=== PATIENT | female | born 1960 | race American Indian/Alaskan Native ===

== ENCOUNTER 2017-04-20 18:13 | Inpatient (IN) | payer MEDICAID ==
[2017-04-20 18:13] VITALS: BMI 42.7
--- NOTE | 2017-04-20 19:08 | C.PDOC ---
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 Patient reports weeping discharge from the wound and a fever yesterday but none today. Denies SOB or vomiting. Time Seen by Provider: 04/20/17 19:02 Chief Complaint (Nursing): Lower Extremity Problem/Injury History Per: Patient History/Exam Limitations: no limitations Onset/Duration Of Symptoms: Days Current Symptoms Are (Timing): Still Present Recent travel outside of the [place]: No Past Medical History Reviewed: Historical Data, Nursing Documentation, Vital Signs Vital Signs: Last Vital Signs Temp 98.1 F 04/20/17 18:35 Pulse 71 04/20/17 18:35 Resp 20 04/20/17 18:35 BP 163/78 H 04/20/17 18:35 Pulse Ox 95 04/20/17 19:58 - Medical History PMH: Anxiety (NO MED), Arthritis, Bronchitis, Diabetes, HTN, Hypercholesterolemia, Migraine Surgical History: No Surg Hx - [facility] Procedures ASSISTANCE WITH RESPIRATORY VENTILATION, 24-96 HRS, CPAP (11/25/16) VENOUS CATHETERIZATION NEC (04/07/14) Family History: States: Unknown Family Hx - Social History Hx Tobacco Use: Yes Hx Alcohol Use: No Hx Substance Use: Yes (on methadone 90 mg po) - Immunization History Hx Tetanus Toxoid Vaccination: Yes Hx Influenza Vaccination: Yes Hx Pneumococcal Vaccination: Yes Review Of Systems Respiratory: Negative for: Shortness of Breath Gastrointestinal: Negative for: Vomiting Musculoskeletal: Positive for: Other (Left lower leg non-healing wound) Neurological: Positive for: Weakness (Left arm from previous CVA), Numbness ( Left arm from previous CVA) Physical Exam - Physical Exam Additional Physical Exam Comments: Constitutional: No acute distress. Head: Normocephalic. Atraumatic. Eyes: PERRL. ENT: Moist mucous membranes. Neck: Supple. Cardiovascular: Regular rate. Radial pulse 2+ bilaterally. Chest: No tenderness. Respiratory: Clear to auscultation bilaterally. GI: Soft. Nontender. Nondistended. Back: No CVA tenderness. Musculoskeletal: Left lower leg w/ bandage Skin: No rash. Neurologic: Alert, no focal deficit. ED Course And Treatment - Laboratory Results Result Diagrams: 04/20/17 19:43 04/20/17 20:03 O2 Sat by Pulse Oximetry: 95 Medical Decision Making Medical Decision Making: Impression: 56 year old female with non-healing wound to lower left leg. Plan: * EKG * Blood work * CXR * Urinalysis * Duoneb EKG: NSR at 85. No acute ST/T wave changes CXR no acute disease. Dr. Godinez accepts patient to his service. Consult placed for Dr. Huynh, who suggests patient may need graft. Disposition - Disposition Disposition: HOSPITALIZED Disposition Time: 20:24 Condition: GUARDED - Clinical Impression Clinical Impression: Diabetic ulcer of lower extremity - Scribe Statement The provider has reviewed the documentation as recorded by the Scribjulisa Ramsey All medical record entries made by the Scribe were at my direction and personally dictated by me. I have reviewed the chart and agree that the record accurately reflects my personal performance of the history, physical exam, medical decision making, and the department course for this patient. I have also personally directed, reviewed, and agree with the discharge instructions and disposition.
[2017-04-20 19:46] LABS: EOS # 0.3 K/uL (0.0-0.7); LYMPH # 2.4 K/uL (1.0-4.3); MEAN CORPUSCULAR HEMOGLOBIN 22.1 pg (27.0-31.0); MEAN CORPUSCULAR HGB CONC 30.2 g/dL (33.0-37.0)
[2017-04-20] MEDS ORDERED: Albuterol-Ipratrop 3 mg / 0.5 (3 ml) UD IH STA (19:49)
[2017-04-20 19:56] LABS: INR 0.9
[2017-04-20 20:11] LABS: BASO % 0.4 % (0.0-2.0); EOS % 4.1 % (0.0-4.0); HEMATOCRIT 38.9 % (34.0-47.0); LYMPH % 30.7 % (20.0-40.0); MEAN PLATELET VOLUME 9.2 fL (7.2-11.7); MONO # 0.5 K/uL (0.0-0.8); MONO % 6.9 % (0.0-10.0); RED CELL DISTRIBUTION WIDTH 17.6 % (11.5-14.5)
[2017-04-20] MEDS ORDERED: Albuterol-Ipratrop 3 mg / 0.5 (3 ml) UD ONE (20:16)
[2017-04-20 20:18] LABS: CHLORIDE 97 mmol/L (98-107)
[2017-04-20 20:19] LABS: SODIUM 138 mmol/L (132-148)
[2017-04-20 20:21] LABS: ALB/GLOB RATIO 0.8 (1.0-2.1); ALKALINE PHOSPHATASE 99 U/L (38-126); AST/SGOT 16 U/L (14-36); BILIRUBIN,TOTAL 0.4 mg/dL (0.2-1.3); BLOOD UREA NITROGEN 17 mg/dL (7-17); CARBON DIOXIDE 33 mmol/L (22-30); GFR AFRICAN-AMERICAN > 60; GLUCOSE,RANDOM 167 mg/dL (65-105); TOTAL PROTEIN 7.4 g/dL (6.3-8.3)
[2017-04-20 20:22] LABS: ALT/SGPT 17 U/L (9-52); CALCIUM 8.1 mg/dl (8.6-10.4)
[2017-04-20 21:57] LABS: RBC URINE 3 /hpf (0-3); URINE BACTERIA RARE (<OCC); URINE BILIRUBIN NEGATIVE (NEGATIVE); URINE BLOOD NEGATIVE (NEGATIVE); URINE COLOR Yellow (YELLOW); URINE GLUCOSE (UA) NORMAL (Normal); URINE KETONE NEGATIVE (NEGATIVE); URINE LEUKOCYTE ESTERASE 1+ Leu/uL (Negative); URINE PROTEIN 2+ mg/dL (NEGATIVE); URINE UROBILINOGEN NORMAL mg/dL (0.2-1.0); WBC URINE 13 /hpf (0-5)
[2017-04-20] MEDS: Clindamycin 300 MG in Sodium Chloride 0.9% 50 ML IVPB SCH (22:30)
[2017-04-21] MEDS: Clindamycin 300 MG in Sodium Chloride 0.9% 50 ML IVPB SCH ×4 (04:28→22:08)
[2017-04-21] MEDS: (Novolog) Insulin Aspart, Recombinant 100 u/ml 10 ml vial SC SCH ×4 (07:46→22:09)
--- NOTE | 2017-04-21 08:15 | RAD ---
HISTORY: diabetic leg wound COMPARISON: 11/27/2016 FINDINGS: LUNGS: Diffuse increased interstitial lung markings suggestive for infiltrate and or edema. Prominent patchy bibasilar airspace opacities which may represent infiltrate and or atelectasis. PLEURA: As above. CARDIOVASCULAR: Mild cardiomegaly. OSSEOUS STRUCTURES: Degenerative changes in the spine and shoulders. VISUALIZED UPPER ABDOMEN: Normal. OTHER FINDINGS: None. IMPRESSION: Diffuse increased interstitial lung markings suggestive for infiltrate and or edema. Prominent patchy bibasilar airspace opacities which may represent infiltrate and or atelectasis.
[2017-04-21] MEDS ORDERED: Albuterol-Ipratrop 3 mg / 0.5 (3 ml) UD INH STA (09:53)
[2017-04-21] MEDS: (Novolog Mix 70/30) Insulin Aspart/Insulin Aspar 100 units/ml SC SCH ×2 (10:26→18:51)
[2017-04-21] MEDS: Enoxaparin 40 mg Syringe SC SCH (10:27)
[2017-04-21] MEDS: Methadone 40 mg Tab PO SCH (10:28)
[2017-04-21] MEDS ORDERED: Albuterol-Ipratrop 3 mg / 0.5 (3 ml) UD INH PRN (11:45)
[2017-04-21] MEDS ORDERED: Naproxen 275 mg Tab PO SCH ×2 (11:45→18:00)
--- NOTE | 2017-04-21 12:01 | CP.PCM.CON ---
History of Present Illness - History of Present Illness History of Present Illness: Ms. Collins is a 56 yo female pt w/ pmhx. sign for DM, HTN, and CVA who was seen at bedside this morning concerning left leg wound. Pt was sent by her science tutor Dr. Huynh yesterday to the ED. Pt says that she has had this wound to the left leg for about 1 week in duration. Does complain of some tenderness to the wound edges. Says she has been seeing Dr. Huynh at the office and has been cleaning and applying dressing. She says wound has not improved and is getting worse. Denies f/n/v/c/sob/cp. Denies any other pedal complaints. Review of Systems - Review of Systems Review of Systems: All systems reviewed and found to be negative except HPI findings above. Past Patient History - Infectious Disease Hx of Infectious Diseases: None - Past Medical History & Family History Past Medical History?: Yes - Past Social History Smoking Status: Current Some Days Smoker - CARDIAC Hx Cardiac Disorders: Yes Hx Hypercholesterolemia: Yes Hx Hypertension: Yes Other/Comment: hx CVA with residual left arm weakness and numbness - PULMONARY Hx Respiratory Disorders: Yes Hx Bronchitis: Yes - NEUROLOGICAL Hx Neurological Disorder: Yes Hx Migraine: Yes - HEENT Hx HEENT Problems: Yes Other/Comment: wears prescription eyeglasses - RENAL Hx Chronic Kidney Disease: No - ENDOCRINE/METABOLIC Hx Endocrine Disorders: Yes Hx Diabetes Mellitus Type 1: Yes - HEMATOLOGICAL/ONCOLOGICAL Hx Blood Disorders: No Hx Blood Transfusions: No Hx Blood Transfusion Reaction: No - INTEGUMENTARY Hx Dermatological Problems: No - MUSCULOSKELETAL/RHEUMATOLOGICAL Hx Musculoskeletal Disorders: Yes Hx Arthritis: Yes Hx Falls: No - GASTROINTESTINAL Hx Gastrointestinal Disorders: Yes Hx Constipation: Yes - GENITOURINARY/GYNECOLOGICAL Hx Genitourinary Disorders: No - PSYCHIATRIC Hx Psychophysiologic Disorder: Yes Hx Anxiety: Yes (NO MED) Hx Substance Use: Yes (on methadone 90 mg po) - SURGICAL HISTORY Hx Surgeries: Yes Hx Section: Yes Other/Comment: BOTH LEGS SKIN GRAFT - ANESTHESIA Hx Anesthesia: Yes Hx Anesthesia Reactions: No Hx Malignant Hyperthermia: No Has any member of the family had a problem w/ anesthesia?: No Meds Allergies/Adverse Reactions: Allergies Allergy/AdvReac Type Severity Reaction Status Date / Time No Known Allergies Allergy Verified 04/20/17 18:34 - Medications Medications: Current Medications Albuterol/Ipratropium (Duoneb 3 Mg/0.5 Mg (3 Ml) Ud) 3 ml INH RQ6 PRN PRN Reason: Wheezing Amlodipine Besylate (Norvasc) 10 mg PO DAILY [facility] Last Admin: 04/21/17 10:28 Dose: 10 mg Carvedilol (Coreg) 3.125 mg PO BID [facility] Last Admin: 04/21/17 10:28 Dose: 3.125 mg Enoxaparin Sodium (Lovenox) 40 mg SC DAILY [facility] Last Admin: 04/21/17 10:27 Dose: 40 mg Clindamycin Phosphate 300 mg/ (Sodium Chloride) 52 mls @ 100 mls/hr IVPB Q6H [facility] Last Admin: 04/21/17 10:27 Dose: 100 mls/hr Insulin Aspart (Novolog) 0 unit SC ACHS [facility] PRN Reason: Protocol Last Admin: 04/21/17 11:41 Dose: 1 unit Insulin Aspart (Novolog Mix 70/30 (70/30 Units/Ml)) 36 units SC QPM [facility] Insulin Aspart (Novolog Mix 70/30 (70/30 Units/Ml)) 40 units SC QAM [facility] Last Admin: 04/21/17 10:26 Dose: 40 units Losartan Potassium (Cozaar) 50 mg PO DAILY [facility] Last Admin: 04/21/17 10:28 Dose: 50 mg Methadone HCl (Methadose) 120 mg PO DAILY [facility] Last Admin: 04/21/17 10:28 Dose: 120 mg Mupirocin (Bactroban Ointment) 0 gm TOP BID [facility] Last Admin: 04/21/17 11:39 Dose: 1 applic Naproxen (Anaprox) 275 mg PO BID [facility] Rosuvastatin Calcium (Crestor) 10 mg PO [facility] Physical Exam - Constitutional Appears: Non-toxic, No Acute Distress - Extremities Exam Extremities exam: Negative for: calf tenderness Additional comments: LLE focused exam: VASC- DP/PT pulses are palpable, skin temp runs warm to cool, cap refill < 3 sec to all digits, no pedal edema noted DERM- full thickness ulceration is noted to distal aspect of leg, wound appears mixed fibro-granular base, no malodor, no surrounding erythema, no ascending cellulitis, no purulence, slight serous drainage is noted, no fluctuance, no underming, (-) probe to bone NEURO- pedal sensation slightly diminished ORTHO- slight tenderness noted on palpation of wound bed and border - Neurological Exam Neurological exam: Alert, CN II-XII Intact, Oriented x3 - Psychiatric Exam Psychiatric exam: Normal Affect, Normal Mood Results - Vital Signs Recent Vital Signs: Last Vital Signs Temp 97.8 F 04/21/17 08:15 Pulse 107 H 04/21/17 10:15 Resp 20 04/21/17 08:15 BP 148/92 H 04/21/17 08:15 Pulse Ox 93 L 04/21/17 08:15 - Labs Result Diagrams: 04/20/17 19:43 04/20/17 20:03 Labs: Laboratory Results - last 24 hr 04/20/17 04/20/17 04/21/17 20:45 21:32 07:21 POC Glucose (mg/dL) 200 H Urine Color Yellow Urine Clarity Hazy Urine pH 6.0 Ur Specific [place] 1.019 Urine Protein 2+ H Urine Glucose (UA) Normal Urine Ketones Negative Urine Blood Negative Urine Nitrate Negative Urine Bilirubin Negative Urine Urobilinogen Normal Ur Leukocyte Esterase 1+ H Urine WBC (Auto) 13 H Urine RBC (Auto) 3 Ur Squamous Epith Cells 15 H Urine Bacteria Rare Blood Type A NEGATIVE Antibody Screen Negative 04/21/17 11:32 POC Glucose (mg/dL) 160 H Urine Color Urine Clarity Urine pH Ur Specific [place] Urine Protein Urine Glucose (UA) Urine Ketones Urine Blood Urine Nitrate Urine Bilirubin Urine Urobilinogen Ur Leukocyte Esterase Urine WBC (Auto) Urine RBC (Auto) Ur Squamous Epith Cells Urine Bacteria Blood Type Antibody Screen Assessment & Plan - Assessment and Plan (Free Text) Assessment: 56 yo female patient with chronic non-healing ulceration of left leg Plan: Pt S&E at bedside Plan discussed with attending Dr. Huynh Wound cleansed with sterile normal saline, bactroban, xeroform, DSD dressing applied Wound cx ordered c/w IV abx per ID (on clinda 300 mg IV q6) Full WBAT to left lower ext. Podiatry will continue to monitor closely
[2017-04-21] MEDS ORDERED: Naproxen 550 mg Tab PO STA (14:10)
--- NOTE | 2017-04-21 23:10 | CP.PCM.HP ---
History of Present Illness - History of Present Illness History of Present Illness: Patient is a 56 year old female with a Hx of DM, HTN, and CVA with residual left arm weakness and numbness who presents to the ER with a complaint of a non- healing wound to the left lower leg for the past week. Patient reports weeping discharge from the wound and a fever yesterday but none today. Denies SOB or vomiting. Present on Admission - Present on Admission Any Indicators Present on Admission: Yes Past Patient History - Infectious Disease Hx of Infectious Diseases: None - Past Medical History & Family History Past Medical History?: Yes - Past Social History Smoking Status: Current Some Days Smoker - CARDIAC Hx Cardiac Disorders: Yes Hx Hypercholesterolemia: Yes Hx Hypertension: Yes Other/Comment: hx CVA with residual left arm weakness and numbness - PULMONARY Hx Respiratory Disorders: Yes Hx Bronchitis: Yes - NEUROLOGICAL Hx Neurological Disorder: Yes Hx Migraine: Yes - HEENT Hx HEENT Problems: Yes Other/Comment: wears prescription eyeglasses - RENAL Hx Chronic Kidney Disease: No - ENDOCRINE/METABOLIC Hx Endocrine Disorders: Yes Hx Diabetes Mellitus Type 1: Yes - HEMATOLOGICAL/ONCOLOGICAL Hx Blood Disorders: No Hx Blood Transfusions: No Hx Blood Transfusion Reaction: No - INTEGUMENTARY Hx Dermatological Problems: No - MUSCULOSKELETAL/RHEUMATOLOGICAL Hx Musculoskeletal Disorders: Yes Hx Arthritis: Yes Hx Falls: No - GASTROINTESTINAL Hx Gastrointestinal Disorders: Yes Hx Constipation: Yes - GENITOURINARY/GYNECOLOGICAL Hx Genitourinary Disorders: No - PSYCHIATRIC Hx Psychophysiologic Disorder: Yes Hx Anxiety: Yes (NO MED) Hx Substance Use: Yes (on methadone 90 mg po) - SURGICAL HISTORY Hx Surgeries: Yes Hx Section: Yes Other/Comment: BOTH LEGS SKIN GRAFT - ANESTHESIA Hx Anesthesia: Yes Hx Anesthesia Reactions: No Hx Malignant Hyperthermia: No Has any member of the family had a problem w/ anesthesia?: No Meds Allergies/Adverse Reactions: Allergies Allergy/AdvReac Type Severity Reaction Status Date / Time No Known Allergies Allergy Verified 04/20/17 18:34 Physical Exam - Constitutional Appears: No Acute Distress - Head Exam Head Exam: ATRAUMATIC, NORMAL INSPECTION, NORMOCEPHALIC - Eye Exam Eye Exam: EOMI, Normal appearance, PERRL Pupil Exam: NORMAL ACCOMODATION, PERRL - Respiratory Exam Respiratory Exam: Clear to Auscultation Bilateral, NORMAL BREATHING PATTERN - Cardiovascular Exam Cardiovascular Exam: REGULAR RHYTHM - GI/Abdominal Exam GI & Abdominal Exam: Normal Bowel Sounds, Soft. absent: Tenderness - Extremities Exam Additional comments: LLE focused exam: VASC- DP/PT pulses are palpable, skin temp runs warm to cool, cap refill < 3 sec to all digits, no pedal edema noted DERM- full thickness ulceration is noted to distal aspect of leg, wound appears mixed fibro-granular base, no malodor, no surrounding erythema, no ascending cellulitis, no purulence, slight serous drainage is noted, no fluctuance, no underming, (-) probe to bone NEURO- pedal sensation slightly diminished ORTHO- slight tenderness noted on palpation of wound bed and border - Psychiatric Exam Psychiatric exam: Normal Affect, Normal Mood - Skin Skin Exam: Dry, Intact, Normal Color, Warm Results - Vital Signs Recent Vital Signs: Last Vital Signs Temp 98.3 F 04/21/17 15:00 Pulse 79 04/21/17 15:00 Resp 20 04/21/17 15:00 BP 133/91 H 04/21/17 15:00 Pulse Ox 93 L 04/21/17 08:15 - Labs Result Diagrams: 04/23/17 06:18 04/23/17 06:18 Labs: Laboratory Results - last 24 hr 04/21/17 04/21/17 04/21/17 07:21 11:32 16:36 POC Glucose (mg/dL) 200 H 160 H 178 H 04/21/17 04/21/17 21:08 21:46 POC Glucose (mg/dL) 46 L 104 Assessment & Plan (1) Diabetic ulcer of lower extremity Status: Acute Comment: Pt S&E at bedside. Plan discussed with attending Dr. Huynh. Wound cleansed with sterile normal saline, bactroban, xeroform, DSD dressing applied. Wound cx ordered. c/w IV abx per ID (on clinda 300 mg IV q6). Full WBAT to left lower ext. Podiatry will continue to monitor closely
[2017-04-22] MEDS: Naproxen 275 mg Tab PO SCH ×3 (00:44→23:35)
[2017-04-22] MEDS: Clindamycin 300 MG in Sodium Chloride 0.9% 50 ML IVPB SCH ×4 (04:37→21:51)
[2017-04-22] MEDS: Methadone 40 mg Tab PO SCH ×2 (08:50→11:03)
[2017-04-22] MEDS: (Novolog) Insulin Aspart, Recombinant 100 u/ml 10 ml vial SC SCH ×4 (08:51→21:54)
[2017-04-22] MEDS: (Novolog Mix 70/30) Insulin Aspart/Insulin Aspar 100 units/ml SC SCH ×3 (08:52→17:33)
[2017-04-22] MEDS: Enoxaparin 40 mg Syringe SC SCH ×2 (08:53→09:05)
--- NOTE | 2017-04-22 14:48 | CP.PCM.PN ---
Subjective - Date & Time of Evaluation Date of Evaluation: 04/22/17 Time of Evaluation: 11:30 - Subjective Subjective: 56 y/o female patient seen and evaluated at bedside for follow up on left lower extremity chronic open wound. Patient was resting comfortably in bed and in AAOx3. Patient denied any pedal pain at this time. Dressing was intact, clean and dry. Patient denies any symptoms of N/V/F/SOB/Chest pain. Objective - Vital Signs/Intake and Output Vital Signs (last 24 hours): Temp Pulse Resp BP Pulse Ox 98.2 F 81 20 114/64 98 04/22/17 08:19 04/22/17 08:19 04/22/17 08:19 04/22/17 08:19 04/22/17 08:19 Intake and Output: 04/22/17 04/22/17 06:59 18:59 Intake Total 960 Balance 960 - Medications Medications: Current Medications Albuterol/Ipratropium (Duoneb 3 Mg/0.5 Mg (3 Ml) Ud) 3 ml INH RQ6 PRN PRN Reason: Wheezing Amlodipine Besylate (Norvasc) 10 mg PO DAILY [facility] Last Admin: 04/22/17 09:05 Dose: Not Given Carvedilol (Coreg) 3.125 mg PO BID [facility] Last Admin: 04/22/17 09:05 Dose: Not Given Enoxaparin Sodium (Lovenox) 40 mg SC DAILY [facility] Last Admin: 04/22/17 09:05 Dose: Not Given Clindamycin Phosphate 300 mg/ (Sodium Chloride) 52 mls @ 100 mls/hr IVPB Q6H [facility] Last Admin: 04/22/17 11:02 Dose: 100 mls/hr Insulin Aspart (Novolog) 0 unit SC ACHS [facility] PRN Reason: Protocol Last Admin: 04/22/17 11:55 Dose: Not Given Insulin Aspart (Novolog Mix 70/30 (70/30 Units/Ml)) 36 units SC QPM [facility] Last Admin: 04/21/17 18:51 Dose: 36 units Insulin Aspart (Novolog Mix 70/30 (70/30 Units/Ml)) 40 units SC QAM [facility] Last Admin: 04/22/17 11:04 Dose: Not Given Lactulose (Enulose) 20 gm PO HS [facility] Last Admin: 06/11/17 22:09 Dose: 20 gm Losartan Potassium (Cozaar) 50 mg PO DAILY [facility] Last Admin: 04/22/17 09:05 Dose: Not Given Methadone HCl (Methadose) 120 mg PO DAILY [facility] Last Admin: 04/22/17 11:03 Dose: Not Given Mupirocin (Bactroban Ointment) 0 gm TOP BID [facility] Last Admin: 04/22/17 09:06 Dose: Not Given Naproxen (Anaprox) 275 mg PO 0000,1200 [facility] Last Admin: 04/22/17 12:24 Dose: 275 mg Rosuvastatin Calcium (Crestor) 10 mg PO HS [facility] Last Admin: 04/21/17 22:08 Dose: 10 mg - Labs Labs: PT 10.1 SECONDS (9.7-12.2) 04/20/17 19:43 INR 0.9 04/20/17 19:43 APTT 27 SECONDS (21-34) 04/20/17 19:43 - Constitutional Appears: Well, Non-toxic, No Acute Distress - Extremities Exam Additional comments: LLE focused exam: VASC- DP/PT pulses are palpable, skin temp runs warm to cool, cap refill < 3 sec to all digits, no pedal edema noted DERM- full thickness ulceration is noted to distal aspect of leg, wound appears mixed fibro-granular base( 5.5 cm x 6 cm x 0.1cm) no malodor, no surrounding erythema, no ascending cellulitis, no purulence, slight serous drainage is noted , no fluctuance, no underming, (-) probe to bone NEURO- pedal sensation slightly diminished ORTHO- slight tenderness noted on palpation of wound bed and border - Neurological Exam Neurological Exam: Alert, Awake - Psychiatric Exam Psychiatric exam: Normal Affect, Normal Mood Assessment and Plan - Assessment and Plan (Free Text) Assessment: 56 yo female patient with chronic non-healing ulceration of left leg Plan: Patient seen and evaluated at bedside All the questions and concerns were addressed Discussed with attending Dr. Huynh LLRadha- dressing was changed with xeroform and DSD Labs and vitals were reviewed Podiatry plan: Patient to OR on 04/24/17Saturday at 4PM Left lower extremity wound debridement with graft application Needs Medical clearance Anticoagulation has held Podiatry will continue to follow while patient remains in house.
[2017-04-22] MEDS: Albuterol-Ipratrop 3 mg / 0.5 (3 ml) UD INH SCH ×2 (16:04→20:13)
--- NOTE | 2017-04-22 16:55 | CP.PCM.PN ---
Subjective - Date & Time of Evaluation Date of Evaluation: 04/22/17 Time of Evaluation: 11:00 - Subjective Subjective: ALERT, AWAKE, NAD. Objective - Vital Signs/Intake and Output Vital Signs (last 24 hours): Temp Pulse Resp BP Pulse Ox 98 F 80 20 100/68 94 L 04/22/17 16:00 04/22/17 16:00 04/22/17 16:00 04/22/17 16:00 04/22/17 16:00 Intake and Output: 04/22/17 04/22/17 06:59 18:59 Intake Total 960 Balance 960 - Medications Medications: Current Medications Albuterol/Ipratropium (Duoneb 3 Mg/0.5 Mg (3 Ml) Ud) 3 ml INH RQ6 [facility] Last Admin: 04/22/17 16:04 Dose: 3 ml Amlodipine Besylate (Norvasc) 10 mg PO DAILY [facility] Last Admin: 04/22/17 09:05 Dose: Not Given Carvedilol (Coreg) 3.125 mg PO BID [facility] Last Admin: 04/22/17 09:05 Dose: Not Given Enoxaparin Sodium (Lovenox) 40 mg SC DAILY [facility] Last Admin: 04/22/17 09:05 Dose: Not Given Clindamycin Phosphate 300 mg/ (Sodium Chloride) 52 mls @ 100 mls/hr IVPB Q6H [facility] Last Admin: 04/22/17 16:18 Dose: 100 mls/hr Insulin Aspart (Novolog) 0 unit SC ACHS [facility] PRN Reason: Protocol Last Admin: 04/22/17 11:55 Dose: Not Given Insulin Aspart (Novolog Mix 70/30 (70/30 Units/Ml)) 36 units SC QPM [facility] Last Admin: 04/21/17 18:51 Dose: 36 units Insulin Aspart (Novolog Mix 70/30 (70/30 Units/Ml)) 40 units SC QAM [facility] Last Admin: 04/22/17 11:04 Dose: Not Given Lactulose (Enulose) 20 gm PO HS [facility] Last Admin: 04/21/17 22:09 Dose: 20 gm Losartan Potassium (Cozaar) 50 mg PO DAILY [facility] Last Admin: 04/22/17 09:05 Dose: Not Given Methadone HCl (Methadose) 120 mg PO DAILY [facility] Last Admin: 04/22/17 11:03 Dose: Not Given Methylprednisolone (Solu-Medrol) 40 mg IVP Q8H [facility] Mupirocin (Bactroban Ointment) 0 gm TOP BID [facility] Last Admin: 04/22/17 09:06 Dose: Not Given Naproxen (Anaprox) 275 mg PO 0000,1200 [facility] Last Admin: 04/22/17 12:24 Dose: 275 mg Rosuvastatin Calcium (Crestor) 10 mg PO HS [facility] Last Admin: 04/21/17 22:08 Dose: 10 mg - Labs Labs: PT 10.1 SECONDS (9.7-12.2) 04/20/17 19:43 INR 0.9 04/20/17 19:43 APTT 27 SECONDS (21-34) 04/20/17 19:43 Assessment and Plan - Assessment and Plan (Free Text) Assessment: Patient notified with cough and wheezing. H/O asthma, on home nebulizer treatments. Seen and examined, alert, orientedx3, lungs with minimal wheezing, no sob or chest pains. Started on duoneb q 6houly and solumedrol ivp q8h started. To monitor closely.
[2017-04-22] MEDS: MethylPREDNISolone 40 mg Vial IVP SCH ×2 (17:37→23:45)
--- NOTE | 2017-04-22 22:49 | CP.PCM.PN ---
Subjective - Date & Time of Evaluation Date of Evaluation: 04/22/17 Time of Evaluation: 19:35 - Subjective Subjective: Patient seen and evaluated at bedside, afebrile, no shortness of breath Labs and vitals were reviewed Podiatry plan: Patient to OR on 04/24/17Saturday at 4PM Left lower extremity wound debridement with graft application Anticoagulation has held Objective - Vital Signs/Intake and Output Vital Signs (last 24 hours): Temp Pulse Resp BP Pulse Ox 98 F 80 20 100/68 94 L 04/22/17 16:00 04/22/17 16:00 04/22/17 16:00 04/22/17 16:00 04/22/17 16:00 - Medications Medications: Current Medications Albuterol/Ipratropium (Duoneb 3 Mg/0.5 Mg (3 Ml) Ud) 3 ml INH RQ6 [facility] Last Admin: 04/22/17 20:13 Dose: 3 ml Amlodipine Besylate (Norvasc) 10 mg PO DAILY [facility] Last Admin: 04/22/17 09:05 Dose: Not Given Carvedilol (Coreg) 3.125 mg PO BID [facility] Last Admin: 04/22/17 17:35 Dose: Not Given Enoxaparin Sodium (Lovenox) 40 mg SC DAILY [facility] Last Admin: 04/22/17 09:05 Dose: Not Given Clindamycin Phosphate 300 mg/ (Sodium Chloride) 52 mls @ 100 mls/hr IVPB Q6H [facility] Last Admin: 04/22/17 21:51 Dose: 100 mls/hr Insulin Aspart (Novolog) 0 unit SC ACHS [facility] PRN Reason: Protocol Last Admin: 04/22/17 21:54 Dose: Not Given Insulin Aspart (Novolog Mix 70/30 (70/30 Units/Ml)) 36 units SC QPM [facility] Last Admin: 04/22/17 17:33 Dose: Not Given Insulin Aspart (Novolog Mix 70/30 (70/30 Units/Ml)) 40 units SC QAM [facility] Last Admin: 04/22/17 11:04 Dose: Not Given Lactulose (Enulose) 20 gm PO HS [facility] Last Admin: 04/22/17 21:52 Dose: Not Given Losartan Potassium (Cozaar) 50 mg PO DAILY [facility] Last Admin: 04/22/17 09:05 Dose: Not Given Methadone HCl (Methadose) 120 mg PO DAILY [facility] Last Admin: 04/22/17 11:03 Dose: Not Given Methylprednisolone (Solu-Medrol) 40 mg IVP Q8H [facility] Last Admin: 04/22/17 17:37 Dose: 40 mg Mupirocin (Bactroban Ointment) 0 gm TOP BID [facility] Last Admin: 04/22/17 21:52 Dose: Not Given Naproxen (Anaprox) 275 mg PO 0000,1200 [facility] Last Admin: 04/22/17 12:24 Dose: 275 mg Rosuvastatin Calcium (Crestor) 10 mg PO HS [facility] Last Admin: 04/22/17 21:50 Dose: 10 mg - Labs Labs: PT 10.1 SECONDS (9.7-12.2) 04/20/17 19:43 INR 0.9 04/20/17 19:43 APTT 27 SECONDS (21-34) 04/20/17 19:43 - Constitutional Appears: No Acute Distress - Head Exam Head Exam: ATRAUMATIC, NORMAL INSPECTION, NORMOCEPHALIC - Eye Exam Eye Exam: EOMI, Normal appearance, PERRL Pupil Exam: NORMAL ACCOMODATION, PERRL - Respiratory Exam Respiratory Exam: Clear to Ausculation Bilateral, NORMAL BREATHING PATTERN - Cardiovascular Exam Cardiovascular Exam: REGULAR RHYTHM, +S1, +S2. absent: Murmur - GI/Abdominal Exam GI & Abdominal Exam: Soft, Normal Bowel Sounds. absent: Tenderness - Extremities Exam Extremities Exam: Pedal Edema, Tenderness - Neurological Exam Neurological Exam: Alert, Awake, CN II-XII Intact, Normal Gait, Oriented x3 Assessment and Plan (1) Diabetic ulcer of lower extremity Status: Acute (2) HTN (hypertension) Status: Acute
[2017-04-23] MEDS: Clindamycin 300 MG in Sodium Chloride 0.9% 50 ML IVPB SCH ×3 (05:00→16:32)
[2017-04-23 06:28] LABS: BASO % 0.2 % (0.0-2.0); EOS % 0.1 % (0.0-4.0); HEMATOCRIT 37.5 % (34.0-47.0); LYMPH # 1.2 K/uL (1.0-4.3); LYMPH % 15.9 % (20.0-40.0); MEAN CELL VOLUME 73.1 fL (81.0-99.0); MEAN CORPUSCULAR HEMOGLOBIN 22.2 pg (27.0-31.0); MEAN CORPUSCULAR HGB CONC 30.3 g/dL (33.0-37.0); MEAN PLATELET VOLUME 9.2 fL (7.2-11.7); MONO # 0.1 K/uL (0.0-0.8); MONO % 0.8 % (0.0-10.0); RED CELL DISTRIBUTION WIDTH 17.9 % (11.5-14.5); WHITE BLOOD COUNT 7.6 K/uL (4.8-10.8)
[2017-04-23 06:56] LABS: CHLORIDE 95 mmol/L (98-107); POTASSIUM 5.1 mmol/L (3.6-5.2); SODIUM 134 mmol/L (132-148)
[2017-04-23 06:59] LABS: CARBON DIOXIDE 31 mmol/L (22-30); GFR AFRICAN-AMERICAN > 60
[2017-04-23 07:00] LABS: BLOOD UREA NITROGEN 26 mg/dL (7-17); CALCIUM 8.3 mg/dl (8.6-10.4); GLUCOSE,RANDOM 317 mg/dL (65-105)
[2017-04-23] MEDS: (Novolog) Insulin Aspart, Recombinant 100 u/ml 10 ml vial SC SCH ×4 (08:39→21:26)
[2017-04-23] MEDS: (Novolog Mix 70/30) Insulin Aspart/Insulin Aspar 100 units/ml SC SCH ×3 (08:39→18:00)
[2017-04-23] MEDS: MethylPREDNISolone 40 mg Vial IVP SCH ×2 (08:40→16:30)
[2017-04-23] MEDS: Methadone 40 mg Tab PO SCH ×2 (08:40→10:02)
[2017-04-23] MEDS: Albuterol-Ipratrop 3 mg / 0.5 (3 ml) UD INH SCH ×3 (08:59→20:06)
--- NOTE | 2017-04-23 11:51 | CP.PCM.PN ---
Subjective - Date & Time of Evaluation Date of Evaluation: 04/23/17 Time of Evaluation: 11:47 - Subjective Subjective: 56 y/o female patient seen and evaluated at bedside for follow up on left lower extremity chronic open wound. Patient was resting comfortably in bed and in AAOx3. Patient denied any pedal pain at this time. Dressing was intact, clean and dry. Patient denies any symptoms of N/V/F/SOB/Chest pain. Objective - Vital Signs/Intake and Output Vital Signs (last 24 hours): Temp Pulse Resp BP Pulse Ox 98.3 F 84 20 134/83 92 L 04/23/17 08:00 04/23/17 08:00 04/23/17 08:00 04/23/17 08:00 04/23/17 08:00 Intake and Output: 04/23/17 04/23/17 06:59 18:59 Intake Total 250 Balance 250 - Medications Medications: Current Medications Albuterol/Ipratropium (Duoneb 3 Mg/0.5 Mg (3 Ml) Ud) 3 ml INH RQ6 [facility] Last Admin: 04/23/17 08:59 Dose: 3 ml Amlodipine Besylate (Norvasc) 10 mg PO DAILY [facility] Last Admin: 04/23/17 10:02 Dose: Not Given Carvedilol (Coreg) 3.125 mg PO BID [facility] Last Admin: 04/23/17 10:02 Dose: Not Given Enoxaparin Sodium (Lovenox) 40 mg SC DAILY [facility] Last Admin: 04/22/17 09:05 Dose: Not Given Clindamycin Phosphate 300 mg/ (Sodium Chloride) 52 mls @ 100 mls/hr IVPB Q6H [facility] Last Admin: 04/23/17 09:56 Dose: 100 mls/hr Insulin Aspart (Novolog) 0 unit SC ACHS [facility] PRN Reason: Protocol Last Admin: 04/23/17 08:39 Dose: 4 unit Insulin Aspart (Novolog Mix 70/30 (70/30 Units/Ml)) 36 units SC QPM [facility] Last Admin: 04/22/17 17:33 Dose: Not Given Insulin Aspart (Novolog Mix 70/30 (70/30 Units/Ml)) 40 units SC QAM [facility] Last Admin: 04/23/17 10:01 Dose: Not Given Lactulose (Enulose) 20 gm PO HS [facility] Last Admin: 04/22/17 21:52 Dose: Not Given Losartan Potassium (Cozaar) 50 mg PO DAILY [facility] Last Admin: 04/23/17 10:02 Dose: Not Given Methadone HCl (Methadose) 120 mg PO DAILY [facility] Last Admin: 04/23/17 10:02 Dose: Not Given Methylprednisolone (Solu-Medrol) 40 mg IVP Q8H [facility] Last Admin: 04/23/17 08:40 Dose: 40 mg Mupirocin (Bactroban Ointment) 0 gm TOP BID [facility] Last Admin: 04/23/17 09:59 Dose: 1 applic Naproxen (Anaprox) 275 mg PO 0000,1200 [facility] Last Admin: 04/22/17 23:35 Dose: 275 mg Rosuvastatin Calcium (Crestor) 10 mg PO HS [facility] Last Admin: 04/22/17 21:50 Dose: 10 mg - Labs Labs: 04/23/17 06:18 04/23/17 06:18 PT 10.1 SECONDS (9.7-12.2) 04/20/17 19:43 INR 0.9 04/20/17 19:43 APTT 27 SECONDS (21-34) 04/20/17 19:43 - Constitutional Appears: Well, Non-toxic, No Acute Distress - Extremities Exam Additional comments: LLE focused exam: VASC- DP/PT pulses are palpable, skin temp runs warm to cool, cap refill < 3 sec to all digits, no pedal edema noted DERM- full thickness ulceration is noted to distal aspect of leg, wound appears mixed fibro-granular base( 5.5 cm x 6 cm x 0.1cm) no malodor, no surrounding erythema, no ascending cellulitis, no purulence, slight serous drainage is noted , no fluctuance, no underming, (-) probe to bone, elongated and thickened toe nails NEURO- pedal sensation slightly diminished ORTHO- slight tenderness noted on palpation of wound bed and border - Neurological Exam Neurological Exam: Alert, Awake - Psychiatric Exam Psychiatric exam: Normal Affect, Normal Mood Assessment and Plan - Assessment and Plan (Free Text) Assessment: 56 yo female patient with chronic non-healing ulceration of left leg Plan: Patient seen and evaluated at bedside All the questions and concerns were addressed Discussed with attending Dr. Huynh LLE- dressing was changed with xeroform and DSD Toe nails were debrided Labs and vitals were reviewed Podiatry plan: Patient to OR on 04/24/17Saturday at 4PM Left lower extremity wound debridement with graft application Medical clearance has obtained and in the chart Consent signs and in the chart Patient will be NPO after early breakfast tomorrow morning Anticoagulation has held Patient can be discharge home after podiatry procedure Patient will f/u with Dr. Huynh upon D/C. Podiatry will continue to follow while patient remains in house.
[2017-04-23] MEDS: Naproxen 275 mg Tab PO SCH (13:00)
--- NOTE | 2017-04-23 15:23 | CP.PCM.PN ---
Subjective - Date & Time of Evaluation Date of Evaluation: 04/23/17 Time of Evaluation: 20:25 - Subjective Subjective: Pt is seen and examined, is anxious c/o constipation, she is for skin graft her wound cultures are positive for psedomonas. Objective - Vital Signs/Intake and Output Vital Signs (last 24 hours): Temp Pulse Resp BP Pulse Ox 98.3 F 84 20 134/83 92 L 04/23/17 08:00 04/23/17 08:00 04/23/17 08:00 04/23/17 08:00 04/23/17 08:00 Intake and Output: 04/23/17 04/23/17 06:59 18:59 Intake Total 250 300 Balance 250 300 - Medications Medications: Current Medications Albuterol/Ipratropium (Duoneb 3 Mg/0.5 Mg (3 Ml) Ud) 3 ml INH RQ6 [facility] Last Admin: 04/23/17 13:25 Dose: 3 ml Amlodipine Besylate (Norvasc) 10 mg PO DAILY [facility] Last Admin: 04/23/17 10:02 Dose: Not Given Carvedilol (Coreg) 3.125 mg PO BID [facility] Last Admin: 04/23/17 10:02 Dose: Not Given Enoxaparin Sodium (Lovenox) 40 mg SC DAILY [facility] Last Admin: 04/22/17 09:05 Dose: Not Given Clindamycin Phosphate 300 mg/ (Sodium Chloride) 52 mls @ 100 mls/hr IVPB Q6H [facility] Last Admin: 04/23/17 09:56 Dose: 100 mls/hr Insulin Aspart (Novolog) 0 unit SC ACHS [facility] PRN Reason: Protocol Last Admin: 04/23/17 11:30 Dose: 1 unit Insulin Aspart (Novolog Mix 70/30 (70/30 Units/Ml)) 36 units SC QPM [facility] Last Admin: 04/22/17 17:33 Dose: Not Given Insulin Aspart (Novolog Mix 70/30 (70/30 Units/Ml)) 40 units SC QAM [facility] Last Admin: 04/23/17 10:01 Dose: Not Given Lactulose (Enulose) 20 gm PO HS [facility] Last Admin: 04/22/17 21:52 Dose: Not Given Losartan Potassium (Cozaar) 50 mg PO DAILY [facility] Last Admin: 04/23/17 10:02 Dose: Not Given Methadone HCl (Methadose) 120 mg PO DAILY [facility] Last Admin: 04/23/17 10:02 Dose: Not Given Methylprednisolone (Solu-Medrol) 40 mg IVP Q8H [facility] Last Admin: 04/23/17 08:40 Dose: 40 mg Mupirocin (Bactroban Ointment) 0 gm TOP BID [facility] Last Admin: 04/23/17 09:59 Dose: 1 applic Naproxen (Anaprox) 275 mg PO 0000,1200 [facility] Last Admin: 04/23/17 13:00 Dose: 275 mg Rosuvastatin Calcium (Crestor) 10 mg PO HS [facility] Last Admin: 04/22/17 21:50 Dose: 10 mg - Labs Labs: 04/23/17 06:18 04/23/17 06:18 PT 10.1 SECONDS (9.7-12.2) 04/20/17 19:43 INR 0.9 04/20/17 19:43 APTT 27 SECONDS (21-34) 04/20/17 19:43 - Constitutional Appears: No Acute Distress - Head Exam Head Exam: ATRAUMATIC, NORMAL INSPECTION, NORMOCEPHALIC - Eye Exam Eye Exam: EOMI, Normal appearance, PERRL Pupil Exam: NORMAL ACCOMODATION, PERRL - Respiratory Exam Respiratory Exam: Clear to Ausculation Bilateral, NORMAL BREATHING PATTERN - Cardiovascular Exam Cardiovascular Exam: REGULAR RHYTHM, +S1, +S2. absent: Murmur Assessment and Plan (1) Diabetic ulcer of lower extremity Status: Acute (2) HTN (hypertension) Status: Acute
[2017-04-23] MEDS ORDERED: Piperacill/Tazo 3.375gm in Dex 3.375 GM/50 ML BAG IVPB SCH ×2 (18:45→19:00)
[2017-04-23] MEDS ORDERED: Gentamicin 160 MG in Sodium Chloride 0.9% 100 ML IVPB ONE (18:46)
[2017-04-23] MEDS ORDERED: Piperacillin/Tazobact 3.375 GM in Sodium Chloride 100 ML IVPB SCH (23:00)
[2017-04-23] MEDS: Piperacill/Tazo 3.375gm in Dex 3.375 GM/50 ML BAG IVPB SCH (23:16)
[2017-04-24] MEDS: Naproxen 275 mg Tab PO SCH ×2 (00:05→12:55)
[2017-04-24] MEDS: MethylPREDNISolone 40 mg Vial IVP SCH ×3 (00:06→17:42)
[2017-04-24] MEDS: Piperacill/Tazo 3.375gm in Dex 3.375 GM/50 ML BAG IVPB SCH ×3 (06:31→21:23)
[2017-04-24] MEDS: Albuterol-Ipratrop 3 mg / 0.5 (3 ml) UD INH SCH ×3 (08:11→20:12)
[2017-04-24] MEDS: Methadone 40 mg Tab PO SCH (09:48)
[2017-04-24] MEDS: (Novolog) Insulin Aspart, Recombinant 100 u/ml 10 ml vial SC SCH ×4 (09:49→22:06)
[2017-04-24] MEDS: (Novolog Mix 70/30) Insulin Aspart/Insulin Aspar 100 units/ml SC SCH ×2 (09:55→17:41)
--- NOTE | 2017-04-24 10:33 | CP.PCM.PN ---
Subjective - Date & Time of Evaluation Date of Evaluation: 04/24/17 Time of Evaluation: 10:32 - Subjective Subjective: 56 y/o female patient seen and evaluated at bedside for follow up on left lower extremity chronic open wound. Patient was resting comfortably in bed and in AAOx3. Patient denied any pedal pain at this time. Dressing was intact, clean and dry. Patient to OR today at 4PM. Patient states that she had a breakfast at 8:30am this morning. Patient denies any symptoms of N/V/F/SOB/Chest pain. Objective - Vital Signs/Intake and Output Vital Signs (last 24 hours): Temp Pulse Resp BP Pulse Ox 98.1 F 85 20 135/80 95 04/23/17 23:31 04/23/17 23:31 04/23/17 23:31 04/23/17 23:31 04/23/17 23:31 Intake and Output: 04/24/17 04/24/17 06:59 18:59 Intake Total 290 240 Balance 290 240 - Medications Medications: Current Medications Albuterol/Ipratropium (Duoneb 3 Mg/0.5 Mg (3 Ml) Ud) 3 ml INH RQ6 [facility] Last Admin: 04/24/17 08:11 Dose: 3 ml Amlodipine Besylate (Norvasc) 10 mg PO DAILY [facility] Last Admin: 04/24/17 09:56 Dose: 10 mg Carvedilol (Coreg) 3.125 mg PO BID [facility] Last Admin: 04/24/17 09:49 Dose: 3.125 mg Enoxaparin Sodium (Lovenox) 40 mg SC DAILY [facility] Last Admin: 04/22/17 09:05 Dose: Not Given Gentamicin Sulfate 100 mg/ (Sodium Chloride) 102.5 mls @ 100 mls/hr IVPB Q24H [facility] Stop: 04/28/17 19:01 Piperacillin Sod/Tazobactam Sod (Zosyn 3.375 Gm Iv Premix) 3.375 gm in 50 mls @ 100 mls/hr IVPB Q8 [facility] Last Admin: 04/24/17 06:31 Dose: 100 mls/hr Insulin Aspart (Novolog) 0 unit SC ACHS [facility] PRN Reason: Protocol Last Admin: 04/24/17 09:49 Dose: Not Given Insulin Aspart (Novolog Mix 70/30 (70/30 Units/Ml)) 36 units SC QPM [facility] Last Admin: 04/23/17 18:00 Dose: 36 units Insulin Aspart (Novolog Mix 70/30 (70/30 Units/Ml)) 40 units SC QAM [facility] Last Admin: 04/24/17 09:55 Dose: 40 units Lactulose (Enulose) 20 gm PO HS [facility] Last Admin: 04/23/17 21:31 Dose: 20 gm Losartan Potassium (Cozaar) 50 mg PO DAILY [facility] Last Admin: 04/24/17 09:49 Dose: 50 mg Methadone HCl (Methadose) 120 mg PO DAILY [facility] Last Admin: 04/24/17 09:48 Dose: 120 mg Methylprednisolone (Solu-Medrol) 40 mg IVP Q8H [facility] Last Admin: 04/24/17 09:50 Dose: 40 mg Mupirocin (Bactroban Ointment) 0 gm TOP BID [facility] Last Admin: 04/24/17 09:48 Dose: Not Given Naproxen (Anaprox) 275 mg PO 0000,1200 [facility] Last Admin: 04/24/17 00:05 Dose: 275 mg Rosuvastatin Calcium (Crestor) 10 mg PO [facility] Last Admin: 04/23/17 21:20 Dose: 10 mg - Labs Labs: 04/23/17 06:18 04/23/17 06:18 PT 10.1 SECONDS (9.7-12.2) 04/20/17 19:43 INR 0.9 04/20/17 19:43 APTT 27 SECONDS (21-34) 04/20/17 19:43 - Constitutional Appears: Well, Non-toxic, No Acute Distress - Extremities Exam Additional comments: Left lower extremity dressing intact, clean and dry. CFT is less than 3 seconds , DP and PT palpable. - Neurological Exam Neurological Exam: Alert, Awake - Psychiatric Exam Psychiatric exam: Normal Affect, Normal Mood Assessment and Plan - Assessment and Plan (Free Text) Assessment: 56 yo female patient with chronic non-healing ulceration of left leg Plan: Patient seen and evaluated at bedside All the questions and concerns were addressed Discussed with attending Dr. Huynh Labs and vitals were reviewed Podiatry plan: Patient to OR on today at 4PM Left lower extremity wound debridement with graft application Medical clearance has obtained and in the chart Consent signs and in the chart NPO status is confirmed ( Breakfast was 8:30am) Anticoagulation has held Patient can be discharge home after podiatry procedure Patient will f/u with Dr. Huynh upon D/C. Podiatry will continue to follow while patient remains in house.
--- NOTE | 2017-04-24 11:55 | CARD ---
APPROVED REPORT EKG Measurement Heart [id number] <Conclusion> Normal sinus rhythm Cannot rule out Anterior infarct, age undetermined Abnormal ECG
--- NOTE | 2017-04-24 12:00 | CP.PCM.CON ---
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 Patient reports weeping discharge from the wound and intermittent fevers. patient was being followed by Dr. Huynh outpatient but failed outpatient therapy and was advised admission. Patient's left leg ulcer wound cultures came back positive for Pseudomonas aeruginosa/and Enterococcus faecalis. Patient is presently on IV clindamycin.. INFECTIOUS DISEASE CONSULTATION REQUESTED BY pmd FOR APPROPRIATE ANTIBIOTIC THERAPY AND NONHEALING LEFT LEG WOUND. REPORTED PATIENT IS FOR OR TODAY FOR DEBRIDEMENT. HISTORY IS LIMITED, PATIENT UNABLE TO GIVE DETAILS HISTORY OBTAINED MAINLY FROM THE CHART AND STAFF. PMH: Anxiety (NO MED), Arthritis, Bronchitis, Diabetes, HTN, Hypercholesterolemia, Migraine Surgical History: No Surg Hx - [facility] Procedures ASSISTANCE WITH RESPIRATORY VENTILATION, 24-96 HRS, CPAP (11/25/16) VENOUS CATHETERIZATION NEC (04/07/14) Family History: States: Unknown Family Hx - Social History Hx Tobacco Use: Yes Hx Alcohol Use: No Hx Substance Use: Yes (on methadone 90 mg po) - Immunization History Hx Tetanus Toxoid Vaccination: Yes Hx Influenza Vaccination: Yes Hx Pneumococcal Vaccination: Yes Review of Systems - Constitutional Constitutional: absent: Chills, Fever - EENT Eyes: absent: Change in Vision Nose/Mouth/Throat: Dry Mouth - Cardiovascular Cardiovascular: absent: Chest Pain - Respiratory Respiratory: absent: Dyspnea - Gastrointestinal Gastrointestinal: absent: Abdominal Pain, Diarrhea, Nausea, Vomiting - Genitourinary Genitourinary: As Per HPI - Integumentary Integumentary: Wounds (LEFT LOWER LEG OPEN WOUND WITH A DIRTY GREYISH BASE.MARGINS WITH A PURPILISH HUE.) - Hematologic/Lymphatic Hematologic: As Per HPI. 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 - PULMONARY Hx Respiratory Disorders: Yes Hx Bronchitis: Yes - NEUROLOGICAL Hx Neurological Disorder: Yes Hx Migraine: Yes - HEENT Hx HEENT Problems: Yes Other/Comment: wears prescription eyeglasses - RENAL Hx Chronic Kidney Disease: No - ENDOCRINE/METABOLIC Hx Endocrine Disorders: Yes Hx Diabetes Mellitus Type 1: Yes - HEMATOLOGICAL/ONCOLOGICAL Hx Blood Disorders: No Hx Blood Transfusions: No Hx Blood Transfusion Reaction: No - INTEGUMENTARY Hx Dermatological Problems: No - MUSCULOSKELETAL/RHEUMATOLOGICAL Hx Musculoskeletal Disorders: Yes Hx Arthritis: Yes Hx Falls: No - GASTROINTESTINAL Hx Gastrointestinal Disorders: Yes Hx Constipation: Yes - GENITOURINARY/GYNECOLOGICAL Hx Genitourinary Disorders: No - PSYCHIATRIC Hx Psychophysiologic Disorder: Yes Hx Anxiety: Yes (NO MED) Hx Substance Use: Yes (on methadone 90 mg po) - SURGICAL HISTORY Hx Surgeries: Yes Hx Section: Yes Other/Comment: BOTH LEGS SKIN GRAFT - ANESTHESIA Hx Anesthesia: Yes Hx Anesthesia Reactions: No Hx Malignant Hyperthermia: No Has any member of the family had a problem w/ anesthesia?: No Meds Allergies/Adverse Reactions: Allergies Allergy/AdvReac Type Severity Reaction Status Date / Time No Known Allergies Allergy Verified 04/20/17 18:34 - Medications Medications: Current Medications Albuterol/Ipratropium (Duoneb 3 Mg/0.5 Mg (3 Ml) Ud) 3 ml INH RQ6 [facility] Last Admin: 04/24/17 08:11 Dose: 3 ml Amlodipine Besylate (Norvasc) 10 mg PO DAILY [facility] Last Admin: 04/24/17 09:56 Dose: 10 mg Carvedilol (Coreg) 3.125 mg PO BID [facility] Last Admin: 04/24/17 09:49 Dose: 3.125 mg Enoxaparin Sodium (Lovenox) 40 mg SC DAILY [facility] Last Admin: 04/22/17 09:05 Dose: Not Given Gentamicin Sulfate 100 mg/ (Sodium Chloride) 102.5 mls @ 100 mls/hr IVPB Q24H [facility] Stop: 04/28/17 19:01 Piperacillin Sod/Tazobactam Sod (Zosyn 3.375 Gm Iv Premix) 3.375 gm in 50 mls @ 100 mls/hr IVPB Q8 [facility] Last Admin: 04/24/17 06:31 Dose: 100 mls/hr Insulin Aspart (Novolog) 0 unit SC ACHS [facility] PRN Reason: Protocol Last Admin: 04/24/17 09:49 Dose: Not Given Insulin Aspart (Novolog Mix 70/30 (70/30 Units/Ml)) 36 units SC QPM [facility] Last Admin: 04/23/17 18:00 Dose: 36 units Insulin Aspart (Novolog Mix 70/30 (70/30 Units/Ml)) 40 units SC QAM [facility] Last Admin: 04/24/17 09:55 Dose: 40 units Lactulose (Enulose) 20 gm PO HS [facility] Last Admin: 04/23/17 21:31 Dose: 20 gm Losartan Potassium (Cozaar) 50 mg PO DAILY [facility] Last Admin: 04/24/17 09:49 Dose: 50 mg Methadone HCl (Methadose) 120 mg PO DAILY [facility] Last Admin: 04/24/17 09:48 Dose: 120 mg Methylprednisolone (Solu-Medrol) 40 mg IVP Q8H [facility] Last Admin: 04/24/17 09:50 Dose: 40 mg Mupirocin (Bactroban Ointment) 0 gm TOP BID [facility] Last Admin: 04/24/17 09:48 Dose: Not Given Naproxen (Anaprox) 275 mg PO 0000,1200 [facility] Last Admin: 04/24/17 00:05 Dose: 275 mg Rosuvastatin Calcium (Crestor) 10 mg PO [facility] Last Admin: 04/23/17 21:20 Dose: 10 mg Physical Exam - Constitutional Appears: No Acute Distress - Head Exam Head Exam: NORMAL INSPECTION - Eye Exam Eye Exam: EOMI, PERRL - ENT Exam ENT Exam: Normal Oropharynx - Neck Exam Neck exam: Positive for: Normal Inspection - Respiratory Exam Respiratory Exam: Clear to Auscultation Bilateral - Cardiovascular Exam Cardiovascular Exam: REGULAR RHYTHM, +S1, +S2 - GI/Abdominal Exam GI & Abdominal Exam: Normal Bowel Sounds, Soft - Extremities Exam Extremities exam: Positive for: normal capillary refill, pedal pulses present. Negative for: calf tenderness - Expanded Lower Extremities Exam Left Lower Leg Exam: erythema, swelling, tenderness (LEFT LOWER EXTREMITY IN SOFT TISSUE DRESSING.). absent: crepitus Gait: not tested/not observed - Neurological Exam Neurological exam: Alert, CN II-XII Intact, Oriented x3 - Psychiatric Exam Psychiatric exam: Normal Mood - Skin Skin Exam: Normal Color, Warm Results - Vital Signs Recent Vital Signs: Last Vital Signs Temp 98.1 F 04/23/17 23:31 Pulse 85 04/23/17 23:31 Resp 20 04/23/17 23:31 BP 135/80 04/23/17 23:31 Pulse Ox 95 04/23/17 23:31 - Labs Result Diagrams: 04/23/17 06:18 04/23/17 06:18 Labs: Laboratory Results - last 24 hr 04/23/17 04/23/17 04/23/17 12:36 15:59 21:22 POC Glucose (mg/dL) 188 H 253 H 300 H 04/24/17 07:19 POC Glucose (mg/dL) 276 H Assessment & Plan (1) Diabetic ulcer of lower extremity Status: Acute (2) Cellulitis Status: Acute (3) HTN (hypertension) Status: Acute (4) Uncontrolled diabetes mellitus Status: Acute - Assessment and Plan (Free Text) Plan: PLAN: PANCULTURES ESR,CRP. DC iv CLINDAMYCIN START iv ZOSYN 3.375 EVERY 8 HOURLY 04/23/17 ADD iv GENTAMICIN 160 MG LOADING DOSE, FOLLOW-UP 100 MG ONCE A DAY DAILY X 4 DAYS. MONITOR RENAL FUNCTIONS CLOSELY. PATIENT FOR DEBRIDEMENT TODAY REPORTED AT 4 pm. WILL FOLLOW PATIENT WHILE IN THE HOSPITAL.
[2017-04-24 21:06] LABS: ABG ALLEN TEST A; ARTERIAL BLOOD HGB O2 SAT 85.9 % (95.0-98.0); CARBOXYHEMOGLOBIN 2.4 % (0.5-1.5); DRAW SITE RRA; HHB 10.1 % (0.0-5.0); METHEMOGLOBIN 1.6 % (0.0-3.0)
--- NOTE | 2017-04-24 23:05 | CP.PCM.PN ---
Subjective - Date & Time of Evaluation Date of Evaluation: 04/24/17 Time of Evaluation: 09:40 - Subjective Subjective: PATIENT IS FOR OR TOMMOROW MORNING.PT IS ON ANTIBIOTIC, AFEBRILE, HAS COUGH AND CONGESTION Objective - Vital Signs/Intake and Output Vital Signs (last 24 hours): Temp Pulse Resp BP Pulse Ox 98.9 F 91 H 20 136/73 98 04/24/17 16:00 04/24/17 16:00 04/24/17 16:00 04/24/17 16:00 04/24/17 16:00 Intake and Output: 04/24/17 04/25/17 18:59 06:59 Intake Total 240 550 Balance 240 550 - Medications Medications: Current Medications Albuterol/Ipratropium (Duoneb 3 Mg/0.5 Mg (3 Ml) Ud) 3 ml INH RQ4 [facility] Last Admin: 04/24/17 20:12 Dose: 3 ml Amlodipine Besylate (Norvasc) 10 mg PO DAILY [facility] Last Admin: 04/24/17 09:56 Dose: 10 mg Carvedilol (Coreg) 3.125 mg PO BID [facility] Last Admin: 04/24/17 17:40 Dose: 3.125 mg Enoxaparin Sodium (Lovenox) 40 mg SC DAILY [facility] Last Admin: 04/22/17 09:05 Dose: Not Given Gentamicin Sulfate 100 mg/ (Sodium Chloride) 102.5 mls @ 100 mls/hr IVPB Q24H [facility] Stop: 04/28/17 19:01 Last Admin: 04/24/17 18:00 Dose: 100 mls/hr Piperacillin Sod/Tazobactam Sod (Zosyn 3.375 Gm Iv Premix) 3.375 gm in 50 mls @ 100 mls/hr IVPB Q8 [facility] Last Admin: 04/24/17 21:23 Dose: 100 mls/hr Insulin Aspart (Novolog) 0 unit SC ACHS [facility] PRN Reason: Protocol Last Admin: 04/24/17 22:06 Dose: Not Given Insulin Aspart (Novolog Mix 70/30 (70/30 Units/Ml)) 36 units SC QPM [facility] Last Admin: 04/24/17 17:41 Dose: 36 units Insulin Aspart (Novolog Mix 70/30 (70/30 Units/Ml)) 40 units SC QAM [facility] Last Admin: 04/24/17 09:55 Dose: 40 units Lactulose (Enulose) 20 gm PO HS [facility] Last Admin: 04/23/17 21:31 Dose: 20 gm Losartan Potassium (Cozaar) 50 mg PO DAILY [facility] Last Admin: 04/24/17 09:49 Dose: 50 mg Methadone HCl (Methadose) 120 mg PO DAILY [facility] Last Admin: 04/24/17 09:48 Dose: 120 mg Methylprednisolone (Solu-Medrol) 40 mg IVP Q8H [facility] Last Admin: 04/24/17 17:42 Dose: 40 mg Mupirocin (Bactroban Ointment) 0 gm TOP BID [facility] Last Admin: 04/24/17 17:54 Dose: 1 applic Naproxen (Anaprox) 275 mg PO 0000,1200 [facility] Last Admin: 04/24/17 12:55 Dose: Not Given Rosuvastatin Calcium (Crestor) 10 mg PO HS [facility] Last Admin: 04/24/17 21:22 Dose: 10 mg Tiotropium [place] (Spiriva) 18 mcg INH RQ24 [facility] - Labs Labs: 04/23/17 06:18 04/23/17 06:18 PT 10.1 SECONDS (9.7-12.2) 04/20/17 19:43 INR 0.9 04/20/17 19:43 APTT 27 SECONDS (21-34) 04/20/17 19:43 - Constitutional Appears: No Acute Distress - Head Exam Head Exam: ATRAUMATIC, NORMAL INSPECTION, NORMOCEPHALIC - Eye Exam Eye Exam: EOMI, Normal appearance, PERRL Pupil Exam: NORMAL ACCOMODATION, PERRL - Respiratory Exam Respiratory Exam: Decreased Breath Sounds, Rales, Rhonchi - Cardiovascular Exam Cardiovascular Exam: REGULAR RHYTHM, +S1, +S2. absent: Murmur - GI/Abdominal Exam GI & Abdominal Exam: Soft, Normal Bowel Sounds. absent: Tenderness Assessment and Plan (1) Diabetic ulcer of lower extremity Assessment & Plan: OR TOMMOROW MORNING Status: Acute (2) HTN (hypertension) Status: Acute
[2017-04-25] MEDS: Naproxen 275 mg Tab PO SCH ×3 (00:20→23:43)
[2017-04-25] MEDS: Albuterol-Ipratrop 3 mg / 0.5 (3 ml) UD INH SCH ×6 (00:20→20:12)
[2017-04-25] MEDS: MethylPREDNISolone 40 mg Vial IVP SCH ×4 (00:20→23:45)
[2017-04-25] MEDS: Piperacill/Tazo 3.375gm in Dex 3.375 GM/50 ML BAG IVPB SCH ×3 (05:45→21:58)
[2017-04-25 06:51] LABS: EOS % 0.3 % (0.0-4.0); MEAN CELL VOLUME 72.8 fL (81.0-99.0); MEAN CORPUSCULAR HEMOGLOBIN 21.9 pg (27.0-31.0); MONO # 0.3 K/uL (0.0-0.8); MONO % 2.2 % (0.0-10.0); RED CELL DISTRIBUTION WIDTH 17.8 % (11.5-14.5)
--- NOTE | 2017-04-25 06:52 | CP.PCM.PN ---
Subjective - Date & Time of Evaluation Date of Evaluation: 04/25/17 Time of Evaluation: 06:49 - Subjective Subjective: 56 year old female was seen resting comfortably at bedside for follow up on left lower extremity chronic open wound. Dressing clean,dry, intact. Patient to OR this morning at 7:30 am. Patient states that she has not had anything to eat or drink since before midnight last night. Patient denies any n/v/f/c/sob/cp Objective - Vital Signs/Intake and Output Vital Signs (last 24 hours): Temp Pulse Resp BP Pulse Ox 97.5 F L 80 20 117/78 97 04/25/17 00:00 04/25/17 00:00 04/25/17 00:00 04/25/17 00:00 04/25/17 00:00 Intake and Output: 04/24/17 04/25/17 18:59 06:59 Intake Total 240 800 Balance 240 800 - Medications Medications: Current Medications Albuterol/Ipratropium (Duoneb 3 Mg/0.5 Mg (3 Ml) Ud) 3 ml INH RQ4 [facility] Last Admin: 04/25/17 04:11 Dose: Not Given Amlodipine Besylate (Norvasc) 10 mg PO DAILY [facility] Last Admin: 04/24/17 09:56 Dose: 10 mg Carvedilol (Coreg) 3.125 mg PO BID [facility] Last Admin: 04/24/17 17:40 Dose: 3.125 mg Enoxaparin Sodium (Lovenox) 40 mg SC DAILY [facility] Last Admin: 04/22/17 09:05 Dose: Not Given Gentamicin Sulfate 100 mg/ (Sodium Chloride) 102.5 mls @ 100 mls/hr IVPB Q24H [facility] Stop: 04/28/17 19:01 Last Admin: 04/24/17 18:00 Dose: 100 mls/hr Piperacillin Sod/Tazobactam Sod (Zosyn 3.375 Gm Iv Premix) 3.375 gm in 50 mls @ 100 mls/hr IVPB Q8 [facility] Last Admin: 04/25/17 05:45 Dose: 100 mls/hr Insulin Aspart (Novolog) 0 unit SC ACHS [facility] PRN Reason: Protocol Last Admin: 04/24/17 22:06 Dose: Not Given Insulin Aspart (Novolog Mix 70/30 (70/30 Units/Ml)) 36 units SC QPM [facility] Last Admin: 04/24/17 17:41 Dose: 36 units Insulin Aspart (Novolog Mix 70/30 (70/30 Units/Ml)) 40 units SC QAM [facility] Last Admin: 04/24/17 09:55 Dose: 40 units Lactulose (Enulose) 20 gm PO HS [facility] Last Admin: 04/23/17 21:31 Dose: 20 gm Losartan Potassium (Cozaar) 50 mg PO DAILY [facility] Last Admin: 04/24/17 09:49 Dose: 50 mg Methadone HCl (Methadose) 120 mg PO DAILY [facility] Last Admin: 04/24/17 09:48 Dose: 120 mg Methylprednisolone (Solu-Medrol) 40 mg IVP Q8H [facility] Last Admin: 04/25/17 00:20 Dose: 40 mg Mupirocin (Bactroban Ointment) 0 gm TOP BID [facility] Last Admin: 04/24/17 17:54 Dose: 1 applic Naproxen (Anaprox) 275 mg PO 0000,1200 [facility] Last Admin: 04/25/17 00:20 Dose: 275 mg Rosuvastatin Calcium (Crestor) 10 mg PO [facility] Last Admin: 04/24/17 21:22 Dose: 10 mg Tiotropium [place] (Spiriva) 18 mcg INH RQ24 [facility] - Labs Labs: 04/23/17 06:18 04/23/17 06:18 PT 10.1 SECONDS (9.7-12.2) 04/20/17 19:43 INR 0.9 04/20/17 19:43 APTT 27 SECONDS (21-34) 04/20/17 19:43 - Constitutional Appears: Well, Non-toxic, No Acute Distress - Extremities Exam Additional comments: Left lower extremity dressing clean,dry, intact. CFT is less than 3 seconds DP and PT pulses palpable. - Neurological Exam Neurological Exam: Alert, Awake, Oriented x3 - Psychiatric Exam Psychiatric exam: Normal Affect, Normal Mood Assessment and Plan - Assessment and Plan (Free Text) Assessment: 56 year old female with chronic non-healing ulceration of left leg Plan: Patient seen and evaluated at bedside All the questions and concerns were addressed Discussed with attending Dr. Huynh Labs and vitals were reviewed Podiatry plan: Patient to OR on today at 7:30 am Left lower extremity wound debridement with graft application Medical clearance has obtained and in the chart Consent signs and in the chart NPO status is confirmed Anticoagulation has held Patient can be discharge home after podiatry procedure Patient will f/u with Dr. Huynh upon D/C. Podiatry will continue to follow while patient remains in house.
[2017-04-25 06:59] LABS: CHLORIDE 96 mmol/L (98-107)
[2017-04-25 07:00] LABS: POTASSIUM 5.7 mmol/L (3.6-5.2); SODIUM 133 mmol/L (132-148)
[2017-04-25 07:02] LABS: GFR AFRICAN-AMERICAN > 60
[2017-04-25 07:03] LABS: BLOOD UREA NITROGEN 37 mg/dL (7-17); CALCIUM 7.8 mg/dl (8.6-10.4); CARBON DIOXIDE 31 mmol/L (22-30); GLUCOSE,RANDOM 217 mg/dL (65-105)
[2017-04-25] MEDS ORDERED: Bacitracin Ointment 30 GM TUBE ONE (07:15)
[2017-04-25] MEDS ORDERED: ceFAZolin IV 1 gm in Dextrose 1 GM/50 ML BAG IVPB ONE (07:15)
[2017-04-25] MEDS ORDERED: Lidocaine 1% Inj (20ml) ONE (07:15)
[2017-04-25] MEDS ORDERED: Lidocaine 2% Inj (20ml) ONE (07:15)
[2017-04-25] MEDS ORDERED: Bupivacaine HCl 0.5% PF (10 ml) Inj ONE (07:15)
[2017-04-25 07:23] LABS: BASO % 0.1 % (0.0-2.0); HEMATOCRIT 35.6 % (34.0-47.0); LYMPH # 0.5 K/uL (1.0-4.3); LYMPH % 3.1 % (20.0-40.0); MEAN CORPUSCULAR HGB CONC 30.1 g/dL (33.0-37.0); MEAN PLATELET VOLUME 9.6 fL (7.2-11.7); PLATELET COUNT 171 K/uL (130-400); WHITE BLOOD COUNT 14.7 K/uL (4.8-10.8)
[2017-04-25 07:58] LABS: ERYTHROCYTE SEDIMENTATION RATE 46 mm/hr (0-20)
[2017-04-25 08:33] LABS: NEUTROPHIL 92 % (50-75); TOTAL CELLS COUNTED 100
[2017-04-25] MEDS: Methadone 40 mg Tab PO SCH (09:58)
[2017-04-25] MEDS: (Novolog) Insulin Aspart, Recombinant 100 u/ml 10 ml vial SC SCH ×4 (09:59→22:02)
[2017-04-25] MEDS: Enoxaparin 40 mg Syringe SC SCH (10:00)
[2017-04-25] MEDS: (Novolog Mix 70/30) Insulin Aspart/Insulin Aspar 100 units/ml SC SCH ×2 (10:03→17:17)
[2017-04-25] MEDS ORDERED: Sod Polystyrene Sulf 15 gm/60 ml Oral Susp PO ONE (10:27)
[2017-04-25] MEDS: Tiotropium 18 mcg Cap For Inhalation INH SCH (11:47)
--- NOTE | 2017-04-25 14:11 | CP.PCM.PN ---
Subjective - Date & Time of Evaluation Date of Evaluation: 04/25/17 Time of Evaluation: 14:11 - Subjective Subjective: afebrile Clinically same OR CANCELED SECONDARY TO HYPERKALEMIA oN KAYEXALATE. Objective - Vital Signs/Intake and Output Vital Signs (last 24 hours): Temp Pulse Resp BP Pulse Ox 97.6 F 76 20 130/72 95 04/25/17 06:45 04/25/17 06:45 04/25/17 06:45 04/25/17 06:45 04/25/17 06:45 Intake and Output: 04/25/17 04/25/17 06:59 18:59 Intake Total 800 Balance 800 - Medications Medications: Current Medications Albuterol/Ipratropium (Duoneb 3 Mg/0.5 Mg (3 Ml) Ud) 3 ml INH RQ4 [facility] Last Admin: 04/25/17 11:47 Dose: Not Given Amlodipine Besylate (Norvasc) 10 mg PO DAILY [facility] Last Admin: 04/25/17 09:59 Dose: 10 mg Carvedilol (Coreg) 3.125 mg PO BID [facility] Last Admin: 04/25/17 09:58 Dose: 3.125 mg Enoxaparin Sodium (Lovenox) 40 mg SC DAILY [facility] Last Admin: 04/25/17 10:00 Dose: 40 mg Gentamicin Sulfate 100 mg/ (Sodium Chloride) 102.5 mls @ 100 mls/hr IVPB Q24H [facility] Stop: 04/28/17 19:01 Last Admin: 04/24/17 18:00 Dose: 100 mls/hr Piperacillin Sod/Tazobactam Sod (Zosyn 3.375 Gm Iv Premix) 3.375 gm in 50 mls @ 100 mls/hr IVPB Q8 [facility] Last Admin: 04/25/17 05:45 Dose: 100 mls/hr Insulin Aspart (Novolog) 0 unit SC ACHS [facility] PRN Reason: Protocol Last Admin: 04/25/17 12:07 Dose: 4 unit Insulin Aspart (Novolog Mix 70/30 (70/30 Units/Ml)) 36 units SC QPM [facility] Last Admin: 04/24/17 17:41 Dose: 36 units Insulin Aspart (Novolog Mix 70/30 (70/30 Units/Ml)) 40 units SC QAM [facility] Last Admin: 04/25/17 10:03 Dose: 40 units Lactulose (Enulose) 20 gm PO [facility] Last Admin: 04/23/17 21:31 Dose: 20 gm Losartan Potassium (Cozaar) 50 mg PO DAILY [facility] Last Admin: 04/25/17 09:58 Dose: 50 mg Methadone HCl (Methadose) 120 mg PO DAILY [facility] Last Admin: 04/25/17 09:58 Dose: 120 mg Methylprednisolone (Solu-Medrol) 40 mg IVP Q8H [facility] Last Admin: 04/25/17 09:59 Dose: 40 mg Mupirocin (Bactroban Ointment) 0 gm TOP BID [facility] Last Admin: 04/25/17 10:04 Dose: 1 applic Naproxen (Anaprox) 275 mg PO 0000,1200 [facility] Last Admin: 04/25/17 14:07 Dose: 275 mg Rosuvastatin Calcium (Crestor) 10 mg PO [facility] Last Admin: 04/24/17 21:22 Dose: 10 mg Tiotropium [place] (Spiriva) 18 mcg INH RQ24 [facility] Last Admin: 04/25/17 11:47 Dose: Not Given - Labs Labs: 04/25/17 06:47 04/25/17 06:47 PT 10.1 SECONDS (9.7-12.2) 04/20/17 19:43 INR 0.9 04/20/17 19:43 APTT 27 SECONDS (21-34) 04/20/17 19:43 - Constitutional Appears: No Acute Distress - Head Exam Head Exam: NORMAL INSPECTION - Eye Exam Eye Exam: EOMI, PERRL - ENT Exam ENT Exam: Normal Oropharynx - Neck Exam Neck Exam: Normal Inspection - Respiratory Exam Respiratory Exam: Clear to Ausculation Bilateral - Cardiovascular Exam Cardiovascular Exam: REGULAR RHYTHM, +S1, +S2 - GI/Abdominal Exam GI & Abdominal Exam: Soft, Normal Bowel Sounds - Extremities Exam Extremities Exam: Pedal Edema, Tenderness Additional comments: LEFT LOWER LEG DRESSING IN PLACE. POSITIVE EDEMA AND CELLULITIS EXTENDING HALF WAY UP THE LEG. TENDER TO TOUCH AND WARM - Neurological Exam Neurological Exam: Awake, Oriented x3 - Psychiatric Exam Psychiatric exam: Normal Mood - Skin Skin Exam: Normal Color, Warm Assessment and Plan (1) Diabetic ulcer of lower extremity Status: Acute (2) Cellulitis Status: Acute (3) HTN (hypertension) Status: Acute (4) Uncontrolled diabetes mellitus Status: Acute - Assessment and Plan (Free Text) Plan: continue iv ZOSYN 3.375 EVERY 8 HOURLY 04/23/17 on iv GENTAMICIN 160 MG LOADING DOSE, 04/23 FOLLOW-UP 100 MG ONCE A DAY DAILY X 4 DAYS. MONITOR RENAL FUNCTIONS CLOSELY. PATIENT FOR DEBRIDEMENT in AM [facility]WC .
--- NOTE | 2017-04-25 23:19 | CP.PCM.PN ---
Subjective - Date & Time of Evaluation Date of Evaluation: 04/25/17 Time of Evaluation: 10:10 - Subjective Subjective: pt seen & evluated , pt developed hyperkalemia, pt OR is on hold untill tommorow ws given kayxelate Objective - Vital Signs/Intake and Output Vital Signs (last 24 hours): Temp Pulse Resp BP Pulse Ox 98.0 F 84 20 125/74 95 04/25/17 16:00 04/25/17 16:00 04/25/17 16:00 04/25/17 16:00 04/25/17 16:00 Intake and Output: 04/25/17 04/26/17 18:59 06:59 Intake Total 250 550 Balance 250 550 - Medications Medications: Current Medications Albuterol/Ipratropium (Duoneb 3 Mg/0.5 Mg (3 Ml) Ud) 3 ml INH RQ4 [facility] Last Admin: 04/25/17 20:12 Dose: 3 ml Amlodipine Besylate (Norvasc) 10 mg PO DAILY [facility] Last Admin: 04/25/17 09:59 Dose: 10 mg Carvedilol (Coreg) 3.125 mg PO BID [facility] Last Admin: 04/25/17 17:16 Dose: 3.125 mg Enoxaparin Sodium (Lovenox) 40 mg SC DAILY [facility] Last Admin: 04/25/17 10:00 Dose: 40 mg Gentamicin Sulfate 100 mg/ (Sodium Chloride) 102.5 mls @ 100 mls/hr IVPB Q24H [facility] Stop: 04/28/17 19:01 Last Admin: 04/25/17 18:39 Dose: 100 mls/hr Piperacillin Sod/Tazobactam Sod (Zosyn 3.375 Gm Iv Premix) 3.375 gm in 50 mls @ 100 mls/hr IVPB Q8 [facility] Last Admin: 04/25/17 21:58 Dose: 100 mls/hr Insulin Aspart (Novolog) 0 unit SC ACHS [facility] PRN Reason: Protocol Last Admin: 04/25/17 22:02 Dose: Not Given Insulin Aspart (Novolog Mix 70/30 (70/30 Units/Ml)) 36 units SC QPM [facility] Last Admin: 04/25/17 17:17 Dose: 36 units Insulin Aspart (Novolog Mix 70/30 (70/30 Units/Ml)) 40 units SC QAM [facility] Last Admin: 04/25/17 10:03 Dose: 40 units Lactulose (Enulose) 20 gm PO HS [facility] Last Admin: 04/25/17 22:02 Dose: Not Given Losartan Potassium (Cozaar) 50 mg PO DAILY [facility] Last Admin: 04/25/17 09:58 Dose: 50 mg Methadone HCl (Methadose) 120 mg PO DAILY [facility] Last Admin: 04/25/17 09:58 Dose: 120 mg Methylprednisolone (Solu-Medrol) 40 mg IVP Q8H [facility] Last Admin: 04/25/17 17:17 Dose: 40 mg Mupirocin (Bactroban Ointment) 0 gm TOP BID [facility] Last Admin: 04/25/17 18:30 Dose: 1 applic Naproxen (Anaprox) 275 mg PO 0000,1200 [facility] Last Admin: 04/25/17 14:07 Dose: 275 mg Rosuvastatin Calcium (Crestor) 10 mg PO HS [facility] Last Admin: 04/25/17 21:58 Dose: 10 mg Tiotropium [place] (Spiriva) 18 mcg INH RQ24 [facility] Last Admin: 04/25/17 11:47 Dose: Not Given - Labs Labs: 04/25/17 06:47 04/25/17 06:47 PT 10.1 SECONDS (9.7-12.2) 04/20/17 19:43 INR 0.9 04/20/17 19:43 APTT 27 SECONDS (21-34) 04/20/17 19:43 - Constitutional Appears: No Acute Distress - Head Exam Head Exam: ATRAUMATIC, NORMAL INSPECTION, NORMOCEPHALIC - Eye Exam Eye Exam: EOMI, Normal appearance, PERRL Pupil Exam: NORMAL ACCOMODATION, PERRL - ENT Exam ENT Exam: Mucous Membranes Moist, Normal Exam - Respiratory Exam Respiratory Exam: Clear to Ausculation Bilateral, NORMAL BREATHING PATTERN - Cardiovascular Exam Cardiovascular Exam: REGULAR RHYTHM, +S1, +S2. absent: Murmur Assessment and Plan (1) Diabetic ulcer of lower extremity Status: Acute (2) HTN (hypertension) Status: Acute
[2017-04-26] MEDS: Albuterol-Ipratrop 3 mg / 0.5 (3 ml) UD INH SCH ×6 (00:54→21:19)
[2017-04-26 04:19] LABS: CHLORIDE 95 mmol/L (98-107); POTASSIUM 4.3 mmol/L (3.6-5.2); SODIUM 136 mmol/L (132-148)
[2017-04-26 04:21] LABS: GFR AFRICAN-AMERICAN > 60
[2017-04-26 04:22] LABS: BLOOD UREA NITROGEN 29 mg/dL (7-17); CALCIUM 7.6 mg/dl (8.6-10.4); CARBON DIOXIDE 35 mmol/L (22-30); GLUCOSE,RANDOM 296 mg/dL (65-105)
[2017-04-26] MEDS: Piperacill/Tazo 3.375gm in Dex 3.375 GM/50 ML BAG IVPB SCH ×3 (05:41→21:36)
--- NOTE | 2017-04-26 07:06 | CP.PCM.PN ---
Subjective - Date & Time of Evaluation Date of Evaluation: 04/26/17 Time of Evaluation: 07:03 - Subjective Subjective: 56 y/o female patient seen and evaluated at bedside for follow up on left lower extremity chronic open wound. Patient was resting comfortably in bed and in AAOx3. Patient denied any pedal pain at this time. Dressing was intact, clean and dry. Patient to OR today at 8am. Patient states that she has not eaten/ drank since last night. Patient denies any symptoms of N/V/F/SOB/Chest pain. Objective - Vital Signs/Intake and Output Vital Signs (last 24 hours): Temp Pulse Resp BP Pulse Ox 97.3 F L 86 20 137/84 96 04/26/17 00:06 04/26/17 00:55 04/26/17 00:06 04/26/17 00:06 04/26/17 00:06 Intake and Output: 04/26/17 04/26/17 06:59 18:59 Intake Total 600 Balance 600 - Medications Medications: Current Medications Albuterol/Ipratropium (Duoneb 3 Mg/0.5 Mg (3 Ml) Ud) 3 ml INH RQ4 [facility] Last Admin: 04/26/17 03:57 Dose: Not Given Amlodipine Besylate (Norvasc) 10 mg PO DAILY [facility] Last Admin: 04/25/17 09:59 Dose: 10 mg Carvedilol (Coreg) 3.125 mg PO BID [facility] Last Admin: 04/25/17 17:16 Dose: 3.125 mg Enoxaparin Sodium (Lovenox) 40 mg SC DAILY [facility] Last Admin: 04/25/17 10:00 Dose: 40 mg Gentamicin Sulfate 100 mg/ (Sodium Chloride) 102.5 mls @ 100 mls/hr IVPB Q24H [facility] Stop: 04/28/17 19:01 Last Admin: 04/25/17 18:39 Dose: 100 mls/hr Piperacillin Sod/Tazobactam Sod (Zosyn 3.375 Gm Iv Premix) 3.375 gm in 50 mls @ 100 mls/hr IVPB Q8 [facility] Last Admin: 04/26/17 05:41 Dose: 100 mls/hr Insulin Aspart (Novolog) 0 unit SC ACHS [facility] PRN Reason: Protocol Last Admin: 04/25/17 22:02 Dose: Not Given Insulin Aspart (Novolog Mix 70/30 (70/30 Units/Ml)) 36 units SC QPM [facility] Last Admin: 04/25/17 17:17 Dose: 36 units Insulin Aspart (Novolog Mix 70/30 (70/30 Units/Ml)) 40 units SC QAM [facility] Last Admin: 04/25/17 10:03 Dose: 40 units Lactulose (Enulose) 20 gm PO HS [facility] Last Admin: 04/25/17 22:02 Dose: Not Given Losartan Potassium (Cozaar) 50 mg PO DAILY [facility] Last Admin: 04/25/17 09:58 Dose: 50 mg Methadone HCl (Methadose) 120 mg PO DAILY [facility] Last Admin: 04/25/17 09:58 Dose: 120 mg Methylprednisolone (Solu-Medrol) 40 mg IVP Q8H [facility] Last Admin: 04/25/17 23:45 Dose: 40 mg Mupirocin (Bactroban Ointment) 0 gm TOP BID [facility] Last Admin: 04/25/17 18:30 Dose: 1 applic Naproxen (Anaprox) 275 mg PO 0000,1200 [facility] Last Admin: 04/25/17 23:43 Dose: 275 mg Rosuvastatin Calcium (Crestor) 10 mg PO HS [facility] Last Admin: 04/25/17 21:58 Dose: 10 mg Tiotropium [place] (Spiriva) 18 mcg INH RQ24 [facility] Last Admin: 04/25/17 11:47 Dose: Not Given - Labs Labs: 04/25/17 06:47 04/26/17 04:13 PT 10.1 SECONDS (9.7-12.2) 04/20/17 19:43 INR 0.9 04/20/17 19:43 APTT 27 SECONDS (21-34) 04/20/17 19:43 - Constitutional Appears: Well, Non-toxic, No Acute Distress - Back Exam Additional comments: Dressing intact, clean and dry. - Neurological Exam Neurological Exam: Alert, Awake - Psychiatric Exam Psychiatric exam: Normal Affect, Normal Mood Assessment and Plan - Assessment and Plan (Free Text) Assessment: 56 yo female patient with chronic non-healing ulceration of left leg Plan: Patient seen and evaluated at bedside All the questions and concerns were addressed Discussed with attending Dr. Huynh Labs and vitals were reviewed Podiatry plan: Patient to OR on today at 8am Left lower extremity wound debridement with graft application Medical clearance has obtained and in the chart Consent signs and in the chart NPO status is confirmed Anticoagulation has held Patient can be discharge home after podiatry procedure Patient will f/u with Dr. Huynh upon D/C. Podiatry will continue to follow while patient remains in house.
[2017-04-26] MEDS: (Novolog) Insulin Aspart, Recombinant 100 u/ml 10 ml vial SC SCH ×4 (07:40→21:40)
[2017-04-26] MEDS: MethylPREDNISolone 40 mg Vial IVP SCH ×2 (07:55→17:36)
[2017-04-26] MEDS: Tiotropium 18 mcg Cap For Inhalation INH SCH (08:31)
[2017-04-26] MEDS ORDERED: Lidocaine 2% Inj (20ml) ONE (08:44)
[2017-04-26] MEDS ORDERED: Bupivacaine HCl 0.5% PF (10 ml) Inj ONE ×2 (08:44)
[2017-04-26] MEDS ORDERED: Midazolam 2 MG/2 ML VIAL ONE (08:57)
[2017-04-26] MEDS ORDERED: Sodium Chloride 0.9% 450 ML IV ONE (09:51)
[2017-04-26] MEDS ORDERED: HYDROmorphone 0.5 mg/0.5 ml ISec IVP PRN (09:53)
--- NOTE | 2017-04-26 09:56 | PCM.SURG1 ---
Surgeon's Initial Post Op Note - Surgeon's Notes Surgeon: Dr. Huynh Crematory Attendant: Dr. Sang Alex, Dr. Kenny Type of Anesthesia: IV Sedation, Local Anesthesia Administered By: Dr. Mcdowell Pre-Operative Diagnosis: Left leg non-healing ulceration Operative Findings: Materials: Alloderm graft sheet, 4-0 prolene Post-Operative Diagnosis: same Operation Performed: Left leg wound debridement with Misonix handpiece and graft application Specimen/Specimens Removed: none Estimated Blood Loss: EBL {In ML}: 3 Blood Products Given: N/A Drains Used: No Drains Post-Op Condition: Good Date of Surgery/Procedure: 04/26/17 Time of Surgery/Procedure: 08:55
[2017-04-26] MEDS ORDERED: Oxycodone/Acetaminophen 5/325 mg Tab PO PRN ×2 (09:58→12:00)
[2017-04-26] MEDS ORDERED: Lactated Ringer's 1,000 ML IV SCH (10:00)
[2017-04-26] MEDS: Methadone 40 mg Tab PO SCH (10:54)
[2017-04-26] MEDS: (Novolog Mix 70/30) Insulin Aspart/Insulin Aspar 100 units/ml SC SCH ×2 (10:54→17:35)
--- NOTE | 2017-04-26 13:45 | CP.PCM.PN ---
Subjective - Date & Time of Evaluation Date of Evaluation: 04/26/17 Time of Evaluation: 13:44 - Subjective Subjective: AFEBRILE SEEN POST-OPERATIVELY S/P DEBRIDEMENT AND GRAFT Objective - Vital Signs/Intake and Output Vital Signs (last 24 hours): Temp Pulse Resp BP Pulse Ox 97.5 F L 66 14 121/88 99 04/26/17 10:30 04/26/17 10:30 04/26/17 10:30 04/26/17 10:30 04/26/17 10:30 Intake and Output: 04/26/17 04/26/17 06:59 18:59 Intake Total 600 100 Balance 600 100 - Medications Medications: Current Medications Acetaminophen (Tylenol 325mg Tab) 650 mg PO Q6 PRN PRN Reason: Pain, Mild (1-3) Albuterol/Ipratropium (Duoneb 3 Mg/0.5 Mg (3 Ml) Ud) 3 ml INH RQ4 [facility] Last Admin: 04/26/17 12:29 Dose: 3 ml Amlodipine Besylate (Norvasc) 10 mg PO DAILY [facility] Last Admin: 04/26/17 10:47 Dose: Not Given Carvedilol (Coreg) 3.125 mg PO BID [facility] Last Admin: 04/26/17 10:46 Dose: Not Given Enoxaparin Sodium (Lovenox) 40 mg SC DAILY [facility] Last Admin: 04/25/17 10:00 Dose: 40 mg Gentamicin Sulfate 100 mg/ (Sodium Chloride) 102.5 mls @ 100 mls/hr IVPB Q24H [facility] Stop: 04/28/17 19:01 Last Admin: 04/25/17 18:39 Dose: 100 mls/hr Piperacillin Sod/Tazobactam Sod (Zosyn 3.375 Gm Iv Premix) 3.375 gm in 50 mls @ 100 mls/hr IVPB Q8 [facility] Last Admin: 04/26/17 05:41 Dose: 100 mls/hr Lactated Ringer's (Lactated Ringer's) 1,000 mls @ 100 mls/hr IV .Q10H [facility] Last Admin: 04/26/17 11:16 Dose: 100 mls/hr Insulin Aspart (Novolog) 0 unit SC ACHS [facility] PRN Reason: Protocol Last Admin: 04/26/17 11:27 Dose: 3 unit Insulin Aspart (Novolog Mix 70/30 (70/30 Units/Ml)) 36 units SC QPM [facility] Last Admin: 04/25/17 17:17 Dose: 36 units Insulin Aspart (Novolog Mix 70/30 (70/30 Units/Ml)) 40 units SC QAM [facility] Last Admin: 04/26/17 10:54 Dose: 40 units Lactulose (Enulose) 20 gm PO HS [facility] Last Admin: 04/25/17 22:02 Dose: Not Given Losartan Potassium (Cozaar) 50 mg PO DAILY [facility] Last Admin: 04/26/17 10:54 Dose: 50 mg Methadone HCl (Methadose) 120 mg PO DAILY [facility] Last Admin: 04/26/17 10:54 Dose: 120 mg Methylprednisolone (Solu-Medrol) 40 mg IVP Q8H [facility] Last Admin: 04/26/17 07:55 Dose: 40 mg Mupirocin (Bactroban Ointment) 0 gm TOP BID [facility] Last Admin: 04/26/17 10:45 Dose: Not Given Naproxen (Anaprox) 275 mg PO 0000,1200 [facility] Last Admin: 04/25/17 23:43 Dose: 275 mg Oxycodone/Acetaminophen (Percocet 5/325 Mg Tab) 1 tab PO Q4H PRN PRN Reason: Pain, moderate (4-7) Stop: 04/29/17 12:01 Oxycodone/Acetaminophen (Percocet 5/325 Mg Tab) 2 tab PO Q4H PRN PRN Reason: Pain, severe (8-10) Stop: 04/29/17 09:59 Rosuvastatin Calcium (Crestor) 10 mg PO HS [facility] Last Admin: 04/25/17 21:58 Dose: 10 mg Tiotropium [place] (Spiriva) 18 mcg INH RQ24 [facility] Last Admin: 04/26/17 08:31 Dose: 18 mcg - Labs Labs: 04/25/17 06:47 04/26/17 04:13 PT 10.1 SECONDS (9.7-12.2) 04/20/17 19:43 INR 0.9 04/20/17 19:43 APTT 27 SECONDS (21-34) 04/20/17 19:43 - Constitutional Appears: No Acute Distress - Head Exam Head Exam: NORMAL INSPECTION - Eye Exam Eye Exam: EOMI, PERRL - ENT Exam ENT Exam: Normal Oropharynx - Neck Exam Neck Exam: Normal Inspection - Respiratory Exam Respiratory Exam: Clear to Ausculation Bilateral - Cardiovascular Exam Cardiovascular Exam: REGULAR RHYTHM, +S1, +S2 - GI/Abdominal Exam GI & Abdominal Exam: Soft, Normal Bowel Sounds - Extremities Exam Extremities Exam: Pedal Edema (LT LEG POST -OPTIVE.). absent: Calf Tenderness - Neurological Exam Neurological Exam: Awake, CN II-XII Intact, Oriented x3, Reflexes Normal - Psychiatric Exam Psychiatric exam: Normal Mood - Skin Skin Exam: Normal Color, Warm Assessment and Plan (1) Diabetic ulcer of lower extremity Status: Acute (2) Cellulitis Status: Acute (3) HTN (hypertension) Status: Acute (4) Uncontrolled diabetes mellitus Status: Acute - Assessment and Plan (Free Text) Plan: continue iv ZOSYN 3.375 EVERY 8 HOURLY 04/23/17 on iv GENTAMICIN 160 MG LOADING DOSE, 04/23 FOLLOW-UP 100 MG ONCE A DAY DAILY X 4 DAYS.-LAST DOSE TODAY 04/27 MONITOR RENAL FUNCTIONS CLOSELY. LWC PER PODIATRY.
[2017-04-26] MEDS: Naproxen 275 mg Tab PO SCH (14:22)
[2017-04-26 17:02] VITALS: RESP 20
--- NOTE | 2017-04-26 23:42 | CP.PCM.PN ---
Subjective - Date & Time of Evaluation Date of Evaluation: 04/26/17 Time of Evaluation: 09:50 - Subjective Subjective: Pt seen and evaluated s/p debribement and graft, pt is feeling better, NAD, on BIPAP Objective - Vital Signs/Intake and Output Vital Signs (last 24 hours): Temp Pulse Resp BP Pulse Ox 98.2 F 80 20 112/69 95 04/26/17 16:00 04/26/17 16:00 04/26/17 16:00 04/26/17 16:00 04/26/17 16:00 Intake and Output: 04/26/17 04/27/17 18:59 06:59 Intake Total 1000 300 Balance 1000 300 - Medications Medications: Current Medications Acetaminophen (Tylenol 325mg Tab) 650 mg PO Q6 PRN PRN Reason: Pain, Mild (1-3) Albuterol/Ipratropium (Duoneb 3 Mg/0.5 Mg (3 Ml) Ud) 3 ml INH RQ4 [facility] Last Admin: 04/26/17 21:19 Dose: 3 ml Amlodipine Besylate (Norvasc) 10 mg PO DAILY [facility] Last Admin: 04/26/17 10:47 Dose: Not Given Carvedilol (Coreg) 3.125 mg PO BID [facility] Last Admin: 04/26/17 17:35 Dose: 3.125 mg Enoxaparin Sodium (Lovenox) 40 mg SC DAILY [facility] Last Admin: 04/25/17 10:00 Dose: 40 mg Gentamicin Sulfate 100 mg/ (Sodium Chloride) 102.5 mls @ 100 mls/hr IVPB Q24H [facility] Stop: 04/28/17 19:01 Last Admin: 04/26/17 18:19 Dose: 100 mls/hr Piperacillin Sod/Tazobactam Sod (Zosyn 3.375 Gm Iv Premix) 3.375 gm in 50 mls @ 100 mls/hr IVPB Q8 [facility] Last Admin: 04/26/17 21:36 Dose: 100 mls/hr Insulin Aspart (Novolog) 0 unit SC ACHS [facility] PRN Reason: Protocol Last Admin: 04/26/17 21:40 Dose: Not Given Insulin Aspart (Novolog Mix 70/30 (70/30 Units/Ml)) 36 units SC QPM [facility] Last Admin: 04/26/17 17:35 Dose: 36 units Insulin Aspart (Novolog Mix 70/30 (70/30 Units/Ml)) 40 units SC QAM [facility] Last Admin: 04/26/17 10:54 Dose: 40 units Lactulose (Enulose) 20 gm PO [facility] Last Admin: 04/26/17 21:35 Dose: 20 gm Losartan Potassium (Cozaar) 50 mg PO DAILY [facility] Last Admin: 04/26/17 10:54 Dose: 50 mg Methadone HCl (Methadose) 120 mg PO DAILY [facility] Last Admin: 04/26/17 10:54 Dose: 120 mg Methylprednisolone (Solu-Medrol) 40 mg IVP Q8H [facility] Last Admin: 04/26/17 17:36 Dose: 40 mg Mupirocin (Bactroban Ointment) 0 gm TOP BID [facility] Last Admin: 04/26/17 18:18 Dose: Not Given Naproxen (Anaprox) 275 mg PO 0000,1200 [facility] Last Admin: 04/26/17 14:22 Dose: 275 mg Oxycodone/Acetaminophen (Percocet 5/325 Mg Tab) 1 tab PO Q4H PRN PRN Reason: Pain, moderate (4-7) Stop: 04/29/17 12:01 Oxycodone/Acetaminophen (Percocet 5/325 Mg Tab) 2 tab PO Q4H PRN PRN Reason: Pain, severe (8-10) Stop: 04/29/17 09:59 Rosuvastatin Calcium (Crestor) 10 mg PO [facility] Last Admin: 04/26/17 21:35 Dose: 10 mg Tiotropium [place] (Spiriva) 18 mcg INH RQ24 [facility] Last Admin: 04/26/17 08:31 Dose: 18 mcg - Labs Labs: 04/25/17 06:47 04/26/17 04:13 PT 10.1 SECONDS (9.7-12.2) 04/20/17 19:43 INR 0.9 04/20/17 19:43 APTT 27 SECONDS (21-34) 04/20/17 19:43 - Constitutional Appears: No Acute Distress - Head Exam Head Exam: ATRAUMATIC, NORMAL INSPECTION, NORMOCEPHALIC - Eye Exam Eye Exam: Normal appearance - ENT Exam ENT Exam: Mucous Membranes Moist - Neck Exam Neck Exam: Full ROM, Normal Inspection. absent: Lymphadenopathy - Respiratory Exam Respiratory Exam: Clear to Ausculation Bilateral, NORMAL BREATHING PATTERN - Cardiovascular Exam Cardiovascular Exam: REGULAR RHYTHM, +S1, +S2. absent: Murmur Assessment and Plan (1) Diabetic ulcer of lower extremity Status: Acute (2) HTN (hypertension) Status: Acute
[2017-04-27] MEDS: MethylPREDNISolone 40 mg Vial IVP SCH ×3 (00:05→17:21)
[2017-04-27] MEDS: Naproxen 275 mg Tab PO SCH ×2 (00:07→14:16)
[2017-04-27] MEDS: Albuterol-Ipratrop 3 mg / 0.5 (3 ml) UD INH SCH ×7 (00:26→23:48)
[2017-04-27] MEDS: Piperacill/Tazo 3.375gm in Dex 3.375 GM/50 ML BAG IVPB SCH ×3 (05:20→21:28)
[2017-04-27] MEDS: Tiotropium 18 mcg Cap For Inhalation INH SCH (08:10)
[2017-04-27] MEDS: Enoxaparin 40 mg Syringe SC SCH (09:30)
[2017-04-27] MEDS: Methadone 40 mg Tab PO SCH (09:30)
[2017-04-27] MEDS: (Novolog) Insulin Aspart, Recombinant 100 u/ml 10 ml vial SC SCH ×4 (09:32→22:00)
[2017-04-27] MEDS: (Novolog Mix 70/30) Insulin Aspart/Insulin Aspar 100 units/ml SC SCH ×2 (09:32→17:12)
--- NOTE | 2017-04-27 17:59 | CP.PCM.PN ---
Subjective - Date & Time of Evaluation Date of Evaluation: 04/27/17 Time of Evaluation: 14:00 - Subjective Subjective: Pt seen & evalauted, s/p debribement and graft LE diabetic foot ulcer, on BIPAP for COPD Objective - Vital Signs/Intake and Output Vital Signs (last 24 hours): Temp Pulse Resp BP Pulse Ox 98.5 F 79 20 153/89 H 98 04/27/17 15:00 04/27/17 15:00 04/27/17 15:00 04/27/17 15:00 04/27/17 15:00 Intake and Output: 04/27/17 04/27/17 06:59 18:59 Intake Total 770 450 Balance 770 450 - Medications Medications: Current Medications Acetaminophen (Tylenol 325mg Tab) 650 mg PO Q6 PRN PRN Reason: Pain, Mild (1-3) Albuterol/Ipratropium (Duoneb 3 Mg/0.5 Mg (3 Ml) Ud) 3 ml INH RQ4 [facility] Last Admin: 04/27/17 16:02 Dose: 3 ml Amlodipine Besylate (Norvasc) 10 mg PO DAILY [facility] Last Admin: 04/27/17 09:45 Dose: 10 mg Carvedilol (Coreg) 3.125 mg PO BID [facility] Last Admin: 04/27/17 17:22 Dose: 3.125 mg Enoxaparin Sodium (Lovenox) 40 mg SC DAILY [facility] Last Admin: 04/27/17 09:30 Dose: 40 mg Gentamicin Sulfate 100 mg/ (Sodium Chloride) 102.5 mls @ 100 mls/hr IVPB Q24H [facility] Stop: 04/28/17 19:01 Last Admin: 04/26/17 18:19 Dose: 100 mls/hr Piperacillin Sod/Tazobactam Sod (Zosyn 3.375 Gm Iv Premix) 3.375 gm in 50 mls @ 100 mls/hr IVPB Q8 [facility] Last Admin: 04/27/17 14:15 Dose: 100 mls/hr Insulin Aspart (Novolog) 0 unit SC ACHS [facility] PRN Reason: Protocol Last Admin: 04/27/17 17:11 Dose: 4 unit Insulin Aspart (Novolog Mix 70/30 (70/30 Units/Ml)) 36 units SC QPM [facility] Last Admin: 04/27/17 17:12 Dose: 36 units Insulin Aspart (Novolog Mix 70/30 (70/30 Units/Ml)) 40 units SC QAM [facility] Last Admin: 04/27/17 09:32 Dose: 40 units Lactulose (Enulose) 20 gm PO [facility] Last Admin: 04/26/17 21:35 Dose: 20 gm Losartan Potassium (Cozaar) 50 mg PO DAILY [facility] Last Admin: 04/27/17 09:30 Dose: 50 mg Methadone HCl (Methadose) 120 mg PO DAILY [facility] Methadone HCl (Methadone) 30 mg PO DAILY [facility] Methadone HCl (Methadone) 5 mg PO DAILY [facility] Methylprednisolone (Solu-Medrol) 40 mg IVP Q8H [facility] Last Admin: 04/27/17 17:21 Dose: 40 mg Mupirocin (Bactroban Ointment) 0 gm TOP BID [facility] Last Admin: 04/27/17 09:44 Dose: Not Given Naproxen (Anaprox) 275 mg PO 0000,1200 [facility] Last Admin: 04/27/17 14:16 Dose: 275 mg Oxycodone/Acetaminophen (Percocet 5/325 Mg Tab) 1 tab PO Q4H PRN PRN Reason: Pain, moderate (4-7) Stop: 04/29/17 12:01 Oxycodone/Acetaminophen (Percocet 5/325 Mg Tab) 2 tab PO Q4H PRN PRN Reason: Pain, severe (8-10) Stop: 04/29/17 09:59 Rosuvastatin Calcium (Crestor) 10 mg PO [facility] Last Admin: 04/26/17 21:35 Dose: 10 mg Tiotropium [place] (Spiriva) 18 mcg INH RQ24 [facility] Last Admin: 04/27/17 08:10 Dose: 18 mcg - Labs Labs: 04/25/17 06:47 04/26/17 04:13 PT 10.1 SECONDS (9.7-12.2) 04/20/17 19:43 INR 0.9 04/20/17 19:43 APTT 27 SECONDS (21-34) 04/20/17 19:43 - Constitutional Appears: No Acute Distress - Head Exam Head Exam: ATRAUMATIC, NORMAL INSPECTION, NORMOCEPHALIC - Eye Exam Eye Exam: EOMI, Normal appearance, PERRL Pupil Exam: NORMAL ACCOMODATION, PERRL - ENT Exam ENT Exam: Mucous Membranes Moist, Normal Exam - Neck Exam Neck Exam: Full ROM, Normal Inspection. absent: Lymphadenopathy - Respiratory Exam Respiratory Exam: Decreased Breath Sounds, Rales, Rhonchi - Cardiovascular Exam Cardiovascular Exam: REGULAR RHYTHM, +S1, +S2. absent: Murmur - GI/Abdominal Exam GI & Abdominal Exam: Soft, Normal Bowel Sounds. absent: Tenderness Assessment and Plan (1) Diabetic ulcer of lower extremity Status: Acute (2) HTN (hypertension) Status: Acute
[2017-04-27] MEDS ORDERED: Benzocaine/Menthol (Cepacol) Lozenge MT SCH (22:00)
[2017-04-28] MEDS: Naproxen 275 mg Tab PO SCH ×2 (00:07→12:35)
[2017-04-28] MEDS: MethylPREDNISolone 40 mg Vial IVP SCH ×2 (00:27→10:32)
[2017-04-28] MEDS: Albuterol-Ipratrop 3 mg / 0.5 (3 ml) UD INH SCH ×6 (03:14→23:34)
[2017-04-28] MEDS: Piperacill/Tazo 3.375gm in Dex 3.375 GM/50 ML BAG IVPB SCH ×3 (06:00→21:13)
[2017-04-28] MEDS: Tiotropium 18 mcg Cap For Inhalation INH SCH (08:27)
[2017-04-28 09:03] LABS: CHLORIDE 96 mmol/L (98-107); POTASSIUM 4.6 mmol/L (3.6-5.2); SODIUM 136 mmol/L (132-148)
[2017-04-28 09:06] LABS: BLOOD UREA NITROGEN 27 mg/dL (7-17); CARBON DIOXIDE 33 mmol/L (22-30); GFR AFRICAN-AMERICAN > 60; GLUCOSE,RANDOM 335 mg/dL (65-105)
[2017-04-28 09:07] LABS: CALCIUM 8.4 mg/dl (8.6-10.4)
[2017-04-28] MEDS: Methadone 40 mg Tab PO SCH (10:18)
[2017-04-28] MEDS: Enoxaparin 40 mg Syringe SC SCH (10:21)
[2017-04-28] MEDS: (Novolog) Insulin Aspart, Recombinant 100 u/ml 10 ml vial SC SCH ×4 (10:22→22:46)
[2017-04-28] MEDS: (Novolog Mix 70/30) Insulin Aspart/Insulin Aspar 100 units/ml SC SCH ×2 (10:24→17:56)
--- NOTE | 2017-04-28 13:43 | CP.PCM.PN ---
Subjective - Date & Time of Evaluation Date of Evaluation: 04/28/17 Time of Evaluation: 13:40 - Subjective Subjective: 56 y/o female patient seen and evaluated at bedside for follow up on 2 days s/p left lower extremity wound debridement and graft application. Patient was resting comfortably in bed and in NAD. AAOx3. Patient denies any pain at this time. LLE dressing intact, clean and dry. Patient denies any symptoms of N/V/F/ SOB/Chest pain. Objective - Vital Signs/Intake and Output Vital Signs (last 24 hours): Temp Pulse Resp BP Pulse Ox 98.7 F 72 20 156/95 H 95 04/28/17 08:00 04/28/17 08:00 04/28/17 08:00 04/28/17 08:00 04/28/17 08:00 Intake and Output: 04/28/17 04/28/17 06:59 18:59 Intake Total 250 Balance 250 - Medications Medications: Current Medications Acetaminophen (Tylenol 325mg Tab) 650 mg PO Q6 PRN PRN Reason: Pain, Mild (1-3) Albuterol/Ipratropium (Duoneb 3 Mg/0.5 Mg (3 Ml) Ud) 3 ml INH RQ4 [facility] Last Admin: 04/28/17 11:42 Dose: Not Given Amlodipine Besylate (Norvasc) 10 mg PO DAILY [facility] Last Admin: 04/28/17 10:31 Dose: 10 mg Benzocaine/Menthol (Cepacol Sore Throat) 1 michelle MT QID PRN PRN Reason: Sore Throat Carvedilol (Coreg) 3.125 mg PO BID [facility] Last Admin: 04/28/17 10:24 Dose: 3.125 mg Enoxaparin Sodium (Lovenox) 40 mg SC DAILY [facility] Last Admin: 04/28/17 10:21 Dose: 40 mg Gentamicin Sulfate 100 mg/ (Sodium Chloride) 102.5 mls @ 100 mls/hr IVPB Q24H [facility] Stop: 04/28/17 19:01 Last Admin: 04/27/17 18:00 Dose: 100 mls/hr Piperacillin Sod/Tazobactam Sod (Zosyn 3.375 Gm Iv Premix) 3.375 gm in 50 mls @ 100 mls/hr IVPB Q8 [facility] Last Admin: 04/28/17 13:04 Dose: 100 mls/hr Insulin Aspart (Novolog) 0 unit SC ACHS [facility] PRN Reason: Protocol Last Admin: 04/28/17 12:36 Dose: 4 unit Insulin Aspart (Novolog Mix 70/30 (70/30 Units/Ml)) 36 units SC QPM [facility] Last Admin: 04/27/17 17:12 Dose: 36 units Insulin Aspart (Novolog Mix 70/30 (70/30 Units/Ml)) 40 units SC QAM [facility] Last Admin: 04/28/17 10:24 Dose: 40 units Lactulose (Enulose) 20 gm PO HS [facility] Last Admin: 04/27/17 21:27 Dose: 20 gm Losartan Potassium (Cozaar) 50 mg PO DAILY [facility] Last Admin: 04/28/17 10:24 Dose: 50 mg Methadone HCl (Methadose) 120 mg PO DAILY [facility] Last Admin: 04/28/17 10:18 Dose: 120 mg Methadone HCl (Methadone) 30 mg PO DAILY [facility] Last Admin: 04/28/17 10:18 Dose: 30 mg Methadone HCl (Methadone) 5 mg PO DAILY [facility] Last Admin: 04/28/17 10:19 Dose: 5 mg Mupirocin (Bactroban Ointment) 0 gm TOP BID [facility] Last Admin: 04/28/17 10:33 Dose: Not Given Naproxen (Anaprox) 275 mg PO 0000,1200 [facility] Last Admin: 04/28/17 12:35 Dose: 275 mg Oxycodone/Acetaminophen (Percocet 5/325 Mg Tab) 1 tab PO Q4H PRN PRN Reason: Pain, moderate (4-7) Stop: 04/29/17 12:01 Oxycodone/Acetaminophen (Percocet 5/325 Mg Tab) 2 tab PO Q4H PRN PRN Reason: Pain, severe (8-10) Stop: 04/29/17 09:59 Prednisone (Prednisone Tab) 20 mg PO DAILY [facility] Stop: 05/01/17 10:01 Last Admin: 04/28/17 12:35 Dose: 20 mg Prednisone (Prednisone Tab) 10 mg PO DAILY [facility] Stop: 05/04/17 10:01 Prednisone (Prednisone Tab) 5 mg PO DAILY [facility] Stop: 05/07/17 10:01 Rosuvastatin Calcium (Crestor) 10 mg PO HS [facility] Last Admin: 04/27/17 21:27 Dose: 10 mg Tiotropium [place] (Spiriva) 18 mcg INH RQ24 [facility] Last Admin: 04/28/17 08:27 Dose: 18 mcg - Labs Labs: 04/25/17 06:47 04/28/17 08:21 PT 10.1 SECONDS (9.7-12.2) 04/20/17 19:43 INR 0.9 04/20/17 19:43 APTT 27 SECONDS (21-34) 04/20/17 19:43 - Constitutional Appears: Well, Non-toxic, No Acute Distress - Extremities Exam Additional comments: Left lower extremity dressing clean,dry, intact. CFT is less than 3 seconds DP and PT pulses palpable. No pain with palpation and normal ambulation - Neurological Exam Neurological Exam: Alert, Awake - Psychiatric Exam Psychiatric exam: Normal Affect, Normal Mood Assessment and Plan - Assessment and Plan (Free Text) Assessment: 56 y/o female patient with 2 days s/p LLE wound debridement and graft application Plan: Patient seen and evaluated at bedside All the questions and concerns were addressed Discussed with attending Dr. Huynh Dressing is intact and clean and dry Will change dressing on Saturday Labs and vitals were reviewed Podiatry will continue to follow while patient remains in house
[2017-04-28] MEDS: Benzocaine/Menthol (Cepacol) Lozenge MT PRN (18:05)
--- NOTE | 2017-04-28 23:27 | CP.PCM.PN ---
Subjective - Date & Time of Evaluation Date of Evaluation: 04/28/17 Time of Evaluation: 10:00 - Subjective Subjective: 56 y/o female patient seen and evaluated at bedside for follow up on 2 days s/p left lower extremity wound debridement and graft application. Patient was resting comfortably in bed and in NAD. AAOx3. Patient denies any pain at this time. LLE dressing intact, clean and dry. Patient denies any symptoms of N/V/F/ SOB/Chest pain. Objective - Vital Signs/Intake and Output Vital Signs (last 24 hours): Temp Pulse Resp BP Pulse Ox 98.4 F 72 20 125/65 98 04/28/17 15:00 04/28/17 15:00 04/28/17 15:00 04/28/17 15:00 04/28/17 15:00 Intake and Output: 04/28/17 04/29/17 18:59 06:59 Intake Total 500 650 Output Total 800 Balance 500 -150 - Medications Medications: Current Medications Acetaminophen (Tylenol 325mg Tab) 650 mg PO Q6 PRN PRN Reason: Pain, Mild (1-3) Albuterol/Ipratropium (Duoneb 3 Mg/0.5 Mg (3 Ml) Ud) 3 ml INH RQ4 [facility] Last Admin: 04/28/17 20:03 Dose: 3 ml Amlodipine Besylate (Norvasc) 10 mg PO DAILY [facility] Last Admin: 04/28/17 10:31 Dose: 10 mg Benzocaine/Menthol (Cepacol Sore Throat) 1 michelle MT QID PRN PRN Reason: Sore Throat Last Admin: 04/28/17 18:05 Dose: 1 michelle Carvedilol (Coreg) 3.125 mg PO BID [facility] Last Admin: 04/28/17 17:55 Dose: 3.125 mg Enoxaparin Sodium (Lovenox) 40 mg SC DAILY [facility] Last Admin: 04/28/17 10:21 Dose: 40 mg Piperacillin Sod/Tazobactam Sod (Zosyn 3.375 Gm Iv Premix) 3.375 gm in 50 mls @ 100 mls/hr IVPB Q8 [facility] Last Admin: 04/28/17 21:13 Dose: 100 mls/hr Insulin Aspart (Novolog) 0 unit SC ACHS [facility] PRN Reason: Protocol Last Admin: 04/28/17 22:46 Dose: 2 unit Insulin Aspart (Novolog Mix 70/30 (70/30 Units/Ml)) 36 units SC QPM [facility] Last Admin: 04/28/17 17:56 Dose: 36 units Insulin Aspart (Novolog Mix 70/30 (70/30 Units/Ml)) 40 units SC QAM [facility] Last Admin: 04/28/17 10:24 Dose: 40 units Lactulose (Enulose) 20 gm PO HS [facility] Last Admin: 04/28/17 22:47 Dose: Not Given Losartan Potassium (Cozaar) 50 mg PO DAILY [facility] Last Admin: 04/28/17 10:24 Dose: 50 mg Methadone HCl (Methadose) 120 mg PO DAILY [facility] Last Admin: 04/28/17 10:18 Dose: 120 mg Methadone HCl (Methadone) 30 mg PO DAILY [facility] Last Admin: 04/28/17 10:18 Dose: 30 mg Methadone HCl (Methadone) 5 mg PO DAILY [facility] Last Admin: 04/28/17 10:19 Dose: 5 mg Mupirocin (Bactroban Ointment) 0 gm TOP BID [facility] Last Admin: 04/28/17 18:02 Dose: Not Given Naproxen (Anaprox) 275 mg PO 0000,1200 [facility] Last Admin: 04/28/17 12:35 Dose: 275 mg Oxycodone/Acetaminophen (Percocet 5/325 Mg Tab) 1 tab PO Q4H PRN PRN Reason: Pain, moderate (4-7) Stop: 04/29/17 12:01 Oxycodone/Acetaminophen (Percocet 5/325 Mg Tab) 2 tab PO Q4H PRN PRN Reason: Pain, severe (8-10) Stop: 04/29/17 09:59 Prednisone (Prednisone Tab) 20 mg PO DAILY [facility] Stop: 05/01/17 10:01 Last Admin: 04/28/17 12:35 Dose: 20 mg Prednisone (Prednisone Tab) 10 mg PO DAILY [facility] Stop: 05/04/17 10:01 Prednisone (Prednisone Tab) 5 mg PO DAILY [facility] Stop: 05/07/17 10:01 Rosuvastatin Calcium (Crestor) 10 mg PO HS [facility] Last Admin: 04/28/17 22:42 Dose: 10 mg Tiotropium [place] (Spiriva) 18 mcg INH RQ24 [facility] Last Admin: 04/28/17 08:27 Dose: 18 mcg - Labs Labs: 04/25/17 06:47 04/28/17 08:21 PT 10.1 SECONDS (9.7-12.2) 04/20/17 19:43 INR 0.9 04/20/17 19:43 APTT 27 SECONDS (21-34) 04/20/17 19:43 - Constitutional Appears: No Acute Distress - Head Exam Head Exam: ATRAUMATIC, NORMAL INSPECTION, NORMOCEPHALIC - Eye Exam Eye Exam: EOMI, Normal appearance, PERRL Pupil Exam: NORMAL ACCOMODATION, PERRL - Respiratory Exam Respiratory Exam: Clear to Ausculation Bilateral, NORMAL BREATHING PATTERN - Cardiovascular Exam Cardiovascular Exam: REGULAR RHYTHM, +S1, +S2. absent: Murmur - GI/Abdominal Exam GI & Abdominal Exam: Soft, Normal Bowel Sounds. absent: Tenderness - Extremities Exam Additional comments: lle in dressing Assessment and Plan (1) Diabetic ulcer of lower extremity Status: Acute (2) HTN (hypertension) Status: Acute
[2017-04-29] MEDS: Naproxen 275 mg Tab PO SCH ×2 (00:10→12:21)
[2017-04-29] MEDS: Albuterol-Ipratrop 3 mg / 0.5 (3 ml) UD INH SCH ×4 (03:27→16:05)
[2017-04-29] MEDS: Piperacill/Tazo 3.375gm in Dex 3.375 GM/50 ML BAG IVPB SCH ×2 (05:50→13:36)
--- NOTE | 2017-04-29 08:11 | OP ---
PROCEDURE DATE: 04/26/[address] Huynh. SURGEON: Dr. Huynh. CRIMINAL ANALYST: Megan Alex, PGY-1 and Dale Kenny, PGY-2. BULK MAIL CLERK: Dr. Forrest. ANESTHESIA: IV sedation and local. PREOPERATIVE DIAGNOSIS: Left lower extremity nonhealing ulceration. POSTOPERATIVE DIAGNOSIS: Left lower extremity nonhealing ulceration. NAME OF THE PROCEDURE: Left lower extremity wound debridement with Misonix and graft application. INDICATIONS: This is a 56-year-old female patient with the above diagnosis. The patient is being se en Dr. Huynh in his office for left lower extremity nonhealing ulcer and the ulcer has gotten worse a nd the patient was sent to [facility] for IV antibiotics. The patient decided to have wound whitney ridement and graft application at this time, and the patient signed the consent after careful explana tion of risks, benefits, complication and alternatives for surgical procedure. No guarantees were gi humberto nor implied. The patient has been receiving IV antibiotics on floor and n.p.o. status was confir med prior to taking the patient to the OR. PREPARATION: The patient was brought to the operating room and placed on the operating room table in supine position. After induction of IV sedation, the patient received a total of 20 mL of 0.5% Carlos nasreen plain and 1% lidocaine plain in local block fashion to the left lower extremity. Once local ane sthesia was achieved, the left lower extremity was prepped and draped in usual sterile manner and pro cedure began. DESCRIPTION OF PROCEDURE: Attention was directed to the anterior medial aspect of the left lower ext remity where the open wound is located. The wound size was measured as 5.5 cm x 6 cm x 0.1 cm with m ixture of granular and fibrotic wound base. Next, utilizing Misonix handpiece, the wound site was ex cisionally debrided, and after debridement, the wound base was changed to granular wound base. Next, biological dressing (AlloDerm) was applied to the open wound and was fixed with a 4-0 nylon in simpl e suture technique. The left lower extremity was dressed with Adaptic, wet to dry dressing, Xeroform and DSD and Coban. The attending was present during the case. POSTOPERATIVE CONDITION: The patient tolerated anesthesia and procedure well and was escorted to the recovery room with vital signs stable and neurovascular status intact to the left lower extremity. This patient will go back to floor to finish IV antibiotic treatment. Dale Kenny DPM Fish Huynh DPM cc: [id number] TT: 04/28/2017 01:21:31 mn 04/29/2017 07:09:52
[2017-04-29] MEDS: (Novolog) Insulin Aspart, Recombinant 100 u/ml 10 ml vial SC SCH ×3 (08:25→17:10)
[2017-04-29] MEDS: Tiotropium 18 mcg Cap For Inhalation INH SCH (08:37)
[2017-04-29] MEDS: Enoxaparin 40 mg Syringe SC SCH (09:00)
[2017-04-29] MEDS: (Novolog Mix 70/30) Insulin Aspart/Insulin Aspar 100 units/ml SC SCH ×2 (09:00→17:41)
[2017-04-29] MEDS: Methadone 40 mg Tab PO SCH (09:01)
[2017-04-29] MEDS: Benzocaine/Menthol (Cepacol) Lozenge MT PRN ×2 (09:07→13:36)
[2017-04-29 14:42] LABS: BASO # 0.1 K/uL (0.0-0.2); BASO % 0.5 % (0.0-2.0); EOS # 0.9 K/uL (0.0-0.7); EOS % 5.9 % (0.0-4.0); HEMATOCRIT 38.9 % (34.0-47.0); LYMPH # 2.8 K/uL (1.0-4.3); LYMPH % 17.8 % (20.0-40.0); MEAN CELL VOLUME 73.3 fL (81.0-99.0); MEAN CORPUSCULAR HEMOGLOBIN 22.2 pg (27.0-31.0); MEAN CORPUSCULAR HGB CONC 30.3 g/dL (33.0-37.0); MEAN PLATELET VOLUME 9.5 fL (7.2-11.7); MONO # 1.6 K/uL (0.0-0.8); MONO % 10.1 % (0.0-10.0); NRBC % 0.2 % (0.0-2.0); RED CELL DISTRIBUTION WIDTH 17.4 % (11.5-14.5); WHITE BLOOD COUNT 15.5 K/uL (4.8-10.8)
[2017-04-29 14:50] LABS: CHLORIDE 100 mmol/L (98-107); POTASSIUM 3.9 mmol/L (3.6-5.2); SODIUM 137 mmol/L (132-148)
[2017-04-29 14:53] LABS: BLOOD UREA NITROGEN 29 mg/dL (7-17); CARBON DIOXIDE 33 mmol/L (22-30); GFR AFRICAN-AMERICAN > 60
[2017-04-29 14:54] LABS: CALCIUM 7.9 mg/dl (8.6-10.4); GLUCOSE,RANDOM 92 mg/dL (65-105)
--- NOTE | 2017-04-29 15:42 | CP.PCM.PN ---
Subjective - Date & Time of Evaluation Date of Evaluation: 04/29/17 Time of Evaluation: 15:40 - Subjective Subjective: Fernanda Combs patient was seen and examined at bedside, fernanda combs called because patient was found on floor. Patient reports she was changing her shoes on a chair when she stood up and grabbed her other shoe. She bent down to grab it and she bumped her head on the neighboring bed. Patient then fell to the floor on her buttocks. She denies loss of consciousness, no memory loss, changes in vision or focal neural deficits. She says she has a headache in the area that it was hurt. Head CT ordered. Patient was told that if it was negative for abnormalities, she should go home. If symptoms worsen or if she develops new symptoms, patient is to return to the ED for further evaluation and treatment. Tylenol ordered for pain. Objective - Vital Signs/Intake and Output Vital Signs (last 24 hours): Temp Pulse Resp BP Pulse Ox 98.2 F 72 20 151/79 H 95 04/29/17 07:31 04/29/17 07:31 04/29/17 07:31 04/29/17 07:31 04/29/17 07:31 Intake and Output: 04/29/17 04/29/17 06:59 18:59 Intake Total 950 Output Total 800 Balance 150 - Medications Medications: Current Medications Acetaminophen (Tylenol 325mg Tab) 650 mg PO Q6 PRN PRN Reason: Pain, Mild (1-3) Albuterol/Ipratropium (Duoneb 3 Mg/0.5 Mg (3 Ml) Ud) 3 ml INH RQ4 [facility] Last Admin: 04/29/17 15:18 Dose: Not Given Amlodipine Besylate (Norvasc) 10 mg PO DAILY [facility] Last Admin: 04/29/17 09:05 Dose: 10 mg Benzocaine/Menthol (Cepacol Sore Throat) 1 michelle MT QID PRN PRN Reason: Sore Throat Last Admin: 04/29/17 13:36 Dose: 1 michelle Carvedilol (Coreg) 3.125 mg PO BID [facility] Last Admin: 04/29/17 09:03 Dose: 3.125 mg Enoxaparin Sodium (Lovenox) 40 mg SC DAILY [facility] Last Admin: 04/29/17 09:00 Dose: 40 mg Piperacillin Sod/Tazobactam Sod (Zosyn 3.375 Gm Iv Premix) 3.375 gm in 50 mls @ 100 mls/hr IVPB Q8 [facility] Last Admin: 04/29/17 13:36 Dose: 100 mls/hr Insulin Aspart (Novolog) 0 unit SC ACHS [facility] PRN Reason: Protocol Last Admin: 04/29/17 12:18 Dose: Not Given Insulin Aspart (Novolog Mix 70/30 (70/30 Units/Ml)) 36 units SC QPM [facility] Last Admin: 04/28/17 17:56 Dose: 36 units Insulin Aspart (Novolog Mix 70/30 (70/30 Units/Ml)) 40 units SC QAM [facility] Last Admin: 04/29/17 09:00 Dose: 40 units Lactulose (Enulose) 20 gm PO HS [facility] Last Admin: 04/28/17 22:47 Dose: Not Given Losartan Potassium (Cozaar) 50 mg PO DAILY [facility] Last Admin: 04/29/17 09:05 Dose: 50 mg Methadone HCl (Methadose) 120 mg PO DAILY [facility] Last Admin: 04/29/17 09:01 Dose: 120 mg Methadone HCl (Methadone) 30 mg PO DAILY [facility] Last Admin: 04/29/17 09:03 Dose: 30 mg Methadone HCl (Methadone) 5 mg PO DAILY [facility] Last Admin: 04/29/17 09:04 Dose: 5 mg Mupirocin (Bactroban Ointment) 0 gm TOP BID [facility] Last Admin: 04/29/17 09:08 Dose: Not Given Naproxen (Anaprox) 275 mg PO 0000,1200 [facility] Last Admin: 04/29/17 12:21 Dose: 275 mg Prednisone (Prednisone Tab) 20 mg PO DAILY [facility] Stop: 05/01/17 10:01 Last Admin: 04/29/17 09:23 Dose: Not Given Prednisone (Prednisone Tab) 10 mg PO DAILY [facility] Stop: 05/04/17 10:01 Prednisone (Prednisone Tab) 5 mg PO DAILY [facility] Stop: 05/07/17 10:01 Rosuvastatin Calcium (Crestor) 10 mg PO HS [facility] Last Admin: 04/28/17 22:42 Dose: 10 mg Tiotropium [place] (Spiriva) 18 mcg INH RQ24 [facility] Last Admin: 04/29/17 08:37 Dose: Not Given - Labs Labs: 04/29/17 14:25 04/29/17 14:25 PT 10.1 SECONDS (9.7-12.2) 04/20/17 19:43 INR 0.9 04/20/17 19:43 APTT 27 SECONDS (21-34) 04/20/17 19:43
--- NOTE | 2017-04-29 16:39 | CP.PCM.PN ---
Subjective - Date & Time of Evaluation Date of Evaluation: 04/29/17 Time of Evaluation: 16:39 - Subjective Subjective: 56 y/o female patient seen and evaluated at bedside 3 days s/p left lower extremity wound debridement and graft application. Patient was seen sitting bedside in [facility]. Patient denies any pain to the LLE at this time. LLE dressing intact, clean and dry as she states it was just changed by Dr. Huynh. Does admit that she suffered a fall earlier and hit her head for which she received imaging. Denies F/C/N/V/SOB. Objective - Vital Signs/Intake and Output Vital Signs (last 24 hours): Temp Pulse Resp BP Pulse Ox 98.2 F 72 20 151/79 H 95 04/29/17 07:31 04/29/17 07:31 04/29/17 07:31 04/29/17 07:31 04/29/17 07:31 Intake and Output: 04/29/17 04/29/17 06:59 18:59 Intake Total 950 Output Total 800 Balance 150 - Medications Medications: Current Medications Acetaminophen (Tylenol 325mg Tab) 650 mg PO Q6 PRN PRN Reason: Pain, Mild (1-3) Albuterol/Ipratropium (Duoneb 3 Mg/0.5 Mg (3 Ml) Ud) 3 ml INH RQ4 [facility] Last Admin: 04/29/17 15:18 Dose: Not Given Amlodipine Besylate (Norvasc) 10 mg PO DAILY [facility] Last Admin: 04/29/17 09:05 Dose: 10 mg Benzocaine/Menthol (Cepacol Sore Throat) 1 michelle MT QID PRN PRN Reason: Sore Throat Last Admin: 04/29/17 13:36 Dose: 1 michelle Carvedilol (Coreg) 3.125 mg PO BID [facility] Last Admin: 04/29/17 09:03 Dose: 3.125 mg Enoxaparin Sodium (Lovenox) 40 mg SC DAILY [facility] Last Admin: 04/29/17 09:00 Dose: 40 mg Piperacillin Sod/Tazobactam Sod (Zosyn 3.375 Gm Iv Premix) 3.375 gm in 50 mls @ 100 mls/hr IVPB Q8 [facility] Last Admin: 04/29/17 13:36 Dose: 100 mls/hr Insulin Aspart (Novolog) 0 unit SC ACHS [facility] PRN Reason: Protocol Last Admin: 04/29/17 12:18 Dose: Not Given Insulin Aspart (Novolog Mix 70/30 (70/30 Units/Ml)) 36 units SC QPM [facility] Last Admin: 04/28/17 17:56 Dose: 36 units Insulin Aspart (Novolog Mix 70/30 (70/30 Units/Ml)) 40 units SC QAM [facility] Last Admin: 04/29/17 09:00 Dose: 40 units Lactulose (Enulose) 20 gm PO HS [facility] Last Admin: 04/28/17 22:47 Dose: Not Given Losartan Potassium (Cozaar) 50 mg PO DAILY [facility] Last Admin: 04/29/17 09:05 Dose: 50 mg Methadone HCl (Methadose) 120 mg PO DAILY [facility] Last Admin: 04/29/17 09:01 Dose: 120 mg Methadone HCl (Methadone) 30 mg PO DAILY [facility] Last Admin: 04/29/17 09:03 Dose: 30 mg Methadone HCl (Methadone) 5 mg PO DAILY [facility] Last Admin: 04/29/17 09:04 Dose: 5 mg Mupirocin (Bactroban Ointment) 0 gm TOP BID [facility] Last Admin: 04/29/17 09:08 Dose: Not Given Naproxen (Anaprox) 275 mg PO 0000,1200 [facility] Last Admin: 04/29/17 12:21 Dose: 275 mg Prednisone (Prednisone Tab) 20 mg PO DAILY [facility] Stop: 05/01/17 10:01 Last Admin: 04/29/17 09:23 Dose: Not Given Prednisone (Prednisone Tab) 10 mg PO DAILY [facility] Stop: 05/04/17 10:01 Prednisone (Prednisone Tab) 5 mg PO DAILY [facility] Stop: 05/07/17 10:01 Rosuvastatin Calcium (Crestor) 10 mg PO HS [facility] Last Admin: 04/28/17 22:42 Dose: 10 mg Tiotropium [place] (Spiriva) 18 mcg INH RQ24 [facility] Last Admin: 04/29/17 08:37 Dose: Not Given - Labs Labs: 04/29/17 14:25 04/29/17 14:25 PT 10.1 SECONDS (9.7-12.2) 04/20/17 19:43 INR 0.9 04/20/17 19:43 APTT 27 SECONDS (21-34) 06/10/17 19:43 - Constitutional Appears: No Acute Distress - Extremities Exam Additional comments: Left lower extremity dressing clean,dry, intact. CFT is less than 3 seconds DP and PT pulses palpable. No pain with palpation and normal ambulation - Neurological Exam Neurological Exam: Alert, Awake, Oriented x3 Assessment and Plan - Assessment and Plan (Free Text) Assessment: 56 y/o female patient 3 days s/p LLE wound debridement and graft application Plan: Patient seen and evaluated at bedside All the questions and concerns were addressed Discussed with attending Dr. Huynh Dressing is intact and clean and dry Will change dressing as outpt on Saturday in Dr. Huynh's office. Stable for discharge from podiatry standpoint once cleared s/p fall.
[2017-04-29 16:43] VITALS: BP 137/85; PULSE 82
--- NOTE | 2017-04-29 16:54 | CP.PCM.PN ---
Subjective - Date & Time of Evaluation Date of Evaluation: 04/29/17 Time of Evaluation: 16:56 - Subjective Subjective: awake, alert, NAD. Objective - Vital Signs/Intake and Output Vital Signs (last 24 hours): Temp Pulse Resp BP Pulse Ox 98.7 F 82 20 137/85 85 L 04/29/17 16:00 04/29/17 16:00 04/29/17 16:00 04/29/17 16:00 04/29/17 16:00 Intake and Output: 04/29/17 04/29/17 06:59 18:59 Intake Total 950 Output Total 800 Balance 150 - Medications Medications: Current Medications Acetaminophen (Tylenol 325mg Tab) 650 mg PO Q6 PRN PRN Reason: Pain, Mild (1-3) Albuterol/Ipratropium (Duoneb 3 Mg/0.5 Mg (3 Ml) Ud) 3 ml INH RQ4 [facility] Last Admin: 04/29/17 15:18 Dose: Not Given Amlodipine Besylate (Norvasc) 10 mg PO DAILY [facility] Last Admin: 04/29/17 09:05 Dose: 10 mg Benzocaine/Menthol (Cepacol Sore Throat) 1 michelle MT QID PRN PRN Reason: Sore Throat Last Admin: 04/29/17 13:36 Dose: 1 michelle Carvedilol (Coreg) 3.125 mg PO BID [facility] Last Admin: 04/29/17 09:03 Dose: 3.125 mg Enoxaparin Sodium (Lovenox) 40 mg SC DAILY [facility] Last Admin: 04/29/17 09:00 Dose: 40 mg Piperacillin Sod/Tazobactam Sod (Zosyn 3.375 Gm Iv Premix) 3.375 gm in 50 mls @ 100 mls/hr IVPB Q8 [facility] Last Admin: 04/29/17 13:36 Dose: 100 mls/hr Insulin Aspart (Novolog) 0 unit SC ACHS [facility] PRN Reason: Protocol Last Admin: 04/29/17 12:18 Dose: Not Given Insulin Aspart (Novolog Mix 70/30 (70/30 Units/Ml)) 36 units SC QPM [facility] Last Admin: 04/28/17 17:56 Dose: 36 units Insulin Aspart (Novolog Mix 70/30 (70/30 Units/Ml)) 40 units SC QAM [facility] Last Admin: 04/29/17 09:00 Dose: 40 units Lactulose (Enulose) 20 gm PO HS [facility] Last Admin: 04/28/17 22:47 Dose: Not Given Losartan Potassium (Cozaar) 50 mg PO DAILY [facility] Last Admin: 04/29/17 09:05 Dose: 50 mg Methadone HCl (Methadose) 120 mg PO DAILY [facility] Last Admin: 04/29/17 09:01 Dose: 120 mg Methadone HCl (Methadone) 30 mg PO DAILY [facility] Last Admin: 04/29/17 09:03 Dose: 30 mg Methadone HCl (Methadone) 5 mg PO DAILY [facility] Last Admin: 04/29/17 09:04 Dose: 5 mg Mupirocin (Bactroban Ointment) 0 gm TOP BID [facility] Last Admin: 04/29/17 09:08 Dose: Not Given Naproxen (Anaprox) 275 mg PO 0000,1200 [facility] Last Admin: 04/29/17 12:21 Dose: 275 mg Prednisone (Prednisone Tab) 20 mg PO DAILY [facility] Stop: 05/01/17 10:01 Last Admin: 04/29/17 09:23 Dose: Not Given Prednisone (Prednisone Tab) 10 mg PO DAILY [facility] Stop: 05/04/17 10:01 Prednisone (Prednisone Tab) 5 mg PO DAILY [facility] Stop: 05/07/17 10:01 Rosuvastatin Calcium (Crestor) 10 mg PO [facility] Last Admin: 04/28/17 22:42 Dose: 10 mg Tiotropium [place] (Spiriva) 18 mcg INH RQ24 [facility] Last Admin: 04/29/17 08:37 Dose: Not Given - Labs Labs: 04/29/17 14:25 04/29/17 14:25 PT 10.1 SECONDS (9.7-12.2) 04/20/17 19:43 INR 0.9 04/20/17 19:43 APTT 27 SECONDS (21-34) 04/20/17 19:43 Assessment and Plan - Assessment and Plan (Free Text) Assessment: Patient is seen and examined. Denies any complaints. Seen bt DR Huynh, dressings changed on the leg wound.D/W DR Godinez and DR Huynh, plan ti diacharge home today on augmentin and bacid for 10 days. Advised to see DR Huynh on Saturday and do not change or touch the dressings. Verbalized understanding of the instructions given.
[2017-04-29 17:09] VITALS: O2SAT 95
--- NOTE | 2017-04-29 17:45 | CT ---
EXAM: CT Head Without Intravenous Contrast CLINICAL HISTORY: 56 years old, female; Injury or trauma; Fall; Initial encounter; Blunt trauma (contusions or hematomas); Consciousness not specified; Additional info: Code star, head trauma TECHNIQUE: Axial computed tomography images of the head/brain without intravenous contrast. This CT exam was performed using one or more of the following dose reduction techniques: automated exposure control, adjustment of the mA and/or kV according to patient size, and/or use of iterative reconstruction technique. EXAM DATE/TIME: Exam ordered 04/29/2017 3:43 PM COMPARISON: No relevant prior studies available. FINDINGS: Brain: There is a 1 cm area of low density noted within the right thalamus consistent with previous infarct There is mild periventricular low density present extending into the coronado radiata and centrum semiovale bilaterally. No hemorrhage. No significant white matter disease. No edema. Ventricles: Unremarkable. No ventriculomegaly. Bones/joints: There is deformity of the left ethmoid lamina papyracea suggesting previous trauma. No acute fracture. Soft tissues: There are no findings to suggest acute trauma. The left intraconal and extraconal soft tissue structures appear normal Sinuses: See above. Mastoid air cells: Unremarkable as visualized. No mastoid effusion. IMPRESSION: 1. No acute findings. 2. Right thalamic infarct noted on report from a previous head CT dated 11/27/[address] [facility]. Those films are not available for direct comparison 3. Small vessel ischemic changes noted within the periventricular white matter extending into the coronado radiata and centrum semiovale
[2017-04-29 17:46] VITALS: TEMP 97.8
--- NOTE | 2017-04-29 23:27 | CP.PCM.DIS ---
Provider - Provider Date of Admission: 04/20/17 20:41 Attending physician: Fernando Godinez MD Time Spent in preparation of Discharge (in minutes): 52 Diagnosis - Discharge Diagnosis (1) Diabetic ulcer of lower extremity Status: Acute (2) HTN (hypertension) Status: Acute Hospital Course - Lab Results Lab Results: Micro Results 04/21/17 21:00 Leg - Left Gram Stain - Final 04/21/17 21:00 Leg - Left Wound Culture - Final Pseudomonas Aeruginosa Enterococcus Faecalis Most Recent Lab Values WBC 15.5 K/uL (4.8-10.8) H 04/29/17 14:25 RBC 5.31 Mil/uL (3.80-5.20) H 04/29/17 14:25 Hgb 11.8 g/dL (11.0-16.0) 04/29/17 14:25 Hct 38.9 % (34.0-47.0) 04/29/17 14:25 MCV 73.3 fL (81.0-99.0) L 04/29/17 14:25 MCH 22.2 pg (27.0-31.0) L 04/29/17 14:25 MCHC 30.3 g/dL (33.0-37.0) L 04/29/17 14:25 RDW 17.4 % (11.5-14.5) H 04/29/17 14:25 Plt Count 204 K/uL (130-400) 04/29/17 14:25 MPV 9.5 fL (7.2-11.7) 04/29/17 14:25 Neut % (Auto) 65.7 % (50.0-75.0) 04/29/17 14:25 Lymph % (Auto) 17.8 % (20.0-40.0) L 04/29/17 14:25 Lucas % (Auto) 10.1 % (0.0-10.0) H 04/29/17 14:25 Eos % (Auto) 5.9 % (0.0-4.0) H 04/29/17 14:25 Baso % (Auto) 0.5 % (0.0-2.0) 04/29/17 14:25 Neut # 10.2 K/uL (1.8-7.0) H 04/29/17 14:25 Lymph # 2.8 K/uL (1.0-4.3) 04/29/17 14:25 Lucas # 1.6 K/uL (0.0-0.8) H 04/29/17 14:25 Eos # 0.9 K/uL (0.0-0.7) H 04/29/17 14:25 Baso # 0.1 K/uL (0.0-0.2) 04/29/17 14:25 Neutrophils % (Manual) 92 % (50-75) H 04/25/17 06:47 Lymphocytes % (Manual) 6 % (20-40) L 04/25/17 06:47 Monocytes % (Manual) 2 % (0-10) 04/25/17 06:47 Platelet Estimate Normal (NORMAL) 04/25/17 06:47 Hypochromasia (manual) Slight 04/25/17 06:47 Anisocytosis (manual) Slight 04/25/17 06:47 Target Cells Slight 04/25/17 06:47 Ovalocytes Slight 04/25/17 06:47 ESR 46 mm/hr (0-20) H 04/25/17 06:47 PT 10.1 SECONDS (9.7-12.2) 04/20/17 19:43 INR 0.9 04/20/17 19:43 APTT 27 SECONDS (21-34) 04/20/17 19:43 Puncture Site Rra 04/24/17 21:00 pCO2 61 mm/Hg (35-45) H 04/24/17 21:00 pO2 49 mm/Hg (80-100) L 04/24/17 21:00 HCO3 30.5 mmol/L (21-28) H 04/24/17 21:00 ABG pH 7.36 (7.35-7.45) 04/24/17 21:00 ABG Total CO2 36.4 mmol/L (22-28) H 04/24/17 21:00 ABG O2 Saturation 89.5 % (95-98) L 04/24/17 21:00 ABG Base Excess 7.4 mmol/L (-2.0-3.0) H 04/24/17 21:00 ABG Hemoglobin 11.1 g/dL (11.7-17.4) L 04/24/17 21:00 ABG Carboxyhemoglobin 2.4 % (0.5-1.5) H 04/24/17 21:00 POC ABG HHb (Measured) 10.1 % (0.0-5.0) H 04/24/17 21:00 ABG Methemoglobin 1.6 % (0.0-3.0) 04/24/17 21:00 Arik Test A 04/24/17 21:00 A-a O2 Difference 24.0 mm/Hg 04/24/17 21:00 Respiratory Index 0.5 04/24/17 21:00 Hgb O2 Saturation 85.9 % (95.0-98.0) L 04/24/17 21:00 FiO2 21.0 % 04/24/17 21:00 Sodium 137 mmol/L (132-148) 04/29/17 14:25 Potassium 3.9 mmol/L (3.6-5.2) 04/29/17 14:25 Chloride 100 mmol/L (98-107) 04/29/17 14:25 Carbon Dioxide 33 mmol/L (22-30) H 04/29/17 14:25 Anion Gap 8 (10-20) L 04/29/17 14:25 BUN 29 mg/dL (7-17) H 04/29/17 14:25 Creatinine 1.1 MG/DL (0.7-1.2) 04/29/17 14:25 Est GFR ( Amer) > 60 04/29/17 14:25 Est GFR (Non-Af Amer) 51 04/29/17 14:25 POC Glucose (mg/dL) 109 mg/dL (65-110) 04/29/17 16:33 Random Glucose 92 mg/dL (65-105) 04/29/17 14:25 Calcium 7.9 mg/dl (8.6-10.4) L 04/29/17 14:25 Total Bilirubin 0.4 mg/dL (0.2-1.3) 04/20/17 20:03 AST 16 U/L (14-36) 04/20/17 20:03 ALT 17 U/L (9-52) 04/20/17 20:03 Alkaline Phosphatase 99 U/L (38-126) 04/20/17 20:03 C-React Prot High Sens > 15.00 mg/L (1.00-3.00) H 04/25/17 06:47 Total Protein 7.4 g/dL (6.3-8.3) 04/20/17 20:03 Albumin 3.3 g/dL (3.5-5.0) L 04/20/17 20:03 Globulin 4.1 gm/dL (2.2-3.9) H 04/20/17 20:03 Albumin/Globulin Ratio 0.8 (1.0-2.1) L 04/20/17 20:03 Urine Color Yellow (YELLOW) 04/20/17 21:32 Urine Clarity Hazy (Clear) 04/20/17 21:32 Urine pH 6.0 (5.0-8.0) 04/20/17 21:32 Ur Specific [place] 1.019 (1.003-1.030) 04/20/17 21:32 Urine Protein 2+ mg/dL (NEGATIVE) H 04/20/17 21:32 Urine Glucose (UA) Normal mg/dL (Normal) 04/20/17 21:32 Urine Ketones Negative mg/dL (NEGATIVE) 04/20/17 21:32 Urine Blood Negative (NEGATIVE) 04/20/17 21:32 Urine Nitrate Negative (NEGATIVE) 04/20/17:32 Urine Bilirubin Negative (NEGATIVE) 04/20/17 21:32 Urine Urobilinogen Normal mg/dL (0.2-1.0) 04/20/17 21:32 Ur Leukocyte Esterase 1+ Jean/uL (Negative) H 04/20/17 21:32 Urine WBC (Auto) 13 /hpf (0-5) H 04/20/17 21:32 Urine RBC (Auto) 3 /hpf (0-3) 04/20/17 21:32 Ur Squamous Epith Cells 15 /hpf (0-5) H 04/20/17 21:32 Urine Bacteria Rare (<OCC) 04/20/17:32 Blood Type A NEGATIVE 04/20/17 20:45 Antibody Screen Negative 04/20/17 20:45 - Hospital Course Hospital Course: Patient is seen and examined. Denies any complaints , NAD. Seen bt DR Huynh also , dressings changed on the leg wound.Pateint is discharge home today on augmentin and bacid for 10 days. Advised to see DR Huynh on Saturday and do not change or touch the dressings. Verbalized understanding of the instructions given. Discharge Exam - Head Exam Head Exam: NORMAL INSPECTION - Eye Exam Eye Exam: EOMI, Normal appearance, PERRL Pupil Exam: NORMAL ACCOMODATION, PERRL - Respiratory Exam Respiratory Exam: Clear to PA & Lateral, NORMAL BREATHING PATTERN - Cardiovascular Exam Cardiovascular Exam: REGULAR RHYTHM, +S1, +S2 - GI/Abdominal Exam GI & Abdominal Exam: Normal Bowel Sounds Discharge Plan - Discharge Medications Prescriptions: Amoxicillin/Clavulanate [Augmentin 875 MG-125 MG] 1 tab PO BID #20 tab Lactobacillus Acidophilus [Bacid Acidophilus] 1 cap PO DAILY #30 cap predniSONE [predniSONE Tab] 10 mg PO DAILY #10 tab - Follow Up Plan Condition: GUARDED Disposition: HOME/ ROUTINE Instructions: Prednisone (By mouth), Amoxicillin/Clavulanate Potassium (By mouth), Probiotic (By mouth), Diabetic Foot Care (DC), Meal Planning with Diabetes Exchanges (DC), Diabetic Foot Ulcers (DC) Referrals: Fernando Godinez MD [Staff Provider] - Fish Huynh DPM [Staff Provider] -
== END 2017-04-29 19:20 | disposition home or self-care (01) | DRG 287 ==
LOC: C.ER 18:13 → C.9E 20:41 → C.3T 22:30
PROVIDERS: ADMIT Internal Medicine; ATTEND Internal Medicine
PROC: 0HRLXK3 Replacement of Left Lower Leg Skin with Nonautologous Tissue Substitute, Full Thickness, External Approach (ICD-10-PCS; 2017-04-26)
PROC: 0JBP0ZZ Excision of Left Lower Leg Subcutaneous Tissue and Fascia, Open Approach (ICD-10-PCS; principal; 2017-04-26 08:45)
DX: E11.622 Type 2 diabetes mellitus with other skin ulcer (principal); L97.829 Non-pressure chronic ulcer of other part of left lower leg with unspecified severity; E11.65 Type 2 diabetes mellitus with hyperglycemia; E87.5 Hyperkalemia; J44.9 Chronic obstructive pulmonary disease, unspecified; L97.509 Non-pressure chronic ulcer of other part of unspecified foot with unspecified severity; E11.628 Type 2 diabetes mellitus with other skin complications; L03.116 Cellulitis of left lower limb; B96.5 Pseudomonas (aeruginosa) (mallei) (pseudomallei) as the cause of diseases classified elsewhere; F11.20 Opioid dependence, uncomplicated; W18.30XA Fall on same level, unspecified, initial encounter; E78.00 Pure hypercholesterolemia, unspecified; I10 Essential (primary) hypertension; K59.00 Constipation, unspecified; F17.210 Nicotine dependence, cigarettes, uncomplicated; I69.334 Monoplegia of upper limb following cerebral infarction affecting left non-dominant side; Z79.4 Long term (current) use of insulin

== ENCOUNTER 2017-06-17 15:27 | Inpatient (IN) | payer MEDICAID ==
[2017-06-17 15:27] VITALS: BMI 42.7
--- NOTE | 2017-06-17 15:51 | C.PDOC ---
History Of Present Illness <Viky Bobo - Last Filed: 06/17/17 15:40> <Jennifer Gaxiola - Last Filed: 06/17/17 18:30> 57 yr old female with PMHx of diabetes and HTN, sent in by podiatry presents to the ER with a non healing ulcer to the distal left leg. Patient states she failed outpatient oral antibiotics. Reports pain to the leg. Denies fever, nausea, vomiting, weakness or numbness. (Jennifer Gaxiola) <Viky Bobo - Last Filed: 06/17/17 15:40> History Per: Patient History/Exam Limitations: no limitations Onset/Duration Of Symptoms: Days Current Symptoms Are (Timing): Still Present <Jennifer Gaxiola - Last Filed: 06/17/17 18:30> Time Seen by Provider: 06/17/17 16:20 Chief Complaint (Nursing): Abnormal Skin Integrity Past Medical History - Medical History PMH: Anxiety (NO MED), Arthritis, Bronchitis, Diabetes, HTN, Hypercholesterolemia, Migraine Denies: Chronic Kidney Disease Family History: States: Unknown Family Hx - Social History Hx Tobacco Use: Yes Hx Alcohol Use: No Hx Substance Use: Yes (on methadone 90 mg po) - Immunization History Hx Tetanus Toxoid Vaccination: Yes Hx Influenza Vaccination: Yes Hx Pneumococcal Vaccination: Yes <Viky Bobo - Last Filed: 06/17/17 15:40> Reviewed: Historical Data, Nursing Documentation, Vital Signs Family History: States: No Known Family Hx <Jennifer Gaxiola - Last Filed: 06/17/17 18:30> Vital Signs: Last Vital Signs Temp 98.6 F 06/17/17 18:17 Pulse 109 H 06/17/17 18:17 Resp 20 06/17/17 18:17 BP 141/81 06/17/17 18:17 Pulse Ox 99 06/17/17 18:17 - [facility] Procedures ASSISTANCE WITH RESPIRATORY VENTILATION, 24-96 HRS, CPAP (11/25/16) EXCISION OF L LOW LEG SUBCU/FASCIA, OPEN APPROACH (04/20/17) REPLACE L LOW LEG SKIN W NONAUT SUB, FULL THICK, [employer] (04/20/17) VENOUS CATHETERIZATION NEC (04/07/14) Review Of Systems Constitutional: Negative for: Fever Gastrointestinal: Negative for: Nausea, Vomiting Musculoskeletal: Positive for: Leg Pain (Left leg pain and ulcer ) Neurological: Negative for: Weakness, Numbness <Jennifer Gaxiola - Last Filed: 06/17/17 18:30> Physical Exam - Physical Exam Appears: Non-toxic, No Acute Distress, Other ((+) Overweight ) Skin: Warm, Dry Head: Atraumatic, Normacephalic Oral Mucosa: Moist Chest: Symmetrical, No Tenderness Cardiovascular: Rhythm Regular, No Murmur Respiratory: Other ((+) Bibasilar crackles) Gastrointestinal/Abdominal: Normal Exam, Soft, No Tenderness, No Guarding, No Rebound Extremity: No Calf Tenderness, Other ((+) Distal leg leg, proxmitly 6x6cm shallow ulcer with mild surrounding erythema. Minimal bilateral pitting edema. ) Neurological/Psych: Oriented x3, Normal Speech, Normal Motor <Jennifer Gaxiola - Last Filed: 06/17/17 18:30> ED Course And Treatment O2 Sat by Pulse Oximetry: 93 <Viky Bobo - Last Filed: 06/17/17 15:40> - Laboratory Results Result Diagrams: 06/17/17 17:36 06/17/17 17:36 <Jennifer Gaxiola - Last Filed: 06/17/17 18:30> Medical Decision Making <Viky Bobo - Last Filed: 06/17/17 15:40> <Jennifer Gaxiola - Last Filed: 06/17/17 18:30> Medical Decision Making: PLAN: * CXR * CBC * CMP * Zoysn IVPB NOTE: pt sent for admission for iv antibiotics by Dr Huynh; pt has been on multiple po antibiotic regimens with no improvement. discussed with podiatry resident; will start pt on zosyn. discussed with Dr Godinez. (Jennifer Gaxiola) Disposition <Viky Bobo - Last Filed: 06/17/17 15:40> Discussed With : Fernando Godinez Doctor Will See Patient In The: Hospital - Disposition Disposition Time: 17:33 <Jennifer Gaxiola - Last Filed: 06/17/17 18:30> - Disposition Condition: STABLE Forms: [facility] (Sinhala) - Clinical Impression Clinical Impression: Diabetic leg ulcer <Viky Bobo - Last Filed: 06/17/17 15:40> - PA / OIL PIPE INSPECTOR / Resident Statement MD/DO has reviewed & agrees with the documentation as recorded. - Scribe Statement The provider has reviewed the documentation as recorded by the Scribe <Jennifer Gaxiola - Last Filed: 06/17/17 18:30> - Scribe Statement Nathaly Castro All medical record entries made by the Scribe were at my direction and personally dictated by me. I have reviewed the chart and agree that the record accurately reflects my personal performance of the history, physical exam, medical decision making, and the department course for this patient. I have also personally directed, reviewed, and agree with the discharge instructions and disposition. (Jennifer Gaxiola) Decision To Admit <Viky Bobo - Last Filed: 06/17/17 15:40> - Pt Status Changed To: Hospital Disposition Of: Inpatient - Admit Certification Admit to Inpatient:: After my assessment, the patient will require hospitalization for at least two midnights. This is because of the severity of symptoms shown, intensity of services needed, and/or the medical risk in this patient being treated as an outpatient. - InPatient: Physician Admission Certification: I certify that this patient requires 2 or more midnights of care for the following reason:: for treatment of diabletic leg ulcer; pt failied outpatient po treatment. - . Bed Request Type: Regular Admitting Physician: Fernando Godinez <Jennifer Gaxiola - Last Filed: 06/17/17 18:30> - . Patient Diagnosis: Diabetic leg ulcer
[2017-06-17] MEDS ORDERED: Piperacillin/Tazobact 3.375 GM in Sodium Chloride 100 ML IVPB STA (17:30)
[2017-06-17 17:39] LABS: BASO # 0.1 K/uL (0.0-0.2); BASO % 0.6 % (0.0-2.0); EOS # 0.3 K/uL (0.0-0.7); EOS % 3.6 % (0.0-4.0); HEMATOCRIT 36.8 % (34.0-47.0); LYMPH # 2.2 K/uL (1.0-4.3); LYMPH % 25.3 % (20.0-40.0); MEAN CELL VOLUME 73.7 fL (81.0-99.0); MEAN CORPUSCULAR HEMOGLOBIN 22.5 pg (27.0-31.0); MEAN CORPUSCULAR HGB CONC 30.6 g/dL (33.0-37.0); MEAN PLATELET VOLUME 9.4 fL (7.2-11.7); MONO # 0.6 K/uL (0.0-0.8); MONO % 7.2 % (0.0-10.0); NRBC % 0.1 % (0.0-2.0); RED CELL DISTRIBUTION WIDTH 16.1 % (11.5-14.5); WHITE BLOOD COUNT 8.9 K/uL (4.8-10.8)
[2017-06-17] MEDS ORDERED: Piperacillin/Tazobact 3.375 gm 100 ML IVPB ONE (17:50)
[2017-06-17 18:01] LABS: CHLORIDE 95 mmol/L (98-107); SODIUM 141 mmol/L (132-148)
[2017-06-17 18:02] LABS: POTASSIUM 3.7 mmol/L (3.6-5.2)
[2017-06-17 18:04] LABS: ALB/GLOB RATIO 0.8 (1.0-2.1); ALKALINE PHOSPHATASE 113 U/L (38-126); ALT/SGPT 29 U/L (9-52); AST/SGOT 17 U/L (14-36); BILIRUBIN,TOTAL 0.5 mg/dL (0.2-1.3); BLOOD UREA NITROGEN 10 mg/dL (7-17); CARBON DIOXIDE 36 mmol/L (22-30); GFR AFRICAN-AMERICAN > 60; TOTAL PROTEIN 7.3 g/dL (6.3-8.3)
[2017-06-17 18:05] LABS: CALCIUM 8.1 mg/dl (8.6-10.4); GLUCOSE,RANDOM 97 mg/dL (65-105)
--- NOTE | 2017-06-17 18:30 | RAD ---
HISTORY: SOB COMPARISON: Chest x-ray performed 04/20/17 TECHNIQUE: Chest PA and lateral FINDINGS: Examination limited by habitus. LUNGS: Prominent position markings may be chronic, however mild superimposed infection or edema are not excluded. Correlate clinically. Please note that chest x-ray has limited sensitivity for the detection of pulmonary masses. PLEURA: No significant pleural effusion identified. No definite pneumothorax . CARDIOVASCULAR: Heart size appears within normal limits. Mildly ectatic aorta. OSSEOUS STRUCTURES: Degenerative changes of the spine and shoulders. VISUALIZED UPPER ABDOMEN: Unremarkable. OTHER FINDINGS: None. IMPRESSION: Prominent position markings may be chronic, however mild superimposed infection or edema are not excluded. Correlate clinically.
--- NOTE | 2017-06-18 00:23 | CP.PCM.HP ---
History of Present Illness - History of Present Illness History of Present Illness: 57 Y/O WITH L LEG ULCER NOW IT IS WORSENING, AND DR CURIEL REFERRED HER TO ER, PAIN L LEG, NO FEVER, COUGH, WHEEZING Present on Admission - Present on Admission Any Indicators Present on Admission: Yes History of DVT/PE: No History of Uncontrolled Diabetes: Yes Urinary Catheter: No Decubitus Ulcer Present: No Review of Systems - Review of Systems Systems not reviewed;Unavailable: Respiratory Distress - Constitutional Constitutional: Chills, Headache, Malaise, Night Sweats, Snoring - EENT Nose/Mouth/Throat: Nasal Congestion, Nasal Discharge - Cardiovascular Cardiovascular: Dyspnea - Respiratory Respiratory: Cough, Dyspnea, Snoring - Gastrointestinal Gastrointestinal: Belching, Bloating - Musculoskeletal Musculoskeletal: Arthralgias - Integumentary Integumentary: Dry Skin, Rash, Skin Pain, Wounds - Psychiatric Psychiatric: Anhedonia, Anxiety, Behavioral Changes, Depression, Difficulty Concentrating, Hopelessness, Irritability Past Patient History - Infectious Disease Hx of Infectious Diseases: None - Past Medical History & Family History Past Medical History?: Yes - Past Social History Smoking Status: Heavy Smoker > 10 Cigarettes Daily - CARDIAC Hx Hypercholesterolemia: Yes Hx Hypertension: Yes - PULMONARY Hx Bronchitis: Yes - NEUROLOGICAL Hx Migraine: Yes - HEENT Hx HEENT Problems: Yes Other/Comment: wears prescription eyeglasses - RENAL Hx Chronic Kidney Disease: No - ENDOCRINE/METABOLIC Hx Endocrine Disorders: Yes Hx Diabetes Mellitus Type 1: Yes - HEMATOLOGICAL/ONCOLOGICAL Hx Blood Disorders: No Hx Blood Transfusions: No Hx Blood Transfusion Reaction: No - INTEGUMENTARY Hx Dermatological Problems: No - MUSCULOSKELETAL/RHEUMATOLOGICAL Hx Arthritis: Yes - GASTROINTESTINAL Hx Gastrointestinal Disorders: Yes Hx Constipation: Yes - GENITOURINARY/GYNECOLOGICAL Hx Genitourinary Disorders: No - PSYCHIATRIC Hx Anxiety: Yes (NO MED) Hx Substance Use: Yes (on methadone 90 mg po) - SURGICAL HISTORY Hx Surgeries: Yes Hx Section: Yes Other/Comment: BOTH LEGS SKIN GRAFT - ANESTHESIA Hx Anesthesia: Yes Hx Anesthesia Reactions: No Hx Malignant Hyperthermia: No Meds Allergies/Adverse Reactions: Allergies Allergy/AdvReac Type Severity Reaction Status Date / Time No Known Allergies Allergy Verified 06/17/17 15:31 Physical Exam - Constitutional Appears: Non-toxic, No Acute Distress, Chronically Ill - Head Exam Head Exam: ATRAUMATIC, NORMAL INSPECTION, NORMOCEPHALIC - Eye Exam Eye Exam: EOMI, Normal appearance, PERRL Pupil Exam: NORMAL ACCOMODATION - ENT Exam ENT Exam: Mucous Membranes Moist, Normal Exam, Normal Oropharynx - Neck Exam Neck exam: Positive for: Normal Inspection - Respiratory Exam Respiratory Exam: Clear to Auscultation Bilateral, Rhonchi, NORMAL BREATHING PATTERN - Cardiovascular Exam Cardiovascular Exam: Tachycardia, REGULAR RHYTHM, +S1, +S2 - GI/Abdominal Exam GI & Abdominal Exam: Normal Bowel Sounds - Rectal Exam Rectal Exam: NORMAL INSPECTION - Exam Exam: NORMAL INSPECTION - Back Exam Back exam: NORMAL INSPECTION - Neurological Exam Neurological exam: Abnormal Gait, Alert, CN II-XII Intact, Oriented x3 - Skin Skin Exam: Dry, Rash Results - Vital Signs Recent Vital Signs: Last Vital Signs Temp 98.6 F 06/17/17 18:17 Pulse 88 06/17/17 22:01 Resp 20 06/17/17 22:01 BP 135/85 06/17/17 22:01 Pulse Ox 100 06/17/17 22:01 - Labs Result Diagrams: 06/17/17 17:36 06/17/17 17:36 Assessment & Plan (1) COPD (chronic obstructive pulmonary disease) Status: Chronic Priority: Low (2) Diabetic leg ulcer Status: Acute Priority: High (3) HTN (hypertension) Status: Chronic (4) Uncontrolled diabetes mellitus Status: Chronic Priority: Medium
[2017-06-18] MEDS ORDERED: Tramadol 25 mg PO STA (01:13)
[2017-06-18] MEDS: (Novolog) Insulin Aspart, Recombinant 100 u/ml 10 ml vial SC SCH ×4 (08:23→22:17)
--- NOTE | 2017-06-18 09:29 | CP.PCM.CON ---
History of Present Illness - History of Present Illness History of Present Illness: 56 year old female with PMHx including DM, HTN, and CVA who was seen at bedside this morning concerning left leg wound. Pt was sent by her typing office worker Dr. Huynh who suggested she come to the ED. She admits that she has tenderness to the left leg. Shehas been seeing Dr. Huynh at the office and has been cleaning and applying dressing. Denies f/n/v/c/sob/cp. Denies any other pedal complaints. Past Patient History - Infectious Disease Hx of Infectious Diseases: None - Past Medical History & Family History Past Medical History?: Yes - Past Social History Smoking Status: Heavy Smoker > 10 Cigarettes Daily - CARDIAC Hx Cardiac Disorders: Yes Hx Hypercholesterolemia: Yes Hx Hypertension: Yes - PULMONARY Hx Respiratory Disorders: Yes Hx Bronchitis: Yes - NEUROLOGICAL Hx Neurological Disorder: Yes Hx Migraine: Yes - HEENT Hx HEENT Problems: Yes Other/Comment: wears prescription eyeglasses - RENAL Hx Chronic Kidney Disease: No - ENDOCRINE/METABOLIC Hx Endocrine Disorders: Yes Hx Diabetes Mellitus Type 1: Yes - HEMATOLOGICAL/ONCOLOGICAL Hx Blood Disorders: No Hx Blood Transfusions: No Hx Blood Transfusion Reaction: No - INTEGUMENTARY Hx Dermatological Problems: No - MUSCULOSKELETAL/RHEUMATOLOGICAL Hx Musculoskeletal Disorders: Yes Hx Arthritis: Yes Hx Falls: No - GASTROINTESTINAL Hx Gastrointestinal Disorders: Yes Hx Constipation: Yes - GENITOURINARY/GYNECOLOGICAL Hx Genitourinary Disorders: No - PSYCHIATRIC Hx Psychophysiologic Disorder: Yes Hx Anxiety: Yes (NO MED) Hx Substance Use: Yes (on methadone 90 mg po) - SURGICAL HISTORY Hx Surgeries: Yes Hx Section: Yes Other/Comment: BOTH LEGS SKIN GRAFT - ANESTHESIA Hx Anesthesia: Yes Hx Anesthesia Reactions: No Hx Malignant Hyperthermia: No Meds Allergies/Adverse Reactions: Allergies Allergy/AdvReac Type Severity Reaction Status Date / Time No Known Allergies Allergy Verified 06/17/17 15:31 - Medications Medications: Current Medications Enoxaparin Sodium (Lovenox) 40 mg SC DAILY [facility] Insulin Aspart (Novolog) 0 unit SC ACHS [facility] PRN Reason: Protocol Last Admin: 06/18/17 08:23 Dose: 2 unit Physical Exam - Constitutional Appears: Non-toxic, No Acute Distress - Extremities Exam Additional comments: Left lower extremity focused exam: Vasc: DP and PT pulses are palpable, skin temp runs warm to cool, cap refill < 3 sec to all digits, no pedal edema noted Derm: full thickness ulceration is noted to distal aspect of leg measures approximately 5 cm by 5 cm by 0.1 cm, wound appears mixed fibro-granular base, no malodor, no surrounding erythema, no ascending cellulitis, no purulence, slight serous drainage is noted, no fluctuance, no underming, no probe to bone noted. Neuro: pedal sensation slightly diminished Ortho: slight tenderness noted on palpation of wound bed and border - Neurological Exam Neurological exam: Alert, Oriented x3 - Psychiatric Exam Psychiatric exam: Normal Affect Results - Vital Signs Recent Vital Signs: Last Vital Signs Temp 98.8 F 06/18/17 06:00 Pulse 91 H 06/18/17 06:00 Resp 20 06/18/17 02:46 BP 120/77 06/18/17 01:45 Pulse Ox 95 06/18/17 02:46 - Labs Result Diagrams: 06/17/17 17:36 06/18/17 11:54 Labs: Laboratory Results - last 24 hr 06/18/17 06/18/17 02:03 07:10 POC Glucose (mg/dL) 211 H 230 H Assessment & Plan - Assessment and Plan (Free Text) Assessment: 56 year old female with chronic non-healing ulceration of left leg Plan: Patient examined and evaluated Discussed with attending Dr. Huynh Chart, labs, vitals reviewed Wound cleansed with sterile normal saline Wound dressed with xeroform, DSD Wound culture pending Continue IV abx Full WBAT to left lower ext. Patient to OR at 9:00 am for wound debridement with application of graft Medical optimization needed Podiatry will continue to monitor closely while patient in house
--- NOTE | 2017-06-18 11:19 | CP.PCM.PN ---
Subjective - Date & Time of Evaluation Date of Evaluation: 06/18/17 Time of Evaluation: 11:00 - Subjective Subjective: Pt seen and examined , lathargic,arousable, spo2 90-92 % with 2 lit on o2 Pt use CPAP at home Hypercapnia ? pt refused ABG will Place patient on BIPAP Objective - Vital Signs/Intake and Output Vital Signs (last 24 hours): Temp Pulse Resp BP Pulse Ox 99.9 F H 104 H 25 H 131/79 90 L 06/18/17 10:30 06/18/17 10:30 06/18/17 10:30 06/18/17 10:30 06/18/17 10:30 Intake and Output: 06/18/17 06/18/17 06:59 18:59 Intake Total 810 Output Total 0 Balance 810 - Medications Medications: Current Medications Amlodipine Besylate (Norvasc) 10 mg PO DAILY [facility] Carvedilol (Coreg) 3.125 mg PO BID [facility] Enoxaparin Sodium (Lovenox) 40 mg SC DAILY [facility] Insulin Aspart (Novolog) 0 unit SC ACHS [facility] PRN Reason: Protocol Last Admin: 06/18/17 08:23 Dose: 2 unit Insulin Aspart (Novolog Mix 70/30 (70/30 Units/Ml)) 36 units SC QPM [facility] Losartan Potassium (Cozaar) 50 mg PO DAILY [facility] Rosuvastatin Calcium (Crestor) 10 mg PO HS [facility] - Constitutional Appears: Other (latargic ) - Respiratory Exam Respiratory Exam: Decreased Breath Sounds, Prolonged Expiratory Phase - Cardiovascular Exam Cardiovascular Exam: REGULAR RHYTHM, +S1, +S2 Assessment and Plan - Assessment and Plan (Free Text) Assessment: A/P 57 yr ol dfemale admitted for fever, wound LE spo2 90-92 % on 3 lit nasal canula Pt use C PAP AT HOME Pt refused abg , will place patient on Bipap BUN/CR, elevated since admission IVF @100 ml/hr and BMP in am The above plan discussed with mukesh Kirk agrees with plan
[2017-06-18] MEDS: Enoxaparin 40 mg Syringe SC SCH (11:49)
[2017-06-18 12:18] LABS: POTASSIUM 4.3 mmol/L (3.6-5.2)
[2017-06-18 12:21] LABS: ALB/GLOB RATIO 0.7 (1.0-2.1); BILIRUBIN,TOTAL 0.5 mg/dL (0.2-1.3); CALCIUM 7.8 mg/dl (8.6-10.4); TOTAL PROTEIN 6.6 g/dL (6.3-8.3)
[2017-06-18] MEDS ORDERED: Sodium Chloride 0.45% 1,000 ML IV SCH (12:45)
[2017-06-18] MEDS: Methadone 40 mg Tab PO SCH (14:08)
[2017-06-18] MEDS: Piperacill/Tazo 2.25gm in Dex 2.25 GM/50 ML BAG IVPB SCH ×2 (14:09→22:16)
--- NOTE | 2017-06-18 16:17 | CP.PCM.CON ---
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 Patient reports weeping discharge from the wound and recent fever of 103 . Patient was being followed by Dr. Huynh outpatient but failed outpatient therapy and was advised admission. PATIENT WAS HOSPITALIZED AT [facility] IN APRIL 2017 X 9 DAYS AND TREATED WITH iv ANTIBIOTICS FOLLOWED BY [facility]. Patient's left leg ulcer wound cultures were positive for Pseudomonas aeruginosa /and Enterococcus faecalis during that admission. Patient is presently started on IV zOSYN 3.375 . PATIENT ALSO HAS ELEVATED CREATININE OF 1.7/bun OF 24. PATIENT IS ON METHADONE 150 MG PER DAY REPORTED BY THE PATIENT. INFECTIOUS DISEASE CONSULTATION REQUESTED BY pmd FOR NONHEALING LEFT LEG WOUND. ALLERGY; NKA. PMH: Anxiety (NO MED), Arthritis, Bronchitis, Diabetes, HTN, Hypercholesterolemia, Migraine Surgical History: No Surg Hx - [facility] Procedures ASSISTANCE WITH RESPIRATORY VENTILATION, 24-96 HRS, CPAP (11/25/16) VENOUS CATHETERIZATION NEC (04/07/14) Family History: States: Unknown Family Hx - Social History Hx Tobacco Use: Yes Hx Alcohol Use: No Hx Substance Use: Yes (on methadone 90 mg po) - Immunization History Hx Tetanus Toxoid Vaccination: Yes Hx Influenza Vaccination: Yes Hx Pneumococcal Vaccination: Yes Review of Systems - Constitutional Constitutional: Chills, Fever - EENT Nose/Mouth/Throat: Dry Mouth. absent: Mouth Lesions - Cardiovascular Cardiovascular: Leg Edema (LEFT LEG EDEMA), Leg Ulcers (LEFT LOWER LEG NONHEALING ULCER WITH SEROSANGUINEOUS DISCHARGE.) - Respiratory Respiratory: absent: Cough, Dyspnea - Gastrointestinal Gastrointestinal: absent: Diarrhea, Nausea, Vomiting - Genitourinary Genitourinary: absent: Dysuria, Hematuria - Neurological Neurological: absent: Headaches - Psychiatric Psychiatric: Depression - Hematologic/Lymphatic Hematologic: As Per HPI. absent: Lymphadenopathy Past Patient History - Infectious Disease Hx of Infectious Diseases: None - Past Medical History & Family History Past Medical History?: Yes - Past Social History Smoking Status: Heavy Smoker > 10 Cigarettes Daily - CARDIAC Hx Cardiac Disorders: Yes Hx Hypercholesterolemia: Yes Hx Hypertension: Yes - PULMONARY Hx Respiratory Disorders: Yes Hx Bronchitis: Yes - NEUROLOGICAL Hx Neurological Disorder: Yes Hx Migraine: Yes - HEENT Hx HEENT Problems: Yes Other/Comment: wears prescription eyeglasses - RENAL Hx Chronic Kidney Disease: No - ENDOCRINE/METABOLIC Hx Endocrine Disorders: Yes Hx Diabetes Mellitus Type 1: Yes - HEMATOLOGICAL/ONCOLOGICAL Hx Blood Disorders: No Hx Blood Transfusions: No Hx Blood Transfusion Reaction: No - INTEGUMENTARY Hx Dermatological Problems: No - MUSCULOSKELETAL/RHEUMATOLOGICAL Hx Musculoskeletal Disorders: Yes Hx Arthritis: Yes Hx Falls: No - GASTROINTESTINAL Hx Gastrointestinal Disorders: Yes Hx Constipation: Yes - GENITOURINARY/GYNECOLOGICAL Hx Genitourinary Disorders: No - PSYCHIATRIC Hx Psychophysiologic Disorder: Yes Hx Anxiety: Yes (NO MED) Hx Substance Use: Yes (on methadone 90 mg po) - SURGICAL HISTORY Hx Surgeries: Yes Hx Section: Yes Other/Comment: BOTH LEGS SKIN GRAFT - ANESTHESIA Hx Anesthesia: Yes Hx Anesthesia Reactions: No Hx Malignant Hyperthermia: No Meds Allergies/Adverse Reactions: Allergies Allergy/AdvReac Type Severity Reaction Status Date / Time No Known Allergies Allergy Verified 06/17/17 15:31 - Medications Medications: Current Medications Amlodipine Besylate (Norvasc) 10 mg PO DAILY [facility] Carvedilol (Coreg) 3.125 mg PO BID [facility] Enoxaparin Sodium (Lovenox) 40 mg SC DAILY [facility] Last Admin: 06/18/17 11:49 Dose: 40 mg Piperacillin Sod/Tazobactam Sod (Zosyn 2.25 Gm Iv Premix) 2.25 gm in 50 mls @ 100 mls/hr IVPB Q8 [facility] Last Admin: 06/18/17 14:09 Dose: 100 mls/hr Clindamycin Phosphate 300 mg/ (Sodium Chloride) 52 mls @ 104 mls/hr IVPB Q8 [facility] Sodium Chloride (Sodium Chloride 0.45%) 1,000 mls @ 50 mls/hr IV .Q20H [facility] Last Admin: 06/18/17 13:01 Dose: 50 mls/hr Insulin Aspart (Novolog) 0 unit SC ACHS [facility] PRN Reason: Protocol Last Admin: 06/18/17 12:25 Dose: 3 unit Insulin Aspart (Novolog Mix 70/30 (70/30 Units/Ml)) 36 units SC QPM [facility] Losartan Potassium (Cozaar) 50 mg PO DAILY [facility] Last Admin: 06/18/17 11:49 Dose: 50 mg Methadone HCl (Methadose) 120 mg PO DAILY [facility] Last Admin: 06/18/17 14:08 Dose: 120 mg Methadone HCl (Methadone) 30 mg PO DAILY [facility] Last Admin: 06/18/17 14:08 Dose: 30 mg Methadone HCl (Methadone) 5 mg PO DAILY [facility] Last Admin: 06/18/17 14:08 Dose: 5 mg Rosuvastatin Calcium (Crestor) 10 mg PO [facility] Physical Exam - Constitutional Appears: No Acute Distress - Head Exam Head Exam: NORMAL INSPECTION - Eye Exam Eye Exam: EOMI, PERRL - ENT Exam ENT Exam: Normal Oropharynx - Neck Exam Neck exam: Positive for: Normal Inspection - Respiratory Exam Respiratory Exam: Decreased Breath Sounds - Cardiovascular Exam Cardiovascular Exam: REGULAR RHYTHM, +S1, +S2 - GI/Abdominal Exam GI & Abdominal Exam: Normal Bowel Sounds, Soft. absent: Organomegaly - Extremities Exam Extremities exam: Positive for: calf tenderness (LEFT CALF TENDERNESS), pedal edema, tenderness (AROUND THE WOUND.), pedal pulses present (PRESENT.) - Neurological Exam Neurological exam: Alert, CN II-XII Intact, Oriented x3, Reflexes Normal - Psychiatric Exam Psychiatric exam: Normal Mood - Skin Skin Exam: Normal Color, Warm Results - Vital Signs Recent Vital Signs: Last Vital Signs Temp 98.7 F 06/18/17 11:53 Pulse 104 H 06/18/17 10:30 Resp 25 H 06/18/17 10:30 BP 131/79 06/18/17 10:30 Pulse Ox 90 L 06/18/17 10:30 - Labs Result Diagrams: 06/17/17 17:36 06/18/17 11:54 Labs: Laboratory Results - last 24 hr 06/18/17 06/18/17 06/18/17 02:03 07:10 11:53 Sodium Potassium Chloride Carbon Dioxide Anion Gap BUN Creatinine Est GFR ( Amer) Est GFR (Non-Af Amer) POC Glucose (mg/dL) 211 H 230 H 258 H Random Glucose Calcium Total Bilirubin AST ALT Alkaline Phosphatase Total Protein Albumin Globulin Albumin/Globulin Ratio 06/18/17 11:54 Sodium 137 Potassium 4.3 Chloride 93 L Carbon Dioxide 34 H Anion Gap 14 BUN 24 H Creatinine 1.7 H Est GFR ( Amer) 37 Est GFR (Non-Af Amer) 31 POC Glucose (mg/dL) Random Glucose 251 H Calcium 7.8 L Total Bilirubin 0.5 AST 20 ALT 26 Alkaline Phosphatase 89 Total Protein 6.6 Albumin 2.8 L Globulin 3.8 Albumin/Globulin Ratio 0.7 L - Imaging and Cardiology Chest x-ray Status: Report reviewed by me (SEE REPORT.) Assessment & Plan (1) Diabetic ulcer of lower extremity Status: Acute (2) Cellulitis Status: Acute (3) COPD (chronic obstructive pulmonary disease) Status: Chronic Priority: Low (4) HTN (hypertension) Status: Chronic (5) Acute prerenal azotemia Status: Acute (6) Uncontrolled diabetes mellitus Status: Chronic Priority: Medium - Assessment and Plan (Free Text) Plan: PANCULTURES ESR,CRP. CONTINUE iv ZOSYN 2.25 GRAMS EVERY 8 HOURLY 06/17/17 ADD IV CLEOCIN 300 MG iv PIGGYBACK EVERY 8 HOURLY.06/17/17. MONITOR RENAL FUNCTIONS CLOSELY. FOLLOW-UP WOUND CULTURES TO ADJUST ANTIBIOTICS. DEBRIDEMENT AND LOCAL WOUND CARE PER PODIATRY. WILL FOLLOW ALONG WITH YOU WHILE PATIENT IN HOSPITAL.
[2017-06-18] MEDS: Clindamycin 300 MG in Sodium Chloride 0.9% 50 ML IVPB SCH ×2 (16:24→22:58)
[2017-06-18] MEDS: (Novolog Mix 70/30) Insulin Aspart/Insulin Aspar 100 units/ml SC SCH (17:23)
[2017-06-18] MEDS: Sodium Chloride 0.9% 1,000 ML IV SCH (17:28)
--- NOTE | 2017-06-18 21:11 | CP.PCM.PN ---
Subjective - Date & Time of Evaluation Date of Evaluation: 06/18/17 Time of Evaluation: 09:07 - Subjective Subjective: Pt seen this pm for non healing wound left which became infected . Pt is non compliant with medical follow up and has has many co-morbidities . Objective - Vital Signs/Intake and Output Vital Signs (last 24 hours): Temp Pulse Resp BP Pulse Ox 99.2 F 96 H 20 90/68 L 96 06/18/17 17:01 06/18/17 17:01 06/18/17 17:01 06/18/17 17:01 06/18/17 17:01 Intake and Output: 06/18/17 06/19/17 18:59 06:59 Intake Total 490 Balance 490 - Medications Medications: Current Medications Amlodipine Besylate (Norvasc) 10 mg PO DAILY [facility] Carvedilol (Coreg) 3.125 mg PO BID [facility] Last Admin: 06/18/17 17:22 Dose: Not Given Enoxaparin Sodium (Lovenox) 40 mg SC DAILY [facility] Last Admin: 06/18/17 11:49 Dose: 40 mg Piperacillin Sod/Tazobactam Sod (Zosyn 2.25 Gm Iv Premix) 2.25 gm in 50 mls @ 100 mls/hr IVPB Q8 [facility] Last Admin: 06/18/17 14:09 Dose: 100 mls/hr Clindamycin Phosphate 300 mg/ (Sodium Chloride) 52 mls @ 104 mls/hr IVPB Q8 [facility] Last Admin: 06/18/17 16:24 Dose: 104 mls/hr Sodium Chloride (Sodium Chloride 0.9%) 1,000 mls @ 100 mls/hr IV .Q10H [facility] Last Admin: 06/18/17 17:28 Dose: 100 mls/hr Insulin Aspart (Novolog) 0 unit SC ACHS [facility] PRN Reason: Protocol Last Admin: 06/18/17 17:24 Dose: 1 unit Insulin Aspart (Novolog Mix 70/30 (70/30 Units/Ml)) 36 units SC QPM [facility] Last Admin: 06/18/17 17:23 Dose: 36 units Losartan Potassium (Cozaar) 50 mg PO DAILY [facility] Last Admin: 06/18/17 11:49 Dose: 50 mg Methadone HCl (Methadose) 120 mg PO DAILY [facility] Last Admin: 06/18/17 14:08 Dose: 120 mg Methadone HCl (Methadone) 30 mg PO DAILY [facility] Last Admin: 06/18/17 14:08 Dose: 30 mg Methadone HCl (Methadone) 5 mg PO DAILY [facility] Last Admin: 06/18/17 14:08 Dose: 5 mg Rosuvastatin Calcium (Crestor) 10 mg PO HS [facility] - Labs Labs: 06/18/17 11:54 - Extremities Exam Additional comments: O/ Non-healing leg wound with heavy Gm negative bacterial growth . Calf pain noted left this PM . Vascular status intact . Assessment and Plan - Assessment and Plan (Free Text) Assessment: A/Infected leg wound left Plan: P/ IV antibiotics Venous duplex scan ordered.
--- NOTE | 2017-06-18 23:32 | CP.PCM.PN ---
Subjective - Date & Time of Evaluation Date of Evaluation: 06/18/17 Time of Evaluation: 20:25 - Subjective Subjective: WAS MORE DROWSY, NOW MORE ALERT, NO FEVER, NO COUGH Objective - Vital Signs/Intake and Output Vital Signs (last 24 hours): Temp Pulse Resp BP Pulse Ox 99.2 F 96 H 20 90/68 L 96 06/18/17 17:01 06/18/17 17:01 06/18/17 17:01 06/18/17 17:01 06/18/17 17:01 Intake and Output: 06/18/17 06/19/17 18:59 06:59 Intake Total 490 950 Balance 490 950 - Medications Medications: Current Medications Amlodipine Besylate (Norvasc) 10 mg PO DAILY [facility] Carvedilol (Coreg) 3.125 mg PO BID [facility] Last Admin: 06/18/17 17:22 Dose: Not Given Enoxaparin Sodium (Lovenox) 40 mg SC DAILY [facility] Last Admin: 06/18/17 11:49 Dose: 40 mg Piperacillin Sod/Tazobactam Sod (Zosyn 2.25 Gm Iv Premix) 2.25 gm in 50 mls @ 100 mls/hr IVPB Q8 [facility] Last Admin: 06/18/17 22:16 Dose: 100 mls/hr Clindamycin Phosphate 300 mg/ (Sodium Chloride) 52 mls @ 104 mls/hr IVPB Q8 [facility] Last Admin: 06/18/17 22:58 Dose: 104 mls/hr Sodium Chloride (Sodium Chloride 0.9%) 1,000 mls @ 100 mls/hr IV .Q10H [facility] Last Admin: 06/18/17 17:28 Dose: 100 mls/hr Insulin Aspart (Novolog) 0 unit SC ACHS [facility] PRN Reason: Protocol Last Admin: 06/18/17 22:17 Dose: Not Given Insulin Aspart (Novolog Mix 70/30 (70/30 Units/Ml)) 36 units SC QPM [facility] Last Admin: 06/18/17 17:23 Dose: 36 units Losartan Potassium (Cozaar) 50 mg PO DAILY [facility] Last Admin: 06/18/17 11:49 Dose: 50 mg Methadone HCl (Methadose) 120 mg PO DAILY [facility] Last Admin: 06/18/17 14:08 Dose: 120 mg Methadone HCl (Methadone) 30 mg PO DAILY [facility] Last Admin: 06/18/17 14:08 Dose: 30 mg Methadone HCl (Methadone) 5 mg PO DAILY [facility] Last Admin: 06/18/17 14:08 Dose: 5 mg Rosuvastatin Calcium (Crestor) 10 mg PO HS [facility] Last Admin: 06/18/17 22:17 Dose: 10 mg - Labs Labs: 06/18/17 11:54 - Constitutional Appears: Non-toxic, No Acute Distress - Head Exam Head Exam: ATRAUMATIC, NORMAL INSPECTION, NORMOCEPHALIC - Eye Exam Eye Exam: EOMI, Normal appearance - ENT Exam ENT Exam: Mucous Membranes Moist, Normal Exam - Neck Exam Neck Exam: Normal Inspection - Respiratory Exam Respiratory Exam: Clear to Ausculation Bilateral, NORMAL BREATHING PATTERN - Cardiovascular Exam Cardiovascular Exam: REGULAR RHYTHM, +S1, +S2 - GI/Abdominal Exam GI & Abdominal Exam: Soft, Normal Bowel Sounds - Rectal Exam Rectal Exam: NORMAL INSPECTION - Exam Exam: NORMAL INSPECTION - Extremities Exam Extremities Exam: Full ROM, Normal Capillary Refill - Neurological Exam Neurological Exam: Alert, Awake, CN II-XII Intact, Normal Gait, Oriented x3 Neuro motor strength exam: Left Upper Extremity: 5, Right Upper Extremity: 5, Left Lower Extremity: 5, Right Lower Extremity: 5 - Psychiatric Exam Psychiatric exam: Anxious, Depressed, Flat Affect - Skin Skin Exam: Dry Assessment and Plan (1) COPD (chronic obstructive pulmonary disease) Status: Chronic (2) Diabetic leg ulcer Status: Acute (3) HTN (hypertension) Status: Chronic (4) Uncontrolled diabetes mellitus Status: Chronic
[2017-06-19] MEDS: Sodium Chloride 0.9% 1,000 ML IV SCH ×3 (03:14→21:58)
[2017-06-19] MEDS: Clindamycin 300 MG in Sodium Chloride 0.9% 50 ML IVPB SCH (06:03)
[2017-06-19] MEDS: Piperacill/Tazo 2.25gm in Dex 2.25 GM/50 ML BAG IVPB SCH (06:03)
[2017-06-19 07:07] LABS: CALCIUM 7.2 mg/dl (8.6-10.4); POTASSIUM 4.1 mmol/L (3.6-5.2)
[2017-06-19 07:26] LABS: BASO % 0.3 % (0.0-2.0); EOS # 0.5 K/uL (0.0-0.7); EOS % 4.2 % (0.0-4.0); HEMATOCRIT 36.2 % (34.0-47.0); LYMPH # 0.8 K/uL (1.0-4.3); LYMPH % 7.4 % (20.0-40.0); MEAN CORPUSCULAR HEMOGLOBIN 22.3 pg (27.0-31.0); MEAN CORPUSCULAR HGB CONC 30.2 g/dL (33.0-37.0); MEAN PLATELET VOLUME 9.6 fL (7.2-11.7); MONO # 0.5 K/uL (0.0-0.8); MONO % 4.7 % (0.0-10.0); PLATELET COUNT 176 K/uL (130-400); RED CELL DISTRIBUTION WIDTH 15.9 % (11.5-14.5)
[2017-06-19] MEDS: (Novolog) Insulin Aspart, Recombinant 100 u/ml 10 ml vial SC SCH ×4 (07:55→21:51)
[2017-06-19 09:07] LABS: EOSINOPHIL 4 % (0-4); NEUTROPHIL 80 % (50-75); TOTAL CELLS COUNTED 100
[2017-06-19 09:08] LABS: LARGE PLATELETS PRESENT
--- NOTE | 2017-06-19 09:29 | CP.PCM.PN ---
Addendum entered and electronically signed by Linsey Sanches DPM 06/19/17 14: 00: Discussed with Dr. Huynh and Dr. Silva, wound debridement with application of graft to be rescheduled for June 24 at 7:45 am. Original Note: <Linsey Sanches - Last Filed: 06/19/17 12:09> Subjective - Date & Time of Evaluation Date of Evaluation: 06/19/17 Time of Evaluation: 09:29 - Subjective Subjective: 57 year old female patient was seen this morning as she was taken to a test. Patient NAD, AAOx3. Patient aware that she may be going for a wound debridement tomorrow with graft application. Denies n/v/f/c/sob/cp. Objective - Vital Signs/Intake and Output Vital Signs (last 24 hours): Temp Pulse Resp BP Pulse Ox 99 F 95 H 20 104/67 95 06/19/17 08:26 06/19/17 08:26 06/19/17 08:26 06/19/17 08:26 06/19/17 08:26 Intake and Output: 06/19/17 06/19/17 06:59 18:59 Intake Total 1999 Balance 1999 - Medications Medications: Current Medications Amlodipine Besylate (Norvasc) 10 mg PO DAILY [facility] Carvedilol (Coreg) 3.125 mg PO BID [facility] Enoxaparin Sodium (Lovenox) 40 mg SC DAILY [facility] Last Admin: 06/18/17 11:49 Dose: 40 mg Piperacillin Sod/Tazobactam Sod (Zosyn 2.25 Gm Iv Premix) 2.25 gm in 50 mls @ 100 mls/hr IVPB Q8 [facility] Last Admin: 06/19/17 06:03 Dose: 100 mls/hr Clindamycin Phosphate 300 mg/ (Sodium Chloride) 52 mls @ 104 mls/hr IVPB Q8 [facility] Last Admin: 06/19/17 06:03 Dose: 104 mls/hr Sodium Chloride (Sodium Chloride 0.9%) 1,000 mls @ 100 mls/hr IV .Q10H [facility] Last Admin: 06/19/17 03:14 Dose: Not Given Insulin Aspart (Novolog) 0 unit SC ACHS [facility] PRN Reason: Protocol Last Admin: 06/19/17 07:55 Dose: Not Given Insulin Aspart (Novolog Mix 70/30 (70/30 Units/Ml)) 36 units SC QPM [facility] Last Admin: 06/18/17 17:23 Dose: 36 units Losartan Potassium (Cozaar) 50 mg PO DAILY [facility] Last Admin: 06/18/17 11:49 Dose: 50 mg Methadone HCl (Methadose) 120 mg PO DAILY [facility] Last Admin: 06/18/17 14:08 Dose: 120 mg Methadone HCl (Methadone) 30 mg PO DAILY [facility] Last Admin: 06/18/17 14:08 Dose: 30 mg Methadone HCl (Methadone) 5 mg PO DAILY [facility] Last Admin: 06/18/17 14:08 Dose: 5 mg Rosuvastatin Calcium (Crestor) 10 mg PO HS [facility] Last Admin: 06/18/17 22:17 Dose: 10 mg - Labs Labs: 06/19/17 06:10 06/19/17 06:10 - Constitutional Appears: Well, Non-toxic, No Acute Distress - Extremities Exam Additional comments: dressing c/d/i to LLE - Neurological Exam Neurological Exam: Alert, Awake, Oriented x3 - Psychiatric Exam Psychiatric exam: Normal Affect, Normal Mood Assessment and Plan - Assessment and Plan (Free Text) Assessment: 56 year old female with chronic non-healing ulceration of left leg Plan: Patient seen Discussed with attending Dr. Huynh Wound culture shows gram neg rods Continue IV abx Full WBAT to left lower ext. Patient to OR at 9:00 am for wound debridement with application of graft Medical optimization needed Podiatry will continue to monitor closely while patient in house <Fish Huynh - Last Filed: 06/19/17 18:51> Subjective - Subjective Subjective: pt seen at bedside .Case was discussed with Dr Silva and due to heavy GM neg growth from wound bed best to give additional 4 days iv antibiotics and local care . Objective - Vital Signs/Intake and Output Vital Signs (last 24 hours): Temp Pulse Resp BP Pulse Ox 99.3 F 88 20 94/68 L 97 06/19/17 16:49 06/19/17 16:49 06/19/17 16:49 06/19/17 16:49 06/19/17 16:49 Intake and Output: 06/19/17 06/19/17 06:59 18:59 Intake Total 1999 1040 Balance 1999 1040 - Medications Medications: Current Medications Amlodipine Besylate (Norvasc) 10 mg PO DAILY [facility] Last Admin: 06/19/17 11:08 Dose: 10 mg Carvedilol (Coreg) 3.125 mg PO BID [facility] Last Admin: 06/19/17 17:44 Dose: Not Given Enoxaparin Sodium (Lovenox) 40 mg SC DAILY [facility] Last Admin: 06/19/17 11:08 Dose: 40 mg Sodium Chloride (Sodium Chloride 0.9%) 1,000 mls @ 100 mls/hr IV .Q10H [facility] Last Admin: 06/19/17 13:50 Dose: 100 mls/hr Cefepime HCl (Maxipime Iv 1 Gm Premix) 1 gm in 50 mls @ 100 mls/hr IVPB Q24H [facility] Last Admin: 06/19/17 13:56 Dose: 100 mls/hr Insulin Aspart (Novolog) 0 unit SC ACHS [facility] PRN Reason: Protocol Last Admin: 06/19/17 17:44 Dose: 1 unit Insulin Aspart (Novolog Mix 70/30 (70/30 Units/Ml)) 36 units SC QPM [facility] Last Admin: 06/19/17 17:43 Dose: 36 units Losartan Potassium (Cozaar) 50 mg PO DAILY [facility] Last Admin: 06/18/17 11:49 Dose: 50 mg Methadone HCl (Methadose) 120 mg PO DAILY [facility] Last Admin: 06/19/17 11:07 Dose: 120 mg Methadone HCl (Methadone) 30 mg PO DAILY [facility] Last Admin: 06/19/17 11:08 Dose: 30 mg Methadone HCl (Methadone) 5 mg PO DAILY [facility] Last Admin: 06/19/17 11:08 Dose: 5 mg Rosuvastatin Calcium (Crestor) 10 mg PO HS [facility] Last Admin: 06/18/17 22:17 Dose: 10 mg - Labs Labs: 06/19/17 06:10 06/19/17 06:10 - Extremities Exam Additional comments: wound more granular left leg .Heavy gm Neg. Growth with cellulitis and pain leg.
[2017-06-19 09:54] LABS: RBC URINE 2 /hpf (0-3); URINE BILIRUBIN NEGATIVE (NEGATIVE); URINE BLOOD NEGATIVE (NEGATIVE); URINE COLOR Yellow (YELLOW); URINE GLUCOSE (UA) NORMAL (Normal); URINE KETONE TRACE mg/dL (NEGATIVE); URINE LEUKOCYTE ESTERASE 1+ Leu/uL (Negative); URINE PROTEIN NEGATIVE (NEGATIVE); URINE UROBILINOGEN NORMAL mg/dL (0.2-1.0); WBC URINE 9 /hpf (0-5)
--- NOTE | 2017-06-19 10:21 | US ---
PROCEDURE: Ultrasound of the Kidneys HISTORY: r/o renal disease COMPARISON: Renal ultrasound exam 11/28/2016.. TECHNIQUE: Sonogram of the kidneys. FINDINGS: RIGHT KIDNEY: Measures: 0.7 x 4.4 x 5.2 cm. Normal in size, contour and echogenicity. No stone, solid mass lesion or hydronephrosis visualized. No perinephric fluid collection identified. LEFT KIDNEY: Measures: 11.4 x 5.5 x 6.1 cm. Normal in size, contour and echogenicity. No stone, solid mass lesion or hydronephrosis visualized. No perinephric fluid collection identified. OTHER FINDINGS: None. IMPRESSION: Stable unremarkable bilateral renal ultrasound examination compared to 11/28/2016.
[2017-06-19] MEDS: Methadone 40 mg Tab PO SCH (11:07)
[2017-06-19] MEDS: Enoxaparin 40 mg Syringe SC SCH (11:08)
--- NOTE | 2017-06-19 11:26 | VASCLAB ---
PROCEDURE: Left Lower Extremity Venous Duplex Exam. HISTORY: DVT PRIORS: Last exam 2013, normal. TECHNIQUE: Left common femoral, femoral, popliteal and posterior tibial, peroneal and great saphenous veins were evaluated. Flow was assessed with color Doppler, compressibility, assessment of phasic flow and augmentation response. Report prepared by FADUMO Farooq FINDINGS: LEFT: 1. Common Femoral Vein: 1.1. Compressibility - Fully compressible: Thrombus - None : Flow - Phasic: Augmentation -Normal: Reflux - None. 2. Femoral Vein: 2.1. Compressibility - Fully compressible: Thrombus - None: Flow - Phasic: Augmentation -Normal: Reflux - None. 3. Popliteal Vein: 3.1. Compressibility - Fully compressible: Thrombus - None: Flow - Phasic: Augmentation -Normal: Reflux - None. 4. Posterior Tibial Vein: 4.1. Unable to image, due to swelling. 5. Peroneal Vein: 5.1. Compressibility - Fully compressible: Thrombus - None: Flow - Phasic: Augmentation -Normal: Reflux - None. 6. Great Saphenous Vein: 6.1. Compressibility - Fully compressible: Thrombus - None: Flow - Phasic: Augmentation - Normal: Reflux - None. OTHER FINDINGS: IMPRESSION: 1. Unable to image the left posterior tibial veins, due to swelling. No evidence of deep or superficial vein thrombosis in the remaining veins, of the left lower extremity with excellent venous flow. 2. Normal valve function noted of the left side. Normal venous flow noted in the right common femoral vein.
[2017-06-19] MEDS ORDERED: Sodium Chloride 0.45% 1,000 ML IV SCH (12:15)
--- NOTE | 2017-06-19 12:51 | CP.PCM.PN ---
Subjective - Date & Time of Evaluation Date of Evaluation: 06/19/17 Time of Evaluation: 12:51 - Subjective Subjective: Afebrile, Clinically same. Notified by staff patient has multidrug resistant Pseudomonas aeruginosa in the wound cultures. S-GENTAMICIN, I -CIPRO, R- MERREM. BUN and creatinine elevated -40/2.8. ? ZOSYN Case discussed with staff and Dr. Linsey Mendes /DR. CURIEL podiatry on case. Hold of graft left leg in a.m. Patient will need debridement and repeat wound cultures. PLAN; DC IV Zosyn and Cleocin DC IV cefepime. Microbiology to check for ANEL for colistin.. AVYCAZ In the meantime initiate IV colistin renal dose.06/19/19. Patient for debridement and repeat wound cultures in a.m. as per podiatry. RENAL ON BOARD. FOLLOW-UP RENAL ULTRASOUND CHECK URINE FOR EOSINOPHILS TO RULE OUT INTERSTITIAL NEPHRITIS. Objective - Vital Signs/Intake and Output Vital Signs (last 24 hours): Temp Pulse Resp BP Pulse Ox 99 F 95 H 20 104/67 95 06/19/17 08:26 06/19/17 08:26 06/19/17 08:26 06/19/17 08:26 06/19/17 08:26 Intake and Output: 06/19/17 06/19/17 06:59 18:59 Intake Total 1999 Balance 1999 - Medications Medications: Current Medications Amlodipine Besylate (Norvasc) 10 mg PO DAILY [facility] Last Admin: 06/19/17 11:08 Dose: 10 mg Carvedilol (Coreg) 3.125 mg PO BID [facility] Last Admin: 06/19/17 11:08 Dose: 3.125 mg Enoxaparin Sodium (Lovenox) 40 mg SC DAILY [facility] Last Admin: 06/19/17 11:08 Dose: 40 mg Sodium Chloride (Sodium Chloride 0.9%) 1,000 mls @ 100 mls/hr IV .Q10H [facility] Last Admin: 06/19/17 03:14 Dose: Not Given Cefepime HCl (Maxipime Iv 1 Gm Premix) 1 gm in 50 mls @ 100 mls/hr IVPB Q24H [facility] Insulin Aspart (Novolog) 0 unit SC ACHS [facility] PRN Reason: Protocol Last Admin: 06/19/17 12:00 Dose: Not Given Insulin Aspart (Novolog Mix 70/30 (70/30 Units/Ml)) 36 units SC QPM [facility] Last Admin: 06/18/17 17:23 Dose: 36 units Losartan Potassium (Cozaar) 50 mg PO DAILY [facility] Last Admin: 06/18/17 11:49 Dose: 50 mg Methadone HCl (Methadose) 120 mg PO DAILY [facility] Last Admin: 06/19/17 11:07 Dose: 120 mg Methadone HCl (Methadone) 30 mg PO DAILY [facility] Last Admin: 06/19/17 11:08 Dose: 30 mg Methadone HCl (Methadone) 5 mg PO DAILY [facility] Last Admin: 06/19/17 11:08 Dose: 5 mg Rosuvastatin Calcium (Crestor) 10 mg PO HS [facility] Last Admin: 06/18/17 22:17 Dose: 10 mg - Labs Labs: 06/19/17 06:10 06/19/17 06:10 - Constitutional Appears: No Acute Distress - Head Exam Head Exam: NORMAL INSPECTION - Eye Exam Eye Exam: EOMI, PERRL - ENT Exam ENT Exam: Normal Oropharynx - Neck Exam Neck Exam: Normal Inspection - Respiratory Exam Respiratory Exam: Clear to Ausculation Bilateral - Cardiovascular Exam Cardiovascular Exam: Gallop, REGULAR RHYTHM, +S2 - GI/Abdominal Exam GI & Abdominal Exam: Soft, Normal Bowel Sounds - Extremities Exam Extremities Exam: Calf Tenderness, Pedal Edema, Tenderness (LEFT CALF. CHRONIC ULCER NONHEALING WITH PURULENT DISCHARGE.) - Neurological Exam Neurological Exam: Awake, Oriented x3 - Psychiatric Exam Psychiatric exam: Normal Mood - Skin Skin Exam: Normal Color, Warm Assessment and Plan (1) Diabetic ulcer of lower extremity Status: Acute (2) Cellulitis Status: Acute (3) COPD (chronic obstructive pulmonary disease) Status: Chronic (4) HTN (hypertension) Status: Chronic (5) Acute prerenal azotemia Status: Acute (6) Uncontrolled diabetes mellitus Status: Chronic
[2017-06-19] MEDS ORDERED: Cefepime IV 1 gm in Dextrose 1 GM/50 ML BAG IVPB SCH (13:00)
[2017-06-19] MEDS: (Novolog Mix 70/30) Insulin Aspart/Insulin Aspar 100 units/ml SC SCH (17:43)
[2017-06-19 19:26] LABS: CREATININE, RANDOM URINE 237.3 mg/dL
--- NOTE | 2017-06-19 23:47 | CP.PCM.CON ---
History of Present Illness - History of Present Illness History of Present Illness: pt is seen and exam,ined, full consult is dictated #[id number] Past Patient History - Infectious Disease Hx of Infectious Diseases: None - Past Medical History & Family History Past Medical History?: Yes - Past Social History Smoking Status: Heavy Smoker > 10 Cigarettes Daily - CARDIAC Hx Cardiac Disorders: Yes Hx Hypercholesterolemia: Yes Hx Hypertension: Yes - PULMONARY Hx Respiratory Disorders: Yes Hx Bronchitis: Yes - NEUROLOGICAL Hx Neurological Disorder: Yes Hx Migraine: Yes - HEENT Hx HEENT Problems: Yes Other/Comment: wears prescription eyeglasses - RENAL Hx Chronic Kidney Disease: No - ENDOCRINE/METABOLIC Hx Endocrine Disorders: Yes Hx Diabetes Mellitus Type 1: Yes - HEMATOLOGICAL/ONCOLOGICAL Hx Blood Disorders: No Hx Blood Transfusions: No Hx Blood Transfusion Reaction: No - INTEGUMENTARY Hx Dermatological Problems: No - MUSCULOSKELETAL/RHEUMATOLOGICAL Hx Musculoskeletal Disorders: Yes Hx Arthritis: Yes Hx Falls: No - GASTROINTESTINAL Hx Gastrointestinal Disorders: Yes Hx Constipation: Yes - GENITOURINARY/GYNECOLOGICAL Hx Genitourinary Disorders: No - PSYCHIATRIC Hx Psychophysiologic Disorder: Yes Hx Anxiety: Yes (NO MED) Hx Substance Use: Yes (on methadone 90 mg po) - SURGICAL HISTORY Hx Surgeries: Yes Hx Section: Yes Other/Comment: BOTH LEGS SKIN GRAFT - ANESTHESIA Hx Anesthesia: Yes Hx Anesthesia Reactions: No Hx Malignant Hyperthermia: No Meds Allergies/Adverse Reactions: Allergies Allergy/AdvReac Type Severity Reaction Status Date / Time No Known Allergies Allergy Verified 06/17/17 15:31 - Medications Medications: Current Medications Amlodipine Besylate (Norvasc) 10 mg PO DAILY [facility] Last Admin: 06/19/17 11:08 Dose: 10 mg Carvedilol (Coreg) 3.125 mg PO BID [facility] Last Admin: 06/19/17 17:44 Dose: Not Given Enoxaparin Sodium (Lovenox) 40 mg SC DAILY [facility] Last Admin: 06/19/17 11:08 Dose: 40 mg Sodium Chloride (Sodium Chloride 0.9%) 1,000 mls @ 100 mls/hr IV .Q10H [facility] Last Admin: 06/19/17 21:58 Dose: 100 mls/hr Colistimethate Sodium 150 mg/ (Sodium Chloride) 100 mls @ 200 mls/hr IV Q36H [facility] Insulin Aspart (Novolog) 0 unit SC [facility] PRN Reason: Protocol Last Admin: 06/19/17 21:51 Dose: Not Given Insulin Aspart (Novolog Mix 70/30 (70/30 Units/Ml)) 36 units SC QPM [facility] Last Admin: 06/19/17 17:43 Dose: 36 units Losartan Potassium (Cozaar) 50 mg PO DAILY [facility] Last Admin: 06/18/17 11:49 Dose: 50 mg Methadone HCl (Methadose) 120 mg PO DAILY [facility] Last Admin: 06/19/17 11:07 Dose: 120 mg Methadone HCl (Methadone) 30 mg PO DAILY [facility] Last Admin: 06/19/17 11:08 Dose: 30 mg Methadone HCl (Methadone) 5 mg PO DAILY [facility] Last Admin: 06/19/17 11:08 Dose: 5 mg Rosuvastatin Calcium (Crestor) 10 mg PO HS [facility] Last Admin: 06/19/17 21:50 Dose: 10 mg Results - Vital Signs Recent Vital Signs: Last Vital Signs Temp 99.3 F 06/19/17 16:49 Pulse 88 06/19/17 16:49 Resp 20 06/19/17 16:49 BP 94/68 L 06/19/17 16:49 Pulse Ox 97 06/19/17 16:49 - Labs Result Diagrams: 06/19/17 06:10 06/19/17 06:10 Labs: Laboratory Results - last 24 hr 06/19/17 06/19/17 06/19/17 02:15 06:10 06:10 WBC 11.0 H RBC 4.90 Hgb 10.9 L Hct 36.2 MCV 74.0 L MCH 22.3 L MCHC 30.2 L RDW 15.9 H Plt Count 176 MPV 9.6 Neut % (Auto) 83.4 H Lymph % (Auto) 7.4 L [place] % (Auto) 4.7 Eos % (Auto) 4.2 H Baso % (Auto) 0.3 Neut # 9.1 H Lymph # 0.8 L [place] # 0.5 Eos # 0.5 Baso # 0.0 Neutrophils % (Manual) 80 H Band Neutrophils % 7 H Lymphocytes % (Manual) 6 L Monocytes % (Manual) 3 Eosinophils % (Manual) 4 Platelet Estimate Normal Large Platelets Present Hypochromasia (manual) Slight Poikilocytosis (manual Slight Anisocytosis (manual) Slight Microcytosis (manual) Slight Target Cells Slight Sodium 132 Potassium 4.1 Chloride 93 L Carbon Dioxide 33 H Anion Gap 10 BUN 40 H Creatinine 2.8 H Est GFR ( Amer) 21 Est GFR (Non-Af Amer) 17 POC Glucose (mg/dL) 189 H Random Glucose 82 Calcium 7.2 L Urine Color Urine Clarity Urine pH Ur Specific [place] Urine Protein Urine Glucose (UA) Urine Ketones Urine Blood Urine Nitrate Urine Bilirubin Urine Urobilinogen Ur Leukocyte Esterase Urine WBC (Auto) Urine RBC (Auto) Ur Squamous Epith Cells Ur Random Creatinine Ur Random Sodium Urine Opiates Screen Urine Methadone Screen Ur Barbiturates Screen Ur Phencyclidine Scrn Ur Amphetamines Screen U Benzodiazepines Scrn U Oth Cocaine Metabols U Cannabinoids Screen 06/19/17 06/19/17 06/19/17 07:06 09:38 09:38 WBC RBC Hgb Hct MCV MCH MCHC RDW Plt Count MPV Neut % (Auto) Lymph % (Auto) [place] % (Auto) Eos % (Auto) Baso % (Auto) Neut # Lymph # [place] # Eos # Baso # Neutrophils % (Manual) Band Neutrophils % Lymphocytes % (Manual) Monocytes % (Manual) Eosinophils % (Manual) Platelet Estimate Large Platelets Hypochromasia (manual) Poikilocytosis (manual Anisocytosis (manual) Microcytosis (manual) Target Cells Sodium Potassium Chloride Carbon Dioxide Anion Gap BUN Creatinine Est GFR ( Amer) Est GFR (Non-Af Amer) POC Glucose (mg/dL) 107 Random Glucose Calcium Urine Color Yellow Urine Clarity Hazy Urine pH 5.0 Ur Specific [place] 1.020 Urine Protein Negative Urine Glucose (UA) Normal Urine Ketones Trace Urine Blood Negative Urine Nitrate Negative Urine Bilirubin Negative Urine Urobilinogen Normal Ur Leukocyte Esterase 1+ H Urine WBC (Auto) 9 H Urine RBC (Auto) 2 Ur Squamous Epith Cells 9 H Ur Random Creatinine Ur Random Sodium Urine Opiates Screen Negative Urine Methadone Screen Positive Ur Barbiturates Screen Negative Ur Phencyclidine Scrn Negative Ur Amphetamines Screen Negative U Benzodiazepines Scrn Positive U Oth Cocaine Metabols Positive U Cannabinoids Screen Negative 06/19/17 06/19/17 06/19/17 11:01 16:57 19:19 WBC RBC Hgb Hct MCV MCH MCHC RDW Plt Count MPV Neut % (Auto) Lymph % (Auto) [place] % (Auto) Eos % (Auto) Baso % (Auto) Neut # Lymph # [place] # Eos # Baso # Neutrophils % (Manual) Band Neutrophils % Lymphocytes % (Manual) Monocytes % (Manual) Eosinophils % (Manual) Platelet Estimate Large Platelets Hypochromasia (manual) Poikilocytosis (manual Anisocytosis (manual) Microcytosis (manual) Target Cells Sodium Potassium Chloride Carbon Dioxide Anion Gap BUN Creatinine Est GFR ( Amer) Est GFR (Non-Af Amer) POC Glucose (mg/dL) 128 H 154 H Random Glucose Calcium Urine Color Urine Clarity Urine pH Ur Specific [place] Urine Protein Urine Glucose (UA) Urine Ketones Urine Blood Urine Nitrate Urine Bilirubin Urine Urobilinogen Ur Leukocyte Esterase Urine WBC (Auto) Urine RBC (Auto) Ur Squamous Epith Cells Ur Random Creatinine 237.3 Ur Random Sodium 21 Urine Opiates Screen Urine Methadone Screen Ur Barbiturates Screen Ur Phencyclidine Scrn Ur Amphetamines Screen U Benzodiazepines Scrn U Oth Cocaine Metabols U Cannabinoids Screen 06/19/17 21:06 WBC RBC Hgb Hct MCV MCH MCHC RDW Plt Count MPV Neut % (Auto) Lymph % (Auto) [place] % (Auto) Eos % (Auto) Baso % (Auto) Neut # Lymph # [place] # Eos # Baso # Neutrophils % (Manual) Band Neutrophils % Lymphocytes % (Manual) Monocytes % (Manual) Eosinophils % (Manual) Platelet Estimate Large Platelets Hypochromasia (manual) Poikilocytosis (manual Anisocytosis (manual) Microcytosis (manual) Target Cells Sodium Potassium Chloride Carbon Dioxide Anion Gap BUN Creatinine Est GFR ( Amer) Est GFR (Non-Af Amer) POC Glucose (mg/dL) 137 H Random Glucose Calcium Urine Color Urine Clarity Urine pH Ur Specific [place] Urine Protein Urine Glucose (UA) Urine Ketones Urine Blood Urine Nitrate Urine Bilirubin Urine Urobilinogen Ur Leukocyte Esterase Urine WBC (Auto) Urine RBC (Auto) Ur Squamous Epith Cells Ur Random Creatinine Ur Random Sodium Urine Opiates Screen Urine Methadone Screen Ur Barbiturates Screen Ur Phencyclidine Scrn Ur Amphetamines Screen U Benzodiazepines Scrn U Oth Cocaine Metabols U Cannabinoids Screen
--- NOTE | 2017-06-20 03:06 | CP.PCM.PN ---
Subjective - Date & Time of Evaluation Date of Evaluation: 06/19/17 Time of Evaluation: 20:30 - Subjective Subjective: AFEBRILE, LESS SOB, ON BIPEP AND METHADONE. NO NAUSEA, NO CHEST PAIN, POSITIVE CHEST CONGESTION Objective - Vital Signs/Intake and Output Vital Signs (last 24 hours): Temp Pulse Resp BP Pulse Ox 99.3 F 88 20 94/68 L 97 06/19/17 16:49 06/19/17 16:49 06/19/17 16:49 06/19/17 16:49 06/19/17 16:49 Intake and Output: 06/19/17 06/20/17 18:59 06:59 Intake Total 1040 1050 Balance 1040 1050 - Medications Medications: Current Medications Carvedilol (Coreg) 3.125 mg PO BID [facility] Last Admin: 06/19/17 17:44 Dose: Not Given Enoxaparin Sodium (Lovenox) 40 mg SC DAILY [facility] Last Admin: 06/19/17 11:08 Dose: 40 mg Sodium Chloride (Sodium Chloride 0.9%) 1,000 mls @ 100 mls/hr IV .Q10H [facility] Last Admin: 06/19/17 21:58 Dose: 100 mls/hr Colistimethate Sodium 150 mg/ (Sodium Chloride) 100 mls @ 200 mls/hr IV Q36H [facility] Last Admin: 06/20/17 00:11 Dose: 200 mls/hr Insulin Aspart (Novolog) 0 unit SC ACHS [facility] PRN Reason: Protocol Last Admin: 06/19/17 21:51 Dose: Not Given Insulin Aspart (Novolog Mix 70/30 (70/30 Units/Ml)) 36 units SC QPM [facility] Last Admin: 06/19/17 17:43 Dose: 36 units Losartan Potassium (Cozaar) 50 mg PO DAILY [facility] Last Admin: 06/18/17 11:49 Dose: 50 mg Methadone HCl (Methadose) 120 mg PO DAILY [facility] Last Admin: 06/19/17 11:07 Dose: 120 mg Methadone HCl (Methadone) 30 mg PO DAILY [facility] Last Admin: 06/19/17 11:08 Dose: 30 mg Methadone HCl (Methadone) 5 mg PO DAILY [facility] Last Admin: 06/19/17 11:08 Dose: 5 mg Rosuvastatin Calcium (Crestor) 10 mg PO [facility] Last Admin: 06/19/17 21:50 Dose: 10 mg - Labs Labs: 06/19/17 06:10 06/19/17 06:10 - Constitutional Appears: Non-toxic, No Acute Distress, Chronically Ill - Head Exam Head Exam: ATRAUMATIC, NORMAL INSPECTION, NORMOCEPHALIC - Eye Exam Eye Exam: EOMI, Normal appearance, PERRL Pupil Exam: NORMAL ACCOMODATION - ENT Exam ENT Exam: Mucous Membranes Moist, Normal Exam - Neck Exam Neck Exam: Normal Inspection - Respiratory Exam Respiratory Exam: Decreased Breath Sounds, Rales, Rhonchi - Cardiovascular Exam Cardiovascular Exam: REGULAR RHYTHM, +S1, +S2 - GI/Abdominal Exam GI & Abdominal Exam: Soft, Normal Bowel Sounds - Rectal Exam Rectal Exam: NORMAL INSPECTION - Extremities Exam Extremities Exam: Normal Capillary Refill, Normal Inspection, Pedal Edema - Back Exam Back Exam: NORMAL INSPECTION - Neurological Exam Neurological Exam: Alert, Awake, CN II-XII Intact, Normal Gait, Oriented x3 Assessment and Plan (1) COPD (chronic obstructive pulmonary disease) Status: Chronic (2) Diabetic leg ulcer Assessment & Plan: ON ANTIBIOTICS, SEEN BY ID AND PODIATRY Status: Acute (3) HTN (hypertension) Status: Chronic (4) Uncontrolled diabetes mellitus Status: Chronic
[2017-06-20] MEDS: Sodium Chloride 0.9% 1,000 ML IV SCH ×3 (05:43→20:31)
[2017-06-20] MEDS: (Novolog) Insulin Aspart, Recombinant 100 u/ml 10 ml vial SC SCH ×4 (07:50→22:08)
[2017-06-20 08:19] LABS: CALCIUM 6.9 mg/dl (8.6-10.4); POTASSIUM 4.3 mmol/L (3.6-5.2)
[2017-06-20] MEDS: Enoxaparin 40 mg Syringe SC SCH (10:08)
[2017-06-20] MEDS: Methadone 40 mg Tab PO SCH (10:08)
--- NOTE | 2017-06-20 11:36 | CP.PCM.PN ---
Subjective - Date & Time of Evaluation Date of Evaluation: 06/20/17 Time of Evaluation: 10:10 - Subjective Subjective: 57 year old female patient was seen at bedside this morning for chronic non- healing ulceration of left leg. Patient is in NAD and is AAOx3. Patient denies of any acute overnight evernts. Patient aware that she will be going for a wound debridement with graft application on Saturday. Patient denies of any F/N/V/ C/SOB/CP. Objective - Vital Signs/Intake and Output Vital Signs (last 24 hours): Temp Pulse Resp BP Pulse Ox 99.3 F 88 20 94/68 L 97 06/19/17 16:49 06/19/17 16:49 06/19/17 16:49 06/19/17 16:49 06/19/17 16:49 Intake and Output: 06/20/17 06/20/17 06:59 18:59 Intake Total 2090 Balance 2090 - Medications Medications: Current Medications Carvedilol (Coreg) 3.125 mg PO BID [facility] Last Admin: 06/20/17 10:06 Dose: Not Given Enoxaparin Sodium (Lovenox) 40 mg SC DAILY [facility] Last Admin: 06/20/17 10:08 Dose: 40 mg Sodium Chloride (Sodium Chloride 0.9%) 1,000 mls @ 100 mls/hr IV .Q10H [facility] Last Admin: 06/20/17 10:09 Dose: 100 mls/hr Colistimethate Sodium 150 mg/ (Sodium Chloride) 100 mls @ 200 mls/hr IV Q36H [facility] Last Admin: 06/20/17 00:11 Dose: 200 mls/hr Insulin Aspart (Novolog) 0 unit SC ACHS [facility] PRN Reason: Protocol Last Admin: 06/20/17 07:50 Dose: Not Given Insulin Aspart (Novolog Mix 70/30 (70/30 Units/Ml)) 36 units SC QPM [facility] Last Admin: 06/19/17 17:43 Dose: 36 units Losartan Potassium (Cozaar) 50 mg PO DAILY [facility] Last Admin: 06/18/17 11:49 Dose: 50 mg Methadone HCl (Methadose) 120 mg PO DAILY [facility] Last Admin: 06/20/17 10:08 Dose: 120 mg Methadone HCl (Methadone) 30 mg PO DAILY [facility] Last Admin: 06/20/17 10:08 Dose: 30 mg Methadone HCl (Methadone) 5 mg PO DAILY [facility] Last Admin: 06/20/17 10:08 Dose: 5 mg Rosuvastatin Calcium (Crestor) 10 mg PO HS [facility] Last Admin: 06/19/17 21:50 Dose: 10 mg - Labs Labs: 06/19/17 06:10 06/20/17 07:12 - Constitutional Appears: Well, Non-toxic, No Acute Distress - Extremities Exam Additional comments: Left lower extremity focused exam: VASC: DP and PT pulses are palpable, skin temp runs warm to cool,from proximal to distal, cap refill < 3 sec to all digits, no pitting or non-pitting edema noted DERM: full thickness ulceration is noted to distal aspect of leg measures approximately 5 cm by 5 cm by 0.1 cm, wound appears mixed fibro-granular base, no malodor, no surrounding erythema, no ascending cellulitis, no purulence, slight serous drainage is noted, no fluctuance, no undermining, no probe to bone noted. NEURO: pedal sensation slightly diminished ORTHO: slight tenderness noted on palpation of wound bed and border - Neurological Exam Neurological Exam: Alert, Awake, Oriented x3 - Psychiatric Exam Psychiatric exam: Normal Affect, Normal Mood Assessment and Plan - Assessment and Plan (Free Text) Assessment: 56 year old female seen at bedside with chronic non-healing ulceration of left leg Plan: Patient seen and evaluated at bedside Patient discussed with attending Dr. Huynh Labs, vitals and charts reviewed (afebrile; WBC @ 11.0 as of yesterday) Final wound culture shows Pseudomonas Aeruginosa Patient to continue IV abx Full WBAT to left lower ext. Patient to OR on Saturday at 7:45 am for wound debridement with application of graft - Patient will be NPO Saturday night and will hold Lovenox 24 hours prior to the wound debridement procedure Medical optimization needed Podiatry will continue to monitor closely while patient in house
--- NOTE | 2017-06-20 13:30 | CON ---
RENAL CONSULTATION DATE: 06/19/2017 LOCATION: The patient is located in room 370, bed B. REQUESTED BY: Fernando Godinez MD REASON FOR RENAL CONSULTATION: Acute renal failure for further evaluation. HISTORY OF PRESENT ILLNESS: Mrs. Collins is 57 years old obese female with past medical history significant for diabetes for more than 8 years, hypertension for 7-8 years, hyperlipidemia, TIA x2, and bilateral leg ulcer and status post skin graft for both legs in the past. She was admitted with nonhealing ulcer and possible skin graft. Also, the patient complains that she was confused on admission and also fever, hypertension, the cultures was drawn and awaiting for the results, complains also of vomiting, and decrease p.o. intake for the last few days. Denies any chest pain or palpitation. Denies any headache or dizziness. Denies any abdominal pain at this time. The patient does complain some mild swelling of the legs. PAST MEDICAL HISTORY: Significant for longstanding diabetes more than 8 years, hypertension for 7-8 years, hyperlipidemia, TIA x2. PAST SURGICAL HISTORY: Skin graft for both legs. ALLERGIES: NO KNOWN DRUG ALLERGIES. SOCIAL HISTORY: The patient is a smoker. Smokes one pack per day for about 24 years and she is trying to cutting down number of cigarettes, 3-4 cigarettes per day now. Denies ETOH abuse. 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 She not and she has 3 children, both parents , and she also has 3 brothers alive and 4 brothers . CURRENT MEDICATIONS: Include as follows: Sodium 150 mg q.36 hours and Coreg 3.125 mg p.o. b.i.d., Losartan 50 mg p.o. daily, Crestor 10 mg at bedtime, Lovenox 40 mg subcu daily, methadone, amlodipine 10 mg p.o. daily, sodium chloride, IV fluids at 100 mL per hour, insulin aspart 70/30 36 units subcu q. p.m. REVIEW OF SYSTEMS: Significant with left leg ulcer and for possible skin grafting and left leg pain. All other review systems are reviewed under negative as per HPI. PHYSICAL EXAMINATION: VITAL SIGNS: As follows: Blood pressure this morning 104/67, pulse 95, respirations 20, temperature 99, saturation is 95%. Height 5 feet 1 inches and weight is 225 pounds, BMI 40 to 45. GENERAL: Mrs. Collins is 57 years old middle-age, obese, -[place] female, well built, well nourished, not in distress. HEENT: Pupils are normal, reactive to light and accommodation. Conjunctiva pink. Sclerae anicteric. Tongue is moist. Trachea is midline. LUNGS: Symmetry on both sides. Bilateral breath sounds present. Clear on auscultation. CVS: [place] at the fifth intercostal space, midclavicular line. S1 and S2 audible. No murmur or gallop. ABDOMEN: Protuberant, soft, tympanic. No guarding. No rigidity. No hepatosplenomegaly. SCREW DOWN: The patient is alert, awake and oriented x3. Nonfocal on examination. Cranial nerves II and XII grossly intact. Sensory and motor system is within normal limits. EXTREMITIES: The patient has dressing to the left lower extremity just above the ankle and also patient has skin graft markings from the previous surgery. LABORATORY DATA: Include as follows: As of 06/19/2017, WBC 11, hemoglobin 10.9, hematocrit 36.2, platelets 176, and neutrophils 80, bands 7, lymphs 6, monos 3, eosinophils 4. Sodium 132, potassium 4.1, chloride 93, CO2 of 33, BUN 40, creatinine 2.8, glucose 107, calcium 7.2. Urinalysis, yellow, hazing as pH 5, specific gravity 1020, protein negative, glucose negative, ketones trace, blood negative, bilirubin negative, urobilin negative, leukocytes esterase 1+, and WBC 9, RBC 2. Urine tox screen positive for methadone and benzodiazepine. Urine creatinine is 237 and urine sodium is 21. Her other laboratory data as of 06/17/2017, serum creatinine 0.7. On 06/18/2017, creatinine 1.7. On 06/19/2017, creatine 2.8. In other reports, wound culture positive for Pseudomonas aeruginosa. Ultrasound of the kidneys, both kidneys are normal size, contour, and echogenicity. Left kidney about 11.4 and right kidney about 11.7. ASSESSMENT: In summary, Mrs. Collins is a 57 years old middle aged, obese, -[place] female with hypertension, diabetes , nonhealing left leg ulcer, was admitted after recommendation by Podiatric for possible skin graft as the patient was found to have increased BUN and creatinine submission, and nausea and vomiting, decrease p.o. intake, and hypertension. 1. Acute renal failure, most likely secondary to acute tubular necrosis, secondary to intravascular volume depletion. 2. Hypertension secondary to decreased p.o. intake, rule out sepsis. 3. Rule out urinary tract infection. PLAN: Check urine and blood culture and repeat BMP in a.m. and continue IV fluids, normal saline, and hold the blood pressure medicine for systolic blood pressure less than 130. We will follow with you. Thank you for allowing me to participate in your patient's care. Cal Llanos MD MTDD
[2017-06-20] MEDS: (Novolog Mix 70/30) Insulin Aspart/Insulin Aspar 100 units/ml SC SCH (18:04)
--- NOTE | 2017-06-20 20:23 | CP.PCM.PN ---
Subjective - Date & Time of Evaluation Date of Evaluation: 06/20/17 Time of Evaluation: 20:22 - Subjective Subjective: pt is seen and examined, follow up consult is dictated #[id number] renal function is simproving, uti Objective - Vital Signs/Intake and Output Vital Signs (last 24 hours): Temp Pulse Resp BP Pulse Ox 98.4 F 96 H 20 108/66 95 06/20/17 16:37 06/20/17 16:37 06/20/17 16:37 06/20/17 16:37 06/20/17 16:37 Intake and Output: 06/20/17 06/21/17 18:59 06:59 Intake Total 1180 Balance 1180 - Medications Medications: Current Medications Carvedilol (Coreg) 3.125 mg PO BID [facility] Last Admin: 06/20/17 17:55 Dose: Not Given Enoxaparin Sodium (Lovenox) 40 mg SC DAILY [facility] Last Admin: 06/20/17 10:08 Dose: 40 mg Sodium Chloride (Sodium Chloride 0.9%) 1,000 mls @ 100 mls/hr IV .Q10H [facility] Last Admin: 06/20/17 10:09 Dose: 100 mls/hr Colistimethate Sodium 150 mg/ (Sodium Chloride) 100 mls @ 200 mls/hr IV Q36H [facility] Last Admin: 06/20/17 00:11 Dose: 200 mls/hr Insulin Aspart (Novolog) 0 unit SC ACHS [facility] PRN Reason: Protocol Last Admin: 06/20/17 17:54 Dose: Not Given Insulin Aspart (Novolog Mix 70/30 (70/30 Units/Ml)) 36 units SC QPM [facility] Last Admin: 06/20/17 18:04 Dose: 36 units Losartan Potassium (Cozaar) 50 mg PO DAILY [facility] Last Admin: 06/18/17 11:49 Dose: 50 mg Methadone HCl (Methadose) 120 mg PO DAILY [facility] Last Admin: 06/20/17 10:08 Dose: 120 mg Methadone HCl (Methadone) 30 mg PO DAILY [facility] Last Admin: 06/20/17 10:08 Dose: 30 mg Methadone HCl (Methadone) 5 mg PO DAILY [facility] Last Admin: 06/20/17 10:08 Dose: 5 mg Rosuvastatin Calcium (Crestor) 10 mg PO HS [facility] Last Admin: 06/19/17 21:50 Dose: 10 mg - Labs Labs: 06/19/17 06:10 06/20/17 07:12
--- NOTE | 2017-06-21 01:58 | CP.PCM.PN ---
Subjective - Date & Time of Evaluation Date of Evaluation: 06/20/17 Time of Evaluation: 20:35 - Subjective Subjective: ON ISOLATION, LESS SOB, LESS ANXIOUS, NO CHEST PAIN Objective - Vital Signs/Intake and Output Vital Signs (last 24 hours): Temp Pulse Resp BP Pulse Ox 99.2 F 96 H 20 134/83 95 06/20/17 20:10 06/20/17 23:57 06/20/17 20:10 06/20/17 20:10 06/20/17 20:10 Intake and Output: 06/20/17 06/21/17 18:59 06:59 Intake Total 1180 600 Balance 1180 600 - Medications Medications: Current Medications Carvedilol (Coreg) 3.125 mg PO BID [facility] [place] Last Admin: 06/20/17 17:55 Dose: Not Given Enoxaparin Sodium (Lovenox) 40 mg SC DAILY [facility] Last Admin: 06/20/17 10:08 Dose: 40 mg Sodium Chloride (Sodium Chloride 0.9%) 1,000 mls @ 100 mls/hr IV .Q10H [facility] Last Admin: 06/20/17 20:31 Dose: 100 mls/hr Colistimethate Sodium 150 mg/ (Sodium Chloride) 100 mls @ 200 mls/hr IV Q36H [facility] Last Admin: 06/20/17 00:11 Dose: 200 mls/hr Insulin Aspart (Novolog) 0 unit SC ACHS [facility] [place] PRN Reason: Protocol Last Admin: 06/20/17 22:08 Dose: Not Given Insulin Aspart (Novolog Mix 70/30 (70/30 Units/Ml)) 36 units SC QPM [facility] Last Admin: 06/20/17 18:04 Dose: 36 units Losartan Potassium (Cozaar) 50 mg PO DAILY [facility] [place] Last Admin: 06/18/17 11:49 Dose: 50 mg Methadone HCl (Methadose) 120 mg PO DAILY [facility] Last Admin: 06/20/17 10:08 Dose: 120 mg Methadone HCl (Methadone) 30 mg PO DAILY [facility] [place] Last Admin: 06/20/17 10:08 Dose: 30 mg Methadone HCl (Methadone) 5 mg PO DAILY [facility] [place] Last Admin: 06/20/17 10:08 Dose: 5 mg Rosuvastatin Calcium (Crestor) 10 mg PO HS [facility] Last Admin: 06/20/17 21:25 Dose: 10 mg - Labs Labs: 06/19/17 06:10 06/20/17 07:12 - Constitutional Appears: Non-toxic, No Acute Distress, Chronically Ill - Head Exam Head Exam: NORMOCEPHALIC - Eye Exam Eye Exam: EOMI, Normal appearance, PERRL Pupil Exam: NORMAL ACCOMODATION - ENT Exam ENT Exam: Mucous Membranes Moist, Normal Exam, Normal Oropharynx, TM's Normal Bilaterally - Neck Exam Neck Exam: Normal Inspection - Respiratory Exam Respiratory Exam: Decreased Breath Sounds, Rales, Rhonchi - Cardiovascular Exam Cardiovascular Exam: Tachycardia, REGULAR RHYTHM, +S1, +S2 - GI/Abdominal Exam GI & Abdominal Exam: Soft, Normal Bowel Sounds - Rectal Exam Rectal Exam: NORMAL INSPECTION - Neurological Exam Neurological Exam: Alert, Awake, CN II-XII Intact, Normal Gait, Oriented x3 Neuro motor strength exam: Left Upper Extremity: 5, Right Upper Extremity: 5, Left Lower Extremity: 5, Right Lower Extremity: 5 - Psychiatric Exam Psychiatric exam: Anxious, Depressed, Flat Affect - Skin Skin Exam: Dry (WOUND L LEG) Assessment and Plan (1) COPD (chronic obstructive pulmonary disease) Status: Chronic (2) Diabetic leg ulcer Status: Acute (3) HTN (hypertension) Status: Chronic (4) Uncontrolled diabetes mellitus Status: Chronic
--- NOTE | 2017-06-21 04:20 | PN ---
DATE:06/20/2017 LOCATION: The patient is located in room 555. REQUESTED BY: Fernando Godinez MD REASON FOR FOLLOWUP: Acute renal failure. HISTORY OF PRESENT ILLNESS: Mrs. Collins is a 57 years old obese female with past medical history significant for longstanding diabetes, hypertension with leg ulcers, status post skin graft for both legs was admitted after referring from Podiatry for nonhealing ulcer and possible skin grafting. The patient was also found to have decreased p.o. intake, nausea, vomiting, for few days and the patient was found to have worsening renal functioning yesterday, creatinine of 2.8 and baseline is less than 1 and the patient was found to have hypertension, intravascularly depleted and started on IV fluid. The patient is feeling much better today, not in acute distress. No chest pain. No palpitation. No fever. No cough. No abdominal pain. No nausea, vomiting, or diarrhea. PHYSICAL EXAMINATION: VITAL SIGNS: As follows: Blood pressure 134/83, pulse 96, respirations 20, temperature 99.2, saturation 95%, height 5 feet 11 inches, and weight 225 pounds. BMI of 42.5. GENERAL: Mrs. Collins is a 57 years old elderly obese female not in acute distress. HEENT: Pupils are normal, reactive to light and accommodation. Conjunctivae pink. Sclerae anicteric. Tongue is moist. Trachea is midline. LUNGS: Symmetry on both sides. Bilateral breath sounds present. Clear on auscultation. CVS: [place] at the fifth intercostal space, midclavicular line. S1 and S2 audible. No murmur or gallop. ABDOMEN: Normal in appearance, protuberant, soft, tympanic. No guarding. No hepatosplenomegaly. EMPLOYEE BENEFITS ADMINISTRATOR: The patient is alert, awake and oriented x3. Nonfocal on examination. Cranial nerves II and XII grossly intact. Sensory and motor system is within normal limits. EXTREMITIES: No cyanosis, no clubbing, no edema on the right leg. The patient has dressing to the right leg. LABORATORY DATA: Include as follows: As of 06/20/2017, sodium 135, potassium 4.3, chloride 95, CO2 30, BUN 49, creatinine 2.0, glucose 81, and calcium 6.9. As of 06/19/2017, WBC 11, hemoglobin 10.9, hematocrit 36.2, MCV 74, and platelet 176. Wound culture positive for pseudomonas and urine culture positive for Gram positive cocci. Would culture positive for pseudomonas and identified as multidrug resistant organism and identification of the Gram positive cocci is pending. Urine culture more than 100,000 Gram positive cocci. ASSESSMENT: In summary, Mrs. Collins is a 57 years old obese female with hypertension, diabetes with nonhealing left leg ulcer and was found to have pseudomonas with multidrug resistant organism and also urine culture positive for Gram positive cocci with increased BUN and creatinine. 1. Nonoliguric acute renal failure, most likely secondary to acute tubular necrosis, cannot rule out prerenal azotemia secondary to intravascular volume depletion, secondary to decreased oral intake, nausea, and vomiting and urine sodium is 21 picture consistent more like prerenal azotemia, and urine eosinophils was also negative, most likely it is prerenal, doubt acute interstitial nephritis. 2. Urinary tract infection. 3. Wound infection with multidrug resistant organism secondary to pseudomonas. PLAN: Continue antibiotics as per ID recommendations. Continue colistimethate 150 mg q.36 hours and Coreg 3.125 mg b.i.d., Losartan 50 mg daily on hold, Crestor 10 mg at bedtime, and Lovenox 40 mg subcutaneously daily, and methadone and also IV fluids continue normal saline at 100 mL per hour. Repeat BMP in a.m. We will follow with you. Thank you for allowing me to participate in your patient's care and followup urine culture identification and sensitivity. Cal Llanos MD MTDD
[2017-06-21 07:28] LABS: POTASSIUM 4.7 mmol/L (3.6-5.2)
[2017-06-21 07:32] LABS: CALCIUM 8.1 mg/dl (8.6-10.4)
[2017-06-21] MEDS: (Novolog) Insulin Aspart, Recombinant 100 u/ml 10 ml vial SC SCH ×4 (08:23→21:35)
[2017-06-21] MEDS ORDERED: Lidocaine 1% Inj (20ml) ONE (10:09)
--- NOTE | 2017-06-21 10:23 | PCM.SURG1 ---
Surgeon's Initial Post Op Note - Surgeon's Notes Surgeon: Navin Harrison MD Armhole Baster Hand: None Type of Anesthesia: Local Pre-Operative Diagnosis: Poor venous access Operative Findings: Patent right basilic vein. Post-Operative Diagnosis: Poor venous access Operation Performed: Right basilic vein single lumen picc placement, 39 cm. Tip in the SVC. Specimen/Specimens Removed: None Estimated Blood Loss: EBL {In ML}: 2 Blood Products Given: N/A Drains Used: No Drains Post-Op Condition: Fair Date of Surgery/Procedure: 06/21/17 Time of Surgery/Procedure: 10:20
[2017-06-21 10:33] LABS: CHLORIDE URINE <15 mmol/L (32-290)
[2017-06-21] MEDS: Methadone 40 mg Tab PO SCH (10:37)
[2017-06-21] MEDS: Enoxaparin 40 mg Syringe SC SCH (10:37)
--- NOTE | 2017-06-21 12:57 | CP.PCM.PN ---
Subjective - Date & Time of Evaluation Date of Evaluation: 06/21/17 Time of Evaluation: 12:57 - Subjective Subjective: AFEBRILE, COMPLAINS OF CHEST PAIN LEFT LEG ULCER. S/P PICC [id number] PLACEMENT. URINE CULTURE +VE VRE. RENAL FUNCTIONS IMPROVING. URINE EOSINOPHILS NEGATIVE. PATIENT STARTED ON DAPTOMYCIN 4 MG/KG iv PIGGYBACK EVERY 24 HOURLY. 06/21/17. CONTINUE iv COLISTIN-RENAL DOSE EVERY 24 HOURLY. ( WOUND CULTURES LT LEG ULCER +VE PSEUDOMONAS AERUGINOSA REPORTED SENSITIVE TO COLISTIN .) PATIENT INFORMED OF MULTIPLE DRUG-RESISTANT ORGANISMS. STATES HER IS POSITIVE FOR HIV . HE LIVES WITH HER WILL SCREEN FOR HIV STRICT CONTACT PRECAUTIONS. Objective - Vital Signs/Intake and Output Vital Signs (last 24 hours): Temp Pulse Resp BP Pulse Ox 98.7 F 62 20 146/81 95 06/21/17 09:32 06/21/17 09:32 06/21/17 09:32 06/21/17 09:32 06/21/17 09:32 Intake and Output: 06/21/17 06/21/17 06:59 18:59 Intake Total 600 Balance 600 - Medications Medications: Current Medications Carvedilol (Coreg) 3.125 mg PO BID [facility] Last Admin: 06/21/17 10:37 Dose: 3.125 mg Enoxaparin Sodium (Lovenox) 40 mg SC DAILY [facility] Last Admin: 06/21/17 10:37 Dose: 40 mg Sodium Chloride (Sodium Chloride 0.9%) 1,000 mls @ 100 mls/hr IV .Q10H [facility] Last Admin: 06/20/17 20:31 Dose: 100 mls/hr Colistimethate Sodium 150 mg/ (Sodium Chloride) 100 mls @ 200 mls/hr IV Q36H [facility] Last Admin: 06/21/17 12:31 Dose: 200 mls/hr Insulin Aspart (Novolog) 0 unit SC ACHS [facility] PRN Reason: Protocol Last Admin: 06/21/17 12:03 Dose: Not Given Insulin Aspart (Novolog Mix 70/30 (70/30 Units/Ml)) 36 units SC QPM [facility] Last Admin: 06/20/17 18:04 Dose: 36 units Losartan Potassium (Cozaar) 50 mg PO DAILY [facility] Last Admin: 06/18/17 11:49 Dose: 50 mg Methadone HCl (Methadose) 120 mg PO DAILY [facility] Last Admin: 06/21/17 10:37 Dose: 120 mg Methadone HCl (Methadone) 30 mg PO DAILY [facility] Last Admin: 06/21/17 10:37 Dose: 30 mg Methadone HCl (Methadone) 5 mg PO DAILY [facility] Last Admin: 06/21/17 10:37 Dose: 5 mg Rosuvastatin Calcium (Crestor) 10 mg PO HS [facility] Last Admin: 06/20/17 21:25 Dose: 10 mg - Labs Labs: 06/19/17 06:10 06/21/17 07:10 - Constitutional Appears: No Acute Distress - Head Exam Head Exam: NORMAL INSPECTION - Eye Exam Eye Exam: EOMI, PERRL - ENT Exam ENT Exam: Normal Oropharynx - Respiratory Exam Respiratory Exam: Clear to Ausculation Bilateral - Cardiovascular Exam Cardiovascular Exam: REGULAR RHYTHM, +S1, +S2 - GI/Abdominal Exam GI & Abdominal Exam: Soft, Normal Bowel Sounds - Extremities Exam Extremities Exam: Pedal Edema (LEFT LOWER EXTREMITY. pRESENTLY DRESSING IN PLACE.), Tenderness (IMPROVING) - Neurological Exam Neurological Exam: Alert, Awake, CN II-XII Intact, Oriented x3 - Skin Skin Exam: Normal Color, Warm Assessment and Plan (1) Diabetic ulcer of lower extremity Status: Acute (2) Cellulitis Status: Acute (3) COPD (chronic obstructive pulmonary disease) Status: Chronic (4) HTN (hypertension) Status: Chronic (5) Acute prerenal azotemia Status: Acute (6) Uncontrolled diabetes mellitus Status: Chronic (7) UTI (urinary tract infection) due to Enterococcus Assessment & Plan: patient started on daptomycin as urine positive for VRE. 06/21/17. Status: Acute
[2017-06-21] MEDS ORDERED: DAPTOmycin 500 mg Inj (Cubicin) IV SCH (13:00)
[2017-06-21] MEDS: (Novolog Mix 70/30) Insulin Aspart/Insulin Aspar 100 units/ml SC SCH (18:19)
--- NOTE | 2017-06-21 19:05 | CP.PCM.PN ---
Subjective - Date & Time of Evaluation Date of Evaluation: 06/21/17 Time of Evaluation: 14:30 - Subjective Subjective: 57 year old female with left leg ulceration seen resting comfortably at bedside today. Patient denies any acute overnight events and states that her pain today is minimal. Patient denies any further pedal complaints at this time. Patient denies N/V/F/C/CP/SOB Objective - Vital Signs/Intake and Output Vital Signs (last 24 hours): Temp Pulse Resp BP Pulse Ox 97.9 F 84 21 155/77 H 95 06/21/17 15:56 06/21/17 18:19 06/21/17 15:56 06/21/17 18:19 06/21/17 15:56 Intake and Output: 06/21/17 06/22/17 18:59 06:59 Intake Total 580 Balance 580 - Medications Medications: Current Medications Carvedilol (Coreg) 3.125 mg PO BID [facility] Last Admin: 06/21/17 18:19 Dose: 3.125 mg Enoxaparin Sodium (Lovenox) 40 mg SC DAILY [facility] Last Admin: 06/21/17 10:37 Dose: 40 mg Sodium Chloride (Sodium Chloride 0.9%) 1,000 mls @ 100 mls/hr IV .Q10H [facility] Last Admin: 06/20/17 20:31 Dose: 100 mls/hr Colistimethate Sodium 150 mg/ (Sodium Chloride) 100 mls @ 200 mls/hr IV Q36H [facility] Last Admin: 06/21/17 12:31 Dose: 200 mls/hr Daptomycin 410 mg/ Sodium (Chloride) 100 mls @ 100 mls/hr IV Q24H [facility] Stop: 06/26/17 15:31 Last Admin: 06/21/17 15:50 Dose: 100 mls/hr Insulin Aspart (Novolog) 0 unit SC ACHS [facility] PRN Reason: Protocol Last Admin: 06/21/17 18:20 Dose: 2 unit Insulin Aspart (Novolog Mix 70/30 (70/30 Units/Ml)) 36 units SC QPM [facility] Last Admin: 06/21/17 18:19 Dose: 36 units Losartan Potassium (Cozaar) 50 mg PO DAILY [facility] Last Admin: 06/18/17 11:49 Dose: 50 mg Methadone HCl (Methadose) 120 mg PO DAILY [facility] Last Admin: 06/21/17 10:37 Dose: 120 mg Methadone HCl (Methadone) 30 mg PO DAILY [facility] Last Admin: 06/21/17 10:37 Dose: 30 mg Methadone HCl (Methadone) 5 mg PO DAILY [facility] Last Admin: 06/21/17 10:37 Dose: 5 mg Rosuvastatin Calcium (Crestor) 10 mg PO HS [facility] Last Admin: 06/20/17 21:25 Dose: 10 mg - Labs Labs: 06/19/17 06:10 06/21/17 07:10 - Constitutional Appears: Well, Non-toxic, No Acute Distress - Extremities Exam Additional comments: Left lower extremity focused exam: VASC: DP and PT pulses are palpable, skin temp runs warm to cool,from proximal to distal, cap refill < 3 sec to all digits, no pitting or non-pitting edema noted DERM: full thickness ulceration is noted to distal aspect of leg measures approximately 5 cm by 5 cm by 0.1 cm, wound appears mixed fibro-granular base, no malodor, no surrounding erythema, no ascending cellulitis, no purulence, slight serous drainage is noted, no fluctuance, no undermining, no probe to bone noted. NEURO: pedal sensation slightly diminished ORTHO: slight tenderness noted on palpation of wound bed and border - Neurological Exam Neurological Exam: Alert, Awake, Oriented x3 - Psychiatric Exam Psychiatric exam: Normal Affect, Normal Mood Assessment and Plan - Assessment and Plan (Free Text) Assessment: 56 year old female seen at bedside with chronic non-healing ulceration of left leg Plan: Patient seen and evaluated at bedside Charts, labs and vitals reviewed; patient afebrile Patient discussed with attending Dr. Huynh Final wound culture shows Pseudomonas Aeruginosa Patient to continue IV abx Full WBAT to left lower ext. Patient to OR on Saturday at 7:45 am for wound debridement with application of amniox graft - Patient will be NPO Saturday night and will hold Lovenox 24 hours prior to the wound debridement procedure Medical optimization needed this weekend Podiatry will continue to monitor closely while patient in house
--- NOTE | 2017-06-21 20:30 | CP.PCM.PN ---
Subjective - Date & Time of Evaluation Date of Evaluation: 06/21/17 Time of Evaluation: 20:29 - Subjective Subjective: pt is seen and examined, follow up consult is dictated #[id number] Objective - Vital Signs/Intake and Output Vital Signs (last 24 hours): Temp Pulse Resp BP Pulse Ox 97.9 F 84 21 155/77 H 95 06/21/17 15:56 06/21/17 18:19 06/21/17 15:56 06/21/17 18:19 06/21/17 15:56 Intake and Output: 06/21/17 06/22/17 18:59 06:59 Intake Total 580 Balance 580 - Medications Medications: Current Medications Carvedilol (Coreg) 3.125 mg PO BID [facility] Last Admin: 06/21/17 18:19 Dose: 3.125 mg Enoxaparin Sodium (Lovenox) 40 mg SC DAILY [facility] Last Admin: 06/21/17 10:37 Dose: 40 mg Sodium Chloride (Sodium Chloride 0.9%) 1,000 mls @ 100 mls/hr IV .Q10H [facility] Last Admin: 06/20/17 20:31 Dose: 100 mls/hr Colistimethate Sodium 150 mg/ (Sodium Chloride) 100 mls @ 200 mls/hr IV Q36H [facility] Last Admin: 06/21/17 12:31 Dose: 200 mls/hr Daptomycin 410 mg/ Sodium (Chloride) 100 mls @ 100 mls/hr IV Q24H [facility] Stop: 06/26/17 15:31 Last Admin: 06/21/17 15:50 Dose: 100 mls/hr Insulin Aspart (Novolog) 0 unit SC ACHS [facility] PRN Reason: Protocol Last Admin: 06/21/17 18:20 Dose: 2 unit Insulin Aspart (Novolog Mix 70/30 (70/30 Units/Ml)) 36 units SC QPM [facility] Last Admin: 06/21/17 18:19 Dose: 36 units Losartan Potassium (Cozaar) 50 mg PO DAILY [facility] Last Admin: 06/18/17 11:49 Dose: 50 mg Methadone HCl (Methadose) 120 mg PO DAILY [facility] Last Admin: 06/21/17 10:37 Dose: 120 mg Methadone HCl (Methadone) 30 mg PO DAILY [facility] Last Admin: 06/21/17 10:37 Dose: 30 mg Methadone HCl (Methadone) 5 mg PO DAILY [facility] Last Admin: 06/21/17 10:37 Dose: 5 mg Rosuvastatin Calcium (Crestor) 10 mg PO [facility] Last Admin: 06/20/17 21:25 Dose: 10 mg - Labs Labs: 06/19/17 06:10 06/21/17 07:10
[2017-06-21] MEDS: Sodium Chloride 0.9% 1,000 ML IV SCH (21:41)
--- NOTE | 2017-06-22 01:38 | CP.PCM.PN ---
Subjective - Date & Time of Evaluation Date of Evaluation: 06/21/17 Time of Evaluation: 20:37 - Subjective Subjective: ON DAPTOMYCIN, NO FEVER, COUGH, WHEEZING, NO CHEST PAIN Objective - Vital Signs/Intake and Output Vital Signs (last 24 hours): Temp Pulse Resp BP Pulse Ox 98.4 F 78 20 120/77 96 06/21/17 23:30 06/21/17 23:30 06/21/17 23:30 06/21/17 23:30 06/21/17 23:30 Intake and Output: 06/21/17 06/22/17 18:59 06:59 Intake Total 580 1200 Balance 580 1200 - Medications Medications: Current Medications Carvedilol (Coreg) 3.125 mg PO BID [facility] Last Admin: 06/21/17 18:19 Dose: 3.125 mg Enoxaparin Sodium (Lovenox) 40 mg SC DAILY [facility] Last Admin: 06/21/17 10:37 Dose: 40 mg Colistimethate Sodium 150 mg/ (Sodium Chloride) 100 mls @ 200 mls/hr IV Q36H [facility] Last Admin: 06/21/17 12:31 Dose: 200 mls/hr Daptomycin 410 mg/ Sodium (Chloride) 100 mls @ 100 mls/hr IV Q24H [facility] Stop: 06/26/17 15:31 Last Admin: 06/21/17 15:50 Dose: 100 mls/hr Insulin Aspart (Novolog) 0 unit SC ACHS [facility] PRN Reason: Protocol Last Admin: 06/21/17 21:35 Dose: Not Given Insulin Aspart (Novolog Mix 70/30 (70/30 Units/Ml)) 36 units SC QPM [facility] Last Admin: 06/21/17 18:19 Dose: 36 units Losartan Potassium (Cozaar) 50 mg PO DAILY [facility] Last Admin: 06/18/17 11:49 Dose: 50 mg Methadone HCl (Methadose) 120 mg PO DAILY [facility] Last Admin: 06/21/17 10:37 Dose: 120 mg Methadone HCl (Methadone) 30 mg PO DAILY [facility] Last Admin: 06/21/17 10:37 Dose: 30 mg Methadone HCl (Methadone) 5 mg PO DAILY [facility] Last Admin: 06/21/17 10:37 Dose: 5 mg Rosuvastatin Calcium (Crestor) 10 mg PO [facility] Last Admin: 06/21/17 21:39 Dose: 10 mg - Labs Labs: 06/19/17 06:10 06/21/17 07:10 - Constitutional Appears: Non-toxic, No Acute Distress - Head Exam Head Exam: ATRAUMATIC, NORMAL INSPECTION, NORMOCEPHALIC - Eye Exam Eye Exam: EOMI, Normal appearance, PERRL Pupil Exam: NORMAL ACCOMODATION - ENT Exam ENT Exam: Mucous Membranes Moist, Normal Exam, Normal Oropharynx, TM's Normal Bilaterally - Neck Exam Neck Exam: Normal Inspection - Respiratory Exam Respiratory Exam: Decreased Breath Sounds, Rhonchi - Cardiovascular Exam Cardiovascular Exam: REGULAR RHYTHM, +S1, +S2 - GI/Abdominal Exam GI & Abdominal Exam: Soft, Normal Bowel Sounds - Rectal Exam Rectal Exam: NORMAL INSPECTION - Extremities Exam Extremities Exam: Normal Capillary Refill, Normal Inspection, Pedal Edema - Neurological Exam Neurological Exam: Alert, Awake, CN II-XII Intact, Normal Gait, Oriented x3 Neuro motor strength exam: Left Upper Extremity: 5, Right Upper Extremity: 5, Left Lower Extremity: 5, Right Lower Extremity: 5 - Psychiatric Exam Psychiatric exam: Normal Mood - Skin Skin Exam: Intact Assessment and Plan (1) COPD (chronic obstructive pulmonary disease) Status: Chronic (2) Diabetic leg ulcer Status: Acute (3) HTN (hypertension) Status: Chronic (4) Uncontrolled diabetes mellitus Status: Chronic (5) UTI (urinary tract infection) due to Enterococcus Status: Acute
--- NOTE | 2017-06-22 04:26 | CON ---
FOLLOWUP RENAL CONSULTATION LOCATION: The patient is located in room 555. DATE:06/21/2017 REQUESTED BY: Dr. Fernando Godinez. REASON FOR FOLLOWUP: Acute renal failure. HISTORY OF PRESENT ILLNESS: Mrs. Collins is a 57 years old obese female with a past medical history significant for long-standing hypertension, diabetes, bilateral skin grafts for the previous ulcers and now the patient was admitted after referring by Podiatry for a nonhealing left leg ulcer and for possible skin graft. The patient was found to have a UTI and also wound culture positive for Pseudomonas with multidrug resistant organism. The patient is being treated for infection. The patient was found to have acute renal failure after admission to the hospital with nausea, vomiting, and decreased p.o. intake. The patient is being hydrated. Denies any complaints. No chest pain. No palpitations. No fever. No cough. No abdominal pain. No nausea, vomiting, or diarrhea. PHYSICAL EXAMINATION: VITAL SIGNS: As follows; blood pressure 155/77, pulse 84, respirations 21, temperature 97.9 and saturation 95%. GENERAL: Mrs. Collins is a 57 years old obese female, well-built, well-nourished, not in acute distress. HEENT: Pupils are normal, reactive to light and accommodation. Conjunctivae pink. Sclerae anicteric. Tongue is moist. Trachea is midline. LUNGS: Symmetry on both sides. Bilateral breath sounds present. Clear on auscultation. CVS: [place] at the fifth intercostal space, midclavicular line. S1 and S2 audible. No murmur. No gallop. ABDOMEN: Normal in appearance, soft, tympanic. No guarding. No rigidity. No hepatosplenomegaly. METAL CAN INSPECTOR: The patient is alert, awake and oriented x3. Nonfocal on examination. Cranial nerves II and XII grossly intact. Sensory and motor system is grossly within normal limits. EXTREMITIES: No cyanosis, no clubbing, no edema. The patient has a dressing to the left leg. CURRENT MEDICATIONS: Includes as follows; colistimethate sodium 150 mg q.36 hours, Coreg 3.125 mg p.o. b.i.d., Cozaar 50 mg daily, Crestor 10 mg at bedtime, daptomycin 410 mg q.24 hours and Lovenox 40 mg subcu daily, methadone, insulin Novolog mix 70/30 36 units subq q. p.m. and IV fluids 160 mL per hour. LABORATORY DATA: Sodium is 137, potassium 4.7, chloride 98, CO2 of 34, BUN 33, creatinine 1.2, glucose 102, and calcium 8.1. Accu-Chek is 137, 216, and 73. Wound culture positive for Pseudomonas aeruginosa and urine culture positive for Enterococcus faecium and resistant to vancomycin identified as VRE. IN SUMMARY: Mrs. Collins is a 57 years old obese female with a history of long-standing hypertension, diabetes, chronic left leg ulcer, found to have wound culture positive for Pseudomonas and urine culture positive for vancomycin-resistant Enterococcus, on colistimethate and also on daptomycin. 1. Nonoliguric acute renal failure. The renal function is improving with hydration, picture consistent with prerenal azotemia. The renal function improving with IV hydration. 2. Urinary tract infection secondary to vancomycin-resistant Enterococcus on daptomycin. 3. Left leg infection. Continue colistimethate as per ID recommendation. 4. Hypertension. Blood pressure is stable. PLAN: Follow with Podiatry for skin grafting next week. Will discontinue IV fluids at this time. Will encourage p.o. fluid intake. Thank you for allowing me to participate in your patient's care. Cal Llanos MD YESSY
[2017-06-22 07:38] LABS: CHLORIDE 99 mmol/L (98-107); SODIUM 138 mmol/L (132-148)
[2017-06-22 07:41] LABS: BLOOD UREA NITROGEN 21 mg/dL (7-17); CARBON DIOXIDE 32 mmol/L (22-30); GFR AFRICAN-AMERICAN > 60
[2017-06-22 07:42] LABS: CALCIUM 8.7 mg/dl (8.6-10.4); GLUCOSE,RANDOM 164 mg/dL (65-105)
[2017-06-22 07:46] LABS: POTASSIUM 5.5 mmol/L (3.6-5.2)
--- NOTE | 2017-06-22 07:53 | CP.PCM.PN ---
<Fish Huynh - Last Filed: 06/22/17 07:50> Subjective - Date & Time of Evaluation Date of Evaluation: 06/22/17 Time of Evaluation: 07:25 - Subjective Subjective: pt seen this am for wound left lower leg. seen with resident . scheduled for debridement and amniox graft on saturday . need medical clearance. Objective - Vital Signs/Intake and Output Vital Signs (last 24 hours): Temp Pulse Resp BP Pulse Ox 97.9 F 96 H 20 110/70 96 06/21/17 23:40 06/21/17 23:40 06/21/17 23:40 06/21/17 23:40 06/21/17 23:40 Intake and Output: 06/22/17 06/22/17 06:59 18:59 Intake Total 1200 Balance 1200 - Medications Medications: Current Medications Carvedilol (Coreg) 3.125 mg PO BID [facility] Last Admin: 06/21/17 18:19 Dose: 3.125 mg Enoxaparin Sodium (Lovenox) 40 mg SC DAILY [facility] Last Admin: 06/21/17 10:37 Dose: 40 mg Colistimethate Sodium 150 mg/ (Sodium Chloride) 100 mls @ 200 mls/hr IV Q36H [facility] Last Admin: 06/21/17 12:31 Dose: 200 mls/hr Daptomycin 410 mg/ Sodium (Chloride) 100 mls @ 100 mls/hr IV Q24H [facility] Stop: 06/26/17 15:31 Last Admin: 06/21/17 15:50 Dose: 100 mls/hr Insulin Aspart (Novolog) 0 unit SC ACHS [facility] PRN Reason: Protocol Last Admin: 06/21/17 21:35 Dose: Not Given Insulin Aspart (Novolog Mix 70/30 (70/30 Units/Ml)) 36 units SC QPM [facility] Last Admin: 06/21/17 18:19 Dose: 36 units Losartan Potassium (Cozaar) 50 mg PO DAILY [facility] Last Admin: 06/18/17 11:49 Dose: 50 mg Methadone HCl (Methadose) 120 mg PO DAILY [facility] Last Admin: 06/21/17 10:37 Dose: 120 mg Methadone HCl (Methadone) 30 mg PO DAILY [facility] Last Admin: 06/21/17 10:37 Dose: 30 mg Methadone HCl (Methadone) 5 mg PO DAILY [facility] Last Admin: 06/21/17 10:37 Dose: 5 mg Rosuvastatin Calcium (Crestor) 10 mg PO HS [facility] Last Admin: 06/21/17 21:39 Dose: 10 mg - Labs Labs: 06/19/17 06:10 06/22/17 07:08 <Juanjose Nichols - Last Filed: 06/22/17 09:00> Subjective - Subjective Subjective: 57 year old female was seen for chronic left leg ulceration at bedside with attending Dr. Huynh. Patient resting comfortably in bed, AAOx3, and in NAD. Patient denies any acute events overnight. Denies n/v/sob/cp/chills or fever.\ Patient is aware that she will go to surgery for debridement and application of graft of left leg ulcer Saturday at 7:45am pending medical clearance. Objective - Vital Signs/Intake and Output Vital Signs (last 24 hours): Temp Pulse Resp BP Pulse Ox 97.9 F 96 H 20 110/70 96 06/21/17 23:40 06/21/17 23:40 06/21/17 23:40 06/21/17 23:40 06/21/17 23:40 Intake and Output: 06/22/17 06/22/17 06:59 18:59 Intake Total 1200 Balance 1200 - Medications Medications: Current Medications Carvedilol (Coreg) 3.125 mg PO BID [facility] Last Admin: 06/21/17 18:19 Dose: 3.125 mg Enoxaparin Sodium (Lovenox) 40 mg SC DAILY [facility] Last Admin: 06/21/17 10:37 Dose: 40 mg Colistimethate Sodium 150 mg/ (Sodium Chloride) 100 mls @ 200 mls/hr IV Q36H [facility] Last Admin: 06/21/17 12:31 Dose: 200 mls/hr Daptomycin 410 mg/ Sodium (Chloride) 100 mls @ 100 mls/hr IV Q24H [facility] Stop: 06/26/17 15:31 Last Admin: 06/21/17 15:50 Dose: 100 mls/hr Insulin Aspart (Novolog) 0 unit SC ACHS [facility] PRN Reason: Protocol Last Admin: 06/21/17 21:35 Dose: Not Given Insulin Aspart (Novolog Mix 70/30 (70/30 Units/Ml)) 36 units SC QPM [facility] Last Admin: 06/21/17 18:19 Dose: 36 units Losartan Potassium (Cozaar) 50 mg PO DAILY [facility] Last Admin: 06/18/17 11:49 Dose: 50 mg Methadone HCl (Methadose) 120 mg PO DAILY [facility] Last Admin: 06/21/17 10:37 Dose: 120 mg Methadone HCl (Methadone) 30 mg PO DAILY [facility] Last Admin: 06/21/17 10:37 Dose: 30 mg Methadone HCl (Methadone) 5 mg PO DAILY [facility] Last Admin: 06/21/17 10:37 Dose: 5 mg Rosuvastatin Calcium (Crestor) 10 mg PO HS [facility] Last Admin: 06/21/17 21:39 Dose: 10 mg - Labs Labs: 06/19/17 06:10 06/22/17 07:08 - Constitutional Appears: Well, Non-toxic, No Acute Distress - Extremities Exam Additional comments: Left lower extremity focused exam: VASC: DP and PT pulses are palpable, Temperature gradient WNL, INTERNAL SALESPERSON <3 seconds to all digits, no edema noted DERM: full thickness ulceration is noted to distal aspect of leg measures approximately 5 cm by 5 cm by 0.1 cm with mixed fibro-granular base, no malodor , no surrounding erythema, no ascending cellulitis, no purulence, slight serous drainage is noted, no fluctuance, no undermining, no probe to bone noted. NEURO: gross sensation diminished bilaterally ORTHO: tenderness with palpation of skin surrounding ulceration. - Neurological Exam Neurological Exam: Alert, Awake - Psychiatric Exam Psychiatric exam: Normal Affect, Normal Mood Assessment and Plan - Assessment and Plan (Free Text) Assessment: 56 year old female seen at bedside with chronic non-healing ulceration of left leg Plan: Patient seen and evaluated at bedside with attending Dr. Huynh Charts, labs and vitals reviewed; patient afebrile Wound culture final results- Pseudomonas Aeruginosa Urine culture final results- Enterococcus Faecium Patient to continue IV abx Full WBAT to left lower extremity Patient to OR on Saturday at 7:45 am for wound debridement with application of amniox graft Patient will be NPO Saturday night and will hold Lovenox 24 hours prior to the wound debridement procedure pending medical clearance Medical optimization is needed Podiatry will continue to monitor closely while patient in house
[2017-06-22 09:06] LABS: CHLORIDE 98 mmol/L (98-107); SODIUM 140 mmol/L (132-148)
[2017-06-22 09:09] LABS: GFR AFRICAN-AMERICAN > 60; POTASSIUM 5.5 mmol/L (3.6-5.2)
[2017-06-22 09:10] LABS: BLOOD UREA NITROGEN 23 mg/dL (7-17); CALCIUM 9.3 mg/dl (8.6-10.4); CARBON DIOXIDE 35 mmol/L (22-30); GLUCOSE,RANDOM 142 mg/dL (65-105)
[2017-06-22] MEDS: Methadone 40 mg Tab PO SCH (09:14)
[2017-06-22] MEDS: (Novolog) Insulin Aspart, Recombinant 100 u/ml 10 ml vial SC SCH ×4 (09:14→21:18)
[2017-06-22] MEDS: Enoxaparin 40 mg Syringe SC SCH (09:16)
[2017-06-22] MEDS ORDERED: Sod Polystyrene Sulf 15 gm/60 ml Oral Susp PO STA (09:17)
[2017-06-22] MEDS: (Novolog Mix 70/30) Insulin Aspart/Insulin Aspar 100 units/ml SC SCH (17:22)
--- NOTE | 2017-06-22 20:56 | CP.PCM.PN ---
Subjective - Date & Time of Evaluation Date of Evaluation: 06/22/17 Time of Evaluation: 20:56 - Subjective Subjective: afebrile, Clinically stable. Tolerating IV antibiotics On IV DAPTOMYCIN OD IV DAILY FOR VRE IN URINE IV Colistin 150 mg every 36 hourly FOR MDR PSEUDOMONAS AEROGENOSA. WILL REPEAT U/A AND URINE CULTURE IN AM. PT SHOULD HAVE -VE URINE/ WOUND CULTURES FOR GRAFTING NEXT WEEK. Objective - Vital Signs/Intake and Output Vital Signs (last 24 hours): Temp Pulse Resp BP Pulse Ox 98.6 F 76 18 136/74 98 06/22/17 18:52 06/22/17 18:52 06/22/17 18:52 06/22/17 18:52 06/22/17 16:24 Intake and Output: 06/22/17 06/23/17 18:59 06:59 Intake Total 1460 Balance 1460 - Medications Medications: Current Medications Carvedilol (Coreg) 3.125 mg PO BID [facility] Last Admin: 06/22/17 17:21 Dose: 3.125 mg Enoxaparin Sodium (Lovenox) 40 mg SC DAILY [facility] Stop: 06/23/17 07:45 Last Admin: 06/22/17 09:16 Dose: 40 mg Colistimethate Sodium 150 mg/ (Sodium Chloride) 100 mls @ 200 mls/hr IV Q36H [facility] Last Admin: 06/21/17 12:31 Dose: 200 mls/hr Daptomycin 410 mg/ Sodium (Chloride) 100 mls @ 100 mls/hr IV Q24H [facility] Stop: 06/26/17 15:31 Last Admin: 06/22/17 15:34 Dose: 100 mls/hr Insulin Aspart (Novolog) 0 unit SC ACHS [facility] PRN Reason: Protocol Last Admin: 06/22/17 16:40 Dose: 1 unit Insulin Aspart (Novolog Mix 70/30 (70/30 Units/Ml)) 36 units SC QPM [facility] Last Admin: 06/22/17 17:22 Dose: 36 units Losartan Potassium (Cozaar) 50 mg PO DAILY [facility] Last Admin: 06/18/17 11:49 Dose: 50 mg Methadone HCl (Methadose) 120 mg PO DAILY [facility] Last Admin: 06/22/17 09:14 Dose: 120 mg Methadone HCl (Methadone) 30 mg PO DAILY [facility] Last Admin: 06/22/17 09:14 Dose: 30 mg Methadone HCl (Methadone) 5 mg PO DAILY [facility] Last Admin: 06/22/17 09:15 Dose: 5 mg Rosuvastatin Calcium (Crestor) 10 mg PO HS [facility] Last Admin: 06/21/17 21:39 Dose: 10 mg - Labs Labs: 06/19/17 06:10 06/22/17 08:50 - Constitutional Appears: No Acute Distress - Head Exam Head Exam: NORMAL INSPECTION - Eye Exam Eye Exam: EOMI, PERRL - ENT Exam ENT Exam: Normal Oropharynx - Neck Exam Neck Exam: Normal Inspection - Respiratory Exam Respiratory Exam: Clear to Ausculation Bilateral - Cardiovascular Exam Cardiovascular Exam: REGULAR RHYTHM, +S1, +S2 - GI/Abdominal Exam GI & Abdominal Exam: Soft, Normal Bowel Sounds - Extremities Exam Extremities Exam: Pedal Edema. absent: Calf Tenderness Additional comments: left lower extremity in dressing. - Back Exam Back Exam: absent: CVA tenderness (L), CVA tenderness (R) - Neurological Exam Neurological Exam: Awake, CN II-XII Intact, Normal Gait, Oriented x3 - Psychiatric Exam Psychiatric exam: Normal Mood - Skin Skin Exam: Normal Color, Warm Assessment and Plan (1) Diabetic ulcer of lower extremity Status: Acute (2) Cellulitis Status: Acute (3) COPD (chronic obstructive pulmonary disease) Status: Chronic (4) HTN (hypertension) Status: Chronic (5) Acute prerenal azotemia Status: Acute (6) Uncontrolled diabetes mellitus Status: Chronic (7) UTI (urinary tract infection) due to Enterococcus Status: Acute
--- NOTE | 2017-06-22 23:48 | CP.PCM.PN ---
Subjective - Date & Time of Evaluation Date of Evaluation: 06/21/17 Time of Evaluation: 11:13 - Subjective Subjective: PAIN IN L LEG, NO SOB, COUGH, AND SHE WHEEZES AT TIMES,.NO FEVER. Objective - Vital Signs/Intake and Output Vital Signs (last 24 hours): Temp Pulse Resp BP Pulse Ox 98.6 F 76 18 136/74 98 06/22/17 18:52 06/22/17 18:52 06/22/17 18:52 06/22/17 18:52 06/22/17 16:24 Intake and Output: 06/22/17 06/23/17 18:59 06:59 Intake Total 1460 400 Balance 1460 400 - Medications Medications: Current Medications Carvedilol (Coreg) 3.125 mg PO BID [facility] Last Admin: 06/22/17 17:21 Dose: 3.125 mg Enoxaparin Sodium (Lovenox) 40 mg SC DAILY [facility] Stop: 06/23/17 07:45 Last Admin: 06/22/17 09:16 Dose: 40 mg Colistimethate Sodium 150 mg/ (Sodium Chloride) 100 mls @ 200 mls/hr IV Q36H [facility] Last Admin: 06/22/17 23:13 Dose: 200 mls/hr Daptomycin 410 mg/ Sodium (Chloride) 100 mls @ 100 mls/hr IV Q24H [facility] Stop: 06/26/17 15:31 Last Admin: 06/22/17 15:34 Dose: 100 mls/hr Insulin Aspart (Novolog) 0 unit SC ACHS [facility] PRN Reason: Protocol Last Admin: 06/22/17 21:18 Dose: Not Given Insulin Aspart (Novolog Mix 70/30 (70/30 Units/Ml)) 36 units SC QPM [facility] Last Admin: 06/22/17 17:22 Dose: 36 units Losartan Potassium (Cozaar) 50 mg PO DAILY [facility] Last Admin: 06/18/17 11:49 Dose: 50 mg Methadone HCl (Methadose) 120 mg PO DAILY [facility] Last Admin: 06/22/17 09:14 Dose: 120 mg Methadone HCl (Methadone) 30 mg PO DAILY [facility] Last Admin: 06/22/17 09:14 Dose: 30 mg Methadone HCl (Methadone) 5 mg PO DAILY [facility] Last Admin: 06/22/17 09:15 Dose: 5 mg Rosuvastatin Calcium (Crestor) 10 mg PO HS [facility] Last Admin: 06/22/17 21:20 Dose: 10 mg - Labs Labs: 06/19/17 06:10 06/22/17 08:50 - Constitutional Appears: Non-toxic, No Acute Distress, Chronically Ill - Head Exam Head Exam: ATRAUMATIC, NORMAL INSPECTION, NORMOCEPHALIC - Eye Exam Eye Exam: EOMI, Normal appearance, PERRL Pupil Exam: NORMAL ACCOMODATION - ENT Exam ENT Exam: Mucous Membranes Moist, Normal Exam, Normal Oropharynx, TM's Normal Bilaterally - Neck Exam Neck Exam: Normal Inspection - Respiratory Exam Respiratory Exam: Prolonged Expiratory Phase, Rhonchi, Wheezes - Cardiovascular Exam Cardiovascular Exam: Tachycardia, REGULAR RHYTHM, +S1, +S2 - GI/Abdominal Exam GI & Abdominal Exam: Soft, Normal Bowel Sounds - Rectal Exam Rectal Exam: NORMAL INSPECTION - Extremities Exam Extremities Exam: Normal Capillary Refill - Neurological Exam Neurological Exam: Alert, Awake, CN II-XII Intact, Normal Gait, Oriented x3 Neuro motor strength exam: Left Upper Extremity: 5, Right Upper Extremity: 5, Left Lower Extremity: 5, Right Lower Extremity: 5 - Psychiatric Exam Psychiatric exam: Anxious, Flat Affect - Skin Skin Exam: Intact Assessment and Plan (1) COPD (chronic obstructive pulmonary disease) Status: Chronic (2) Diabetic leg ulcer Status: Acute (3) HTN (hypertension) Status: Chronic (4) Uncontrolled diabetes mellitus Status: Chronic (5) UTI (urinary tract infection) due to Enterococcus Status: Acute
--- NOTE | 2017-06-22 23:51 | CP.PCM.PN ---
Subjective - Date & Time of Evaluation Date of Evaluation: 06/22/17 Time of Evaluation: 11:13 - Subjective Subjective: K IS HIGH, NO FEVER, NO NAUSEA, NO VOMITING Objective - Vital Signs/Intake and Output Vital Signs (last 24 hours): Temp Pulse Resp BP Pulse Ox 98.6 F 76 18 136/74 98 06/22/17 18:52 06/22/17 18:52 06/22/17 18:52 06/22/17 18:52 06/22/17 16:24 Intake and Output: 06/22/17 06/23/17 18:59 06:59 Intake Total 1460 400 Balance 1460 400 - Medications Medications: Current Medications Carvedilol (Coreg) 3.125 mg PO BID [facility] Last Admin: 06/22/17 17:21 Dose: 3.125 mg Enoxaparin Sodium (Lovenox) 40 mg SC DAILY [facility] Stop: 06/23/17 07:45 Last Admin: 06/22/17 09:16 Dose: 40 mg Colistimethate Sodium 150 mg/ (Sodium Chloride) 100 mls @ 200 mls/hr IV Q36H [facility] Last Admin: 06/22/17 23:13 Dose: 200 mls/hr Daptomycin 410 mg/ Sodium (Chloride) 100 mls @ 100 mls/hr IV Q24H [facility] Stop: 06/26/17 15:31 Last Admin: 06/22/17 15:34 Dose: 100 mls/hr Insulin Aspart (Novolog) 0 unit SC ACHS [facility] PRN Reason: Protocol Last Admin: 06/22/17 21:18 Dose: Not Given Insulin Aspart (Novolog Mix 70/30 (70/30 Units/Ml)) 36 units SC QPM [facility] Last Admin: 06/22/17 17:22 Dose: 36 units Losartan Potassium (Cozaar) 50 mg PO DAILY [facility] Last Admin: 06/18/17 11:49 Dose: 50 mg Methadone HCl (Methadose) 120 mg PO DAILY [facility] Last Admin: 06/22/17 09:14 Dose: 120 mg Methadone HCl (Methadone) 30 mg PO DAILY [facility] Last Admin: 06/22/17 09:14 Dose: 30 mg Methadone HCl (Methadone) 5 mg PO DAILY [facility] Last Admin: 06/22/17 09:15 Dose: 5 mg Rosuvastatin Calcium (Crestor) 10 mg PO HS [facility] Last Admin: 06/22/17 21:20 Dose: 10 mg - Labs Labs: 06/19/17 06:10 06/22/17 08:50 - Constitutional Appears: Non-toxic, No Acute Distress - Head Exam Head Exam: ATRAUMATIC, NORMAL INSPECTION, NORMOCEPHALIC - Eye Exam Eye Exam: EOMI, Normal appearance, PERRL Pupil Exam: NORMAL ACCOMODATION - ENT Exam ENT Exam: Mucous Membranes Moist, Normal Exam, Normal Oropharynx, TM's Normal Bilaterally - Neck Exam Neck Exam: Normal Inspection - Respiratory Exam Respiratory Exam: Decreased Breath Sounds, Rales, Rhonchi - Cardiovascular Exam Cardiovascular Exam: REGULAR RHYTHM, +S1, +S2 - GI/Abdominal Exam GI & Abdominal Exam: Soft, Normal Bowel Sounds - Extremities Exam Extremities Exam: Normal Capillary Refill, Normal Inspection, Pedal Edema - Neurological Exam Neurological Exam: Alert, Awake, CN II-XII Intact, Normal Gait, Oriented x3 Neuro motor strength exam: Left Upper Extremity: 5, Right Upper Extremity: 5, Left Lower Extremity: 5, Right Lower Extremity: 5 - Psychiatric Exam Psychiatric exam: Anxious, Flat Affect - Skin Skin Exam: Dry (WOUND L LEG) Assessment and Plan (1) COPD (chronic obstructive pulmonary disease) Status: Chronic (2) Diabetic leg ulcer Status: Acute (3) HTN (hypertension) Status: Chronic (4) Uncontrolled diabetes mellitus Status: Chronic (5) UTI (urinary tract infection) due to Enterococcus Status: Acute
[2017-06-23 09:00] LABS: CHLORIDE 97 mmol/L (98-107); POTASSIUM 4.7 mmol/L (3.6-5.2); SODIUM 142 mmol/L (132-148)
[2017-06-23 09:03] LABS: BLOOD UREA NITROGEN 14 mg/dL (7-17); CALCIUM 8.9 mg/dl (8.6-10.4); CARBON DIOXIDE 36 mmol/L (22-30); GFR AFRICAN-AMERICAN > 60; GLUCOSE,RANDOM 112 mg/dL (65-105)
[2017-06-23] MEDS: Methadone 40 mg Tab PO SCH (09:36)
[2017-06-23] MEDS: (Novolog) Insulin Aspart, Recombinant 100 u/ml 10 ml vial SC SCH ×4 (09:36→21:43)
[2017-06-23 10:28] LABS: RBC URINE < 1 /hpf (0-3); URINE BACTERIA RARE (<OCC); URINE BILIRUBIN NEGATIVE (NEGATIVE); URINE BLOOD NEGATIVE (NEGATIVE); URINE COLOR Straw (YELLOW); URINE GLUCOSE (UA) NORMAL (Normal); URINE KETONE NEGATIVE (NEGATIVE); URINE LEUKOCYTE ESTERASE NEG Leu/uL (Negative); URINE PROTEIN NEGATIVE (NEGATIVE); URINE UROBILINOGEN NORMAL mg/dL (0.2-1.0); WBC URINE < 1 /hpf (0-5)
--- NOTE | 2017-06-23 10:57 | CP.PCM.PCO ---
Physician Communication Note - Physician Communication Note Physician Communication Note: medically stable for or with average risk
[2017-06-23] MEDS: (Novolog Mix 70/30) Insulin Aspart/Insulin Aspar 100 units/ml SC SCH (17:34)
--- NOTE | 2017-06-23 22:10 | CP.PCM.PN ---
Subjective - Date & Time of Evaluation Date of Evaluation: 06/23/17 Time of Evaluation: 09:00 - Subjective Subjective: 57 year old female was seen for chronic left leg ulceration at bedside. Patient resting comfortably in bed, AAOx3, and in NAD. Patient denies any acute events overnight. Denies n/v/sob/cp/chills or fever. Patient is aware that she will go to surgery for debridement and application of graft of left leg ulcer Saturday at 7:45am. Patient is aware of NPO status, Lovenox held. Objective - Vital Signs/Intake and Output Vital Signs (last 24 hours): Temp Pulse Resp BP Pulse Ox 98.3 F 100 H 20 150/80 96 06/23/17 21:05 06/23/17 21:05 06/23/17 15:28 06/23/17 21:05 06/23/17 15:28 Intake and Output: 06/23/17 06/24/17 18:59 06:59 Intake Total 580 300 Balance 580 300 - Medications Medications: Current Medications Carvedilol (Coreg) 3.125 mg PO BID [facility] Last Admin: 06/23/17 17:33 Dose: 3.125 mg Colistimethate Sodium 150 mg/ (Sodium Chloride) 100 mls @ 200 mls/hr IV Q36H [facility] Last Admin: 06/22/17 23:13 Dose: 200 mls/hr Daptomycin 410 mg/ Sodium (Chloride) 100 mls @ 100 mls/hr IV Q24H [facility] Stop: 06/26/17 15:31 Last Admin: 06/23/17 15:30 Dose: 100 mls/hr Insulin Aspart (Novolog) 0 unit SC ACHS [facility] PRN Reason: Protocol Last Admin: 06/23/17 21:43 Dose: Not Given Insulin Aspart (Novolog Mix 70/30 (70/30 Units/Ml)) 36 units SC QPM [facility] Last Admin: 06/23/17 17:34 Dose: 36 units Losartan Potassium (Cozaar) 50 mg PO DAILY [facility] Last Admin: 06/18/17 11:49 Dose: 50 mg Methadone HCl (Methadose) 120 mg PO DAILY [facility] Last Admin: 06/23/17 09:36 Dose: 120 mg Methadone HCl (Methadone) 30 mg PO DAILY [facility] Last Admin: 06/23/17 09:35 Dose: 30 mg Methadone HCl (Methadone) 5 mg PO DAILY [facility] Last Admin: 06/23/17 09:35 Dose: 5 mg Rosuvastatin Calcium (Crestor) 10 mg PO HS [facility] Last Admin: 06/23/17 21:53 Dose: 10 mg - Labs Labs: 06/19/17 06:10 06/23/17 08:20 - Constitutional Appears: Well, Non-toxic, No Acute Distress - Extremities Exam Additional comments: Left lower extremity focused exam: VASC: DP and PT pulses are palpable, Temperature gradient WNL, 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 NEURO: gross sensation diminished bilaterally ORTHO: tenderness with palpation of skin surrounding ulceration. - Neurological Exam Neurological Exam: Alert, Awake, Oriented x3 - Psychiatric Exam Psychiatric exam: Normal Affect, Normal Mood Assessment and Plan - Assessment and Plan (Free Text) Assessment: 56 year old female seen at bedside with chronic non-healing ulceration of left leg Plan: Patient seen and evaluated at bedside Discussed plan in detail with Dr. Huynh Charts, labs and vitals reviewed; patient afebrile Wound culture final results- Pseudomonas Aeruginosa Urine culture final results- Enterococcus Faecium Patient to continue IV abx Full WBAT to left lower extremity Patient to OR on Saturday at 7:45 am for wound debridement with application of amniox graft Patient will be NPO Saturday night and will hold Lovenox 24 hours prior to the wound debridement procedure pending medical clearance Medical optimization is needed Podiatry will continue to monitor closely while patient in house
--- NOTE | 2017-06-23 22:37 | CP.PCM.PN ---
Subjective - Date & Time of Evaluation Date of Evaluation: 06/23/17 Time of Evaluation: 11:17 - Subjective Subjective: FOR OR IN AM , ALERT , AND STABLE, Objective - Vital Signs/Intake and Output Vital Signs (last 24 hours): Temp Pulse Resp BP Pulse Ox 98.3 F 100 H 20 150/80 96 06/23/17 21:05 06/23/17 21:05 06/23/17 15:28 06/23/17 21:05 06/23/17 15:28 Intake and Output: 06/23/17 06/24/17 18:59 06:59 Intake Total 580 300 Balance 580 300 - Medications Medications: Current Medications Carvedilol (Coreg) 3.125 mg PO BID [facility] Last Admin: 06/23/17 17:33 Dose: 3.125 mg Colistimethate Sodium 150 mg/ (Sodium Chloride) 100 mls @ 200 mls/hr IV Q36H [facility] Last Admin: 06/22/17 23:13 Dose: 200 mls/hr Daptomycin 410 mg/ Sodium (Chloride) 100 mls @ 100 mls/hr IV Q24H [facility] Stop: 06/26/17 15:31 Last Admin: 06/23/17 15:30 Dose: 100 mls/hr Insulin Aspart (Novolog) 0 unit SC ACHS [facility] PRN Reason: Protocol Last Admin: 06/23/17 21:43 Dose: Not Given Insulin Aspart (Novolog Mix 70/30 (70/30 Units/Ml)) 36 units SC QPM [facility] Last Admin: 06/23/17 17:34 Dose: 36 units Losartan Potassium (Cozaar) 50 mg PO DAILY [facility] Last Admin: 06/18/17 11:49 Dose: 50 mg Methadone HCl (Methadose) 120 mg PO DAILY [facility] Last Admin: 06/23/17 09:36 Dose: 120 mg Methadone HCl (Methadone) 30 mg PO DAILY [facility] Last Admin: 06/23/17 09:35 Dose: 30 mg Methadone HCl (Methadone) 5 mg PO DAILY [facility] Last Admin: 06/23/17 09:35 Dose: 5 mg Rosuvastatin Calcium (Crestor) 10 mg PO HS [facility] Last Admin: 06/23/17 21:53 Dose: 10 mg - Labs Labs: 06/19/17 06:10 06/23/17 08:20 - Constitutional Appears: Non-toxic, No Acute Distress - Head Exam Head Exam: ATRAUMATIC, NORMAL INSPECTION, NORMOCEPHALIC - Eye Exam Eye Exam: EOMI, Normal appearance, PERRL Pupil Exam: NORMAL ACCOMODATION - ENT Exam ENT Exam: Mucous Membranes Moist, Normal Exam, Normal Oropharynx, TM's Normal Bilaterally - Respiratory Exam Respiratory Exam: Decreased Breath Sounds, Rhonchi - Cardiovascular Exam Cardiovascular Exam: REGULAR RHYTHM, +S1, +S2 - GI/Abdominal Exam GI & Abdominal Exam: Soft, Normal Bowel Sounds - Neurological Exam Neurological Exam: Alert, Awake, CN II-XII Intact, Normal Gait, Oriented x3 Neuro motor strength exam: Left Upper Extremity: 5, Right Upper Extremity: 5, Left Lower Extremity: 5, Right Lower Extremity: 5 - Psychiatric Exam Psychiatric exam: Depressed - Skin Skin Exam: Dry Assessment and Plan (1) COPD (chronic obstructive pulmonary disease) Status: Chronic (2) Diabetic leg ulcer Assessment & Plan: FOR OR IN AM Status: Acute (3) HTN (hypertension) Status: Chronic (4) Uncontrolled diabetes mellitus Status: Chronic (5) UTI (urinary tract infection) due to Enterococcus Status: Acute
[2017-06-23 23:45] LABS: INR 0.9
[2017-06-24 06:42] LABS: BLOOD UREA NITROGEN 14 mg/dL (7-17); CALCIUM 9.2 mg/dl (8.6-10.4); CARBON DIOXIDE 39 mmol/L (22-30); CHLORIDE 96 mmol/L (98-107); GFR AFRICAN-AMERICAN > 60; GLUCOSE,RANDOM 73 mg/dL (65-105); POTASSIUM 4.4 mmol/L (3.6-5.2); SODIUM 140 mmol/L (132-148)
--- NOTE | 2017-06-24 07:16 | CP.PCM.PN ---
Subjective - Date & Time of Evaluation Date of Evaluation: 06/24/17 Time of Evaluation: 07:14 - Subjective Subjective: 57 year old female was seen at bedside resting comfortably this morning. She is aware that she is going for a wound debridement with application of graft this morning. NPO status confirmed. Objective - Vital Signs/Intake and Output Vital Signs (last 24 hours): Temp Pulse Resp BP Pulse Ox 97.8 F 75 20 152/99 H 96 06/24/17 02:40 06/24/17 02:40 06/24/17 02:40 06/24/17 02:40 06/24/17 02:40 Intake and Output: 06/24/17 06/24/17 06:59 18:59 Intake Total 300 Balance 300 - Medications Medications: Current Medications Carvedilol (Coreg) 3.125 mg PO BID [facility] Last Admin: 06/23/17 17:33 Dose: 3.125 mg Colistimethate Sodium 150 mg/ (Sodium Chloride) 100 mls @ 200 mls/hr IV Q36H [facility] Last Admin: 06/22/17 23:13 Dose: 200 mls/hr Daptomycin 410 mg/ Sodium (Chloride) 100 mls @ 100 mls/hr IV Q24H [facility] Stop: 06/26/17 15:31 Last Admin: 06/23/17 15:30 Dose: 100 mls/hr Insulin Aspart (Novolog) 0 unit SC ACHS [facility] PRN Reason: Protocol Last Admin: 06/23/17 21:43 Dose: Not Given Insulin Aspart (Novolog Mix 70/30 (70/30 Units/Ml)) 36 units SC QPM [facility] Last Admin: 06/23/17 17:34 Dose: 36 units Losartan Potassium (Cozaar) 50 mg PO DAILY [facility] Last Admin: 06/18/17 11:49 Dose: 50 mg Methadone HCl (Methadose) 120 mg PO DAILY [facility] Last Admin: 06/23/17 09:36 Dose: 120 mg Methadone HCl (Methadone) 30 mg PO DAILY [facility] Last Admin: 06/23/17 09:35 Dose: 30 mg Methadone HCl (Methadone) 5 mg PO DAILY [facility] Last Admin: 06/23/17 09:35 Dose: 5 mg Rosuvastatin Calcium (Crestor) 10 mg PO HS [facility] Last Admin: 06/23/17 21:53 Dose: 10 mg - Labs Labs: 06/19/17 06:10 06/24/17 06:22 PT 10.5 SECONDS (9.7-12.2) 06/23/17 23:34 INR 0.9 06/23/17 23:34 APTT 31 SECONDS (21-34) 06/23/17 23:34 - Constitutional Appears: Well, Non-toxic, No Acute Distress - Extremities Exam Additional comments: dressing c/d/i to LLE - Neurological Exam Neurological Exam: Alert, Awake, Oriented x3 - Psychiatric Exam Psychiatric exam: Normal Affect, Normal Mood Assessment and Plan - Assessment and Plan (Free Text) Assessment: 57 year old female with left leg ulceration Plan: Pt was seen and examined at bedside Pt NPO status was confirmed All Pre-op testing and clearance was in the chart Pt has exhausted all conservative treatment at this time and is opting for surgical intervention Pt was explained procedure and post-operative course All pt's questions were answered to satisfaction No guarantees were made Pt understands all risks, benefits and complications of procedure Pt will follow-up with Dr. Huynh
[2017-06-24 07:35] LABS: BASO # 0.1 K/uL (0.0-0.2); BASO % 0.9 % (0.0-2.0); EOS # 0.6 K/uL (0.0-0.7); EOS % 6.7 % (0.0-4.0); HEMATOCRIT 35.6 % (34.0-47.0); LYMPH # 3.4 K/uL (1.0-4.3); MEAN CELL VOLUME 73.3 fL (81.0-99.0); MEAN CORPUSCULAR HEMOGLOBIN 22.4 pg (27.0-31.0); MEAN CORPUSCULAR HGB CONC 30.5 g/dL (33.0-37.0); MEAN PLATELET VOLUME 9.1 fL (7.2-11.7); MONO # 0.6 K/uL (0.0-0.8); MONO % 7.5 % (0.0-10.0); NRBC % 0.1 % (0.0-2.0); RED CELL DISTRIBUTION WIDTH 15.7 % (11.5-14.5); WHITE BLOOD COUNT 8.4 K/uL (4.8-10.8)
[2017-06-24] MEDS: (Novolog) Insulin Aspart, Recombinant 100 u/ml 10 ml vial SC SCH ×4 (07:43→22:00)
[2017-06-24] MEDS: Methadone 40 mg Tab PO SCH ×2 (10:48→16:00)
[2017-06-24] MEDS ORDERED: Lidocaine 2% Inj (20ml) ONE (11:36)
[2017-06-24] MEDS ORDERED: Bupivacaine HCl 0.5% PF (10 ml) Inj ONE (11:36)
[2017-06-24] MEDS ORDERED: Midazolam 2 MG/2 ML VIAL ONE (11:41)
[2017-06-24] MEDS ORDERED: Propofol 10 mg/ml Inj (20 ML) ONE (11:42)
[2017-06-24] MEDS ORDERED: Lactated Ringer's 1,000 ML IV ONE (11:45)
--- NOTE | 2017-06-24 13:00 | RAD ---
PROCEDURE: Date of procedure: 06/21/2017 Procedure: 1. Placement of a right arm PICC with ultrasound and fluoroscopic guidance, CPT 82273 2. PICC tip confirmation with spot radiograph and is in the superior vena cava Medications: 4cc 1 percent lidocaine Total Fluoro time: 6.1 seconds Radiation: 3.489 MGy EBL: 2 cc HISTORY: Infection requiring long-term IV antibiotics TECHNIQUE: Following informed consent and procedure time-out, the patient was placed supine on the interventional table and the right arm prepped and draped in the usual sterile fashion. Ultrasound showed a patent and compressible right basilic vein. After the skin was anesthetized with lidocaine, the basilic vein was accessed with micro micropuncture technique using ultrasound guidance. A guidewire was then advanced under fluoroscopic guidance into the superior vena cava. An image documenting ultrasound guidance for vascular access was permanently saved. The length of the single-lumen 4 [place] PICC was trimmed to 39 centimeters and advanced through a peel-away sheath. The PICC was position with tip of PICC confirm a spot radiograph the superior vena cava. The PICC was secured to the patient's skin. The PICC was flushed. A biopatch and sterile dressing was applied. IMPRESSION: Placement of a single-lumen 4 [place] PICC trimmed to 39 centimeters via right basilic vein. The tip of the PICC is confirmed with spot radiograph and is in the superior vena cava.
--- NOTE | 2017-06-24 13:02 | US ---
Date of procedure: 06/21/2017 Procedure: Ultrasound guidance for vascular access HISTORY: Infection requiring long-term IV antibiotics TECHNIQUE: Following informed consent and procedure time-out, the patient placed supine on the interventional table and the right arm prepped and draped in the usual sterile fashion. Ultrasound showed a patent and compressible basilic vein. After the skin was anesthetized with lidocaine, the basilic vein was accessed with micro micropuncture technique using ultrasound guidance. An image documenting ultrasound guidance for vascular access was permanently saved. IMPRESSION: Ultrasound guidance for vascular access for placement of PICC.
--- NOTE | 2017-06-24 13:07 | PCM.SURG1 ---
Surgeon's Initial Post Op Note - Surgeon's Notes Surgeon: Dr. Fish Huynh, DPM Hot Baller: Dr. Philippe Albright, PGY1 Dr. Miriam Guerin, PGY1 Type of Anesthesia: IV Sedation, Local Anesthesia Administered By: Dr. Mays Pre-Operative Diagnosis: Nonhealing venous stasis ulceration Operative Findings: None. M- Amniox skin graft, 4-0 nylon. I- None Post-Operative Diagnosis: same Operation Performed: Punch biopsy and debridement of nonhealing left leg venous stasis ulcer with application of amniox skin graft Specimen/Specimens Removed: 2 mm punch biopsy x 4 from left leg ulceration Estimated Blood Loss: EBL {In ML}: 50 Blood Products Given: N/A Drains Used: No Drains Post-Op Condition: Good Date of Surgery/Procedure: 06/24/17 Time of Surgery/Procedure: 13:07
[2017-06-24] MEDS ORDERED: Oxycodone/Acetaminophen 5/325 mg Tab PO PRN (13:10)
[2017-06-24] MEDS ORDERED: Labetalol 25mg/5ml Syringe IV ONE (13:45)
--- NOTE | 2017-06-24 14:15 | CP.PCM.PN ---
Subjective - Date & Time of Evaluation Date of Evaluation: 06/24/17 Time of Evaluation: 14:15 - Subjective Subjective: afebrile, CLINICALLY STABLE OR today 06/24/17. S/P Punch biopsy and debridement of nonhealing left leg venous stasis ulcer with application of amniox skin REPEAT URINE CULTURES NEGATIVE GROWTH. Objective - Vital Signs/Intake and Output Vital Signs (last 24 hours): Temp Pulse Resp BP Pulse Ox 97.6 F 76 14 165/106 H 100 06/24/17 13:28 06/24/17 13:28 06/24/17 13:28 06/24/17 13:28 06/24/17 13:28 Intake and Output: 06/24/17 06/24/17 06:59 18:59 Intake Total 300 Balance 300 - Medications Medications: Current Medications Acetaminophen (Tylenol 325mg Tab) 650 mg PO Q6 PRN PRN Reason: Pain, Mild (1-3) Carvedilol (Coreg) 3.125 mg PO BID [facility] Last Admin: 06/24/17 09:18 Dose: 3.125 mg Colistimethate Sodium 150 mg/ (Sodium Chloride) 100 mls @ 200 mls/hr IV Q36H [facility] Last Admin: 06/22/17 23:13 Dose: 200 mls/hr Daptomycin 410 mg/ Sodium (Chloride) 100 mls @ 100 mls/hr IV Q24H [facility] Stop: 06/26/17 15:31 Last Admin: 06/23/17 15:30 Dose: 100 mls/hr Insulin Aspart (Novolog) 0 unit SC ACHS [facility] PRN Reason: Protocol Last Admin: 06/24/17 07:43 Dose: Not Given Insulin Aspart (Novolog Mix 70/30 (70/30 Units/Ml)) 36 units SC QPM [facility] Last Admin: 06/23/17 17:34 Dose: 36 units Losartan Potassium (Cozaar) 50 mg PO DAILY [facility] Last Admin: 06/18/17 11:49 Dose: 50 mg Methadone HCl (Methadose) 120 mg PO DAILY [facility] Last Admin: 06/24/17 10:48 Dose: Not Given Methadone HCl (Methadone) 30 mg PO DAILY [facility] Last Admin: 06/24/17 10:48 Dose: Not Given Methadone HCl (Methadone) 5 mg PO DAILY [facility] Last Admin: 06/24/17 10:48 Dose: Not Given Oxycodone/Acetaminophen (Percocet 5/325 Mg Tab) 1 tab PO Q4H PRN PRN Reason: Pain, moderate (4-7) Stop: 06/27/17 13:11 Oxycodone/Acetaminophen (Percocet 5/325 Mg Tab) 2 tab PO Q6H PRN PRN Reason: Pain, severe (8-10) Stop: 06/27/17 13:11 Rosuvastatin Calcium (Crestor) 10 mg PO HS [facility] Last Admin: 06/23/17 21:53 Dose: 10 mg - Labs Labs: 06/24/17 06:22 06/24/17 06:22 PT 10.5 SECONDS (9.7-12.2) 06/23/17 23:34 INR 0.9 06/23/17 23:34 APTT 31 SECONDS (21-34) 06/23/17 23:34 - Constitutional Appears: No Acute Distress - Head Exam Head Exam: NORMAL INSPECTION - Eye Exam Eye Exam: EOMI, PERRL - ENT Exam ENT Exam: Normal Oropharynx - Neck Exam Neck Exam: Normal Inspection - Respiratory Exam Respiratory Exam: Clear to Ausculation Bilateral - Cardiovascular Exam Cardiovascular Exam: REGULAR RHYTHM, +S1, +S2 - GI/Abdominal Exam GI & Abdominal Exam: Soft, Normal Bowel Sounds - Extremities Exam Extremities Exam: Pedal Edema (LEFT LEG IN DRESSING.). absent: Calf Tenderness - Neurological Exam Neurological Exam: Awake, Oriented x3 - Psychiatric Exam Psychiatric exam: Normal Mood - Skin Skin Exam: Normal Color, Warm Assessment and Plan (1) Diabetic ulcer of lower extremity Assessment & Plan: S/P OR TODAY. cONTINUE iv COLISTIN cONTINUE iv DAPTOMYCIN. Status: Acute (2) Cellulitis Status: Acute (3) COPD (chronic obstructive pulmonary disease) Status: Chronic (4) HTN (hypertension) Status: Chronic (5) Acute prerenal azotemia Status: Acute (6) Uncontrolled diabetes mellitus Status: Chronic (7) UTI (urinary tract infection) due to Enterococcus Status: Acute
[2017-06-24] MEDS: (Novolog Mix 70/30) Insulin Aspart/Insulin Aspar 100 units/ml SC SCH (17:12)
--- NOTE | 2017-06-24 23:05 | CP.PCM.PN ---
Subjective - Date & Time of Evaluation Date of Evaluation: 06/24/17 Time of Evaluation: 11:25 - Subjective Subjective: S/P GRAFT, FEELS BETTER, NO SOB, NO CHEST PAIN Objective - Vital Signs/Intake and Output Vital Signs (last 24 hours): Temp Pulse Resp BP Pulse Ox 98.4 F 80 20 133/82 96 06/24/17 15:53 06/24/17 15:53 06/24/17 15:53 06/24/17 15:53 06/24/17 15:53 Intake and Output: 06/24/17 06/25/17 18:59 06:59 Intake Total 440 300 Output Total 250 Balance 190 300 - Medications Medications: Current Medications Acetaminophen (Tylenol 325mg Tab) 650 mg PO Q6 PRN PRN Reason: Pain, Mild (1-3) Carvedilol (Coreg) 3.125 mg PO BID [facility] Last Admin: 06/24/17 17:36 Dose: 3.125 mg Colistimethate Sodium 150 mg/ (Sodium Chloride) 100 mls @ 200 mls/hr IV Q36H [facility] Last Admin: 06/22/17 23:13 Dose: 200 mls/hr Daptomycin 410 mg/ Sodium (Chloride) 100 mls @ 100 mls/hr IV Q24H [facility] Stop: 06/26/17 15:31 Last Admin: 06/24/17 16:30 Dose: 100 mls/hr Insulin Aspart (Novolog) 0 unit SC ACHS [facility] PRN Reason: Protocol Last Admin: 06/24/17 17:12 Dose: 2 unit Insulin Aspart (Novolog Mix 70/30 (70/30 Units/Ml)) 36 units SC QPM [facility] Last Admin: 06/24/17 17:12 Dose: 36 units Losartan Potassium (Cozaar) 50 mg PO DAILY [facility] Last Admin: 06/18/17 11:49 Dose: 50 mg Methadone HCl (Methadose) 120 mg PO DAILY [facility] Last Admin: 06/24/17 16:00 Dose: 120 mg Methadone HCl (Methadone) 30 mg PO DAILY [facility] Last Admin: 06/24/17 16:01 Dose: 30 mg Methadone HCl (Methadone) 5 mg PO DAILY [facility] Last Admin: 06/24/17 16:01 Dose: 5 mg Oxycodone/Acetaminophen (Percocet 5/325 Mg Tab) 1 tab PO Q4H PRN PRN Reason: Pain, moderate (4-7) Stop: 06/27/17 13:11 Oxycodone/Acetaminophen (Percocet 5/325 Mg Tab) 2 tab PO Q6H PRN PRN Reason: Pain, severe (8-10) Stop: 06/27/17 13:11 Rosuvastatin Calcium (Crestor) 10 mg PO HS [facility] Last Admin: 06/24/17 22:14 Dose: 10 mg - Labs Labs: 06/24/17 06:22 06/24/17 06:22 PT 10.5 SECONDS (9.7-12.2) 06/23/17 23:34 INR 0.9 06/23/17 23:34 APTT 31 SECONDS (21-34) 06/23/17 23:34 - Constitutional Appears: Non-toxic, No Acute Distress, Chronically Ill - Head Exam Head Exam: ATRAUMATIC, NORMAL INSPECTION, NORMOCEPHALIC - Eye Exam Eye Exam: EOMI, Normal appearance, PERRL Pupil Exam: NORMAL ACCOMODATION - ENT Exam ENT Exam: Mucous Membranes Moist, Normal Exam - Neck Exam Neck Exam: Normal Inspection - Respiratory Exam Respiratory Exam: Decreased Breath Sounds, Rhonchi - Cardiovascular Exam Cardiovascular Exam: REGULAR RHYTHM, +S1, +S2 - GI/Abdominal Exam GI & Abdominal Exam: Soft, Normal Bowel Sounds - Rectal Exam Rectal Exam: NORMAL INSPECTION - Extremities Exam Extremities Exam: Normal Capillary Refill, Pedal Edema - Neurological Exam Neurological Exam: Alert, Awake, CN II-XII Intact, Normal Gait, Oriented x3 Neuro motor strength exam: Left Upper Extremity: 5, Right Upper Extremity: 5, Left Lower Extremity: 5, Right Lower Extremity: 5 Assessment and Plan (1) COPD (chronic obstructive pulmonary disease) Status: Chronic (2) Diabetic leg ulcer Assessment & Plan: S/P GRAFT Status: Acute (3) HTN (hypertension) Status: Chronic (4) Uncontrolled diabetes mellitus Status: Chronic (5) UTI (urinary tract infection) due to Enterococcus Status: Acute
[2017-06-25] MEDS: Oxycodone/Acetaminophen 5/325 mg Tab PO PRN ×2 (00:44→21:23)
--- NOTE | 2017-06-25 01:09 | OP ---
PROCEDURE DATE: 06/24/2017 PREOPERATIVE DIAGNOSIS: Chronic non-healing venous stasis ulceration on medial left leg. POSTOPERATIVE DIAGNOSIS: Chronic non-healing venous stasis ulceration on medial left leg. NAME OF PROCEDURE: Biopsy and debridement of non-healing venous stasis ulcer of left leg with application of Amniox skin graft. SURGEON: Fish Huynh DPM ASSISTANTS: Dr. Philippe Albright, PGY-1 and Miriam Guerin, PGY-1. LEAD BURNER HELPER: Dr. Mays. TYPE OF ANESTHESIA: IV sedation with local. INDICATIONS: The patient is a 57-year-old female with the above diagnosis. The patient has exhausted all conservative treatment at this time and now requires surgical intervention. The patient signed the consent after careful explanation of risks, benefits, complications and alternatives for surgical procedure. No guarantees were given nor implied. NPO status was confirmed prior to taking the patient to the OR. PREPARATION: The patient was brought into the operating room and placed on the operating room table in a supine position. After induction of IV sedation, the patient received a total 20 mL of 1:1 mixture of 0.5% Marcaine plain and 2% Lidocaine plain in local block fashion to the left leg proximal to the ulcer site. Once local anesthesia was achieved, the left leg was then prepped and draped in usual normal sterile manner. No tourniquet was used during the procedure. DESCRIPTION OF PROCEDURE: Attention was then drawn to a non-healing venous stasis ulceration present on the patient's left anteromedial leg utilizing a 2 mm punch biopsy. 4 biopsy samples were taken from the ulcer site and sent to pathology for evaluation. Next, utilizing a curette, all nonviable tissue was manually excised from the base of the ulcer until healthy bleeding granular tissue was noted to be present throughout the entirety of ulcer base. Next, utilizing a Simpulse lavage, 3 L of normal sterile saline were used to copiously irrigate the ulceration site. Next, an Amniox skin graft was placed over the entirety of the ulcer site and sutures were placed using 4-0 nylon suture. Surgical site was then dressed with Adaptic gauze, Kerlix and Coban. The attending was present for the entirety of the case. POSTOPERATIVE CONDITION: The patient tolerated the anesthesia and procedure well and was escorted to the recovery room with vital signs stable and neurovascular status intact to the left foot and leg. Podiatry will continue to follow while the patient is in-house. Philippe Albright DPM [facility]
[2017-06-25] MEDS: (Novolog) Insulin Aspart, Recombinant 100 u/ml 10 ml vial SC SCH ×4 (07:30→21:25)
[2017-06-25] MEDS: Methadone 40 mg Tab PO SCH (10:52)
--- NOTE | 2017-06-25 12:05 | CP.PCM.PN ---
Subjective - Date & Time of Evaluation Date of Evaluation: 06/25/17 Time of Evaluation: 13:21 - Subjective Subjective: 57 year old female was seen resting comfortably at bedside with her feet dangling off the bed 1 day s/p left leg wound graft application. Patient states that her dressing is a little tight and admits to having some pain. She denies any n/v/f/c/sob/cp. Objective - Vital Signs/Intake and Output Vital Signs (last 24 hours): Temp Pulse Resp BP Pulse Ox 97.9 F 73 20 123/80 97 06/25/17 08:30 06/25/17 08:30 06/25/17 08:30 06/25/17 08:30 06/25/17 08:30 Intake and Output: 06/25/17 06/25/17 06:59 18:59 Intake Total 300 Balance 300 - Medications Medications: Current Medications Acetaminophen (Tylenol 325mg Tab) 650 mg PO Q6 PRN PRN Reason: Pain, Mild (1-3) Carvedilol (Coreg) 3.125 mg PO BID [facility] Last Admin: 06/25/17 10:53 Dose: 3.125 mg Colistimethate Sodium 150 mg/ (Sodium Chloride) 100 mls @ 200 mls/hr IV Q36H [facility] Last Admin: 06/24/17 11:30 Dose: Not Given Daptomycin 410 mg/ Sodium (Chloride) 100 mls @ 100 mls/hr IV Q24H [facility] Stop: 06/26/17 15:31 Last Admin: 06/24/17 16:30 Dose: 100 mls/hr Insulin Aspart (Novolog) 0 unit SC ACHS [facility] PRN Reason: Protocol Last Admin: 06/25/17 07:30 Dose: Not Given Insulin Aspart (Novolog Mix 70/30 (70/30 Units/Ml)) 36 units SC QPM [facility] Last Admin: 06/24/17 17:12 Dose: 36 units Losartan Potassium (Cozaar) 50 mg PO DAILY [facility] Last Admin: 06/18/17 11:49 Dose: 50 mg Methadone HCl (Methadose) 120 mg PO DAILY [facility] Last Admin: 06/25/17 10:52 Dose: 120 mg Methadone HCl (Methadone) 30 mg PO DAILY [facility] Last Admin: 06/25/17 10:52 Dose: 30 mg Methadone HCl (Methadone) 5 mg PO DAILY [facility] Last Admin: 06/25/17 10:53 Dose: 5 mg Oxycodone/Acetaminophen (Percocet 5/325 Mg Tab) 1 tab PO Q4H PRN PRN Reason: Pain, moderate (4-7) Stop: 06/27/17 13:11 Last Admin: 06/25/17 00:44 Dose: 1 tab Oxycodone/Acetaminophen (Percocet 5/325 Mg Tab) 2 tab PO Q6H PRN PRN Reason: Pain, severe (8-10) Stop: 06/27/17 13:11 Rosuvastatin Calcium (Crestor) 10 mg PO HS [facility] Last Admin: 06/24/17 22:14 Dose: 10 mg - Labs Labs: 06/24/17 06:22 06/24/17 06:22 PT 10.5 SECONDS (9.7-12.2) 06/23/17 23:34 INR 0.9 06/23/17 23:34 APTT 31 SECONDS (21-34) 06/23/17 23:34 - Constitutional Appears: Non-toxic, No Acute Distress - Extremities Exam Additional comments: dressing c/d/i to LLE - Neurological Exam Neurological Exam: Alert, Awake, Oriented x3 - Psychiatric Exam Psychiatric exam: Normal Affect, Normal Mood Assessment and Plan - Assessment and Plan (Free Text) Assessment: 57 year old female 1 day s/p left leg wound graft application Plan: patient examined and evaluated discussed with attending, Dr. Huynh labs, chart, vitals reviewed top layer of coban dressing was removed, and reapplyed less tight patient stated that the dressing feels better patient instructed to keep dressing c/d/i patient to keep leg elevated while in bed podiatry will continue to follow patient while in house
--- NOTE | 2017-06-25 16:50 | CP.PCM.PN ---
Subjective - Date & Time of Evaluation Date of Evaluation: 06/25/17 Time of Evaluation: 16:49 - Subjective Subjective: AFEBRILE, pOSTOPERATIVE LEFT LEG IN DRESSING AND Kae BANDAGE. oFFERS NO NEW COMPLAINTS. Objective - Vital Signs/Intake and Output Vital Signs (last 24 hours): Temp Pulse Resp BP Pulse Ox 98.2 F 81 22 130/84 96 06/25/17 16:01 06/25/17 16:01 06/25/17 16:01 06/25/17 16:01 06/25/17 16:01 Intake and Output: 06/25/17 06/25/17 06:59 18:59 Intake Total 300 580 Balance 300 580 - Medications Medications: Current Medications Acetaminophen (Tylenol 325mg Tab) 650 mg PO Q6 PRN PRN Reason: Pain, Mild (1-3) Carvedilol (Coreg) 3.125 mg PO BID [facility] Last Admin: 06/25/17 10:53 Dose: 3.125 mg Colistimethate Sodium 150 mg/ (Sodium Chloride) 100 mls @ 200 mls/hr IV Q36H [facility] Last Admin: 06/24/17 11:30 Dose: Not Given Daptomycin 410 mg/ Sodium (Chloride) 100 mls @ 100 mls/hr IV Q24H [facility] Stop: 06/26/17 15:31 Last Admin: 06/25/17 15:44 Dose: 100 mls/hr Insulin Aspart (Novolog) 0 unit SC ACHS [facility] PRN Reason: Protocol Last Admin: 06/25/17 16:28 Dose: 1 unit Insulin Aspart (Novolog Mix 70/30 (70/30 Units/Ml)) 36 units SC QPM [facility] Last Admin: 06/24/17 17:12 Dose: 36 units Losartan Potassium (Cozaar) 50 mg PO DAILY [facility] Last Admin: 06/18/17 11:49 Dose: 50 mg Methadone HCl (Methadose) 120 mg PO DAILY [facility] Last Admin: 06/25/17 10:52 Dose: 120 mg Methadone HCl (Methadone) 30 mg PO DAILY [facility] Last Admin: 06/25/17 10:52 Dose: 30 mg Methadone HCl (Methadone) 5 mg PO DAILY [facility] Last Admin: 06/25/17 10:53 Dose: 5 mg Oxycodone/Acetaminophen (Percocet 5/325 Mg Tab) 1 tab PO Q4H PRN PRN Reason: Pain, moderate (4-7) Stop: 06/27/17 13:11 Last Admin: 06/25/17 00:44 Dose: 1 tab Oxycodone/Acetaminophen (Percocet 5/325 Mg Tab) 2 tab PO Q6H PRN PRN Reason: Pain, severe (8-10) Stop: 06/27/17 13:11 Rosuvastatin Calcium (Crestor) 10 mg PO HS [facility] Last Admin: 06/24/17 22:14 Dose: 10 mg - Labs Labs: 06/24/17 06:22 06/24/17 06:22 PT 10.5 SECONDS (9.7-12.2) 06/23/17 23:34 INR 0.9 06/23/17 23:34 APTT 31 SECONDS (21-34) 06/23/17 23:34 - Constitutional Appears: No Acute Distress - Head Exam Head Exam: NORMAL INSPECTION - Eye Exam Eye Exam: EOMI, PERRL - ENT Exam ENT Exam: Normal Oropharynx - Neck Exam Neck Exam: Normal Inspection - Respiratory Exam Respiratory Exam: Clear to Ausculation Bilateral - Cardiovascular Exam Cardiovascular Exam: REGULAR RHYTHM, +S1, +S2 - GI/Abdominal Exam GI & Abdominal Exam: Soft, Normal Bowel Sounds - Extremities Exam Extremities Exam: Full ROM, Pedal Edema (LEFT LOWER EXTREMITY IN DRESSING AND Kae BANDAGE.). absent: Calf Tenderness - Neurological Exam Neurological Exam: Awake, CN II-XII Intact, Oriented x3 - Psychiatric Exam Psychiatric exam: Normal Mood - Skin Skin Exam: Normal Color, Warm Assessment and Plan (1) Diabetic ulcer of lower extremity Assessment & Plan: cONTINUE iv COLISTIN cONTINUE iv DAPTOMYCIN. Status: Acute (2) Cellulitis Status: Acute (3) COPD (chronic obstructive pulmonary disease) Status: Chronic (4) HTN (hypertension) Status: Chronic (5) Acute prerenal azotemia Status: Acute (6) Uncontrolled diabetes mellitus Status: Chronic (7) UTI (urinary tract infection) due to Enterococcus Status: Acute
[2017-06-25] MEDS: (Novolog Mix 70/30) Insulin Aspart/Insulin Aspar 100 units/ml SC SCH (17:51)
--- NOTE | 2017-06-25 23:10 | CP.PCM.PN ---
Subjective - Date & Time of Evaluation Date of Evaluation: 06/25/17 Time of Evaluation: 10:12 - Subjective Subjective: FEELS L LEG PAIN, COUGH AND OCC WHEEZING Objective - Vital Signs/Intake and Output Vital Signs (last 24 hours): Temp Pulse Resp BP Pulse Ox 98.2 F 81 22 130/84 96 06/25/17 16:01 06/25/17 16:01 06/25/17 16:01 06/25/17 16:01 06/25/17 16:01 Intake and Output: 06/25/17 06/26/17 18:59 06:59 Intake Total 580 Balance 580 - Medications Medications: Current Medications Acetaminophen (Tylenol 325mg Tab) 650 mg PO Q6 PRN PRN Reason: Pain, Mild (1-3) Carvedilol (Coreg) 3.125 mg PO BID ON LICENSE OF [facility] Last Admin: 06/25/17 17:50 Dose: 3.125 mg Colistimethate Sodium 150 mg/ (Sodium Chloride) 100 mls @ 200 mls/hr IV Q36H ON LICENSE OF [facility] Last Admin: 06/24/17 11:30 Dose: Not Given Daptomycin 410 mg/ Sodium (Chloride) 100 mls @ 100 mls/hr IV Q24H ON [facility] OF [facility] Stop: 06/26/17 15:31 Last Admin: 06/25/17 15:44 Dose: 100 mls/hr Insulin Aspart (Novolog) 0 unit SC ACHS ON [facility] OF [facility] PRN Reason: Protocol Last Admin: 06/25/17 21:25 Dose: Not Given Insulin Aspart (Novolog Mix 70/30 (70/30 Units/Ml)) 36 units SC QPM ON [facility] OF [facility] Last Admin: 06/25/17 17:51 Dose: 36 units Losartan Potassium (Cozaar) 50 mg PO DAILY [facility] OF [facility] Last Admin: 06/18/17 11:49 Dose: 50 mg Methadone HCl (Methadose) 120 mg PO DAILY [facility] OF [facility] Last Admin: 06/25/17 10:52 Dose: 120 mg Methadone HCl (Methadone) 30 mg PO DAILY [facility] Last Admin: 06/25/17 10:52 Dose: 30 mg Methadone HCl (Methadone) 5 mg PO DAILY [facility] Last Admin: 06/25/17 10:53 Dose: 5 mg Oxycodone/Acetaminophen (Percocet 5/325 Mg Tab) 1 tab PO Q4H PRN PRN Reason: Pain, moderate (4-7) Stop: 06/27/17 13:11 Last Admin: 06/25/17 21:23 Dose: 1 tab Oxycodone/Acetaminophen (Percocet 5/325 Mg Tab) 2 tab PO Q6H PRN PRN Reason: Pain, severe (8-10) Stop: 06/27/17 13:11 Rosuvastatin Calcium (Crestor) 10 mg PO HS [facility] Last Admin: 06/25/17 21:22 Dose: 10 mg - Labs Labs: 06/24/17 06:22 06/24/17 06:22 PT 10.5 SECONDS (9.7-12.2) 06/23/17 23:34 INR 0.9 06/23/17 23:34 APTT 31 SECONDS (21-34) 06/23/17 23:34 - Constitutional Appears: Non-toxic, No Acute Distress - Head Exam Head Exam: ATRAUMATIC, NORMAL INSPECTION, NORMOCEPHALIC - Eye Exam Eye Exam: EOMI, Normal appearance Pupil Exam: NORMAL ACCOMODATION - ENT Exam ENT Exam: Mucous Membranes Moist, Normal Exam - Neck Exam Neck Exam: Normal Inspection - Respiratory Exam Respiratory Exam: Rhonchi, NORMAL BREATHING PATTERN - Cardiovascular Exam Cardiovascular Exam: Tachycardia, REGULAR RHYTHM, +S1, +S2 - GI/Abdominal Exam GI & Abdominal Exam: Soft, Normal Bowel Sounds - Rectal Exam Rectal Exam: NORMAL INSPECTION - Extremities Exam Extremities Exam: Full ROM, Normal Capillary Refill, Pedal Edema - Neurological Exam Neurological Exam: Alert, Awake, CN II-XII Intact, Normal Gait, Oriented x3 Neuro motor strength exam: Left Upper Extremity: 5, Right Upper Extremity: 5, Left Lower Extremity: 5, Right Lower Extremity: 5 - Psychiatric Exam Psychiatric exam: Anxious, Depressed, Flat Affect - Skin Skin Exam: Intact Assessment and Plan (1) COPD (chronic obstructive pulmonary disease) Status: Chronic (2) Diabetic leg ulcer Assessment & Plan: ON ANTIBIOTICS, S/P GRAFT Status: Acute (3) HTN (hypertension) Status: Chronic (4) Uncontrolled diabetes mellitus Status: Chronic (5) UTI (urinary tract infection) due to Enterococcus Status: Acute
[2017-06-26] MEDS: (Novolog) Insulin Aspart, Recombinant 100 u/ml 10 ml vial SC SCH ×4 (08:00→22:46)
--- NOTE | 2017-06-26 09:26 | CP.PCM.PN ---
<Linsey Sanches - Last Filed: 06/26/17 12:45> Subjective - Date & Time of Evaluation Date of Evaluation: 06/26/17 Time of Evaluation: 09:26 - Subjective Subjective: 57 year old female was seen resting comfortably at bedside 2 day s/p left leg wound graft application. She admits that since she has been keeping her leg up , her pain is much less. She denies any n/v/f/c/sob/cp. Objective - Vital Signs/Intake and Output Vital Signs (last 24 hours): Temp Pulse Resp BP Pulse Ox 97.9 F 73 20 111/77 99 06/26/17 00:02 06/26/17 07:27 06/26/17 00:02 06/26/17 00:02 06/26/17 00:02 - Medications Medications: Current Medications Acetaminophen (Tylenol 325mg Tab) 650 mg PO Q6 PRN PRN Reason: Pain, Mild (1-3) Carvedilol (Coreg) 3.125 mg PO BID [facility] Last Admin: 06/25/17 17:50 Dose: 3.125 mg Colistimethate Sodium 150 mg/ (Sodium Chloride) 100 mls @ 200 mls/hr IV Q36H [facility] Last Admin: 06/25/17 23:34 Dose: 200 mls/hr Daptomycin 410 mg/ Sodium (Chloride) 100 mls @ 100 mls/hr IV Q24H [facility] Stop: 06/26/17 15:31 Last Admin: 06/25/17 15:44 Dose: 100 mls/hr Insulin Aspart (Novolog) 0 unit SC ACHS [facility] PRN Reason: Protocol Last Admin: 06/26/17 08:00 Dose: Not Given Insulin Aspart (Novolog Mix 70/30 (70/30 Units/Ml)) 36 units SC QPM [facility] Last Admin: 06/25/17 17:51 Dose: 36 units Losartan Potassium (Cozaar) 50 mg PO DAILY [facility] Last Admin: 06/18/17 11:49 Dose: 50 mg Methadone HCl (Methadose) 120 mg PO DAILY [facility] Last Admin: 06/25/17 10:52 Dose: 120 mg Methadone HCl (Methadone) 30 mg PO DAILY [facility] Last Admin: 06/25/17 10:52 Dose: 30 mg Methadone HCl (Methadone) 5 mg PO DAILY [facility] Last Admin: 06/25/17 10:53 Dose: 5 mg Oxycodone/Acetaminophen (Percocet 5/325 Mg Tab) 1 tab PO Q4H PRN PRN Reason: Pain, moderate (4-7) Stop: 06/27/17 13:11 Last Admin: 06/25/17 21:23 Dose: 1 tab Oxycodone/Acetaminophen (Percocet 5/325 Mg Tab) 2 tab PO Q6H PRN PRN Reason: Pain, severe (8-10) Stop: 06/27/17 13:11 Rosuvastatin Calcium (Crestor) 10 mg PO HS [facility] Last Admin: 06/25/17 21:22 Dose: 10 mg - Labs Labs: 06/24/17 06:22 06/24/17 06:22 PT 10.5 SECONDS (9.7-12.2) 06/23/17 23:34 INR 0.9 06/23/17 23:34 APTT 31 SECONDS (21-34) 06/23/17 23:34 - Constitutional Appears: Non-toxic, No Acute Distress - Extremities Exam Additional comments: dressing c/d/i to LLE - Neurological Exam Neurological Exam: Alert, Awake, Oriented x3 - Psychiatric Exam Psychiatric exam: Normal Affect, Normal Mood Assessment and Plan - Assessment and Plan (Free Text) Assessment: 57 year old female 2 day s/p left leg wound graft application Plan: patient examined and evaluated discussed with attending, Dr. Huynh labs, chart, vitals reviewed patient instructed to keep dressing c/d/i patient to keep leg elevated while in bed podiatry will continue to follow patient while in house <Fish Huynh - Last Filed: 06/26/17 19:43> Objective - Vital Signs/Intake and Output Vital Signs (last 24 hours): Temp Pulse Resp BP Pulse Ox 97.9 F 79 20 146/83 95 06/26/17 15:00 06/26/17 15:00 06/26/17 15:00 06/26/17 15:00 06/26/17 15:00 Intake and Output: 06/26/17 06/27/17 18:59 06:59 Intake Total 240 Balance 240 - Medications Medications: Current Medications Acetaminophen (Tylenol 325mg Tab) 650 mg PO Q6 PRN PRN Reason: Pain, Mild (1-3) Carvedilol (Coreg) 3.125 mg PO BID [facility] Last Admin: 06/26/17 18:15 Dose: 3.125 mg Colistimethate Sodium 150 mg/ (Sodium Chloride) 100 mls @ 200 mls/hr IV Q36H [facility] Last Admin: 06/25/17 23:34 Dose: 200 mls/hr Insulin Aspart (Novolog) 0 unit SC ACHS [facility] PRN Reason: Protocol Last Admin: 06/26/17 18:15 Dose: 2 unit Insulin Aspart (Novolog Mix 70/30 (70/30 Units/Ml)) 36 units SC QPM [facility] Last Admin: 06/26/17 18:15 Dose: 36 units Losartan Potassium (Cozaar) 50 mg PO DAILY [facility] Last Admin: 06/18/17 11:49 Dose: 50 mg Methadone HCl (Methadose) 120 mg PO DAILY [facility] Last Admin: 06/26/17 09:41 Dose: 120 mg Methadone HCl (Methadone) 30 mg PO DAILY [facility] Last Admin: 06/26/17 09:36 Dose: 30 mg Methadone HCl (Methadone) 5 mg PO DAILY [facility] Last Admin: 06/26/17 09:36 Dose: 5 mg Oxycodone/Acetaminophen (Percocet 5/325 Mg Tab) 1 tab PO Q4H PRN PRN Reason: Pain, moderate (4-7) Stop: 06/27/17 13:11 Last Admin: 06/25/17 21:23 Dose: 1 tab Oxycodone/Acetaminophen (Percocet 5/325 Mg Tab) 2 tab PO Q6H PRN PRN Reason: Pain, severe (8-10) Stop: 06/27/17 13:11 Rosuvastatin Calcium (Crestor) 10 mg PO HS [facility] Last Admin: 06/25/17 21:22 Dose: 10 mg - Labs Labs: 06/24/17 06:22 06/24/17 06:22 PT 10.5 SECONDS (9.7-12.2) 06/23/17 23:34 INR 0.9 06/23/17 23:34 APTT 31 SECONDS (21-34) 06/23/17 23:34 Assessment and Plan - Assessment and Plan (Free Text) Plan: Pt seen this Pm s/p graft 2 days .aeen at bedside .agree with above findings . Continue IV antibiotics .Dressing change in 5-7 days post op .DR Huynh .
[2017-06-26] MEDS: Methadone 40 mg Tab PO SCH (09:41)
[2017-06-26] MEDS: (Novolog Mix 70/30) Insulin Aspart/Insulin Aspar 100 units/ml SC SCH (18:15)
--- NOTE | 2017-06-26 23:01 | CP.PCM.PN ---
Subjective - Date & Time of Evaluation Date of Evaluation: 06/26/17 Time of Evaluation: 10:24 - Subjective Subjective: feels pain in leg, no sob Objective - Vital Signs/Intake and Output Vital Signs (last 24 hours): Temp Pulse Resp BP Pulse Ox 97.9 F 79 20 146/83 95 06/26/17 15:00 06/26/17 15:00 06/26/17 15:00 06/26/17 15:00 06/26/17 15:00 Intake and Output: 06/26/17 06/27/17 18:59 06:59 Intake Total 240 Balance 240 - Medications Medications: Current Medications Acetaminophen (Tylenol 325mg Tab) 650 mg PO Q6 PRN PRN Reason: Pain, Mild (1-3) Carvedilol (Coreg) 3.125 mg PO BID [facility] Last Admin: 06/26/17 18:15 Dose: 3.125 mg Colistimethate Sodium 150 mg/ (Sodium Chloride) 100 mls @ 200 mls/hr IV Q36H [facility] Last Admin: 06/25/17 23:34 Dose: 200 mls/hr Insulin Aspart (Novolog) 0 unit SC ACHS [facility] PRN Reason: Protocol Last Admin: 06/26/17 22:46 Dose: Not Given Insulin Aspart (Novolog Mix 70/30 (70/30 Units/Ml)) 36 units SC QPM [facility] Last Admin: 06/26/17 18:15 Dose: 36 units Losartan Potassium (Cozaar) 50 mg PO DAILY [facility] Last Admin: 06/18/17 11:49 Dose: 50 mg Methadone HCl (Methadose) 120 mg PO DAILY [facility] Last Admin: 06/26/17 09:41 Dose: 120 mg Methadone HCl (Methadone) 30 mg PO DAILY [facility] Last Admin: 06/26/17 09:36 Dose: 30 mg Methadone HCl (Methadone) 5 mg PO DAILY [facility] Last Admin: 06/26/17 09:36 Dose: 5 mg Oxycodone/Acetaminophen (Percocet 5/325 Mg Tab) 1 tab PO Q4H PRN PRN Reason: Pain, moderate (4-7) Stop: 06/27/17 13:11 Last Admin: 06/25/17 21:23 Dose: 1 tab Oxycodone/Acetaminophen (Percocet 5/325 Mg Tab) 2 tab PO Q6H PRN PRN Reason: Pain, severe (8-10) Stop: 06/27/17 13:11 Rosuvastatin Calcium (Crestor) 10 mg PO HS [facility] Last Admin: 06/26/17 21:45 Dose: 10 mg - Labs Labs: 06/24/17 06:22 06/24/17 06:22 PT 10.5 SECONDS (9.7-12.2) 06/23/17 23:34 INR 0.9 06/23/17 23:34 APTT 31 SECONDS (21-34) 06/23/17 23:34 - Constitutional Appears: Non-toxic, No Acute Distress, Chronically Ill - Head Exam Head Exam: ATRAUMATIC, NORMAL INSPECTION, NORMOCEPHALIC - Eye Exam Eye Exam: EOMI, Normal appearance Pupil Exam: NORMAL ACCOMODATION, PERRL - Respiratory Exam Respiratory Exam: NORMAL BREATHING PATTERN - Cardiovascular Exam Cardiovascular Exam: REGULAR RHYTHM - GI/Abdominal Exam GI & Abdominal Exam: Soft, Normal Bowel Sounds - Rectal Exam Rectal Exam: NORMAL INSPECTION - Neurological Exam Neurological Exam: Alert, Awake, CN II-XII Intact, Normal Gait, Oriented x3 Neuro motor strength exam: Left Upper Extremity: 5, Right Upper Extremity: 5, Left Lower Extremity: 5, Right Lower Extremity: 5 Assessment and Plan (1) COPD (chronic obstructive pulmonary disease) Status: Chronic (2) Diabetic leg ulcer Status: Acute (3) HTN (hypertension) Status: Chronic (4) Uncontrolled diabetes mellitus Status: Chronic (5) UTI (urinary tract infection) due to Enterococcus Status: Acute
[2017-06-27 04:58] LABS: WHITE BLOOD COUNT 7.9 K/uL (4.8-10.8)
[2017-06-27 05:01] LABS: CHLORIDE 98 mmol/L (98-107); SODIUM 142 mmol/L (132-148)
[2017-06-27 05:02] LABS: POTASSIUM 4.4 mmol/L (3.6-5.2)
[2017-06-27 05:03] LABS: BASO % 0.3 % (0.0-2.0); EOS # 0.4 K/uL (0.0-0.7); EOS % 4.9 % (0.0-4.0); HEMATOCRIT 35.3 % (34.0-47.0); LYMPH # 3.1 K/uL (1.0-4.3); LYMPH % 39.6 % (20.0-40.0); MEAN CORPUSCULAR HEMOGLOBIN 21.9 pg (27.0-31.0); MEAN PLATELET VOLUME 8.5 fL (7.2-11.7); MONO # 0.9 K/uL (0.0-0.8); MONO % 10.8 % (0.0-10.0); NRBC % 0.2 % (0.0-2.0); RED CELL DISTRIBUTION WIDTH 15.4 % (11.5-14.5)
[2017-06-27 05:04] LABS: GFR AFRICAN-AMERICAN > 60
[2017-06-27 05:05] LABS: BLOOD UREA NITROGEN 16 mg/dL (7-17); CALCIUM 8.5 mg/dl (8.6-10.4); CARBON DIOXIDE 37 mmol/L (22-30); GLUCOSE,RANDOM 111 mg/dL (65-105)
[2017-06-27] MEDS: (Novolog) Insulin Aspart, Recombinant 100 u/ml 10 ml vial SC SCH ×4 (07:30→21:46)
[2017-06-27] MEDS: Methadone 40 mg Tab PO SCH (10:34)
--- NOTE | 2017-06-27 10:52 | CP.PCM.PN ---
Subjective - Date & Time of Evaluation Date of Evaluation: 06/27/17 Time of Evaluation: 10:51 - Subjective Subjective: 57 year old female was seen resting comfortably at bedside 3 day s/p left leg wound graft application. She admits to less pain to her left leg. She denies any n/v/f/c/sob/cp. Objective - Vital Signs/Intake and Output Vital Signs (last 24 hours): Temp Pulse Resp BP Pulse Ox 98.2 F 86 20 141/83 95 06/27/17 08:57 06/27/17 08:57 06/27/17 08:57 06/27/17 08:57 06/27/17 08:57 - Medications Medications: Current Medications Acetaminophen (Tylenol 325mg Tab) 650 mg PO Q6 PRN PRN Reason: Pain, Mild (1-3) Carvedilol (Coreg) 3.125 mg PO BID [facility] Last Admin: 06/27/17 10:35 Dose: 3.125 mg Colistimethate Sodium 150 mg/ (Sodium Chloride) 100 mls @ 200 mls/hr IV Q36H [facility] Last Admin: 06/25/17 23:34 Dose: 200 mls/hr Insulin Aspart (Novolog) 0 unit SC ACHS [facility] PRN Reason: Protocol Last Admin: 06/26/17 22:46 Dose: Not Given Insulin Aspart (Novolog Mix 70/30 (70/30 Units/Ml)) 36 units SC QPM [facility] Last Admin: 06/26/17 18:15 Dose: 36 units Losartan Potassium (Cozaar) 50 mg PO DAILY [facility] Last Admin: 06/18/17 11:49 Dose: 50 mg Methadone HCl (Methadose) 120 mg PO DAILY [facility] Last Admin: 06/27/17 10:34 Dose: 120 mg Methadone HCl (Methadone) 30 mg PO DAILY [facility] Last Admin: 06/27/17 10:34 Dose: 30 mg Methadone HCl (Methadone) 5 mg PO DAILY [facility] Last Admin: 06/27/17 10:34 Dose: 5 mg Oxycodone/Acetaminophen (Percocet 5/325 Mg Tab) 1 tab PO Q4H PRN PRN Reason: Pain, moderate (4-7) Stop: 06/27/17 13:11 Last Admin: 06/25/17 21:23 Dose: 1 tab Oxycodone/Acetaminophen (Percocet 5/325 Mg Tab) 2 tab PO Q6H PRN PRN Reason: Pain, severe (8-10) Stop: 06/27/17 13:11 Rosuvastatin Calcium (Crestor) 10 mg PO HS [facility] Last Admin: 06/26/17 21:45 Dose: 10 mg - Labs Labs: 06/27/17 04:49 06/27/17 04:49 PT 10.5 SECONDS (9.7-12.2) 06/23/17 23:34 INR 0.9 06/23/17 23:34 APTT 31 SECONDS (21-34) 06/23/17 23:34 - Constitutional Appears: Well, Non-toxic, No Acute Distress - Extremities Exam Additional comments: dressing c/d/i to LLE - Neurological Exam Neurological Exam: Alert, Awake, Oriented x3 - Psychiatric Exam Psychiatric exam: Normal Affect, Normal Mood Assessment and Plan - Assessment and Plan (Free Text) Assessment: 57 year old female 3 day s/p left leg wound graft application Plan: patient examined and evaluated discussed with attending, Dr. Huynh labs, chart, vitals reviewed;afebrile, WBC 7.9 patient instructed to keep dressing c/d/i patient to keep leg elevated while in bed podiatry will continue to follow patient while in house
--- NOTE | 2017-06-27 12:55 | CP.PCM.PN ---
Subjective - Date & Time of Evaluation Date of Evaluation: 06/27/17 Time of Evaluation: 12:55 - Subjective Subjective: AFEBRILE, POSTOPERATIVE LEFT LEG IN DRESSING AND HARJINDER BANDAGE. NO NEW COMPLAINTS. RENAL FUNCTIONS STABLE NOW. CASE DISCUSSED WITH WHEELCHAIR VAN [employer]PER[employer] [facility]EE[facility]. WILL ADJUST DOSE OF iv COLISTIN TO 200 MG ONCE A DAY DAILY FOR 8 DAYS MORE PATIENT HAS A GRAFT LEFT LOWER LEG AND REPEAT CULTURES NOT AVAILABLE. fOLLOW-UP RENAL FUNCTIONS CLOSELY. Objective - Vital Signs/Intake and Output Vital Signs (last 24 hours): Temp Pulse Resp BP Pulse Ox 98.2 F 86 20 141/83 95 06/27/17 08:57 06/27/17 08:57 06/27/17 08:57 06/27/17 08:57 06/27/17 08:57 - Medications Medications: Current Medications Acetaminophen (Tylenol 325mg Tab) 650 mg PO Q6 PRN PRN Reason: Pain, Mild (1-3) Carvedilol (Coreg) 3.125 mg PO BID [facility] Last Admin: 06/27/17 10:35 Dose: 3.125 mg Colistimethate Sodium 150 mg/ (Sodium Chloride) 100 mls @ 200 mls/hr IV Q36H [facility] Last Admin: 06/27/17 12:01 Dose: 200 mls/hr Insulin Aspart (Novolog) 0 unit SC ACHS [facility] PRN Reason: Protocol Last Admin: 06/27/17 12:02 Dose: 2 unit Insulin Aspart (Novolog Mix 70/30 (70/30 Units/Ml)) 36 units SC QPM [facility] Last Admin: 06/26/17 18:15 Dose: 36 units Losartan Potassium (Cozaar) 50 mg PO DAILY [facility] Last Admin: 06/18/17 11:49 Dose: 50 mg Methadone HCl (Methadose) 120 mg PO DAILY [facility] Last Admin: 06/27/17 10:34 Dose: 120 mg Methadone HCl (Methadone) 30 mg PO DAILY [facility] Last Admin: 06/27/17 10:34 Dose: 30 mg Methadone HCl (Methadone) 5 mg PO DAILY [facility] Last Admin: 06/27/17 10:34 Dose: 5 mg Oxycodone/Acetaminophen (Percocet 5/325 Mg Tab) 1 tab PO Q4H PRN PRN Reason: Pain, moderate (4-7) Stop: 06/27/17 13:11 Last Admin: 06/25/17 21:23 Dose: 1 tab Oxycodone/Acetaminophen (Percocet 5/325 Mg Tab) 2 tab PO Q6H PRN PRN Reason: Pain, severe (8-10) Stop: 06/27/17 13:11 Rosuvastatin Calcium (Crestor) 10 mg PO HS [facility] Last Admin: 06/26/17 21:45 Dose: 10 mg - Labs Labs: 06/27/17 04:49 06/27/17 04:49 PT 10.5 SECONDS (9.7-12.2) 06/23/17 23:34 INR 0.9 06/23/17 23:34 APTT 31 SECONDS (21-34) 06/23/17 23:34 - Constitutional Appears: No Acute Distress - Head Exam Head Exam: NORMAL INSPECTION - Eye Exam Eye Exam: EOMI, PERRL - ENT Exam ENT Exam: Normal Oropharynx - Neck Exam Neck Exam: Normal Inspection - Respiratory Exam Respiratory Exam: Clear to Ausculation Bilateral - Cardiovascular Exam Cardiovascular Exam: REGULAR RHYTHM, +S1, +S2 - GI/Abdominal Exam GI & Abdominal Exam: Soft, Normal Bowel Sounds - Extremities Exam Extremities Exam: Pedal Edema (LEFT LEG AN Harjinder BANDAGE. mOVES ALL TOES.). absent: Calf Tenderness - Neurological Exam Neurological Exam: Awake, CN II-XII Intact, Normal Gait, Oriented x3 - Psychiatric Exam Psychiatric exam: Normal Mood - Skin Skin Exam: Normal Color, Warm Assessment and Plan (1) Diabetic ulcer of lower extremity Status: Acute (2) Cellulitis Status: Acute (3) COPD (chronic obstructive pulmonary disease) Status: Chronic (4) HTN (hypertension) Status: Chronic (5) Acute prerenal azotemia Status: Acute (6) Uncontrolled diabetes mellitus Status: Chronic (7) UTI (urinary tract infection) due to Enterococcus Status: Acute
[2017-06-27] MEDS ORDERED: (Novolog Mix 70/30) Insulin Aspart/Insulin Aspar 100 units/ml SC SCH (16:39)
--- NOTE | 2017-06-27 16:42 | CP.PCM.PN ---
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 Ludmila MONTES REGARDING DURATION OF ANTIBIOTICS RECOMMENDS TO CONTINUE COLISTIN Q 36 HRS X 10 MORE DAYS AND REPEAT WOUND CULTURE WHEN DRESSING DUE TO CHANGE Objective - Vital Signs/Intake and Output Vital Signs (last 24 hours): Temp Pulse Resp BP Pulse Ox 98.4 F 61 20 132/81 96 06/27/17 16:04 06/27/17 16:04 06/27/17 16:04 06/27/17 16:04 06/27/17 16:04 Intake and Output: 06/27/17 06/27/17 06:59 18:59 Intake Total 580 Balance 580 - Medications Medications: Current Medications Acetaminophen (Tylenol 325mg Tab) 650 mg PO Q6 PRN PRN Reason: Pain, Mild (1-3) Carvedilol (Coreg) 3.125 mg PO BID [facility] Last Admin: 06/27/17 10:35 Dose: 3.125 mg Colistimethate Sodium 150 mg/ (Sodium Chloride) 100 mls @ 200 mls/hr IV Q36H [facility] Last Admin: 06/27/17 12:01 Dose: 200 mls/hr Insulin Aspart (Novolog) 0 unit SC ACHS [facility] PRN Reason: Protocol Last Admin: 06/27/17 12:02 Dose: 2 unit Insulin Aspart (Novolog Mix 70/30 (70/30 Units/Ml)) 20 units SC ACBD [facility] Losartan Potassium (Cozaar) 50 mg PO DAILY [facility] Last Admin: 06/18/17 11:49 Dose: 50 mg Methadone HCl (Methadose) 120 mg PO DAILY [facility] Last Admin: 06/27/17 10:34 Dose: 120 mg Methadone HCl (Methadone) 30 mg PO DAILY [facility] Last Admin: 06/27/17 10:34 Dose: 30 mg Methadone HCl (Methadone) 5 mg PO DAILY [facility] Last Admin: 06/27/17 10:34 Dose: 5 mg Rosuvastatin Calcium (Crestor) 10 mg PO HS [facility] Last Admin: 06/26/17 21:45 Dose: 10 mg - Labs Labs: 06/27/17 04:49 06/27/17 04:49 PT 10.5 SECONDS (9.7-12.2) 06/23/17 23:34 INR 0.9 06/23/17 23:34 APTT 31 SECONDS (21-34) 06/23/17 23:34
--- NOTE | 2017-06-27 22:47 | CP.PCM.PN ---
Subjective - Date & Time of Evaluation Date of Evaluation: 06/27/17 - Subjective Subjective: ON IV ANTIBIOTICS Objective - Vital Signs/Intake and Output Vital Signs (last 24 hours): Temp Pulse Resp BP Pulse Ox 98.4 F 61 20 132/81 96 06/27/17 16:04 06/27/17 16:04 06/27/17 16:04 06/27/17 16:04 06/27/17 16:04 Intake and Output: 06/27/17 06/28/17 18:59 06:59 Intake Total 580 Balance 580 - Medications Medications: Current Medications Acetaminophen (Tylenol 325mg Tab) 650 mg PO Q6 PRN PRN Reason: Pain, Mild (1-3) Carvedilol (Coreg) 3.125 mg PO BID [facility] Last Admin: 06/27/17 18:26 Dose: 3.125 mg Colistimethate Sodium 150 mg/ (Sodium Chloride) 100 mls @ 200 mls/hr IV Q12H [facility] Insulin Aspart (Novolog) 0 unit SC ACHS [facility] PRN Reason: Protocol Last Admin: 06/27/17 21:46 Dose: Not Given Insulin Aspart (Novolog Mix 70/30 (70/30 Units/Ml)) 20 units SC ACBD [facility] Losartan Potassium (Cozaar) 50 mg PO DAILY [facility] Last Admin: 06/18/17 11:49 Dose: 50 mg Methadone HCl (Methadose) 120 mg PO DAILY [facility] Last Admin: 06/27/17 10:34 Dose: 120 mg Methadone HCl (Methadone) 30 mg PO DAILY [facility] Last Admin: 06/27/17 10:34 Dose: 30 mg Methadone HCl (Methadone) 5 mg PO DAILY [facility] Last Admin: 06/27/17 10:34 Dose: 5 mg Rosuvastatin Calcium (Crestor) 10 mg PO HS [facility] Last Admin: 06/27/17 21:44 Dose: 10 mg - Labs Labs: 06/27/17 04:49 06/27/17 04:49 PT 10.5 SECONDS (9.7-12.2) 06/23/17 23:34 INR 0.9 06/23/17 23:34 APTT 31 SECONDS (21-34) 06/23/17 23:34 - Constitutional Appears: Non-toxic, No Acute Distress - Head Exam Head Exam: NORMOCEPHALIC - Eye Exam Eye Exam: EOMI, Normal appearance, PERRL Pupil Exam: NORMAL ACCOMODATION - ENT Exam ENT Exam: Mucous Membranes Moist, Normal Exam - Neck Exam Neck Exam: Normal Inspection - Respiratory Exam Respiratory Exam: Clear to Ausculation Bilateral, NORMAL BREATHING PATTERN - Cardiovascular Exam Cardiovascular Exam: REGULAR RHYTHM, +S1, +S2 - GI/Abdominal Exam GI & Abdominal Exam: Soft, Normal Bowel Sounds Assessment and Plan (1) COPD (chronic obstructive pulmonary disease) Status: Chronic (2) Diabetic leg ulcer Status: Acute (3) HTN (hypertension) Status: Chronic (4) Uncontrolled diabetes mellitus Status: Chronic (5) UTI (urinary tract infection) due to Enterococcus Status: Acute
[2017-06-28] MEDS: (Novolog) Insulin Aspart, Recombinant 100 u/ml 10 ml vial SC SCH ×4 (07:30→22:39)
[2017-06-28] MEDS: Methadone 40 mg Tab PO SCH (09:08)
[2017-06-28] MEDS: (Novolog Mix 70/30) Insulin Aspart/Insulin Aspar 100 units/ml SC SCH ×2 (09:09→17:55)
--- NOTE | 2017-06-28 09:40 | CP.PCM.PN ---
Subjective - Date & Time of Evaluation Date of Evaluation: 06/28/17 Time of Evaluation: 09:40 - Subjective Subjective: pt seen s/p Amniox graft left lower leg . Objective - Vital Signs/Intake and Output Vital Signs (last 24 hours): Temp Pulse Resp BP Pulse Ox 98.1 F 82 20 125/88 96 06/28/17 07:00 06/28/17 07:00 06/28/17 07:00 06/28/17 07:00 06/28/17 07:00 - Medications Medications: Current Medications Acetaminophen (Tylenol 325mg Tab) 650 mg PO Q6 PRN PRN Reason: Pain, Mild (1-3) Carvedilol (Coreg) 3.125 mg PO BID [facility] Last Admin: 06/28/17 09:08 Dose: 3.125 mg Colistimethate Sodium 150 mg/ (Sodium Chloride) 100 mls @ 200 mls/hr IV Q12H [facility] Last Admin: 06/28/17 00:22 Dose: 200 mls/hr Insulin Aspart (Novolog) 0 unit SC ACHS [facility] PRN Reason: Protocol Last Admin: 06/28/17 07:30 Dose: Not Given Insulin Aspart (Novolog Mix 70/30 (70/30 Units/Ml)) 20 units SC ACBD [facility] Last Admin: 06/28/17 09:09 Dose: 20 units Losartan Potassium (Cozaar) 50 mg PO DAILY [facility] Last Admin: 06/18/17 11:49 Dose: 50 mg Methadone HCl (Methadose) 120 mg PO DAILY [facility] Last Admin: 06/28/17 09:08 Dose: 120 mg Methadone HCl (Methadone) 30 mg PO DAILY [facility] Last Admin: 06/28/17 09:08 Dose: 30 mg Methadone HCl (Methadone) 5 mg PO DAILY [facility] Last Admin: 06/28/17 09:08 Dose: 5 mg Rosuvastatin Calcium (Crestor) 10 mg PO HS [facility] Last Admin: 06/27/17 21:44 Dose: 10 mg - Labs Labs: 06/27/17 04:49 06/27/17 04:49 PT 10.5 SECONDS (9.7-12.2) 06/23/17 23:34 INR 0.9 06/23/17 23:34 APTT 31 SECONDS (21-34) 06/23/17 23:34
--- NOTE | 2017-06-28 14:52 | CP.PCM.PN ---
Subjective - Date & Time of Evaluation Date of Evaluation: 06/28/17 Time of Evaluation: 14:51 - Subjective Subjective: 57 year old female was seen resting comfortably at bedside 4 day s/p left leg wound graft application. She denies any n/v/f/c/sob/cp. Objective - Vital Signs/Intake and Output Vital Signs (last 24 hours): Temp Pulse Resp BP Pulse Ox 98.1 F 82 20 125/88 96 06/28/17 07:00 06/28/17 07:00 06/28/17 07:00 06/28/17 07:00 06/28/17 07:00 - Medications Medications: Current Medications Acetaminophen (Tylenol 325mg Tab) 650 mg PO Q6 PRN PRN Reason: Pain, Mild (1-3) Carvedilol (Coreg) 3.125 mg PO BID [facility] Last Admin: 06/28/17 09:08 Dose: 3.125 mg Colistimethate Sodium 150 mg/ (Sodium Chloride) 100 mls @ 200 mls/hr IV Q12H [facility] Last Admin: 06/28/17 13:19 Dose: 200 mls/hr Insulin Aspart (Novolog) 0 unit SC ACHS [facility] PRN Reason: Protocol Last Admin: 06/28/17 13:19 Dose: Not Given Insulin Aspart (Novolog Mix 70/30 (70/30 Units/Ml)) 20 units SC ACBD [facility] Last Admin: 06/28/17 09:09 Dose: 20 units Losartan Potassium (Cozaar) 50 mg PO DAILY [facility] Last Admin: 06/18/17 11:49 Dose: 50 mg Methadone HCl (Methadose) 120 mg PO DAILY [facility] Last Admin: 06/28/17 09:08 Dose: 120 mg Methadone HCl (Methadone) 30 mg PO DAILY [facility] Last Admin: 06/28/17 09:08 Dose: 30 mg Methadone HCl (Methadone) 5 mg PO DAILY [facility] Last Admin: 06/28/17 09:08 Dose: 5 mg Rosuvastatin Calcium (Crestor) 10 mg PO HS [facility] Last Admin: 06/27/17 21:44 Dose: 10 mg - Labs Labs: 06/27/17 04:49 06/27/17 04:49 PT 10.5 SECONDS (9.7-12.2) 06/23/17 23:34 INR 0.9 06/23/17 23:34 APTT 31 SECONDS (21-34) 06/23/17 23:34 - Constitutional Appears: Well, Non-toxic, No Acute Distress - Extremities Exam Additional comments: dressing c/d/i to LLE - Neurological Exam Neurological Exam: Alert, Awake, Oriented x3 - Psychiatric Exam Psychiatric exam: Normal Affect, Normal Mood Assessment and Plan - Assessment and Plan (Free Text) Assessment: 57 year old female 4 day s/p left leg wound graft application Plan: patient examined and evaluated discussed with attending, Dr. Huynh labs, chart, vitals reviewed;afebrile patient instructed to keep dressing c/d/i patient to keep leg elevated while in bed dressing to be changed tomorrow with attending, Dr. Huynh patient stable for d/c per podiatry and will follow up with Dr. Huynh upon d/c podiatry will continue to follow patient while in house
--- NOTE | 2017-06-28 23:41 | CP.PCM.PN ---
Subjective - Date & Time of Evaluation Date of Evaluation: 06/28/17 - Subjective Subjective: FEELS BETTER, NO SOB Objective - Vital Signs/Intake and Output Vital Signs (last 24 hours): Temp Pulse Resp BP Pulse Ox 97.8 F 85 20 147/89 95 06/28/17 15:04 06/28/17 15:04 06/28/17 15:04 06/28/17 15:04 06/28/17 15:04 Intake and Output: 06/28/17 06/29/17 18:59 06:59 Intake Total 580 Balance 580 - Medications Medications: Current Medications Acetaminophen (Tylenol 325mg Tab) 650 mg PO Q6 PRN PRN Reason: Pain, Mild (1-3) Carvedilol (Coreg) 3.125 mg PO BID [facility] Last Admin: 06/28/17 17:55 Dose: 3.125 mg Colistimethate Sodium 150 mg/ (Sodium Chloride) 100 mls @ 200 mls/hr IV Q12H [facility] Last Admin: 06/28/17 13:19 Dose: 200 mls/hr Insulin Aspart (Novolog) 0 unit SC ACHS [facility] PRN Reason: Protocol Last Admin: 06/28/17 22:39 Dose: Not Given Insulin Aspart (Novolog Mix 70/30 (70/30 Units/Ml)) 20 units SC ACBD [facility] Last Admin: 06/28/17 17:55 Dose: 20 units Losartan Potassium (Cozaar) 50 mg PO DAILY [facility] Last Admin: 06/18/17 11:49 Dose: 50 mg Methadone HCl (Methadose) 120 mg PO DAILY [facility] Last Admin: 06/28/17 09:08 Dose: 120 mg Methadone HCl (Methadone) 30 mg PO DAILY [facility] Last Admin: 06/28/17 09:08 Dose: 30 mg Methadone HCl (Methadone) 5 mg PO DAILY [facility] Last Admin: 06/28/17 09:08 Dose: 5 mg Rosuvastatin Calcium (Crestor) 10 mg PO HS [facility] Last Admin: 06/28/17 21:17 Dose: 10 mg - Labs Labs: 06/27/17 04:49 06/27/17 04:49 PT 10.5 SECONDS (9.7-12.2) 06/23/17 23:34 INR 0.9 06/23/17 23:34 APTT 31 SECONDS (21-34) 06/23/17 23:34 - Constitutional Appears: Non-toxic, No Acute Distress - Head Exam Head Exam: ATRAUMATIC, NORMAL INSPECTION, NORMOCEPHALIC - Eye Exam Eye Exam: EOMI, Normal appearance, PERRL Pupil Exam: NORMAL ACCOMODATION - ENT Exam ENT Exam: Mucous Membranes Moist, Normal Exam, Normal Oropharynx, TM's Normal Bilaterally - Neck Exam Neck Exam: Full ROM, Normal Inspection - Respiratory Exam Respiratory Exam: Clear to Ausculation Bilateral, NORMAL BREATHING PATTERN - Cardiovascular Exam Cardiovascular Exam: REGULAR RHYTHM, +S1, +S2 - GI/Abdominal Exam GI & Abdominal Exam: Soft, Normal Bowel Sounds - Neurological Exam Neurological Exam: Alert, Awake, CN II-XII Intact, Normal Gait, Oriented x3 Neuro motor strength exam: Left Upper Extremity: 5, Right Upper Extremity: 5, Left Lower Extremity: 5, Right Lower Extremity: 5 Assessment and Plan (1) COPD (chronic obstructive pulmonary disease) Status: Chronic (2) Diabetic leg ulcer Status: Acute (3) HTN (hypertension) Status: Chronic (4) Uncontrolled diabetes mellitus Status: Chronic (5) UTI (urinary tract infection) due to Enterococcus Status: Acute
--- NOTE | 2017-06-28 23:43 | CP.PCM.PN ---
Subjective - Date & Time of Evaluation Date of Evaluation: 06/28/17 Time of Evaluation: 23:43 - Subjective Subjective: AFEBRILE, POSTOPERATIVE LEFT LEG IN DRESSING AND HARJINDER BANDAGE. NO NEW COMPLAINTS. RENAL FUNCTIONS STABLE NOW. CASE DISCUSSED WITH PHARMACY WILL ADJUST DOSE OF iv COLISTIN TO 150MG iv EVERY 12 HOURLY DAILY FOR 7 DAYS MORE PATIENT HAS A GRAFT LEFT LOWER LEG AND REPEAT CULTURES NOT AVAILABLE. fOLLOW-UP RENAL FUNCTIONS CLOSELY. Objective - Vital Signs/Intake and Output Vital Signs (last 24 hours): Temp Pulse Resp BP Pulse Ox 97.8 F 85 20 147/89 95 06/28/17 15:04 06/28/17 15:04 06/28/17 15:04 06/28/17 15:04 06/28/17 15:04 Intake and Output: 06/28/17 06/29/17 18:59 06:59 Intake Total 580 Balance 580 - Medications Medications: Current Medications Acetaminophen (Tylenol 325mg Tab) 650 mg PO Q6 PRN PRN Reason: Pain, Mild (1-3) Carvedilol (Coreg) 3.125 mg PO BID [facility] Last Admin: 06/28/17 17:55 Dose: 3.125 mg Colistimethate Sodium 150 mg/ (Sodium Chloride) 100 mls @ 200 mls/hr IV Q12H [facility] Last Admin: 06/28/17 13:19 Dose: 200 mls/hr Insulin Aspart (Novolog) 0 unit SC ACHS [facility] PRN Reason: Protocol Last Admin: 06/28/17 22:39 Dose: Not Given Insulin Aspart (Novolog Mix 70/30 (70/30 Units/Ml)) 20 units SC ACBD [facility] Last Admin: 06/28/17 17:55 Dose: 20 units Losartan Potassium (Cozaar) 50 mg PO DAILY [facility] Last Admin: 06/18/17 11:49 Dose: 50 mg Methadone HCl (Methadose) 120 mg PO DAILY [facility] Last Admin: 06/28/17 09:08 Dose: 120 mg Methadone HCl (Methadone) 30 mg PO DAILY [facility] Last Admin: 06/28/17 09:08 Dose: 30 mg Methadone HCl (Methadone) 5 mg PO DAILY [facility] Last Admin: 06/28/17 09:08 Dose: 5 mg Rosuvastatin Calcium (Crestor) 10 mg PO HS [facility] Last Admin: 06/28/17 21:17 Dose: 10 mg - Labs Labs: 06/27/17 04:49 06/27/17 04:49 PT 10.5 SECONDS (9.7-12.2) 06/23/17 23:34 INR 0.9 06/23/17 23:34 APTT 31 SECONDS (21-34) 06/23/17 23:34 Assessment and Plan (1) Diabetic ulcer of lower extremity Status: Acute (2) Cellulitis Status: Acute (3) COPD (chronic obstructive pulmonary disease) Status: Chronic (4) HTN (hypertension) Status: Chronic (5) Acute prerenal azotemia Status: Acute (6) Uncontrolled diabetes mellitus Status: Chronic (7) UTI (urinary tract infection) due to Enterococcus Status: Acute
[2017-06-29] MEDS: (Novolog) Insulin Aspart, Recombinant 100 u/ml 10 ml vial SC SCH ×4 (07:15→21:55)
[2017-06-29] MEDS: (Novolog Mix 70/30) Insulin Aspart/Insulin Aspar 100 units/ml SC SCH ×2 (09:06→17:41)
[2017-06-29] MEDS: Methadone 40 mg Tab PO SCH (09:06)
--- NOTE | 2017-06-29 10:00 | CP.PCM.PN ---
<Fish Huynh - Last Filed: 06/29/17 09:58> Subjective - Date & Time of Evaluation Date of Evaluation: 06/29/17 Time of Evaluation: 09:30 - Subjective Subjective: Pt seen s/p debridement and grafting left ulcer lower leg . No Complaints today. Objective - Vital Signs/Intake and Output Vital Signs (last 24 hours): Temp Pulse Resp BP Pulse Ox 97.8 F 79 18 153/79 H 94 L 06/29/17 07:05 06/29/17 07:05 06/29/17 07:05 06/29/17 07:05 06/29/17 07:05 - Medications Medications: Current Medications Acetaminophen (Tylenol 325mg Tab) 650 mg PO Q6 PRN PRN Reason: Pain, Mild (1-3) Carvedilol (Coreg) 3.125 mg PO BID [facility] Last Admin: 06/29/17 09:08 Dose: 3.125 mg Colistimethate Sodium 150 mg/ (Sodium Chloride) 100 mls @ 200 mls/hr IV Q12H [facility] Last Admin: 06/29/17 00:12 Dose: 200 mls/hr Insulin Aspart (Novolog) 0 unit SC ACHS [facility] PRN Reason: Protocol Last Admin: 06/29/17 07:15 Dose: Not Given Insulin Aspart (Novolog Mix 70/30 (70/30 Units/Ml)) 20 units SC ACBD [facility] Last Admin: 06/29/17 09:06 Dose: 20 units Losartan Potassium (Cozaar) 50 mg PO DAILY [facility] Last Admin: 06/18/17 11:49 Dose: 50 mg Methadone HCl (Methadose) 120 mg PO DAILY [facility] Last Admin: 06/29/17 09:06 Dose: 120 mg Methadone HCl (Methadone) 30 mg PO DAILY [facility] Last Admin: 06/29/17 09:06 Dose: 30 mg Methadone HCl (Methadone) 5 mg PO DAILY [facility] Last Admin: 06/29/17 09:06 Dose: 5 mg Rosuvastatin Calcium (Crestor) 10 mg PO HS [facility] Last Admin: 06/28/17 21:17 Dose: 10 mg - Labs Labs: 06/27/17 04:49 06/27/17 04:49 PT 10.5 SECONDS (9.7-12.2) 06/23/17 23:34 INR 0.9 06/23/17 23:34 APTT 31 SECONDS (21-34) 06/23/17 23:34 <PierreNicole - Last Filed: 06/29/17 15:38> Subjective - Subjective Subjective: 57 year old female was seen with attending Dr. Huynh concerning prognosis 5 days s/p left leg wound graft application. She denies any n/v/f/c/sob/cp. Objective - Vital Signs/Intake and Output Vital Signs (last 24 hours): Temp Pulse Resp BP Pulse Ox 98.5 F 75 20 122/71 97 06/29/17 14:26 06/29/17 14:26 06/29/17 14:26 06/29/17 14:26 06/29/17 14:26 - Medications Medications: Current Medications Acetaminophen (Tylenol 325mg Tab) 650 mg PO Q6 PRN PRN Reason: Pain, Mild (1-3) Albuterol/Ipratropium (Duoneb 3 Mg/0.5 Mg (3 Ml) Ud) 3 ml INH RQ6 [facility] Carvedilol (Coreg) 3.125 mg PO BID [facility] Last Admin: 06/29/17 09:08 Dose: 3.125 mg Enoxaparin Sodium (Lovenox) 40 mg SC DAILY [facility] Colistimethate Sodium 150 mg/ (Sodium Chloride) 100 mls @ 200 mls/hr IV Q12H [facility] Last Admin: 06/29/17 11:42 Dose: 200 mls/hr Insulin Aspart (Novolog) 0 unit SC ACHS [facility] PRN Reason: Protocol Last Admin: 06/29/17 11:30 Dose: Not Given Insulin Aspart (Novolog Mix 70/30 (70/30 Units/Ml)) 20 units SC ACBD [facility] Last Admin: 06/29/17 09:06 Dose: 20 units Losartan Potassium (Cozaar) 50 mg PO DAILY [facility] Last Admin: 06/29/17 11:49 Dose: 50 mg Methadone HCl (Methadose) 120 mg PO DAILY [facility] Last Admin: 06/29/17 09:06 Dose: 120 mg Methadone HCl (Methadone) 30 mg PO DAILY [facility] Last Admin: 06/29/17 09:06 Dose: 30 mg Methadone HCl (Methadone) 5 mg PO DAILY [facility] Last Admin: 06/29/17 09:06 Dose: 5 mg Rosuvastatin Calcium (Crestor) 10 mg PO HS [facility] Last Admin: 06/28/17 21:17 Dose: 10 mg - Labs Labs: 06/27/17 04:49 06/27/17 04:49 PT 10.5 SECONDS (9.7-12.2) 06/23/17 23:34 INR 0.9 06/23/17 23:34 APTT 31 SECONDS (21-34) 06/23/17 23:34 - Constitutional Appears: Well, Non-toxic, No Acute Distress - Extremities Exam Additional comments: Left lower extremity focused. Dressing c/d/i. VASC: DP and PT pulses are palpable, Temperature gradient WNL, [employer] <3 seconds to all digits, no edema noted DERM: Full thickness ulceration is noted to distal aspect of leg measures approximately 4.7 x 5.2 x 0.2 cm with mixed fibro-granular base and wound graft fully incorporated into wound base, only lion marginal excess remains of graft. All suture anchors remain intact. No malodor, no surrounding erythema, no ascending cellulitis, no purulence, slight serous drainage is noted, no fluctuance, no undermining, no probe to bone noted. NEURO: gross sensation diminished bilaterally ORTHO: tenderness with palpation of skin surrounding ulceration. - Neurological Exam Neurological Exam: Alert, Awake, Oriented x3 - Psychiatric Exam Psychiatric exam: Normal Affect, Normal Mood Assessment and Plan - Assessment and Plan (Free Text) Assessment: 57 year old female 5 day s/p left leg wound graft application Plan: Patient examined and evaluated with attending, Dr. Huynh. labs, chart, vitals reviewed;afebrile Wound culture taken at request of ID for outpatient abx planning. Wound redressed with xeroform gauze, DSD, and Coban throughout lower extremity for leg compression patient stable for d/c per podiatry and will follow up with Dr. Huynh upon d/c podiatry will continue to follow patient while in house
[2017-06-29] MEDS ORDERED: Albuterol-Ipratrop 3 mg / 0.5 (3 ml) UD INH STA (15:10)
[2017-06-29] MEDS: Enoxaparin 40 mg Syringe SC SCH (17:41)
[2017-06-29] MEDS: Albuterol-Ipratrop 3 mg / 0.5 (3 ml) UD INH SCH (20:02)
[2017-06-30] MEDS: Albuterol-Ipratrop 3 mg / 0.5 (3 ml) UD INH SCH ×3 (01:34→19:15)
[2017-06-30] MEDS: (Novolog) Insulin Aspart, Recombinant 100 u/ml 10 ml vial SC SCH ×4 (08:01→21:14)
[2017-06-30 08:59] LABS: MEAN CELL VOLUME 73.6 fL (81.0-99.0); MEAN CORPUSCULAR HEMOGLOBIN 21.8 pg (27.0-31.0); MEAN CORPUSCULAR HGB CONC 29.5 g/dL (33.0-37.0); MEAN PLATELET VOLUME 9.4 fL (7.2-11.7); RED CELL DISTRIBUTION WIDTH 15.8 % (11.5-14.5); WHITE BLOOD COUNT 6.8 K/uL (4.8-10.8)
[2017-06-30] MEDS: (Novolog Mix 70/30) Insulin Aspart/Insulin Aspar 100 units/ml SC SCH ×2 (09:11→19:02)
[2017-06-30] MEDS: Enoxaparin 40 mg Syringe SC SCH (09:11)
[2017-06-30 09:23] LABS: POTASSIUM 4.4 mmol/L (3.6-5.2)
[2017-06-30 09:27] LABS: CALCIUM 8.9 mg/dl (8.6-10.4)
--- NOTE | 2017-06-30 21:58 | CP.PCM.PN ---
Subjective - Date & Time of Evaluation Date of Evaluation: 06/29/17 - Subjective Subjective: PAIN IN L LEG, S/P GRAFT, NO FEVER, NO SOB Objective - Vital Signs/Intake and Output Vital Signs (last 24 hours): Temp Pulse Resp BP Pulse Ox 97.8 F 75 20 122/79 96 06/30/17 15:20 06/30/17 15:20 06/30/17 15:20 06/30/17 15:20 06/30/17 15:20 - Medications Medications: Current Medications Acetaminophen (Tylenol 325mg Tab) 650 mg PO Q6 PRN PRN Reason: Pain, Mild (1-3) Albuterol/Ipratropium (Duoneb 3 Mg/0.5 Mg (3 Ml) Ud) 3 ml INH RQ6 [facility] Last Admin: 06/30/17 19:15 Dose: 3 ml Carvedilol (Coreg) 3.125 mg PO BID [facility] Last Admin: 06/30/17 19:01 Dose: 3.125 mg Enoxaparin Sodium (Lovenox) 40 mg SC DAILY [facility] Last Admin: 06/30/17 09:11 Dose: 40 mg Colistimethate Sodium 150 mg/ (Sodium Chloride) 100 mls @ 200 mls/hr IV Q12H [facility] Last Admin: 06/30/17 14:25 Dose: 200 mls/hr Insulin Aspart (Novolog) 0 unit SC ACHS [facility] PRN Reason: Protocol Last Admin: 06/30/17 21:14 Dose: Not Given Insulin Aspart (Novolog Mix 70/30 (70/30 Units/Ml)) 20 units SC ACBD [facility] Last Admin: 06/30/17 19:02 Dose: 20 units Losartan Potassium (Cozaar) 50 mg PO DAILY [facility] Last Admin: 06/30/17 09:11 Dose: 50 mg Methadone HCl (Methadone) 150 mg PO DAILY [facility] Last Admin: 06/30/17 11:32 Dose: 150 mg Rosuvastatin Calcium (Crestor) 10 mg PO HS [facility] Last Admin: 06/30/17 21:14 Dose: 10 mg - Labs Labs: 06/30/17 08:32 06/30/17 08:32 PT 10.5 SECONDS (9.7-12.2) 06/23/17 23:34 INR 0.9 06/23/17 23:34 APTT 31 SECONDS (21-34) 06/23/17 23:34 - Constitutional Appears: Non-toxic, No Acute Distress - Head Exam Head Exam: ATRAUMATIC, NORMAL INSPECTION, NORMOCEPHALIC - Eye Exam Eye Exam: EOMI, Normal appearance, PERRL - ENT Exam ENT Exam: Mucous Membranes Moist, Normal Exam - Respiratory Exam Respiratory Exam: Rhonchi, NORMAL BREATHING PATTERN - Cardiovascular Exam Cardiovascular Exam: REGULAR RHYTHM, +S1, +S2 - GI/Abdominal Exam GI & Abdominal Exam: Normal Bowel Sounds - Neurological Exam Neurological Exam: Alert, Awake, CN II-XII Intact, Normal Gait, Oriented x3 Neuro motor strength exam: Left Upper Extremity: 5, Right Upper Extremity: 5, Left Lower Extremity: 5, Right Lower Extremity: 5 - Psychiatric Exam Psychiatric exam: Anxious, Normal Mood Assessment and Plan (1) COPD (chronic obstructive pulmonary disease) Status: Chronic (2) Diabetic leg ulcer Status: Acute (3) HTN (hypertension) Status: Chronic (4) Uncontrolled diabetes mellitus Status: Chronic (5) UTI (urinary tract infection) due to Enterococcus Status: Acute
--- NOTE | 2017-06-30 21:59 | CP.PCM.PN ---
Subjective - Date & Time of Evaluation Date of Evaluation: 06/30/17 - Subjective Subjective: NO COUGH , ON METHADONE Objective - Vital Signs/Intake and Output Vital Signs (last 24 hours): Temp Pulse Resp BP Pulse Ox 97.8 F 75 20 122/79 96 06/30/17 15:20 06/30/17 15:20 06/30/17 15:20 06/30/17 15:20 06/30/17 15:20 - Medications Medications: Current Medications Acetaminophen (Tylenol 325mg Tab) 650 mg PO Q6 PRN PRN Reason: Pain, Mild (1-3) Albuterol/Ipratropium (Duoneb 3 Mg/0.5 Mg (3 Ml) Ud) 3 ml INH RQ6 [facility] Last Admin: 06/30/17 19:15 Dose: 3 ml Carvedilol (Coreg) 3.125 mg PO BID [facility] Last Admin: 06/30/17 19:01 Dose: 3.125 mg Enoxaparin Sodium (Lovenox) 40 mg SC DAILY [facility] Last Admin: 06/30/17 09:11 Dose: 40 mg Colistimethate Sodium 150 mg/ (Sodium Chloride) 100 mls @ 200 mls/hr IV Q12H [facility] Last Admin: 06/30/17 14:25 Dose: 200 mls/hr Insulin Aspart (Novolog) 0 unit SC ACHS [facility] PRN Reason: Protocol Last Admin: 06/30/17 21:14 Dose: Not Given Insulin Aspart (Novolog Mix 70/30 (70/30 Units/Ml)) 20 units SC ACBD [facility] Last Admin: 06/30/17 19:02 Dose: 20 units Losartan Potassium (Cozaar) 50 mg PO DAILY [facility] Last Admin: 06/30/17 09:11 Dose: 50 mg Methadone HCl (Methadone) 150 mg PO DAILY [facility] Last Admin: 06/30/17 11:32 Dose: 150 mg Rosuvastatin Calcium (Crestor) 10 mg PO HS [facility] Last Admin: 06/30/17 21:14 Dose: 10 mg - Labs Labs: 06/30/17 08:32 06/30/17 08:32 PT 10.5 SECONDS (9.7-12.2) 06/23/17 23:34 INR 0.9 06/23/17 23:34 APTT 31 SECONDS (21-34) 06/23/17 23:34 - Constitutional Appears: Non-toxic, No Acute Distress - Head Exam Head Exam: NORMAL INSPECTION, NORMOCEPHALIC - ENT Exam ENT Exam: Mucous Membranes Moist - Neck Exam Neck Exam: Normal Inspection - Respiratory Exam Respiratory Exam: Rhonchi, NORMAL BREATHING PATTERN - GI/Abdominal Exam GI & Abdominal Exam: Soft, Normal Bowel Sounds - Extremities Exam Extremities Exam: Full ROM, Normal Capillary Refill, Normal Inspection - Neurological Exam Neurological Exam: Alert, Awake, CN II-XII Intact, Normal Gait, Oriented x3 Neuro motor strength exam: Left Upper Extremity: 5, Right Upper Extremity: 5, Left Lower Extremity: 5, Right Lower Extremity: 5 Assessment and Plan (1) COPD (chronic obstructive pulmonary disease) Status: Chronic (2) Diabetic leg ulcer Status: Acute (3) HTN (hypertension) Status: Chronic (4) Uncontrolled diabetes mellitus Status: Chronic (5) UTI (urinary tract infection) due to Enterococcus Status: Acute
[2017-07-01] MEDS: Albuterol-Ipratrop 3 mg / 0.5 (3 ml) UD INH SCH ×4 (01:31→19:43)
[2017-07-01] MEDS: (Novolog) Insulin Aspart, Recombinant 100 u/ml 10 ml vial SC SCH ×4 (07:30→21:38)
--- NOTE | 2017-07-01 08:26 | CP.PCM.PN ---
Subjective - Date & Time of Evaluation Date of Evaluation: 07/01/17 Time of Evaluation: 08:25 - Subjective Subjective: 57 year old female was seen resting comfortably at bedside 7 day s/p left leg wound graft application. She denies any n/v/f/c/sob/cp. Objective - Vital Signs/Intake and Output Vital Signs (last 24 hours): Temp Pulse Resp BP Pulse Ox 98.2 F 80 20 145/87 91 L 07/01/17 04:23 07/01/17 04:23 07/01/17 04:23 07/01/17 04:23 07/01/17 04:23 Intake and Output: 07/01/17 07/01/17 06:59 18:59 Intake Total 450 Balance 450 - Medications Medications: Current Medications Acetaminophen (Tylenol 325mg Tab) 650 mg PO Q6 PRN PRN Reason: Pain, Mild (1-3) Albuterol/Ipratropium (Duoneb 3 Mg/0.5 Mg (3 Ml) Ud) 3 ml INH RQ6 [facility] Last Admin: 07/01/17 07:29 Dose: 3 ml Carvedilol (Coreg) 3.125 mg PO BID [facility] Last Admin: 06/30/17 19:01 Dose: 3.125 mg Enoxaparin Sodium (Lovenox) 40 mg SC DAILY [facility] Last Admin: 06/30/17 09:11 Dose: 40 mg Colistimethate Sodium 150 mg/ (Sodium Chloride) 100 mls @ 200 mls/hr IV Q12H [facility] Last Admin: 06/30/17 23:43 Dose: 200 mls/hr Insulin Aspart (Novolog) 0 unit SC ACHS [facility] PRN Reason: Protocol Last Admin: 06/30/17 21:14 Dose: Not Given Insulin Aspart (Novolog Mix 70/30 (70/30 Units/Ml)) 20 units SC ACBD [facility] Last Admin: 06/30/17 19:02 Dose: 20 units Losartan Potassium (Cozaar) 50 mg PO DAILY [facility] Last Admin: 06/30/17 09:11 Dose: 50 mg Methadone HCl (Methadone) 150 mg PO DAILY [facility] Last Admin: 06/30/17 11:32 Dose: 150 mg Rosuvastatin Calcium (Crestor) 10 mg PO HS [facility] Last Admin: 06/30/17 21:14 Dose: 10 mg - Labs Labs: 06/30/17 08:32 06/30/17 08:32 PT 10.5 SECONDS (9.7-12.2) 06/23/17 23:34 INR 0.9 06/23/17 23:34 APTT 31 SECONDS (21-34) 06/23/17 23:34 - Constitutional Appears: Well, Non-toxic, No Acute Distress - Extremities Exam Additional comments: dressing c/d/i to LLE - Neurological Exam Neurological Exam: Alert, Awake, Oriented x3 - Psychiatric Exam Psychiatric exam: Normal Affect, Normal Mood Assessment and Plan - Assessment and Plan (Free Text) Assessment: 57 year old female 7 day s/p left leg wound graft application Plan: patient examined and evaluated discussed with attending, Dr. Huynh labs, chart, vitals reviewed;afebrile patient instructed to keep dressing c/d/i patient to keep leg elevated while in bed patient stable for d/c per podiatry and will follow up with Dr. Huynh upon d/c podiatry will continue to follow patient while in house
[2017-07-01] MEDS: (Novolog Mix 70/30) Insulin Aspart/Insulin Aspar 100 units/ml SC SCH ×2 (09:18→17:39)
[2017-07-01] MEDS: Enoxaparin 40 mg Syringe SC SCH (09:18)
[2017-07-01] MEDS: Methadone 40 mg Tab PO SCH (09:57)
--- NOTE | 2017-07-01 14:02 | CP.PCM.PN ---
Subjective - Date & Time of Evaluation Date of Evaluation: 07/01/17 Time of Evaluation: 14:02 - Subjective Subjective: AFEBRILE, POSTOPERATIVE LEFT LEG IN DRESSING AND HARJINDER BANDAGE. NO NEW COMPLAINTS. SEEN BY PODIATRY. RENAL FUNCTIONS AGAIN GOING DOWN. dISCUSSED WITH PHARMACY. DECREASE iv COLISTIN 150 MG EVERY 36 HOURLY SUGGESTED AND DISCUSSED WITH PHARMACY X 3 DAYS MORE TILL 07/04/17 Objective - Vital Signs/Intake and Output Vital Signs (last 24 hours): Temp Pulse Resp BP Pulse Ox 97.9 F 80 20 148/96 H 90 L 07/01/17 08:00 07/01/17 12:11 07/01/17 08:00 07/01/17 08:00 07/01/17 12:11 Intake and Output: 07/01/17 07/01/17 06:59 18:59 Intake Total 450 Balance 450 - Medications Medications: Current Medications Acetaminophen (Tylenol 325mg Tab) 650 mg PO Q6 PRN PRN Reason: Pain, Mild (1-3) Albuterol/Ipratropium (Duoneb 3 Mg/0.5 Mg (3 Ml) Ud) 3 ml INH RQ6 [facility] Last Admin: 07/01/17 13:11 Dose: 3 ml Carvedilol (Coreg) 3.125 mg PO BID [facility] Last Admin: 07/01/17 09:18 Dose: 3.125 mg Enoxaparin Sodium (Lovenox) 30 mg SC DAILY [facility] Colistimethate Sodium 150 mg/ (Sodium Chloride) 100 mls @ 200 mls/hr IV Q36H [facility] Insulin Aspart (Novolog) 0 unit SC ACHS [facility] PRN Reason: Protocol Last Admin: 07/01/17 12:34 Dose: 2 unit Insulin Aspart (Novolog Mix 70/30 (70/30 Units/Ml)) 20 units SC ACBD [facility] Last Admin: 07/01/17 09:18 Dose: 20 units Losartan Potassium (Cozaar) 50 mg PO DAILY [facility] Last Admin: 07/01/17 09:18 Dose: 50 mg Methadone HCl (Methadose) 120 mg PO DAILY [facility] Last Admin: 07/01/17 09:57 Dose: 120 mg Methadone HCl (Methadone) 30 mg PO DAILY [facility] Last Admin: 07/01/17 09:57 Dose: 30 mg Rosuvastatin Calcium (Crestor) 10 mg PO HS [facility] Last Admin: 06/30/17 21:14 Dose: 10 mg - Labs Labs: 06/30/17 08:32 06/30/17 08:32 PT 10.5 SECONDS (9.7-12.2) 06/23/17 23:34 INR 0.9 06/23/17 23:34 APTT 31 SECONDS (21-34) 06/23/17 23:34 - Constitutional Appears: No Acute Distress - Head Exam Head Exam: NORMAL INSPECTION - Eye Exam Eye Exam: PERRL - ENT Exam ENT Exam: Normal Oropharynx - Neck Exam Neck Exam: Normal Inspection - Respiratory Exam Respiratory Exam: Clear to Ausculation Bilateral - Cardiovascular Exam Cardiovascular Exam: REGULAR RHYTHM, +S1, +S2 - GI/Abdominal Exam GI & Abdominal Exam: Soft, Normal Bowel Sounds - Extremities Exam Extremities Exam: Pedal Edema (LEFT LEG IN DRESSING AND Harjinder BANDAGE.). absent: Calf Tenderness - Neurological Exam Neurological Exam: Awake, CN II-XII Intact, Normal Gait, Oriented x3 - Psychiatric Exam Psychiatric exam: Normal Mood - Skin Skin Exam: Normal Color, Warm Assessment and Plan (1) Diabetic ulcer of lower extremity Status: Acute (2) Cellulitis Status: Acute (3) COPD (chronic obstructive pulmonary disease) Status: Chronic (4) HTN (hypertension) Status: Chronic (5) Acute prerenal azotemia Status: Acute (6) Uncontrolled diabetes mellitus Status: Chronic (7) UTI (urinary tract infection) due to Enterococcus Status: Acute
--- NOTE | 2017-07-01 23:21 | CP.PCM.PN ---
Subjective - Date & Time of Evaluation Date of Evaluation: 07/01/17 - Subjective Subjective: FEELS DIFFICULTY WALKING, NO SOB, ON BIPEP Objective - Vital Signs/Intake and Output Vital Signs (last 24 hours): Temp Pulse Resp BP Pulse Ox 98 F 73 20 128/81 95 07/01/17 15:12 07/01/17 15:12 07/01/17 15:12 07/01/17 15:12 07/01/17 15:12 Intake and Output: 07/01/17 07/02/17 18:59 06:59 Intake Total 480 Balance 480 - Medications Medications: Current Medications Acetaminophen (Tylenol 325mg Tab) 650 mg PO Q6 PRN PRN Reason: Pain, Mild (1-3) Albuterol/Ipratropium (Duoneb 3 Mg/0.5 Mg (3 Ml) Ud) 3 ml INH RQ6 [facility] Last Admin: 07/01/17 19:43 Dose: 3 ml Carvedilol (Coreg) 3.125 mg PO BID [facility] Last Admin: 07/01/17 17:39 Dose: 3.125 mg Enoxaparin Sodium (Lovenox) 30 mg SC DAILY [facility] Colistimethate Sodium 150 mg/ (Sodium Chloride) 100 mls @ 200 mls/hr IV Q36H [facility] Insulin Aspart (Novolog) 0 unit SC ACHS [facility] PRN Reason: Protocol Last Admin: 07/01/17 21:38 Dose: Not Given Insulin Aspart (Novolog Mix 70/30 (70/30 Units/Ml)) 20 units SC ACBD [facility] Last Admin: 07/01/17 17:39 Dose: 20 units Losartan Potassium (Cozaar) 50 mg PO DAILY [facility] Last Admin: 07/01/17 09:18 Dose: 50 mg Methadone HCl (Methadose) 120 mg PO DAILY [facility] Last Admin: 07/01/17 09:57 Dose: 120 mg Methadone HCl (Methadone) 30 mg PO DAILY [facility] Last Admin: 07/01/17 09:57 Dose: 30 mg Rosuvastatin Calcium (Crestor) 10 mg PO HS [facility] Last Admin: 07/01/17 22:16 Dose: 10 mg - Labs Labs: 06/30/17 08:32 06/30/17 08:32 PT 10.5 SECONDS (9.7-12.2) 06/23/17 23:34 INR 0.9 06/23/17 23:34 APTT 31 SECONDS (21-34) 06/23/17 23:34 - Constitutional Appears: Non-toxic, No Acute Distress - Head Exam Head Exam: ATRAUMATIC, NORMAL INSPECTION, NORMOCEPHALIC - Eye Exam Eye Exam: EOMI, Normal appearance, PERRL Pupil Exam: NORMAL ACCOMODATION - ENT Exam ENT Exam: Mucous Membranes Moist, Normal Exam, Normal Oropharynx - Neck Exam Neck Exam: Normal Inspection - Respiratory Exam Respiratory Exam: Decreased Breath Sounds, NORMAL BREATHING PATTERN - Cardiovascular Exam Cardiovascular Exam: REGULAR RHYTHM, +S1, +S2 - GI/Abdominal Exam GI & Abdominal Exam: Soft, Normal Bowel Sounds - Rectal Exam Rectal Exam: NORMAL INSPECTION - Extremities Exam Extremities Exam: Normal Capillary Refill, Normal Inspection, Pedal Edema - Back Exam Back Exam: NORMAL INSPECTION - Neurological Exam Neurological Exam: Abnormal Gait, Alert, Awake, CN II-XII Intact, Oriented x3 Neuro motor strength exam: Left Upper Extremity: 5, Right Upper Extremity: 5, Left Lower Extremity: 5, Right Lower Extremity: 5 - Psychiatric Exam Psychiatric exam: Flat Affect - Skin Skin Exam: Intact Assessment and Plan (1) COPD (chronic obstructive pulmonary disease) Status: Chronic (2) Diabetic leg ulcer Assessment & Plan: ON ANTIBIOTICS Status: Acute (3) HTN (hypertension) Status: Chronic (4) Uncontrolled diabetes mellitus Status: Chronic (5) UTI (urinary tract infection) due to Enterococcus Status: Acute
[2017-07-02] MEDS: Albuterol-Ipratrop 3 mg / 0.5 (3 ml) UD INH SCH ×4 (01:24→19:40)
[2017-07-02 07:43] LABS: BASO # 0.1 K/uL (0.0-0.2); BASO % 0.7 % (0.0-2.0); EOS # 0.4 K/uL (0.0-0.7); EOS % 5.1 % (0.0-4.0); HEMATOCRIT 37.2 % (34.0-47.0); LYMPH # 2.6 K/uL (1.0-4.3); LYMPH % 36.1 % (20.0-40.0); MEAN CORPUSCULAR HEMOGLOBIN 21.7 pg (27.0-31.0); MEAN CORPUSCULAR HGB CONC 29.7 g/dL (33.0-37.0); MEAN PLATELET VOLUME 9.3 fL (7.2-11.7); MONO # 0.7 K/uL (0.0-0.8); MONO % 10.5 % (0.0-10.0); RED CELL DISTRIBUTION WIDTH 15.4 % (11.5-14.5); WHITE BLOOD COUNT 7.2 K/uL (4.8-10.8)
[2017-07-02 07:50] LABS: POTASSIUM 4.5 mmol/L (3.6-5.2)
[2017-07-02] MEDS: Enoxaparin 30 mg Syringe SC SCH (09:20)
[2017-07-02] MEDS: (Novolog Mix 70/30) Insulin Aspart/Insulin Aspar 100 units/ml SC SCH ×2 (09:20→16:58)
[2017-07-02] MEDS: (Novolog) Insulin Aspart, Recombinant 100 u/ml 10 ml vial SC SCH ×4 (09:21→21:42)
[2017-07-02] MEDS: Methadone 40 mg Tab PO SCH (09:25)
--- NOTE | 2017-07-02 09:42 | CP.PCM.PN ---
<Fish Huynh - Last Filed: 07/02/17 09:40> Subjective - Date & Time of Evaluation Date of Evaluation: 07/02/17 Time of Evaluation: 09:20 - Subjective Subjective: pt seen s/p graft left lower leg ulcers . No complaints. Objective - Vital Signs/Intake and Output Vital Signs (last 24 hours): Temp Pulse Resp BP Pulse Ox 98.1 F 87 20 173/98 H 97 07/02/17 08:00 07/02/17 08:00 07/02/17 08:00 07/02/17 08:00 07/02/17 08:00 - Medications Medications: Current Medications Acetaminophen (Tylenol 325mg Tab) 650 mg PO Q6 PRN PRN Reason: Pain, Mild (1-3) Albuterol/Ipratropium (Duoneb 3 Mg/0.5 Mg (3 Ml) Ud) 3 ml INH RQ6 [facility] Last Admin: 07/02/17 07:28 Dose: 3 ml Carvedilol (Coreg) 3.125 mg PO BID [facility] Last Admin: 07/02/17 09:20 Dose: 3.125 mg Enoxaparin Sodium (Lovenox) 30 mg SC DAILY [facility] Last Admin: 07/02/17 09:20 Dose: 30 mg Colistimethate Sodium 150 mg/ (Sodium Chloride) 100 mls @ 200 mls/hr IV Q36H [facility] Insulin Aspart (Novolog) 0 unit SC ACHS [facility] PRN Reason: Protocol Last Admin: 07/02/17 09:21 Dose: Not Given Insulin Aspart (Novolog Mix 70/30 (70/30 Units/Ml)) 20 units SC ACBD [facility] Last Admin: 07/02/17 09:20 Dose: 20 units Losartan Potassium (Cozaar) 50 mg PO DAILY [facility] Last Admin: 07/02/17 09:20 Dose: 50 mg Methadone HCl (Methadose) 120 mg PO DAILY [facility] Last Admin: 07/02/17 09:25 Dose: 120 mg Methadone HCl (Methadone) 30 mg PO DAILY [facility] Last Admin: 07/02/17 09:24 Dose: 30 mg Rosuvastatin Calcium (Crestor) 10 mg PO HS [facility] Last Admin: 07/01/17 22:16 Dose: 10 mg - Labs Labs: 07/02/17 07:20 07/02/17 07:20 PT 10.5 SECONDS (9.7-12.2) 06/23/17 23:34 INR 0.9 06/23/17 23:34 APTT 31 SECONDS (21-34) 06/23/17 23:34 <Linsey Sanches - Last Filed: 07/02/17 14:23> Subjective - Subjective Subjective: 57 year old female was seen resting comfortably at bedside 8 day s/p left leg wound graft application. She denies any n/v/f/c/sob/cp. Objective - Vital Signs/Intake and Output Vital Signs (last 24 hours): Temp Pulse Resp BP Pulse Ox 98.1 F 87 20 173/98 H 97 07/02/17 08:00 07/02/17 08:00 07/02/17 08:00 07/02/17 08:00 07/02/17 08:00 - Medications Medications: Current Medications Acetaminophen (Tylenol 325mg Tab) 650 mg PO Q6 PRN PRN Reason: Pain, Mild (1-3) Albuterol/Ipratropium (Duoneb 3 Mg/0.5 Mg (3 Ml) Ud) 3 ml INH RQ6 [facility] Last Admin: 07/02/17 13:44 Dose: 3 ml Carvedilol (Coreg) 3.125 mg PO BID [facility] Last Admin: 07/02/17 09:20 Dose: 3.125 mg Enoxaparin Sodium (Lovenox) 30 mg SC DAILY [facility] Last Admin: 07/02/17 09:20 Dose: 30 mg Colistimethate Sodium 150 mg/ (Sodium Chloride) 100 mls @ 200 mls/hr IV Q36H [facility] Last Admin: 07/02/17 13:33 Dose: 200 mls/hr Insulin Aspart (Novolog) 0 unit SC ACHS [facility] PRN Reason: Protocol Last Admin: 07/02/17 12:49 Dose: 1 unit Insulin Aspart (Novolog Mix 70/30 (70/30 Units/Ml)) 20 units SC ACBD [facility] Last Admin: 07/02/17 09:20 Dose: 20 units Losartan Potassium (Cozaar) 50 mg PO DAILY [facility] Last Admin: 07/02/17 09:20 Dose: 50 mg Methadone HCl (Methadose) 120 mg PO DAILY [facility] Last Admin: 07/02/17 09:25 Dose: 120 mg Methadone HCl (Methadone) 30 mg PO DAILY [facility] Last Admin: 07/02/17 09:24 Dose: 30 mg Rosuvastatin Calcium (Crestor) 10 mg PO HS [facility] Last Admin: 07/01/17 22:16 Dose: 10 mg - Labs Labs: 07/02/17 07:20 07/02/17 07:20 PT 10.5 SECONDS (9.7-12.2) 06/23/17 23:34 INR 0.9 06/23/17 23:34 APTT 31 SECONDS (21-34) 06/23/17 23:34 - Constitutional Appears: Non-toxic, No Acute Distress - Extremities Exam Additional comments: dressing c/d/i to LLE - Neurological Exam Neurological Exam: Alert, Awake, Oriented x3 - Psychiatric Exam Psychiatric exam: Normal Affect, Normal Mood Assessment and Plan - Assessment and Plan (Free Text) Assessment: 57 year old female 8 day s/p left leg wound graft application Plan: patient examined and evaluated with attending, Dr. Huynh labs, chart, vitals reviewed;afebrile patient instructed to keep dressing c/d/i patient to keep leg elevated while in bed patient stable for d/c per podiatry and will follow up with Dr. Huynh upon d/c podiatry will continue to follow patient while in house
--- NOTE | 2017-07-02 20:22 | CP.PCM.PN ---
Subjective - Date & Time of Evaluation Date of Evaluation: 07/02/17 Time of Evaluation: 20:22 - Subjective Subjective: AFEBRILE, POSTOPERATIVE LEFT LEG IN DRESSING AND HARJINDER BANDAGE. NO NEW COMPLAINTS. SEEN BY PODIATRY/ and cleared for discharge. CONTINUE IV COLISTIN LAST DOSE ON 07/03 AT MIDNIGHT. PT FOR DC PER MEDICAL TEAM ON 07/04/18 WOUND CARE PER PODIATRY. Objective - Vital Signs/Intake and Output Vital Signs (last 24 hours): Temp Pulse Resp BP Pulse Ox 97.6 F 76 22 155/98 H 99 07/02/17 16:00 07/02/17 16:00 07/02/17 16:00 07/02/17 16:00 07/02/17 16:00 Intake and Output: 07/02/17 07/03/17 18:59 06:59 Intake Total 580 Balance 580 - Medications Medications: Current Medications Acetaminophen (Tylenol 325mg Tab) 650 mg PO Q6 PRN PRN Reason: Pain, Mild (1-3) Albuterol/Ipratropium (Duoneb 3 Mg/0.5 Mg (3 Ml) Ud) 3 ml INH RQ6 [facility] Last Admin: 07/02/17 19:40 Dose: 3 ml Carvedilol (Coreg) 3.125 mg PO BID [facility] Last Admin: 07/02/17 09:20 Dose: 3.125 mg Enoxaparin Sodium (Lovenox) 30 mg SC DAILY [facility] Last Admin: 07/02/17 09:20 Dose: 30 mg Colistimethate Sodium 150 mg/ (Sodium Chloride) 100 mls @ 200 mls/hr IV Q36H [facility] Last Admin: 07/02/17 13:33 Dose: 200 mls/hr Insulin Aspart (Novolog) 0 unit SC ACHS [facility] PRN Reason: Protocol Last Admin: 07/02/17 16:59 Dose: 1 unit Insulin Aspart (Novolog Mix 70/30 (70/30 Units/Ml)) 20 units SC ACBD [facility] [place] Last Admin: 07/02/17 16:58 Dose: 20 units Losartan Potassium (Cozaar) 50 mg PO DAILY [facility] [place] Last Admin: 07/02/17 09:20 Dose: 50 mg Methadone HCl (Methadose) 120 mg PO DAILY [facility] Last Admin: 07/02/17 09:25 Dose: 120 mg Methadone HCl (Methadone) 30 mg PO DAILY [facility] Last Admin: 07/02/17 09:24 Dose: 30 mg Rosuvastatin Calcium (Crestor) 10 mg PO [facility] Last Admin: 07/01/17 22:16 Dose: 10 mg - Labs Labs: 07/02/17 07:20 07/02/17 07:20 PT 10.5 SECONDS (9.7-12.2) 06/23/17 23:34 INR 0.9 06/23/17 23:34 APTT 31 SECONDS (21-34) 06/23/17 23:34 - Constitutional Appears: No Acute Distress - Head Exam Head Exam: NORMAL INSPECTION - Eye Exam Eye Exam: EOMI, PERRL - ENT Exam ENT Exam: Normal Oropharynx - Neck Exam Neck Exam: Normal Inspection - Respiratory Exam Respiratory Exam: Clear to Ausculation Bilateral - Cardiovascular Exam Cardiovascular Exam: REGULAR RHYTHM, +S1, +S2 - GI/Abdominal Exam GI & Abdominal Exam: Soft, Normal Bowel Sounds - Extremities Exam Extremities Exam: Normal Capillary Refill (b/l lower extremities in HARJINDER BANDAGE. ). absent: Calf Tenderness, Tenderness Assessment and Plan (1) Diabetic ulcer of lower extremity Status: Acute (2) Cellulitis Status: Acute (3) COPD (chronic obstructive pulmonary disease) Status: Chronic (4) HTN (hypertension) Status: Chronic (5) Acute prerenal azotemia Status: Acute (6) Uncontrolled diabetes mellitus Status: Chronic (7) UTI (urinary tract infection) due to Enterococcus Status: Acute
[2017-07-03] MEDS: Albuterol-Ipratrop 3 mg / 0.5 (3 ml) UD INH SCH ×4 (01:09→19:09)
--- NOTE | 2017-07-03 08:16 | CP.PCM.PN ---
Subjective - Date & Time of Evaluation Date of Evaluation: 07/03/17 Time of Evaluation: 08:16 - Subjective Subjective: 57 year old female was seen resting comfortably at bedside 8 day s/p left leg wound graft application. Denies any pain to the LLE. She denies any n/v/f/c/sob /cp. Objective - Vital Signs/Intake and Output Vital Signs (last 24 hours): Temp Pulse Resp BP Pulse Ox 98.1 F 93 H 21 161/98 H 95 07/03/17 07:52 07/03/17 07:52 07/03/17 07:52 07/03/17 07:52 07/03/17 07:52 - Medications Medications: Current Medications Acetaminophen (Tylenol 325mg Tab) 650 mg PO Q6 PRN PRN Reason: Pain, Mild (1-3) Albuterol/Ipratropium (Duoneb 3 Mg/0.5 Mg (3 Ml) Ud) 3 ml INH RQ6 [facility] Last Admin: 07/03/17 07:32 Dose: 3 ml Carvedilol (Coreg) 3.125 mg PO BID [facility] Last Admin: 07/02/17 17:00 Dose: 3.125 mg Enoxaparin Sodium (Lovenox) 30 mg SC DAILY [facility] Last Admin: 07/02/17 09:20 Dose: 30 mg Colistimethate Sodium 150 mg/ (Sodium Chloride) 100 mls @ 200 mls/hr IV Q36H [facility] Last Admin: 07/02/17 13:33 Dose: 200 mls/hr Insulin Aspart (Novolog) 0 unit SC ACHS [facility] PRN Reason: Protocol Last Admin: 07/02/17 21:42 Dose: Not Given Insulin Aspart (Novolog Mix 70/30 (70/30 Units/Ml)) 20 units SC ACBD [facility] Last Admin: 07/02/17 16:58 Dose: 20 units Losartan Potassium (Cozaar) 50 mg PO DAILY [facility] Last Admin: 07/02/17 09:20 Dose: 50 mg Methadone HCl (Methadose) 120 mg PO DAILY [facility] Last Admin: 07/02/17 09:25 Dose: 120 mg Methadone HCl (Methadone) 30 mg PO DAILY [facility] Last Admin: 07/02/17 09:24 Dose: 30 mg Rosuvastatin Calcium (Crestor) 10 mg PO HS [facility] Last Admin: 07/02/17 21:47 Dose: 10 mg - Labs Labs: 07/02/17 07:20 07/02/17 07:20 PT 10.5 SECONDS (9.7-12.2) 06/23/17 23:34 INR 0.9 06/23/17 23:34 APTT 31 SECONDS (21-34) 06/23/17 23:34 - Extremities Exam Additional comments: Left lower extremity focused. VASC: DP and PT pulses are palpable, Temperature gradient WNL, [employer] <3 seconds to all digits, no edema noted DERM: Full thickness ulceration is noted to distal aspect of leg measures approximately 4.7 x 5.2 x 0.2 cm with mixed fibro-granular base and wound graft fully incorporated into wound base. All sutures remain intact. No malodor, no surrounding erythema, no ascending cellulitis, no purulence, slight serous drainage is noted, no fluctuance, no undermining, no probe to bone noted. NEURO: gross sensation diminished bilaterally ORTHO: tenderness with palpation of skin surrounding ulceration. Assessment and Plan - Assessment and Plan (Free Text) Assessment: 57 year old female 9 day s/p left leg wound graft application Plan: Patient examined and evaluated Discussed with attending, Dr. Huynh. labs, chart, vitals reviewed;afebrile Wound dressed with aquacell Ag, DSD, and Coban throughout lower extremity for leg compression cont abx per ID wound culture- pseudomonas patient stable for d/c per podiatry and will follow up with Dr. Huynh upon d/c podiatry will continue to follow patient while in house
[2017-07-03] MEDS: Methadone 40 mg Tab PO SCH (10:08)
[2017-07-03] MEDS: (Novolog Mix 70/30) Insulin Aspart/Insulin Aspar 100 units/ml SC SCH ×2 (10:08→18:09)
[2017-07-03] MEDS: Enoxaparin 30 mg Syringe SC SCH (10:08)
[2017-07-03] MEDS: (Novolog) Insulin Aspart, Recombinant 100 u/ml 10 ml vial SC SCH ×4 (10:09→21:54)
[2017-07-03] MEDS ORDERED: Sod Polystyrene Sulf 15 gm/60 ml Oral Susp PO ONE (18:58)
--- NOTE | 2017-07-03 22:55 | CP.PCM.PN ---
Subjective - Date & Time of Evaluation Date of Evaluation: 07/02/17 - Subjective Subjective: FEELS BETTER, ON ANTIBIOTICS, NO CHEST PAIN, ON BIPEP Objective - Vital Signs/Intake and Output Vital Signs (last 24 hours): Temp Pulse Resp BP Pulse Ox 97.9 F 76 20 153/91 H 97 07/03/17 15:40 07/03/17 15:40 07/03/17 15:40 07/03/17 15:40 07/03/17 15:40 Intake and Output: 07/03/17 07/04/17 18:59 06:59 Intake Total 480 Balance 480 - Medications Medications: Current Medications Acetaminophen (Tylenol 325mg Tab) 650 mg PO Q6 PRN PRN Reason: Pain, Mild (1-3) Albuterol/Ipratropium (Duoneb 3 Mg/0.5 Mg (3 Ml) Ud) 3 ml INH RQ6 [facility] Last Admin: 07/03/17 19:09 Dose: 3 ml Carvedilol (Coreg) 3.125 mg PO BID [facility] Last Admin: 07/03/17 18:10 Dose: 3.125 mg Enoxaparin Sodium (Lovenox) 30 mg SC DAILY [facility] Last Admin: 07/03/17 10:08 Dose: 30 mg Colistimethate Sodium 150 mg/ (Sodium Chloride) 100 mls @ 200 mls/hr IV Q36H [facility] Last Admin: 07/02/17 13:33 Dose: 200 mls/hr Insulin Aspart (Novolog) 0 unit SC ACHS [facility] PRN Reason: Protocol Last Admin: 07/03/17 21:54 Dose: Not Given Insulin Aspart (Novolog Mix 70/30 (70/30 Units/Ml)) 20 units SC ACBD [facility] Last Admin: 07/03/17 18:09 Dose: 20 units Losartan Potassium (Cozaar) 50 mg PO DAILY [facility] Last Admin: 07/03/17 10:11 Dose: 50 mg Methadone HCl (Methadose) 120 mg PO DAILY [facility] Last Admin: 07/03/17 10:08 Dose: 120 mg Methadone HCl (Methadone) 30 mg PO DAILY [facility] Last Admin: 07/03/17 10:08 Dose: 30 mg - Labs Labs: 07/02/17 07:20 07/02/17 07:20 PT 10.5 SECONDS (9.7-12.2) 06/23/17 23:34 INR 0.9 06/23/17 23:34 APTT 31 SECONDS (21-34) 06/23/17 23:34 - Constitutional Appears: Non-toxic, No Acute Distress, Chronically Ill - Head Exam Head Exam: ATRAUMATIC, NORMAL INSPECTION, NORMOCEPHALIC - Eye Exam Eye Exam: EOMI, Normal appearance, PERRL Pupil Exam: NORMAL ACCOMODATION - ENT Exam ENT Exam: Mucous Membranes Moist, Normal Exam, Normal Oropharynx - Neck Exam Neck Exam: Normal Inspection - Respiratory Exam Respiratory Exam: Rhonchi, NORMAL BREATHING PATTERN - Cardiovascular Exam Cardiovascular Exam: REGULAR RHYTHM, +S1, +S2 - GI/Abdominal Exam GI & Abdominal Exam: Soft, Normal Bowel Sounds - Rectal Exam Rectal Exam: NORMAL INSPECTION - Extremities Exam Extremities Exam: Normal Capillary Refill, Pedal Edema - Neurological Exam Neurological Exam: Alert, Awake, CN II-XII Intact, Normal Gait, Oriented x3 Neuro motor strength exam: Left Upper Extremity: 5, Right Upper Extremity: 5, Left Lower Extremity: 5, Right Lower Extremity: 5 - Psychiatric Exam Psychiatric exam: Anxious - Skin Skin Exam: Intact Assessment and Plan (1) COPD (chronic obstructive pulmonary disease) Status: Chronic (2) Diabetic leg ulcer Status: Acute (3) HTN (hypertension) Status: Chronic (4) Uncontrolled diabetes mellitus Status: Chronic (5) UTI (urinary tract infection) due to Enterococcus Status: Acute
--- NOTE | 2017-07-03 22:56 | CP.PCM.PN ---
Subjective - Date & Time of Evaluation Date of Evaluation: 07/03/17 - Subjective Subjective: ON ANTIBIOTICS, NO FEVER Objective - Vital Signs/Intake and Output Vital Signs (last 24 hours): Temp Pulse Resp BP Pulse Ox 97.9 F 76 20 153/91 H 97 07/03/17 15:40 07/03/17 15:40 07/03/17 15:40 07/03/17 15:40 07/03/17 15:40 Intake and Output: 07/03/17 07/04/17 18:59 06:59 Intake Total 480 Balance 480 - Medications Medications: Current Medications Acetaminophen (Tylenol 325mg Tab) 650 mg PO Q6 PRN PRN Reason: Pain, Mild (1-3) Albuterol/Ipratropium (Duoneb 3 Mg/0.5 Mg (3 Ml) Ud) 3 ml INH RQ6 [facility] Last Admin: 07/03/17 19:09 Dose: 3 ml Carvedilol (Coreg) 3.125 mg PO BID [facility] Last Admin: 07/03/17 18:10 Dose: 3.125 mg Enoxaparin Sodium (Lovenox) 30 mg SC DAILY [facility] Last Admin: 07/03/17 10:08 Dose: 30 mg Colistimethate Sodium 150 mg/ (Sodium Chloride) 100 mls @ 200 mls/hr IV Q36H [facility] Last Admin: 07/02/17 13:33 Dose: 200 mls/hr Insulin Aspart (Novolog) 0 unit SC ACHS [facility] PRN Reason: Protocol Last Admin: 07/03/17 21:54 Dose: Not Given Insulin Aspart (Novolog Mix 70/30 (70/30 Units/Ml)) 20 units SC ACBD [facility] Last Admin: 07/03/17 18:09 Dose: 20 units Losartan Potassium (Cozaar) 50 mg PO DAILY [facility] Last Admin: 07/03/17 10:11 Dose: 50 mg Methadone HCl (Methadose) 120 mg PO DAILY [facility] Last Admin: 07/03/17 10:08 Dose: 120 mg Methadone HCl (Methadone) 30 mg PO DAILY [facility] Last Admin: 07/03/17 10:08 Dose: 30 mg - Labs Labs: 07/02/17 07:20 07/02/17 07:20 PT 10.5 SECONDS (9.7-12.2) 06/23/17 23:34 INR 0.9 06/23/17 23:34 APTT 31 SECONDS (21-34) 06/23/17 23:34 - Constitutional Appears: Non-toxic, No Acute Distress, Chronically Ill - Head Exam Head Exam: ATRAUMATIC, NORMAL INSPECTION, NORMOCEPHALIC - Eye Exam Eye Exam: EOMI, Normal appearance, PERRL Pupil Exam: NORMAL ACCOMODATION - Neck Exam Neck Exam: Normal Inspection - Respiratory Exam Respiratory Exam: Rhonchi, NORMAL BREATHING PATTERN - Cardiovascular Exam Cardiovascular Exam: REGULAR RHYTHM, +S1, +S2 - GI/Abdominal Exam GI & Abdominal Exam: Soft, Normal Bowel Sounds - Rectal Exam Rectal Exam: NORMAL INSPECTION - Extremities Exam Extremities Exam: Normal Capillary Refill, Pedal Edema - Neurological Exam Neurological Exam: Alert, Awake, CN II-XII Intact, Normal Gait, Oriented x3 Assessment and Plan (1) COPD (chronic obstructive pulmonary disease) Status: Chronic (2) Diabetic leg ulcer Status: Acute (3) HTN (hypertension) Status: Chronic (4) Uncontrolled diabetes mellitus Status: Chronic (5) UTI (urinary tract infection) due to Enterococcus Status: Acute
--- NOTE | 2017-07-03 23:03 | CP.PCM.PN ---
Subjective - Date & Time of Evaluation Date of Evaluation: 07/03/17 Time of Evaluation: 23:03 - Subjective Subjective: AFEBRILE POD # 9 s/p left leg wound graft application 9TH DAY. REPEAT WOUND CULTURES +VE PSEUDOMONAS AERUGINOSA. 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 pATIENT HAS CHRONIC RENAL INSUFFICIENCY ALSO. Case discussed with RAIL BENDER Ms REECE. PATIENT WILL NEED TO CONTINUE iv COLISTIN 150 MG EVERY 36 HOURLY FOR 10 DAYS TILL 07/13/17. F/U RENAL FUNCTION CLOSELY. LWC PER PODIATRY. Objective - Vital Signs/Intake and Output Vital Signs (last 24 hours): Temp Pulse Resp BP Pulse Ox 97.9 F 76 20 153/91 H 97 07/03/17 15:40 07/03/17 15:40 07/03/17 15:40 07/03/17 15:40 07/03/17 15:40 Intake and Output: 07/03/17 07/04/17 18:59 06:59 Intake Total 480 Balance 480 - Medications Medications: Current Medications Acetaminophen (Tylenol 325mg Tab) 650 mg PO Q6 PRN PRN Reason: Pain, Mild (1-3) Albuterol/Ipratropium (Duoneb 3 Mg/0.5 Mg (3 Ml) Ud) 3 ml INH RQ6 [facility] Last Admin: 07/03/17 19:09 Dose: 3 ml Carvedilol (Coreg) 3.125 mg PO BID [facility] Last Admin: 07/03/17 18:10 Dose: 3.125 mg Enoxaparin Sodium (Lovenox) 30 mg SC DAILY [facility] Last Admin: 07/03/17 10:08 Dose: 30 mg Colistimethate Sodium 150 mg/ (Sodium Chloride) 100 mls @ 200 mls/hr IV Q36H [facility] Last Admin: 07/02/17 13:33 Dose: 200 mls/hr Insulin Aspart (Novolog) 0 unit SC ACHS [facility] PRN Reason: Protocol Last Admin: 07/03/17 21:54 Dose: Not Given Insulin Aspart (Novolog Mix 70/30 (70/30 Units/Ml)) 20 units SC ACBD [facility] Last Admin: 07/03/17 18:09 Dose: 20 units Losartan Potassium (Cozaar) 50 mg PO DAILY [facility] Last Admin: 07/03/17 10:11 Dose: 50 mg Methadone HCl (Methadose) 120 mg PO DAILY [facility] Last Admin: 07/03/17 10:08 Dose: 120 mg Methadone HCl (Methadone) 30 mg PO DAILY [facility] Last Admin: 07/03/17 10:08 Dose: 30 mg - Labs Labs: 07/02/17 07:20 07/02/17 07:20 PT 10.5 SECONDS (9.7-12.2) 06/23/17 23:34 INR 0.9 06/23/17 23:34 APTT 31 SECONDS (21-34) 06/23/17 23:34 - Constitutional Appears: No Acute Distress - Head Exam Head Exam: NORMAL INSPECTION - Eye Exam Eye Exam: EOMI, PERRL - ENT Exam ENT Exam: Normal Oropharynx - Neck Exam Neck Exam: Normal Inspection - Respiratory Exam Respiratory Exam: Clear to Ausculation Bilateral - GI/Abdominal Exam GI & Abdominal Exam: Soft, Normal Bowel Sounds - Extremities Exam Extremities Exam: Pedal Edema (LT.LEG IN DRESSING /). absent: Calf Tenderness - Neurological Exam Neurological Exam: Awake, Oriented x3 - Psychiatric Exam Psychiatric exam: Normal Mood - Skin Skin Exam: Warm Assessment and Plan (1) Diabetic ulcer of lower extremity Status: Acute (2) Cellulitis Status: Acute (3) COPD (chronic obstructive pulmonary disease) Status: Chronic (4) HTN (hypertension) Status: Chronic (5) Acute prerenal azotemia Status: Acute (6) Uncontrolled diabetes mellitus Status: Chronic (7) UTI (urinary tract infection) due to Enterococcus Status: Acute
[2017-07-04] MEDS: Albuterol-Ipratrop 3 mg / 0.5 (3 ml) UD INH SCH ×3 (01:16→19:20)
[2017-07-04] MEDS: (Novolog) Insulin Aspart, Recombinant 100 u/ml 10 ml vial SC SCH ×4 (07:30→21:43)
[2017-07-04] MEDS: (Novolog Mix 70/30) Insulin Aspart/Insulin Aspar 100 units/ml SC SCH ×2 (10:53→16:54)
[2017-07-04] MEDS: Methadone 40 mg Tab PO SCH (10:53)
[2017-07-04] MEDS: Enoxaparin 30 mg Syringe SC SCH (10:54)
--- NOTE | 2017-07-04 21:09 | CP.PCM.PN ---
Subjective - Date & Time of Evaluation Date of Evaluation: 07/04/17 - Subjective Subjective: NO CHEST PAIN, COUGH, FOR IV ANTIBIOTICS, NO DISTRESS Objective - Vital Signs/Intake and Output Vital Signs (last 24 hours): Temp Pulse Resp BP Pulse Ox 97.6 F 70 20 140/88 95 07/04/17 15:44 07/04/17 15:44 07/04/17 15:44 07/04/17 19:07 07/04/17 15:44 Intake and Output: 07/04/17 07/05/17 18:59 06:59 Intake Total 480 400 Balance 480 400 - Medications Medications: Current Medications Acetaminophen (Tylenol 325mg Tab) 650 mg PO Q6 PRN PRN Reason: Pain, Mild (1-3) Albuterol/Ipratropium (Duoneb 3 Mg/0.5 Mg (3 Ml) Ud) 3 ml INH RQ6 [facility] Last Admin: 07/04/17 19:20 Dose: 3 ml Docusate Sodium (Colace) 100 mg PO BID [facility] Enoxaparin Sodium (Lovenox) 30 mg SC DAILY [facility] Last Admin: 07/04/17 10:54 Dose: 30 mg Colistimethate Sodium 150 mg/ (Sodium Chloride) 100 mls @ 200 mls/hr IV Q36H [facility] Last Admin: 07/03/17 23:35 Dose: 200 mls/hr Insulin Aspart (Novolog) 0 unit SC ACHS [facility] PRN Reason: Protocol Last Admin: 07/04/17 16:53 Dose: 2 unit Insulin Aspart (Novolog Mix 70/30 (70/30 Units/Ml)) 20 units SC ACBD [facility] Last Admin: 07/04/17 16:54 Dose: 20 units Losartan Potassium (Cozaar) 50 mg PO DAILY [facility] Last Admin: 07/04/17 08:23 Dose: 50 mg Methadone HCl (Methadose) 120 mg PO DAILY [facility] Last Admin: 07/04/17 10:53 Dose: 120 mg Methadone HCl (Methadone) 30 mg PO DAILY [facility] Last Admin: 07/04/17 10:53 Dose: 30 mg Sennosides (Senokot Tab) 8.6 mg PO DAILY [facility] - Labs Labs: 07/02/17 07:20 07/02/17 07:20 PT 10.5 SECONDS (9.7-12.2) 06/23/17 23:34 INR 0.9 06/23/17 23:34 APTT 31 SECONDS (21-34) 06/23/17 23:34 - Constitutional Appears: Non-toxic, No Acute Distress, Chronically Ill - Head Exam Head Exam: ATRAUMATIC, NORMAL INSPECTION, NORMOCEPHALIC - Eye Exam Eye Exam: EOMI, Normal appearance, PERRL Pupil Exam: NORMAL ACCOMODATION - ENT Exam ENT Exam: Mucous Membranes Moist, Normal Exam, Normal Oropharynx - Neck Exam Neck Exam: Normal Inspection - Respiratory Exam Respiratory Exam: Decreased Breath Sounds, NORMAL BREATHING PATTERN - Cardiovascular Exam Cardiovascular Exam: REGULAR RHYTHM, +S1, +S2 - GI/Abdominal Exam GI & Abdominal Exam: Soft, Normal Bowel Sounds - Extremities Exam Extremities Exam: Normal Capillary Refill - Back Exam Back Exam: NORMAL INSPECTION - Neurological Exam Neurological Exam: Alert, Awake, CN II-XII Intact, Normal Gait, Oriented x3 Neuro motor strength exam: Left Upper Extremity: 5, Right Upper Extremity: 5, Left Lower Extremity: 5, Right Lower Extremity: 5 - Psychiatric Exam Psychiatric exam: Anxious, Flat Affect - Skin Skin Exam: Intact Assessment and Plan (1) COPD (chronic obstructive pulmonary disease) Status: Chronic (2) Diabetic leg ulcer Status: Acute (3) HTN (hypertension) Status: Chronic (4) Uncontrolled diabetes mellitus Status: Chronic (5) UTI (urinary tract infection) due to Enterococcus Status: Acute
[2017-07-05] MEDS: Albuterol-Ipratrop 3 mg / 0.5 (3 ml) UD INH SCH ×2 (02:04→08:06)
[2017-07-05] MEDS: (Novolog) Insulin Aspart, Recombinant 100 u/ml 10 ml vial SC SCH (06:57)
[2017-07-05 07:20] LABS: BASO # 0.1 K/uL (0.0-0.2); BASO % 0.8 % (0.0-2.0); EOS # 0.4 K/uL (0.0-0.7); HEMATOCRIT 37.1 % (34.0-47.0); LYMPH # 2.7 K/uL (1.0-4.3); LYMPH % 39.2 % (20.0-40.0); MEAN CELL VOLUME 73.3 fL (81.0-99.0); MEAN CORPUSCULAR HEMOGLOBIN 21.8 pg (27.0-31.0); MEAN CORPUSCULAR HGB CONC 29.8 g/dL (33.0-37.0); MONO # 0.7 K/uL (0.0-0.8); MONO % 10.6 % (0.0-10.0); RED CELL DISTRIBUTION WIDTH 15.1 % (11.5-14.5)
[2017-07-05 08:00] LABS: POTASSIUM 4.2 mmol/L (3.6-5.2)
[2017-07-05 08:04] LABS: CALCIUM 8.8 mg/dl (8.6-10.4)
[2017-07-05] MEDS: (Novolog Mix 70/30) Insulin Aspart/Insulin Aspar 100 units/ml SC SCH (08:41)
[2017-07-05] MEDS: Enoxaparin 30 mg Syringe SC SCH (09:23)
[2017-07-05] MEDS: Methadone 40 mg Tab PO SCH (09:24)
--- NOTE | 2017-07-05 11:15 | CP.PCM.PN ---
Subjective - Date & Time of Evaluation Date of Evaluation: 07/05/17 Time of Evaluation: 11:14 - Subjective Subjective: PT CLEARED FOR D/C TODAY. D/C TO [facility] EXTENDED. DISCUSSED WITH DR. PASTRANA THAT PT IS REFUSING TO GO ELSEWHERE AND OK TO D/C TO [facility] PER HIM. PT TO F/U WITH DR. PASTRANA UPON D/C FROM [facility] TO ARRANGE TRANSPORTATION. NO FURTHER ORDERS. Objective - Vital Signs/Intake and Output Vital Signs (last 24 hours): Temp Pulse Resp BP Pulse Ox 98 F 85 20 160/94 H 94 L 07/05/17 07:44 07/05/17 09:25 07/05/17 07:44 07/05/17 09:25 07/05/17 07:44 Intake and Output: 07/05/17 07/05/17 06:59 18:59 Intake Total 400 Balance 400 - Medications Medications: Current Medications Acetaminophen (Tylenol 325mg Tab) 650 mg PO Q6 PRN PRN Reason: Pain, Mild (1-3) Albuterol/Ipratropium (Duoneb 3 Mg/0.5 Mg (3 Ml) Ud) 3 ml INH RQ6 [facility] Last Admin: 07/05/17 08:06 Dose: 3 ml Docusate Sodium (Colace) 100 mg PO BID [facility] Last Admin: 07/05/17 09:23 Dose: 100 mg Enoxaparin Sodium (Lovenox) 30 mg SC DAILY [facility] Last Admin: 07/05/17 09:23 Dose: 30 mg Colistimethate Sodium 150 mg/ (Sodium Chloride) 100 mls @ 200 mls/hr IV Q36H [facility] Last Admin: 07/05/17 10:25 Dose: 200 mls/hr Insulin Aspart (Novolog) 0 unit SC ACHS [facility] PRN Reason: Protocol Last Admin: 07/05/17 06:57 Dose: Not Given Insulin Aspart (Novolog Mix 70/30 (70/30 Units/Ml)) 20 units SC ACBD [facility] Last Admin: 07/05/17 08:41 Dose: 20 units Losartan Potassium (Cozaar) 50 mg PO DAILY [facility] Last Admin: 07/05/17 09:24 Dose: 50 mg Methadone HCl (Methadose) 120 mg PO DAILY [facility] Last Admin: 07/05/17 09:24 Dose: 120 mg Methadone HCl (Methadone) 30 mg PO DAILY [facility] Last Admin: 07/05/17 09:25 Dose: 30 mg Sennosides (Senokot Tab) 8.6 mg PO DAILY [facility] Last Admin: 07/05/17 09:22 Dose: 8.6 mg - Labs Labs: 07/05/17 07:10 07/05/17 07:10 PT 10.5 SECONDS (9.7-12.2) 06/23/17 23:34 INR 0.9 06/23/17 23:34 APTT 31 SECONDS (21-34) 06/23/17 23:34
[2017-07-05 11:52] VITALS: BP 164/94; PULSE 83; RESP 21; TEMP 98.1; O2SAT 92
--- NOTE | 2017-07-05 13:22 | CP.PCM.PN ---
Subjective - Date & Time of Evaluation Date of Evaluation: 07/05/17 Time of Evaluation: 10:45 - Subjective Subjective: Podiatry progress note for Dr. Huynh 57 year old female was seen resting comfortably at bedside 11 day s/p left leg wound graft application. Denies any pain to the LLE. She denies any F/C/N/V/ SOB. Patient is awaiting discharge to rehab shortly to [facility]. Objective - Vital Signs/Intake and Output Vital Signs (last 24 hours): Temp Pulse Resp BP Pulse Ox 98.1 F 83 21 164/94 H 92 L 07/05/17 11:40 07/05/17 11:40 07/05/17 11:40 07/05/17 11:40 07/05/17 11:40 Intake and Output: 07/05/17 07/05/17 06:59 18:59 Intake Total 400 680 Balance 400 680 - Labs Labs: 07/05/17 07:10 07/05/17 07:10 PT 10.5 SECONDS (9.7-12.2) 06/23/17 23:34 INR 0.9 06/23/17 23:34 APTT 31 SECONDS (21-34) 06/23/17 23:34 - Constitutional Appears: Well, Non-toxic, No Acute Distress - Extremities Exam Additional comments: Left lower extremity focused examination: VASC: DP and PT pulses are palpable, Temperature gradient WNL, CFT <3 seconds to all digits, no pedal edema noted DERM: Dressing to LLE with significant drainage upon dressing change. Full thickness ulceration is noted to distal aspect of leg measures approximately 4.7 x 5.2 x 0.2 cm with mixed fibro-granular base and wound graft fully incorporated into wound base. All sutures are intact to wound borders. No malodor, no surrounding erythema, no ascending cellulitis, no purulence, slight serous drainage is noted, no fluctuance, no undermining, no probe to bone noted. NEURO: gross sensation diminished bilaterally ORTHO: no tenderness elicited upon dressing change or palpation of wound periphery - Neurological Exam Neurological Exam: Alert, Awake, Oriented x3 - Psychiatric Exam Psychiatric exam: Normal Affect, Normal Mood Assessment and Plan - Assessment and Plan (Free Text) Assessment: 57 year old female 11 days s/p left leg wound graft application Plan: Patient examined and evaluated Discussed plan in detail with attending, Dr. Huynh. labs, chart, and vitals reviewed: afebrile, WBC 7.0 Wound dressed with Aquacel Ag wound dressing, DSD, and Coban Pt D/C to [facility] at [facility] Pt informed to make appointment with Dr. Huynh to F/U within 5-7 days of D/C from rehab Pt D/C following dressing change today
--- NOTE | 2017-07-05 23:26 | CP.PCM.DIS ---
Provider - Provider Date of Admission: 06/17/17 18:30 Attending physician: Fernando Godinez MD Diagnosis - Discharge Diagnosis (1) COPD (chronic obstructive pulmonary disease) Status: Chronic Priority: Low (2) Diabetic leg ulcer Status: Acute Priority: High (3) HTN (hypertension) Status: Chronic (4) Uncontrolled diabetes mellitus Status: Chronic Priority: Medium (5) UTI (urinary tract infection) due to Enterococcus Status: Acute Hospital Course - Lab Results Lab Results: Micro Results 06/29/17 15:21 Leg - Left Gram Stain - Final 06/29/17 15:21 Leg - Left Wound Culture - Final Pseudomonas Aeruginosa 06/23/17 11:00 Urine,Clean Catch Urine Culture - Final No Growth (<1,000 CFU/ML) 06/19/17 11:20 Urine Urine Culture - Final Enterococcus Faecium 06/17/17 Unknown Leg - Left Gram Stain - Final 06/17/17 Unknown Leg - Left Wound Culture - Final Pseudomonas Aeruginosa Most Recent Lab Values WBC 7.0 K/uL (4.8-10.8) 07/05/17 07:10 RBC 5.06 Mil/uL (3.80-5.20) 07/05/17 07:10 Hgb 11.1 g/dL (11.0-16.0) 07/05/17 07:10 Hct 37.1 % (34.0-47.0) 07/05/17 07:10 MCV 73.3 fL (81.0-99.0) L 07/05/17 07:10 MCH 21.8 pg (27.0-31.0) L 07/05/17 07:10 MCHC 29.8 g/dL (33.0-37.0) L 07/05/17 07:10 RDW 15.1 % (11.5-14.5) H 07/05/17 07:10 Plt Count 202 K/uL (130-400) 07/05/17 07:10 MPV 10.0 fL (7.2-11.7) 07/05/17 07:10 Neut % (Auto) 44.4 % (50.0-75.0) L 07/05/17 07:10 Lymph % (Auto) 39.2 % (20.0-40.0) 07/05/17 07:10 [place] % (Auto) 10.6 % (0.0-10.0) H 07/05/17 07:10 Eos % (Auto) 5.0 % (0.0-4.0) H 07/05/17 07:10 Baso % (Auto) 0.8 % (0.0-2.0) 07/05/17 07:10 Neut # 3.1 K/uL (1.8-7.0) 07/05/17 07:10 Lymph # 2.7 K/uL (1.0-4.3) 07/05/17 07:10 [place] # 0.7 K/uL (0.0-0.8) 07/05/17 07:10 Eos # 0.4 K/uL (0.0-0.7) 07/05/17 07:10 Baso # 0.1 K/uL (0.0-0.2) 07/05/17 07:10 Neutrophils % (Manual) 80 % (50-75) H 06/19/17 06:10 Band Neutrophils % 7 % (0-2) H 06/19/17 06:10 Lymphocytes % (Manual) 6 % (20-40) L 06/19/17 06:10 Monocytes % (Manual) 3 % (0-10) 06/19/17 06:10 Eosinophils % (Manual) 4 % (0-4) 06/19/17 06:10 Platelet Estimate Normal (NORMAL) 06/19/17 06:10 Large Platelets Present 06/19/17 06:10 Hypochromasia (manual) Slight 06/19/17 06:10 Poikilocytosis (manual Slight 06/19/17 06:10 Anisocytosis (manual) Slight 06/19/17 06:10 Microcytosis (manual) Slight 06/19/17 06:10 Target Cells Slight 06/19/17 06:10 PT 10.5 SECONDS (9.7-12.2) 06/23/17 23:34 INR 0.9 06/23/17 23:34 APTT 31 SECONDS (21-34) 06/23/17 23:34 Sodium 142 mmol/L (132-148) 07/05/17 07:10 Potassium 4.2 mmol/L (3.6-5.2) 07/05/17 07:10 Chloride 99 mmol/L (98-107) 07/05/17 07:10 Carbon Dioxide 37 mmol/L (22-30) H 07/05/17 07:10 Anion Gap 10 (10-20) 07/05/17 07:10 BUN 21 mg/dL (7-17) H 07/05/17 07:10 Creatinine 2.0 MG/DL (0.7-1.2) H 07/05/17 07:10 Est GFR ( Amer) 31 07/05/17 07:10 Est GFR (Non-Af Amer) 26 07/05/17 07:10 POC Glucose (mg/dL) 113 mg/dL (65-110) H 07/05/17 06:16 Random Glucose 81 mg/dL (65-105) 07/05/17 07:10 Hemoglobin A1c 7.8 % (4.2-6.5) H 06/27/17 04:49 Calcium 8.8 mg/dl (8.6-10.4) 07/05/17 07:10 Total Bilirubin 0.5 mg/dL (0.2-1.3) 06/18/17 11:54 AST 20 U/L (14-36) 06/18/17 11:54 ALT 26 U/L (9-52) 06/18/17 11:54 Alkaline Phosphatase 89 U/L (38-126) 06/18/17 11:54 NT-Pro-B Natriuret Pep 216 pg/mL (0-900) 06/17/17 17:36 Total Protein 6.6 g/dL (6.3-8.3) 06/18/17 11:54 Albumin 2.8 g/dL (3.5-5.0) L 06/18/17 11:54 Globulin 3.8 gm/dL (2.2-3.9) 06/18/17 11:54 Albumin/Globulin Ratio 0.7 (1.0-2.1) L 06/18/17 11:54 Urine Color Straw (YELLOW) 06/23/17 10:15 Urine Clarity Clear (Clear) 06/23/17 10:15 Urine pH 7.0 (5.0-8.0) 06/23/17 10:15 Ur Specific [place] 1.008 (1.003-1.030) 06/23/17 10:15 Urine Protein Negative mg/dL (NEGATIVE) 06/23/17 10:15 Urine Glucose (UA) Normal mg/dL (Normal) 06/23/17 10:15 Urine Ketones Negative mg/dL (NEGATIVE) 06/23/17 10:15 Urine Blood Negative (NEGATIVE) 06/23/17 10:15 Urine Nitrate Negative (NEGATIVE) 06/23/17 10:15 Urine Bilirubin Negative (NEGATIVE) 06/23/17 10:15 Urine Urobilinogen Normal mg/dL (0.2-1.0) 06/23/17 10:15 Ur Leukocyte Esterase Neg Jean/uL (Negative) 06/23/17 10:15 Urine WBC (Auto) < 1 /hpf (0-5) 06/23/17 10:15 Urine RBC (Auto) < 1 /hpf (0-3) 06/23/17 10:15 Ur Squamous Epith Cells 1 /hpf (0-5) 06/23/17 10:15 Urine Bacteria Rare (<OCC) 06/23/17 10:15 Urine Eosinophils Negative (NEGATIVE) 06/19/17 19:19 Ur Random Creatinine 237.3 mg/dL 06/19/17 19:19 Ur Random Sodium 21 mmol/L 06/19/17 19:19 Urine Chloride <15 mmol/L (32-290) L 06/19/17 22:45 Urine Opiates Screen Negative (NEGATIVE) 06/19/17 09:38 Urine Methadone Screen Positive (NEGATIVE) 06/19/17 09:38 Ur Barbiturates Screen Negative (NEGATIVE) 06/19/17 09:38 Ur Phencyclidine Scrn Negative (NEGATIVE) 06/19/17 09:38 Ur Amphetamines Screen Negative (NEGATIVE) 06/19/17 09:38 U Benzodiazepines Scrn Positive (NEGATIVE) 06/19/17 09:38 U Oth Cocaine Metabols Positive (NEGATIVE) 06/19/17 09:38 U Cannabinoids Screen Negative (NEGATIVE) 06/19/17 09:38 - Hospital Course Hospital Course: ADMITTED WITH L LEG ULCER. S/P GRAFT WOUND INFECTION WITH PSEUDOMONOAS Discharge Exam - Head Exam Head Exam: ATRAUMATIC, NORMAL INSPECTION, NORMOCEPHALIC - Eye Exam Eye Exam: EOMI, Normal appearance, PERRL Pupil Exam: NORMAL ACCOMODATION - ENT Exam ENT Exam: Mucous Membranes Moist, Normal Exam, Normal Oropharynx, TM's Normal Bilaterally - Neck Exam Neck exam: Full Rom, Normal Inspection - Respiratory Exam Respiratory Exam: Rhonchi, NORMAL BREATHING PATTERN - Cardiovascular Exam Cardiovascular Exam: REGULAR RHYTHM, +S1, +S2 - GI/Abdominal Exam GI & Abdominal Exam: Normal Bowel Sounds - Neurological Exam Neurological exam: Alert, CN II-XII Intact, Normal Gait, Oriented x3, Reflexes Normal - Psychiatric Exam Psychiatric exam: Anxious - Skin Skin Exam: Intact Discharge Plan - Follow Up Plan Condition: STABLE Disposition: HOME/ ROUTINE Instructions: Pneumococcal Polyvalent Vaccine (By injection), Methadone (By mouth), Colistimethate (By injection), Wound Infection (DC), Urinary Tract Infection in Women (DC), Diabetes Mellitus Type 2 in Adults (DC), Influenza Vaccine (DC), COPD (Chronic Obstructive Pulmonary Disease) (DC), Meal Planning with Diabetes Exchanges (DC), Chronic Wound Care (DC), Chronic Hypertension (DC) , Low Sodium Diet (DC) Additional Instructions: FOLLOW UP WITH DR. GODINEZ WITHIN 5-7 DAYS AFTER DISCHARGE HOME FROM [facility]. FOLLOW UP WITH DR. HUYNH WITHIN 5-7 DAYS AFTER DISCHARGE HOME FROM [facility]. STOP TAKING NORVASC AT HOME BECAUSE OF KIDNEY DAMAGE. PLEASE FOLLOW MEDICATION LIST (PAPER FORM) FOR CONTINUATION OF MEDS WHILE AT [facility] EXT. 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 THANKS. CONTINUE COLY-MYCIN 150 MG IV Q36 HOURS X10 DAYS---LAST DOSE GIVEN 07/05/17 AT 10:30 AM PRIOR TO DISCHARGE; LAST DOSE TO BE GIVEN TO COMPLETE REGIMEN TO BE ON 07/13/17 PICC LINE CARE PER FACILITY PROTOCOL. MS. URIAS TAKES METHADONE 150 MG PO DAILY WOUND CARE FOLLOWS: WOUND TO BE DRESSED WITH AQUACELL AND COBAN AND DRY STERILE DRESSING THROUGHOUT THE LOWER EXTREMITY FOR LEG COMPRESSION. Referrals: Cal Llanos MD [Staff Provider] - Katya Silva MD [Staff Provider] - Fernando Godinez MD [Staff Provider] - Fish Huynh DPM [Staff Provider] -
--- NOTE | 2017-07-18 18:51 | CARD ---
APPROVED REPORT EKG Measurement Heart [id number] <Conclusion> Normal sinus rhythm Prolonged QT Abnormal ECG
== END 2017-07-05 11:40 | DRG 287 ==
LOC: C.ER 15:27 → C.9E 18:30 → C.3T 21:33 → C.5T 06-20 20:00
PROVIDERS: ADMIT Internal Medicine; ATTEND Internal Medicine
PROC: 5A09357 Assistance with Respiratory Ventilation, Less than 24 Consecutive Hours, Continuous Positive Airway Pressure (ICD-10-PCS; 2017-06-19)
PROC: 02HV33Z Insertion of Infusion Device into Superior Vena Cava, Percutaneous Approach (ICD-10-PCS; 2017-06-21)
PROC: 0HRLXK3 Replacement of Left Lower Leg Skin with Nonautologous Tissue Substitute, Full Thickness, External Approach (ICD-10-PCS; 2017-06-24)
PROC: 0HBLXZX Excision of Left Lower Leg Skin, External Approach, Diagnostic (ICD-10-PCS; 2017-06-24)
PROC: 0HBLXZZ Excision of Left Lower Leg Skin, External Approach (ICD-10-PCS; principal; 2017-06-24 11:00)
DX: E11.622 Type 2 diabetes mellitus with other skin ulcer (principal); L97.829 Non-pressure chronic ulcer of other part of left lower leg with unspecified severity; N17.0 Acute kidney failure with tubular necrosis; F11.20 Opioid dependence, uncomplicated; E11.65 Type 2 diabetes mellitus with hyperglycemia; Z68.41 Body mass index [BMI] 40.0-44.9, adult; J44.9 Chronic obstructive pulmonary disease, unspecified; L03.116 Cellulitis of left lower limb; E86.9 Volume depletion, unspecified; B96.5 Pseudomonas (aeruginosa) (mallei) (pseudomallei) as the cause of diseases classified elsewhere; N39.0 Urinary tract infection, site not specified; I87.2 Venous insufficiency (chronic) (peripheral); E11.628 Type 2 diabetes mellitus with other skin complications; F41.9 Anxiety disorder, unspecified; M19.90 Unspecified osteoarthritis, unspecified site; E78.00 Pure hypercholesterolemia, unspecified; I10 Essential (primary) hypertension; G43.909 Migraine, unspecified, not intractable, without status migrainosus; F17.210 Nicotine dependence, cigarettes, uncomplicated; E66.01 Morbid (severe) obesity due to excess calories; Z86.73 Personal history of transient ischemic attack (TIA), and cerebral infarction without residual deficits; Z16.24 Resistance to multiple antibiotics; B95.2 Enterococcus as the cause of diseases classified elsewhere; Z16.21 Resistance to vancomycin; Z79.4 Long term (current) use of insulin

== ENCOUNTER 2018-03-18 11:18 | Inpatient (IN) | payer MEDICAID ==
[2018-03-18 11:18] VITALS: BMI 42.7
[2018-03-18 13:15] LABS: BASO # 0.1 K/uL (0.0-0.2); BASO % 0.7 % (0.0-2.0); EOS # 0.3 K/uL (0.0-0.7); EOS % 3.2 % (0.0-4.0); LYMPH # 2.2 K/uL (1.0-4.3); LYMPH % 27.5 % (20.0-40.0); MEAN CORPUSCULAR HEMOGLOBIN 20.1 pg (27.0-31.0); MEAN CORPUSCULAR HGB CONC 29.8 g/dL (33.0-37.0); MEAN PLATELET VOLUME 9.1 fL (7.2-11.7); MONO # 0.6 K/uL (0.0-0.8); MONO % 7.5 % (0.0-10.0); NEUT # 4.9 K/uL (1.8-7.0); NEUT % 61.1 % (50.0-75.0); NRBC % 0.2 % (0.0-2.0); RBC 4.35 Mil/uL (3.80-5.20)
[2018-03-18 13:28] LABS: HEMOGLOBIN 8.7 g/dL (11.0-16.0); PROTHROMBIN TIME 11.3 SECONDS (9.7-12.2)
[2018-03-18 13:29] LABS: MEAN CELL VOLUME 67.2 fL (81.0-99.0)
[2018-03-18] MEDS ORDERED: Albuterol-Ipratrop 3 mg / 0.5 (3 ml) UD IH STA (13:29)
--- NOTE | 2018-03-18 13:31 | C.PDOC ---
History Of Present Illness 57 y/o female with history of IDDM, COPD, HTN, h xof opioid abuse on methadone presents to ED with c/o intermittent right lower leg cramping developed 2 weeks ago. PAtient reports, cramps over Right calf intermittent, " noted some knot over right calf". Patient states lately she has been having cramping to left arm too. Pt denies fever, chills, headache, dizziness, drooling, CP, SOB, dyspnea, diaphoresis, palpitation, abd. pain, nausea, vomiting, denies weakness , sensory or vascular deficits to Right leg. Ambulate to Ed for evaluation, not in any apparent distress. On triage, noted hypoxia, pt denies SOB, wheezing or any other related sx. Appears comfortable. Time Seen by Provider: 03/18/18 11:53 Chief Complaint (Nursing): Lower Extremity Problem/Injury History Per: Patient History/Exam Limitations: no limitations Onset/Duration Of Symptoms: Days Current Symptoms Are (Timing): Still Present Past Medical History Reviewed: Historical Data, Nursing Documentation, Vital Signs Vital Signs: Last Vital Signs Temp 98.1 F 03/18/18 15:40 Pulse 85 03/18/18 17:45 Resp 16 03/18/18 17:45 BP 148/90 03/18/18 17:45 Pulse Ox 95 03/18/18 17:45 - Medical History PMH: Anxiety (NO MED), Arthritis, Asthma, Bronchitis, COPD (USE OF BIPAP HOME O2 ), Diabetes, HTN, Hypercholesterolemia, Migraine Surgical History: No Surg Hx - [facility] Procedures ASSISTANCE WITH RESPIRATORY VENTILATION, 24-96 HRS, CPAP (11/25/16) ASSISTANCE WITH RESPIRATORY VENTILATION, <24 HRS, CPAP (06/17/17) EXCISION OF L LOW LEG SUBCU/FASCIA, OPEN APPROACH (04/20/17) EXCISION OF LEFT LOWER LEG SKIN, EXTERNAL APPROACH (06/17/17) EXCISION OF LEFT LOWER LEG SKIN, EXTERNAL APPROACH, DIAGN (06/17/17) INSERTION OF INFUSION DEV INTO SUP VENA CAVA, PERC APPROACH (06/17/17) REPLACE L LOW LEG SKIN W NONAUT SUB, FULL THICK, 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 Constitutional: Negative for: Fever, Chills Eyes: Negative for: Vision Change ENT: Negative for: Mouth Swelling, Throat Pain, Throat Swelling Cardiovascular: Negative for: Chest Pain, Palpitations Respiratory: Negative for: Cough, Shortness of Breath, Wheezing Gastrointestinal: Negative for: Nausea, Vomiting, Abdominal Pain, Diarrhea Genitourinary: Negative for: Dysuria Musculoskeletal: Positive for: Arm Pain, Leg Pain Skin: Negative for: Rash Neurological: Negative for: Numbness Physical Exam - Physical Exam Appears: Well, Non-toxic, No Acute Distress Skin: Warm, Dry, No Rash, Other (well healed multiple Lower legs ulcers) Head: Normacephalic Eye(s): bilateral: PERRL Nose: No Flaring, No Discharge Oral Mucosa: Moist, No Drooling Throat: No Drooling Neck: Trachea Midline, Supple Cardiovascular: Rhythm Regular, No Murmur, No JVD, Other ((-) carotid bruits B/L ) Respiratory: No Decreased Breath Sounds, No Accessory Muscle Use, No Rales, No Rhonchi, No Stridor, No Wheezing Gastrointestinal/Abdominal: Soft, No Tenderness, No Guarding, No Rebound Extremity: No Pedal Edema, Calf Tenderness (Right), Capillary Refill (<2 seconds ), No Deformity Pulses: Right Dorsalis Pedis: Normal Neurological/Psych: Oriented x3, Normal Speech, Normal Cognition, Normal Motor, Normal Sensation, Normal Reflexes ED Course And Treatment - Laboratory Results Result Diagrams: 03/18/18 13:11 03/18/18 13:11 Lab Interpretation: Abnormal ECG: Interpreted By Me, Viewed By Me (Dr Francis) Interpretation Of ECG: SR@84/min, NAD, no acute T wave or ST-T changes O2 Sat by Pulse Oximetry: 90 (RA) Pulse Ox Interpretation: Abnormal - CT Scan/US CT chest Other Rad Studies (CT/US): Radiology Report Reviewed CT/US Interpretation: PROCEDURE: CT Chest with contrast (Pulmonary Angiogram). HISTORY: hypoxia, leg pain. COMPARISON: None available. TECHNIQUE: Axial computed tomography images were obtained of the chest in the pulmonary arterial phase of enhancement. Coronal and sagittal reformatted images were created and reviewed. Intravenous contrast dose: O come on the eyelids S. Radiation dose: Total exam DLP = 529.89 mGy-cm. This CT exam was performed using one or more of the following dose reduction techniques: Automated exposure control, adjustment of the mA and/or kV according to patient size, and/or use of iterative reconstruction technique. FINDINGS: PULMONARY ARTERIES: Unremarkable. No pulmonary embolism. AORTA: No acute findings. No thoracic aortic aneurysm. LUNGS: Unremarkable. No nodule, mass or pulmonary consolidation. PLEURAL SPACES: Unremarkable. No effusion or pneuomothorax. HEART: Unremarkable. No cardiomegaly. No significant pericardial effusion. LYMPH NODES: Mild mediastinal and right hilar lymphadenopathy, nonspecific. BONES, CHEST WALL: Unremarkable. No fracture or destructive lesion. OTHER FINDINGS: Unremarkable. IMPRESSION: No evidence of pulmonary embolism. Mild mediastinal and right hilar lymphadenopathy common nonspecific. No pulmonary infiltrate/ pleural effusion. Venous Doppler US, RLE Other Rad Studies (CT/US): Radiology Report Reviewed CT/US Interpretation: (-) DVT RLE Progress Note: On re-evaluation, pt is remained stable. Afebrile, hemodynamicaly stable. Blood work review, noted low Hg compare to previous visits. Troponin, CPK - normal. Pt denies melena, vaginal bleeding or any other complaints. Doppler US (-) DVT RLE. CT chest (-) PE. Case discussed with and admission arranged. Transfusion offered to patient, agrees. Dx: Symptomatic anemia, hypoxia, hx of COPD. Disposition - Disposition Disposition: HOSPITALIZED Disposition Time: 15:00 Condition: STABLE - Clinical Impression Clinical Impression: Anemia, Hypoxia, Dehydration - PA / COVER CREASER / Resident Statement MD/DO has reviewed & agrees with the documentation as recorded. - Scribe Statement The provider has reviewed the documentation as recorded by the Yordyibjulisa Luna All medical record entries made by the Dena were at my direction and personally dictated by me. I have reviewed the chart and agree that the record accurately reflects my personal performance of the history, physical exam, medical decision making, and the department course for this patient. I have also personally directed, reviewed, and agree with the discharge instructions and disposition.
[2018-03-18 13:34] LABS: ALB/GLOB RATIO 0.7 (1.0-2.1); ALBUMIN 3.5 g/dL (3.5-5.0); ALT/SGPT 12 U/L (9-52); AST/SGOT 20 U/L (14-36); BLOOD UREA NITROGEN 23 mg/dL (7-17); CALCIUM 8.5 mg/dl (8.6-10.4); GFR AFRICAN-AMERICAN > 60; GFR NON-AFRICAN AMERICAN > 60
[2018-03-18] MEDS ORDERED: Albuterol-Ipratrop 3 mg / 0.5 (3 ml) UD ONE (14:01)
[2018-03-18] MEDS ORDERED: Iodixanol 320 MG/ML 100 ML BOTTLE IV ONE (14:25)
--- NOTE | 2018-03-18 15:06 | CT ---
PROCEDURE: CT Chest with contrast (Pulmonary Angiogram) HISTORY: hypoxia, leg pain COMPARISON: None available. TECHNIQUE: Axial computed tomography images were obtained of the chest in the pulmonary arterial phase of enhancement. Coronal and sagittal reformatted images were created and reviewed. Intravenous contrast dose: O come on the eyelids S Radiation dose: Total exam DLP = 529.89 mGy-cm. This CT exam was performed using one or more of the following dose reduction techniques: Automated exposure control, adjustment of the mA and/or kV according to patient size, and/or use of iterative reconstruction technique. FINDINGS: PULMONARY ARTERIES: Unremarkable. No pulmonary embolism. AORTA: No acute findings. No thoracic aortic aneurysm. LUNGS: Unremarkable. No nodule, mass or pulmonary consolidation. PLEURAL SPACES: Unremarkable. No effusion or pneuomothorax. HEART: Unremarkable. No cardiomegaly. No significant pericardial effusion. LYMPH NODES: Mild mediastinal and right hilar lymphadenopathy, nonspecific. BONES, CHEST WALL: Unremarkable. No fracture or destructive lesion OTHER FINDINGS: Unremarkable. IMPRESSION: No evidence of pulmonary embolism. Mild mediastinal and right hilar lymphadenopathy common nonspecific. No pulmonary infiltrate/ pleural effusion.
[2018-03-18] MEDS ORDERED: Sodium Chloride 0.9% 1,000 ML IV ONE (15:53)
[2018-03-18] MEDS ORDERED: Sodium Chloride 0.9% 1,000 ML ONE (16:47)
--- NOTE | 2018-03-18 22:20 | CP.PCM.HP ---
History of Present Illness - History of Present Illness History of Present Illness: CC: left calf pain, cramping x 2 weeks History Of Present Illness 57 y/o obese female with history of IDDM, COPD, HTN, hx of opioid abuse on methadone presents to ED with c/o intermittent right lower leg cramping developed 2 weeks ago. PAtient reports, cramps over Right calf intermittent, " noted some knot over right calf". Patient states lately she has been having cramping to left arm too. Pt denies fever, chills, headache, dizziness, drooling , CP, SOB, dyspnea, diaphoresis, palpitation, abd. pain, nausea, vomiting, denies weakness, sensory or vascular deficits to Right leg. Ambulate to Ed for evaluation, not in any apparent distress. On triage, noted hypoxia, pt denies SOB, wheezing or any other related sx. Appears comfortable. she reports occasional shortness of breath, she smoker half pack per day and is chronic smoker Present on Admission - Present on Admission Any Indicators Present on Admission: Yes Review of Systems - Review of Systems Systems not reviewed;Unavailable: Acuity of Condition - Constitutional Constitutional: Fatigue, Lethargy - EENT Eyes: absent: As Per HPI, Blind Spots, Blurred Vision, Change in Vision, Decreased Night Vision, Diplopia, Discharge, Dry Eye, Exophthalmos, Floaters, Irritation, Itchy Eyes, Loss of Peripheral Vision, Pain, Photophobia, Requires Corrective Lenses, Sees Flashes, Spots in Vision, Tunnel Vision, Other Visual Disturbances, Loss of Vision, Other Nose/Mouth/Throat: absent: As Per HPI, Epistaxis, Nasal Congestion, Nasal Discharge, Nasal Obstruction, Nasal Trauma, Nose Pain, Post Nasal Drip, Sinus Pain, Sinus Pressure, Bleeding Gums, Change in Voice, Dental Pain, Dry Mouth, Dysphagia, Halitosis, Hoarsness, Lip Swelling, Mouth Lesions, Mouth Pain, Odynophagia, Sore Throat, Throat Swelling, Tongue Swelling, Facial Pain, Neck Pain, Neck Mass, Other - Cardiovascular Cardiovascular: Dyspnea. absent: As Per HPI, Acrocyanosis, Chest Pain, Chest Pain at Rest, Chest Pain with Activity, Claudication, Diaphoresis, Dyspnea on Exertion, Edema, Irregular Heart Rhythm, Pain Radiating to Arm/Neck/Jaw, Leg Edema, Leg Ulcers, Lightheadedness, Orthopnea, Palpitations, Paroxysmal Nocturnal Dyspnea, Pedal Edema, Radiating Pain, Rapid Heart Rate, Slow Heart Rate, Syncope, Other - Respiratory Respiratory: Cough, Wheezing - Gastrointestinal Gastrointestinal: absent: As Per HPI, Abdominal Pain, Belching, Bloating, Change in Bowel Habits, Change in Stool Character, Coffee Ground Emesis, Constipation, Cramping, Diarrhea, Dyspepsia, Dysphagia, Early Satiety, Excessive Flatus, Fecal Incontinence, Heartburn, Hematemesis, Hematochezia, Loose Stools, Melena, Nausea, Odynophagia, Temesmus, Vomiting, Other - Genitourinary Genitourinary: absent: As Per HPI, Change in Urinary Stream, Difficulty Urinating, Dysuria, Flank Pain, Hematuria, Pyuria, Nocturia, Urinary Incontinence, Urinary Frequency, Urinary Hesitance, Urinary Urgency, Voiding Freq/Small Amts, Freq UTI, Hx Renal/Bladder Calculi, Hx /Renal Surgery, Bladder Distension, Other - Menstruation Menstruation: absent: As Per HPI, Amenorrhea, Amenorrhea/ Control, Currently Menstual, Cycle <21 Days, Cycle >35 Days, Cycle Variable, Menses 1-7 Days, Menses >/= 8 Days, Menses Variable, Cycle > 4 Weeks Between, No Menses for 6 Months, Heavy Menses, Light Menses, Normal Menses, Spotting Between Cycles , S/P Hysterectomy, Menopausal, Post Menopausal, Premenarche, Abnormal Vaginal Bleeding, Dysmenorrhea, Other - Musculoskeletal Musculoskeletal: Muscle Cramps, Muscle Weakness - Integumentary Integumentary: absent: As Per HPI, Acne, Alopecia, Bleeding Lesions, Change in Hair, Change in Nails, Change in Pigmentation, Changing Lesions, Dry Skin, Erythema, Furuncle, Hirsutism, Lesions, New Lesions, Non-Healing Lesions, Photosensitivity, Pruritus, Rash, Skin Pain, Skin Ulcer, Sores, Striae, Swelling , Unusual Bruising, Wounds, Jaundice, Other Past Patient History - Infectious Disease Hx of Infectious Diseases: None - Past Medical History & Family History Past Medical History?: Yes - Past Social History Smoking Status: Heavy Smoker > 10 Cigarettes Daily - CARDIAC Hx Hypercholesterolemia: Yes Hx Hypertension: Yes - PULMONARY Hx Asthma: Yes Hx Bronchitis: Yes Hx Chronic Obstructive Pulmonary Disease (COPD): Yes (USE OF BIPAP HOME O2) - NEUROLOGICAL Hx Migraine: Yes - HEENT Hx HEENT Problems: Yes Other/Comment: wears prescription eyeglasses - RENAL Hx Chronic Kidney Disease: No - ENDOCRINE/METABOLIC Hx Endocrine Disorders: Yes Hx Diabetes Mellitus Type 1: Yes - HEMATOLOGICAL/ONCOLOGICAL Hx Blood Disorders: No Hx Blood Transfusions: No Hx Blood Transfusion Reaction: No - INTEGUMENTARY Hx Dermatological Problems: No - MUSCULOSKELETAL/RHEUMATOLOGICAL Hx Arthritis: Yes - GASTROINTESTINAL Hx Gastrointestinal Disorders: Yes Hx Constipation: Yes - GENITOURINARY/GYNECOLOGICAL Hx Genitourinary Disorders: No - PSYCHIATRIC Hx Anxiety: Yes (NO MED) Hx Substance Use: Yes (on methadone 90 mg po) - SURGICAL HISTORY Hx Surgeries: Yes Hx Section: Yes Other/Comment: BOTH LEGS SKIN GRAFT - ANESTHESIA Hx Anesthesia: Yes Hx Anesthesia Reactions: No Hx Malignant Hyperthermia: No Meds Allergies/Adverse Reactions: Allergies Allergy/AdvReac Type Severity Reaction Status Date / Time No Known Allergies Allergy Verified 06/17/17 15:31 Physical Exam - Constitutional Appears: No Acute Distress Additional comments: middle aged female in NAD - Eye Exam Eye Exam: EOMI, Normal appearance, PERRL Pupil Exam: NORMAL ACCOMODATION, PERRL - Respiratory Exam Respiratory Exam: Decreased Breath Sounds, Clear to Auscultation Bilateral - Cardiovascular Exam Cardiovascular Exam: REGULAR RHYTHM - GI/Abdominal Exam GI & Abdominal Exam: Normal Bowel Sounds, Soft. absent: Tenderness - Rectal Exam Rectal Exam: Deferred - Extremities Exam Extremities exam: Positive for: calf tenderness Additional comments: 3x 3 cm swelling on left calf, tender to touch - Back Exam Back exam: NORMAL INSPECTION Additional comments: left leg calf is tender to touch with redness and erythema - Neurological Exam Neurological exam: Alert, CN II-XII Intact, Normal Gait, Oriented x3, Reflexes Normal - Psychiatric Exam Psychiatric exam: Normal Affect, Normal Mood - Skin Skin Exam: Normal Color, Warm Results - Vital Signs Recent Vital Signs: Last Vital Signs Temp 98.4 F 03/18/18 22:07 Pulse 85 03/18/18 22:07 Resp 18 03/18/18 22:07 BP 134/98 H 03/18/18 22:07 Pulse Ox 96 03/18/18 22:07 - Labs Result Diagrams: 03/19/18 07:43 03/18/18 13:11 Labs: Laboratory Results - last 24 hr 03/18/18 03/18/18 03/18/18 13:11 13:11 13:11 WBC 8.0 RBC 4.35 Hgb 8.7 L D Hct 29.3 L MCV 67.2 L D MCH 20.1 L MCHC 29.8 L RDW 19.0 H Plt Count 258 MPV 9.1 Neut % (Auto) 61.1 Lymph % (Auto) 27.5 Ray % (Auto) 7.5 Eos % (Auto) 3.2 Baso % (Auto) 0.7 Neut # (Auto) 4.9 Lymph # (Auto) 2.2 Ray # (Auto) 0.6 Eos # (Auto) 0.3 Baso # (Auto) 0.1 Differential Comment PT 11.3 INR 1.0 APTT 24 Sodium 140 Potassium 4.3 Chloride 97 L Carbon Dioxide 37 H Anion Gap 11 BUN 23 H Creatinine 0.9 Est GFR ( Amer) > 60 Est GFR (Non-Af Amer) > 60 Random Glucose 156 H Calcium 8.5 L Total Bilirubin 0.4 AST 20 ALT 12 Alkaline Phosphatase 142 H Total Creatine Kinase Troponin I < 0.0120 Total Protein 8.4 H Albumin 3.5 D Globulin 4.9 H Albumin/Globulin Ratio 0.7 L Blood Type Antibody Screen 03/18/18 03/18/18 16:09 16:41 WBC RBC Hgb Hct MCV MCH MCHC RDW Plt Count MPV Neut % (Auto) Lymph % (Auto) Ray % (Auto) Eos % (Auto) Baso % (Auto) Neut # (Auto) Lymph # (Auto) Ray # (Auto) Eos # (Auto) Baso # (Auto) Differential Comment PT INR APTT Sodium Potassium Chloride Carbon Dioxide Anion Gap BUN Creatinine Est GFR ( Amer) Est GFR (Non-Af Amer) Random Glucose Calcium Total Bilirubin AST ALT Alkaline Phosphatase Total Creatine Kinase 102 Troponin I Total Protein Albumin Globulin Albumin/Globulin Ratio Blood Type A NEGATIVE Antibody Screen Negative Assessment & Plan (1) Cellulitis Assessment and Plan: cellulitis vs PAD Status: Acute (2) Type 1 diabetes mellitus with diabetic nephropathy Status: Acute (3) COPD (chronic obstructive pulmonary disease) Status: Chronic Priority: Low (4) HTN (hypertension) Status: Chronic
[2018-03-19] MEDS ORDERED: DiphenhydrAMINE 50 mg/ml Inj IVP STA (05:20)
--- NOTE | 2018-03-19 05:50 | CP.PCM.PCO ---
Physician Communication Note - Physician Communication Note Physician Communication Note: Received call from nurse for facial swelling Assessment & Plan - Assessment and Plan (Free Text) Assessment: Recieved call from nurse that patient developed facial swelling after receiving clindamycin. Went to examine the patient. patient's eyelids were swollen. Patient was talking without difficulty and denied having any problems breathing. Ordered Methylprednisolone 125 mg IVP stat, benadryl 50 mg IVP and pepcid 40 mg po. - Date & Time Date: 03/19/18 Time: 05:51
[2018-03-19] MEDS: (Novolog) Insulin Aspart, Recombinant 100 u/ml 10 ml vial SC SCH ×4 (08:23→21:56)
[2018-03-19 08:25] LABS: IRON 18 ug/dL (37-170)
[2018-03-19 08:28] LABS: BASO # 0.1 K/uL (0.0-0.2); BASO % 1.5 % (0.0-2.0); EOS # 0.2 K/uL (0.0-0.7); EOS % 2.5 % (0.0-4.0); HEMOGLOBIN 8.9 g/dL (11.0-16.0); LYMPH # 2.3 K/uL (1.0-4.3); LYMPH % 26.4 % (20.0-40.0); MEAN CELL VOLUME 69.4 fL (81.0-99.0); MEAN CORPUSCULAR HEMOGLOBIN 20.6 pg (27.0-31.0); MEAN CORPUSCULAR HGB CONC 29.7 g/dL (33.0-37.0); MEAN PLATELET VOLUME 9.1 fL (7.2-11.7); MONO # 0.7 K/uL (0.0-0.8); MONO % 8.1 % (0.0-10.0); NEUT # 5.3 K/uL (1.8-7.0); NEUT % 61.5 % (50.0-75.0); NRBC % 0.3 % (0.0-2.0); RBC 4.31 Mil/uL (3.80-5.20); RED CELL DISTRIBUTION WIDTH 20.5 % (11.5-14.5); WHITE BLOOD COUNT 8.7 K/uL (4.8-10.8)
[2018-03-19 08:52] LABS: % IRON SATURATION 5 (20-55); TOTAL IRON BINDING CAPACITY 386 ug/dL (250-450)
[2018-03-19] MEDS: Enoxaparin 40 mg Syringe SC SCH (09:15)
[2018-03-19] MEDS ORDERED: ALOGLIPTIN BENZ PO SCH (10:00)
[2018-03-19] MEDS ORDERED: LISPRO SQ SCH (10:00)
[2018-03-19] MEDS ORDERED: METFORMIN HCL PO SCH (10:00)
[2018-03-19] MEDS ORDERED: INSULIN LISPRO PROTAMIN SQ SCH (10:00)
--- NOTE | 2018-03-19 10:50 | VASCLAB ---
PROCEDURE: Right Lower Extremity Venous Duplex Exam. HISTORY: Pain, swelling PRIORS: Last exam 06/2017, normal. TECHNIQUE: Right common femoral, femoral, popliteal and posterior tibial, peroneal and great saphenous veins were evaluated. Flow was assessed with color Doppler, compressibility, assessment of phasic flow and augmentation response. Report prepared by FADUMO Farooq FINDINGS: RIGHT: 1. Common Femoral Vein: 1.1. Compressibility - Fully compressible: Thrombus - None: Flow - Phasic: Augmentation -Normal: Reflux - None. 2. Femoral Vein: 2.1. Compressibility - Fully compressible: Thrombus - None: Flow - Phasic: Augmentation -Normal: Reflux - None. 3. Popliteal Vein: 3.1. Compressibility - Fully compressible: Thrombus - None: Flow - Phasic: Augmentation -Normal: Reflux - None. 4. Posterior Tibial Vein: 4.1. Compressibility - Fully compressible: Thrombus - None: Flow - Phasic: Augmentation -Normal: Reflux - None. 5. Peroneal Vein: 5.1. Compressibility - Fully compressible: Thrombus - None: Flow - Phasic: Augmentation -Normal: Reflux - None. 6. Great Saphenous Vein: 6.1. Compressibility - Fully compressible: Thrombus -None: Flow - Phasic: Augmentation - Normal: Reflux - None. OTHER FINDINGS: IMPRESSION: No evidence of deep or superficial vein thrombosis of the right lower extremity with excellent venous flow. Normal valve function noted of the right side. Normal venous flow noted in the left common femoral vein.
[2018-03-19] MEDS: Methadone 40 mg Tab PO SCH (11:07)
[2018-03-19] MEDS: Ferric Sodium Gluconat Complex 62.5 mg/5 ml Vial IVPB SCH (13:22)
[2018-03-19] MEDS: Albuterol-Ipratrop 3 mg / 0.5 (3 ml) UD INH SCH ×2 (13:41→19:42)
[2018-03-19] MEDS: Piperacill/Tazo 3.375gm in Dex 3.375 GM/50 ML BAG IVPB SCH ×2 (14:04→21:57)
--- NOTE | 2018-03-19 14:22 | CP.PCM.CON ---
History of Present Illness - History of Present Illness History of Present Illness: Podiatry Consult note for Dr. Huynh 57 year old female with PMHx including DM, COPD, HTN, hx of opioid abuse was seen at bedside for right calf pain. She states that she has been having cramps and having a knot over her right calf. She states that her previous wounds are now closed. She denies any n/v/f/c/sob/cp. Past Patient History - Infectious Disease Hx of Infectious Diseases: None - Past Medical History & Family History Past Medical History?: Yes - Past Social History Smoking Status: Former Smoker - CARDIAC Hx Cardiac Disorders: Yes Hx Hypercholesterolemia: Yes Hx Hypertension: Yes - PULMONARY Hx Respiratory Disorders: Yes Hx Asthma: Yes Hx Bronchitis: Yes Hx Chronic Obstructive Pulmonary Disease (COPD): Yes (USE OF BIPAP HOME O2) - NEUROLOGICAL Hx Neurological Disorder: Yes Hx Migraine: Yes - HEENT Hx HEENT Problems: Yes Other/Comment: wears prescription eyeglasses - RENAL Hx Chronic Kidney Disease: No - ENDOCRINE/METABOLIC Hx Endocrine Disorders: Yes Hx Diabetes Mellitus Type 1: Yes - HEMATOLOGICAL/ONCOLOGICAL Hx Blood Disorders: No Hx Blood Transfusions: No Hx Blood Transfusion Reaction: No - INTEGUMENTARY Hx Dermatological Problems: No - MUSCULOSKELETAL/RHEUMATOLOGICAL Hx Musculoskeletal Disorders: Yes Hx Arthritis: Yes Hx Falls: No - GASTROINTESTINAL Hx Gastrointestinal Disorders: Yes Hx Constipation: Yes - GENITOURINARY/GYNECOLOGICAL Hx Genitourinary Disorders: No - PSYCHIATRIC Hx Psychophysiologic Disorder: Yes Hx Anxiety: Yes (NO MED) Hx Substance Use: Yes (on methadone 90 mg po) - SURGICAL HISTORY Hx Surgeries: Yes Hx Section: Yes Other/Comment: BOTH LEGS SKIN GRAFT - ANESTHESIA Hx Anesthesia: Yes Hx Anesthesia Reactions: No Hx Malignant Hyperthermia: No Has any member of the family had a problem w/ anesthesia?: No Meds Allergies/Adverse Reactions: Allergies Allergy/AdvReac Type Severity Reaction Status Date / Time No Known Allergies Allergy Verified 06/17/17 15:31 - Medications Medications: Current Medications Albuterol/Ipratropium (Duoneb 3 Mg/0.5 Mg (3 Ml) Ud) 3 ml INH RQ6 [facility] Last Admin: 03/19/18 13:41 Dose: 3 ml Aspirin (Aspirin Chewable) 81 mg PO DAILY [facility] Last Admin: 03/19/18 09:15 Dose: 81 mg Enoxaparin Sodium (Lovenox) 40 mg SC DAILY [facility] Last Admin: 03/19/18 09:15 Dose: 40 mg Ferric Sodium Gluconate Complex (Ferrlecit) 125 mg IVPB DAILY [facility] Stop: 03/27/18 13:16 Last Admin: 03/19/18 13:22 Dose: 125 mg Home Med (Alogliptin Adalberto/Metformin Hcl [Alogliptin-Metformin 12.5-1000]) 1 each PO BID [facility] Last Admin: 03/19/18 11:10 Dose: Not Given Home Med (Insulin Lispro Protamin/Lispro [Humalog Mix 75-25 Kwikpen]) 35 unit SQ HS [facility] Home Med (Insulin Lispro Protamin/Lispro [Humalog Mix 75-25 Kwikpen]) 40 unit SQ AMHS [facility] Last Admin: 03/19/18 11:10 Dose: Not Given Hydrochlorothiazide (Microzide) 12.5 mg PO DAILY [facility] Last Admin: 03/19/18 09:15 Dose: 12.5 mg Piperacillin Sod/Tazobactam Sod (Zosyn 3.375 Gm Iv Premix) 3.375 gm in 50 mls @ 100 mls/hr IVPB Q8H [facility] PRN Reason: Protocol Last Admin: 03/19/18 14:04 Dose: 100 mls/hr Insulin Aspart (Novolog) 0 unit SC ACHS [facility] PRN Reason: Protocol Last Admin: 03/19/18 11:57 Dose: 3 unit Losartan Potassium (Cozaar) 100 mg PO DAILY [facility] Last Admin: 03/19/18 09:15 Dose: 100 mg Methadone HCl (Methadose) 120 mg PO DAILY [facility] Last Admin: 03/19/18 11:07 Dose: 120 mg Methadone HCl (Methadone) 30 mg PO DAILY [facility] Pioglitazone HCl (Actos) 15 mg PO DAILY [facility] Last Admin: 03/19/18 09:15 Dose: 15 mg Physical Exam - Constitutional Appears: Well, Non-toxic, No Acute Distress - Extremities Exam Additional comments: lower extremity focused exam: VASC: DP and PT pulses are palpable b/l, Temperature gradient WNL, 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 Healed ulceration site noted to distal left leg. NEURO: gross sensation diminished bilaterally ORTHO: tenderness on palpation to right proximal medial calf - Neurological Exam Neurological exam: Alert, Oriented x3 - Psychiatric Exam Psychiatric exam: Normal Affect, Normal Mood Results - Vital Signs Recent Vital Signs: Last Vital Signs Temp 98.2 F 03/19/18 07:30 Pulse 71 03/19/18 07:30 Resp 21 03/19/18 07:30 BP 131/90 03/19/18 07:30 Pulse Ox 96 03/19/18 07:30 - Labs Result Diagrams: 03/19/18 07:43 03/18/18 13:11 Labs: Laboratory Results - last 24 hr 03/18/18 03/18/18 03/18/18 07:43 16:09 16:41 WBC RBC Hgb Hct MCV MCH MCHC RDW Plt Count MPV Neut % (Auto) Lymph % (Auto) [place] % (Auto) Eos % (Auto) Baso % (Auto) Neut # (Auto) Lymph # (Auto) [place] # (Auto) Eos # (Auto) Baso # (Auto) POC Glucose (mg/dL) Iron 18 L TIBC 386 % Saturation 5 L Total Creatine Kinase 102 Blood Type A NEGATIVE Antibody Screen Negative 03/19/18 03/19/18 03/19/18 07:43 08:04 11:00 WBC 8.7 RBC 4.31 Hgb 8.9 L Hct 30.0 L MCV 69.4 L D MCH 20.6 L MCHC 29.7 L RDW 20.5 H Plt Count 234 MPV 9.1 Neut % (Auto) 61.5 Lymph % (Auto) 26.4 [place] % (Auto) 8.1 Eos % (Auto) 2.5 Baso % (Auto) 1.5 Neut # (Auto) 5.3 Lymph # (Auto) 2.3 [place] # (Auto) 0.7 Eos # (Auto) 0.2 Baso # (Auto) 0.1 POC Glucose (mg/dL) 203 H 283 H Iron TIBC % Saturation Total Creatine Kinase Blood Type Antibody Screen Assessment & Plan - Assessment and Plan (Free Text) Assessment: 57 year old female with right leg pain Plan: patient examined and evaluated discussed in detail with attending, Dr. Huynh chart, labs, vitals reviewed; afebrile, WBC 8.7 Venous duplex impressions: no evidence of deep or superficial vein thrombrosis of the right lower extremity with excellent venous flow, normal valve function noted of the right side. Normal venous flow noted in the left common femoral vein no dressing needed patient to follow up with Dr. Huynh as an outpatient thank you for allowing us to participate in the care for your patient
[2018-03-19] MEDS: ALOGLIPTIN PO SCH (18:20)
[2018-03-19] MEDS: METFORMIN PO SCH (18:20)
--- NOTE | 2018-03-19 19:14 | CARD ---
APPROVED REPORT EKG Measurement Heart [id number] <Conclusion> Normal sinus rhythm Nonspecific T wave abnormality Abnormal ECG
[2018-03-19] MEDS: HUMALOG 75/25 SC SCH (21:57)
[2018-03-20] MEDS: Albuterol-Ipratrop 3 mg / 0.5 (3 ml) UD INH SCH ×4 (02:38→19:35)
--- NOTE | 2018-03-20 04:02 | CP.PCM.PN ---
Subjective - Date & Time of Evaluation Date of Evaluation: 03/19/18 Time of Evaluation: 18:00 - Subjective Subjective: Pt is seen and examined, seen by vascular too, still c/o left calf pain, s/p venous duplex Venous duplex impressions: no evidence of deep or superficial vein thrombrosis of the right lower extremity with excellent venous flow, normal valve function noted of the right side. Normal venous flow noted in the left common femoral vein no dressing needed Objective - Vital Signs/Intake and Output Vital Signs (last 24 hours): Temp Pulse Resp BP Pulse Ox 101.4 F H 88 20 136/85 95 03/20/18 01:27 03/19/18 16:00 03/19/18 16:00 03/19/18 16:00 03/19/18 16:00 Intake and Output: 03/19/18 03/20/18 18:59 06:59 Intake Total 700 460 Output Total 800 Balance 700 -340 - Medications Medications: Current Medications Albuterol/Ipratropium (Duoneb 3 Mg/0.5 Mg (3 Ml) Ud) 3 ml INH RQ6 [facility] Last Admin: 03/20/18 02:38 Dose: Not Given Aspirin (Aspirin Chewable) 81 mg PO DAILY [facility] Last Admin: 03/19/18 09:15 Dose: 81 mg Enoxaparin Sodium (Lovenox) 40 mg SC DAILY [facility] Last Admin: 03/19/18 09:15 Dose: 40 mg Ferric Sodium Gluconate Complex (Ferrlecit) 125 mg IVPB DAILY [facility] Stop: 03/27/18 13:16 Last Admin: 03/19/18 13:22 Dose: 125 mg Home Med (Patient's Own Injectable) 30 unit SC HS [facility] Last Admin: 03/19/18 21:57 Dose: 30 unit Home Med (Patient's Own Injectable) 40 unit SC QAM [facility] Home Med (Patient's Own Medication) 1 tab PO BID [facility] Last Admin: 03/19/18 18:20 Dose: 1 tab Hydrochlorothiazide (Microzide) 12.5 mg PO DAILY [facility] Last Admin: 03/19/18 09:15 Dose: 12.5 mg Piperacillin Sod/Tazobactam Sod (Zosyn 3.375 Gm Iv Premix) 3.375 gm in 50 mls @ 100 mls/hr IVPB Q8H [facility] PRN Reason: Protocol Last Admin: 03/19/18 21:57 Dose: 100 mls/hr Insulin Aspart (Novolog) 0 unit SC ACHS [facility] PRN Reason: Protocol Last Admin: 03/19/18 21:56 Dose: Not Given Losartan Potassium (Cozaar) 100 mg PO DAILY [facility] Last Admin: 03/19/18 09:15 Dose: 100 mg Methadone HCl (Methadose) 120 mg PO DAILY [facility] Last Admin: 03/19/18 11:07 Dose: 120 mg Methadone HCl (Methadone) 30 mg PO DAILY [facility] Pioglitazone HCl (Actos) 15 mg PO DAILY [facility] Last Admin: 03/19/18 09:15 Dose: 15 mg - Labs Labs: 03/19/18 07:43 03/18/18 13:11 PT 11.3 SECONDS (9.7-12.2) 03/18/18 13:11 INR 1.0 03/18/18 13:11 APTT 24 SECONDS (21-34) 03/18/18 13:11 - Constitutional Appears: No Acute Distress - Head Exam Head Exam: ATRAUMATIC, NORMAL INSPECTION, NORMOCEPHALIC - Eye Exam Eye Exam: EOMI, Normal appearance, PERRL Pupil Exam: NORMAL ACCOMODATION, PERRL - Respiratory Exam Respiratory Exam: Clear to Ausculation Bilateral, NORMAL BREATHING PATTERN - Cardiovascular Exam Cardiovascular Exam: REGULAR RHYTHM, +S1, +S2. absent: Murmur - GI/Abdominal Exam GI & Abdominal Exam: Soft, Normal Bowel Sounds. absent: Tenderness - Rectal Exam Rectal Exam: Deferred - Extremities Exam Extremities Exam: Calf Tenderness - Back Exam Back Exam: NORMAL INSPECTION Assessment and Plan (1) Cellulitis Assessment & Plan: Assessment: 57 year old female with left leg pain. Rule out Cellulitis Vs PAD Plan: patient examined and evaluated chart, labs, vitals reviewed; afebrile, WBC 8.7 Venous duplex impressions: no evidence of deep or superficial vein thrombrosis of the right lower extremity with excellent venous flow, normal valve function noted of the right side. Normal venous flow noted in the left common femoral vein no dressing needed Status: Acute (2) Type 1 diabetes mellitus with diabetic nephropathy Status: Acute (3) COPD (chronic obstructive pulmonary disease) Status: Chronic (4) HTN (hypertension) Status: Chronic
[2018-03-20] MEDS: Piperacill/Tazo 3.375gm in Dex 3.375 GM/50 ML BAG IVPB SCH ×3 (05:34→23:39)
[2018-03-20] MEDS: (Novolog) Insulin Aspart, Recombinant 100 u/ml 10 ml vial SC SCH ×4 (08:08→21:21)
[2018-03-20 08:11] LABS: BASO % 0.3 % (0.0-2.0); EOS # 0.2 K/uL (0.0-0.7); EOS % 1.5 % (0.0-4.0); HEMOGLOBIN 8.8 g/dL (11.0-16.0); LYMPH # 0.4 K/uL (1.0-4.3); LYMPH % 2.5 % (20.0-40.0); MEAN CELL VOLUME 68.1 fL (81.0-99.0); MEAN CORPUSCULAR HEMOGLOBIN 20.5 pg (27.0-31.0); MEAN CORPUSCULAR HGB CONC 30.1 g/dL (33.0-37.0); MEAN PLATELET VOLUME 9.1 fL (7.2-11.7); MONO # 0.3 K/uL (0.0-0.8); NEUT # 13.8 K/uL (1.8-7.0); NEUT % 93.7 % (50.0-75.0); NRBC % 0.2 % (0.0-2.0); PLATELET COUNT 231 K/uL (130-400); RBC 4.29 Mil/uL (3.80-5.20); RED CELL DISTRIBUTION WIDTH 20.4 % (11.5-14.5)
[2018-03-20 08:15] LABS: WHITE BLOOD COUNT 14.8 K/uL (4.8-10.8)
[2018-03-20 08:19] LABS: CALCIUM 8.2 mg/dl (8.6-10.4)
--- NOTE | 2018-03-20 09:21 | CP.PCM.PN ---
<Fish Huynh - Last Filed: 03/20/18 09:19> Subjective - Date & Time of Evaluation Date of Evaluation: 03/20/18 Time of Evaluation: 09:20 - Subjective Subjective: pt seen on rounds this am with resident for continued tx of lower legs .No complaints this am Objective - Vital Signs/Intake and Output Vital Signs (last 24 hours): Temp Pulse Resp BP Pulse Ox 99.8 F H 105 H 20 120/83 93 L 03/20/18 08:11 03/20/18 08:11 03/20/18 08:11 03/20/18 08:11 03/20/18 08:11 Intake and Output: 03/20/18 03/20/18 06:59 18:59 Intake Total 460 Output Total 800 Balance -340 - Medications Medications: Current Medications Albuterol/Ipratropium (Duoneb 3 Mg/0.5 Mg (3 Ml) Ud) 3 ml INH RQ6 [facility] Last Admin: 03/20/18 02:38 Dose: Not Given Aspirin (Aspirin Chewable) 81 mg PO DAILY [facility] Last Admin: 03/19/18 09:15 Dose: 81 mg Enoxaparin Sodium (Lovenox) 40 mg SC DAILY [facility] Last Admin: 03/19/18 09:15 Dose: 40 mg Famotidine (Pepcid) 40 mg PO DAILY [facility] Ferric Sodium Gluconate Complex (Ferrlecit) 125 mg IVPB DAILY [facility] Stop: 03/27/18 13:16 Last Admin: 03/19/18 13:22 Dose: 125 mg Home Med (Patient's Own Injectable) 30 unit SC HS [facility] Last Admin: 03/19/18 21:57 Dose: 30 unit Home Med (Patient's Own Injectable) 40 unit SC QAM [facility] Home Med (Patient's Own Medication) 1 tab PO BID [facility] Last Admin: 03/19/18 18:20 Dose: 1 tab Hydrochlorothiazide (Microzide) 12.5 mg PO DAILY [facility] Last Admin: 03/19/18 09:15 Dose: 12.5 mg Insulin Aspart (Novolog) 0 unit SC ACHS [facility] PRN Reason: Protocol Last Admin: 03/20/18 08:08 Dose: Not Given Losartan Potassium (Cozaar) 100 mg PO DAILY [facility] Last Admin: 03/19/18 09:15 Dose: 100 mg [facility] ([facility]) [facility] Last Admin: 03/20/18 08:41 Dose: 850 mg Methadone HCl (Methadose) 120 mg PO DAILY [facility] Last Admin: 03/19/18 11:07 Dose: 120 mg Methadone HCl (Methadone) 30 mg PO DAILY [facility] Sitagliptin Phosphate (Januvia) 100 mg PO DAILY [facility] - Labs Labs: 03/20/18 07:58 03/20/18 07:58 PT 11.3 SECONDS (9.7-12.2) 03/18/18 13:11 INR 1.0 03/18/18 13:11 APTT 24 SECONDS (21-34) 03/18/18 13:11 <Linsey Sanches - Last Filed: 03/20/18 11:00> Objective - Vital Signs/Intake and Output Vital Signs (last 24 hours): Temp Pulse Resp BP Pulse Ox 99.8 F H 105 H 20 120/83 93 L 03/20/18 08:11 03/20/18 08:11 03/20/18 08:11 03/20/18 08:11 03/20/18 08:11 Intake and Output: 03/20/18 03/20/18 06:59 18:59 Intake Total 460 Output Total 800 Balance -340 - Medications Medications: Current Medications Albuterol/Ipratropium (Duoneb 3 Mg/0.5 Mg (3 Ml) Ud) 3 ml INH RQ6 [facility] Last Admin: 03/20/18 02:38 Dose: Not Given Aspirin (Aspirin Chewable) 81 mg PO DAILY [facility] Last Admin: 03/20/18 10:37 Dose: 81 mg Enoxaparin Sodium (Lovenox) 40 mg SC DAILY [facility] Last Admin: 03/20/18 10:39 Dose: 40 mg Famotidine (Pepcid) 40 mg PO DAILY [facility] Last Admin: 03/20/18 10:56 Dose: 40 mg Ferric Sodium Gluconate Complex (Ferrlecit) 125 mg IVPB DAILY [facility] Stop: 03/27/18 13:16 Last Admin: 03/20/18 10:38 Dose: 125 mg Home Med (Patient's Own Injectable) 30 unit SC HS [facility] Last Admin: 03/19/18 21:57 Dose: 30 unit Home Med (Patient's Own Injectable) 40 unit SC QAM [facility] Last Admin: 03/20/18 10:37 Dose: 40 unit Home Med (Patient's Own Medication) 1 tab PO BID [facility] Last Admin: 03/20/18 10:36 Dose: 1 tab Hydrochlorothiazide (Microzide) 12.5 mg PO DAILY [facility] Last Admin: 03/20/18 10:37 Dose: 12.5 mg Insulin Aspart (Novolog) 0 unit SC ACHS [facility] PRN Reason: Protocol Last Admin: 03/20/18 08:08 Dose: Not Given Losartan Potassium (Cozaar) 100 mg PO DAILY [facility] Last Admin: 03/20/18 10:37 Dose: 100 mg Metformin HCl (Glucophage) [facility] Last Admin: 03/20/18 08:41 Dose: 850 mg Methadone HCl (Methadose) 120 mg PO DAILY [facility] Last Admin: 03/20/18 10:38 Dose: 120 mg Methadone HCl (Methadone) 30 mg PO DAILY [facility] Last Admin: 03/20/18 10:38 Dose: 30 mg Sitagliptin Phosphate (Januvia) 100 mg PO DAILY [facility] Last Admin: 03/20/18 10:37 Dose: 100 mg - Labs Labs: 03/20/18 07:58 03/20/18 07:58 PT 11.3 SECONDS (9.7-12.2) 03/18/18 13:11 INR 1.0 03/18/18 13:11 APTT 24 SECONDS (21-34) 03/18/18 13:11 - Constitutional Appears: Well, Non-toxic, No Acute Distress - Extremities Exam Additional comments: VASC: DP and PT pulses are palpable b/l, Temperature gradient WNL, RECREATION AIDE <3 seconds to all digits, no edema noted DERM: No open lesions noted to b/l LE. Healed ulceration site noted to distal left leg. NEURO: gross sensation diminished bilaterally ORTHO: tenderness on palpation to right proximal medial calf - Neurological Exam Neurological Exam: Alert, Awake, Oriented x3 - Psychiatric Exam Psychiatric exam: Normal Affect, Normal Mood Assessment and Plan - Assessment and Plan (Free Text) Assessment: 57 year old female with right leg pain Plan: patient examined and evaluated discussed in detail with attending, Dr. Huynh chart, labs, vitals reviewed; T=99.8, WBC 14.8 Venous duplex impressions: no evidence of deep or superficial vein thrombrosis of the right lower extremity with excellent venous flow, normal valve function noted of the right side. Normal venous flow noted in the left common femoral vein bacitracin to be applied to right healed ulcer patient to follow up with Dr. Huynh as an outpatient thank you for allowing us to participate in the care for your patient
[2018-03-20 09:53] LABS: BANDS 7 % (0-2); EOSINOPHIL 3 % (0-4); LYMPHOCYTE 2 % (20-40); MONOCYTE 1 % (0-10); NEUTROPHIL 87 % (50-75); TOTAL CELLS COUNTED 100
[2018-03-20 09:54] LABS: ANISOCYTOSIS MODERATE; HYPOCHROMIC MODERATE; PLATELET ESTIMATE NORMAL (NORMAL)
[2018-03-20] MEDS: METFORMIN PO SCH ×2 (10:36→17:22)
[2018-03-20] MEDS: ALOGLIPTIN PO SCH ×2 (10:36→17:22)
[2018-03-20] MEDS: HUMALOG 75/25 SC SCH ×2 (10:37→21:39)
[2018-03-20] MEDS: Ferric Sodium Gluconat Complex 62.5 mg/5 ml Vial IVPB SCH (10:38)
[2018-03-20] MEDS: Methadone 40 mg Tab PO SCH (10:38)
[2018-03-20] MEDS: Enoxaparin 40 mg Syringe SC SCH (10:39)
[2018-03-20 17:24] LABS: SQUAMOUS EPITHIAL 17 /hpf (0-5); URINE BACTERIA OCC (<OCC); URINE BILIRUBIN NEGATIVE (NEGATIVE); URINE BLOOD NEGATIVE (NEGATIVE); URINE CLARITY Hazy (Clear); URINE COLOR Amber (YELLOW); URINE GLUCOSE (UA) NORMAL (Normal); URINE LEUKOCYTE ESTERASE 1+ Leu/uL (Negative); URINE PROTEIN 1+ mg/dL (NEGATIVE); URINE UROBILINOGEN NORMAL mg/dL (0.2-1.0)
[2018-03-21] MEDS: Albuterol-Ipratrop 3 mg / 0.5 (3 ml) UD INH SCH ×4 (02:06→19:05)
[2018-03-21] MEDS: Piperacill/Tazo 3.375gm in Dex 3.375 GM/50 ML BAG IVPB SCH ×3 (05:25→17:20)
[2018-03-21 07:26] LABS: BASO % 0.2 % (0.0-2.0); EOS # 0.5 K/uL (0.0-0.7); EOS % 5.7 % (0.0-4.0); HEMOGLOBIN 8.8 g/dL (11.0-16.0); LYMPH # 0.7 K/uL (1.0-4.3); LYMPH % 7.8 % (20.0-40.0); MEAN CELL VOLUME 68.1 fL (81.0-99.0); MEAN CORPUSCULAR HEMOGLOBIN 20.7 pg (27.0-31.0); MEAN CORPUSCULAR HGB CONC 30.4 g/dL (33.0-37.0); MEAN PLATELET VOLUME 9.1 fL (7.2-11.7); MONO # 0.4 K/uL (0.0-0.8); MONO % 4.3 % (0.0-10.0); NEUT # 7.5 K/uL (1.8-7.0); NRBC % 0.3 % (0.0-2.0); PLATELET COUNT 208 K/uL (130-400); RBC 4.26 Mil/uL (3.80-5.20); RED CELL DISTRIBUTION WIDTH 20.3 % (11.5-14.5); WHITE BLOOD COUNT 9.2 K/uL (4.8-10.8)
[2018-03-21 07:41] LABS: CALCIUM 7.7 mg/dl (8.6-10.4)
[2018-03-21] MEDS: (Novolog) Insulin Aspart, Recombinant 100 u/ml 10 ml vial SC SCH ×4 (08:00→21:27)
--- NOTE | 2018-03-21 09:00 | CP.PCM.PN ---
Subjective - Date & Time of Evaluation Date of Evaluation: 03/20/18 Time of Evaluation: 21:00 - Subjective Subjective: PT SEEN AND EXAMINED, SHE HAS ACUTE ELEVATION OF BUN/ CREATININE,SHE IS IN PRE RENAL AZOTEMIA, SHE IS COUGHNG AND C/O NAUSEA NO VOMITTING, CHEST PAIN, PT IS FOR IV FLUIDS, BLOOD SUGARS AND URINE ANALYSIIS AND ELECTROLYTES Objective - Vital Signs/Intake and Output Vital Signs (last 24 hours): Temp Pulse Resp BP Pulse Ox 99.1 F 102 H 20 100/61 95 03/21/18 08:14 03/21/18 08:14 03/21/18 05:00 03/21/18 08:14 03/21/18 08:14 Intake and Output: 03/21/18 03/21/18 06:59 18:59 Intake Total 280 Balance 280 - Medications Medications: Current Medications Albuterol/Ipratropium (Duoneb 3 Mg/0.5 Mg (3 Ml) Ud) 3 ml INH RQ6 [facility] Last Admin: 03/21/18 07:55 Dose: 3 ml Aspirin (Aspirin Chewable) 81 mg PO DAILY [facility] Last Admin: 03/20/18 10:37 Dose: 81 mg Enoxaparin Sodium (Lovenox) 40 mg SC DAILY [facility] Last Admin: 03/20/18 10:39 Dose: 40 mg Famotidine (Pepcid) 40 mg PO DAILY [facility] Last Admin: 03/20/18 10:56 Dose: 40 mg Ferric Sodium Gluconate Complex (Ferrlecit) 125 mg IVPB DAILY [facility] Stop: 03/27/18 13:16 Last Admin: 03/20/18 10:38 Dose: 125 mg Home Med (Patient's Own Injectable) 30 unit SC HS [facility] Last Admin: 03/20/18 21:39 Dose: 30 unit Home Med (Patient's Own Injectable) 40 unit SC QAM [facility] Last Admin: 03/20/18 10:37 Dose: 40 unit Home Med (Patient's Own Medication) 1 tab PO DAILY [facility] Hydrochlorothiazide (Microzide) 12.5 mg PO DAILY [facility] Last Admin: 03/20/18 10:37 Dose: 12.5 mg Piperacillin Sod/Tazobactam Sod (Zosyn 3.375 Gm Iv Premix) 3.375 gm in 50 mls @ 100 mls/hr IVPB Q6H [facility] PRN Reason: Protocol Last Admin: 03/21/18 05:25 Dose: 100 mls/hr Insulin Aspart (Novolog) 0 unit SC ACHS [facility] PRN Reason: Protocol Last Admin: 03/21/18 08:00 Dose: Not Given Losartan Potassium (Cozaar) 100 mg PO DAILY [facility] Last Admin: 03/20/18 10:37 Dose: 100 mg Methadone HCl (Methadose) 120 mg PO DAILY [facility] Last Admin: 03/20/18 10:38 Dose: 120 mg Methadone HCl (Methadone) 30 mg PO DAILY [facility] Last Admin: 03/20/18 10:38 Dose: 30 mg Mupirocin (Bactroban Ointment) 0 gm TOP DAILY [facility] - Labs Labs: 03/21/18 07:08 03/21/18 07:08 PT 11.3 SECONDS (9.7-12.2) 03/18/18 13:11 INR 1.0 03/18/18 13:11 APTT 24 SECONDS (21-34) 03/18/18 13:11 Assessment and Plan (1) Cellulitis Status: Acute (2) Type 1 diabetes mellitus with diabetic nephropathy Status: Acute (3) COPD (chronic obstructive pulmonary disease) Status: Chronic (4) HTN (hypertension) Status: Chronic
--- NOTE | 2018-03-21 09:01 | CP.PCM.PN ---
Subjective - Date & Time of Evaluation Date of Evaluation: 03/21/18 Time of Evaluation: 18:00 - Subjective Subjective: PT SEEN AND EXAMINED, SHE HAS ACUTE ELEVATION OF BUN/ CREATININE,SHE IS IN PRE RENAL AZOTEMIA, SHE IS COUGHNG AND C/O NAUSEA NO VOMITTING, CHEST PAIN, PT IS FOR IV FLUIDS, BLOOD SUGARS AND URINE ANALYSIIS AND ELECTROLYTES Objective - Vital Signs/Intake and Output Vital Signs (last 24 hours): Temp Pulse Resp BP Pulse Ox 99.1 F 102 H 20 100/61 95 03/21/18 08:14 03/21/18 08:14 03/21/18 05:00 03/21/18 08:14 03/21/18 08:14 Intake and Output: 03/21/18 03/21/18 06:59 18:59 Intake Total 280 Balance 280 - Medications Medications: Current Medications Albuterol/Ipratropium (Duoneb 3 Mg/0.5 Mg (3 Ml) Ud) 3 ml INH RQ6 [facility] Last Admin: 03/21/18 07:55 Dose: 3 ml Aspirin (Aspirin Chewable) 81 mg PO DAILY [facility] Last Admin: 03/20/18 10:37 Dose: 81 mg Enoxaparin Sodium (Lovenox) 40 mg SC DAILY [facility] Last Admin: 03/20/18 10:39 Dose: 40 mg Famotidine (Pepcid) 40 mg PO DAILY [facility] Last Admin: 03/20/18 10:56 Dose: 40 mg Ferric Sodium Gluconate Complex (Ferrlecit) 125 mg IVPB DAILY [facility] Stop: 03/27/18 13:16 Last Admin: 03/20/18 10:38 Dose: 125 mg Home Med (Patient's Own Injectable) 30 unit SC HS [facility] Last Admin: 03/20/18 21:39 Dose: 30 unit Home Med (Patient's Own Injectable) 40 unit SC QAM [facility] Last Admin: 03/20/18 10:37 Dose: 40 unit Home Med (Patient's Own Medication) 1 tab PO DAILY [facility] Hydrochlorothiazide (Microzide) 12.5 mg PO DAILY [facility] Last Admin: 03/20/18 10:37 Dose: 12.5 mg Piperacillin Sod/Tazobactam Sod (Zosyn 3.375 Gm Iv Premix) 3.375 gm in 50 mls @ 100 mls/hr IVPB Q6H [facility] PRN Reason: Protocol Last Admin: 03/21/18 05:25 Dose: 100 mls/hr Insulin Aspart (Novolog) 0 unit SC ACHS [facility] PRN Reason: Protocol Last Admin: 03/21/18 08:00 Dose: Not Given Losartan Potassium (Cozaar) 100 mg PO DAILY [facility] Last Admin: 03/20/18 10:37 Dose: 100 mg Methadone HCl (Methadose) 120 mg PO DAILY [facility] Last Admin: 03/20/18 10:38 Dose: 120 mg Methadone HCl (Methadone) 30 mg PO DAILY [facility] Last Admin: 03/20/18 10:38 Dose: 30 mg Mupirocin (Bactroban Ointment) 0 gm TOP DAILY [facility] - Labs Labs: 03/21/18 07:08 03/21/18 07:08 PT 11.3 SECONDS (9.7-12.2) 03/18/18 13:11 INR 1.0 03/18/18 13:11 APTT 24 SECONDS (21-34) 03/18/18 13:11 - Constitutional Appears: No Acute Distress - Head Exam Head Exam: ATRAUMATIC, NORMAL INSPECTION, NORMOCEPHALIC - Eye Exam Eye Exam: EOMI, Normal appearance, PERRL Pupil Exam: NORMAL ACCOMODATION, PERRL - Respiratory Exam Respiratory Exam: Decreased Breath Sounds, Wheezes - Cardiovascular Exam Cardiovascular Exam: REGULAR RHYTHM, +S1, +S2. absent: Murmur - GI/Abdominal Exam GI & Abdominal Exam: Soft, Normal Bowel Sounds. absent: Tenderness Assessment and Plan (1) Cellulitis Status: Acute (2) Type 1 diabetes mellitus with diabetic nephropathy Status: Acute (3) COPD (chronic obstructive pulmonary disease) Status: Chronic (4) HTN (hypertension) Status: Chronic (5) Acute prerenal azotemia Assessment & Plan: IV FLUIDS ONCE PT IS HYDRATED BUN/CREATININE SHOULD GO DOWN Status: Acute
[2018-03-21 09:32] LABS: BANDS 5 % (0-2); EOSINOPHIL 5 % (0-4); LYMPHOCYTE 8 % (20-40); MONOCYTE 6 % (0-10); NEUTROPHIL 76 % (50-75); PLATELET ESTIMATE NORMAL (NORMAL); TOTAL CELLS COUNTED 100
[2018-03-21 09:33] LABS: ANISOCYTOSIS MODERATE; HYPOCHROMIC MODERATE; MICROCYTOSIS SLIGHT
[2018-03-21 09:34] LABS: TARGET CELLS SLIGHT
[2018-03-21] MEDS: Methadone 40 mg Tab PO SCH (09:34)
[2018-03-21] MEDS: Enoxaparin 40 mg Syringe SC SCH (09:35)
[2018-03-21] MEDS: Ferric Sodium Gluconat Complex 62.5 mg/5 ml Vial IVPB SCH (09:35)
[2018-03-21] MEDS: METFORMIN PO SCH (09:36)
[2018-03-21] MEDS: ALOGLIPTIN PO SCH (09:36)
[2018-03-21] MEDS: HUMALOG 75/25 SC SCH ×2 (09:37→21:44)
--- NOTE | 2018-03-21 10:38 | RAD ---
Chest x-ray two views History: Fever. Comparison: 06/17/2017 Findings: Diffuse increased interstitial lung markings bilaterally which may represent underlying infiltrate and or edema. More patchy increased markings at the bilateral lung bases. Mild nodularity at the left costophrenic angle. Right hilar prominence. Enlarged ectatic aorta. Mild cardiomegaly. Degenerative changes in the spine and shoulders. Impression: Diffuse increased interstitial lung markings bilaterally which may represent underlying infiltrate and or edema. More patchy increased markings at the bilateral lung bases. Mild nodularity at the left costophrenic angle. Enlarged ectatic aorta. Mild cardiomegaly.
[2018-03-21] MEDS ORDERED: Sodium Chloride 0.9% 1,000 ML IV ONE (18:01)
[2018-03-21] MEDS: Sodium Chloride 0.9% 1,000 ML IV SCH (19:45)
[2018-03-21 21:39] LABS: SQUAMOUS EPITHIAL 1 /hpf (0-5); URINE BILIRUBIN NEGATIVE (NEGATIVE); URINE BLOOD NEGATIVE (NEGATIVE); URINE CLARITY Clear (Clear); URINE COLOR Yellow (YELLOW); URINE GLUCOSE (UA) NORMAL (Normal); URINE PROTEIN NEGATIVE (NEGATIVE)
[2018-03-21 21:43] LABS: URINE LEUKOCYTE ESTERASE NEGATIVE Leu/uL (Negative)
[2018-03-22] MEDS: Piperacill/Tazo 3.375gm in Dex 3.375 GM/50 ML BAG IVPB SCH ×4 (00:52→17:33)
[2018-03-22] MEDS: Albuterol-Ipratrop 3 mg / 0.5 (3 ml) UD INH SCH ×4 (01:27→19:21)
[2018-03-22] MEDS: Sodium Chloride 0.9% 1,000 ML IV SCH ×2 (04:57→13:37)
[2018-03-22] MEDS: (Novolog) Insulin Aspart, Recombinant 100 u/ml 10 ml vial SC SCH ×4 (08:09→22:09)
[2018-03-22 08:15] LABS: HEMOGLOBIN 8.5 g/dL (11.0-16.0); MEAN CELL VOLUME 69.3 fL (81.0-99.0); MEAN CORPUSCULAR HEMOGLOBIN 20.8 pg (27.0-31.0); MEAN PLATELET VOLUME 9.4 fL (7.2-11.7); RBC 4.08 Mil/uL (3.80-5.20); RED CELL DISTRIBUTION WIDTH 20.2 % (11.5-14.5); WHITE BLOOD COUNT 7.4 K/uL (4.8-10.8)
[2018-03-22 08:39] LABS: CALCIUM 7.6 mg/dl (8.6-10.4)
[2018-03-22] MEDS: Methadone 40 mg Tab PO SCH (10:36)
[2018-03-22] MEDS: Enoxaparin 40 mg Syringe SC SCH (10:37)
[2018-03-22] MEDS: HUMALOG 75/25 SC SCH ×2 (10:38→21:50)
[2018-03-22] MEDS: Ferric Sodium Gluconat Complex 62.5 mg/5 ml Vial IVPB SCH (10:38)
[2018-03-22] MEDS: METFORMIN PO SCH (10:42)
[2018-03-22] MEDS: ALOGLIPTIN PO SCH (10:42)
--- NOTE | 2018-03-22 15:52 | US ---
PROCEDURE: Ultrasound of the Kidneys HISTORY: noel COMPARISON: None available. TECHNIQUE: Sonogram of the kidneys. FINDINGS: Body habitus limits definition of the bilateral kidneys. RIGHT KIDNEY: Measures: 9.8 x 4.4 x 4.7 cm. Normal in size, contour and overall echogenicity. No definite stone, solid mass lesion or hydronephrosis visualized. LEFT KIDNEY: Measures: 12.2 x 6.2 x 5.1 cm. Normal in size, contour and overall echogenicity. No definite stone, solid mass lesion or hydronephrosis visualized. OTHER FINDINGS: None. IMPRESSION: Somewhat limited exam due to body habitus but no definite hydronephrosis, urolithiasis, cystic/solid parenchymal mass or perinephric fluid collection evident. .
--- NOTE | 2018-03-22 16:56 | CP.PCM.CON ---
History of Present Illness - History of Present Illness History of Present Illness: pt is seen and examined, full consult is dictated #[id number] 1. Joe ,mostlikely sec to contrast induced nephropathy 2. anemia sec to fe def 3. htn 4. dm c/w ivf, change to 1/2 ns at 100 l. check bmp in am c/w iv fe Past Patient History - Infectious Disease Hx of Infectious Diseases: None - Past Medical History & Family History Past Medical History?: Yes - Past Social History Smoking Status: Former Smoker - CARDIAC Hx Cardiac Disorders: Yes Hx Hypercholesterolemia: Yes Hx Hypertension: Yes - PULMONARY Hx Respiratory Disorders: Yes Hx Asthma: Yes Hx Bronchitis: Yes Hx Chronic Obstructive Pulmonary Disease (COPD): Yes (USE OF BIPAP HOME O2) - NEUROLOGICAL Hx Neurological Disorder: Yes Hx Migraine: Yes - HEENT Hx HEENT Problems: Yes Other/Comment: wears prescription eyeglasses - RENAL Hx Chronic Kidney Disease: No - ENDOCRINE/METABOLIC Hx Endocrine Disorders: Yes Hx Diabetes Mellitus Type 1: Yes - HEMATOLOGICAL/ONCOLOGICAL Hx Blood Disorders: No Hx Blood Transfusions: No Hx Blood Transfusion Reaction: No - INTEGUMENTARY Hx Dermatological Problems: No - MUSCULOSKELETAL/RHEUMATOLOGICAL Hx Musculoskeletal Disorders: Yes Hx Arthritis: Yes Hx Falls: No - GASTROINTESTINAL Hx Gastrointestinal Disorders: Yes Hx Constipation: Yes - GENITOURINARY/GYNECOLOGICAL Hx Genitourinary Disorders: No - PSYCHIATRIC Hx Psychophysiologic Disorder: Yes Hx Anxiety: Yes (NO MED) Hx Substance Use: Yes (on methadone 90 mg po) - SURGICAL HISTORY Hx Surgeries: Yes Hx Section: Yes Other/Comment: BOTH LEGS SKIN GRAFT - ANESTHESIA Hx Anesthesia: Yes Hx Anesthesia Reactions: No Hx Malignant Hyperthermia: No Has any member of the family had a problem w/ anesthesia?: No Meds Allergies/Adverse Reactions: Allergies Allergy/AdvReac Type Severity Reaction Status Date / Time clindamycin AdvReac RASH Verified 03/20/18 08:01 - Medications Medications: Current Medications Albuterol/Ipratropium (Duoneb 3 Mg/0.5 Mg (3 Ml) Ud) 3 ml INH RQ6 [facility] Last Admin: 03/22/18 13:08 Dose: 3 ml Aspirin (Aspirin Chewable) 81 mg PO DAILY [facility] Last Admin: 03/22/18 10:38 Dose: 81 mg Enoxaparin Sodium (Lovenox) 40 mg SC DAILY [facility] Last Admin: 03/22/18 10:37 Dose: 40 mg Famotidine (Pepcid) 40 mg PO DAILY [facility] Last Admin: 03/22/18 10:38 Dose: 40 mg Ferric Sodium Gluconate Complex (Ferrlecit) 125 mg IVPB DAILY [facility] Stop: 03/27/18 13:16 Last Admin: 03/22/18 10:38 Dose: 125 mg Home Med (Patient's Own Injectable) 30 unit SC HS [facility] Last Admin: 03/21/18 21:44 Dose: 30 unit Home Med (Patient's Own Injectable) 40 unit SC QAM [facility] Last Admin: 03/22/18 10:38 Dose: 40 unit Home Med (Patient's Own Medication) 1 tab PO DAILY [facility] Last Admin: 03/22/18 10:42 Dose: 1 tab Piperacillin Sod/Tazobactam Sod (Zosyn 3.375 Gm Iv Premix) 3.375 gm in 50 mls @ 100 mls/hr IVPB Q6H [facility] PRN Reason: Protocol Last Admin: 03/22/18 11:52 Dose: 100 mls/hr Sodium Chloride (Sodium Chloride 0.9%) 1,000 mls @ 100 mls/hr IV .Q10H [facility] Last Admin: 03/22/18 13:37 Dose: Not Given Insulin Aspart (Novolog) 0 unit SC ACHS [facility] PRN Reason: Protocol Last Admin: 03/22/18 11:52 Dose: 1 unit Methadone HCl (Methadose) 120 mg PO DAILY [facility] Last Admin: 03/22/18 10:36 Dose: 120 mg Mupirocin (Bactroban Ointment) 0 gm TOP DAILY [facility] Last Admin: 03/21/18 09:34 Dose: 1 applic Results - Vital Signs Recent Vital Signs: Last Vital Signs Temp 98.6 F 03/22/18 07:58 Pulse 96 H 03/22/18 07:58 Resp 18 03/22/18 07:58 BP 126/75 03/22/18 07:58 Pulse Ox 95 03/22/18 07:58 - Labs Result Diagrams: 03/22/18 08:03 03/22/18 08:03 Labs: Laboratory Results - last 24 hr 03/21/18 03/21/18 03/21/18 21:26 21:31 21:31 WBC RBC Hgb Hct MCV MCH MCHC RDW Plt Count MPV Sodium Potassium Chloride Carbon Dioxide Anion Gap BUN Creatinine Est GFR ( Amer) Est GFR (Non-Af Amer) POC Glucose (mg/dL) 229 H Random Glucose Calcium Urine Color Yellow Urine Clarity Clear Urine pH 6.0 Ur Specific [place] 1.015 Urine Protein Negative Urine Glucose (UA) Normal Urine Ketones Negative Urine Blood Negative Urine Nitrate Negative Urine Bilirubin Negative Urine Urobilinogen 4.0 H Ur Leukocyte Esterase Negative Urine WBC (Auto) 1 Urine RBC (Auto) 1 Ur Squamous Epith Cells 1 Urine Eosinophils Negative Ur Random Sodium 03/22/18 03/22/18 03/22/18 07:30 08:03 08:03 WBC 7.4 RBC 4.08 Hgb 8.5 L Hct 28.2 L MCV 69.3 L MCH 20.8 L MCHC 30.0 L RDW 20.2 H Plt Count 198 MPV 9.4 Sodium 140 Potassium 4.0 Chloride 100 Carbon Dioxide 31 H Anion Gap 14 BUN 52 H Creatinine 2.3 H Est GFR ( Amer) 26 Est GFR (Non-Af Amer) 22 POC Glucose (mg/dL) 90 Random Glucose 91 Calcium 7.6 L Urine Color Urine Clarity Urine pH Ur Specific [place] Urine Protein Urine Glucose (UA) Urine Ketones Urine Blood Urine Nitrate Urine Bilirubin Urine Urobilinogen Ur Leukocyte Esterase Urine WBC (Auto) Urine RBC (Auto) Ur Squamous Epith Cells Urine Eosinophils Ur Random Sodium 03/22/18 03/22/18 03/22/18 11:18 14:16 16:39 WBC RBC Hgb Hct MCV MCH MCHC RDW Plt Count MPV Sodium Potassium Chloride Carbon Dioxide Anion Gap BUN Creatinine Est GFR ( Amer) Est GFR (Non-Af Amer) POC Glucose (mg/dL) 156 H 183 H Random Glucose Calcium Urine Color Urine Clarity Urine pH Ur Specific [place] Urine Protein Urine Glucose (UA) Urine Ketones Urine Blood Urine Nitrate Urine Bilirubin Urine Urobilinogen Ur Leukocyte Esterase Urine WBC (Auto) Urine RBC (Auto) Ur Squamous Epith Cells Urine Eosinophils Ur Random Sodium 79
[2018-03-22] MEDS: Sodium Chloride 0.45% 1,000 ML IV SCH (21:00)
[2018-03-22 23:14] VITALS: RESP 20
--- NOTE | 2018-03-22 23:21 | CP.PCM.PN ---
Subjective - Date & Time of Evaluation Date of Evaluation: 03/22/18 Time of Evaluation: 19:40 - Subjective Subjective: Pt seen and examined at bedside Objective - Vital Signs/Intake and Output Vital Signs (last 24 hours): Temp Pulse Resp BP Pulse Ox 98.2 F 90 20 105/60 96 03/22/18 23:11 03/22/18 23:11 03/22/18 23:11 03/22/18 23:11 03/22/18 23:11 Intake and Output: 03/22/18 03/23/18 18:59 06:59 Intake Total 1550 800 Balance 1550 800 - Medications Medications: Current Medications Albuterol/Ipratropium (Duoneb 3 Mg/0.5 Mg (3 Ml) Ud) 3 ml INH RQ6 [facility] Last Admin: 03/22/18 19:21 Dose: 3 ml Aspirin (Aspirin Chewable) 81 mg PO DAILY [facility] Last Admin: 03/22/18 10:38 Dose: 81 mg Enoxaparin Sodium (Lovenox) 40 mg SC DAILY [facility] Last Admin: 03/22/18 10:37 Dose: 40 mg Famotidine (Pepcid) 40 mg PO DAILY [facility] Last Admin: 03/22/18 10:38 Dose: 40 mg Ferric Sodium Gluconate Complex (Ferrlecit) 125 mg IVPB DAILY [facility] Stop: 03/27/18 13:16 Last Admin: 03/22/18 10:38 Dose: 125 mg Home Med (Patient's Own Injectable) 30 unit SC HS [facility] Last Admin: 03/22/18 21:50 Dose: 30 unit Home Med (Patient's Own Injectable) 40 unit SC QAM [facility] Last Admin: 03/22/18 10:38 Dose: 40 unit Home Med (Patient's Own Medication) 1 tab PO DAILY [facility] Last Admin: 03/22/18 10:42 Dose: 1 tab Piperacillin Sod/Tazobactam Sod (Zosyn 3.375 Gm Iv Premix) 3.375 gm in 50 mls @ 100 mls/hr IVPB Q6H [facility] PRN Reason: Protocol Last Admin: 03/22/18 17:33 Dose: 100 mls/hr Sodium Chloride (Sodium Chloride 0.45%) 1,000 mls @ 70 mls/hr IV .[id number] [facility] Last Admin: 03/22/18 21:00 Dose: 70 mls/hr Insulin Aspart (Novolog) 0 unit SC ACHS [facility] PRN Reason: Protocol Last Admin: 03/22/18 22:09 Dose: Not Given Methadone HCl (Methadose) 120 mg PO DAILY [facility] Last Admin: 03/22/18 10:36 Dose: 120 mg Mupirocin (Bactroban Ointment) 0 gm TOP DAILY [facility] Last Admin: 03/21/18 09:34 Dose: 1 applic - Labs Labs: 03/22/18 08:03 03/22/18 08:03 PT 11.3 SECONDS (9.7-12.2) 03/18/18 13:11 INR 1.0 03/18/18 13:11 APTT 24 SECONDS (21-34) 03/18/18 13:11 Assessment and Plan (1) Cellulitis Status: Acute (2) Type 1 diabetes mellitus with diabetic nephropathy Status: Acute (3) COPD (chronic obstructive pulmonary disease) Status: Chronic (4) HTN (hypertension) Status: Chronic
[2018-03-23] MEDS: Albuterol-Ipratrop 3 mg / 0.5 (3 ml) UD INH SCH ×4 (01:49→20:01)
[2018-03-23] MEDS: Piperacill/Tazo 3.375gm in Dex 3.375 GM/50 ML BAG IVPB SCH ×4 (05:25→17:29)
--- NOTE | 2018-03-23 06:25 | CON ---
DATE: 03/22/2018 The patient is located in room 361, bed B. Requested by Dr. Fernando Godinez. REASON FOR RENAL CONSULTATION: Acute renal failure and for further evaluation. Mrs. Collins is a 57-year-old middle-aged obese female with a past medical history significant for longstanding hypertension, diabetes, hyperlipidemia, history of TIA x2, who was admitted with chief complaints of pain in right leg and cramps and also felt like a knot in the right leg, and the patient was admitted to rule out PE and DVT. The patient underwent CT scan with contrast on admission and initial serum creatinine was 0.9 and now serum creatinine got worse to 2.3 and renal consult is requested for further evaluation. The patient denies any chest pain or palpitation at this time. Denies any nausea, vomiting, diarrhea. Denies any abdominal pain. No dysuria or frequency. PAST MEDICAL HISTORY: Significant for longstanding hypertension, diabetes, hyperlipidemia, and TIA x2. PAST SURGICAL HISTORY x1. ALLERGIES: ALLERGIC TO CLINDAMYCIN. SOCIAL HISTORY: The patient is a smoker, smokes one to one and a half pack since age 14 and quit about 3 months ago. Denies alcohol abuse. 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 PERSONAL HISTORY: The patient is single and she has three children. FAMILY HISTORY: Not significant. Both parents . She has seven brothers and three alive and other brothers are . She also has three children. REVIEW OF SYSTEMS: Significant for right leg pain and swelling of the leg. All other review of systems are reviewed and are negative. VITAL SIGNS: Blood pressure of 126/75, pulse 96, respirations 18, temperature 98.6, saturation 95%. Height 5 feet 1-1/2 inch and weight is 240 pounds. CURRENT MEDICATIONS: Include aspirin 81 mg daily, Bactroban ointment topical, DuoNeb inhaler, and Ferrlecit 125 mg IV daily, Lovenox 40 mg subcu daily, methadone 120 mg p.o. daily, NovoLog per sliding scale, Pepcid 40 mg p.o. daily, IV fluids normal saline at 100 mL/hour, and Zosyn 3.375 gm every 6 hours, and also insulin. PHYSICAL EXAMINATION: HEENT: Pupils normal, reactive to light and accommodation. Conjunctivae slightly pale. Sclerae anicteric. Tongue is moist. Trachea is midline. LUNGS: Symmetric on both sides. Bilateral breath sounds present. Clear to auscultation. CVS: [place] at the fifth intercostal space, midclavicular line. S1 and S2 audible. No murmur or gallop. ABDOMEN: Normal in appearance, soft, tympanic. No guarding. No hepatosplenomegaly. DOWNSTAIRS MAID: The patient is alert, awake, oriented x3. Nonfocal neuro examination. Cranial nerves II-XII grossly intact. Sensory and motor systems are within normal limits. EXTREMITIES: No cyanosis, no clubbing. The patient has swelling of the both lower extremities. 1+ edema. The patient also has a scar on the left lower extremity from the previous ulcer. LABORATORY DATA: Include as follows: As of 03/14/2018: WBC is 7.4, hemoglobin 8.5, hematocrit is 28.2, MCV is 69.3, and platelets 198. Sodium 140, potassium is 4, chloride 100, CO2 is 31, BUN 52, creatinine 2.3, glucose 156, and calcium 7.6. Accu-Cheks 183. As of 03/21/2018 urinalysis: Yellow, clear, pH 6, specific gravity 1.015, protein negative, glucose normal, ketones negative, blood negative, nitrites negative, bilirubin negative, urobilinogen 4+, leukocyte esterase negative, wbc 1, rbc 1, urine for eosinophils are negative, and urine sodium is 79. As of 03/21/2018, WBC 9.2, hemoglobin 8.8, hematocrit is 29, platelets 208, MCV 69. Sodium 141, potassium 4.2, chloride 98, CO2 of 32, BUN 47, creatinine 2.5, glucose 68, calcium 7.7. As of 03/20/2018, BUN and creatinine 33/1.3. As of 03/18/2018, sodium 140, potassium 4.3, chloride 97, CO2 is 37, BUN 23, creatinine 0.9, glucose 156, calcium 8.5, iron is 18, TIBC is 386, and saturation is 5%. Other reports as of 03/22/2018, ultrasound of the kidneys: Right kidney measures 9.8 x 4.4 x 4.7 cm and the left kidney measures 12.2 x 6.2 x 5.1 cm, normal size, contour, and overall echogenicity. No definite stones. In summary, Mrs. Collins is a 57-year-old middle-aged, obese female with a history of hypertension, diabetes, hyperlipidemia, and TIA, was admitted with right leg pain and underwent CT scan of the chest with contrast on 03/18/2018 and subsequently the patient was found to have a worsening renal function during this admission. CAT scan impression was no evidence of pulmonary embolism, mild mediastinal and right hilar lymphadenopathy, nonspecific, and no pulmonary infiltrate or pleural effusion. 1. Nonoliguric acute renal failure most likely secondary to contrast-induced nephropathy. 2. Hypertension. 3. Diabetes. 4. Anemia secondary to iron-deficiency anemia and treated with Ferrlecit and also continue IV fluids. Consider to change it to half normal saline at 100 mL/hour. We will continue to monitor, renal function is slowly improving. We will follow with you. Thank you for allowing me to participate in your patient's care. We will avoid nephrotoxic agents at this time. Repeat BMP in a.m. Cal Llanos MD
[2018-03-23] MEDS ORDERED: MethylPREDNISolone 40 mg Vial IVP STA (06:50)
[2018-03-23] MEDS ORDERED: DiphenhydrAMINE 50 mg/ml Inj IVP STA (06:50)
[2018-03-23] MEDS: (Novolog) Insulin Aspart, Recombinant 100 u/ml 10 ml vial SC SCH ×4 (07:46→22:53)
[2018-03-23 08:35] LABS: CALCIUM 7.8 mg/dl (8.6-10.4)
[2018-03-23] MEDS: Ferric Sodium Gluconat Complex 62.5 mg/5 ml Vial IVPB SCH (10:21)
[2018-03-23] MEDS: Enoxaparin 40 mg Syringe SC SCH (10:21)
[2018-03-23] MEDS: Methadone 40 mg Tab PO SCH (10:21)
[2018-03-23] MEDS: METFORMIN PO SCH (10:21)
[2018-03-23] MEDS: ALOGLIPTIN PO SCH (10:21)
[2018-03-23] MEDS: HUMALOG 75/25 SC SCH ×2 (10:22→21:53)
[2018-03-23] MEDS: Sodium Chloride 0.45% 1,000 ML IV SCH (10:30)
--- NOTE | 2018-03-23 11:15 | CP.PCM.PN ---
Subjective - Date & Time of Evaluation Date of Evaluation: 03/23/18 Time of Evaluation: 11:15 - Subjective Subjective: Podiatry Progress Note - Dr. Huynh 57 year old female patient seen and evaluated this AM for resolved wounds to bilateral LE. No acute events overnight. Patient complains of generalized swelling and swollen lips following eating. Denies any pain to her legs today. She denies any n/v/f/c/sob/cp. Objective - Vital Signs/Intake and Output Vital Signs (last 24 hours): Temp Pulse Resp BP Pulse Ox 98.5 F 90 20 105/60 96 03/23/18 06:00 03/22/18 23:11 03/22/18 23:11 03/22/18 23:11 03/22/18 23:11 Intake and Output: 03/23/18 03/23/18 06:59 18:59 Intake Total 1890 Output Total 600 Balance 1290 - Medications Medications: Current Medications Albuterol/Ipratropium (Duoneb 3 Mg/0.5 Mg (3 Ml) Ud) 3 ml INH RQ6 [facility] Last Admin: 03/23/18 01:49 Dose: Not Given Aspirin (Aspirin Chewable) 81 mg PO DAILY [facility] [place] Last Admin: 03/23/18 10:21 Dose: 81 mg Enoxaparin Sodium (Lovenox) 40 mg SC DAILY [facility] [place] Last Admin: 03/23/18 10:21 Dose: 40 mg Famotidine (Pepcid) 40 mg PO DAILY [facility] [place] Last Admin: 03/23/18 10:21 Dose: 40 mg Ferric Sodium Gluconate Complex (Ferrlecit) 125 mg IVPB DAILY [facility] [place] Stop: 03/27/18 13:16 Last Admin: 03/23/18 10:21 Dose: 125 mg Home Med (Patient's Own Injectable) 30 unit SC HS [facility] [place] Last Admin: 03/22/18 21:50 Dose: 30 unit Home Med (Patient's Own Injectable) 40 unit SC QAM [facility] [place] Last Admin: 03/23/18 10:22 Dose: 40 unit Home Med (Patient's Own Medication) 1 tab PO DAILY [facility] [place] Last Admin: 03/23/18 10:21 Dose: 1 tab Piperacillin Sod/Tazobactam Sod (Zosyn 3.375 Gm Iv Premix) 3.375 gm in 50 mls @ 100 mls/hr IVPB Q6H [facility] [place] PRN Reason: Protocol Last Admin: 03/23/18 05:25 Dose: 100 mls/hr Sodium Chloride (Sodium Chloride 0.45%) 1,000 mls @ 70 mls/hr IV .[id number] [facility] [place] Last Admin: 03/23/18 10:30 Dose: Not Given Insulin Aspart (Novolog) 0 unit SC ACHS [facility] PRN Reason: Protocol Last Admin: 03/23/18 07:46 Dose: Not Given Methadone HCl (Methadose) 120 mg PO DAILY [facility] [place] Last Admin: 03/23/18 10:21 Dose: 120 mg Mupirocin (Bactroban Ointment) 0 gm TOP DAILY [facility] [place] Last Admin: 03/23/18 10:41 Dose: 1 applic - Labs Labs: 03/22/18 08:03 03/23/18 08:01 PT 11.3 SECONDS (9.7-12.2) 03/18/18 13:11 INR 1.0 03/18/18 13:11 APTT 24 SECONDS (21-34) 03/18/18 13:11 - Constitutional Appears: Well, Non-toxic, No Acute Distress - Extremities Exam Additional comments: VASC: DP and PT pulses are palpable b/l, Temperature gradient WNL, DISK RECOATER <3 seconds to all digits, no edema noted DERM: No open lesions noted to b/l LE. Healed ulceration site noted to distal left leg and proximal anterior right leg. NEURO: gross sensation diminished bilaterally ORTHO: No pain on palpation to resolved ulcerations. Muscle strength 5/5 for all dorsiflexors, plantarflexors, inverters, and everters b/l. - Neurological Exam Neurological Exam: Alert, Awake, Oriented x3 - Psychiatric Exam Psychiatric exam: Normal Affect, Normal Mood Assessment and Plan - Assessment and Plan (Free Text) Assessment: 57 year old female with bilateral lower extremity wounds, resolved Plan: Patient seen and evaluated Discussed with attending Dr. Huynh Afebrile Venous duplex impressions: no evidence of deep or superficial vein thrombrosis of the right lower extremity with excellent venous flow, normal valve function noted of the right side. Normal venous flow noted in the left common femoral vein Bactroban to be applied to healed ulcerations Patient to follow up with Dr. Huynh as an outpatient Will continue to follow
--- NOTE | 2018-03-23 12:18 | CP.PCM.PN ---
Subjective - Date & Time of Evaluation Date of Evaluation: 03/23/18 Time of Evaluation: 12:17 - Subjective Subjective: pt is seen and examined, follow up consult is dictated #[id number] will add lasix 40 qd, d/c ivf Objective - Vital Signs/Intake and Output Vital Signs (last 24 hours): Temp Pulse Resp BP Pulse Ox 98.5 F 90 20 105/60 96 03/23/18 06:00 03/22/18 23:11 03/22/18 23:11 03/22/18 23:11 03/22/18 23:11 Intake and Output: 03/23/18 03/23/18 06:59 18:59 Intake Total 1890 Output Total 600 Balance 1290 - Medications Medications: Current Medications Albuterol/Ipratropium (Duoneb 3 Mg/0.5 Mg (3 Ml) Ud) 3 ml INH RQ6 [facility] Last Admin: 03/23/18 01:49 Dose: Not Given Aspirin (Aspirin Chewable) 81 mg PO DAILY [facility] Last Admin: 03/23/18 10:21 Dose: 81 mg Enoxaparin Sodium (Lovenox) 40 mg SC DAILY [facility] Last Admin: 03/23/18 10:21 Dose: 40 mg Famotidine (Pepcid) 40 mg PO DAILY [facility] Last Admin: 03/23/18 10:21 Dose: 40 mg Ferric Sodium Gluconate Complex (Ferrlecit) 125 mg IVPB DAILY [facility] Stop: 03/27/18 13:16 Last Admin: 03/23/18 10:21 Dose: 125 mg Home Med (Patient's Own Injectable) 30 unit SC HS [facility] Last Admin: 03/22/18 21:50 Dose: 30 unit Home Med (Patient's Own Injectable) 40 unit SC QAM [facility] Last Admin: 03/23/18 10:22 Dose: 40 unit Home Med (Patient's Own Medication) 1 tab PO DAILY [facility] Last Admin: 03/23/18 10:21 Dose: 1 tab Piperacillin Sod/Tazobactam Sod (Zosyn 3.375 Gm Iv Premix) 3.375 gm in 50 mls @ 100 mls/hr IVPB Q6H [facility] PRN Reason: Protocol Last Admin: 03/23/18 12:07 Dose: 100 mls/hr Sodium Chloride (Sodium Chloride 0.45%) 1,000 mls @ 70 mls/hr IV .[id number] [facility] Last Admin: 03/23/18 10:30 Dose: Not Given Insulin Aspart (Novolog) 0 unit SC ACHS [facility] PRN Reason: Protocol Last Admin: 03/23/18 12:07 Dose: 3 unit Methadone HCl (Methadose) 120 mg PO DAILY [facility] Last Admin: 03/23/18 10:21 Dose: 120 mg Mupirocin (Bactroban Ointment) 0 gm TOP DAILY [facility] Last Admin: 03/23/18 10:41 Dose: 1 applic - Labs Labs: 03/22/18 08:03 03/23/18 08:01 PT 11.3 SECONDS (9.7-12.2) 03/18/18 13:11 INR 1.0 03/18/18 13:11 APTT 24 SECONDS (21-34) 03/18/18 13:11
--- NOTE | 2018-03-23 14:57 | CP.PCM.PN ---
Subjective - Date & Time of Evaluation Date of Evaluation: 03/23/18 Time of Evaluation: 14:50 - Subjective Subjective: Patient reporting swollen lip following eating lunch including pineapple which she has tolerate in the past. Patient reports she is breathing well. Talking and conversing. No known allergies to food that she knows of. She was advised to stop eating the mary donuts. Ordered for stat dose of Solumedrol 40mg IVP, Benadryl 25mg IVX1, Pepcid 20mg IVPX1. Objective - Vital Signs/Intake and Output Vital Signs (last 24 hours): Temp Pulse Resp BP Pulse Ox 98.5 F 90 20 131/84 96 03/23/18 06:00 03/22/18 23:11 03/22/18 23:11 03/23/18 12:59 03/22/18 23:11 Intake and Output: 03/23/18 03/23/18 06:59 18:59 Intake Total 1890 Output Total 600 Balance 1290 - Medications Medications: Current Medications Albuterol/Ipratropium (Duoneb 3 Mg/0.5 Mg (3 Ml) Ud) 3 ml INH RQ6 [facility] Last Admin: 03/23/18 13:01 Dose: 3 ml Aspirin (Aspirin Chewable) 81 mg PO DAILY [facility] Last Admin: 03/23/18 10:21 Dose: 81 mg Diphenhydramine HCl (Benadryl) 25 mg PO STAT [facility] Stop: 03/23/18 14:51 Enoxaparin Sodium (Lovenox) 40 mg SC DAILY [facility] Last Admin: 03/23/18 10:21 Dose: 40 mg Famotidine (Pepcid) 40 mg PO DAILY [facility] Last Admin: 03/23/18 10:21 Dose: 40 mg Famotidine (Pepcid) 20 mg IVP STAT [facility] Stop: 03/23/18 14:54 Ferric Sodium Gluconate Complex (Ferrlecit) 125 mg IVPB DAILY [facility] Stop: 03/27/18 13:16 Last Admin: 03/23/18 10:21 Dose: 125 mg Furosemide (Lasix) 40 mg PO DAILY [facility] Last Admin: 03/23/18 12:59 Dose: 40 mg Home Med (Patient's Own Injectable) 30 unit SC HS [facility] Last Admin: 03/22/18 21:50 Dose: 30 unit Home Med (Patient's Own Injectable) 40 unit SC QAM [facility] Last Admin: 03/23/18 10:22 Dose: 40 unit Home Med (Patient's Own Medication) 1 tab PO DAILY [facility] Last Admin: 03/23/18 10:21 Dose: 1 tab Piperacillin Sod/Tazobactam Sod (Zosyn 3.375 Gm Iv Premix) 3.375 gm in 50 mls @ 100 mls/hr IVPB Q6H [facility] PRN Reason: Protocol Last Admin: 03/23/18 12:07 Dose: 100 mls/hr Insulin Aspart (Novolog) 0 unit SC ACHS [facility] PRN Reason: Protocol Last Admin: 03/23/18 12:07 Dose: 3 unit Methadone HCl (Methadose) 120 mg PO DAILY [facility] Last Admin: 03/23/18 10:21 Dose: 120 mg Methylprednisolone (Solu-Medrol) 40 mg IVP STAT [facility] Stop: 03/23/18 14:54 Mupirocin (Bactroban Ointment) 0 gm TOP DAILY [facility] Last Admin: 03/23/18 10:41 Dose: 1 applic - Labs Labs: 03/22/18 08:03 03/23/18 08:01 PT 11.3 SECONDS (9.7-12.2) 03/18/18 13:11 INR 1.0 03/18/18 13:11 APTT 24 SECONDS (21-34) 03/18/18 13:11
[2018-03-23] MEDS ORDERED: MethylPREDNISolone 40 mg Vial IVP ONE (15:00)
[2018-03-23] MEDS ORDERED: DiphenhydrAMINE 50 mg/ml Inj IVP ONE (15:00)
[2018-03-23 20:12] LABS: CREATININE, RANDOM URINE 52.3 mg/dL
--- NOTE | 2018-03-23 23:26 | CP.PCM.PN ---
Subjective - Date & Time of Evaluation Date of Evaluation: 03/23/18 Time of Evaluation: 19:00 - Subjective Subjective: Pt sen and evaluated, no chest pain, sob, nausea, vomiting, denies any fever, chills Objective - Vital Signs/Intake and Output Vital Signs (last 24 hours): Temp Pulse Resp BP Pulse Ox 98.1 F 84 20 123/69 99 03/23/18 16:00 03/23/18 16:00 03/23/18 16:00 03/23/18 16:00 03/23/18 16:00 Intake and Output: 03/23/18 03/24/18 18:59 06:59 Intake Total 770 Balance 770 - Medications Medications: Current Medications Albuterol/Ipratropium (Duoneb 3 Mg/0.5 Mg (3 Ml) Ud) 3 ml INH RQ6 [facility] Last Admin: 03/23/18 20:01 Dose: 3 ml Aspirin (Aspirin Chewable) 81 mg PO DAILY [facility] Last Admin: 03/23/18 10:21 Dose: 81 mg Enoxaparin Sodium (Lovenox) 40 mg SC DAILY [facility] Last Admin: 03/23/18 10:21 Dose: 40 mg Famotidine (Pepcid) 40 mg PO DAILY [facility] Last Admin: 03/23/18 10:21 Dose: 40 mg Ferric Sodium Gluconate Complex (Ferrlecit) 125 mg IVPB DAILY [facility] Stop: 03/27/18 13:16 Last Admin: 03/23/18 10:21 Dose: 125 mg Furosemide (Lasix) 40 mg PO DAILY [facility] Last Admin: 03/23/18 12:59 Dose: 40 mg Home Med (Patient's Own Injectable) 30 unit SC HS [facility] Last Admin: 03/23/18 21:53 Dose: 30 unit Home Med (Patient's Own Injectable) 40 unit SC QAM [facility] Last Admin: 03/23/18 10:22 Dose: 40 unit Home Med (Patient's Own Medication) 1 tab PO DAILY [facility] Last Admin: 03/23/18 10:21 Dose: 1 tab Piperacillin Sod/Tazobactam Sod (Zosyn 3.375 Gm Iv Premix) 3.375 gm in 50 mls @ 100 mls/hr IVPB Q6H [facility] PRN Reason: Protocol Last Admin: 03/23/18 17:29 Dose: 100 mls/hr Insulin Aspart (Novolog) 0 unit SC ACHS [facility] PRN Reason: Protocol Last Admin: 03/23/18 22:53 Dose: Not Given Methadone HCl (Methadose) 120 mg PO DAILY [facility] Last Admin: 03/23/18 10:21 Dose: 120 mg Mupirocin (Bactroban Ointment) 0 gm TOP DAILY [facility] Last Admin: 03/23/18 10:41 Dose: 1 applic - Labs Labs: 03/22/18 08:03 03/23/18 08:01 PT 11.3 SECONDS (9.7-12.2) 03/18/18 13:11 INR 1.0 03/18/18 13:11 APTT 24 SECONDS (21-34) 03/18/18 13:11 Assessment and Plan (1) Cellulitis Status: Acute (2) Type 1 diabetes mellitus with diabetic nephropathy Status: Acute (3) COPD (chronic obstructive pulmonary disease) Status: Chronic (4) HTN (hypertension) Status: Chronic
[2018-03-24] MEDS: Piperacill/Tazo 3.375gm in Dex 3.375 GM/50 ML BAG IVPB SCH ×3 (00:20→11:22)
[2018-03-24] MEDS: Albuterol-Ipratrop 3 mg / 0.5 (3 ml) UD INH SCH ×2 (02:42→07:26)
[2018-03-24 07:21] LABS: CALCIUM 8.6 mg/dl (8.6-10.4)
[2018-03-24] MEDS: (Novolog) Insulin Aspart, Recombinant 100 u/ml 10 ml vial SC SCH ×2 (07:47→11:37)
--- NOTE | 2018-03-24 09:32 | PN ---
DATE: 03/23/2018 FOLLOWUP RENAL CONSULTATION REQUESTED BY: Dr. Fernando Godinez. REASON FOR FOLLOWUP: Acute renal failure. HISTORY OF PRESENT ILLNESS: Mrs. Collins is a 57 years old elderly obese female with a past medical history significant for longstanding hypertension, diabetes, hyperlipidemia, history of drug abuse or methadone was admitted with chief complaints of pain in the right leg and felt like a knot and the patient underwent CT of the chest with contrast to rule out PE, which was negative and subsequently the patient was noticed worsening of the renal function since admission. The patient is not in acute distress and complains of swelling of the legs and swelling of the face and abdomen with IV fluids. No shortness of breath. PHYSICAL EXAMINATION: VITAL SIGNS: Blood pressure 131/84, pulse 84, respirations 20, temperature 98.5 saturation 95%, height 5 feet 1-1/2 inches and weight is 240 pounds. GENERAL: Mrs. Collins is a 57 years old obese female, not in distress. HEENT: Pupils normal, react to light and accommodation. Conjunctivae pink. Sclerae anicteric. Tongue is moist and trachea is midline. LUNGS: Symmetric on both sides. Bilateral breath sounds present. Clear to auscultation. CVS: J[place] at the fifth intercostal space, midclavicular line. S1 and S2 audible. No murmur or gallop. ABDOMEN: Normal in appearance, soft, tympanic. No guarding, no rigidity. No hepatosplenomegaly. POWER LINE INSTALLER AND REPAIRER: The patient is alert, awake, oriented x3. Nonfocal neuro examination. EXTREMITIES: No cyanosis, no clubbing. The patient has chronic leg swelling 1-2+ edema present. CURRENT MEDICATIONS: Aspirin 81 mg daily, Bactroban ointment topical, DuoNeb inhaler, Ferrlecit 125 mg IV daily, Lasix 40 mg p.o. daily, Lovenox 40 mg subcu daily, methadone 120 mg p.o. daily, insulin, Pepcid 40 mg daily, Zosyn 3.375 gm IV every 6 hours. LABORATORY DATA: As of 03/23/2018; sodium 142, potassium 4.5, chloride 101, CO2 31, BUN 36, creatinine 1.6, glucose 109 and calcium 7.8. Urine sodium , potassium is 28.1. Urine eosinophils are negative. ASSESSMENT: In summary, Mrs. Collins is a 57 years old obese female with hypertension, diabetes, hyperlipidemia and methadone was admitted with right leg pain and status post CT scan with contrast and subsequently her creatinine found to have been worsening since admission from 0.92 to 2.5 and serum creatinine slowly improving now with edema. 1. Nonoliguric acute renal failure, most likely secondary to acute tubular necrosis secondary to contrast induced nephropathy. 2. Hypertension. 3. Diabetes. PLAN: DC IV fluids and we will add Lasix 40 mg p.o. daily first dose now. We will follow BMP in a.m. Thank you for allowing me to participate in your patient's care. Cal Llanos MD
[2018-03-24] MEDS: Enoxaparin 40 mg Syringe SC SCH (09:53)
[2018-03-24] MEDS: METFORMIN PO SCH (09:54)
[2018-03-24] MEDS: HUMALOG 75/25 SC SCH ×2 (09:54→10:12)
[2018-03-24] MEDS: ALOGLIPTIN PO SCH (09:54)
[2018-03-24] MEDS: Ferric Sodium Gluconat Complex 62.5 mg/5 ml Vial IVPB SCH (09:55)
[2018-03-24] MEDS: Methadone 40 mg Tab PO SCH (10:01)
--- NOTE | 2018-03-24 12:24 | CP.PCM.PN ---
Subjective - Date & Time of Evaluation Date of Evaluation: 03/24/18 Time of Evaluation: 12:23 - Subjective Subjective: pt is seen and examined, follow up consult is dictated #[id number] Objective - Vital Signs/Intake and Output Vital Signs (last 24 hours): Temp Pulse Resp BP Pulse Ox 97.8 F 84 20 142/88 99 03/24/18 00:00 03/24/18 00:00 03/24/18 00:00 03/24/18 09:53 03/24/18 00:00 Intake and Output: 03/24/18 03/24/18 06:59 18:59 Intake Total 1170 Balance 1170 - Medications Medications: Current Medications Albuterol/Ipratropium (Duoneb 3 Mg/0.5 Mg (3 Ml) Ud) 3 ml INH RQ6 [facility] Last Admin: 03/24/18 07:26 Dose: 3 ml Aspirin (Aspirin Chewable) 81 mg PO DAILY [facility] Last Admin: 03/24/18 09:53 Dose: 81 mg Enoxaparin Sodium (Lovenox) 40 mg SC DAILY [facility] Last Admin: 03/24/18 09:53 Dose: 40 mg Famotidine (Pepcid) 40 mg PO DAILY [facility] Last Admin: 03/24/18 09:53 Dose: 40 mg Ferric Sodium Gluconate Complex (Ferrlecit) 125 mg IVPB DAILY [facility] Stop: 03/27/18 13:16 Last Admin: 03/24/18 09:55 Dose: Not Given Furosemide (Lasix) 40 mg PO DAILY [facility] Last Admin: 03/24/18 09:53 Dose: 40 mg Home Med (Patient's Own Injectable) 30 unit SC HS [facility] Last Admin: 03/23/18 21:53 Dose: 30 unit Home Med (Patient's Own Injectable) 40 unit SC QAM [facility] Last Admin: 03/24/18 10:12 Dose: Not Given Home Med (Patient's Own Medication) 1 tab PO DAILY [facility] Last Admin: 03/24/18 09:54 Dose: 1 tab Piperacillin Sod/Tazobactam Sod (Zosyn 3.375 Gm Iv Premix) 3.375 gm in 50 mls @ 100 mls/hr IVPB Q6H [facility] PRN Reason: Protocol Last Admin: 03/24/18 11:22 Dose: Not Given Insulin Aspart (Novolog) 0 unit SC ACHS [facility] PRN Reason: Protocol Last Admin: 03/24/18 11:37 Dose: 1 unit Methadone HCl (Methadose) 120 mg PO DAILY [facility] Last Admin: 03/24/18 10:01 Dose: 120 mg Mupirocin (Bactroban Ointment) 0 gm TOP DAILY [facility] Last Admin: 03/24/18 09:55 Dose: 1 applic - Labs Labs: 03/22/18 08:03 03/24/18 06:42 PT 11.3 SECONDS (9.7-12.2) 03/18/18 13:11 INR 1.0 03/18/18 13:11 APTT 24 SECONDS (21-34) 03/18/18 13:11
[2018-03-24 16:41] VITALS: BP 164/84; PULSE 97; TEMP 98.3; O2SAT 92
--- NOTE | 2018-03-24 17:38 | CP.PCM.PN ---
Subjective - Date & Time of Evaluation Date of Evaluation: 03/24/18 Time of Evaluation: 11:00 - Subjective Subjective: Alert, awake, denies any pain or distress. Objective - Vital Signs/Intake and Output Vital Signs (last 24 hours): Temp Pulse Resp BP Pulse Ox 98.3 F 97 H 20 164/84 H 92 L 03/24/18 16:00 03/24/18 16:00 03/24/18 16:00 03/24/18 16:00 03/24/18 16:00 Intake and Output: 03/24/18 03/24/18 06:59 18:59 Intake Total 1170 Balance 1170 - Labs Labs: 03/22/18 08:03 03/24/18 06:42 PT 11.3 SECONDS (9.7-12.2) 03/18/18 13:11 INR 1.0 03/18/18 13:11 APTT 24 SECONDS (21-34) 03/18/18 13:11 Assessment and Plan - Assessment and Plan (Free Text) Assessment: Patient admitted with anemia, COPD, methadone dependence, seen and examined. All cultures are negative, feeling better. Still with some edema on the legs. Discussed with DR Godinez, plan to discharge home today. Advised to follow up in the office in 1 week.
--- NOTE | 2018-03-24 23:13 | CP.PCM.DIS ---
Provider - Provider Date of Admission: 03/18/18 15:00 Attending physician: Fernando Godinez MD Diagnosis - Discharge Diagnosis (1) Cellulitis Status: Acute (2) Type 1 diabetes mellitus with diabetic nephropathy Status: Acute (3) COPD (chronic obstructive pulmonary disease) Status: Chronic Priority: Low (4) HTN (hypertension) Status: Chronic Hospital Course - Lab Results Lab Results: Micro Results 03/22/18 08:00 Urine Urine Culture - Final No Growth (<1,000 CFU/ML) 03/20/18 17:17 Blood-Venous Blood Culture - Preliminary NO GROWTH AFTER 4 DAYS 03/20/18 17:17 Blood-Venous Blood Culture - Preliminary NO GROWTH AFTER 4 DAYS 03/20/18 16:55 Urine Urine Culture - Final No Growth (<1,000 CFU/ML) Most Recent Lab Values WBC 7.4 K/uL (4.8-10.8) 03/22/18 08:03 RBC 4.08 Mil/uL (3.80-5.20) 03/22/18 08:03 Hgb 8.5 g/dL (11.0-16.0) L 03/22/18 08:03 Hct 28.2 % (34.0-47.0) L 03/22/18 08:03 MCV 69.3 fL (81.0-99.0) L 03/22/18 08:03 MCH 20.8 pg (27.0-31.0) L 03/22/18 08:03 MCHC 30.0 g/dL (33.0-37.0) L 03/22/18 08:03 RDW 20.2 % (11.5-14.5) H 03/22/18 08:03 Plt Count 198 K/uL (130-400) 03/22/18 08:03 MPV 9.4 fL (7.2-11.7) 03/22/18 08:03 Neut % (Auto) 82.0 % (50.0-75.0) H 03/21/18 07:08 Lymph % (Auto) 7.8 % (20.0-40.0) L 03/21/18 07:08 [place] % (Auto) 4.3 % (0.0-10.0) 03/21/18 07:08 Eos % (Auto) 5.7 % (0.0-4.0) H 03/21/18 07:08 Baso % (Auto) 0.2 % (0.0-2.0) 03/21/18 07:08 Neut # (Auto) 7.5 K/uL (1.8-7.0) H 03/21/18 07:08 Lymph # (Auto) 0.7 K/uL (1.0-4.3) L 03/21/18 07:08 [place] # (Auto) 0.4 K/uL (0.0-0.8) 03/21/18 07:08 Eos # (Auto) 0.5 K/uL (0.0-0.7) 03/21/18 07:08 Baso # (Auto) 0.0 K/uL (0.0-0.2) 03/21/18 07:08 Neutrophils % (Manual) 76 % (50-75) H 03/21/18 07:08 Band Neutrophils % 5 % (0-2) H 03/21/18 07:08 Lymphocytes % (Manual) 8 % (20-40) L 03/21/18 07:08 Monocytes % (Manual) 6 % (0-10) 03/21/18 07:08 Eosinophils % (Manual) 5 % (0-4) H 03/21/18 07:08 Differential Comment 03/18/18 13:11 Platelet Estimate Normal (NORMAL) 03/21/18 07:08 Hypochromasia (manual) Moderate 03/21/18 07:08 Basophilic Stippling Slight 03/21/18 07:08 Anisocytosis (manual) Moderate 03/21/18 07:08 Microcytosis (manual) Slight 03/21/18 07:08 Target Cells Slight 03/21/18 07:08 PT 11.3 SECONDS (9.7-12.2) 03/18/18 13:11 INR 1.0 03/18/18 13:11 APTT 24 SECONDS (21-34) 03/18/18 13:11 Sodium 143 mmol/L (132-148) 03/24/18 06:42 Potassium 5.2 mmol/L (3.6-5.2) 03/24/18 06:42 Chloride 101 mmol/L (98-107) 03/24/18 06:42 Carbon Dioxide 31 mmol/L (22-30) H 03/24/18 06:42 Anion Gap 15 (10-20) 03/24/18 06:42 BUN 35 mg/dL (7-17) H 03/24/18 06:42 Creatinine 1.3 mg/dL (0.7-1.2) H 03/24/18 06:42 Est GFR ( Amer) 51 03/24/18 06:42 Est GFR (Non-Af Amer) 42 03/24/18 06:42 POC Glucose (mg/dL) 197 mg/dL (65-110) H 03/24/18 11:26 Random Glucose 151 mg/dL (65-105) H 03/24/18 06:42 Calcium 8.6 mg/dl (8.6-10.4) 03/24/18 06:42 Iron 18 ug/dL (37-170) L 03/18/18 07:43 TIBC 386 ug/dL (250-450) 03/18/18 07:43 % Saturation 5 (20-55) L 03/18/18 07:43 Total Bilirubin 0.4 mg/dL (0.2-1.3) 03/18/18 13:11 AST 20 U/L (14-36) 03/18/18 13:11 ALT 12 U/L (9-52) 03/18/18 13:11 Alkaline Phosphatase 142 U/L (38-126) H 03/18/18 13:11 Total Creatine Kinase 102 U/L (30-135) 03/18/18 16:09 Troponin I < 0.0120 ng/mL (0.00-0.120) 03/18/18 13:11 Total Protein 8.4 g/dL (6.3-8.3) H 03/18/18 13:11 Albumin 3.5 g/dL (3.5-5.0) D 03/18/18 13:11 Globulin 4.9 gm/dL (2.2-3.9) H 03/18/18 13:11 Albumin/Globulin Ratio 0.7 (1.0-2.1) L 03/18/18 13:11 Urine Color Yellow (YELLOW) 03/21/18 21:31 Urine Clarity Clear (Clear) 03/21/18 21:31 Urine pH 6.0 (5.0-8.0) 03/21/18 21:31 Ur Specific [place] 1.015 (1.003-1.030) 03/21/18 21:31 Urine Protein Negative mg/dL (NEGATIVE) 03/21/18 21:31 Urine Glucose (UA) Normal mg/dL (Normal) 03/21/18 21:31 Urine Ketones Negative mg/dL (NEGATIVE) 03/21/18 21:31 Urine Blood Negative (NEGATIVE) 03/21/18 21:31 Urine Nitrate Negative (NEGATIVE) 03/21/18 21:31 Urine Bilirubin Negative (NEGATIVE) 03/21/18 21:31 Urine Urobilinogen 4.0 mg/dL (0.2-1.0) H 03/21/18 21:31 Ur Leukocyte Esterase Negative Jean/uL (Negative) 03/21/18 21:31 Urine WBC (Auto) 1 /hpf (0-5) 03/21/18 21:31 Urine RBC (Auto) 1 /hpf (0-3) 03/21/18 21:31 Ur Squamous Epith Cells 1 /hpf (0-5) 03/21/18 21:31 Ur Transition Epith Cell < 1 /hpf (0-3) 03/20/18 16:55 Urine Bacteria Occ (<OCC) H 03/20/18 16:55 Urine Eosinophils Negative (NEGATIVE) 03/21/18 21:31 Urine Osmolality 381 mosm/kg (300-1000) 03/23/18 19:49 Ur Random Creatinine 52.3 mg/dL 03/23/18 19:49 Ur Random Sodium 80 mmol/L 03/23/18 08:41 Ur Random Potassium 28.1 mmol/L 03/23/18 08:41 Blood Type A NEGATIVE 03/18/18 16:41 Antibody Screen Negative 03/18/18 16:41 - Hospital Course Hospital Course: Patient admitted with anemia, COPD, methadone dependence, seen and examined. All cultures are negative, feeling better. Still with some edema on the legs. plan to discharge home today. Advised to follow up in the office in 1 week. Discharge Exam - Head Exam Head Exam: ATRAUMATIC, NORMAL INSPECTION, NORMOCEPHALIC Discharge Plan - Discharge Medications Prescriptions: Ferrous Sulfate 325 mg PO BID 30 Days tablet Furosemide [Lasix] 40 mg PO DAILY #30 tab Polyethylene Glycol 3350 [Miralax] 17 gm PO DAILY 30 Days ml Clotrimazole [Mycelex Li] 10 mg MM QID #30 michelle Famotidine [Pepcid] 40 mg PO DAILY #30 tab - Follow Up Plan Condition: STABLE Disposition: HOME/ ROUTINE Instructions: Dehydration, Adult (DC), Anoxic Brain Damage (DC), Normocytic Normochromic Anemia (DC) Referrals: Fernando Godinez MD [Staff Provider] -
--- NOTE | 2018-03-25 07:23 | PN ---
DATE: 03/24/2018 FOLLOWUP RENAL CONSULTATION LOCATION: Room 361, bed B. REQUESTED BY: Dr. Fernando Godinez. REASON FOR FOLLOWUP: Acute renal failure for further evaluation. HISTORY OF PRESENT ILLNESS: Mrs. Collins is a 57 years old obese female with a past medical history significant for longstanding hypertension, diabetes, hyperlipidemia who was admitted with chief complaints of pain in the right leg and the patient was admitted to rule out DVT status post a CT angiogram with contrast to rule out PE. The patient subsequently developed acute renal failure after contrast administration after 2 days. The patient is feeling much better today, not in distress. No chest pain, no palpitation. No fever. No cough. Complains of swelling of the legs and abdomen which is improving as per the patient since yesterday. Once Lasix was started, the patient is off IV fluids. PHYSICAL EXAMINATION: VITAL SIGNS: This morning as follows; blood pressure 142/88, pulse 84, respirations about 20, temperature 97.8, saturation 99%, height 5 feet 1-1/2 inches and weight is 240 pounds. GENERAL: Mrs. Collins is a 57 years old obese female, not in distress. HEENT: Pupils normal, react to light and accommodation. Conjunctivae pink. Sclerae anicteric. Tongue is moist. Trachea is midline. LUNGS: Symmetric on both sides. Bilateral breath sounds present. Clear to auscultation. CVS: Ethel at the fifth intercostal space, half inch medial to midclavicular line . S1 and S2 audible. No murmur or gallop. ABDOMEN: Normal in appearance, protuberant, soft, tympanic. No guarding, no rigidity. No hepatosplenomegaly. 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 Nonfocal neuro examination. Cranial nerves II through XII grossly intact. Sensory and motor system is within normal limits. EXTREMITIES: No cyanosis, no clubbing. The patient has 1+ edema in both lower extremities. MEDICATIONS: Reviewed; methadone 150 mg p.o. daily, Humalog mix 75/25 KwikPen 33 units subcu at bedtime and also 40 units subcu in the morning, Actos 15 mg p.o. daily, aspirin 81 mg daily, simvastatin with hydrochlorothiazide 300/12.5 mg p.o. daily, and metformin combination 12.03/1000 mg 1 tablet p.o. b.i.d., Lasix 40 mg p.o. daily, Feosol 325 mg p.o. b.i.d., Pepcid 40 mg p.o. daily and Mycelex Li 10 mg q.i.d.. LABORATORY DATA This morning as follows as of 03/24/2018; sodium 143, potassium 5.2, chloride 101, CO2 31, BUN 35, creatinine 1.3, glucose 151, calcium 8.6. ASSESSMENT AND PLAN: In summary, Mrs. Collins is a 57 years old middle-aged obese female with hypertension, diabetes, hyperlipidemia with right leg pain status post CAT scan with contrast to rule out pulmonary embolism and found to have acute renal failure after contrast. 1. Nonoliguric acute renal failure most likely secondary to acute tubular necrosis secondary to contrast induced nephropathy. 2. Hypertension. Blood pressure stable. 3. Diabetes. Sugars are improving. PLAN: Renal function improved from 2.2 creatinine 1.3, almost back to her baseline. The patient can be discharged from the renal standpoint and followup with PMD as an outpatient. Thank you for allowing me to participate in your patient's care. Cal Llanos MD
== END 2018-03-24 17:00 | disposition home or self-care (01) | DRG 563 ==
LOC: C.ER 11:18 → C.9E 15:00 → C.3T 21:53
PROVIDERS: ADMIT Internal Medicine; ATTEND Internal Medicine
DX: L03.115 Cellulitis of right lower limb (principal); N17.0 Acute kidney failure with tubular necrosis; E10.21 Type 1 diabetes mellitus with diabetic nephropathy; F11.20 Opioid dependence, uncomplicated; J44.9 Chronic obstructive pulmonary disease, unspecified; R09.02 Hypoxemia; D50.9 Iron deficiency anemia, unspecified; E86.0 Dehydration; I10 Essential (primary) hypertension; N14.1 Nephropathy induced by other drugs, medicaments and biological substances; T50.8X5A Adverse effect of diagnostic agents, initial encounter; E78.00 Pure hypercholesterolemia, unspecified; E78.5 Hyperlipidemia, unspecified; E66.9 Obesity, unspecified; Z68.41 Body mass index [BMI] 40.0-44.9, adult; Z79.4 Long term (current) use of insulin; Z87.891 Personal history of nicotine dependence; Z86.73 Personal history of transient ischemic attack (TIA), and cerebral infarction without residual deficits; Z99.81 Dependence on supplemental oxygen

== ENCOUNTER 2018-07-11 13:15 | Inpatient (IN) | payer MEDICAID ==
[2018-07-11 13:16] VITALS: BMI 42.7
--- NOTE | 2018-07-11 14:11 | C.PDOC ---
History Of Present Illness 58 y/o F c PMHx DM, COPD on home O2 as needed, opiate abuse on methadone p/w RUQ pain x 1 week. Patient states she was admitted at [facility] for 1 week and discharged 4 days ago after being treated with antibiotics. She states she continues to be coughing and was not discharged with anything. She also reports RUQ pain, sharp, worse with palpation, nonradiating that she had at discharge. Denies fever, vomiting. Time Seen by Provider: 07/11/18 13:55 Chief Complaint (Nursing): Abdominal Pain History Per: Patient History/Exam Limitations: no limitations Onset/Duration Of Symptoms: Days Current Symptoms Are (Timing): Still Present Past Medical History Reviewed: Historical Data, Nursing Documentation, Vital Signs Vital Signs: Last Vital Signs Temp 98.1 F 07/11/18 13:24 Pulse 79 07/11/18 16:18 Resp 18 07/11/18 16:18 BP 158/104 H 07/11/18 16:18 Pulse Ox 92 L 07/11/18 16:18 - Medical History PMH: Anxiety (NO MED), Arthritis, Asthma, Bronchitis, COPD (USE OF BIPAP HOME O2 ), Diabetes, HTN, Hypercholesterolemia, Migraine Denies: Chronic Kidney Disease - [facility] Procedures ASSISTANCE WITH RESPIRATORY VENTILATION, 24-96 HRS, CPAP (11/25/16) ASSISTANCE WITH RESPIRATORY VENTILATION, <24 HRS, CPAP (06/17/17) EXCISION OF L LOW LEG SUBCU/FASCIA, OPEN APPROACH (04/20/17) EXCISION OF LEFT LOWER LEG SKIN, EXTERNAL APPROACH (06/17/17) EXCISION OF LEFT LOWER LEG SKIN, EXTERNAL APPROACH, DIAGN (06/17/17) INSERTION OF INFUSION DEV INTO SUP VENA CAVA, PERC APPROACH (06/17/17) REPLACE L LOW LEG SKIN W NONAUT SUB, FULL THICK, ENERGY DERIVATIVES TRADER (06/17/17) VENOUS CATHETERIZATION NEC (04/07/14) Family History: States: Unknown Family Hx - Social History Hx Tobacco Use: Yes Hx Alcohol Use: No Hx Substance Use: Yes - Immunization History Hx Tetanus Toxoid Vaccination: Yes Hx Influenza Vaccination: Yes Hx Pneumococcal Vaccination: Yes Review Of Systems Except As Marked, All Systems Reviewed And Found Negative. Constitutional: Negative for: Fever Respiratory: Positive for: Cough Gastrointestinal: Positive for: Abdominal Pain. Negative for: Vomiting Physical Exam - Physical Exam Additional Physical Exam Comments: Constitutional: No acute distress. Head: Normocephalic. Atraumatic. Eyes: PERRL. ENT: Moist mucous membranes. Neck: Supple. Cardiovascular: Regular rate. Radial pulse 2+ bilaterally. Chest: No tenderness. Respiratory: Wheezing bilaterally. Pulse oximetry 89% on room air. GI: Soft. Nondistended. RUQ tenderness. Back: No CVA tenderness. Musculoskeletal: No tenderness or swelling of extremities. Skin: No rash. Neurologic: Alert, no focal deficit. ED Course And Treatment - Laboratory Results Result Diagrams: 07/11/18 14:32 07/11/18 14:32 O2 Sat by Pulse Oximetry: 90 (RA) Pulse Ox Interpretation: Abnormal Medical Decision Making Medical Decision Making: IMPRESSION: Findings are most compatible with congestive heart failure. More confluent airspace disease in the right infrahilar region may represent edema or pneumonia. Follow-up after medical management is recommended to ensure complete resolution. FINDINGS: LIVER: Enlarged, measuring 17.8 cm. Normal echogenicity of the liver parenchyma. No mass. No intrahepatic bile duct dilatation. GALLBLADDER: Unremarkable. No gallstones. COMMON BILE DUCT: Measures 7 mm. No stones. No dilatation. PANCREAS: Unremarkable as visualized. No mass. No ductal dilatation. RIGHT KIDNEY: Measures 11.2 x 4.3 x 5.4cm. Normal echogenicity. No calculus, mass, or hydronephrosis. LEFT KIDNEY: Measures 11.5 x 5.3 x 5.4cm. Normal echogenicity. No calculus, mass, or hydronephrosis. SPLEEN: Normal in size and contour. No mass. AORTA: No aneurysmal dilatation. IVC: Unremarkable. OTHER FINDINGS: None. IMPRESSION: Borderline hepatomegaly. Dr. Godinez accepts patient to his service for COPD exacerbation. Disposition Discussed With : Fernando Godinez Doctor Will See Patient In The: Hospital - Disposition Disposition: HOSPITALIZED Disposition Time: 16:00 Condition: FAIR - Clinical Impression Clinical Impression: Hypoxia, COPD exacerbation
[2018-07-11 14:39] LABS: BASO % 0.5 % (0.0-2.0); EOS % 0.3 % (0.0-4.0); LYMPH # 2.2 K/uL (1.0-4.3); LYMPH % 23.9 % (20.0-40.0); MEAN CELL VOLUME 70.5 fL (81.0-99.0); MEAN CORPUSCULAR HEMOGLOBIN 21.8 pg (27.0-31.0); MEAN PLATELET VOLUME 8.8 fL (7.2-11.7); MONO # 0.3 K/uL (0.0-0.8); NEUT # 6.6 K/uL (1.8-7.0); NEUT % 72.3 % (50.0-75.0); RBC 4.92 Mil/uL (3.80-5.20); RED CELL DISTRIBUTION WIDTH 17.3 % (11.5-14.5); WHITE BLOOD COUNT 9.1 K/uL (4.8-10.8)
[2018-07-11 14:42] LABS: HEMOGLOBIN 10.8 g/dL (11.0-16.0)
[2018-07-11 14:53] LABS: ALB/GLOB RATIO 0.8 (1.0-2.1); ALBUMIN 3.7 g/dL (3.5-5.0); ALT/SGPT 24 U/L (9-52); AST/SGOT 22 U/L (14-36); BLOOD UREA NITROGEN 20 mg/dL (7-17); GFR NON-AFRICAN AMERICAN > 60; LIPASE 41 U/L (23-300)
--- NOTE | 2018-07-11 15:13 | US ---
Date of service: 07/11/2018 HISTORY: RUQ pain COMPARISON: None. TECHNIQUE: Sonographic evaluation of the abdomen. FINDINGS: LIVER: Enlarged, measuring 17.8 cm. Normal echogenicity of the liver parenchyma. No mass. No intrahepatic bile duct dilatation. GALLBLADDER: Unremarkable. No gallstones. COMMON BILE DUCT: Measures 7 mm. No stones. No dilatation. PANCREAS: Unremarkable as visualized. No mass. No ductal dilatation. RIGHT KIDNEY: Measures 11.2 x 4.3 x 5.4cm. Normal echogenicity. No calculus, mass, or hydronephrosis. LEFT KIDNEY: Measures 11.5 x 5.3 x 5.4cm. Normal echogenicity. No calculus, mass, or hydronephrosis. SPLEEN: Normal in size and contour. No mass. AORTA: No aneurysmal dilatation. IVC: Unremarkable. OTHER FINDINGS: None. IMPRESSION: Borderline hepatomegaly.
--- NOTE | 2018-07-11 15:37 | RAD ---
Date of service: 07/11/2018 HISTORY: cough COMPARISON: 06/17/2017. FINDINGS: LUNGS: The lungs are well inflated. There is worsening pulmonary venous congestion and interval development of perihilar and lower lobe presumable pulmonary edema, worse in the right lower lobe. There is more confluent airspace disease in the right infrahilar region. PLEURA: No significant pleural effusion identified, no pneumothorax apparent. CARDIOVASCULAR: Stable cardiomegaly. OSSEOUS STRUCTURES: No significant abnormalities. VISUALIZED UPPER ABDOMEN: Normal. OTHER FINDINGS: None. IMPRESSION: Findings are most compatible with congestive heart failure. More confluent airspace disease in the right infrahilar region may represent edema or pneumonia. Follow-up after medical management is recommended to ensure complete resolution.
[2018-07-11] MEDS ORDERED: Albuterol-Ipratrop 3 mg / 0.5 (3 ml) UD IH STA (16:02)
[2018-07-11] MEDS ORDERED: MethylPREDNISolone 40 mg Vial IVP STA (16:03)
[2018-07-11] MEDS ORDERED: Albuterol-Ipratrop 3 mg / 0.5 (3 ml) UD ONE (16:18)
[2018-07-11] MEDS ORDERED: Dextrose 50% SYRINGE Inj (50 ml) IV PRN (16:47)
[2018-07-11] MEDS ORDERED: Glucagon Recombinant 1 mg Inj IM PRN (16:47)
[2018-07-11] MEDS ORDERED: Bisacodyl 5mg EC Tab PO ONE ×2 (17:34→22:45)
[2018-07-11 17:35] VITALS: RESP 20
[2018-07-11] MEDS: Azithromycin 500mg/250ML NS 500 MG/250 ML BAG IVPB SCH (17:44)
[2018-07-11] MEDS: (Novolog Mix 70/30) Insulin Aspart/Insulin Aspar 100 units/ml SC SCH (18:43)
[2018-07-11] MEDS: Nitroglycerin 2% Ointment Foilpak UD TOP PRN (19:42)
[2018-07-11] MEDS: Albuterol-Ipratrop 3 mg / 0.5 (3 ml) UD INH SCH (19:55)
[2018-07-11] MEDS: MethylPREDNISolone 40 mg Vial IVP SCH (21:47)
[2018-07-11] MEDS: (Novolog) Insulin Aspart, Recombinant 100 u/ml 10 ml vial SC SCH (22:50)
--- NOTE | 2018-07-12 00:36 | CP.PCM.HP ---
Present on Admission - Present on Admission Any Indicators Present on Admission: No Past Patient History - Infectious Disease Hx of Infectious Diseases: None - Past Medical History & Family History Past Medical History?: Yes - Past Social History Smoking Status: Former Smoker - CARDIAC Hx Hypercholesterolemia: Yes Hx Hypertension: Yes - PULMONARY Hx Asthma: Yes Hx Bronchitis: Yes Hx Chronic Obstructive Pulmonary Disease (COPD): Yes (USE OF BIPAP HOME O2) - NEUROLOGICAL Hx Migraine: Yes - HEENT Hx HEENT Problems: Yes Other/Comment: wears prescription eyeglasses - RENAL Hx Chronic Kidney Disease: No - ENDOCRINE/METABOLIC Hx Endocrine Disorders: Yes Hx Diabetes Mellitus Type 1: Yes - HEMATOLOGICAL/ONCOLOGICAL Hx Blood Disorders: No Hx Blood Transfusions: No Hx Blood Transfusion Reaction: No - INTEGUMENTARY Hx Dermatological Problems: No - MUSCULOSKELETAL/RHEUMATOLOGICAL Hx Arthritis: Yes - GASTROINTESTINAL Hx Gastrointestinal Disorders: Yes Hx Constipation: Yes - GENITOURINARY/GYNECOLOGICAL Hx Genitourinary Disorders: No - PSYCHIATRIC Hx Anxiety: Yes (NO MED) Hx Substance Use: Yes - SURGICAL HISTORY Hx Surgeries: Yes Hx Section: Yes Other/Comment: BOTH LEGS SKIN GRAFT - ANESTHESIA Hx Anesthesia: Yes Hx Anesthesia Reactions: No Hx Malignant Hyperthermia: No Meds Allergies/Adverse Reactions: Allergies Allergy/AdvReac Type Severity Reaction Status Date / Time No Known Allergies Allergy Unverified 07/11/18 14:27 Results - Vital Signs Recent Vital Signs: Last Vital Signs Temp 97.4 F L 07/11/18 17:15 Pulse 98 H 07/11/18 23:50 Resp 20 07/11/18 17:15 BP 178/130 H 07/11/18 18:37 Pulse Ox 96 07/11/18 17:15 - Labs Result Diagrams: 07/11/18 14:32 07/11/18 14:32 Labs: Laboratory Results - last 24 hr 07/11/18 07/11/18 07/11/18 14:32 14:32 17:24 WBC 9.1 RBC 4.92 Hgb 10.8 L D Hct 34.7 MCV 70.5 L MCH 21.8 L MCHC 31.0 L RDW 17.3 H Plt Count 340 D MPV 8.8 Neut % (Auto) 72.3 Lymph % (Auto) 23.9 Starr % (Auto) 3.0 Eos % (Auto) 0.3 Baso % (Auto) 0.5 Neut # (Auto) 6.6 Lymph # (Auto) 2.2 Starr # (Auto) 0.3 Eos # (Auto) 0.0 Baso # (Auto) 0.0 Sodium 142 Potassium 4.6 Chloride 99 Carbon Dioxide 34 H Anion Gap 13 BUN 20 H Creatinine 0.8 Est GFR ( Amer) > 60 Est GFR (Non-Af Amer) > 60 POC Glucose (mg/dL) 205 H Random Glucose 257 H Calcium 9.0 Total Bilirubin 0.4 AST 22 ALT 24 Alkaline Phosphatase 120 Troponin I < 0.0120 Total Protein 8.1 Albumin 3.7 Globulin 4.4 H Albumin/Globulin Ratio 0.8 L Lipase 41 07/11/18 07/11/18 21:29 23:40 WBC RBC Hgb Hct MCV MCH MCHC RDW Plt Count MPV Neut % (Auto) Lymph % (Auto) Starr % (Auto) Eos % (Auto) Baso % (Auto) Neut # (Auto) Lymph # (Auto) Starr # (Auto) Eos # (Auto) Baso # (Auto) Sodium Potassium Chloride Carbon Dioxide Anion Gap BUN Creatinine Est GFR ( Amer) Est GFR (Non-Af Amer) POC Glucose (mg/dL) 288 H Random Glucose Calcium Total Bilirubin AST ALT Alkaline Phosphatase Troponin I < 0.0120 Total Protein Albumin Globulin Albumin/Globulin Ratio Lipase
[2018-07-12] MEDS: Nitroglycerin 2% Ointment Foilpak UD TOP PRN ×2 (01:36→07:00)
[2018-07-12] MEDS: Albuterol-Ipratrop 3 mg / 0.5 (3 ml) UD INH SCH ×4 (01:42→19:43)
[2018-07-12] MEDS: MethylPREDNISolone 40 mg Vial IVP SCH ×3 (05:18→21:43)
[2018-07-12] MEDS: (Novolog Mix 70/30) Insulin Aspart/Insulin Aspar 100 units/ml SC SCH ×2 (08:30→17:33)
[2018-07-12] MEDS: (Novolog) Insulin Aspart, Recombinant 100 u/ml 10 ml vial SC SCH ×4 (08:30→21:43)
[2018-07-12] MEDS: Methadone 40 mg Tab PO SCH (10:27)
[2018-07-12] MEDS: diltiaZEM 180 mg/24 Hours CD Cap PO SCH (10:28)
[2018-07-12] MEDS: Enoxaparin 40 mg Syringe SC SCH (10:29)
--- NOTE | 2018-07-12 13:35 | CP.PCM.CON ---
History of Present Illness - History of Present Illness History of Present Illness: reason for consultation: shortness of breath/COPD 58-year-old femalewith history off COPD on home oxygen, long history of smoking quit recently, diabetes who presented to emergency room with cough and increasing shortness of breath Patient also had right upper quadrant pain. Denies fever chills, denies vomiting, denies diarrhea or constipation. patient was recently admitted at [facility] and treated for bronchitis patient also complaining of nocturnal snoring, choking and feel very tired during the daytime Review of Systems - Review of Systems All systems: reviewed and no additional remarkable complaints except (shortness of breath and cough) Past Patient History - Infectious Disease Hx of Infectious Diseases: None - Past Medical History & Family History Past Medical History?: Yes - Past Social History Smoking Status: Former Smoker - CARDIAC Hx Hypercholesterolemia: Yes Hx Hypertension: Yes - PULMONARY Hx Asthma: Yes Hx Bronchitis: Yes Hx Chronic Obstructive Pulmonary Disease (COPD): Yes (USE OF BIPAP HOME O2) - NEUROLOGICAL Hx Migraine: Yes - HEENT Hx HEENT Problems: Yes Other/Comment: wears prescription eyeglasses - RENAL Hx Chronic Kidney Disease: No - ENDOCRINE/METABOLIC Hx Endocrine Disorders: Yes Hx Diabetes Mellitus Type 1: Yes - HEMATOLOGICAL/ONCOLOGICAL Hx Blood Disorders: No Hx Blood Transfusions: No Hx Blood Transfusion Reaction: No - INTEGUMENTARY Hx Dermatological Problems: No - MUSCULOSKELETAL/RHEUMATOLOGICAL Hx Arthritis: Yes - GASTROINTESTINAL Hx Gastrointestinal Disorders: Yes Hx Constipation: Yes - GENITOURINARY/GYNECOLOGICAL Hx Genitourinary Disorders: No - PSYCHIATRIC Hx Anxiety: Yes (NO MED) Hx Substance Use: Yes - SURGICAL HISTORY Hx Surgeries: Yes Hx Section: Yes Other/Comment: BOTH LEGS SKIN GRAFT - ANESTHESIA Hx Anesthesia: Yes Hx Anesthesia Reactions: No Hx Malignant Hyperthermia: No Meds Allergies/Adverse Reactions: Allergies Allergy/AdvReac Type Severity Reaction Status Date / Time No Known Allergies Allergy Unverified 07/11/18 14:27 - Medications Medications: Current Medications Acetaminophen (Tylenol 325mg Tab) 650 mg PO Q6 PRN PRN Reason: Pain, moderate (4-7) Last Admin: 07/12/18 06:59 Dose: 650 mg Albuterol/Ipratropium (Duoneb 3 Mg/0.5 Mg (3 Ml) Ud) 3 ml INH RQ6 [facility] Last Admin: 07/12/18 08:55 Dose: 3 ml Aspirin (Ecotrin) 81 mg PO DAILY [facility] Last Admin: 07/12/18 10:28 Dose: 81 mg Benzonatate (Tessalon Perles) 100 mg PO DAILY [facility] Last Admin: 07/12/18 10:28 Dose: 100 mg Dextrose (Dextrose 50% Inj) 0 ml IV STAT PRN; Protocol PRN Reason: Hypoglycemia Protocol Dextrose (Glutose 15) 0 gm PO ONCE PRN; Protocol PRN Reason: Hypoglycemia Protocol Diltiazem HCl (Cardizem Cd) 180 mg PO DAILY [facility] Last Admin: 07/12/18 10:28 Dose: 180 mg Enoxaparin Sodium (Lovenox) 40 mg SC DAILY [facility] Last Admin: 07/12/18 10:29 Dose: 40 mg Furosemide (Lasix) 40 mg IVP DAILY [facility] Last Admin: 07/12/18 10:28 Dose: 40 mg Glucagon (Glucagen Diagnostic Kit) 0 mg IM STAT PRN; Protocol PRN Reason: Hypoglycemia Protocol Hydrochlorothiazide (Microzide) 12.5 mg PO DAILY [facility] Last Admin: 07/12/18 10:28 Dose: 12.5 mg Dextrose (Dextrose 5% In Water 1000 Ml) 1,000 mls @ 0 mls/hr IV .Q0M PRN; Protocol; Per Protocol PRN Reason: Hypoglycemia Protocol Ceftriaxone Sodium 1 gm/ (Sodium Chloride) 100 mls @ 100 mls/hr IVPB DAILY [facility] PRN Reason: Protocol Last Admin: 07/12/18 10:29 Dose: 100 mls/hr Azithromycin (Zithromax 500mg In Ns Addvantage) 500 mg in 250 mls @ 167 mls/hr IVPB Q24H [facility] PRN Reason: Protocol Last Admin: 07/11/18 17:44 Dose: 167 mls/hr Insulin Aspart (Novolog Mix 70/30 (70/30 Units/Ml)) 20 units SC BID [facility] Last Admin: 07/12/18 08:30 Dose: 20 unit Insulin Aspart (Novolog) 0 unit SC ACHS [facility] PRN Reason: Protocol Last Admin: 07/12/18 08:30 Dose: 8 units Losartan Potassium (Cozaar) 100 mg PO DAILY [facility] Last Admin: 07/12/18 10:28 Dose: 100 mg Methadone HCl (Methadose) 120 mg PO DAILY [facility] Last Admin: 09/01/18 10:27 Dose: 120 mg Methylprednisolone (Solu-Medrol) 40 mg IVP Q8 [facility] Last Admin: 07/12/18 05:18 Dose: 40 mg Nitroglycerin (Nitro-Bid 2% Oint) 1 ea TOP Q6 PRN PRN Reason: Hypertension Last Admin: 07/12/18 07:00 Dose: 1 ea Pantoprazole Sodium (Protonix Inj) 40 mg IVP DAILY [facility] Last Admin: 07/12/18 10:28 Dose: 40 mg Physical Exam - Head Exam Head Exam: ATRAUMATIC, NORMOCEPHALIC - ENT Exam ENT Exam: Mucous Membranes Moist - Neck Exam Neck exam: Positive for: Normal Inspection - Respiratory Exam Respiratory Exam: Clear to Auscultation Bilateral - Cardiovascular Exam Cardiovascular Exam: REGULAR RHYTHM - GI/Abdominal Exam GI & Abdominal Exam: Normal Bowel Sounds - Extremities Exam Extremities exam: Positive for: normal inspection Results - Vital Signs Recent Vital Signs: Last Vital Signs Temp 98.2 F 07/12/18 07:50 Pulse 88 07/12/18 09:00 Resp 20 07/12/18 07:50 BP 162/89 H 07/12/18 10:28 Pulse Ox 98 07/12/18 07:50 - Labs Result Diagrams: 07/11/18 14:32 07/11/18 14:32 Labs: Laboratory Results - last 24 hr 07/11/18 07/11/18 07/11/18 14:32 14:32 17:24 WBC 9.1 RBC 4.92 Hgb 10.8 L D Hct 34.7 MCV 70.5 L MCH 21.8 L MCHC 31.0 L RDW 17.3 H Plt Count 340 D MPV 8.8 Neut % (Auto) 72.3 Lymph % (Auto) 23.9 Howard % (Auto) 3.0 Eos % (Auto) 0.3 Baso % (Auto) 0.5 Neut # (Auto) 6.6 Lymph # (Auto) 2.2 Howard # (Auto) 0.3 Eos # (Auto) 0.0 Baso # (Auto) 0.0 Sodium 142 Potassium 4.6 Chloride 99 Carbon Dioxide 34 H Anion Gap 13 BUN 20 H Creatinine 0.8 Est GFR ( Amer) > 60 Est GFR (Non-Af Amer) > 60 POC Glucose (mg/dL) 205 H Random Glucose 257 H Calcium 9.0 Total Bilirubin 0.4 AST 22 ALT 24 Alkaline Phosphatase 120 Troponin I < 0.0120 Total Protein 8.1 Albumin 3.7 Globulin 4.4 H Albumin/Globulin Ratio 0.8 L Lipase 41 07/11/18 07/11/18 07/12/18 21:29 23:40 06:26 WBC RBC Hgb Hct MCV MCH MCHC RDW Plt Count MPV Neut % (Auto) Lymph % (Auto) Howard % (Auto) Eos % (Auto) Baso % (Auto) Neut # (Auto) Lymph # (Auto) Howard # (Auto) Eos # (Auto) Baso # (Auto) Sodium Potassium Chloride Carbon Dioxide Anion Gap BUN Creatinine Est GFR ( Amer) Est GFR (Non-Af Amer) POC Glucose (mg/dL) 288 H 373 H Random Glucose Calcium Total Bilirubin AST ALT Alkaline Phosphatase Troponin I < 0.0120 Total Protein Albumin Globulin Albumin/Globulin Ratio Lipase 07/12/18 11:18 WBC RBC Hgb Hct MCV MCH MCHC RDW Plt Count MPV Neut % (Auto) Lymph % (Auto) Howard % (Auto) Eos % (Auto) Baso % (Auto) Neut # (Auto) Lymph # (Auto) Howard # (Auto) Eos # (Auto) Baso # (Auto) Sodium Potassium Chloride Carbon Dioxide Anion Gap BUN Creatinine Est GFR ( Amer) Est GFR (Non-Af Amer) POC Glucose (mg/dL) 341 H Random Glucose Calcium Total Bilirubin AST ALT Alkaline Phosphatase Troponin I Total Protein Albumin Globulin Albumin/Globulin Ratio Lipase Assessment & Plan (1) COPD exacerbation Status: Acute Comment: continue nebulizer treatment. IV steroids. Sleep study as outpatient. ABG on room air (2) SANTY (obstructive sleep apnea) Status: Acute
[2018-07-12] MEDS: Potassium Chloride 20 mEq ER Tab PO SCH (16:20)
[2018-07-12] MEDS: Azithromycin 500mg/250ML NS 500 MG/250 ML BAG IVPB SCH (17:32)
[2018-07-12] MEDS: guaiFENesin 100 mg/5 ml Syrup UD PO SCH (21:43)
--- NOTE | 2018-07-12 21:45 | CON ---
Copied To: Johnny Drake MD Attending MD: Johnny Drake MD DATE: 07/12/2018 CARDIOLOGY CONSULTATION REASON FOR CONSULTATION: Shortness of breath. HISTORY OF PRESENT ILLNESS: The patient is a 58-year-old female who has a history of chronic obstructive lung disease, on nasal O2 at home. She quit smoking a few months ago. She has a history of drug abuse on methadone and history of two strokes in the past. She was recently discharged from [facility]. The patient was admitted because of right upper quadrant pain. The patient reports at this time the same right upper quadrant pain which is sharp in nature, nonradiating. The patient is also experiencing productive cough. The patient denies any fever or chills. The patient is unaware of any history of heart attack in the past. MEDICATIONS: Cardizem CD 180 mg once a day, aztreonam 1 g intravenously daily, Cozaar 100 mg once a day, aspirin 81 mg once a day, Lovenox 40 mg subcutaneously once a day, Lasix 40 mg intravenously once a day, hydrochlorothiazide 12.5 mg once a day, Solu-Medrol 40 mg intravenously every 8 hours, Protonix 40 mg intravenously once a day, Zithromax 500 mg intravenously daily. REVIEW OF SYSTEMS: The patient denies fever or chills. The patient denies dizziness or syncope. PHYSICAL EXAMINATION: GENERAL: The patient is a middle-aged female who does not appear to be in acute distress. VITAL SIGNS: Blood pressure 162/89, heart rate 88, temperature 98.2, and respirations 20. HEENT: Normocephalic. CHEST: Diffuse bilateral rhonchi. HEART: S1 and S2 are regular. EXTREMITIES: 1+ edema with chronic skin changes and evidence of old left leg inner side scarring that has a history of skin graft with right inner leg grafting for previous skin ulcer. LABORATORY DATA: SMA-7 today is within normal limits except glucose of , carbon dioxide of 34, and BUN of 20. Two sets of troponins are negative. Lipase is within normal limit. Hemoglobin and hematocrit 10.8 and 34.7, white count and platelet count are within normal limit. EKG revealed sinus rhythm, prolonged QT interval. Abdominal ultrasound, borderline hepatomegaly. Chest x-ray revealed cardiomegaly with bilateral alveolar infiltrates involving mainly in the right middle and lower lobes as well as in the left central lung zone. ASSESSMENT: 1. Consider bilateral pneumonia. 2. Rule out diastolic heart failure. 3. Chronic obstructive lung disease. 4. Abnormal electrocardiogram with evidence of prolonged QT interval. 5. Uncontrolled diabetes mellitus. 6. Hypertension. 7. History of cerebrovascular accident in the past. RECOMMENDATIONS: Continue Cardizem CD 180 mg once a day, Cozaar 100 mg once a day, aspirin 81 mg once a day, Lasix 40 mg intravenously daily, hydrochlorothiazide 12.5 mg once a day, Solu-Medrol 40 mg intravenously every 8 hours, Zithromax 500 mg intravenously daily. I will review the echocardiographic study performed today. Start K-Dur 20 mEq orally once a day and obtain serum magnesium level. Johnny Drake MD
[2018-07-12 23:07] LABS: BARBITURATES, UR NEGATIVE (NEGATIVE); BENZODIAZEPINES, UR NEGATIVE (NEGATIVE); OPIATES, UR NEGATIVE (NEGATIVE); PHENCYCLIDINE, UR NEGATIVE (NEGATIVE)
[2018-07-13] MEDS: Albuterol-Ipratrop 3 mg / 0.5 (3 ml) UD INH SCH ×4 (01:28→19:24)
[2018-07-13] MEDS: MethylPREDNISolone 40 mg Vial IVP SCH ×3 (05:51→21:55)
[2018-07-13] MEDS: Nitroglycerin 2% Ointment Foilpak UD TOP PRN (05:52)
[2018-07-13] MEDS: (Novolog) Insulin Aspart, Recombinant 100 u/ml 10 ml vial SC SCH ×4 (08:30→21:56)
[2018-07-13] MEDS: diltiaZEM 180 mg/24 Hours CD Cap PO SCH (09:17)
[2018-07-13] MEDS: Potassium Chloride 20 mEq ER Tab PO SCH (09:17)
[2018-07-13] MEDS: Methadone 40 mg Tab PO SCH (09:18)
[2018-07-13] MEDS: guaiFENesin 100 mg/5 ml Syrup UD PO SCH ×4 (09:18→21:55)
[2018-07-13] MEDS: Enoxaparin 40 mg Syringe SC SCH (09:18)
[2018-07-13] MEDS: (Novolog Mix 70/30) Insulin Aspart/Insulin Aspar 100 units/ml SC SCH ×2 (09:22→17:28)
--- NOTE | 2018-07-13 14:16 | CP.PCM.PN ---
Subjective - Date & Time of Evaluation Date of Evaluation: 07/13/18 Time of Evaluation: 14:11 - Subjective Subjective: Pulmonary, Covering Dr Zhang The patient was Seen/interviewed and examined by me at the bedside, Medical records reviewed and Management issues were discussed and formulated with the house staff. Events reviewed 58-year-old former heavy smoker female with PMHx of diabetes, obstructive sleep apnea and COPD on home oxygen Who presented to emergency room with cough and increasing shortness of breath Patient also had right upper quadrant pain. patient also complaining of daytime sleepiness, loud chronic snoring, choking and feel very tired during the daytime Denies fever chills, denies vomiting, denies diarrhea or constipation. patient was recently admitted at [facility] and treated for bronchitis She is feeling better today Comfortable, NAD Pt AAO x3. Breathing unlabored. Denies any chest pain, SOB or Palpitations No headache, photophobia, vision changes, vertigo or double vision Afebrile. Adequate saturations on 2L via nasal cannula Afebrile CXR: 07/11/2018 IMPRESSION: Findings are most compatible with congestive heart failure. More confluent airspace disease in the right infrahilar region may represent edema or pneumonia. No significant pleural effusion identified, no pneumothorax apparent. Objective - Vital Signs/Intake and Output Vital Signs (last 24 hours): Temp Pulse Resp BP Pulse Ox 98.3 F 86 20 141/81 95 07/13/18 07:00 07/13/18 11:46 07/13/18 07:00 07/13/18 09:17 07/13/18 07:00 - Medications Medications: Current Medications Acetaminophen (Tylenol 325mg Tab) 650 mg PO Q6 PRN PRN Reason: Pain, moderate (4-7) Last Admin: 07/12/18 06:59 Dose: 650 mg Albuterol/Ipratropium (Duoneb 3 Mg/0.5 Mg (3 Ml) Ud) 3 ml INH RQ6 [facility] Last Admin: 07/13/18 13:42 Dose: 3 ml Aspirin (Ecotrin) 81 mg PO DAILY [facility] Last Admin: 07/13/18 09:17 Dose: 81 mg Benzonatate (Tessalon Perles) 100 mg PO DAILY [facility] Last Admin: 07/13/18 09:17 Dose: 100 mg Dextrose (Dextrose 50% Inj) 0 ml IV STAT PRN; Protocol PRN Reason: Hypoglycemia Protocol Dextrose (Glutose 15) 0 gm PO ONCE PRN; Protocol PRN Reason: Hypoglycemia Protocol Diltiazem HCl (Cardizem Cd) 180 mg PO DAILY [facility] Last Admin: 07/13/18 09:17 Dose: 180 mg Enoxaparin Sodium (Lovenox) 40 mg SC DAILY [facility] Last Admin: 07/13/18 09:18 Dose: 40 mg Furosemide (Lasix) 40 mg IVP DAILY [facility] Last Admin: 07/13/18 09:17 Dose: 40 mg Glucagon (Glucagen Diagnostic Kit) 0 mg IM STAT PRN; Protocol PRN Reason: Hypoglycemia Protocol Guaifenesin (Robitussin) 100 mg PO QID [facility] Last Admin: 07/13/18 13:29 Dose: 100 mg Hydrochlorothiazide (Microzide) 12.5 mg PO DAILY [facility] Last Admin: 07/13/18 09:17 Dose: 12.5 mg Dextrose (Dextrose 5% In Water 1000 Ml) 1,000 mls @ 0 mls/hr IV .Q0M PRN; Protocol; Per Protocol PRN Reason: Hypoglycemia Protocol Ceftriaxone Sodium 1 gm/ (Sodium Chloride) 100 mls @ 100 mls/hr IVPB DAILY [facility] PRN Reason: Protocol Last Admin: 07/13/18 09:28 Dose: 100 mls/hr Azithromycin (Zithromax 500mg In Ns Addvantage) 500 mg in 250 mls @ 167 mls/hr IVPB Q24H [facility] PRN Reason: Protocol Last Admin: 07/12/18 17:32 Dose: 167 mls/hr Insulin Aspart (Novolog Mix 70/30 (70/30 Units/Ml)) 20 units SC BID [facility] Last Admin: 07/13/18 09:22 Dose: 20 unit Insulin Aspart (Novolog) 0 unit SC ACHS [facility] PRN Reason: Protocol Last Admin: 07/13/18 12:21 Dose: 6 units Losartan Potassium (Cozaar) 100 mg PO DAILY [facility] Last Admin: 07/13/18 09:17 Dose: 100 mg Methadone HCl (Methadose) 120 mg PO DAILY [facility] Last Admin: 07/13/18 09:18 Dose: 120 mg Methylprednisolone (Solu-Medrol) 40 mg IVP Q8 [facility] Last Admin: 07/13/18 13:29 Dose: 40 mg Nitroglycerin (Nitro-Bid 2% Oint) 1 ea TOP Q6 PRN PRN Reason: Hypertension Last Admin: 07/13/18 05:52 Dose: 1 ea Pantoprazole Sodium (Protonix Inj) 40 mg IVP DAILY [facility] Last Admin: 07/13/18 09:17 Dose: 40 mg Potassium Chloride (K-Dur 20 Meq Er Tab) 20 meq PO DAILY [facility] Last Admin: 07/13/18 09:17 Dose: 20 meq - Labs Labs: 07/11/18 14:32 07/11/18 14:32 PT 11.0 SECONDS (9.7-12.2) 07/12/18 17:19 INR 1.0 07/12/18 17:19 APTT 32 SECONDS (21-34) 07/12/18 17:19 - Constitutional Appears: Well, Non-toxic - Head Exam Head Exam: ATRAUMATIC, NORMAL INSPECTION - Eye Exam Pupil Exam: NORMAL ACCOMODATION, PERRL - ENT Exam ENT Exam: Mucous Membranes Moist - Neck Exam Neck Exam: Full ROM - Respiratory Exam Respiratory Exam: Decreased Breath Sounds, Prolonged Expiratory Phase, Rhonchi, Wheezes. absent: Rales, Respiratory Distress - Cardiovascular Exam Cardiovascular Exam: REGULAR RHYTHM, RRR, +S1, +S2. absent: JVD - GI/Abdominal Exam GI & Abdominal Exam: Soft, Normal Bowel Sounds. absent: Distended, Tenderness - Back Exam Back Exam: absent: CVA tenderness (L), CVA tenderness (R) - Neurological Exam Neurological Exam: Alert, Awake, CN II-XII Intact, Normal Gait, Oriented x3 Assessment and Plan (1) COPD exacerbation Status: Acute (2) Hypoxia Status: Acute (3) SANTY (obstructive sleep apnea) Status: Acute - Assessment and Plan (Free Text) Assessment: Continue nebulizer treatment INH RQ6 [facility]OLA Continue IV steroids Solu-Medrol 40 mg IVP Q8 IV Antibiotics with Ceftriaxone1 gm IVPB DAILY and Azithromycin 500 mg IVPB Q24H [facility] Wean off BIPAP, Use of BIPAP as needed ABG on room air DVT PPx with Lovenox 40 mg SC DAILY Sleep study as outpatient.
[2018-07-13] MEDS: Benzocaine/Menthol (Cepacol) Lozenge MT SCH ×2 (17:29→21:56)
[2018-07-13] MEDS: Azithromycin 500mg/250ML NS 500 MG/250 ML BAG IVPB SCH (17:31)
--- NOTE | 2018-07-13 21:56 | PN ---
Copied To: Johnny Drake MD Attending MD: Johnny Drake MD DATE: 07/13/2018 SUBJECTIVE: The patient is experiencing cough, sore throat, as well as hoarseness of her voice. She has significant mucus production. PHYSICAL EXAMINATION: VITAL SIGNS: Blood pressure 141/81, heart rate 77, temperature 98.3, respirations 20. HEENT: Normocephalic. CHEST: Decreased bilateral rhonchi. HEART: S1 and S2, regular. EXTREMITIES: 1+ pitting edema. LABORATORY DATA: Urine drug screen is positive for methadone. ASSESSMENT: 1. Bilateral pneumonia. 2. Chronic obstructive lung disease. 3. Uncontrolled diabetes mellitus. 4. Hypertension. 5. History of cerebrovascular accident. 6. Laryngitis. PLAN: Continue Cardizem CD once a day, IV Rocephin 1 g daily, Cozaar 100 mg once a day, aspirin 81 mg once a day, Lasix 40 mg twice daily, K-Dur 20 mEq once a day, methadone 120 mg once daily, Lovenox 40 mg subcutaneously once a day, Robitussin 100 mg p.o. 4 times a day, Solu-Medrol 40 mg intravenously every 8 hours, Zithromax 500 mg daily, Chloraseptic lozenges 4 times a day. Johnny Drake MD
[2018-07-14] MEDS: Nitroglycerin 2% Ointment Foilpak UD TOP PRN (00:29)
[2018-07-14] MEDS: Albuterol-Ipratrop 3 mg / 0.5 (3 ml) UD INH SCH ×4 (02:21→19:08)
[2018-07-14] MEDS: MethylPREDNISolone 40 mg Vial IVP SCH ×2 (06:42→13:47)
[2018-07-14] MEDS: (Novolog) Insulin Aspart, Recombinant 100 u/ml 10 ml vial SC SCH ×5 (07:39→21:29)
[2018-07-14] MEDS: guaiFENesin 100 mg/5 ml Syrup UD PO SCH ×4 (09:51→21:29)
[2018-07-14] MEDS: diltiaZEM 180 mg/24 Hours CD Cap PO SCH (09:51)
[2018-07-14] MEDS: Methadone 40 mg Tab PO SCH (09:51)
[2018-07-14] MEDS: Potassium Chloride 20 mEq ER Tab PO SCH (09:52)
[2018-07-14] MEDS: Enoxaparin 40 mg Syringe SC SCH (09:53)
[2018-07-14] MEDS: Benzocaine/Menthol (Cepacol) Lozenge MT SCH ×3 (10:22→21:28)
[2018-07-14] MEDS: (Novolog Mix 70/30) Insulin Aspart/Insulin Aspar 100 units/ml SC SCH (10:30)
--- NOTE | 2018-07-14 11:33 | CARD ---
APPROVED REPORT Date of service: 07/12/2018 EXAM: Two-dimensional and M-mode echocardiogram with Doppler and color Doppler. Other Information Quality : GoodRhythm : INDICATION Dyspnea COPD RISK FACTORS Hypertension Diabetes 2D DIMENSIONS IVSd1.4 (0.7-1.1cm)LVDd4.5 (3.9-5.9cm) LVOT Diameter1.9 (1.8-2.4cm)PWd1.4 (0.7-1.1cm) LVDs2.8 (2.5-4.0cm)FS (%) 37.8 % LVEF (%)68.1 (>50%) M-Mode DIMENSIONS Left Atrium (MM)4.13 (2.5-4.0cm)Aortic Root3.06 (2.2-3.7cm) Aortic Cusp Exc.1.59 (1.5-2.0cm) Mitral Valve MV E [id number]/sMV A [id number]/sE/A ratio1.0 TDI E/Lateral E'0.0E/Medial E'0.0 Tricuspid Valve TR Peak [id number]/sTR Peak [id number] LEFT VENTRICLE The left ventricle is normal size. There is normal left ventricular wall thickness. The left ventricular function is normal. The left ventricular ejection fraction is within the normal range. There is normal LV segmental wall motion. Transmitral Doppler flow pattern is abnormal. RIGHT VENTRICLE The right ventricle is normal size. ATRIA The left atrium is borderline dilated. The right atrium size is normal. AORTIC VALVE The aortic valve is normal in structure. MITRAL VALVE The mitral valve is normal in structure. TRICUSPID VALVE There is mild tricuspid regurgitation. <Conclusion> Normal LV systolic function. Diastolic dysfunction. Borderline dilated LA. Mild TR.
[2018-07-14] MEDS: Azithromycin 500mg/250ML NS 500 MG/250 ML BAG IVPB SCH (17:15)
--- NOTE | 2018-07-14 18:34 | PN ---
Copied To: Johnny Drake MD Attending MD: Johnny Drake MD DATE: 07/14/2018 SUBJECTIVE: The patient still experiencing shortness of breath and productive cough. PHYSICAL EXAMINATION: VITAL SIGNS: Blood pressure 166/92, heart rate 75, temperature 97.7, respirations 20. HEENT: Normocephalic. CHEST: Diffuse bilateral rhonchi and scattered wheezing. HEART: S1 and S2 regular. ABDOMEN: Soft. Extremities: Trace leg edema with chronic skin changes. LABORATORY DATA: Trace today's blood sugars are more than 500. Abdominal ultrasound, borderline hepatomegaly. ASSESSMENT: 1. Exacerbation of chronic obstructive lung disease. 2. Bilateral pneumonia. 3. Uncontrolled diabetes mellitus. 4. Hypertension. 5. History of cerebrovascular accident. PLAN: The patient had received 10 units of regular insulin and endocrinology consult was requested from . In the meantime, the patient will be maintained on Cardizem at 180 mg once a day, IV Rocephin 1 g daily, Cozaar 100 mg once a day, Lasix 40 mL intravenously once a day, K-Dur 20 milliequivalents once a day, hydrochlorothiazide 12.5 mg once a day, Solu-Medrol 40 mg intravenously every 8 hours, Zithromax 100 mL intravenously daily. Obtain CBC, BMP and hemoglobin A1c. Johnny Drake MD
--- NOTE | 2018-07-14 19:38 | CP.PCM.PN ---
Subjective - Date & Time of Evaluation Date of Evaluation: 07/14/18 Time of Evaluation: 19:38 - Subjective Subjective: Pulmonary Folow up, Covering Dr Zhang The patient was Seen/interviewed and examined by me at the bedside, Medical records reviewed and Management issues were discussed and formulated with the house staff. Events reviewed AAOx3, comfortable, NAD Improved Respiratory status, On nocturnal BIPAP Breathing unlabored, on 2L NC O2 sat 96%. Afebrile Complain of horsness of voice Denies any chest pain, SOB or Palpitations Objective - Vital Signs/Intake and Output Vital Signs (last 24 hours): Temp Pulse Resp BP Pulse Ox 98.3 F 84 20 156/85 H 98 07/14/18 15:35 07/14/18 16:04 07/14/18 15:35 07/14/18 15:35 07/14/18 15:35 - Medications Medications: Current Medications Acetaminophen (Tylenol 325mg Tab) 650 mg PO Q6 PRN PRN Reason: Pain, moderate (4-7) Last Admin: 07/12/18 06:59 Dose: 650 mg Albuterol/Ipratropium (Duoneb 3 Mg/0.5 Mg (3 Ml) Ud) 3 ml INH RQ6 [facility] Last Admin: 07/14/18 19:08 Dose: 3 ml Aspirin (Ecotrin) 81 mg PO DAILY [facility] Last Admin: 07/14/18 09:53 Dose: 81 mg Benzocaine/Menthol (Cepacol Sore Throat) 1 michelle MT QID [facility] Last Admin: 07/14/18 17:13 Dose: 1 michelle Benzonatate (Tessalon Perles) 100 mg PO DAILY [facility] Last Admin: 07/14/18 10:22 Dose: 100 mg Dextrose (Dextrose 50% Inj) 0 ml IV STAT PRN; Protocol PRN Reason: Hypoglycemia Protocol Dextrose (Glutose 15) 0 gm PO ONCE PRN; Protocol PRN Reason: Hypoglycemia Protocol Diltiazem HCl (Cardizem Cd) 180 mg PO DAILY [facility] Last Admin: 07/14/18 09:51 Dose: 180 mg Enoxaparin Sodium (Lovenox) 40 mg SC DAILY [facility] Last Admin: 07/14/18 09:53 Dose: 40 mg Furosemide (Lasix) 40 mg IVP DAILY [facility] Last Admin: 07/14/18 09:52 Dose: 40 mg Glucagon (Glucagen Diagnostic Kit) 0 mg IM STAT PRN; Protocol PRN Reason: Hypoglycemia Protocol Guaifenesin (Robitussin) 100 mg PO QID [facility] Last Admin: 07/14/18 17:13 Dose: 100 mg Hydrochlorothiazide (Microzide) 12.5 mg PO DAILY [facility] Last Admin: 07/14/18 09:51 Dose: 12.5 mg Ceftriaxone Sodium 1 gm/ (Sodium Chloride) 100 mls @ 100 mls/hr IVPB DAILY [facility] PRN Reason: Protocol Last Admin: 07/14/18 11:40 Dose: 100 mls/hr Azithromycin (Zithromax 500mg In Ns Addvantage) 500 mg in 250 mls @ 167 mls/hr IVPB Q24H [facility] PRN Reason: Protocol Last Admin: 07/14/18 17:15 Dose: 167 mls/hr Insulin Aspart (Novolog) 30 unit SC AC [facility] Last Admin: 07/14/18 17:13 Dose: 30 unit Insulin Aspart (Novolog) 0 unit SC ACHS [facility] PRN Reason: Protocol Last Admin: 07/14/18 17:14 Dose: 6 unit Insulin Detemir (Levemir) 50 unit SC HS [facility] Losartan Potassium (Cozaar) 100 mg PO DAILY [facility] Last Admin: 07/14/18 09:51 Dose: 100 mg Methadone HCl (Methadose) 120 mg PO DAILY [facility] Last Admin: 07/14/18 09:51 Dose: 120 mg Nitroglycerin (Nitro-Bid 2% Oint) 1 ea TOP Q6 PRN PRN Reason: Hypertension Last Admin: 07/14/18 00:29 Dose: 1 ea Pantoprazole Sodium (Protonix Ec Tab) 40 mg PO DAILY [facility] Potassium Chloride (K-Dur 20 Meq Er Tab) 20 meq PO DAILY [facility] Last Admin: 07/14/18 09:52 Dose: 20 meq - Labs Labs: 07/11/18 14:32 07/11/18 14:32 PT 11.0 SECONDS (9.7-12.2) 07/12/18 17:19 INR 1.0 07/12/18 17:19 APTT 32 SECONDS (21-34) 07/12/18 17:19 - Constitutional Appears: Well, Non-toxic, No Acute Distress - Head Exam Head Exam: ATRAUMATIC, NORMAL INSPECTION - Eye Exam Eye Exam: EOMI, Normal appearance. absent: Conjunctival injection Pupil Exam: NORMAL ACCOMODATION, PERRL - Neck Exam Neck Exam: Full ROM, Normal Inspection. absent: Lymphadenopathy, Meningismus - Respiratory Exam Respiratory Exam: Decreased Breath Sounds, Prolonged Expiratory Phase, Wheezes. absent: Accessory Muscle Use, Chest Wall Tenderness, Clear to Ausculation Bilateral, Respiratory Distress, Stridor - Cardiovascular Exam Cardiovascular Exam: REGULAR RHYTHM, RRR, +S1, +S2. absent: JVD - GI/Abdominal Exam GI & Abdominal Exam: Soft, Normal Bowel Sounds. absent: Distended, Firm, Guarding, Rigid - Back Exam Back Exam: absent: CVA tenderness (R) - Neurological Exam Neurological Exam: Alert, Awake, CN II-XII Intact, Oriented x3. absent: Altered Assessment and Plan (1) Hoarseness of voice Assessment & Plan: Could be related to BIPAP machine If persist, will consider ENT consult Status: Acute (2) COPD exacerbation Assessment & Plan: Continue nebulizer treatment. Continue IV steroids. Status: Acute (3) Hypoxia Assessment & Plan: ABG on RA Status: Acute (4) SANTY (obstructive sleep apnea) Assessment & Plan: Sleep study as outpatient. Status: Acute
[2018-07-14] MEDS ORDERED: Insulin Detemir 100 units/ml Vial (Levemir) SC SCH (22:00)
[2018-07-15] MEDS: Albuterol-Ipratrop 3 mg / 0.5 (3 ml) UD INH SCH ×4 (01:15→21:18)
--- NOTE | 2018-07-15 02:37 | CON ---
Copied To: Tiny Camarena MD Attending MD: Tiny Camarena MD DATE: 07/14/2018 LOCATION: Room 669. HISTORY OF PRESENT ILLNESS: This is a 58-year-old female with known history of type 2 insulin-requiring diabetes, presenting here with progressive shortness of breath and supervening right upper quadrant pain and has been evaluated to have acute exacerbation of COPD and given IV steroids with marked hyperglycemic accelerations and is now being referred for diabetic evaluation and management. PAST MEDICAL HISTORY: As mentioned above, history of type 2 insulin-requiring diabetes, actually on a premixed insulin regimen at home, using Humalog 75/25 given as 40 units once daily. History of hypertension and dyslipidemia, history of chronic obstructive lung disease with previous admissions for exacerbation of the same, history of opiate dependence, and currently on methadone maintenance therapy, history of obstructive sleep apnea, and underlying COPD with home oxygen, using a BiPAP device. FAMILY HISTORY: Positive for diabetes and hypertension. SOCIAL HISTORY: The patient admits to previous history of smoking but quit a few years ago. Also history of polysubstance abuse, currently on methadone maintenance therapy. REVIEW OF SYSTEMS: As mentioned above, admits to generalized body weakness with exotic bouts of dizziness and lightheadedness, worse on the day of admission. Also admits to increasing hypersomnolence and lethargy. As noted, also admits to bifrontal headaches with history of blurring, worse on the day of admission. No chest pains but admits to progressive shortness of breath initially on exertion and then at rest with paroxysmal nocturnal dyspnea. Her oral intake has been variable with nausea, dyspepsia, and vague upper abdominal pain as noted. PHYSICAL EXAMINATION: GENERAL: This is an obese female, in no apparent distress with a blood pressure of 160/100, pulse of 100 beats per minute and regular, temperature 98, respirations 20. Height is 5 feet 1 inch. Weight is 240 pounds. HEENT: Head normocephalic. Eyes anicteric with pink conjunctivae. Funduscopy not possible at this time. Ears, nose, and throat, otherwise, normal. NECK: Supple. Thyroid gland is normal size. No carotid bruits or cervical adenopathy. CARDIOPULMONARY: Some adynamic precordium. S1, S2 rapid and regular. LUNGS: Show scattered rhonchi ABDOMEN: Obese, soft with positive bowel sounds. EXTREMITIES: No peripheral edema. Pulses are +2 bilaterally. LABORATORY DATA: Chemistry showed BUN of 20, sodium 142, potassium 4.6, chloride 99, CO2 of 34, glucose 257, creatinine 0.8. Her glucose levels today have ranged from 395 to over 500 mg/dL. ASSESSMENT: This is a 58-year-old female with uncontrolled and decompensated type 2 insulin requiring diabetes with marked hyperglycemic accelerations and concomitant hyperosmolar hyperglycemic state and dehydration related to the intercurrent IV steroid therapy which is causing transient hyperglycemic accelerations from the increasing insulin resistance thereof. She also has significant history of chronic obstructive lung disease with obstructive sleep apnea, currently using a home BiPAP device and presenting here with aforementioned metabolic decompensation. PLAN OF MANAGEMENT: We will modify her current insulin regimen to a more physiologic basal and bolus insulin drug combination, and discontinue her NovoLog 70/30 given as a premixed insulin at this time. We will switch her over to the plain NovoLog insulin analog and give her 30 units subcu t.i.d. before meals to start today. We will also add basal insulin with Levemir to be given as 50 units subcu at bedtime daily to start tonight. We will modify the coverage scale to obviate hypoglycemia and detailed orders have been given for Novolog coverage only about 300 mg/dL. We will obtain serial chemistries and supplement accordingly as needed. We will also obtain hemoglobin A1c . We will follow. Tiny Camarena MD
[2018-07-15 07:38] LABS: BASO % 0.2 % (0.0-2.0); LYMPH # 2.2 K/uL (1.0-4.3); LYMPH % 23.1 % (20.0-40.0); MEAN CELL VOLUME 69.5 fL (81.0-99.0); MEAN CORPUSCULAR HEMOGLOBIN 21.6 pg (27.0-31.0); MEAN CORPUSCULAR HGB CONC 31.1 g/dL (33.0-37.0); MEAN PLATELET VOLUME 9.3 fL (7.2-11.7); MONO # 0.8 K/uL (0.0-0.8); MONO % 8.4 % (0.0-10.0); NEUT # 6.5 K/uL (1.8-7.0); NEUT % 68.3 % (50.0-75.0); NRBC % 0.2 % (0.0-2.0); RBC 5.11 Mil/uL (3.80-5.20); RED CELL DISTRIBUTION WIDTH 17.1 % (11.5-14.5); WHITE BLOOD COUNT 9.5 K/uL (4.8-10.8)
[2018-07-15] MEDS: (Novolog) Insulin Aspart, Recombinant 100 u/ml 10 ml vial SC SCH ×7 (08:09→22:29)
[2018-07-15 08:43] LABS: ALBUMIN 3.8 g/dL (3.5-5.0); ALT/SGPT 27 U/L (9-52); AST/SGOT 27 U/L (14-36); BLOOD UREA NITROGEN 42 mg/dL (7-17); GFR NON-AFRICAN AMERICAN 51; HDL CHOLESTEROL 57 mg/dL (30-70)
[2018-07-15 08:54] LABS: LDL CHOLESTEROL 130 mg/dL (0-129)
[2018-07-15] MEDS: Methadone 40 mg Tab PO SCH (09:25)
[2018-07-15] MEDS: diltiaZEM 180 mg/24 Hours CD Cap PO SCH (09:26)
[2018-07-15] MEDS: Potassium Chloride 20 mEq ER Tab PO SCH (09:26)
[2018-07-15] MEDS: Enoxaparin 40 mg Syringe SC SCH (09:26)
[2018-07-15] MEDS: guaiFENesin 100 mg/5 ml Syrup UD PO SCH ×2 (09:26→14:56)
[2018-07-15] MEDS: Pantoprazole 40 mg EC Tab PO SCH (09:27)
[2018-07-15] MEDS: Benzocaine/Menthol (Cepacol) Lozenge MT SCH ×4 (09:27→22:29)
--- NOTE | 2018-07-15 15:44 | PN ---
Copied To: Tiny Camarena MD Attending MD: Tiny Camarena MD DATE: 07/15/2018 ENDO FOLLOWUP NOTE. LOCATION: In room 669. SUBJECTIVE: This is a 58-year-old female with recent uncontrolled type 2 insulin-requiring diabetes, now being followed closely for metabolic management because of recent hyperglycemic accelerations with the intercurrent IV steroid therapy as given. She presented here with acute exacerbation of COPD and severe bronchospasm, currently improving clinically and hemodynamically as noted thereof. Her glycemic levels overnight are fluctuating, but improved and the glucose values have ranged from 216 to 257 mg/dL. Her bedtime glucose was still 440 mg/dL. LABORATORY DATA: Her chemistries today showed a BUN of 42, sodium 138, potassium 4.3, chloride 93, CO2 of 38, glucose 216, and creatinine 1.1. Her hemoglobin A1c is 9.5%, which is elevated and indicative of suboptimal metabolic control with diabetic condition even prior to this admission. PLAN OF MANAGEMENT: We will modify once again her basal and bolus insulin regimen and increase the Levemir to 50 units subcu at bedtime daily to start tonight. We will also increase her NovoLog to 30 units subcutaneous t.i.d. before meals to start today as ordered. We will modify the covering scale to obviate hypoglycemia and detailed orders have been given. We will follow and advise accordingly. Tiny Camarena MD
[2018-07-15] MEDS ORDERED: POLYETHYLENE GLYCOL 3350 17 GM/Dose PACKET PO ONE (16:16)
--- NOTE | 2018-07-15 16:49 | CP.PCM.PN ---
Subjective - Date & Time of Evaluation Date of Evaluation: 07/15/18 Time of Evaluation: 12:20 - Subjective Subjective: Patient seen and examined still complaining of shortness of breath unable to bring up phlegm Afebrile No chest pain Objective - Vital Signs/Intake and Output Vital Signs (last 24 hours): Temp Pulse Resp BP Pulse Ox 98.5 F 85 20 125/86 96 07/15/18 15:42 07/15/18 16:10 07/15/18 15:42 07/15/18 15:42 07/15/18 15:42 - Medications Medications: Current Medications Acetaminophen (Tylenol 325mg Tab) 650 mg PO Q6 PRN PRN Reason: Pain, moderate (4-7) Last Admin: 07/12/18 06:59 Dose: 650 mg Acetylcysteine (Acetylcysteine 20%) 4 ml INH Q6H [facility] Albuterol/Ipratropium (Duoneb 3 Mg/0.5 Mg (3 Ml) Ud) 3 ml INH RQ6 [facility] Last Admin: 07/15/18 13:39 Dose: 3 ml Aspirin (Ecotrin) 81 mg PO DAILY [facility] Last Admin: 07/15/18 09:26 Dose: 81 mg Benzocaine/Menthol (Cepacol Sore Throat) 1 michelle MT QID [facility] Last Admin: 07/15/18 14:56 Dose: 1 michelle Dextrose (Dextrose 50% Inj) 0 ml IV STAT PRN; Protocol PRN Reason: Hypoglycemia Protocol Dextrose (Glutose 15) 0 gm PO ONCE PRN; Protocol PRN Reason: Hypoglycemia Protocol Diltiazem HCl (Cardizem Cd) 180 mg PO DAILY [facility] Last Admin: 07/15/18 09:26 Dose: 180 mg Enoxaparin Sodium (Lovenox) 40 mg SC DAILY [facility] Last Admin: 07/15/18 09:26 Dose: 40 mg Furosemide (Lasix) 40 mg IVP DAILY [facility] Last Admin: 07/15/18 09:27 Dose: 40 mg Glucagon (Glucagen Diagnostic Kit) 0 mg IM STAT PRN; Protocol PRN Reason: Hypoglycemia Protocol Ceftriaxone Sodium 1 gm/ (Sodium Chloride) 100 mls @ 100 mls/hr IVPB DAILY [facility] PRN Reason: Protocol Last Admin: 07/15/18 14:57 Dose: 100 mls/hr Azithromycin (Zithromax 500mg In Ns Addvantage) 500 mg in 250 mls @ 167 mls/hr IVPB Q24H [facility] PRN Reason: Protocol Last Admin: 07/14/18 17:15 Dose: 167 mls/hr Insulin Aspart (Novolog) 30 unit SC AC [facility] Last Admin: 07/15/18 14:59 Dose: Not Given Insulin Aspart (Novolog) 0 unit SC ACHS [facility] PRN Reason: Protocol Last Admin: 07/15/18 14:59 Dose: Not Given Insulin Detemir (Levemir) 50 unit SC HS [facility] Last Admin: 07/14/18 21:29 Dose: 50 unit Losartan Potassium (Cozaar) 100 mg PO DAILY [facility] Last Admin: 07/15/18 09:26 Dose: 100 mg Methadone HCl (Methadose) 120 mg PO DAILY [facility] Last Admin: 07/15/18 09:25 Dose: 120 mg Nitroglycerin (Nitro-Bid 2% Oint) 1 ea TOP Q6 PRN PRN Reason: Hypertension Last Admin: 07/14/18 00:29 Dose: 1 ea Pantoprazole Sodium (Protonix Ec Tab) 40 mg PO DAILY [facility] Last Admin: 07/15/18 09:27 Dose: 40 mg Potassium Chloride (K-Dur 20 Meq Er Tab) 20 meq PO DAILY [facility] Last Admin: 07/15/18 09:26 Dose: 20 meq - Labs Labs: 07/15/18 07:28 07/15/18 07:28 PT 11.0 SECONDS (9.7-12.2) 07/12/18 17:19 INR 1.0 07/12/18 17:19 APTT 32 SECONDS (21-34) 07/12/18 17:19 - Head Exam Head Exam: ATRAUMATIC, NORMOCEPHALIC - ENT Exam ENT Exam: Mucous Membranes Moist - Neck Exam Neck Exam: Normal Inspection - Respiratory Exam Respiratory Exam: Rhonchi - Cardiovascular Exam Cardiovascular Exam: REGULAR RHYTHM Assessment and Plan (1) COPD exacerbation Assessment & Plan: continue nebulizer treatment and steroids Add Mucomyst Discontinue benzonatate Status: Acute (2) SANTY (obstructive sleep apnea) Status: Acute
[2018-07-15] MEDS: Azithromycin 500mg/250ML NS 500 MG/250 ML BAG IVPB SCH (17:39)
--- NOTE | 2018-07-15 20:31 | PN ---
Copied To: Johnny Drake MD Attending MD: Johnny Drake MD DATE: 07/15/2018 SUBJECTIVE: The patient is still experiencing cough. She denies any chest pain. She is mildly short of breath. No fever or chills. Physical examination: Vital signs: Blood pressure 146/86, heart rate 70, temperature 98.2, respirations 20. HEENT: Normocephalic. Chest: Bilateral rhonchi. HEART: S1 and S2 regular. Extremities: Trace leg edema. LABORATORY DATA: Today's hemoglobin, hematocrit, white count and platelet count are within normal limit. Today's SMA-7, sodium 138, potassium 4.3, chloride 93, CO2 of 38, glucose 216, BUN 42, creatinine 1.1. Total cholesterol is 224, triglycerides 154, LDL cholesterol 130, the three are elevated. TSH level is 0.3. ASSESSMENT: 1. Exacerbation of chronic obstructive lung disease. 2. Uncontrolled diabetes mellitus. 3. Hyperlipidemia. 4. Prerenal azotemia. 5. Hypertension. 6. Bilateral pneumonia. RECOMMENDATIONS: Continue Cardizem CD mg once a day, IV Rocephin 1 g daily, Cozaar mg once a day, aspirin 81 mg once a day, K-Dur 20 milliequivalents once a day, Lasix 40 mg intravenously once a day. Discontinue hydrochlorothiazide. Continue Zithromax at 500 mg intravenously daily. Johnny Drake MD
[2018-07-15] MEDS: Acetylcysteine 20% Inhal Soln (4ml) INH SCH ×2 (21:17→21:19)
--- NOTE | 2018-07-15 21:30 | CP.PCM.PN ---
Objective - Vital Signs/Intake and Output Vital Signs (last 24 hours): Temp Pulse Resp BP Pulse Ox 98.5 F 83 20 125/86 96 07/15/18 15:42 07/15/18 20:25 07/15/18 15:42 07/15/18 15:42 07/15/18 15:42 - Medications Medications: Current Medications Acetaminophen (Tylenol 325mg Tab) 650 mg PO Q6 PRN PRN Reason: Pain, moderate (4-7) Last Admin: 07/12/18 06:59 Dose: 650 mg Acetylcysteine (Acetylcysteine 20%) [address] [facility] Last Admin: 07/15/18 21:19 Dose: 4 ml Albuterol/Ipratropium (Duoneb 3 Mg/0.5 Mg (3 Ml) Ud) [address] [facility] Last Admin: 07/15/18 21:18 Dose: 3 ml Aspirin (Ecotrin) [address] [facility] Last Admin: 07/15/18 09:26 Dose: 81 mg Benzocaine/Menthol (Cepacol Sore Throat) [address] [facility] Last Admin: 07/15/18 17:47 Dose: Not Given Dextrose (Dextrose 50% Inj) 0 ml IV STAT PRN; Protocol PRN Reason: Hypoglycemia Protocol Dextrose (Glutose 15) 0 gm PO ONCE PRN; Protocol PRN Reason: Hypoglycemia Protocol Diltiazem HCl (Cardizem Cd) [address] [facility] Last Admin: 07/15/18 09:26 Dose: 180 mg Enoxaparin Sodium (Lovenox) [address] [facility] Last Admin: 07/15/18 09:26 Dose: 40 mg Glucagon (Glucagen Diagnostic Kit) 0 mg IM STAT PRN; Protocol PRN Reason: Hypoglycemia Protocol Ceftriaxone Sodium 1 gm/ (Sodium Chloride) 100 mls @ 100 mls/hr IVPB DAILY [facility] PRN Reason: Protocol Last Admin: 07/15/18 14:57 Dose: 100 mls/hr Azithromycin (Zithromax 500mg In Ns Addvantage) 500 mg in 250 mls @ 167 mls/hr IVPB Q24H [facility] PRN Reason: Protocol Last Admin: 07/15/18 17:39 Dose: 167 mls/hr Insulin Aspart (Novolog) 30 unit SC [facility] Last Admin: 09/04/18 17:39 Dose: 30 unit Insulin Aspart (Novolog) [address] [facility] PRN Reason: Protocol Last Admin: 07/15/18 17:29 Dose: Not Given Insulin Detemir (Levemir) [address] [facility] Last Admin: 07/14/18 21:29 Dose: 50 unit Losartan Potassium (Cozaar) [address] [facility] Last Admin: 07/15/18 09:26 Dose: 100 mg Methadone HCl (Methadose) [address] [facility] Last Admin: 07/15/18 09:25 Dose: 120 mg Nitroglycerin (Nitro-Bid 2% Oint) 1 ea TOP Q6 PRN PRN Reason: Hypertension Last Admin: 07/14/18 00:29 Dose: 1 ea Pantoprazole Sodium (Protonix Ec Tab) [address] [facility] Last Admin: 07/15/18 09:27 Dose: 40 mg Potassium Chloride (K-Dur 20 Meq Er Tab) [address] [facility] Last Admin: 07/15/18 09:26 Dose: 20 meq - Labs Labs: 07/15/18 07:28 07/15/18 07:28 PT 11.0 SECONDS (9.7-12.2) 07/12/18 17:19 INR 1.0 07/12/18 17:19 APTT 32 SECONDS (21-34) 07/12/18 17:19
[2018-07-15] MEDS: Insulin Detemir 100 units/ml Vial (Levemir) SC SCH (21:55)
[2018-07-15] MEDS ORDERED: Insulin Detemir 100 units/ml Vial (Levemir) SC SCH (22:00)
[2018-07-16] MEDS: Acetylcysteine 20% Inhal Soln (4ml) INH SCH ×4 (02:47→20:05)
[2018-07-16] MEDS: Albuterol-Ipratrop 3 mg / 0.5 (3 ml) UD INH SCH ×4 (02:47→20:04)
--- NOTE | 2018-07-16 06:42 | PN ---
Copied To: Fernando Godinez MD Attending MD: Fernando Godinez MD DATE: 07/15/2018 SUBJECTIVE: The patient is still coughing. She is wheezing. She is drowsy. She has had some methadone. No fever. PHYSICAL EXAMINATION: VITAL SIGNS: BP 125/66, pulse 99, respiratory rate 22, temperature 98.5. LUNGS: Bilateral rhonchi. . CARDIOVASCULAR SYSTEM: S1, S2, regular. ABDOMEN: Soft. ASSESSMENT: 1. Exacerbation of chronic obstructive pulmonary disease. 2. Status post pneumonia. 3. Diabetes. 4. Opioid dependence. PLAN: Continue current medication. Monitor patient. Fernando Godinez MD
[2018-07-16] MEDS ORDERED: (Novolog Mix 70/30) Insulin Aspart/Insulin Aspar 100 units/ml SC SCH ×2 (07:30→16:30)
[2018-07-16] MEDS: (Novolog) Insulin Aspart, Recombinant 100 u/ml 10 ml vial SC SCH ×4 (08:30→21:45)
[2018-07-16] MEDS: diltiaZEM 180 mg/24 Hours CD Cap PO SCH (09:28)
[2018-07-16] MEDS: Pantoprazole 40 mg EC Tab PO SCH (09:28)
[2018-07-16] MEDS: Enoxaparin 40 mg Syringe SC SCH (09:28)
[2018-07-16] MEDS: Methadone 40 mg Tab PO SCH (09:28)
[2018-07-16] MEDS: Potassium Chloride 20 mEq ER Tab PO SCH (09:28)
[2018-07-16] MEDS: Benzocaine/Menthol (Cepacol) Lozenge MT SCH ×4 (10:21→22:07)
--- NOTE | 2018-07-16 17:36 | CP.PCM.PN ---
Subjective - Date & Time of Evaluation Date of Evaluation: 07/16/18 Time of Evaluation: 11:45 - Subjective Subjective: patient seen and examined Complaining of constipation Breathing better Unable to bring up phlegm Afebrile No chest pain Continue nebulizer treatment ok to DC home Objective - Vital Signs/Intake and Output Vital Signs (last 24 hours): Temp Pulse Resp BP Pulse Ox 98.3 F 71 20 116/58 L 96 07/16/18 08:40 07/16/18 08:40 07/16/18 08:40 07/16/18 08:40 07/16/18 08:40 - Medications Medications: Current Medications Acetaminophen (Tylenol 325mg Tab) 650 mg PO Q6 PRN PRN Reason: Pain, moderate (4-7) Last Admin: 07/12/18 06:59 Dose: 650 mg Acetylcysteine (Acetylcysteine 20%) 4 ml INH RQ6 [facility] Last Admin: 07/16/18 14:39 Dose: 4 ml Albuterol/Ipratropium (Duoneb 3 Mg/0.5 Mg (3 Ml) Ud) 3 ml INH RQ6 [facility] Last Admin: 07/16/18 14:39 Dose: 3 ml Aspirin (Ecotrin) 81 mg PO DAILY [facility] Last Admin: 07/16/18 09:29 Dose: 81 mg Benzocaine/Menthol (Cepacol Sore Throat) 1 michelle MT QID [facility] Last Admin: 07/16/18 13:38 Dose: 1 michelle Dextrose (Dextrose 50% Inj) 0 ml IV STAT PRN; Protocol PRN Reason: Hypoglycemia Protocol Dextrose (Glutose 15) 0 gm PO ONCE PRN; Protocol PRN Reason: Hypoglycemia Protocol Diltiazem HCl (Cardizem Cd) 180 mg PO DAILY [facility] Last Admin: 07/16/18 09:28 Dose: 180 mg Enoxaparin Sodium (Lovenox) 40 mg SC DAILY [facility] Last Admin: 07/16/18 09:28 Dose: 40 mg Glucagon (Glucagen Diagnostic Kit) 0 mg IM STAT PRN; Protocol PRN Reason: Hypoglycemia Protocol Ceftriaxone Sodium 1 gm/ (Sodium Chloride) 100 mls @ 100 mls/hr IVPB DAILY [facility] PRN Reason: Protocol Last Admin: 07/16/18 09:31 Dose: 100 mls/hr Insulin Aspart (Novolog) 0 unit SC ACHS [facility] PRN Reason: Protocol Last Admin: 07/16/18 12:15 Dose: Not Given Insulin Aspart (Novolog Mix 70/30 (70/30 Units/Ml)) 24 units SC ACB [facility] Last Admin: 07/16/18 08:30 Dose: 24 units Insulin Aspart (Novolog Mix 70/30 (70/30 Units/Ml)) 18 units SC ACD [facility] Insulin Detemir (Levemir) 20 unit SC HS [facility] Last Admin: 07/15/18 21:55 Dose: 20 u Losartan Potassium (Cozaar) 100 mg PO DAILY [facility] Last Admin: 07/16/18 09:29 Dose: 100 mg Methadone HCl (Methadose) 120 mg PO DAILY [facility] Last Admin: 07/16/18 09:28 Dose: 120 mg Nitroglycerin (Nitro-Bid 2% Oint) 1 ea TOP Q6 PRN PRN Reason: Hypertension Last Admin: 07/14/18 00:29 Dose: 1 ea Pantoprazole Sodium (Protonix Ec Tab) 40 mg PO DAILY [facility] Last Admin: 07/16/18 09:28 Dose: 40 mg Polyethylene Glycol (Miralax) 17 gm PO ONCE ONE Stop: 07/16/18 17:46 Potassium Chloride (K-Dur 20 Meq Er Tab) 20 meq PO DAILY [facility] Last Admin: 07/16/18 09:28 Dose: 20 meq - Labs Labs: 07/15/18 07:28 07/15/18 07:28 PT 11.0 SECONDS (9.7-12.2) 07/12/18 17:19 INR 1.0 07/12/18 17:19 APTT 32 SECONDS (21-34) 07/12/18 17:19 Assessment and Plan (1) COPD exacerbation Status: Acute (2) SANTY (obstructive sleep apnea) Status: Acute
[2018-07-16] MEDS ORDERED: POLYETHYLENE GLYCOL 3350 17 GM/Dose PACKET PO ONE (17:45)
[2018-07-16] MEDS: Azithromycin 500mg/250ML NS 500 MG/250 ML BAG IVPB SCH (17:49)
--- NOTE | 2018-07-16 19:53 | PN ---
Copied To: Tiny Camarena MD Attending MD: Tiny Camarena MD DATE: 07/16/2018 ENDO FOLLOWUP NOTE LOCATION: In room 669. SUBJECTIVE: This is a 58-year-old female with recent uncontrolled type 2 insulin-requiring diabetes, presenting here with acute exacerbation of COPD and started on IV steroid therapy with supervening marked hyperglycemic accelerations as noted thereof. She has been taken off IV steroids from yesterday as noted and the glucose values have improved remarkably despite the present glycemic fluctuations. Her latest glucose values have ranged from 146 to 199 and 246 mg/dL. LABORATORY DATA: Her latest chemistry showed a BUN of 42, sodium 138, potassium 4.3, chloride 93, CO2 of 38, glucose 216, and creatinine 1.1. Her TSH is 0.30 with a T4 of 6.05 indicative of the so-called acute sick euthyroid syndrome. ASSESSMENT: This is a 58-year-old female with uncontrolled and decompensated type 2 insulin-requiring diabetes with marked hyperglycemic accelerations noted with the initiation of intravenous steroid therapy as given. PLAN OF MANAGEMENT: So, at this time we will modify her current insulin regimen as she has been tapered off the IV steroid therapy as noted. I discussed with the patient in length at bedside. We will modify the current insulin regimen and switch over to NovoLog 70/30 given as the premixed insulin regimen and start her on 24 units before breakfast and 18 units before dinner to start today. We will also modify her basal insulin and lower the Levemir to 20 units subcu at bedtime daily to start tonight. We will modify the coverage scale to obviate hypoglycemia and detailed orders have been given. We will obtain serial chemistries and supplement accordingly as needed. We will follow. Tiny Camarena MD
--- NOTE | 2018-07-16 19:57 | PN ---
Copied To: Johnny Drake MD Attending MD: Johnny Drake MD DATE: 07/16/2018 SUBJECTIVE: The patient denies chest pain. She is experiencing shortness of breath and productive cough. PHYSICAL EXAMINATION: VITAL SIGNS: Blood pressure 116/58, heart rate 71, temperature 98.3, and respirations 20. HEENT: Normocephalic. CHEST: Diffuse bilateral rhonchi. HEART: S1 and S2 regular. EXTREMITIES: Trace leg edema. LABORATORY DATA: Today's blood sugars are 199 and 246. ASSESSMENT: 1. Re-exacerbation of chronic obstructive lung disease. 2. Diabetes mellitus. 3. Hyperlipidemia. 4. Systemic hypertension. 5. Bilateral pneumoniae. RECOMMENDATIONS: Continue Cardizem CD at 180 mg once a day, IV Rocephin 1 g daily, Cepacol lozenges four times a day, Cozaar 100 mg once a day, aspirin 81 mg once a day, K-Dur 20 mEq once a day, Lovenox 40 mg subcutaneously once a day, and IV Zithromax 500 mg daily. Johnny Drake MD
--- NOTE | 2018-07-16 21:36 | CP.PCM.PN ---
Objective - Vital Signs/Intake and Output Vital Signs (last 24 hours): Temp Pulse Resp BP Pulse Ox 97.8 F 88 20 120/83 96 07/16/18 15:00 07/16/18 15:00 07/16/18 15:00 07/16/18 15:00 07/16/18 15:00 - Medications Medications: Current Medications Acetaminophen (Tylenol 325mg Tab) 650 mg PO Q6 PRN PRN Reason: Pain, moderate (4-7) Last Admin: 07/12/18 06:59 Dose: 650 mg Acetylcysteine (Acetylcysteine 20%) 4 ml INH RQ6 [facility] Last Admin: 07/16/18 20:05 Dose: 4 ml Albuterol/Ipratropium (Duoneb 3 Mg/0.5 Mg (3 Ml) Ud) 3 ml INH RQ6 [facility] Last Admin: 07/16/18 20:04 Dose: 3 ml Aspirin (Ecotrin) 81 mg PO DAILY [facility] Last Admin: 07/16/18 09:29 Dose: 81 mg Benzocaine/Menthol (Cepacol Sore Throat) 1 michelle MT QID [facility] Last Admin: 07/16/18 18:00 Dose: Not Given Dextrose (Dextrose 50% Inj) 0 ml IV STAT PRN; Protocol PRN Reason: Hypoglycemia Protocol Dextrose (Glutose 15) 0 gm PO ONCE PRN; Protocol PRN Reason: Hypoglycemia Protocol Diltiazem HCl (Cardizem Cd) 180 mg PO DAILY [facility] Last Admin: 07/16/18 09:28 Dose: 180 mg Enoxaparin Sodium (Lovenox) 40 mg SC DAILY [facility] Last Admin: 07/16/18 09:28 Dose: 40 mg Glucagon (Glucagen Diagnostic Kit) 0 mg IM STAT PRN; Protocol PRN Reason: Hypoglycemia Protocol Ceftriaxone Sodium 1 gm/ (Sodium Chloride) 100 mls @ 100 mls/hr IVPB DAILY [facility] PRN Reason: Protocol Last Admin: 07/16/18 09:31 Dose: 100 mls/hr Insulin Aspart (Novolog) 0 unit SC ACHS [facility] PRN Reason: Protocol Last Admin: 07/16/18 16:30 Dose: Not Given Insulin Aspart (Novolog Mix 70/30 (70/30 Units/Ml)) 24 units SC ACB [facility] Last Admin: 07/16/18 08:30 Dose: 24 units Insulin Aspart (Novolog Mix 70/30 (70/30 Units/Ml)) 18 units SC ACD [facility] Last Admin: 07/16/18 17:48 Dose: 18 u Insulin Detemir (Levemir) 20 unit SC HS [facility] Last Admin: 07/15/18 21:55 Dose: 20 u Losartan Potassium (Cozaar) 100 mg PO DAILY [facility] Last Admin: 07/16/18 09:29 Dose: 100 mg Methadone HCl (Methadose) 120 mg PO DAILY [facility] Last Admin: 07/16/18 09:28 Dose: 120 mg Nitroglycerin (Nitro-Bid 2% Oint) 1 ea TOP Q6 PRN PRN Reason: Hypertension Last Admin: 07/14/18 00:29 Dose: 1 ea Pantoprazole Sodium (Protonix Ec Tab) 40 mg PO DAILY [facility] Last Admin: 07/16/18 09:28 Dose: 40 mg Potassium Chloride (K-Dur 20 Meq Er Tab) 20 meq PO DAILY [facility] Last Admin: 07/16/18 09:28 Dose: 20 meq - Labs Labs: 07/15/18 07:28 07/15/18 07:28 PT 11.0 SECONDS (9.7-12.2) 07/12/18 17:19 INR 1.0 07/12/18 17:19 APTT 32 SECONDS (21-34) 07/12/18 17:19
[2018-07-16] MEDS: Insulin Detemir 100 units/ml Vial (Levemir) SC SCH (22:08)
[2018-07-17] MEDS: Acetylcysteine 20% Inhal Soln (4ml) INH SCH ×4 (01:50→20:02)
[2018-07-17] MEDS: Albuterol-Ipratrop 3 mg / 0.5 (3 ml) UD INH SCH ×4 (01:50→20:02)
[2018-07-17 07:55] LABS: BASO % 0.4 % (0.0-2.0); EOS # 0.2 K/uL (0.0-0.7); EOS % 3.4 % (0.0-4.0); LYMPH # 2.1 K/uL (1.0-4.3); LYMPH % 30.1 % (20.0-40.0); MEAN CORPUSCULAR HEMOGLOBIN 21.2 pg (27.0-31.0); MEAN CORPUSCULAR HGB CONC 30.2 g/dL (33.0-37.0); MEAN PLATELET VOLUME 9.1 fL (7.2-11.7); MONO # 0.6 K/uL (0.0-0.8); MONO % 8.8 % (0.0-10.0); NEUT % 57.3 % (50.0-75.0); NRBC % 0.1 % (0.0-2.0); RBC 5.23 Mil/uL (3.80-5.20); RED CELL DISTRIBUTION WIDTH 16.9 % (11.5-14.5)
[2018-07-17 08:38] LABS: HEMOGLOBIN 12.2 g/dL (11.0-16.0)
[2018-07-17] MEDS: (Novolog) Insulin Aspart, Recombinant 100 u/ml 10 ml vial SC SCH ×4 (08:55→22:52)
[2018-07-17] MEDS: (Novolog Mix 70/30) Insulin Aspart/Insulin Aspar 100 units/ml SC SCH (09:04)
[2018-07-17] MEDS: diltiaZEM 180 mg/24 Hours CD Cap PO SCH (09:09)
[2018-07-17] MEDS: Enoxaparin 40 mg Syringe SC SCH (09:09)
[2018-07-17] MEDS: Methadone 40 mg Tab PO SCH (09:09)
[2018-07-17] MEDS: Pantoprazole 40 mg EC Tab PO SCH (09:12)
[2018-07-17] MEDS: Benzocaine/Menthol (Cepacol) Lozenge MT SCH ×4 (09:15→22:52)
[2018-07-17 09:16] LABS: ALBUMIN 3.5 g/dL (3.5-5.0); ALT/SGPT 29 U/L (9-52); AST/SGOT 19 U/L (14-36); BLOOD UREA NITROGEN 30 mg/dL (7-17); CALCIUM 8.7 mg/dl (8.6-10.4); GFR NON-AFRICAN AMERICAN 57
--- NOTE | 2018-07-17 11:31 | PN ---
DATE: 07/16/2018 SUBJECTIVE: The patient has less cough, less short of breath and wheezing. She is constipated. She is on methadone 120 mg. PHYSICAL EXAMINATION: VITAL SIGNS: BP 120/82, pulse 58, respiratory rate 20, temperature 97.8. LUNGS: Decreased air entry. Positive rhonchi. CARDIOVASCULAR SYSTEM: S1 and S2, regular. ABDOMEN: Soft. ASSESSMENT: 1. Exacerbation of chronic obstructive pulmonary disease. 2. Hypertension. 3. Opioid dependence. 4. Type 2 diabetes. PLAN: Continue current medication. Monitor the patient. Fernando Godinez MD
[2018-07-17 16:13] VITALS: O2SAT 96
[2018-07-17] MEDS ORDERED: (Novolog Mix 70/30) Insulin Aspart/Insulin Aspar 100 units/ml SC SCH (16:30)
[2018-07-17 17:05] LABS: AMYLASE 92 U/L (30-110); LIPASE 59 U/L (23-300)
--- NOTE | 2018-07-17 17:50 | CP.PCM.PN ---
Subjective - Date & Time of Evaluation Date of Evaluation: 07/17/18 Time of Evaluation: 10:45 - Subjective Subjective: patient seen and examined Cough and shortness of breath much improved Afebrile No chest pain Objective - Vital Signs/Intake and Output Vital Signs (last 24 hours): Temp Pulse Resp BP Pulse Ox 98.4 F 92 H 20 141/85 96 07/17/18 15:00 07/17/18 15:00 07/17/18 15:00 07/17/18 15:00 07/17/18 15:00 Intake and Output: 07/17/18 07/17/18 06:59 18:59 Intake Total 480 Balance 480 - Medications Medications: Current Medications Acetaminophen (Tylenol 325mg Tab) 650 mg PO Q6 PRN PRN Reason: Pain, moderate (4-7) Last Admin: 07/12/18 06:59 Dose: 650 mg Acetylcysteine (Acetylcysteine 20%) 4 ml INH RQ6 [facility] Last Admin: 07/17/18 14:01 Dose: 4 ml Albuterol/Ipratropium (Duoneb 3 Mg/0.5 Mg (3 Ml) Ud) 3 ml INH RQ6 [facility] Last Admin: 07/17/18 14:01 Dose: 3 ml Aspirin (Ecotrin) 81 mg PO DAILY [facility] Last Admin: 07/17/18 09:08 Dose: 81 mg Benzocaine/Menthol (Cepacol Sore Throat) 1 michelle MT QID [facility] Last Admin: 07/17/18 13:13 Dose: 1 michelle Dextrose (Dextrose 50% Inj) 0 ml IV STAT PRN; Protocol PRN Reason: Hypoglycemia Protocol Dextrose (Glutose 15) 0 gm PO ONCE PRN; Protocol PRN Reason: Hypoglycemia Protocol Diltiazem HCl (Cardizem Cd) 180 mg PO DAILY [facility] Last Admin: 07/17/18 09:09 Dose: 180 mg Enoxaparin Sodium (Lovenox) 40 mg SC DAILY [facility] Last Admin: 07/17/18 09:09 Dose: 40 mg Glucagon (Glucagen Diagnostic Kit) 0 mg IM STAT PRN; Protocol PRN Reason: Hypoglycemia Protocol Ceftriaxone Sodium 1 gm/ (Sodium Chloride) 100 mls @ 100 mls/hr IVPB DAILY [facility] PRN Reason: Protocol Last Admin: 07/17/18 10:15 Dose: 100 mls/hr Insulin Aspart (Novolog) 0 unit SC ACHS [facility] PRN Reason: Protocol Last Admin: 07/17/18 12:24 Dose: Not Given Insulin Aspart (Novolog Mix 70/30 (70/30 Units/Ml)) 30 units SC ACB [facility] Last Admin: 07/17/18 09:04 Dose: 30 u Insulin Aspart (Novolog Mix 70/30 (70/30 Units/Ml)) 24 units SC ACD [facility] Insulin Detemir (Levemir) 20 unit SC HS [facility] Last Admin: 07/16/18 22:08 Dose: 20 u Lactulose (Enulose) 20 gm PO HS [facility] Last Admin: 07/16/18 22:08 Dose: Not Given Losartan Potassium (Cozaar) 100 mg PO DAILY [facility] Last Admin: 07/17/18 09:09 Dose: 100 mg Methadone HCl (Methadose) 120 mg PO DAILY [facility] Last Admin: 07/17/18 09:09 Dose: 120 mg Nitroglycerin (Nitro-Bid 2% Oint) 1 ea TOP Q6 PRN PRN Reason: Hypertension Last Admin: 07/14/18 00:29 Dose: 1 ea Pantoprazole Sodium (Protonix Ec Tab) 20 mg PO DAILY [facility] Last Admin: 07/17/18 09:12 Dose: 20 mg - Labs Labs: 07/17/18 07:37 07/17/18 07:37 PT 11.0 SECONDS (9.7-12.2) 07/12/18 17:19 INR 1.0 07/12/18 17:19 APTT 32 SECONDS (21-34) 07/12/18 17:19 - Head Exam Head Exam: ATRAUMATIC, NORMOCEPHALIC - ENT Exam ENT Exam: Mucous Membranes Moist - Neck Exam Neck Exam: Normal Inspection - Respiratory Exam Respiratory Exam: Decreased Breath Sounds - Cardiovascular Exam Cardiovascular Exam: REGULAR RHYTHM Assessment and Plan (1) COPD exacerbation Assessment & Plan: switched to p.o. prednisone Nebulizer treatment Sleep study as outpatient Status: Acute (2) SANTY (obstructive sleep apnea) Status: Acute
--- NOTE | 2018-07-17 22:15 | CP.PCM.PN ---
Objective - Vital Signs/Intake and Output Vital Signs (last 24 hours): Temp Pulse Resp BP Pulse Ox 98.4 F 92 H 20 141/85 96 07/17/18 15:00 07/17/18 15:00 07/17/18 15:00 07/17/18 15:00 07/17/18 15:00 Intake and Output: 07/17/18 07/18/18 18:59 06:59 Intake Total 480 Balance 480 - Medications Medications: Current Medications Acetaminophen (Tylenol 325mg Tab) 650 mg PO Q6 PRN PRN Reason: Pain, moderate (4-7) Last Admin: 07/12/18 06:59 Dose: 650 mg Acetylcysteine (Acetylcysteine 20%) 4 ml INH RQ6 [facility] Last Admin: 07/17/18 20:02 Dose: 4 ml Albuterol/Ipratropium (Duoneb 3 Mg/0.5 Mg (3 Ml) Ud) 3 ml INH RQ6 [facility] Last Admin: 07/17/18 20:02 Dose: 3 ml Aspirin (Ecotrin) 81 mg PO DAILY [facility] Last Admin: 07/17/18 09:08 Dose: 81 mg Benzocaine/Menthol (Cepacol Sore Throat) 1 michelle MT QID [facility] Last Admin: 07/17/18 18:21 Dose: 1 michelle Dextrose (Dextrose 50% Inj) 0 ml IV STAT PRN; Protocol PRN Reason: Hypoglycemia Protocol Dextrose (Glutose 15) 0 gm PO ONCE PRN; Protocol PRN Reason: Hypoglycemia Protocol Diltiazem HCl (Cardizem Cd) 180 mg PO DAILY [facility] Last Admin: 07/17/18 09:09 Dose: 180 mg Enoxaparin Sodium (Lovenox) 40 mg SC DAILY [facility] Last Admin: 07/17/18 09:09 Dose: 40 mg Glucagon (Glucagen Diagnostic Kit) 0 mg IM STAT PRN; Protocol PRN Reason: Hypoglycemia Protocol Ceftriaxone Sodium 1 gm/ (Sodium Chloride) 100 mls @ 100 mls/hr IVPB DAILY [facility] PRN Reason: Protocol Last Admin: 07/17/18 10:15 Dose: 100 mls/hr Insulin Aspart (Novolog) 0 unit SC ACHS [facility] PRN Reason: Protocol Last Admin: 07/17/18 18:21 Dose: Not Given Insulin Aspart (Novolog Mix 70/30 (70/30 Units/Ml)) 30 units SC ACB [facility] Last Admin: 07/17/18 09:04 Dose: 30 u Insulin Aspart (Novolog Mix 70/30 (70/30 Units/Ml)) 24 units SC ACD [facility] Last Admin: 07/17/18 17:30 Dose: 24 units Insulin Detemir (Levemir) 20 unit SC HS [facility] Last Admin: 07/16/18 22:08 Dose: 20 u Lactulose (Enulose) 20 gm PO HS [facility] Last Admin: 07/16/18 22:08 Dose: Not Given Losartan Potassium (Cozaar) 100 mg PO DAILY [facility] Last Admin: 07/17/18 09:09 Dose: 100 mg Methadone HCl (Methadose) 120 mg PO DAILY [facility] Last Admin: 07/17/18 09:09 Dose: 120 mg Nitroglycerin (Nitro-Bid 2% Oint) 1 ea TOP Q6 PRN PRN Reason: Hypertension Last Admin: 07/14/18 00:29 Dose: 1 ea Pantoprazole Sodium (Protonix Ec Tab) 20 mg PO DAILY [facility] Last Admin: 07/17/18 09:12 Dose: 20 mg - Labs Labs: 07/17/18 07:37 07/17/18 07:37 PT 11.0 SECONDS (9.7-12.2) 07/12/18 17:19 INR 1.0 07/12/18 17:19 APTT 32 SECONDS (21-34) 07/12/18 17:19
--- NOTE | 2018-07-17 22:26 | PN ---
DATE: 07/17/2018 SUBJECTIVE: The patient is still complaining of shortness of breath and cough as well as right subcostal pain. PHYSICAL EXAMINATION: VITAL SIGNS: Blood pressure 140/78, heart rate 81, temperature 97.8, and respirations 20. HEENT: Normocephalic. CHEST: Bilateral rhonchi. HEART: S1 and S2, regular. EXTREMITIES: Trace leg edema. LABORATORY DATA: Today's hemoglobin and hematocrit 12.2 and 36.6. White count and platelet count are within normal limit. Today's SMA-7: Sodium 140, potassium 4.4, chloride 96, CO2 of 36, glucose 196, BUN 30, and creatinine 1. ASSESSMENT: 1. Exacerbation of chronic obstructive lung disease. 2. Bilateral pneumonia. 3. Fatty liver. 4. Uncontrolled diabetes mellitus. 5. Systemic hypertension. RECOMMENDATIONS: Continue Cardizem mg once a day, Rocephin at 1 g daily, Cozaar at 100 mg once a day, aspirin 81 mg once a day, methadone 120 mg once a day. I will repeat amylase and lipase levels. Most recent lipase was on 07/11/2018 and was within normal limit. Johnny Drake MD
--- NOTE | 2018-07-17 22:30 | PN ---
DATE: 07/17/2018 ENDO FOLLOWUP NOTE LOCATION: Room 669 This is a 58-year-old female with recent uncontrolled type 2 insulin requiring diabetes, presenting here with acute exacerbation of COPD and is now being followed closely for metabolic management. Her glycemic levels are fluctuating, but much improved as noted overnight with glucose levels ranging from 159 to 199 mg/dL. It was 257 at bedtime last night. Her latest chemistry showed a BUN of 30, sodium 140, potassium 4.4, chloride 96, CO2 36, glucose 196, and creatinine 1.0. At this time, we will continue the same basal and bolus insulin regimen to allow for dose equilibration and keep her on the Levemir given as 20 units subcu at bedtime daily as ordered. We will continue the premix insulin regimen with NovoLog 70/30 given as 30 units before breakfast and 24 units before dinner as ordered. We will continue also the low dose correction scale using NovoLog insulin as given. We will titrate incremental as indicated to optimize metabolic control. We will follow and advise accordingly. Tiny Camarena MD
[2018-07-17] MEDS: Insulin Detemir 100 units/ml Vial (Levemir) SC SCH (22:50)
[2018-07-18] MEDS: Acetylcysteine 20% Inhal Soln (4ml) INH SCH ×3 (01:51→13:25)
[2018-07-18] MEDS: Albuterol-Ipratrop 3 mg / 0.5 (3 ml) UD INH SCH ×3 (02:00→13:25)
--- NOTE | 2018-07-18 04:18 | PN ---
DATE: 07/17/2018 SUBJECTIVE: The patient is less short of breath, less cough, less wheezing. No fever. She is on antibiotics. PHYSICAL EXAMINATION: VITAL SIGNS: BP 121/85, pulse 72, respiratory rate 20, temperature 98.4. LUNGS: Decreased air entry. Positive rhonchi. CARDIOVASCULAR SYSTEM: S1 and S2, regular. ABDOMEN: Soft. ASSESSMENT: 1. Acute bronchitis. 2. Chronic obstructive pulmonary disease. 3. Diabetes. 4. Hypertension. PLAN: Continue current medication. Monitor the patient. Fernando Godinez MD
[2018-07-18] MEDS: (Novolog) Insulin Aspart, Recombinant 100 u/ml 10 ml vial SC SCH ×2 (07:33→12:39)
[2018-07-18 08:12] VITALS: BP 135/87; PULSE 85; TEMP 98.2
[2018-07-18] MEDS: (Novolog Mix 70/30) Insulin Aspart/Insulin Aspar 100 units/ml SC SCH (08:40)
[2018-07-18] MEDS: Pantoprazole 40 mg EC Tab PO SCH (09:25)
[2018-07-18] MEDS: Methadone 40 mg Tab PO SCH (09:25)
[2018-07-18] MEDS: diltiaZEM 180 mg/24 Hours CD Cap PO SCH (09:26)
[2018-07-18] MEDS: Enoxaparin 40 mg Syringe SC SCH (09:26)
[2018-07-18] MEDS: Benzocaine/Menthol (Cepacol) Lozenge MT SCH (09:26)
--- NOTE | 2018-07-18 11:26 | CP.PCM.PN ---
Subjective - Date & Time of Evaluation Date of Evaluation: 07/18/18 Time of Evaluation: 07:30 - Subjective Subjective: patient seen and examined Lying comfortably in no acute distres Cough and shortness of breath much improved Afebrile Stable to be discharged Follow up in the office Objective - Vital Signs/Intake and Output Vital Signs (last 24 hours): Temp Pulse Resp BP Pulse Ox 98.2 F 85 20 135/87 96 07/18/18 08:11 07/18/18 08:11 07/18/18 08:11 07/18/18 08:11 07/18/18 08:11 - Medications Medications: Current Medications Acetaminophen (Tylenol 325mg Tab) 650 mg PO Q6 PRN PRN Reason: Pain, moderate (4-7) Last Admin: 07/12/18 06:59 Dose: 650 mg Acetylcysteine (Acetylcysteine 20%) 4 ml INH RQ6 [facility] Last Admin: 07/18/18 07:26 Dose: 4 ml Albuterol/Ipratropium (Duoneb 3 Mg/0.5 Mg (3 Ml) Ud) 3 ml INH RQ6 [facility] Last Admin: 07/18/18 07:26 Dose: 3 ml Aspirin (Ecotrin) 81 mg PO DAILY [facility] Last Admin: 07/18/18 09:26 Dose: 81 mg Benzocaine/Menthol (Cepacol Sore Throat) 1 michelle MT QID [facility] Last Admin: 07/18/18 09:26 Dose: 1 michelle Dextrose (Dextrose 50% Inj) 0 ml IV STAT PRN; Protocol PRN Reason: Hypoglycemia Protocol Dextrose (Glutose 15) 0 gm PO ONCE PRN; Protocol PRN Reason: Hypoglycemia Protocol Diltiazem HCl (Cardizem Cd) 180 mg PO DAILY [facility] Last Admin: 07/18/18 09:26 Dose: 180 mg Enoxaparin Sodium (Lovenox) 40 mg SC DAILY [facility] Last Admin: 07/18/18 09:26 Dose: 40 mg Glucagon (Glucagen Diagnostic Kit) 0 mg IM STAT PRN; Protocol PRN Reason: Hypoglycemia Protocol Ceftriaxone Sodium 1 gm/ (Sodium Chloride) 100 mls @ 100 mls/hr IVPB DAILY [facility] PRN Reason: Protocol Last Admin: 07/18/18 09:24 Dose: 100 mls/hr Insulin Aspart (Novolog) 0 unit SC ACHS [facility] PRN Reason: Protocol Last Admin: 07/18/18 07:33 Dose: Not Given Insulin Aspart (Novolog Mix 70/30 (70/30 Units/Ml)) 30 units SC ACB [facility] Last Admin: 07/18/18 08:40 Dose: 30 u Insulin Aspart (Novolog Mix 70/30 (70/30 Units/Ml)) 24 units SC ACD [facility] Last Admin: 07/17/18 17:30 Dose: 24 units Insulin Detemir (Levemir) 20 unit SC HS [facility] Last Admin: 07/17/18 22:50 Dose: 20 u Lactulose (Enulose) 20 gm PO HS [facility] Last Admin: 07/17/18 22:52 Dose: Not Given Losartan Potassium (Cozaar) 100 mg PO DAILY [facility] Last Admin: 07/18/18 09:25 Dose: 100 mg Methadone HCl (Methadose) 120 mg PO DAILY [facility] Last Admin: 07/18/18 09:25 Dose: 120 mg Nitroglycerin (Nitro-Bid 2% Oint) 1 ea TOP Q6 PRN PRN Reason: Hypertension Last Admin: 07/14/18 00:29 Dose: 1 ea Pantoprazole Sodium (Protonix Ec Tab) 20 mg PO DAILY [facility] Last Admin: 07/18/18 09:25 Dose: 20 mg - Labs Labs: 07/17/18 07:37 07/17/18 07:37 PT 11.0 SECONDS (9.7-12.2) 07/12/18 17:19 INR 1.0 07/12/18 17:19 APTT 32 SECONDS (21-34) 07/12/18 17:19 Assessment and Plan (1) COPD exacerbation Status: Acute (2) SANTY (obstructive sleep apnea) Status: Acute
--- NOTE | 2018-07-18 12:03 | CP.PCM.PN ---
Subjective - Date & Time of Evaluation Date of Evaluation: 07/18/18 Time of Evaluation: 12:03 - Subjective Subjective: -FOLLOW UP WITH DR. PASTRANA IN THE OFFICE WITHIN 5-7 DAYS--CALL FOR APPT TIME. -FOLLOW UP WITH DR. PYLE (DOCTOR FOR DIABETES) IN THE OFFICE WITHIN 7-10 DAYS-- CALL FOR APPT TIME. -CONTINUE HOME MEDICATIONS USUAL; PLEASE NOTE CHANGES MADE TO YOUR INSULIN: STOP TAKING HUMALOG 75/25. -YOU HAVE BEEN PRESCRIBED: 1) PREDNISONE 20 MG ONCE A DAY FOR 5 DAYS. 2) COUGH SYRUP. 3) REFILL FOR YOUR NEBULIZER MEDICINE, ALBUTEROL. 4) INSULIN 70/30---TAKE 30 UNITS BEFORE BREAKFAST; TAKE 24 UNITS BEFORE DINNER 5) LEVEMIR (THIS IS A LONG LASTING INSULIN)---TAKE 24 UNITS AT BEDTIME. -FOR FURTHER QUESTIONS OR CONCERNS, CONTACT DR. PASTRANA. Objective - Vital Signs/Intake and Output Vital Signs (last 24 hours): Temp Pulse Resp BP Pulse Ox 98.2 F 85 20 135/87 96 07/18/18 08:11 07/18/18 08:11 07/18/18 08:11 07/18/18 08:11 07/18/18 08:11 - Medications Medications: Current Medications Acetaminophen (Tylenol 325mg Tab) 650 mg PO Q6 PRN PRN Reason: Pain, moderate (4-7) Last Admin: 07/12/18 06:59 Dose: 650 mg Acetylcysteine (Acetylcysteine 20%) 4 ml INH RQ6 [facility] Last Admin: 07/18/18 07:26 Dose: 4 ml Albuterol/Ipratropium (Duoneb 3 Mg/0.5 Mg (3 Ml) Ud) 3 ml INH RQ6 [facility] Last Admin: 07/18/18 07:26 Dose: 3 ml Aspirin (Ecotrin) 81 mg PO DAILY [facility] Last Admin: 07/18/18 09:26 Dose: 81 mg Benzocaine/Menthol (Cepacol Sore Throat) 1 michelle MT QID [facility] Last Admin: 07/18/18 09:26 Dose: 1 michelle Dextrose (Dextrose 50% Inj) 0 ml IV STAT PRN; Protocol PRN Reason: Hypoglycemia Protocol Dextrose (Glutose 15) 0 gm PO ONCE PRN; Protocol PRN Reason: Hypoglycemia Protocol Diltiazem HCl (Cardizem Cd) 180 mg PO DAILY [facility] Last Admin: 07/18/18 09:26 Dose: 180 mg Enoxaparin Sodium (Lovenox) 40 mg SC DAILY [facility] Last Admin: 07/18/18 09:26 Dose: 40 mg Glucagon (Glucagen Diagnostic Kit) 0 mg IM STAT PRN; Protocol PRN Reason: Hypoglycemia Protocol Ceftriaxone Sodium 1 gm/ (Sodium Chloride) 100 mls @ 100 mls/hr IVPB DAILY [facility] PRN Reason: Protocol Last Admin: 07/18/18 09:24 Dose: 100 mls/hr Insulin Aspart (Novolog) 0 unit SC ACHS [facility] PRN Reason: Protocol Last Admin: 07/18/18 07:33 Dose: Not Given Insulin Aspart (Novolog Mix 70/30 (70/30 Units/Ml)) 30 units SC ACB [facility] Last Admin: 07/18/18 08:40 Dose: 30 u Insulin Aspart (Novolog Mix 70/30 (70/30 Units/Ml)) 24 units SC ACD [facility] Last Admin: 07/17/18 17:30 Dose: 24 units Insulin Detemir (Levemir) 20 unit SC HS [facility] Last Admin: 07/17/18 22:50 Dose: 20 u Lactulose (Enulose) 20 gm PO HS [facility] Last Admin: 07/17/18 22:52 Dose: Not Given Losartan Potassium (Cozaar) 100 mg PO DAILY [facility] Last Admin: 07/18/18 09:25 Dose: 100 mg Methadone HCl (Methadose) 120 mg PO DAILY [facility] Last Admin: 07/18/18 09:25 Dose: 120 mg Nitroglycerin (Nitro-Bid 2% Oint) 1 ea TOP Q6 PRN PRN Reason: Hypertension Last Admin: 07/14/18 00:29 Dose: 1 ea Pantoprazole Sodium (Protonix Ec Tab) 20 mg PO DAILY [facility] Last Admin: 07/18/18 09:25 Dose: 20 mg - Labs Labs: 07/17/18 07:37 07/17/18 07:37 PT 11.0 SECONDS (9.7-12.2) 07/12/18 17:19 INR 1.0 07/12/18 17:19 APTT 32 SECONDS (21-34) 07/12/18 17:19
--- NOTE | 2018-07-18 18:35 | PN ---
DATE: 07/18/2018 SUBJECTIVE: The patient's shortness of breath has improved. She is experiencing dry cough. No retrosternal chest pain. PHYSICAL EXAMINATION: VITAL SIGNS: Blood pressure 135/87, heart rate 85, temperature 98.2, respirations 20. HEENT: Normocephalic. CHEST: Minimal rhonchi. HEART: S1 and S2 regular. ABDOMEN: Soft. EXTREMITIES: Trace leg edema. LABORATORY DATA: Today's blood sugars are 203 and 129 respectively. ASSESSMENT: 1. Bilateral pneumonia. 2. Exacerbation of chronic obstructive lung disease. 3. Systemic hypertension. 4. Uncontrolled diabetes mellitus. 5. Fatty liver. 6. Mild pulmonary hypertension. 7. Diastolic left ventricular dysfunction. RECOMMENDATIONS: Continue current Cardizem CD at 180 mg once a day, IV Rocephin at 1 g daily, Cozaar 100 mg once a day, aspirin 81 mg once a day, Lovenox 40 mg subcutaneously daily. Johnny Drake MD
--- NOTE | 2018-07-18 19:13 | PN ---
DATE: 07/18/2018 ENDO FOLLOWUP NOTE LOCATION: In room 669. SUBJECTIVE: This is a 58-year-old female with recent uncontrolled type 2 insulin-requiring diabetes, presenting here with acute exacerbation of COPD and supervening hyperglycemic accelerations with the initiation of steroid therapy as given. Her glycemic levels are fluctuating, but improved and the glucose values overnight have shown levels ranging from 129 to 176 and 203 mg/dL. LABORATORY DATA: Her latest chemistry showed a BUN of 30, sodium 140, potassium 4.4, chloride 96, CO2 of 36, glucose 196, and creatinine 1. ASSESSMENT AND PLAN OF MANAGEMENT: So at this time, we will modify the basal insulin and increase the Levemir to 24 units subcutaneously at bedtime daily to start tonight. We will continue the premixed insulin regimen given as NovoLog 70/30 at 30 units before breakfast and 24 units before dinner to start today. We will continue the low-dose correction scale using the NovoLog insulin as given. We will obtain serial chemistries and supplement accordingly as needed. We will follow. Tiny Camarena MD
--- NOTE | 2018-07-18 21:22 | CP.PCM.DIS ---
Provider - Provider Date of Admission: 07/11/18 17:32 Attending physician: Fernando Godinez MD Hospital Course - Lab Results Lab Results: Most Recent Lab Values WBC 7.0 K/uL (4.8-10.8) 07/17/18 07:37 RBC 5.23 Mil/uL (3.80-5.20) H 07/17/18 07:37 Hgb 12.2 g/dL (11.0-16.0) 07/17/18 07:37 Hct 36.6 % (34.0-47.0) 07/17/18 07:37 MCV 70.0 fL (81.0-99.0) L 07/17/18 07:37 MCH 21.2 pg (27.0-31.0) L 07/17/18 07:37 MCHC 30.2 g/dL (33.0-37.0) L 07/17/18 07:37 RDW 16.9 % (11.5-14.5) H 07/17/18 07:37 Plt Count 261 K/uL (130-400) 07/17/18 07:37 MPV 9.1 fL (7.2-11.7) 07/17/18 07:37 Neut % (Auto) 57.3 % (50.0-75.0) 07/17/18 07:37 Lymph % (Auto) 30.1 % (20.0-40.0) 07/17/18 07:37 Moca % (Auto) 8.8 % (0.0-10.0) 07/17/18 07:37 Eos % (Auto) 3.4 % (0.0-4.0) 07/17/18 07:37 Baso % (Auto) 0.4 % (0.0-2.0) 07/17/18 07:37 Neut # (Auto) 4.0 K/uL (1.8-7.0) 07/17/18 07:37 Lymph # (Auto) 2.1 K/uL (1.0-4.3) 07/17/18 07:37 Moca # (Auto) 0.6 K/uL (0.0-0.8) 07/17/18 07:37 Eos # (Auto) 0.2 K/uL (0.0-0.7) 07/17/18 07:37 Baso # (Auto) 0.0 K/uL (0.0-0.2) 07/17/18 07:37 Differential Comment 07/15/18 07:28 PT 11.0 SECONDS (9.7-12.2) 07/12/18 17:19 INR 1.0 07/12/18 17:19 APTT 32 SECONDS (21-34) 07/12/18 17:19 Sodium 140 mmol/L (132-148) 07/17/18 07:37 Potassium 4.4 mmol/L (3.6-5.2) 07/17/18 07:37 Chloride 96 mmol/L (98-107) L 07/17/18 07:37 Carbon Dioxide 36 mmol/L (22-30) H 07/17/18 07:37 Anion Gap 12 (10-20) 07/17/18 07:37 BUN 30 mg/dL (7-17) H 07/17/18 07:37 Creatinine 1.0 mg/dL (0.7-1.2) 07/17/18 07:37 Est GFR ( Amer) > 60 07/17/18 07:37 Est GFR (Non-Af Amer) 57 07/17/18 07:37 POC Glucose (mg/dL) 129 mg/dL (65-110) H 07/18/18 11:43 Random Glucose 196 mg/dL (65-105) H 07/17/18 07:37 Hemoglobin A1c 9.5 % (4.2-6.5) H D 07/15/18 07:28 Calcium 8.7 mg/dl (8.6-10.4) 07/17/18 07:37 Phosphorus 3.9 mg/dL (2.5-4.5) 07/15/18 07:28 Magnesium 2.1 mg/dL (1.6-2.3) 07/15/18 07:28 Total Bilirubin 0.3 mg/dL (0.2-1.3) 07/17/18 07:37 AST 19 U/L (14-36) 07/17/18 07:37 ALT 29 U/L (9-52) 07/17/18 07:37 Alkaline Phosphatase 99 U/L (38-126) 07/17/18 07:37 Troponin I < 0.0120 ng/mL (0.00-0.120) 07/11/18 23:40 Total Protein 6.9 g/dL (6.3-8.3) 07/17/18 07:37 Albumin 3.5 g/dL (3.5-5.0) 07/17/18 07:37 Globulin 3.5 gm/dL (2.2-3.9) 07/17/18 07:37 Albumin/Globulin Ratio 1.0 (1.0-2.1) 07/17/18 07:37 Triglycerides 154 mg/dL (0-149) H 07/15/18 07:28 Cholesterol 224 mg/dL (0-199) H 07/15/18 07:28 LDL Cholesterol Direct 130 mg/dL (0-129) H 07/15/18 07:28 HDL Cholesterol 57 mg/dL (30-70) 07/15/18 07:28 Amylase 92 U/L (30-110) 07/17/18 16:42 Lipase 59 U/L (23-300) 07/17/18 16:42 Free T4 0.79 ng/dL (0.78-2.19) 07/15/18 16:50 Thyroxine (T4) 6.05 ug/dL (5.5-11.0) 07/15/18 16:50 TSH 3rd Generation 0.30 mIU/L (0.46-4.68) L 07/15/18 07:28 Urine Opiates Screen Negative (NEGATIVE) 07/12/18 22:46 Urine Methadone Screen Positive (NEGATIVE) H 07/12/18 22:46 Ur Barbiturates Screen Negative (NEGATIVE) 07/12/18 22:46 Ur Phencyclidine Scrn Negative (NEGATIVE) 07/12/18 22:46 Ur Amphetamines Screen Negative (NEGATIVE) 07/12/18 22:46 U Benzodiazepines Scrn Negative (NEGATIVE) 07/12/18 22:46 U Oth Cocaine Metabols Negative (NEGATIVE) 07/12/18 22:46 U Cannabinoids Screen Negative (NEGATIVE) 07/12/18 22:46 Discharge Exam - Head Exam Head Exam: ATRAUMATIC, NORMOCEPHALIC Discharge Plan - Discharge Medications Prescriptions: Benzocaine/Menthol [Cepacol Sore Throat] 1 michelle MT QID PRN #20 michelle PRN Reason: Sore Throat Prednisone [Deltasone] 20 mg PO DAILY #5 tablet Albuterol/Ipratropium [Duoneb 3 mg/0.5 mg (3 ml) UD] 3 ml INH RQ6 PRN #60 neb PRN Reason: Shortness Of Breath Insulin Detemir [Levemir] 24 unit SC HS #1 vial Insulin Aspart/Insulin Aspar [Novolog Mix 70/30 (70/30 units/ml)] 24 units SC ACD #1 vial Insulin Aspart/Insulin Aspar [Novolog Mix 70/30 (70/30 units/ml)] 30 units SC ACB #1 vial guaiFENesin [Robitussin] 100 mg PO QID PRN #8 oz PRN Reason: Cough - Follow Up Plan Condition: FAIR Disposition: HOME/ ROUTINE Instructions: Sleep Apnea (DC), Exacerbation of COPD (DC), Anoxic Brain Damage (DC), Risk Factors for COPD Additional Instructions: -FOLLOW UP WITH DR. GODINEZ IN THE OFFICE WITHIN 5-7 DAYS--CALL FOR APPT TIME. -FOLLOW UP WITH DR. PYLE (DOCTOR FOR DIABETES) IN THE OFFICE WITHIN 7-10 DAYS-- CALL FOR APPT TIME. -CONTINUE HOME MEDICATIONS USUAL; PLEASE NOTE CHANGES MADE TO YOUR INSULIN: STOP TAKING HUMALOG 75/25. -YOU HAVE BEEN PRESCRIBED: 1) PREDNISONE 20 MG ONCE A DAY FOR 5 DAYS. 2) COUGH SYRUP. 3) REFILL FOR YOUR NEBULIZER MEDICINE, ALBUTEROL. 4) INSULIN 70/30---TAKE 30 UNITS BEFORE BREAKFAST; TAKE 24 UNITS BEFORE DINNER 5) LEVEMIR (THIS IS A LONG LASTING INSULIN)---TAKE 24 UNITS AT BEDTIME. -FOR FURTHER QUESTIONS OR CONCERNS, CONTACT DR. GODINEZ. Referrals: Martín Zhang MD [Staff Provider] - Tiny Pyle MD [Medical Doctor] - Johnny Drake MD [Staff Provider] - Fernando Godinez MD [Staff Provider] -
--- NOTE | 2018-07-19 21:12 | DS ---
ADMISSION DIAGNOSIS: Shortness of breath. DISCHARGE DIAGNOSES: 1. Acute exacerbation of chronic obstructive pulmonary disease. 2. Hypertension. 3. Polysubstance abuse. 4. Type 2 diabetes. HISTORY OF PRESENT ILLNESS: This is 58-year-old female, morbidly obese with history of type 2 diabetes, hypertension, hyperlipemia, COPD, chronic heavy smoker, diabetic neuropathy, came in because of shortness of breath, cough, congestion. She was treated with Solu-Medrol, oxygen nebulizer treatment. She felt better. She is being discharged. Her chest x-ray was negative for any infiltrate. Echocardiogram was normal. PHYSICAL EXAMINATION: VITAL SIGNS: Blood pressure is 135/67, pulse 67, respiratory rate 20, and temperature 98.2. LUNGS: Decreased air entry. Positive rhonchi. CVS: S1, S2 regular. ABDOMEN: Soft. PLAN: Discharge the patient. Fernando Godinez MD
== END 2018-07-18 14:43 | disposition home or self-care (01) | DRG 541 ==
LOC: C.ER 13:15 → C.9E 16:03 → OBSVTOIN 16:14 → INTOOBSV 16:14 → C.9E 16:44 → C.6T 16:50 → OBSVTOIN 17:32
PROVIDERS: ADMIT Internal Medicine; ATTEND Internal Medicine
DX: J44.1 Chronic obstructive pulmonary disease with (acute) exacerbation (principal); I50.30 Unspecified diastolic (congestive) heart failure; R09.02 Hypoxemia; E11.649 Type 2 diabetes mellitus with hypoglycemia without coma; E11.40 Type 2 diabetes mellitus with diabetic neuropathy, unspecified; F11.20 Opioid dependence, uncomplicated; I11.0 Hypertensive heart disease with heart failure; E86.0 Dehydration; J44.0 Chronic obstructive pulmonary disease with (acute) lower respiratory infection; J20.9 Acute bronchitis, unspecified; G47.33 Obstructive sleep apnea (adult) (pediatric); E11.65 Type 2 diabetes mellitus with hyperglycemia; E66.01 Morbid (severe) obesity due to excess calories; E78.00 Pure hypercholesterolemia, unspecified; I27.20 Pulmonary hypertension, unspecified; K76.0 Fatty (change of) liver, not elsewhere classified; K59.00 Constipation, unspecified; Z79.4 Long term (current) use of insulin; Z99.81 Dependence on supplemental oxygen; Z87.891 Personal history of nicotine dependence; Z86.73 Personal history of transient ischemic attack (TIA), and cerebral infarction without residual deficits; Z68.42 Body mass index [BMI] 45.0-49.9, adult

== ENCOUNTER 2018-09-02 17:05 | Inpatient (IN) | payer MEDICAID ==
[2018-09-02 17:05] VITALS: BMI 42.7
--- NOTE | 2018-09-02 18:32 | C.PDOC ---
History Of Present Illness 58 year old female, whose PMHx includes Diabetes, Hypertension, CAD, High cholesterol, and COPD, presents to the ED for evaluation of bilateral leg swelling which began around 4 days ago. Patient was evaluated in her PMD's office today and underwent labwork which indicated that patient has elevated D- dimer. Patient was referred to the ED for evaluation to rule out PE and DVT. Patient denies fever, chills, chest pain, vomiting, or recent trauma. PMD: Dr. Virgilio Carr Time Seen by Provider: 09/02/18 18:12 Chief Complaint (Nursing): Lower Extremity Problem/Injury History Per: Patient History/Exam Limitations: no limitations Onset/Duration Of Symptoms: Days (4) Current Symptoms Are (Timing): Still Present Additional History Per: Patient - Knee Description Of Injury: Fell. denies: Struck With Object, Struck Against Object - Ankle/Foot Description Of Injury: denies: Fell, Struck With Object, Struck Against Object Past Medical History Reviewed: Historical Data, Nursing Documentation, Vital Signs Vital Signs: Last Vital Signs Temp 98.5 F 09/02/18 17:22 Pulse 82 09/02/18 17:22 Resp 20 09/02/18 17:22 BP 117/78 09/02/18 17:22 Pulse Ox 92 L 09/02/18 17:22 - Medical History PMH: Anxiety (NO MED), Arthritis, Asthma, Bronchitis, CHF, COPD (USE OF BIPAP HOME O2), Diabetes, HTN, Hypercholesterolemia, Migraine Denies: Chronic Kidney Disease Surgical History: No Surg Hx - [facility] Procedures ASSISTANCE WITH RESPIRATORY VENTILATION, 24-96 HRS, CPAP (11/25/16) ASSISTANCE WITH RESPIRATORY VENTILATION, <24 HRS, CPAP (06/17/17) EXCISION OF L LOW LEG SUBCU/FASCIA, OPEN APPROACH (04/20/17) EXCISION OF LEFT LOWER LEG SKIN, EXTERNAL APPROACH (06/17/17) EXCISION OF LEFT LOWER LEG SKIN, EXTERNAL APPROACH, DIAGN (06/17/17) INSERTION OF INFUSION DEV INTO SUP VENA CAVA, PERC APPROACH (06/17/17) REPLACE L LOW LEG SKIN W NONAUT SUB, FULL THICK, LICENSED DIRECT ENTRY MIDWIFE (06/17/17) VENOUS CATHETERIZATION NEC (04/07/14) Family History: States: Unknown Family Hx - Social History Hx Tobacco Use: Yes Hx Alcohol Use: No Hx Substance Use: Yes - Immunization History Hx Tetanus Toxoid Vaccination: Yes Hx Influenza Vaccination: No Hx Pneumococcal Vaccination: Yes Review Of Systems Constitutional: Negative for: Fever, Chills Cardiovascular: Negative for: Chest Pain Gastrointestinal: Negative for: Vomiting Skin: Positive for: Other (swelling to bilateral legs ) Physical Exam - Physical Exam Additional Physical Exam Comments: Constitutional: No acute distress. Head: Normocephalic. Atraumatic. Eyes: PERRL. ENT: Moist mucous membranes. Neck: Supple. Cardiovascular: Regular rate. Radial pulse 2+ bilaterally. Chest: No tenderness. Respiratory: Clear to auscultation bilaterally. GI: Soft. Nontender. Back: No CVA tenderness. Musculoskeletal: Bilateral pitting edema to lower extremities. Skin: No rash. Neurologic: Alert, no focal deficit. ED Course And Treatment - Laboratory Results Result Diagrams: 09/02/18 18:39 09/02/18 18:39 O2 Sat by Pulse Oximetry: 92 Medical Decision Making Medical Decision Making: Impression: 58 year old female with bilateral leg swelling Plan: * bloodwork * CT Angio Chest * reassess and disposition Progress: Will order CT Angio Chest in the ED to rule out PE. Patient is informed that vascular study is closed for the day and is advised to return tomorrow morning for Doppler study of bilateral lower extremities. Dr. Carr states patient can follow up with him in his office tomorrow. CTA shows multifocal pneumonia. Patient states admitted to hospital less than 3 months ago. Started on HCAP antibiotics. Dr. Carr covered by hospitalist service. Dr. Florian accepts to service. Disposition - Disposition Disposition: HOSPITALIZED Disposition Time: 22:09 Condition: GUARDED Forms: [employer] (Slovak) - POA Core Measure Indicators: Pneumonia - Clinical Impression Clinical Impression: Multifocal pneumonia - Scribe Statement The provider has reviewed the documentation as recorded by the Scribe (Kathe Guerin) Provider Attestation: All medical record entries made by the Scribe were at my direction and personally dictated by me. I have reviewed the chart and agree that the record accurately reflects my personal performance of the history, physical exam, medical decision making, and the department course for this patient. I have also personally directed, reviewed, and agree with the discharge instructions and disposition.
[2018-09-02] MEDS ORDERED: Iodixanol 320 MG/ML 100 ML BOTTLE IV ONE (18:36)
[2018-09-02 18:50] LABS: BASO # 0.1 K/uL (0.0-0.2); BASO % 1.2 % (0.0-2.0); EOS # 0.5 K/uL (0.0-0.7); EOS % 5.9 % (0.0-4.0); HEMOGLOBIN 10.9 g/dL (11.0-16.0); LYMPH # 2.7 K/uL (1.0-4.3); LYMPH % 32.3 % (20.0-40.0); MEAN CORPUSCULAR HEMOGLOBIN 21.3 pg (27.0-31.0); MEAN CORPUSCULAR HGB CONC 30.8 g/dL (33.0-37.0); MEAN PLATELET VOLUME 9.4 fL (7.2-11.7); MONO # 0.7 K/uL (0.0-0.8); MONO % 8.1 % (0.0-10.0); NEUT # 4.4 K/uL (1.8-7.0); NEUT % 52.5 % (50.0-75.0); NRBC % 0.1 % (0.0-2.0); RBC 5.13 Mil/uL (3.80-5.20); RED CELL DISTRIBUTION WIDTH 17.1 % (11.5-14.5); WHITE BLOOD COUNT 8.4 K/uL (4.8-10.8)
[2018-09-02 18:56] LABS: BLOOD UREA NITROGEN 25 mg/dL (7-17); CALCIUM 8.6 mg/dl (8.6-10.4); GFR NON-AFRICAN AMERICAN 51
[2018-09-02] MEDS ORDERED: Azithromycin 500 MG in Sodium Chloride 0.9% 250 ML IVPB STA (22:21)
[2018-09-02] MEDS ORDERED: Piperacill/Tazo 4.5gm in Dex 4.5 GM/100 ML BAG IVPB STA (22:28)
[2018-09-02] MEDS ORDERED: Ciprofloxacin 400mg/200ml D5W 400 MG/200 ML BAG IVPB STA (22:28)
[2018-09-03] MEDS ORDERED: Ciprofloxacin 400mg/200ml D5W 400 MG/200 ML BAG IVPB ONE (00:05)
[2018-09-03] MEDS ORDERED: Vancomycin 1 GM 1 GM/250 ML BAG IVPB ONE (00:05)
[2018-09-03] MEDS ORDERED: Albuterol-Ipratrop 3 mg / 0.5 (3 ml) UD INH STA (01:54)
[2018-09-03] MEDS ORDERED: Ciprofloxacin 400mg/200ml D5W 400 MG/200 ML BAG IVPB STA (02:48)
[2018-09-03 03:08] LABS: CK-MB 1.08 ng/mL (0.0-3.38)
[2018-09-03] MEDS: MethylPREDNISolone 40 mg Vial IVP SCH ×4 (03:16→21:51)
[2018-09-03] MEDS: Piperacillin/Tazobact 3.375 GM in Sodium Chloride 100 ML IVPB SCH ×3 (03:16→18:27)
[2018-09-03] MEDS ORDERED: Ciprofloxacin 400mg/200ml D5W 400 MG/200 ML BAG IVPB SCH ×3 (03:45→08:00)
[2018-09-03] MEDS ORDERED: Albuterol-Ipratrop 3 mg / 0.5 (3 ml) UD INH SCH (04:00)
--- NOTE | 2018-09-03 06:59 | CP.PCM.HP ---
Addendum entered and electronically signed by Kain Cordova 09/03/18 07:43: 58 year old female with a PMHX: TIA, CVA 2011, Obesity,DM, HTN, HLD,asthma presents today with complaints, bilat Lower extremity pain (8/10)and swelling, onset 4 days ago Multifocal Pneumonia - CT: RML & LLL consolidations likely pneumonia, venous congestion, Non-sepcifc bilateral hilar adenopathy, cardiac silhouette, mild upper lobe emphysema - Initial temp 98.5, WBC: 8.6 - > Tmax 101.5 - Tylenol 650 mg Q6 PRN - Zosyn 3.375 mg Q8 - Ciprofloxacin 400 mg Q12 - F/u ID - Dr. Mg pinedo COPD Chronic - Duonebs Q6H - BIPAP @ nighttime - Methylprednisone 40mg Q8H - F/u Dr. Vicente Walls recs - F/u ABG - F/u echo Lower extremity edema R/o DVT, PE excluded per CT - L > R calf - F/u LE dopplers HTN Chronic - C/w home med: Diltiazem 180 mg PO daily Diabetes Meticulus Chronic - accuchecks ACHS - ISS - moderate - Hold home meds - F/u HgA1C Hyperlipidemia Chronic - Lipid panel in 07/2018 - WNL, will continue to monitor - F/u Lipid panel Polysubstance abuse disorder - on OP methadone - F/u psych - Dr. Omari pinedo Prophylasxis - GI: Pantoprazole 40mg PO daily - DVT: Heparin 5000 units Q12H SCDS contraindicated until DVT ruled out Original Note: <Kain Cordova - Last Filed: 09/03/18 07:24> History of Present Illness - History of Present Illness History of Present Illness: CC: B/L leg pain 58 year old female with a PMHX: TIA, CVA 2011, Obesity,DM, HTN, HLD,asthma presents today with complaints, bilat Lower extremity pain (8/10)and swelling, onset 4 days ago. Right LE pain greater than left LE Pain. She states that she saw her DR. Carr( PMD) this morning, and that the sent her over for a CT angiogram today. She reports dyspnea on exertion and states that she is short of breath after walking 10 feet or with walking up the stairs, which has been the same for the past several years. LE pain improved with advil and worse with standing for long periods of time. She also reports that she was admitted to [facility] Last month for PNA. She Denies recent travel, JOHN, fever, chills, CP, NVD, ABD pain, Urinary changes, LE weakness. Denies smoking and etoh use. ROS: Denies chest pain, JOHN, fever, chills, CP, NVD, ABD pain, Urinary changes, LE weakness PMD: Dr. Carr PMHx: TIA, CVA 2012, Obesity,DM, HTN, HLD,asthma Meds: Famotidine, Irbesartan - HCTZ, Diltiazem, Aspirin, Duonebs, Methadone Allergies: NKDA PSHx: , sebaceous cyst removal, skin graft SHx: Smoked 1 pack for 30+ years, previous heroine user (inhalation), previous cocaine user (smoke), on outpatient methadone Present on Admission - Present on Admission Any Indicators Present on Admission: No Review of Systems - Constitutional Constitutional: absent: Chills, Fever - EENT Eyes: absent: Blind Spots, Diplopia Nose/Mouth/Throat: absent: Dry Mouth - Cardiovascular Cardiovascular: Dyspnea on Exertion, Pedal Edema - Gastrointestinal Gastrointestinal: absent: Abdominal Pain, Diarrhea - Genitourinary Genitourinary: absent: Urinary Hesitance, Freq UTI - Integumentary Integumentary: Lesions. absent: Photosensitivity, Swelling - Neurological Neurological: absent: Dizziness, Vertigo - Psychiatric Psychiatric: absent: Anhedonia, Confusion, Depression Past Patient History - Infectious Disease Hx of Infectious Diseases: None - Past Medical History & Family History Past Medical History?: Yes - Past Social History Smoking Status: Never Smoked - CARDIAC Hx Cardiac Disorders: Yes Hx Congestive Heart Failure: No Hx Hypercholesterolemia: Yes Hx Hypertension: Yes - PULMONARY Hx Respiratory Disorders: Yes Hx Asthma: Yes Hx Bronchitis: Yes Hx Chronic Obstructive Pulmonary Disease (COPD): Yes (USE OF CIPAP HOME O2) - NEUROLOGICAL Hx Neurological Disorder: Yes Hx Migraine: Yes - HEENT Hx HEENT Problems: Yes Other/Comment: wears prescription eyeglasses - RENAL Hx Chronic Kidney Disease: No - ENDOCRINE/METABOLIC Hx Endocrine Disorders: Yes Hx Diabetes Mellitus Type 1: Yes - HEMATOLOGICAL/ONCOLOGICAL Hx Blood Disorders: No Hx Blood Transfusions: No Hx Blood Transfusion Reaction: No - INTEGUMENTARY Hx Dermatological Problems: No - MUSCULOSKELETAL/RHEUMATOLOGICAL Hx Musculoskeletal Disorders: Yes Hx Arthritis: Yes Hx Falls: No - GASTROINTESTINAL Hx Gastrointestinal Disorders: Yes Hx Constipation: Yes - GENITOURINARY/GYNECOLOGICAL Hx Genitourinary Disorders: No - PSYCHIATRIC Hx Psychophysiologic Disorder: Yes Hx Anxiety: Yes (NO MED) Hx Substance Use: Yes - SURGICAL HISTORY Hx Surgeries: Yes Hx Section: Yes Other/Comment: SKIN GRAFT bilat legs - ANESTHESIA Hx Anesthesia: Yes Hx Anesthesia Reactions: No Hx Malignant Hyperthermia: No Meds Allergies/Adverse Reactions: Allergies Allergy/AdvReac Type Severity Reaction Status Date / Time No Known Allergies Allergy Verified 09/02/18 17:36 Physical Exam - Constitutional Appears: Non-toxic, No Acute Distress - Head Exam Head Exam: ATRAUMATIC, NORMOCEPHALIC Additional comments: Scar from previous sebaceous cyst removal near occipital region of head - Eye Exam Eye Exam: EOMI, Normal appearance - ENT Exam ENT Exam: Mucous Membranes Moist - Respiratory Exam Respiratory Exam: Decreased Breath Sounds, Clear to Auscultation Bilateral. absent: Rales, Rhonchi, Wheezes - Cardiovascular Exam Cardiovascular Exam: +S1, +S2. absent: Systolic Murmur - GI/Abdominal Exam GI & Abdominal Exam: Normal Bowel Sounds, Soft. absent: Firm, Guarding - Extremities Exam Extremities exam: Positive for: calf tenderness, pedal edema, tenderness Additional comments: L > R calf, calf tenderness, multiple LE lesions/ ulcerations, dry, trace pedal edema - Back Exam Back exam: absent: CVA tenderness (L), CVA tenderness (R) - Neurological Exam Neurological exam: Alert, CN II-XII Intact, Oriented x3 - Psychiatric Exam Psychiatric exam: Normal Affect, Normal Mood - Skin Skin Exam: Dry, Intact, Normal Color, Warm Results - Vital Signs Recent Vital Signs: Last Vital Signs Temp 100.7 F H 09/03/18 06:08 Pulse 91 H 09/03/18 04:37 Resp 20 09/03/18 04:37 BP 105/66 09/03/18 04:37 Pulse Ox 96 09/03/18 04:37 - Labs Result Diagrams: 09/02/18 18:39 09/02/18 18:39 Labs: Laboratory Results - last 24 hr 09/02/18 09/02/1818 18:39 18:39 01:30 WBC 8.4 RBC 5.13 Hgb 10.9 L Hct 35.4 MCV 69.0 L MCH 21.3 L MCHC 30.8 L RDW 17.1 H Plt Count 202 MPV 9.4 Neut % (Auto) 52.5 Lymph % (Auto) 32.3 [place] % (Auto) 8.1 Eos % (Auto) 5.9 H Baso % (Auto) 1.2 Neut # (Auto) 4.4 Lymph # (Auto) 2.7 [place] # (Auto) 0.7 Eos # (Auto) 0.5 Baso # (Auto) 0.1 Sodium 142 Potassium 3.9 Chloride 98 Carbon Dioxide 39 H Anion Gap 9 L BUN 25 H Creatinine 1.1 Est GFR ( Amer) > 60 Est GFR (Non-Af Amer) 51 Random Glucose 103 Calcium 8.6 Total Creatine Kinase 112 CK-MB (Mass) 1.08 Troponin I < 0.0120 Assessment & Plan - Assessment and Plan (Free Text) Assessment: 58 year old female with a PMHX: TIA, CVA 2011, Obesity,DM, HTN, HLD,asthma presents today with complaints, bilat Lower extremity pain (810)and swelling, onset 4 days ago Pneumonia - CT: RML & LLL consolidations likely pneumonia, venous congestion, Non-sepcifc bilateral hilar adenopathy, cardiac silhouette, mild upper lobe emphysema - Initial temp 98.5, WBC: 8.6 - > Tmax 101.5 - Tylenol 650 mg Q6 PRN - Zosyn 3.375 mg Q8 - Ciprofloxacin 400 mg Q12 COPD Chronic - Duonebs Q6H - BIPAP @ nighttime - Methylprednisone 40mg Q8H Lower edema R/o DVT, PE excluded - L > R, F/u LE dopplers HTN Chronic - C/w home med: Diltiazem 180 mg PO daily Diabetes Meticulus Chronic - accuchecks ACHS - ISS - moderate - Hold home meds Hyperlipidemia Chronic - Lipid panel in 07/2018 - WNL, will continue to monitor Prophylasxis - GI: Pantoprazole 40mg PO daily - DVT: Heparin 5000 units Q12H SCDS contraindicated until DVT ruled out <Gabriele Florian - Last Filed: 09/04/18 06:38> Results - Vital Signs Recent Vital Signs: Last Vital Signs Temp 98.6 F 09/04/18 04:00 Pulse 76 09/04/18 04:00 Resp 20 09/04/18 04:00 BP 98/62 L 09/04/18 04:00 Pulse Ox 97 09/04/18 04:00 - Labs Result Diagrams: 09/03/18 07:44 09/03/18 07:44 Labs: Laboratory Results - last 24 hr 09/03/18 09/03/18 09/03/18 06:26 07:44 07:44 WBC 11.5 H RBC 5.30 H Hgb 11.0 Hct 37.2 MCV 70.2 L MCH 20.7 L MCHC 29.6 L RDW 16.8 H Plt Count 198 MPV 10.1 Puncture Site pCO2 pO2 HCO3 ABG pH ABG Total CO2 ABG O2 Saturation ABG Base Excess ABG Hemoglobin ABG Carboxyhemoglobin POC ABG HHb (Measured) ABG Methemoglobin Arik Test A-a O2 Difference Respiratory Index Hgb O2 Saturation Vent Mode FiO2 Inspiratory BiPAP Expiratory BiPAP Sodium 138 Potassium 3.8 Chloride 98 Carbon Dioxide 32 H Anion Gap 12 BUN 27 H Creatinine 1.6 H Est GFR ( Amer) 40 Est GFR (Non-Af Amer) 33 POC Glucose (mg/dL) 221 H Random Glucose 278 H Calcium 8.1 L Phosphorus 3.3 Magnesium 1.3 L Total Bilirubin 0.8 AST 20 ALT 21 Alkaline Phosphatase 98 NT-Pro-B Natriuret Pep 86.5 Total Protein 6.2 L Albumin 3.3 L Globulin 3.0 Albumin/Globulin Ratio 1.1 Procalcitonin Urine Opiates Screen Urine Methadone Screen Ur Barbiturates Screen Ur Phencyclidine Scrn Ur Amphetamines Screen U Benzodiazepines Scrn U Oth Cocaine Metabols U Cannabinoids Screen Ur L.pneumophila Ag 09/03/18 09/03/18 09/03/18 09:02 11:06 11:14 WBC RBC Hgb Hct MCV MCH MCHC RDW Plt Count MPV Puncture Site Lr pCO2 65 H pO2 87 HCO3 30.8 H ABG pH 7.34 L ABG Total CO2 37.1 H ABG O2 Saturation 97.7 ABG Base Excess 7.6 H ABG Hemoglobin 10.7 L ABG Carboxyhemoglobin 2.1 H POC ABG HHb (Measured) 2.2 ABG Methemoglobin 1.0 Arik Test Pos A-a O2 Difference 117.0 Respiratory Index 1.3 Hgb O2 Saturation 94.7 L Vent Mode Bipap FiO2 40.0 Inspiratory BiPAP 12 Expiratory BiPAP 5 Sodium Potassium Chloride Carbon Dioxide Anion Gap BUN Creatinine Est GFR ( Amer) Est GFR (Non-Af Amer) POC Glucose (mg/dL) 450 H* Random Glucose Calcium Phosphorus Magnesium Total Bilirubin AST ALT Alkaline Phosphatase NT-Pro-B Natriuret Pep Total Protein Albumin Globulin Albumin/Globulin Ratio Procalcitonin 21.74 H Urine Opiates Screen Urine Methadone Screen Ur Barbiturates Screen Ur Phencyclidine Scrn Ur Amphetamines Screen U Benzodiazepines Scrn U Oth Cocaine Metabols U Cannabinoids Screen Ur L.pneumophila Ag 09/03/18 09/03/18 15:27 21:41 WBC RBC Hgb Hct MCV MCH MCHC RDW Plt Count MPV Puncture Site pCO2 pO2 HCO3 ABG pH ABG Total CO2 ABG O2 Saturation ABG Base Excess ABG Hemoglobin ABG Carboxyhemoglobin POC ABG HHb (Measured) ABG Methemoglobin Arik Test A-a O2 Difference Respiratory Index Hgb O2 Saturation Vent Mode FiO2 Inspiratory BiPAP Expiratory BiPAP Sodium Potassium Chloride Carbon Dioxide Anion Gap BUN Creatinine Est GFR ( Amer) Est GFR (Non-Af Amer) POC Glucose (mg/dL) Random Glucose Calcium Phosphorus Magnesium Total Bilirubin AST ALT Alkaline Phosphatase NT-Pro-B Natriuret Pep Total Protein Albumin Globulin Albumin/Globulin Ratio Procalcitonin Urine Opiates Screen Negative Urine Methadone Screen Positive H Ur Barbiturates Screen Negative Ur Phencyclidine Scrn Negative Ur Amphetamines Screen Negative U Benzodiazepines Scrn Negative U Oth Cocaine Metabols Negative U Cannabinoids Screen Negative Ur L.pneumophila Ag Negative Assessment & Plan - Date & Time Date: 09/04/18 (I have seen and examined the patient. I agree with the findings and plan of care as documented by Dr. Cordova. Patient with multifocal pneumonia. COPD exacerbation. Zosyn and Cipro. Consult to ID and Pulm. Bipap. Nebs. Solumedrol. Monitor for signs and symptoms of sepsis. Monitor for acute changes.) Time: 06:37 Attending/Attestation - Attestation I have personally seen and examined this patient.: Yes I have fully participated in the care of the patient.: Yes I have reviewed all pertinent clinical information: Yes
[2018-09-03] MEDS ORDERED: Glucagon Recombinant 1 mg Inj IM PRN (07:13)
[2018-09-03] MEDS ORDERED: Dextrose 50% SYRINGE Inj (50 ml) IV PRN (07:13)
[2018-09-03] MEDS ORDERED: (Novolog Mix 70/30) Insulin Aspart/Insulin Aspar 100 units/ml SC SCH (07:30)
[2018-09-03 08:30] LABS: ALB/GLOB RATIO 1.1 (1.0-2.1); ALBUMIN 3.3 g/dL (3.5-5.0); CALCIUM 8.1 mg/dl (8.6-10.4)
[2018-09-03 08:38] LABS: MEAN CELL VOLUME 70.2 fL (81.0-99.0); MEAN CORPUSCULAR HEMOGLOBIN 20.7 pg (27.0-31.0); MEAN CORPUSCULAR HGB CONC 29.6 g/dL (33.0-37.0); MEAN PLATELET VOLUME 10.1 fL (7.2-11.7); PLATELET COUNT 198 K/uL (130-400); RED CELL DISTRIBUTION WIDTH 16.8 % (11.5-14.5); WHITE BLOOD COUNT 11.5 K/uL (4.8-10.8)
[2018-09-03 08:43] LABS: B-TYPE NATRIURETIC PEPTIDE 86.5 pg/mL (0-900)
[2018-09-03 09:08] LABS: ABG ALLEN TEST POS; ARTERIAL BLOOD GAS HCO3 30.8 mmol/L (21-28); ARTERIAL BLOOD GAS HEMOGLOBIN 10.7 g/dL (11.7-17.4); ARTERIAL BLOOD GAS O2 SAT 97.7 % (95-98); ARTERIAL BLOOD GAS PCO2 65 mm/Hg (35-45); ARTERIAL BLOOD GAS PH 7.34 (7.35-7.45); ARTERIAL BLOOD GAS PO2 87 mm/Hg (80-100); ARTERIAL BLOOD GAS TCO2 37.1 mmol/L (22-28)
[2018-09-03] MEDS ORDERED: Magnesium Sulfate 1 gm in D5W 1 GM/100 ML BAG IVPB ONE (09:15)
[2018-09-03] MEDS: diltiaZEM 180 mg/24 Hours CD Cap PO SCH (09:26)
[2018-09-03] MEDS: Pantoprazole 40 mg EC Tab PO SCH (09:26)
--- NOTE | 2018-09-03 09:31 | PCM.PSYCH ---
Initial Psychiatric Evaluation - Initial Psychiatric Evaluation Type of Admission: Voluntary Legal Status: Capacity Chief Complaint (in patient's own words): I m feeling anxious.' History of Present Illness and Precipitating Events: Patient is a 58 yr AAF with past medical history of TIA, CVA 2012, multifocal pneumonia, COPD, lower extremity edema, diabetes mellitus, and polysubstance abuse disorder was admitted for dyspnea on exertion on 09/02 and was consulted today by psychiatry due to her history of polysubstance abuse disorder for which she is receiving treatment in a methadone program at [facility]. Patient states that she currently receives 120 mg Methadone daily and has been in the methadone program and clean of heroin for 1 yr now. She states that when she used to consume drugs she sniffed up to 10 bags of heroin per day and smoked 5 bottles of crack cocaine 2 days/week. She reports irritability but denies any feelings of hopelessness and helplessness, poor sleep and poor appetite. She denies any auditory or visual hallucinations or any psychotic symptoms. She denies any other substance abuse. Psych hx: denies previous psychiatric history, but is in a methadone treatment program Social hx: Patient has lived with the father of her child and with her son for the last 30 years. The patient is eating well and denies alcohol use and tobacco use. She is not currently working and on disability. Past medical: DM, HTN, TIA, 2x CVA, asthma, multifocal PNA Allergies: denies Surgeries: 2 skin grafts, section, multiple sebaceous cyst removal Hospitalizations: Blood transfusion, PNA, b/l leg swelling Family hx: stroke, brain anyeurism in father and brother Meds: Methadone 120mg qD, Humalog 40 units Current Medications: Active Medications Generic Name Dose Route Start Last Admin Trade Name Freq PRN Reason Stop Dose Admin Acetaminophen 650 mg 09/03/18 04:52 09/03/18 05:08 Tylenol 325mg Tab PO 650 mg Q6 PRN Administration Fever >100.4 F Albuterol/Ipratropium 3 ml 09/03/18 06:51 Duoneb 3 Mg/0.5 Mg (3 Ml) Ud INH RQ6 PRN Shortness of Breath Aspirin 81 mg 09/03/18 10:00 09/03/18 09:26 Ecotrin PO 81 mg DAILY VIOLA Administration Dextrose 0 ml 09/03/18 07:13 Dextrose 50% Inj IV STAT PRN Hypoglycemia Protocol Protocol Dextrose 0 gm 10/24/18 07:13 Glutose 15 PO ONCE PRN Hypoglycemia Protocol Protocol Diltiazem HCl 180 mg 09/03/18 10:00 09/03/18 09:26 Cardizem Cd PO 180 mg DAILY VIOLA Administration Glucagon 0 mg 09/03/18 07:13 Glucagen Diagnostic Kit IM STAT PRN Hypoglycemia Protocol Protocol Heparin Sodium (Porcine) 5,000 units 09/03/18 10:00 09/03/18 09:27 Heparin SC 5,000 units Q12 VIOLA Administration Hydrochlorothiazide 12.5 mg 09/03/18 10:00 09/03/18 09:27 Microzide PO 12.5 mg DAILY VIOLA Administration Piperacillin Sod/Tazobactam 100 mls @ 200 mls/hr 09/03/18 03:00 09/03/18 03:16 Sod 3.375 gm/ Sodium Chloride IVPB 200 mls/hr Q8H VIOLA Administration Protocol Ciprofloxacin 400 mg in 200 mls @ 133 mls/hr 09/03/18 04:15 Cipro 400mg/200ml Dsw IVPB Q12H VIOLA Protocol Dextrose 1,000 mls @ 0 mls/hr 09/03/18 07:13 Dextrose 5% In Water 1000 Ml IV .Q0M PRN Hypoglycemia Protocol Protocol Per Protocol Magnesium Sulfate/Dextrose 1 gm in 100 mls @ 200 mls/hr 09/03/18 09:15 Magnesium Sulfate 1 Gm/100 Ml D5w IVPB 09/03/18 09:44 ONCE ONE Influenza Virus Vaccine 60 mcg 09/05/18 14:00 Fluzone Quad [id number] IM 09/05/18 14:01 .ONCE ONE Insulin Aspart 0 units 09/03/18 07:30 09/03/18 08:40 Novolog Mix 70/30 (70/30 Units/Ml) SC Not Given ACHS VIOLA Protocol Insulin Human Isoph/Insulin Regular 4 units 09/03/18 08:53 Novolin 70/30 (70/30 Units/Ml) 10 Ml SC 09/03/18 08:54 STAT STA Losartan Potassium 100 mg 09/03/18 10:00 09/03/18 09:25 Cozaar PO 100 mg DAILY VIOLA Administration Methylprednisolone 40 mg 09/03/18 03:00 09/03/18 06:05 Solu-Medrol IVP 40 mg Q8 VIOLA Administration Ondansetron HCl 4 mg 09/03/18 02:45 09/03/18 02:49 Zofran Inj IVP 4 mg Q8H PRN Administration Nausea/Vomiting Pantoprazole Sodium 40 mg 09/03/18 10:00 09/03/18 09:26 Protonix Ec Tab PO 40 mg DAILY VIOLA Administration Past Psychiatric History - Past Psychiatric History Previous Treatment History: None Pertinent Medical Hx (Current Medical&Sleep Prob, Allergies): Allergies Allergy/AdvReac Type Severity Reaction Status Date / Time No Known Allergies Allergy Verified 09/02/18 17:36 Aspirin [Ecotrin] 81 mg PO DAILY 07/11/18 Diltiazem HCl [Diltiazem 24Hr Cd] 180 mg PO DAILY 07/11/18 Exenatide Microspheres [Bydureon] 2 mg SC QWK 07/11/18 Famotidine 20 mg PO DAILY 07/11/18 Irbesartan/Hydrochlorothiazide [Irbesartan-Hctz 300-12.5 mg Tb] 1 tab PO DAILY 07/11/18 Methadone [Methadose] 120 mg PO DAILY 07/11/18 Albuterol/Ipratropium [Duoneb 3 mg/0.5 mg (3 ml) UD] 3 ml INH RQ6 PRN #60 neb 07/18/18 Insulin Detemir [Levemir] 24 unit SC HS #1 vial 07/18/18 Prednisone [Deltasone] 20 mg PO DAILY #5 tablet 07/18/18 Insulin Aspart/Insulin Aspar [Novolog Mix 70/30 (70/30 units/ml)] 30 units SC ACD 09/02/18 Insulin Aspart/Insulin Aspar [Novolog Mix 70/30 (70/30 units/ml)] 40 units SC ACB 09/02/18 Insulin Glargine, Recombina [Lantus] 5 unit SQ HS 09/02/18 Review of Systems - Review of Systems All systems: reviewed and no additional remarkable complaints except - Psychiatric Psychiatric: Anxiety, Irritability. absent: Suicidal Ideation Mental Status Examination - Personal Presentation Personal Presentation: Looks stated age - Affect Affect: Constricted - Motor Activity Motor Activity: Calm - Reliability in Providing Information Reliability in Providing Information: Fair - Speech Speech: Organized - Mood Mood: Anxious - Formal Thought Process Formal Thought Process: No Impairment - Obsessions/Compulsions Obsessions: No Compulsions: No - Cognitive Functions Orientation: Person, Place, Situation, Time Sensorium: Alert Attention/Concentration: Attentive Abstract Thinking: [place] Estimate of Intelligence: Below average Judgement: Imparied, as evidence by: Poor judgement, Intact, as evidence by: Insight regarding need for hospitalization - Risk Risk: Diminished functioning - Limitations Limitations: Living alone DSM 5 DX - DSM 5 DSM 5 Diagnosis: Opiate use disorder severe in persistent remission on agonist therapy - Recommended/Plan of Treatment Treatment Recommendations and Plan of Treatment: Supportive therapy Psychoeducation Methadone Hydroxyzine 25 mg by mouth every 6 hours when necessary Patient psychiatrically stable and clear for discharge. - Smoking Cessation Smoking Cessation Initiated: No
[2018-09-03] MEDS ORDERED: (Novolin R) Insulin Human Regular 100 units/ml vial SC STA (10:27)
[2018-09-03] MEDS ORDERED: Methadone 40 mg Tab PO STA (10:29)
--- NOTE | 2018-09-03 11:12 | CT ---
Date of service: 09/02/2018 PROCEDURE: CT Chest with contrast (Pulmonary Angiogram) HISTORY: dyspnea, r/o PE COMPARISON: Chest CT with contrast 03/18/2018. TECHNIQUE: Axial computed tomography images were obtained of the chest in the pulmonary arterial phase of enhancement. Coronal and sagittal reformatted images were created and reviewed. Intravenous contrast dose: Visipaque 320, 100 cc Radiation dose: Total exam DLP = 520.74 mGy-cm. This CT exam was performed using one or more of the following dose reduction techniques: Automated exposure control, adjustment of the mA and/or kV according to patient size, and/or use of iterative reconstruction technique. FINDINGS: PULMONARY ARTERIES: Unremarkable. No pulmonary embolism. AORTA: No acute findings. No thoracic aortic aneurysm. No aortic atherosclerotic calcification or mural plaque present. LUNGS: No definitive pulmonary mass is seen in the central airways are clear however bilateral lower lobe linear atelectasis identified bilaterally and underlying infiltrates are not excluded bilaterally. Scattered ground-glass opacity seen in the bilateral upper lobes. PLEURAL SPACES: Unremarkable. No effusion or pneumothorax. HEART: Prominent cardiac silhouette reiterated. No pulmonary vascular congestion. No significant pericardial effusion. LYMPH NODES: There is mild but persistent mediastinal lymphadenopathy including 1.0 cm transverse dimension pretracheal lymph node inferiorly 1.6 cm transverse diameter right hilar lymph node and likely 1.3 cm subcarinal lymph node again evident. BONES, CHEST WALL: Unremarkable. No fracture or destructive lesion OTHER FINDINGS: Unremarkable. IMPRESSION: 1. No interval pulmonary embolus appreciated. 2. Persistent mediastinal and right hilar lymphadenopathy, but without interval increase in size in distribution. 3. Bilateral lower lobe atelectasis and possible infiltrates are identified. Concordant preliminary report from [facility], 09/02/2018.
[2018-09-03] MEDS: (Novolin R) Insulin Human Regular 100 units/ml vial SC SCH ×3 (11:42→21:52)
--- NOTE | 2018-09-03 13:03 | VASCLAB ---
Date of service: 09/03/2018 PROCEDURE: Lower Extremity Venous Duplex Exam. HISTORY: Lower extremity edema. PRIORS: None. TECHNIQUE: Bilateral common femoral, femoral, popliteal and posterior tibial, peroneal and great saphenous veins were evaluated. Flow was assessed with color Doppler, compressibility, assessment of phasic flow and augmentation response. Report prepared by Manfred England, LEN, RVT FINDINGS: RIGHT: 1. Common Femoral Vein: 1.1. Compressibility - Fully compressible: Thrombus - None : Flow - Phasic: Augmentation -Normal: Reflux - None. 2. Femoral Vein: 2.1. Compressibility - Fully compressible: Thrombus - None : Flow - Phasic: Augmentation -Normal: Reflux - None. 3. Popliteal Vein: 3.1. Compressibility - Fully compressible: Thrombus - None : Flow - Phasic: Augmentation -Normal: Reflux - None. 4. Posterior Tibial Vein: 4.1. Compressibility - Fully compressible: Thrombus - None: Flow - Phasic: Augmentation -Normal: Reflux - None. 5. Peroneal Vein: 5.1. Compressibility - Fully compressible: Thrombus - None: Flow - Phasic: Augmentation -Normal: Reflux - None. 6. Great Saphenous Vein: 6.1. Compressibility - Fully compressible: Thrombus - None: Flow - Phasic: Augmentation - Normal: Reflux - None. LEFT: 1. Common Femoral Vein: 1.1. Compressibility - Fully compressible: Thrombus - None: Flow - Phasic: Augmentation -Normal: Reflux - None. 2. Femoral Vein: 2.1. Compressibility - Fully compressible: Thrombus - None: Flow - Phasic: Augmentation -Normal: Reflux - None. 3. Popliteal Vein: 3.1. Compressibility - Fully compressible: Thrombus - None : Flow - Phasic: Augmentation -Normal: Reflux - None. 4. Posterior Tibial Vein: 5. Peroneal Vein: 6. Great Saphenous Vein: 6.1. Compressibility - Fully compressible: Thrombus - None: Flow - Phasic: Augmentation - Normal: Reflux - None. OTHER FINDINGS: Right: None significant. Left: Unable to visualize the left posterior tibial and peroneal veins due to swelling. IMPRESSION: Right: No evidence of deep or superficial vein thrombosis of the right lower extremity. Normal valve function noted of the right side. Left: No evidence of deep or superficial vein thrombosis of the left lower extremity, as visualized. Normal valve function noted of the left side.
[2018-09-03] MEDS: Albuterol-Ipratrop 3 mg / 0.5 (3 ml) UD INH PRN ×2 (13:59→19:38)
[2018-09-03 15:50] LABS: BARBITURATES, UR NEGATIVE (NEGATIVE); BENZODIAZEPINES, UR NEGATIVE (NEGATIVE); OPIATES, UR NEGATIVE (NEGATIVE); PHENCYCLIDINE, UR NEGATIVE (NEGATIVE)
--- NOTE | 2018-09-03 16:32 | CP.PCM.CON ---
History of Present Illness - History of Present Illness History of Present Illness: Patient is a 58 year old female with a PMHx of DM Type II, HTN, CAD, High Cholesterol, COPD, Bronchial Asthma who presents after having elevated D-dimer and bilateral leg swelling while seeing her PMD on Saturday. Patient reports the leg swelling started Wednesday 08/29 and was unable to make it into the office until Sunday 09/02. Patient does admit to SOB on exertion, wheezing, nonproductive cough and left arm numbness throughout the weekend. Admits to using nebulizer, CPAP machine at night and other medications without any improvement. Denies chest pain and palpitations. It is important to note that patient was hospitalized last month at [facility] for Pneumonia for 1 week and discharged with antibiotics and prednisone which she completed at home. However, patient reports she was SOB and coughing therefore returned to [facility] a week later and spent another 5 days inpatient on antibiotics. Chest CT 09/02 - No pulmonary embolus appreciated. Persistent mediastinal and right hilar lymphadenopathy, but without interval increase in size and distribution. Bilateral lower lobe atelectasis and possible infiltrates are identified. Scattered ground-glass opacity in bilateral upper lobes. Venous Duplex Lower Extremity Bilateral 09/03 - Right: No evidence of deep or superficial vein thrombosis. Left: No evidence of deep or superficial vein thrombosis PMHx: DM Type II, HTN, CAD, High Cholesterol, COPD, Bronchial Asthma Surgical Hx: Neck surgery for cyst removal, Cyst removal in upper arm bilateral, Skin graft in lower extremities bilaterally, X 1, Blood transfusion. Meds: Allergies: NKDA Fam Hx: Mother - denies. Father - head aneurysm. Brother - head aneurysm. Stroke in father's side of family. Social: Lives at home with son and son's father. Not currently working, states she is "disabled". Former smoker, quit 1 year ago, previous use of 1 ppd since age 24. 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 Denies alcohol us Review of Systems - Review of Systems All systems: reviewed and no additional remarkable complaints except (cough) Past Patient History - Infectious Disease Hx of Infectious Diseases: None - Past Medical History & Family History Past Medical History?: Yes - Past Social History Smoking Status: Never Smoked - CARDIAC Hx Cardiac Disorders: Yes Hx Congestive Heart Failure: No Hx Hypercholesterolemia: Yes Hx Hypertension: Yes - PULMONARY Hx Chronic Obstructive Pulmonary Disease (COPD): Yes (USE OF CIPAP HOME O2) - NEUROLOGICAL Hx Neurological Disorder: Yes Hx Migraine: Yes - HEENT Hx HEENT Problems: Yes Other/Comment: wears prescription eyeglasses - RENAL Hx Chronic Kidney Disease: No - ENDOCRINE/METABOLIC Hx Diabetes Mellitus Type 1: Yes - HEMATOLOGICAL/ONCOLOGICAL Hx Blood Disorders: No Hx Blood Transfusions: No Hx Blood Transfusion Reaction: No - INTEGUMENTARY Hx Dermatological Problems: No - MUSCULOSKELETAL/RHEUMATOLOGICAL Hx Arthritis: Yes - GASTROINTESTINAL Hx Gastrointestinal Disorders: Yes Hx Constipation: Yes - GENITOURINARY/GYNECOLOGICAL Hx Genitourinary Disorders: No - PSYCHIATRIC Hx Psychophysiologic Disorder: Yes Hx Anxiety: Yes (NO MED) Hx Substance Use: Yes - SURGICAL HISTORY Hx Surgeries: Yes Hx Section: Yes Other/Comment: SKIN GRAFT bilat legs - ANESTHESIA Hx Anesthesia: Yes Hx Anesthesia Reactions: No Hx Malignant Hyperthermia: No Meds Allergies/Adverse Reactions: Allergies Allergy/AdvReac Type Severity Reaction Status Date / Time No Known Allergies Allergy Verified 09/02/18 17:36 - Medications Medications: Current Medications Acetaminophen (Tylenol 325mg Tab) 650 mg PO Q6 PRN PRN Reason: Fever >100.4 F Last Admin: 09/03/18 05:08 Dose: 650 mg Albuterol/Ipratropium (Duoneb 3 Mg/0.5 Mg (3 Ml) Ud) 3 ml INH RQ6 PRN PRN Reason: Shortness of Breath Last Admin: 09/03/18 13:59 Dose: 3 ml Aspirin (Ecotrin) 81 mg PO DAILY [facility] Last Admin: 09/03/18 09:26 Dose: 81 mg Dextrose (Dextrose 50% Inj) 0 ml IV STAT PRN; Protocol PRN Reason: Hypoglycemia Protocol Dextrose (Glutose 15) 0 gm PO ONCE PRN; Protocol PRN Reason: Hypoglycemia Protocol Diltiazem HCl (Cardizem Cd) 180 mg PO DAILY [facility] Last Admin: 09/03/18 09:26 Dose: 180 mg Glucagon (Glucagen Diagnostic Kit) 0 mg IM STAT PRN; Protocol PRN Reason: Hypoglycemia Protocol Heparin Sodium (Porcine) (Heparin) 5,000 units SC Q12 [facility] Last Admin: 09/03/18 09:27 Dose: 5,000 units Hydrochlorothiazide (Microzide) 12.5 mg PO DAILY [facility] Last Admin: 09/03/18 09:27 Dose: 12.5 mg Piperacillin Sod/Tazobactam (Sod 3.375 gm/ Sodium Chloride) 100 mls @ 200 mls/hr IVPB Q8H VIOLA; Protocol Last Admin: 09/03/18 10:11 Dose: 200 mls/hr Ciprofloxacin (Cipro 400mg/200ml Dsw) 400 mg in 200 mls @ 133 mls/hr IVPB Q12H VIOLA; Protocol Dextrose (Dextrose 5% In Water 1000 Ml) 1,000 mls @ 0 mls/hr IV .Q0M PRN; Protocol PRN Reason: Hypoglycemia Protocol Influenza Virus Vaccine (Fluzone Quad [id number]) 60 mcg IM .ONCE ONE Stop: 09/05/18 14:01 Insulin Glargine (Lantus) 5 unit SC Q12 VIOLA Insulin Human Regular (Novolin R) 0 unit SC ACHS [facility]; Protocol Last Admin: 09/03/18 11:42 Dose: 10 units Losartan Potassium (Cozaar) 100 mg PO DAILY [facility] Last Admin: 09/03/18 09:25 Dose: 100 mg Methylprednisolone (Solu-Medrol) 40 mg IVP Q8 [facility] Last Admin: 09/03/18 15:15 Dose: 40 mg Ondansetron HCl (Zofran Inj) 4 mg IVP Q8H PRN PRN Reason: Nausea/Vomiting Last Admin: 09/03/18 02:49 Dose: 4 mg Pantoprazole Sodium (Protonix Ec Tab) 40 mg PO DAILY [facility] Last Admin: 09/03/18 09:26 Dose: 40 mg Physical Exam - Head Exam Head Exam: ATRAUMATIC, NORMOCEPHALIC - ENT Exam ENT Exam: Mucous Membranes Moist - Neck Exam Neck exam: Positive for: Normal Inspection - Respiratory Exam Respiratory Exam: Clear to Auscultation Bilateral - Cardiovascular Exam Cardiovascular Exam: REGULAR RHYTHM - GI/Abdominal Exam GI & Abdominal Exam: Normal Bowel Sounds - Extremities Exam Extremities exam: Positive for: pedal edema Results - Vital Signs Recent Vital Signs: Last Vital Signs Temp 98.4 F 09/03/18 15:10 Pulse 89 09/03/18 15:10 Resp 20 09/03/18 15:10 BP 103/72 09/03/18 15:10 Pulse Ox 93 L 09/03/18 15:10 - Labs Result Diagrams: 09/03/18 07:44 09/03/18 07:44 Labs: Laboratory Results - last 24 hr 09/02/18 09/02/18 09/03/18 18:39 18:39 01:30 WBC 8.4 RBC 5.13 Hgb 10.9 L Hct 35.4 MCV 69.0 L MCH 21.3 L MCHC 30.8 L RDW 17.1 H Plt Count 202 MPV 9.4 Neut % (Auto) 52.5 Lymph % (Auto) 32.3 Summers % (Auto) 8.1 Eos % (Auto) 5.9 H Baso % (Auto) 1.2 Neut # (Auto) 4.4 Lymph # (Auto) 2.7 Summers # (Auto) 0.7 Eos # (Auto) 0.5 Baso # (Auto) 0.1 Puncture Site pCO2 pO2 HCO3 ABG pH ABG Total CO2 ABG O2 Saturation ABG Base Excess ABG Hemoglobin ABG Carboxyhemoglobin POC ABG HHb (Measured) ABG Methemoglobin Arik Test A-a O2 Difference Respiratory Index Hgb O2 Saturation Vent Mode FiO2 Inspiratory BiPAP Expiratory BiPAP Sodium 142 Potassium 3.9 Chloride 98 Carbon Dioxide 39 H Anion Gap 9 L BUN 25 H Creatinine 1.1 Est GFR ( Amer) > 60 Est GFR (Non-Af Amer) 51 POC Glucose (mg/dL) Random Glucose 103 Calcium 8.6 Phosphorus Magnesium Total Bilirubin AST ALT Alkaline Phosphatase Total Creatine Kinase 112 CK-MB (Mass) 1.08 Troponin I < 0.0120 NT-Pro-B Natriuret Pep Total Protein Albumin Globulin Albumin/Globulin Ratio Urine Opiates Screen Urine Methadone Screen Ur Barbiturates Screen Ur Phencyclidine Scrn Ur Amphetamines Screen U Benzodiazepines Scrn U Oth Cocaine Metabols U Cannabinoids Screen 09/03/18 09/03/18 09/03/18 06:26 07:44 07:44 WBC 11.5 H RBC 5.30 H Hgb 11.0 Hct 37.2 MCV 70.2 L MCH 20.7 L MCHC 29.6 L RDW 16.8 H Plt Count 198 MPV 10.1 Neut % (Auto) Lymph % (Auto) Summers % (Auto) Eos % (Auto) Baso % (Auto) Neut # (Auto) Lymph # (Auto) Summers # (Auto) Eos # (Auto) Baso # (Auto) Puncture Site pCO2 pO2 HCO3 ABG pH ABG Total CO2 ABG O2 Saturation ABG Base Excess ABG Hemoglobin ABG Carboxyhemoglobin POC ABG HHb (Measured) ABG Methemoglobin Arik Test A-a O2 Difference Respiratory Index Hgb O2 Saturation Vent Mode FiO2 Inspiratory BiPAP Expiratory BiPAP Sodium 138 Potassium 3.8 Chloride 98 Carbon Dioxide 32 H Anion Gap 12 BUN 27 H Creatinine 1.6 H Est GFR ( Amer) 40 Est GFR (Non-Af Amer) 33 POC Glucose (mg/dL) 221 H Random Glucose 278 H Calcium 8.1 L Phosphorus 3.3 Magnesium 1.3 L Total Bilirubin 0.8 AST 20 ALT 21 Alkaline Phosphatase 98 Total Creatine Kinase CK-MB (Mass) Troponin I NT-Pro-B Natriuret Pep 86.5 Total Protein 6.2 L Albumin 3.3 L Globulin 3.0 Albumin/Globulin Ratio 1.1 Urine Opiates Screen Urine Methadone Screen Ur Barbiturates Screen Ur Phencyclidine Scrn Ur Amphetamines Screen U Benzodiazepines Scrn U Oth Cocaine Metabols U Cannabinoids Screen 09/03/18 09/03/18 09:02 15:27 WBC RBC Hgb Hct MCV MCH MCHC RDW Plt Count MPV Neut % (Auto) Lymph % (Auto) Summers % (Auto) Eos % (Auto) Baso % (Auto) Neut # (Auto) Lymph # (Auto) Summers # (Auto) Eos # (Auto) Baso # (Auto) Puncture Site Lr pCO2 65 H pO2 87 HCO3 30.8 H ABG pH 7.34 L ABG Total CO2 37.1 H ABG O2 Saturation 97.7 ABG Base Excess 7.6 H ABG Hemoglobin 10.7 L ABG Carboxyhemoglobin 2.1 H POC ABG HHb (Measured) 2.2 ABG Methemoglobin 1.0 Arik Test Pos A-a O2 Difference 117.0 Respiratory Index 1.3 Hgb O2 Saturation 94.7 L Vent Mode Bipap FiO2 40.0 Inspiratory BiPAP 12 Expiratory BiPAP 5 Sodium Potassium Chloride Carbon Dioxide Anion Gap BUN Creatinine Est GFR ( Amer) Est GFR (Non-Af Amer) POC Glucose (mg/dL) Random Glucose Calcium Phosphorus Magnesium Total Bilirubin AST ALT Alkaline Phosphatase Total Creatine Kinase CK-MB (Mass) Troponin I NT-Pro-B Natriuret Pep Total Protein Albumin Globulin Albumin/Globulin Ratio Urine Opiates Screen Negative Urine Methadone Screen Positive H Ur Barbiturates Screen Negative Ur Phencyclidine Scrn Negative Ur Amphetamines Screen Negative U Benzodiazepines Scrn Negative U Oth Cocaine Metabols Negative U Cannabinoids Screen Negative Assessment & Plan (1) COPD exacerbation Status: Acute Comment: continue nebulizer treatment and steroid. pt is on home oxygen (2) SANTY (obstructive sleep apnea) Status: Acute (3) Pneumonia Assessment and Plan: pneumonia versus atelectasis Continue antibiotics pro Calcitonin level Status: Acute
--- NOTE | 2018-09-03 17:45 | CP.PCM.PN ---
<Shira Diego - Last Filed: 09/03/18 17:45> Subjective - Date & Time of Evaluation Date of Evaluation: 09/03/18 Time of Evaluation: 17:42 - Subjective Subjective: Patient states she is feeling better. Denies shortness of breath. Still with bilateral calf pain. Objective - Vital Signs/Intake and Output Vital Signs (last 24 hours): Temp Pulse Resp BP Pulse Ox 98.4 F 91 H 20 103/72 93 L 09/03/18 15:10 09/03/18 16:00 09/03/18 15:10 09/03/18 15:10 09/03/18 15:10 Intake and Output: 09/03/18 09/03/18 06:59 18:59 Intake Total 370 480 Balance 370 480 - Medications Medications: Current Medications Acetaminophen (Tylenol 325mg Tab) 650 mg PO Q6 PRN PRN Reason: Fever >100.4 F Last Admin: 09/03/18 05:08 Dose: 650 mg Albuterol/Ipratropium (Duoneb 3 Mg/0.5 Mg (3 Ml) Ud) 3 ml INH RQ6 PRN PRN Reason: Shortness of Breath Last Admin: 09/03/18 13:59 Dose: 3 ml Aspirin (Ecotrin) 81 mg PO DAILY [facility] Last Admin: 09/03/18 09:26 Dose: 81 mg Dextrose (Dextrose 50% Inj) 0 ml IV STAT PRN; Protocol PRN Reason: Hypoglycemia Protocol Dextrose (Glutose 15) 0 gm PO ONCE PRN; Protocol PRN Reason: Hypoglycemia Protocol Diltiazem HCl (Cardizem Cd) 180 mg PO DAILY [facility] Last Admin: 09/03/18 09:26 Dose: 180 mg Glucagon (Glucagen Diagnostic Kit) 0 mg IM STAT PRN; Protocol PRN Reason: Hypoglycemia Protocol Heparin Sodium (Porcine) (Heparin) 5,000 units SC Q12 [facility] Last Admin: 09/03/18 09:27 Dose: 5,000 units Hydrochlorothiazide (Microzide) 12.5 mg PO DAILY [facility] Last Admin: 09/03/18 09:27 Dose: 12.5 mg Piperacillin Sod/Tazobactam (Sod 3.375 gm/ Sodium Chloride) 100 mls @ 200 mls/hr IVPB Q8H [facility]; Protocol Last Admin: 09/03/18 10:11 Dose: 200 mls/hr Ciprofloxacin (Cipro 400mg/200ml Dsw) 400 mg in 200 mls @ 133 mls/hr IVPB Q12H [facility]; Protocol Last Admin: 09/03/18 16:29 Dose: 133 mls/hr Dextrose (Dextrose 5% In Water 1000 Ml) 1,000 mls @ 0 mls/hr IV .Q0M PRN; Protocol PRN Reason: Hypoglycemia Protocol Influenza Virus Vaccine (Fluzone Quad [id number]) 60 mcg IM .ONCE ONE Stop: 09/05/18 14:01 Insulin Glargine (Lantus) 5 unit SC Q12 [facility] Insulin Human Regular (Novolin R) 0 unit SC ACHS [facility]; Protocol Last Admin: 09/03/18 17:27 Dose: 10 units Losartan Potassium (Cozaar) 100 mg PO DAILY [facility] Last Admin: 09/03/18 09:25 Dose: 100 mg Methylprednisolone (Solu-Medrol) 40 mg IVP Q8 [facility] Last Admin: 09/03/18 15:15 Dose: 40 mg Ondansetron HCl (Zofran Inj) 4 mg IVP Q8H PRN PRN Reason: Nausea/Vomiting Last Admin: 09/03/18 02:49 Dose: 4 mg Pantoprazole Sodium (Protonix Ec Tab) 40 mg PO DAILY [facility] Last Admin: 09/03/18 09:26 Dose: 40 mg - Labs Labs: 09/03/18 07:44 09/03/18 07:44 - Constitutional Appears: Well, No Acute Distress - Head Exam Head Exam: ATRAUMATIC - Neck Exam Neck Exam: Normal Inspection - Respiratory Exam Respiratory Exam: NORMAL BREATHING PATTERN - Cardiovascular Exam Cardiovascular Exam: REGULAR RHYTHM - GI/Abdominal Exam GI & Abdominal Exam: Soft, Normal Bowel Sounds - Extremities Exam Extremities Exam: Calf Tenderness - Neurological Exam Neurological Exam: Alert, Awake, Oriented x3 - Psychiatric Exam Psychiatric exam: Normal Affect, Normal Mood - Skin Additional comments: skin discoloration bilateral anterior tib Assessment and Plan - Assessment and Plan (Free Text) Assessment: 58 y/o female with PMHx of CVA 2011, CPPD, asthma, DM, HTN, HLD, and anemia presented to the ED on 09/02 with bilateral leg pain and shortness of breath w ith walking minimally. PE and DVT had been r/o and now on BiPAP. 1) b/l calf pain Patient with risk factors of PAD (diabetes, long time smoker), DVT r/o with negative PE and negative LE doppler. -recommend FRANK to assess for claudication 2) PNA -Tmax 101.5 -cipro 400 q12h and zosyn 3.375 q8h started this morning 09/03, continue -follow [facility] recsissy Holliday -repeat CXR in 72 hours if shortness if no clinical improvement 3) COPD/asthma -duonebs q6h -BiPAB at night -f/u ECHO - shortness of breath due to cardiac pathology possible -follow Dr. Zhang recsissy pulm 4) HTN -dilt 180 mg PO (home med) 5) polysubstance use -order counseling -on methadone 6) DM -ISS -f/u A1c case discussed with Dr. Yury Diego, DO PGY-1 <Tatyana Cotton V - Last Filed: 09/03/18 21:09> Objective - Vital Signs/Intake and Output Vital Signs (last 24 hours): Temp Pulse Resp BP Pulse Ox 98.4 F 91 H 20 103/72 93 L 09/03/18 15:10 09/03/18 16:00 09/03/18 15:10 09/03/18 15:10 09/03/18 15:10 Intake and Output: 09/03/18 09/04/18 18:59 06:59 Intake Total 480 Balance 480 - Medications Medications: Current Medications Acetaminophen (Tylenol 325mg Tab) 650 mg PO Q6 PRN PRN Reason: Fever >100.4 F Last Admin: 09/03/18 05:08 Dose: 650 mg Albuterol/Ipratropium (Duoneb 3 Mg/0.5 Mg (3 Ml) Ud) 3 ml INH RQ6 PRN PRN Reason: Shortness of Breath Last Admin: 09/03/18 19:38 Dose: 3 ml Aspirin (Ecotrin) 81 mg PO DAILY [facility] Last Admin: 09/03/18 09:26 Dose: 81 mg Dextrose (Dextrose 50% Inj) 0 ml IV STAT PRN; Protocol PRN Reason: Hypoglycemia Protocol Dextrose (Glutose 15) 0 gm PO ONCE PRN; Protocol PRN Reason: Hypoglycemia Protocol Diltiazem HCl (Cardizem Cd) 180 mg PO DAILY [facility] Last Admin: 09/03/18 09:26 Dose: 180 mg Glucagon (Glucagen Diagnostic Kit) 0 mg IM STAT PRN; Protocol PRN Reason: Hypoglycemia Protocol Heparin Sodium (Porcine) (Heparin) 5,000 units SC Q12 [facility] Last Admin: 09/03/18 09:27 Dose: 5,000 units Hydrochlorothiazide (Microzide) 12.5 mg PO DAILY [facility] Last Admin: 09/03/18 09:27 Dose: 12.5 mg Piperacillin Sod/Tazobactam (Sod 3.375 gm/ Sodium Chloride) 100 mls @ 200 mls/hr IVPB Q8H [facility]; Protocol Last Admin: 09/03/18 18:27 Dose: 200 mls/hr Dextrose (Dextrose 5% In Water 1000 Ml) 1,000 mls @ 0 mls/hr IV .Q0M PRN; Protocol PRN Reason: Hypoglycemia Protocol Moxifloxacin HCl (Avelox Iv 400mg/250ml Ns) 400 mg in 250 mls @ 167 mls/hr IVPB Q24H [facility]; Protocol Influenza Virus Vaccine (Fluzone Quad [id number]) 60 mcg IM .ONCE ONE Stop: 09/05/18 14:01 Insulin Glargine (Lantus) 5 unit SC Q12 [facility] Insulin Human Regular (Novolin R) 0 unit SC ACHS [facility]; Protocol Last Admin: 09/03/18 17:27 Dose: 10 units Losartan Potassium (Cozaar) 100 mg PO DAILY [facility] Last Admin: 09/03/18 09:25 Dose: 100 mg Methylprednisolone (Solu-Medrol) 40 mg IVP Q8 [facility] Last Admin: 09/03/18 15:15 Dose: 40 mg Pantoprazole Sodium (Protonix Ec Tab) 40 mg PO DAILY [facility] Last Admin: 09/03/18 09:26 Dose: 40 mg - Labs Labs: 09/03/18 07:44 09/03/18 07:44 - Constitutional Appears: Well, Non-toxic - Head Exam Head Exam: NORMAL INSPECTION - Eye Exam Eye Exam: EOMI - ENT Exam ENT Exam: Mucous Membranes Dry - Respiratory Exam Respiratory Exam: Decreased Breath Sounds, Rales. absent: Wheezes, Stridor - Cardiovascular Exam Cardiovascular Exam: +S1, +S2 - GI/Abdominal Exam GI & Abdominal Exam: Distended (obese habitus). absent: Firm, Guarding, Rigid, Tenderness, Rebound - Extremities Exam Extremities Exam: Pedal Edema. absent: Tenderness - Skin Skin Exam: Dry, Intact, Normal Color, Warm Attending/Attestation - Attestation I have personally seen and examined this patient.: Yes I have fully participated in the care of the patient.: Yes I have reviewed all pertinent clinical information, including history, physical exam and plan: Yes Notes (Text): Patient seen, examined and case discussed with day-time resident. Patient with known hx of COPD, hypertension, diabetes, prior hx of CVA with left sided weakness, methadone dependence comes in for leg pains and associated dyspnea on exertion. 1) Sepsis Multifocal Pneumonia Assessment/Plan * Criteria: Fever (101.5F), leukocytosis, source of infection: pneumonia * CT Chest (09/03/18): no interval pulmonary embolus appreciated, persistent mediastinal and right hilar lymphadenopath, but without inerval increase in size in distribution. bilateral lower lobe atelectasis and possible infiltrates are identifed * Pulmonary (Dr. Zhang) on board--> help appreciated * Infectious Disease (Dr. Holliday) on board-->help appreciated * Risk factors: recent hospitalization, and steroids for bronchitis/COPD * Zosyn, Cipro, and Vancomycin * Adjusted by ID * Zosyn 3.375 IVPB Q8H (active since 09/03/18) * Avelox 400mg IVPB Daily (Active since 09/03/18) * Elevated procalcitonin * Prior Echo (07/29): normal LV systolic function, diastolic dysfunction, borderline dilated LA, mild TR 2. COPD exacerbation Assessment/Plan * Pulmonary (Dr. Zhang) on board--> help appreciated * Solumedrol 40mg IV Q8H * Duoneb 3ml INH Q6 PRN shortness of breathe 3. Lower extremity edema Assessment/Plan * Venous doppler: negative SVT/negative DVTs 4. Hypertension Assessment/Plan * Diltiazem 180 mg PO daily * Hold HCTZ given TIM * Cozaar 100mg Po daily 5. Diabetes Assessment/Plan * accuchecks ACHS * ISS - moderate * lantus 5 units [id number] * Novolin 70/30 40 units sub ACB * Novolin 70/30 30 units sub ACD * F/u HgA1C * Cozaar 100mg PO daily 6. Hyperlipidemia Assessment/Plan * Lipid panel in Jul 2018 6. Methadone Dependence * on OP methadone at [facility]-->advised resident to call clinic to confirm dose prior to restarting the hospital * UDS confirms methadone 8. Prophylasxis * GI PPx: Pantoprazole 40mg PO daily * DVT PPX: Heparin 5000 units Q8H * PICC line * PT/OT eval * SCDS b/l * Florastor 250mg PO BID
--- NOTE | 2018-09-03 18:22 | CP.PCM.CON ---
History of Present Illness - History of Present Illness History of Present Illness: 58 year old female presents with bilateral leg swelling while seeing her PMD on Saturday. Patient reports the leg swelling started Wednesday 08/29 and was unable to make it into the office until Sunday 09/02. Patient does admit to SOB on exertion, wheezing, nonproductive cough a Admits to using nebulizer, CPAP machine at night and other medications without any improvement. patient was hospitalized last month at [facility] for Pneumonia for 1 week and discharged with antibiotics and prednisone then returned to [facility] a week later and spent another 5 days inpatient on antibiotics. PMHx: DM Type II, HTN, CAD, High Cholesterol, COPD, Bronchial Asthma Surgical Hx: Neck surgery for cyst removal, Cyst removal in upper arm bilateral, Skin graft in lower extremities bilaterally, X 1, Blood transfusion. Meds: Allergies: NKDA Fam Hx: Mother - denies. Father - head aneurysm. Brother - head aneurysm. Stroke in father's side of family. Social: Lives at home with son and son's father. Not currently working, states she is "disabled". Former smoker, quit 1 year ago, previous use of 1 ppd since age 24. 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 Denies alcohol us Review of Systems - Review of Systems All systems: reviewed and no additional remarkable complaints except - Constitutional Constitutional: As Per HPI - EENT Eyes: absent: As Per HPI, Blind Spots, Blurred Vision, Change in Vision, Decreased Night Vision, Diplopia, Discharge, Dry Eye, Exophthalmos, Floaters, Irritation, Itchy Eyes, Loss of Peripheral Vision, Pain, Photophobia, Requires Corrective Lenses, Sees Flashes, Spots in Vision, Tunnel Vision, Other Visual Disturbances, Loss of Vision, Other Ears: absent: As Per HPI, Decreased Hearing, Ear Discharge, Ear Pain, Tinnitus, Abnormal Hearing, Disequilibrium, Dizziness, Other Nose/Mouth/Throat: absent: As Per HPI, Epistaxis, Nasal Congestion, Nasal Discharge, Nasal Obstruction, Nasal Trauma, Nose Pain, Post Nasal Drip, Sinus Pain, Sinus Pressure, Bleeding Gums, Change in Voice, Dental Pain, Dry Mouth, Dysphagia, Halitosis, Hoarsness, Lip Swelling, Mouth Lesions, Mouth Pain, Odynophagia, Sore Throat, Throat Swelling, Tongue Swelling, Facial Pain, Neck Pain, Neck Mass, Other - Breasts Breasts: absent: As Per HPI, Change in Shape, Mass, Pain, Nipple Discharge, Nipple Inversion, Skin Changes, Swelling, Other - Cardiovascular Cardiovascular: As Per HPI - Respiratory Respiratory: As Per HPI - Gastrointestinal Gastrointestinal: absent: As Per HPI, Abdominal Pain, Belching, Bloating, Change in Bowel Habits, Change in Stool Character, Coffee Ground Emesis, Constipation, Cramping, Diarrhea, Dyspepsia, Dysphagia, Early Satiety, Excessive Flatus, Fecal Incontinence, Heartburn, Hematemesis, Hematochezia, Loose Stools, Melena, Nausea, Odynophagia, Temesmus, Vomiting, Other - Genitourinary Genitourinary: absent: As Per HPI, Change in Urinary Stream, Difficulty Urinating, Dysuria, Flank Pain, Hematuria, Pyuria, Nocturia, Urinary Incontinence, Urinary Frequency, Urinary Hesitance, Urinary Urgency, Voiding Freq/Small Amts, Freq UTI, Hx Renal/Bladder Calculi, Hx /Renal Surgery, Bladder Distension, Other - Reproductive: Female Reproductive:Female: absent: As Per HPI, Amenorrhea, Amenorrhea/ Control, Currently Menstual, Cycle <21 Days, Cycle >35 Days, Cycle Variable, Menses 1-7 Days, Menses >/= 8 Days, Menses Variable, Cycle > 4 Weeks Between, No Menses for 6 Months, Heavy Menses, Light Menses, Normal Menses, Spotting Between Cycles, S/P Hysterectomy, Menopausal, Post Menopausal, Premenarche, Abnormal Vaginal Bleeding, Dysmenorrhea, Dyspareunia, Genital Lesions, Genital Pruritis, Pelvic Pain, Prolapse Symptoms, Sexual Dysfunction, Vaginal Discharge, Vaginal Dryness, Vaginal Odor, Vaginal Pruritis, Other - Menstruation Menstruation: absent: As Per HPI, Amenorrhea, Amenorrhea/ Control, Currently Menstual, Cycle <21 Days, Cycle >35 Days, Cycle Variable, Menses 1-7 Days, Menses >/= 8 Days, Menses Variable, Cycle > 4 Weeks Between, No Menses for 6 Months, Heavy Menses, Light Menses, Normal Menses, Spotting Between Cycles, S/P Hysterectomy, Menopausal, Post Menopausal, Premenarche, Abnormal Vaginal Bleeding, Dysmenorrhea, Other - Musculoskeletal Musculoskeletal: absent: As Per HPI, Abnormal Gait, Arthralgias, Atrophy, Back Pain, Deformity, Joint Swelling, Limited Range of Motion, Loss of Height, Muscle Cramps, Muscle Weakness, Myalgias, Neck Pain, Numbness, Radiating Pain into Limb, Stiffness, Tingling, Other - Integumentary Integumentary: As Per HPI - Neurological Neurological: absent: As Per HPI, Abnormal Gait, Abnormal Hearing, Abnormal Mo vements, Abnormal Speech, Behavioral Changes, Burning Sensations, Confusion, Convulsions, Disequilibrium, Dizziness, Numbness, Focal Weakness, Frequent Falls, Headaches, Lack of Coordination, Loss of Vision, Memory Loss, Paresthesias, Radicular Pain, Restless Legs, Sensory Deficit, Syncope, Tingling, Tremor, Vertigo, Weakness, Other Visual Disturbances, Other - Psychiatric Psychiatric: absent: As Per HPI, Abnormal Sleep Pattern, Anhedonia, Anxiety, Auditory Hallucinations, Behavioral Changes, Change in Appetite, Change in Libido, Confusion, Depression, Difficulty Concentrating, Hallucinations, Homicidal Ideation, Hopelessness, Irritability, Memory Loss, Mood Swings, Panic Attacks, Paranoia, Suicidal Ideation, Visual Hallucinations, Tactile Hallucinati ons, Other - Endocrine Endocrine: absent: As Per HPI, Change in Body Appearance, Change in Libido, Cold Intolorance, Deepening of Voice, Excessive Sweating, Fatigue, Flushing, Heat Intolorance, Increase in Ring/Shoe/Hat Size, Palpitations, Polydipsia, Polyphagi a, Polyuria, Other - Hematologic/Lymphatic Hematologic: absent: As Per HPI, Easy Bleeding, Easy Bruising, Lymphadenopathy, Other Past Patient History - Infectious Disease Hx of Infectious Diseases: None - Past Medical History & Family History Past Medical History?: Yes - Past Social History Smoking Status: Never Smoked - CARDIAC Hx Cardiac Disorders: Yes Hx Congestive Heart Failure: No Hx Hypercholesterolemia: Yes Hx Hypertension: Yes - PULMONARY Hx Chronic Obstructive Pulmonary Disease (COPD): Yes (USE OF CIPAP HOME O2) - NEUROLOGICAL Hx Neurological Disorder: Yes Hx Migraine: Yes - HEENT Hx HEENT Problems: Yes Other/Comment: wears prescription eyeglasses - RENAL Hx Chronic Kidney Disease: No - ENDOCRINE/METABOLIC Hx Diabetes Mellitus Type 1: Yes - HEMATOLOGICAL/ONCOLOGICAL Hx Blood Disorders: No Hx Blood Transfusions: No Hx Blood Transfusion Reaction: No - INTEGUMENTARY Hx Dermatological Problems: No - MUSCULOSKELETAL/RHEUMATOLOGICAL Hx Arthritis: Yes - GASTROINTESTINAL Hx Gastrointestinal Disorders: Yes Hx Constipation: Yes - GENITOURINARY/GYNECOLOGICAL Hx Genitourinary Disorders: No - PSYCHIATRIC Hx Psychophysiologic Disorder: Yes Hx Anxiety: Yes (NO MED) Hx Substance Use: Yes - SURGICAL HISTORY Hx Surgeries: Yes Hx Section: Yes Other/Comment: SKIN GRAFT bilat legs - ANESTHESIA Hx Anesthesia: Yes Hx Anesthesia Reactions: No Hx Malignant Hyperthermia: No Meds Allergies/Adverse Reactions: Allergies Allergy/AdvReac Type Severity Reaction Status Date / Time No Known Allergies Allergy Verified 09/02/18 17:36 - Medications Medications: Current Medications Acetaminophen (Tylenol 325mg Tab) 650 mg PO Q6 PRN PRN Reason: Fever >100.4 F Last Admin: 09/03/18 05:08 Dose: 650 mg Albuterol/Ipratropium (Duoneb 3 Mg/0.5 Mg (3 Ml) Ud) 3 ml INH RQ6 PRN PRN Reason: Shortness of Breath Last Admin: 09/03/18 13:59 Dose: 3 ml Aspirin (Ecotrin) 81 mg PO DAILY [facility] Last Admin: 09/03/18 09:26 Dose: 81 mg Dextrose (Dextrose 50% Inj) 0 ml IV STAT PRN; Protocol PRN Reason: Hypoglycemia Protocol Dextrose (Glutose 15) 0 gm PO ONCE PRN; Protocol PRN Reason: Hypoglycemia Protocol Diltiazem HCl (Cardizem Cd) 180 mg PO DAILY [facility] Last Admin: 09/03/18 09:26 Dose: 180 mg Glucagon (Glucagen Diagnostic Kit) 0 mg IM STAT PRN; Protocol PRN Reason: Hypoglycemia Protocol Heparin Sodium (Porcine) (Heparin) 5,000 units SC Q12 [facility] Last Admin: 09/03/18 09:27 Dose: 5,000 units Hydrochlorothiazide (Microzide) 12.5 mg PO DAILY [facility] Last Admin: 09/03/18 09:27 Dose: 12.5 mg Piperacillin Sod/Tazobactam (Sod 3.375 gm/ Sodium Chloride) 100 mls @ 200 mls/hr IVPB Q8H [facility]; Protocol Last Admin: 09/03/18 10:11 Dose: 200 mls/hr Ciprofloxacin (Cipro 400mg/200ml Dsw) 400 mg in 200 mls @ 133 mls/hr IVPB Q12H [facility]; Protocol Last Admin: 09/03/18 16:29 Dose: 133 mls/hr Dextrose (Dextrose 5% In Water 1000 Ml) 1,000 mls @ 0 mls/hr IV .Q0M PRN; Protocol PRN Reason: Hypoglycemia Protocol Influenza Virus Vaccine (Fluzone Quad [id number]) 60 mcg IM .ONCE ONE Stop: 09/05/18 14:01 Insulin Glargine (Lantus) 5 unit SC Q12 [facility] Insulin Human Regular (Novolin R) 0 unit SC ACHS [facility]; Protocol Last Admin: 09/03/18 17:27 Dose: 10 units Losartan Potassium (Cozaar) 100 mg PO DAILY [facility] Last Admin: 09/03/18 09:25 Dose: 100 mg Methylprednisolone (Solu-Medrol) 40 mg IVP Q8 [facility] Last Admin: 09/03/18 15:15 Dose: 40 mg Ondansetron HCl (Zofran Inj) 4 mg IVP Q8H PRN PRN Reason: Nausea/Vomiting Last Admin: 09/03/18 02:49 Dose: 4 mg Pantoprazole Sodium (Protonix Ec Tab) 40 mg PO DAILY [facility] Last Admin: 09/03/18 09:26 Dose: 40 mg Physical Exam - Constitutional Appears: Non-toxic, Chronically Ill - Head Exam Head Exam: ATRAUMATIC, NORMAL INSPECTION, NORMOCEPHALIC - Eye Exam Eye Exam: EOMI, PERRL. absent: Scleral icterus Pupil Exam: NORMAL ACCOMODATION - ENT Exam ENT Exam: Mucous Membranes Dry, Normal External Ear Exam - Neck Exam Neck exam: Negative for: Lymphadenopathy - Respiratory Exam Respiratory Exam: Decreased Breath Sounds, Prolonged Expiratory Phase, Rales, Rhonchi - Cardiovascular Exam Cardiovascular Exam: REGULAR RHYTHM, +S1, +S2 - GI/Abdominal Exam GI & Abdominal Exam: Diminished Bowel Sounds, Distended, Soft. absent: Guarding, Rebound, Rigid, Tenderness - Rectal Exam Rectal Exam: Deferred - Exam Exam: NORMAL INSPECTION - Extremities Exam Extremities exam: Positive for: pedal edema, tenderness, pedal pulses present. Negative for: calf tenderness - Back Exam Back exam: absent: CVA tenderness (L), CVA tenderness (R) - Neurological Exam Neurological exam: Alert, CN II-XII Intact, Oriented x3, Reflexes Normal - Psychiatric Exam Psychiatric exam: Normal Mood - Skin Skin Exam: Dry, Intact Results - Vital Signs Recent Vital Signs: Last Vital Signs Temp 98.4 F 09/03/18 15:10 Pulse 91 H 09/03/18 16:00 Resp 20 09/03/18 15:10 BP 103/72 09/03/18 15:10 Pulse Ox 93 L 09/03/18 15:10 - Labs Result Diagrams: 09/03/18 07:44 09/03/18 07:44 Labs: Laboratory Results - last 24 hr 09/02/18 09/02/18 09/03/18 18:39 18:39 01:30 WBC 8.4 RBC 5.13 Hgb 10.9 L Hct 35.4 MCV 69.0 L MCH 21.3 L MCHC 30.8 L RDW 17.1 H Plt Count 202 MPV 9.4 Neut % (Auto) 52.5 Lymph % (Auto) 32.3 Bucks % (Auto) 8.1 Eos % (Auto) 5.9 H Baso % (Auto) 1.2 Neut # (Auto) 4.4 Lymph # (Auto) 2.7 Bucks # (Auto) 0.7 Eos # (Auto) 0.5 Baso # (Auto) 0.1 Puncture Site pCO2 pO2 HCO3 ABG pH ABG Total CO2 ABG O2 Saturation ABG Base Excess ABG Hemoglobin ABG Carboxyhemoglobin POC ABG HHb (Measured) ABG Methemoglobin Arik Test A-a O2 Difference Respiratory Index Hgb O2 Saturation Vent Mode FiO2 Inspiratory BiPAP Expiratory BiPAP Sodium 142 Potassium 3.9 Chloride 98 Carbon Dioxide 39 H Anion Gap 9 L BUN 25 H Creatinine 1.1 Est GFR ( Amer) > 60 Est GFR (Non-Af Amer) 51 POC Glucose (mg/dL) Random Glucose 103 Calcium 8.6 Phosphorus Magnesium Total Bilirubin AST ALT Alkaline Phosphatase Total Creatine Kinase 112 CK-MB (Mass) 1.08 Troponin I < 0.0120 NT-Pro-B Natriuret Pep Total Protein Albumin Globulin Albumin/Globulin Ratio Procalcitonin Urine Opiates Screen Urine Methadone Screen Ur Barbiturates Screen Ur Phencyclidine Scrn Ur Amphetamines Screen U Benzodiazepines Scrn U Oth Cocaine Metabols U Cannabinoids Screen 09/03/18 09/03/18 09/03/18 06:26 07:44 07:44 WBC 11.5 H RBC 5.30 H Hgb 11.0 Hct 37.2 MCV 70.2 L MCH 20.7 L MCHC 29.6 L RDW 16.8 H Plt Count 198 MPV 10.1 Neut % (Auto) Lymph % (Auto) Bucks % (Auto) Eos % (Auto) Baso % (Auto) Neut # (Auto) Lymph # (Auto) Bucks # (Auto) Eos # (Auto) Baso # (Auto) Puncture Site pCO2 pO2 HCO3 ABG pH ABG Total CO2 ABG O2 Saturation ABG Base Excess ABG Hemoglobin ABG Carboxyhemoglobin POC ABG HHb (Measured) ABG Methemoglobin Arik Test A-a O2 Difference Respiratory Index Hgb O2 Saturation Vent Mode FiO2 Inspiratory BiPAP Expiratory BiPAP Sodium 138 Potassium 3.8 Chloride 98 Carbon Dioxide 32 H Anion Gap 12 BUN 27 H Creatinine 1.6 H Est GFR ( Amer) 40 Est GFR (Non-Af Amer) 33 POC Glucose (mg/dL) 221 H Random Glucose 278 H Calcium 8.1 L Phosphorus 3.3 Magnesium 1.3 L Total Bilirubin 0.8 AST 20 ALT 21 Alkaline Phosphatase 98 Total Creatine Kinase CK-MB (Mass) Troponin I NT-Pro-B Natriuret Pep 86.5 Total Protein 6.2 L Albumin 3.3 L Globulin 3.0 Albumin/Globulin Ratio 1.1 Procalcitonin Urine Opiates Screen Urine Methadone Screen Ur Barbiturates Screen Ur Phencyclidine Scrn Ur Amphetamines Screen U Benzodiazepines Scrn U Oth Cocaine Metabols U Cannabinoids Screen 09/03/18 09/03/18 09/03/18 09:02 11:06 11:14 WBC RBC Hgb Hct MCV MCH MCHC RDW Plt Count MPV Neut % (Auto) Lymph % (Auto) Bucks % (Auto) Eos % (Auto) Baso % (Auto) Neut # (Auto) Lymph # (Auto) Bucks # (Auto) Eos # (Auto) Baso # (Auto) Puncture Site Lr pCO2 65 H pO2 87 HCO3 30.8 H ABG pH 7.34 L ABG Total CO2 37.1 H ABG O2 Saturation 97.7 ABG Base Excess 7.6 H ABG Hemoglobin 10.7 L ABG Carboxyhemoglobin 2.1 H POC ABG HHb (Measured) 2.2 ABG Methemoglobin 1.0 Arik Test Pos A-a O2 Difference 117.0 Respiratory Index 1.3 Hgb O2 Saturation 94.7 L Vent Mode Bipap FiO2 40.0 Inspiratory BiPAP 12 Expiratory BiPAP 5 Sodium Potassium Chloride Carbon Dioxide Anion Gap BUN Creatinine Est GFR ( Amer) Est GFR (Non-Af Amer) POC Glucose (mg/dL) 450 H* Random Glucose Calcium Phosphorus Magnesium Total Bilirubin AST ALT Alkaline Phosphatase Total Creatine Kinase CK-MB (Mass) Troponin I NT-Pro-B Natriuret Pep Total Protein Albumin Globulin Albumin/Globulin Ratio Procalcitonin 21.74 H Urine Opiates Screen Urine Methadone Screen Ur Barbiturates Screen Ur Phencyclidine Scrn Ur Amphetamines Screen U Benzodiazepines Scrn U Oth Cocaine Metabols U Cannabinoids Screen 09/03/18 15:27 WBC RBC Hgb Hct MCV MCH MCHC RDW Plt Count MPV Neut % (Auto) Lymph % (Auto) Bucks % (Auto) Eos % (Auto) Baso % (Auto) Neut # (Auto) Lymph # (Auto) Bucks # (Auto) Eos # (Auto) Baso # (Auto) Puncture Site pCO2 pO2 HCO3 ABG pH ABG Total CO2 ABG O2 Saturation ABG Base Excess ABG Hemoglobin ABG Carboxyhemoglobin POC ABG HHb (Measured) ABG Methemoglobin Arik Test A-a O2 Difference Respiratory Index Hgb O2 Saturation Vent Mode FiO2 Inspiratory BiPAP Expiratory BiPAP Sodium Potassium Chloride Carbon Dioxide Anion Gap BUN Creatinine Est GFR ( Amer) Est GFR (Non-Af Amer) POC Glucose (mg/dL) Random Glucose Calcium Phosphorus Magnesium Total Bilirubin AST ALT Alkaline Phosphatase Total Creatine Kinase CK-MB (Mass) Troponin I NT-Pro-B Natriuret Pep Total Protein Albumin Globulin Albumin/Globulin Ratio Procalcitonin Urine Opiates Screen Negative Urine Methadone Screen Positive H Ur Barbiturates Screen Negative Ur Phencyclidine Scrn Negative Ur Amphetamines Screen Negative U Benzodiazepines Scrn Negative U Oth Cocaine Metabols Negative U Cannabinoids Screen Negative - Impressions Impression: Chest CT 09/02 - No pulmonary embolus appreciated. Persistent mediastinal and right hilar lymphadenopathy, but without interval increase in size and distribution. Bilateral lower lobe atelectasis and possible infiltrates are identified. Scattered ground-glass opacity in bilateral upper lobes. Venous Duplex Lower Extremity Bilateral 09/03 - Right: No evidence of deep or superficial vein thrombosis. Left: No evidence of deep or superficial vein thrombosis Assessment & Plan (1) Multifocal pneumonia Status: Acute (2) TIM (acute kidney injury) Status: Acute (3) Asthma without status asthmaticus Status: Acute (4) CO2 retention Status: Acute (5) COPD exacerbation Status: Acute (6) Cellulitis Status: Acute
[2018-09-03] MEDS ORDERED: Moxifloxacin IV 400mg/250ml NS 400 MG/250 ML BAG IVPB SCH (18:30)
[2018-09-03] MEDS: (Lantus) Insulin Glargine, Recombinant SC SCH (21:51)
[2018-09-04] MEDS: Albuterol-Ipratrop 3 mg / 0.5 (3 ml) UD INH PRN ×2 (01:34→19:23)
[2018-09-04] MEDS: Piperacillin/Tazobact 3.375 GM in Sodium Chloride 100 ML IVPB SCH ×3 (03:29→19:29)
[2018-09-04] MEDS: MethylPREDNISolone 40 mg Vial IVP SCH ×3 (05:27→22:23)
[2018-09-04] MEDS: (Novolin R) Insulin Human Regular 100 units/ml vial SC SCH ×4 (07:31→22:24)
[2018-09-04 07:57] LABS: BASO % 0.2 % (0.0-2.0); HEMOGLOBIN 9.9 g/dL (11.0-16.0); LYMPH # 0.8 K/uL (1.0-4.3); LYMPH % 4.6 % (20.0-40.0); MEAN CELL VOLUME 69.4 fL (81.0-99.0); MEAN CORPUSCULAR HEMOGLOBIN 21.3 pg (27.0-31.0); MEAN CORPUSCULAR HGB CONC 30.7 g/dL (33.0-37.0); MEAN PLATELET VOLUME 10.1 fL (7.2-11.7); MONO # 0.4 K/uL (0.0-0.8); MONO % 2.4 % (0.0-10.0); NEUT # 15.8 K/uL (1.8-7.0); NEUT % 92.8 % (50.0-75.0); PLATELET COUNT 190 K/uL (130-400); RBC 4.67 Mil/uL (3.80-5.20); RED CELL DISTRIBUTION WIDTH 16.9 % (11.5-14.5); WHITE BLOOD COUNT 17.1 K/uL (4.8-10.8)
[2018-09-04 08:31] LABS: ALB/GLOB RATIO 1.1 (1.0-2.1); ALBUMIN 3.5 g/dL (3.5-5.0); CALCIUM 7.8 mg/dl (8.6-10.4)
[2018-09-04] MEDS: (Novolog Mix 70/30) Insulin Aspart/Insulin Aspar 100 units/ml SC SCH ×2 (08:32→17:23)
[2018-09-04 08:49] LABS: ANISOCYTOSIS SLIGHT; BANDS 2 % (0-2); HYPOCHROMIC SLIGHT; LYMPHOCYTE 2 % (20-40); MONOCYTE 1 % (0-10); NEUTROPHIL 95 % (50-75); PLATELET ESTIMATE NORMAL (NORMAL); POIKILOCYTOSIS SLIGHT; TOTAL CELLS COUNTED 100
[2018-09-04 08:50] LABS: BURR CELLS SLIGHT; OVALOCYTES SLIGHT
[2018-09-04] MEDS ORDERED: Methadone 40 mg Tab PO SCH (10:00)
[2018-09-04] MEDS: Saccharomyces Boulardi 250 mg Cap PO SCH ×2 (10:40→17:22)
[2018-09-04] MEDS: Pantoprazole 40 mg EC Tab PO SCH (10:40)
[2018-09-04] MEDS: diltiaZEM 180 mg/24 Hours CD Cap PO SCH (10:40)
[2018-09-04] MEDS: (Lantus) Insulin Glargine, Recombinant SC SCH ×2 (10:41→22:24)
[2018-09-04] MEDS: Moxifloxacin IV 400mg/250ml NS 400 MG/250 ML BAG IVPB SCH (10:42)
[2018-09-04 10:46] LABS: HEPATITIS B SURFACE AG Negative (NEGATIVE)
[2018-09-04 10:52] LABS: HEPATITIS A IGM NEGATIVE (NEGATIVE); HEPATITIS B CORE AB NEGATIVE (NEGATIVE)
[2018-09-04 11:03] LABS: HEPATITIS C ANTIBODY NEGATIVE (NEGATIVE)
--- NOTE | 2018-09-04 11:30 | RAD ---
Date of service: 09/04/2018 HISTORY: PICC Insertion COMPARISON: No prior. FINDINGS: LUNGS: Right basilar linear scar/atelectasis. Resolved generalized opacity compared to prior examination of 07/11/2018. No new infiltrate. PLEURA: No significant pleural effusion identified, no pneumothorax apparent. CARDIOVASCULAR: No aortic atherosclerotic calcification present Mild cardiomegaly. Right PICC catheter terminates in the region of superior vena cava. OSSEOUS STRUCTURES: No significant abnormalities. VISUALIZED UPPER ABDOMEN: Normal. OTHER FINDINGS: None. IMPRESSION: Linear scar/atelectasis at right base. Right PICC catheter terminates in the region of the superior vena cava.
[2018-09-04] MEDS: Simethicone 40 mg/0.6 ml Liquid (30 ml) PO SCH ×3 (14:08→22:22)
--- NOTE | 2018-09-04 14:51 | CP.PCM.PN ---
<Shira Diego - Last Filed: 09/04/18 16:52> Subjective - Date & Time of Evaluation Date of Evaluation: 09/04/18 Time of Evaluation: 14:42 - Subjective Subjective: Medicine Dr. Cotton's service Patient seen and examined at bedside this morning. Endorses some shortness of breath when going to bathroom. PICC line inserted last night without complaints. Objective - Vital Signs/Intake and Output Vital Signs (last 24 hours): Temp Pulse Resp BP Pulse Ox 98.1 F 72 18 111/73 96 09/04/18 07:20 09/04/18 09:00 09/04/18 07:20 09/04/18 07:20 09/04/18 07:20 Intake and Output: 09/04/18 09/04/18 06:59 18:59 Intake Total 780 Balance 780 - Medications Medications: Current Medications Acetaminophen (Tylenol 325mg Tab) 650 mg PO Q6 PRN PRN Reason: Fever >100.4 F Last Admin: 09/03/18 05:08 Dose: 650 mg Albuterol/Ipratropium (Duoneb 3 Mg/0.5 Mg (3 Ml) Ud) 3 ml INH RQ6 PRN PRN Reason: Shortness of Breath Last Admin: 09/04/18 01:34 Dose: 3 ml Aspirin (Ecotrin) 81 mg PO DAILY [facility] Last Admin: 09/04/18 10:40 Dose: 81 mg [facility] Dextrose (Dextrose 50% Inj) 0 ml IV STAT PRN; Protocol PRN Reason: Hypoglycemia Protocol Dextrose (Glutose 15) 0 gm PO ONCE PRN; Protocol PRN Reason: Hypoglycemia Protocol Diltiazem HCl (Cardizem Cd) 180 mg PO DAILY [facility] Last Admin: 09/04/18 10:40 Dose: 180 mg Glucagon (Glucagen Diagnostic Kit) 0 mg IM STAT PRN; Protocol PRN Reason: Hypoglycemia Protocol Heparin Sodium (Porcine) (Heparin) 5,000 units SC Q8H [facility] Last Admin: 09/04/18 14:09 Dose: 5,000 units Hydrochlorothiazide (Microzide) 12.5 mg PO DAILY [facility] Last Admin: 09/03/18 09:27 Dose: 12.5 mg Piperacillin Sod/Tazobactam (Sod 3.375 gm/ Sodium Chloride) 100 mls @ 200 mls/hr IVPB Q8H [facility]; Protocol Last Admin: 09/04/18 12:39 Dose: 200 mls/hr Dextrose (Dextrose 5% In Water 1000 Ml) 1,000 mls @ 0 mls/hr IV .Q0M PRN; Protocol PRN Reason: Hypoglycemia Protocol Moxifloxacin HCl (Avelox Iv 400mg/250ml Ns) 400 mg in 250 mls @ 167 mls/hr IVPB Q24H [facility]; Protocol Last Admin: 09/04/18 10:42 Dose: 167 mls/hr Insulin Aspart (Novolog Mix 70/30 (70/30 Units/Ml)) 30 units SC ACD [facility] Insulin Aspart (Novolog Mix 70/30 (70/30 Units/Ml)) 40 units SC ACB [facility] Last Admin: 09/04/18 08:32 Dose: 40 units Insulin Glargine (Lantus) 5 unit SC Q12 [facility] Last Admin: 09/04/18 10:41 Dose: 5 units Insulin Human Regular (Novolin R) 0 unit SC ACHS [facility]; Protocol Last Admin: 09/04/18 11:23 Dose: 6 units Losartan Potassium (Cozaar) 100 mg PO DAILY [facility] Last Admin: 09/04/18 10:40 Dose: 100 mg Methadone HCl (Methadose) 120 mg PO DAILY [facility] Last Admin: 09/04/18 10:40 Dose: 120 mg Methadone HCl (Methadose) 120 mg PO DAILY [facility] Stop: 09/11/18 10:01 Methylprednisolone (Solu-Medrol) 40 mg IVP Q8 [facility] Last Admin: 09/04/18 14:08 Dose: 40 mg Pantoprazole Sodium (Protonix Ec Tab) 40 mg PO DAILY [facility] Last Admin: 09/04/18 10:40 Dose: 40 mg Polyethylene Glycol (Miralax) 17 gm PO DAILY [facility] Stop: 09/11/18 10:01 Saccharomyces Boulardii (Florastor) 250 mg PO BID [facility] Last Admin: 09/04/18 10:40 Dose: 250 mg Simethicone (Mylicon Liq) 40 mg PO QID [facility] Stop: 09/10/18 14:01 Last Admin: 09/04/18 14:08 Dose: 40 mg - Labs Labs: 09/04/18 07:49 09/04/18 07:49 - Constitutional Appears: Well, Non-toxic - Head Exam Head Exam: ATRAUMATIC, NORMAL INSPECTION - Eye Exam Eye Exam: EOMI, Normal appearance, PERRL - ENT Exam ENT Exam: Mucous Membranes Moist - Respiratory Exam Respiratory Exam: Clear to Ausculation Bilateral, NORMAL BREATHING PATTERN Additional comments: diminshed breath sounds bilaterally on lower lung panda - Cardiovascular Exam Cardiovascular Exam: REGULAR RHYTHM, RRR - GI/Abdominal Exam GI & Abdominal Exam: Soft, Normal Bowel Sounds - Extremities Exam Extremities Exam: Pedal Edema. absent: Calf Tenderness Additional comments: skin discoloration on bilateral tibia - Neurological Exam Neurological Exam: Alert, Awake, Oriented x3 - Psychiatric Exam Psychiatric exam: Normal Affect, Normal Mood Assessment and Plan - Assessment and Plan (Free Text) Assessment: 58 y/o female with PMHx of CVA 2011, COPD, asthma, DM, HTN, HLD, and anemia presented to the ED on 09/02 with bilateral leg pain and shortness of breath with walking minimally. PE and DVT had been r/o and now on BiPAP. 1) sepsis - fever and leukocytosis 2/2 PNA -Tmax 101.5, then 100.7 on 09/03 (yesterday) 6am shortly after first dose of zosyn. But WBC increased to 17.1 today. PICC inserted 09/03, yesterday -zosyn 3.375 q8h started 09/03, continue -florastor 250 mg PO BID -follow ID recs Dr. Holliday - who added moxi 400 mg q24 -elevated procaclitonin 21.[address] Zhang (pulm) -pending mycoplasma PNA serology, legionella AB negative 09/03 -Bcx no growth after 24h, gram stain pending 2) COPD/asthma -duonebs q6h PRN -BiPAB at night -solumedrol 40 mg IV q8h -follow Dr. Zhang recs pulm 3) TIM -hyperphos and hypocalcemia: Phos 5.5 and Ca 7.8 09/03. -PTH order pending - hypoparathyroidism possible/renal failure -ordered phoslo 667 mg x 1 for today 09/04 -recheck electrolytes 09/05, tomorrow 4) DM -novolog 70/30, 40 ACB and 30 ACD -lantus q12h -patient on HARJINDER - losartan 100 mg daily renoprotection -f/u A1c 5) HTN -dilt 180 mg PO (home med) -losartan 100 mg daily -HCTZ 12.5 mg daily withheld given TIM 7) polysubstance use -counseling ordered -UDS positive for methadone, on methadone 120 mg maintenance (dosage confirmed by RN who called the clinic) 8) constipation -simethicone 40 mg QID PRN -miralax daily -dulcolax suppository cancelled due to possibility of increased resistance DVT ppx: heparin 5000mg sq GI ppx: protonix 40 mg PO case discussed with Dr. Yury Diego, DO PGY-1 <Tatyana Cotton V - Last Filed: 09/04/18 18:35> Objective - Vital Signs/Intake and Output Vital Signs (last 24 hours): Temp Pulse Resp BP Pulse Ox 98.2 F 89 20 94/62 L 93 L 09/04/18 15:58 09/04/18 15:58 09/04/18 15:58 09/04/18 15:58 09/04/18 15:58 Intake and Output: 09/04/18 09/04/18 06:59 18:59 Intake Total 780 480 Balance 780 480 - Medications Medications: Current Medications Acetaminophen (Tylenol 325mg Tab) 650 mg PO Q6 PRN PRN Reason: Fever >100.4 F Last Admin: 09/03/18 05:08 Dose: 650 mg Albuterol/Ipratropium (Duoneb 3 Mg/0.5 Mg (3 Ml) Ud) 3 ml INH RQ6 PRN PRN Reason: Shortness of Breath Last Admin: 09/04/18 01:34 Dose: 3 ml Aspirin (Ecotrin) 81 mg PO DAILY [facility] Last Admin: 09/04/18 10:40 Dose: 81 mg Calcium Acetate (Phoslo) 667 mg PO BIDCC [facility] Last Admin: 09/04/18 17:23 Dose: 667 mg Dextrose (Dextrose 50% Inj) 0 ml IV STAT PRN; Protocol PRN Reason: Hypoglycemia Protocol Dextrose (Glutose 15) 0 gm PO ONCE PRN; Protocol PRN Reason: Hypoglycemia Protocol Diltiazem HCl (Cardizem Cd) 180 mg PO DAILY [facility] Last Admin: 09/04/18 10:40 Dose: 180 mg Glucagon (Glucagen Diagnostic Kit) 0 mg IM STAT PRN; Protocol PRN Reason: Hypoglycemia Protocol Heparin Sodium (Porcine) (Heparin) 5,000 units SC Q8H [facility] Last Admin: 09/04/18 14:09 Dose: 5,000 units Hydrochlorothiazide (Microzide) 12.5 mg PO DAILY [facility] Last Admin: 09/03/18 09:27 Dose: 12.5 mg Piperacillin Sod/Tazobactam (Sod 3.375 gm/ Sodium Chloride) 100 mls @ 200 mls/hr IVPB Q8H [facility]; Protocol Last Admin: 09/04/18 12:39 Dose: 200 mls/hr Dextrose (Dextrose 5% In Water 1000 Ml) 1,000 mls @ 0 mls/hr IV .Q0M PRN; Protocol PRN Reason: Hypoglycemia Protocol Moxifloxacin HCl (Avelox Iv 400mg/250ml Ns) 400 mg in 250 mls @ 167 mls/hr IVPB Q24H [facility]; Protocol Last Admin: 09/04/18 10:42 Dose: 167 mls/hr Insulin Aspart (Novolog Mix 70/30 (70/30 Units/Ml)) 30 units SC ACD [facility] Last Admin: 09/04/18 17:23 Dose: 30 units Insulin Aspart (Novolog Mix 70/30 (70/30 Units/Ml)) 40 units SC ACB [facility] Last Admin: 09/04/18 08:32 Dose: 40 units Insulin Glargine (Lantus) 5 unit SC Q12 [facility] Last Admin: 09/04/18 10:41 Dose: 5 units Insulin Human Regular (Novolin R) 0 unit SC ACHS [facility]; Protocol Last Admin: 09/04/18 17:22 Dose: 10 units Losartan Potassium (Cozaar) 100 mg PO DAILY [facility] Last Admin: 09/04/18 10:40 Dose: 100 mg Methadone HCl (Methadose) 120 mg PO DAILY [facility] Last Admin: 09/04/18 10:40 Dose: 120 mg Methadone HCl (Methadose) 120 mg PO DAILY [facility] Stop: 09/11/18 10:01 Methylprednisolone (Solu-Medrol) 40 mg IVP Q8 [facility] Last Admin: 09/04/18 14:08 Dose: 40 mg Pantoprazole Sodium (Protonix Ec Tab) 40 mg PO DAILY [facility] Last Admin: 09/04/18 10:40 Dose: 40 mg Polyethylene Glycol (Miralax) 17 gm PO DAILY [facility] Stop: 09/11/18 10:01 Saccharomyces Boulardii (Florastor) 250 mg PO BID [facility] Last Admin: 09/04/18 17:22 Dose: 250 mg Simethicone (Mylicon Liq) 40 mg PO QID [facility] Stop: 09/10/18 14:01 Last Admin: 09/04/18 14:08 Dose: 40 mg - Labs Labs: 09/04/18 07:49 09/04/18 07:49 Attending/Attestation - Attestation I have personally seen and examined this patient.: Yes I have fully participated in the care of the patient.: Yes I have reviewed all pertinent clinical information, including history, physical exam and plan: Yes Notes (Text): Patient seen, examined and case discussed with day-time resident. Patient with known hx of COPD, hypertension, diabetes, prior hx of CVA with left sided weakness, methadone dependence comes in for leg pains and associated dyspnea on exertion. Patient reports she feels constipated. Patient reports aissatou athing is better today. Patient's Tmax: 101.5 F yesterday. White count increasing (while on steroid). Renal function worsen. Will start gentle Iv hydration. Check vancomyin level. (had received one dose on admission for HCAP-PNA). consult nephrology. held hctz yesterday and hold cozaar today. Patient had a recent contrast study to rule out PE as well. Will continue IV abx to cover for multifocal pneumonia 1) Sepsis Multifocal Pneumonia Mycoplasma Pneumonia Assessment/Plan * Criteria: Fever (101.5F), leukocytosis, source of infection: pneumonia * CT Chest (09/03/18): no interval pulmonary embolus appreciated, persistent mediastinal and right hilar lymphadenopath, but without inerval increase in size in distribution. bilateral lower lobe atelectasis and possible infiltrates are identifed * Pulmonary (Dr. Zhang) on board--> help appreciated * Infectious Disease (Dr. Holliday) on board-->help appreciated * Risk factors: recent hospitalization, and steroids for bronchitis/COPD * Zosyn, Cipro, and Vancomycin * Adjusted by ID * Zosyn 3.375 IVPB Q8H (active since 09/03/18) * Avelox 400mg IVPB Daily (Active since 09/03/18) * Elevated procalcitonin * Prior Echo (07/29): normal LV systolic function, diastolic dysfunction, borderline dilated LA, mild TR * Positive for Mycoplasma * Negative for Legionella * Blood cultures: negative for 24 hours X2 2. COPD exacerbation Assessment/Plan * Pulmonary (Dr. Zhang) on board--> help appreciated * Solumedrol 40mg IV Q8H * Duoneb 3ml INH Q6 PRN shortness of breathe 3. Lower extremity edema Assessment/Plan * Venous doppler: negative SVT/negative DVTs 4. Hypertension Assessment/Plan * Diltiazem 180 mg PO daily * Hold HCTZ given TIM * held Cozaar 100mg Po daily 5. Diabetes Assessment/Plan * accuchecks ACHS * ISS - moderate * lantus 5 units [id number] * Novolin 70/30 40 units sub ACB * Novolin 70/30 30 units sub ACD * Cozaar 100mg PO daily * Uncontrolled diabetic: 9.3 6. Hyperlipidemia Assessment/Plan * Lipid panel in Jul 2018 * T, chol: 188, LDL: 113, HDL: 41 6. Methadone Dependence * on OP methadone at [facility]-->advised resident to call clinic to confirm dose prior to restarting the hospital * UDS confirms methadone 7. Acute Renal Failure Assessment/Plan * Start gentle iv hydration * Check vancomycin level * Patient had CT angio on admission to rule out PE * held hctz * will consult nephrology 8. Prophylasxis * GI PPx: Pantoprazole 40mg PO daily * DVT PPX: Heparin 5000 units Q8H * PICC line * PT/OT eval * SCDS b/l * Florastor 250mg PO BID Disposition: Patient to continue IV abx for pneumonia. Will start IV hydration to acute renal failure.
--- NOTE | 2018-09-04 17:26 | CP.PCM.PN ---
Subjective - Date & Time of Evaluation Date of Evaluation: 09/04/18 Time of Evaluation: 11:45 - Subjective Subjective: Patient was seen and examined at bedside, resting comfortably. Afebrile and in no acute distress. S/P PICC line. Reports SOB with exertion, cough and wheezing. Denies chest pain. Chest Xray - Right basilar linear scar/atelectasis. Resolved generalized opacity compared to prior exam. No new infiltrate. No significant pleural effusion Objective - Vital Signs/Intake and Output Vital Signs (last 24 hours): Temp Pulse Resp BP Pulse Ox 98.2 F 89 20 94/62 L 93 L 09/04/18 15:58 09/04/18 15:58 09/04/18 15:58 09/04/18 15:58 09/04/18 15:58 Intake and Output: 09/04/18 09/04/18 06:59 18:59 Intake Total 780 480 Balance 780 480 - Medications Medications: Current Medications Acetaminophen (Tylenol 325mg Tab) 650 mg PO Q6 PRN PRN Reason: Fever >100.4 F Last Admin: 09/03/18 05:08 Dose: 650 mg Albuterol/Ipratropium (Duoneb 3 Mg/0.5 Mg (3 Ml) Ud) 3 ml INH RQ6 PRN PRN Reason: Shortness of Breath Last Admin: 09/04/18 01:34 Dose: 3 ml Aspirin (Ecotrin) 81 mg PO DAILY [facility] Last Admin: 09/04/18 10:40 Dose: 81 mg Calcium Acetate (Phoslo) 667 mg PO BIDCC [facility] Last Admin: 09/04/18 17:23 Dose: 667 mg Dextrose (Dextrose 50% Inj) 0 ml IV STAT PRN; Protocol PRN Reason: Hypoglycemia Protocol Dextrose (Glutose 15) 0 gm PO ONCE PRN; Protocol PRN Reason: Hypoglycemia Protocol Diltiazem HCl (Cardizem Cd) 180 mg PO DAILY [facility] Last Admin: 09/04/18 10:40 Dose: 180 mg Glucagon (Glucagen Diagnostic Kit) 0 mg IM STAT PRN; Protocol PRN Reason: Hypoglycemia Protocol Heparin Sodium (Porcine) (Heparin) 5,000 units SC Q8H [facility] Last Admin: 09/04/18 14:09 Dose: 5,000 units Hydrochlorothiazide (Microzide) 12.5 mg PO DAILY [facility] Last Admin: 09/03/18 09:27 Dose: 12.5 mg Piperacillin Sod/Tazobactam (Sod 3.375 gm/ Sodium Chloride) 100 mls @ 200 mls/hr IVPB Q8H [facility]; Protocol Last Admin: 09/04/18 12:39 Dose: 200 mls/hr Dextrose (Dextrose 5% In Water 1000 Ml) 1,000 mls @ 0 mls/hr IV .Q0M PRN; Protocol PRN Reason: Hypoglycemia Protocol Moxifloxacin HCl (Avelox Iv 400mg/250ml Ns) 400 mg in 250 mls @ 167 mls/hr IVPB Q24H [facility]; Protocol Last Admin: 09/04/18 10:42 Dose: 167 mls/hr Insulin Aspart (Novolog Mix 70/30 (70/30 Units/Ml)) 30 units SC ACD [facility] Last Admin: 09/04/18 17:23 Dose: 30 units Insulin Aspart (Novolog Mix 70/30 (70/30 Units/Ml)) 40 units SC ACB [facility] Last Admin: 09/04/18 08:32 Dose: 40 units Insulin Glargine (Lantus) 5 unit SC Q12 [facility] Last Admin: 09/04/18 10:41 Dose: 5 units Insulin Human Regular (Novolin R) 0 unit SC ACHS [facility]; Protocol Last Admin: 09/04/18 17:22 Dose: 10 units Losartan Potassium (Cozaar) 100 mg PO DAILY [facility] Last Admin: 09/04/18 10:40 Dose: 100 mg Methadone HCl (Methadose) 120 mg PO DAILY [facility] Last Admin: 09/04/18 10:40 Dose: 120 mg Methadone HCl (Methadose) 120 mg PO DAILY [facility] Stop: 09/11/18 10:01 Methylprednisolone (Solu-Medrol) 40 mg IVP Q8 [facility] Last Admin: 09/04/18 14:08 Dose: 40 mg Pantoprazole Sodium (Protonix Ec Tab) 40 mg PO DAILY [facility] Last Admin: 09/04/18 10:40 Dose: 40 mg Polyethylene Glycol (Miralax) 17 gm PO DAILY [facility] Stop: 09/11/18 10:01 Saccharomyces Boulardii (Florastor) 250 mg PO BID [facility] Last Admin: 09/04/18 17:22 Dose: 250 mg Simethicone (Mylicon Liq) 40 mg PO QID [facility] Stop: 09/10/18 14:01 Last Admin: 09/04/18 14:08 Dose: 40 mg - Labs Labs: 09/04/18 07:49 09/04/18 07:49 Assessment and Plan (1) COPD exacerbation Status: Acute (2) SANTY (obstructive sleep apnea) Status: Acute (3) Pneumonia Status: Acute
[2018-09-04] MEDS ORDERED: Sodium Chloride 0.9% 1,000 ML IV SCH (18:30)
[2018-09-04 20:01] LABS: SQUAMOUS EPITHIAL 2 /hpf (0-5); URINE BILIRUBIN NEGATIVE (NEGATIVE); URINE BLOOD NEGATIVE (NEGATIVE); URINE CLARITY Clear (Clear); URINE COLOR Yellow (YELLOW); URINE GLUCOSE (UA) NORMAL (Normal); URINE HYALINE CAST 0-2 /lpf (0-2); URINE LEUKOCYTE ESTERASE NEG Leu/uL (Negative); URINE PROTEIN 1+ mg/dL (NEGATIVE); URINE UROBILINOGEN NORMAL mg/dL (0.2-1.0)
[2018-09-04 20:22] LABS: CREATININE, RANDOM URINE 114.2 mg/dL
--- NOTE | 2018-09-04 20:28 | CP.PCM.PN ---
Subjective - Date & Time of Evaluation Date of Evaluation: 09/04/18 Time of Evaluation: 09:00 - Subjective Subjective: renal function worse wbc up to 17k needs coverage for MRSA- Teflaro added Objective - Vital Signs/Intake and Output Vital Signs (last 24 hours): Temp Pulse Resp BP Pulse Ox 98.2 F 89 20 94/62 L 93 L 09/04/18 15:58 09/04/18 15:58 09/04/18 15:58 09/04/18 15:58 09/04/18 15:58 Intake and Output: 09/04/18 09/05/18 18:59 06:59 Intake Total 480 Balance 480 - Medications Medications: Current Medications Acetaminophen (Tylenol 325mg Tab) 650 mg PO Q6 PRN PRN Reason: Fever >100.4 F Last Admin: 09/03/18 05:08 Dose: 650 mg Albuterol/Ipratropium (Duoneb 3 Mg/0.5 Mg (3 Ml) Ud) 3 ml INH RQ6 PRN PRN Reason: Shortness of Breath Last Admin: 09/04/18 19:23 Dose: 3 ml Aspirin (Ecotrin) 81 mg PO DAILY [facility] Last Admin: 09/04/18 10:40 Dose: 81 mg Calcium Acetate (Phoslo) 667 mg PO BIDCC [facility] Last Admin: 09/04/18 17:23 Dose: 667 mg Dextrose (Dextrose 50% Inj) 0 ml IV STAT PRN; Protocol PRN Reason: Hypoglycemia Protocol Dextrose (Glutose 15) 0 gm PO ONCE PRN; Protocol PRN Reason: Hypoglycemia Protocol Diltiazem HCl (Cardizem Cd) 180 mg PO DAILY [facility] Last Admin: 09/04/18 10:40 Dose: 180 mg Glucagon (Glucagen Diagnostic Kit) 0 mg IM STAT PRN; Protocol PRN Reason: Hypoglycemia Protocol Heparin Sodium (Porcine) (Heparin) 5,000 units SC Q8H [facility] Last Admin: 09/04/18 14:09 Dose: 5,000 units Hydrochlorothiazide (Microzide) 12.5 mg PO DAILY [facility] Last Admin: 09/03/18 09:27 Dose: 12.5 mg Dextrose (Dextrose 5% In Water 1000 Ml) 1,000 mls @ 0 mls/hr IV .Q0M PRN; Protocol PRN Reason: Hypoglycemia Protocol Moxifloxacin HCl (Avelox Iv 400mg/250ml Ns) 400 mg in 250 mls @ 167 mls/hr IVPB Q24H [facility]; Protocol Last Admin: 09/04/18 10:42 Dose: 167 mls/hr Sodium Chloride (Sodium Chloride 0.9%) 1,000 mls @ 50 mls/hr IV .Q20H [facility] Stop: 09/05/18 00:01 Last Admin: 09/04/18 19:30 Dose: 50 mls/hr Insulin Aspart (Novolog Mix 70/30 (70/30 Units/Ml)) 30 units SC ACD [facility] Last Admin: 09/04/18 17:23 Dose: 30 units Insulin Aspart (Novolog Mix 70/30 (70/30 Units/Ml)) 40 units SC ACB [facility] Last Admin: 09/04/18 08:32 Dose: 40 units Insulin Glargine (Lantus) 5 unit SC Q12 [facility] Last Admin: 09/04/18 10:41 Dose: 5 units Insulin Human Regular (Novolin R) 0 unit SC ACHS [facility]; Protocol Last Admin: 09/04/18 17:22 Dose: 10 units Losartan Potassium (Cozaar) 100 mg PO DAILY [facility] Last Admin: 09/04/18 10:40 Dose: 100 mg Methadone HCl (Methadose) 120 mg PO DAILY [facility] Last Admin: 09/04/18 10:40 Dose: 120 mg Methadone HCl (Methadose) 120 mg PO DAILY [facility] Stop: 09/11/18 10:01 Methylprednisolone (Solu-Medrol) 40 mg IVP Q8 [facility] Last Admin: 09/04/18 14:08 Dose: 40 mg Pantoprazole Sodium (Protonix Ec Tab) 40 mg PO DAILY [facility] Last Admin: 09/04/18 10:40 Dose: 40 mg Polyethylene Glycol (Miralax) 17 gm PO DAILY [facility] Stop: 09/11/18 10:01 Saccharomyces Boulardii (Florastor) 250 mg PO BID [facility] Last Admin: 09/04/18 17:22 Dose: 250 mg Simethicone (Mylicon Liq) 40 mg PO QID [facility] Stop: 09/10/18 14:01 Last Admin: 09/04/18 19:00 Dose: 40 mg - Labs Labs: 09/04/18 07:49 09/04/18 07:49 - Constitutional Appears: Well - Head Exam Head Exam: ATRAUMATIC, NORMAL INSPECTION, NORMOCEPHALIC - Eye Exam Eye Exam: EOMI, Normal appearance, PERRL Pupil Exam: NORMAL ACCOMODATION, PERRL - ENT Exam ENT Exam: Mucous Membranes Moist, Normal Exam - Neck Exam Neck Exam: Full ROM, Normal Inspection. absent: Lymphadenopathy - Respiratory Exam Respiratory Exam: Clear to Ausculation Bilateral, NORMAL BREATHING PATTERN - Cardiovascular Exam Cardiovascular Exam: REGULAR RHYTHM, +S1, +S2. absent: Murmur - GI/Abdominal Exam GI & Abdominal Exam: Soft, Normal Bowel Sounds. absent: Tenderness - Rectal Exam Rectal Exam: NORMAL INSPECTION - Extremities Exam Extremities Exam: Full ROM, Normal Capillary Refill, Normal Inspection. absent: Joint Swelling, Pedal Edema - Back Exam Back Exam: NORMAL INSPECTION - Neurological Exam Neurological Exam: Alert, Awake, CN II-XII Intact, Normal Gait, Oriented x3 - Psychiatric Exam Psychiatric exam: Normal Affect, Normal Mood - Skin Skin Exam: Dry, Intact, Normal Color, Warm Assessment and Plan (1) Multifocal pneumonia Status: Acute (2) TIM (acute kidney injury) Status: Acute (3) Asthma without status asthmaticus Status: Acute (4) CO2 retention Status: Acute (5) COPD exacerbation Status: Acute (6) Cellulitis Status: Acute - Assessment and Plan (Free Text) Assessment: renal function worse wbc up to 17k on steroids needs coverage for MRSA- Teflaro added d/c zosyn
[2018-09-04] MEDS ORDERED: Aritificial Tears (15ml) OU ONE (22:33)
[2018-09-05] MEDS: MethylPREDNISolone 40 mg Vial IVP SCH ×3 (05:43→22:30)
[2018-09-05 07:02] LABS: BASO % 0.1 % (0.0-2.0); EOS % 0.1 % (0.0-4.0); HEMOGLOBIN 9.6 g/dL (11.0-16.0); LYMPH # 1.1 K/uL (1.0-4.3); LYMPH % 8.2 % (20.0-40.0); MEAN CELL VOLUME 69.9 fL (81.0-99.0); MEAN CORPUSCULAR HEMOGLOBIN 21.2 pg (27.0-31.0); MEAN CORPUSCULAR HGB CONC 30.3 g/dL (33.0-37.0); MEAN PLATELET VOLUME 9.8 fL (7.2-11.7); MONO # 0.5 K/uL (0.0-0.8); MONO % 3.6 % (0.0-10.0); NEUT # 11.3 K/uL (1.8-7.0); PLATELET COUNT 176 K/uL (130-400); RBC 4.52 Mil/uL (3.80-5.20); RED CELL DISTRIBUTION WIDTH 17.4 % (11.5-14.5); WHITE BLOOD COUNT 12.8 K/uL (4.8-10.8)
[2018-09-05 07:11] LABS: ALBUMIN 3.2 g/dL (3.5-5.0); CALCIUM 7.5 mg/dl (8.6-10.4)
[2018-09-05] MEDS: Albuterol-Ipratrop 3 mg / 0.5 (3 ml) UD INH PRN ×2 (07:30→13:40)
[2018-09-05] MEDS: (Novolog Mix 70/30) Insulin Aspart/Insulin Aspar 100 units/ml SC SCH ×2 (08:12→17:00)
[2018-09-05] MEDS: (Novolin R) Insulin Human Regular 100 units/ml vial SC SCH ×4 (08:12→22:30)
[2018-09-05 08:40] LABS: ANISOCYTOSIS SLIGHT; BANDS 1 % (0-2); LYMPHOCYTE 8 % (20-40); MONOCYTE 2 % (0-10); NEUTROPHIL 89 % (50-75); PLATELET ESTIMATE NORMAL (NORMAL); POIKILOCYTOSIS SLIGHT; TOTAL CELLS COUNTED 100
[2018-09-05 08:41] LABS: HYPOCHROMIC SLIGHT; LARGE PLATELETS PRESENT
[2018-09-05] MEDS: POLYETHYLENE GLYCOL 3350 17 GM/Dose PACKET PO SCH (09:52)
[2018-09-05] MEDS: Moxifloxacin IV 400mg/250ml NS 400 MG/250 ML BAG IVPB SCH (09:52)
[2018-09-05] MEDS: Methadone 40 mg Tab PO SCH (09:52)
[2018-09-05] MEDS: diltiaZEM 180 mg/24 Hours CD Cap PO SCH (09:52)
[2018-09-05] MEDS: Saccharomyces Boulardi 250 mg Cap PO SCH ×2 (09:52→19:00)
[2018-09-05] MEDS: (Lantus) Insulin Glargine, Recombinant SC SCH ×2 (09:53→22:29)
[2018-09-05] MEDS: Pantoprazole 40 mg EC Tab PO SCH (09:54)
[2018-09-05] MEDS ORDERED: Racepinephrine 2.25% Inhal Soln 0.5 ML UD INH ONE (10:15)
[2018-09-05] MEDS: Simethicone 80 mg Chewtab PO SCH ×4 (10:33→22:30)
--- NOTE | 2018-09-05 10:45 | CP.PCM.CON ---
<Kenny Miramontes - Last Filed: 09/05/18 12:35> History of Present Illness - History of Present Illness History of Present Illness: Nephrology Consult Note for Dr. Kumar Patient is a 58 yo with PMH of TIA, CVA 2011, Obesity, DM, HTN, HLD, and asthma presents to [facility] due to dyspnea on exertion and b/l LE swelling/pain. CTA of the chest was performed, which ruled out PE. Venous duplex of the lower extremities were negative for DVT. Patient was subsequently found to be septic 2/2 mycoplasma pneumonia. Patient was placed initially placed on IV antibiotics including Vancomycin, Zosyn, and Azithromycin. Subsequently, she had an acute rise in her creatinine. Nephrology was consulted for ARF. Patient denied CP, SOB, n/v/d, abdominal pain, fever, chills, JOHN, dysuria, hemauria, dizziness, and JOHN. PMH: TIA, CVA 2011, Obesity, DM, HTN, HLD, asthma Surg: , sebaceous cyst removal, skin graft All: NKDA SH: Smoked 1 pack for 30+ years, previous heroine user (inhalation), previous cocaine user (smoke) FHx: Non-contributory Review of Systems - Review of Systems All systems: reviewed and no additional remarkable complaints except (12 point ROS reviewed and is negative other than what is stated in HPI.) Past Patient History - Infectious Disease Hx of Infectious Diseases: None - Past Medical History & Family History Past Medical History?: Yes - Past Social History Smoking Status: Never Smoked - CARDIAC Hx Cardiac Disorders: Yes Hx Hypercholesterolemia: Yes Hx Hypertension: Yes - PULMONARY Hx Chronic Obstructive Pulmonary Disease (COPD): Yes (USE OF CIPAP HOME O2) - NEUROLOGICAL Hx Neurological Disorder: Yes Hx Migraine: Yes - HEENT Hx HEENT Problems: Yes Other/Comment: wears prescription eyeglasses - RENAL Hx Chronic Kidney Disease: No - ENDOCRINE/METABOLIC Hx Diabetes Mellitus Type 1: Yes - HEMATOLOGICAL/ONCOLOGICAL Hx Blood Disorders: No Hx Blood Transfusions: No Hx Blood Transfusion Reaction: No - INTEGUMENTARY Hx Dermatological Problems: No - MUSCULOSKELETAL/RHEUMATOLOGICAL Hx Arthritis: Yes - GASTROINTESTINAL Hx Gastrointestinal Disorders: Yes Hx Constipation: Yes - GENITOURINARY/GYNECOLOGICAL Hx Genitourinary Disorders: No - PSYCHIATRIC Hx Psychophysiologic Disorder: Yes Hx Anxiety: Yes (NO MED) Hx Substance Use: Yes - SURGICAL HISTORY Hx Surgeries: Yes Hx Section: Yes Other/Comment: SKIN GRAFT bilat legs - ANESTHESIA Hx Anesthesia: Yes Hx Anesthesia Reactions: No Hx Malignant Hyperthermia: No Meds Allergies/Adverse Reactions: Allergies Allergy/AdvReac Type Severity Reaction Status Date / Time No Known Allergies Allergy Verified 09/02/18 17:36 - Medications Medications: Current Medications Acetaminophen (Tylenol 325mg Tab) 650 mg PO Q6 PRN PRN Reason: Fever >100.4 F Last Admin: 09/03/18 05:08 Dose: 650 mg Albuterol/Ipratropium (Duoneb 3 Mg/0.5 Mg (3 Ml) Ud) 3 ml INH RQ6 PRN PRN Reason: Shortness of Breath Last Admin: 09/05/18 07:30 Dose: 3 ml Aspirin (Ecotrin) 81 mg PO DAILY [facility] Last Admin: 09/05/18 09:52 Dose: 81 mg Calcium Acetate (Phoslo) 667 mg PO BIDCC [facility] Last Admin: 09/05/18 08:13 Dose: 667 mg Dextrose (Dextrose 50% Inj) 0 ml IV STAT PRN; Protocol PRN Reason: Hypoglycemia Protocol Dextrose (Glutose 15) 0 gm PO ONCE PRN; Protocol PRN Reason: Hypoglycemia Protocol Diltiazem HCl (Cardizem Cd) 180 mg PO DAILY [facility] Last Admin: 09/05/18 09:52 Dose: 180 mg Glucagon (Glucagen Diagnostic Kit) 0 mg IM STAT PRN; Protocol PRN Reason: Hypoglycemia Protocol Heparin Sodium (Porcine) (Heparin) 5,000 units SC Q8H [facility] Last Admin: 09/05/18 05:43 Dose: 5,000 units Hydrochlorothiazide (Microzide) 12.5 mg PO DAILY [facility] Last Admin: 09/03/18 09:27 Dose: 12.5 mg Dextrose (Dextrose 5% In Water 1000 Ml) 1,000 mls @ 0 mls/hr IV .Q0M PRN; Protocol PRN Reason: Hypoglycemia Protocol Moxifloxacin HCl (Avelox Iv 400mg/250ml Ns) 400 mg in 250 mls @ 167 mls/hr IVPB Q24H [facility]; Protocol Last Admin: 09/05/18 09:52 Dose: 167 mls/hr Ceftaroline Fosamil 400 mg/ (Sodium Chloride) 100 mls @ 100 mls/hr IVPB Q12H [facility]; Protocol Last Admin: 09/05/18 08:30 Dose: 100 mls/hr Insulin Aspart (Novolog Mix 70/30 (70/30 Units/Ml)) 30 units SC ACD [facility] Last Admin: 09/04/18 17:23 Dose: 30 units Insulin Aspart (Novolog Mix 70/30 (70/30 Units/Ml)) 40 units SC ACB [facility] Last Admin: 09/05/18 08:12 Dose: 40 units Insulin Glargine (Lantus) 5 unit SC Q12 [facility] Last Admin: 09/05/18 09:53 Dose: 5 units Insulin Human Regular (Novolin R) 0 unit SC ACHS [facility]; Protocol Last Admin: 09/05/18 08:12 Dose: 8 units Losartan Potassium (Cozaar) 100 mg PO DAILY [facility] Last Admin: 09/04/18 10:40 Dose: 100 mg Methadone HCl (Methadose) 120 mg PO DAILY [facility] Stop: 09/11/18 10:01 Last Admin: 09/05/18 09:52 Dose: 120 mg Methylprednisolone (Solu-Medrol) 40 mg IVP Q8 [facility] Last Admin: 09/05/18 05:43 Dose: 40 mg Pantoprazole Sodium (Protonix Ec Tab) 40 mg PO DAILY [facility] Last Admin: 09/05/18 09:54 Dose: 40 mg Polyethylene Glycol (Miralax) 17 gm PO DAILY [facility] Stop: 09/11/18 10:01 Last Admin: 09/05/18 09:52 Dose: 17 gm Saccharomyces Boulardii (Florastor) 250 mg PO BID [facility] Last Admin: 09/05/18 09:52 Dose: 250 mg Simethicone (Mylicon Chew Tab) 80 mg PO QID [facility] Stop: 09/10/18 14:01 Physical Exam - Constitutional Appears: No Acute Distress - Head Exam Head Exam: NORMAL INSPECTION - Eye Exam Eye Exam: Normal appearance Pupil Exam: NORMAL ACCOMODATION - ENT Exam ENT Exam: Mucous Membranes Moist, Normal Exam - Neck Exam Neck exam: Positive for: Normal Inspection - Respiratory Exam Respiratory Exam: Rales, Wheezes. absent: Decreased Breath Sounds, Rhonchi, Respiratory Distress - Cardiovascular Exam Cardiovascular Exam: RRR, +S1, +S2. absent: Diastolic murmur, Gallop, Rubs, Systolic Murmur - GI/Abdominal Exam GI & Abdominal Exam: Soft. absent: Distended, Guarding, Rebound, Tenderness - Extremities Exam Extremities exam: Positive for: pedal edema (2+) - Back Exam Back exam: NORMAL INSPECTION - Neurological Exam Neurological exam: Alert, Oriented x3 - Psychiatric Exam Psychiatric exam: Normal Affect, Normal Mood - Skin Skin Exam: Dry, Intact, Normal Color, Warm Results - Vital Signs Recent Vital Signs: Last Vital Signs Temp 98.6 F 09/05/18 07:20 Pulse 78 09/05/18 09:51 Resp 18 09/05/18 07:20 BP 125/79 09/05/18 09:51 Pulse Ox 96 09/05/18 07:20 - Labs Result Diagrams: 09/05/18 06:48 09/05/18 06:48 Labs: Laboratory Results - last 24 hr 09/04/18 09/04/18 09/04/18 07:49 07:49 11:12 WBC RBC Hgb Hct MCV MCH MCHC RDW Plt Count MPV Neut % (Auto) Lymph % (Auto) [place] % (Auto) Eos % (Auto) Baso % (Auto) Neut # (Auto) Lymph # (Auto) [place] # (Auto) Eos # (Auto) Baso # (Auto) Neutrophils % (Manual) Band Neutrophils % Lymphocytes % (Manual) Monocytes % (Manual) Platelet Estimate Large Platelets Hypochromasia (manual) Poikilocytosis (manual Anisocytosis (manual) Sodium Potassium Chloride Carbon Dioxide Anion Gap BUN Creatinine Est GFR ( Amer) Est GFR (Non-Af Amer) POC Glucose (mg/dL) 344 H Random Glucose Calcium Phosphorus Magnesium Total Bilirubin AST ALT Alkaline Phosphatase Total Protein Albumin Globulin Albumin/Globulin Ratio Urine Color Urine Clarity Urine pH Ur Specific [place] Urine Protein Urine Glucose (UA) Urine Ketones Urine Blood Urine Nitrate Urine Bilirubin Urine Urobilinogen Ur Leukocyte Esterase Urine WBC (Auto) Urine RBC (Auto) Ur Squamous Epith Cells Hyaline Casts Ur Random Creatinine Ur Random Sodium Random Vancomycin Hepatitis A IgM Ab Negative Hep Bs Antigen Negative Hep B Core IgM Ab Negative Hepatitis C Antibody Negative Mycoplasma pneumon IgM Positive H 09/04/18 09/04/18 09/04/18 16:24 19:21 19:25 WBC RBC Hgb Hct MCV MCH MCHC RDW Plt Count MPV Neut % (Auto) Lymph % (Auto) [place] % (Auto) Eos % (Auto) Baso % (Auto) Neut # (Auto) Lymph # (Auto) [place] # (Auto) Eos # (Auto) Baso # (Auto) Neutrophils % (Manual) Band Neutrophils % Lymphocytes % (Manual) Monocytes % (Manual) Platelet Estimate Large Platelets Hypochromasia (manual) Poikilocytosis (manual Anisocytosis (manual) Sodium Potassium Chloride Carbon Dioxide Anion Gap BUN Creatinine Est GFR ( Amer) Est GFR (Non-Af Amer) POC Glucose (mg/dL) 430 H* Random Glucose Calcium Phosphorus Magnesium Total Bilirubin AST ALT Alkaline Phosphatase Total Protein Albumin Globulin Albumin/Globulin Ratio Urine Color Urine Clarity Urine pH Ur Specific [place] Urine Protein Urine Glucose (UA) Urine Ketones Urine Blood Urine Nitrate Urine Bilirubin Urine Urobilinogen Ur Leukocyte Esterase Urine WBC (Auto) Urine RBC (Auto) Ur Squamous Epith Cells Hyaline Casts Ur Random Creatinine 114.2 Ur Random Sodium 21 Random Vancomycin < 5.0 Hepatitis A IgM Ab Hep Bs Antigen Hep B Core IgM Ab Hepatitis C Antibody Mycoplasma pneumon IgM 09/04/18 09/04/18 09/05/18 19:25 21:05 06:43 WBC RBC Hgb Hct MCV MCH MCHC RDW Plt Count MPV Neut % (Auto) Lymph % (Auto) [place] % (Auto) Eos % (Auto) Baso % (Auto) Neut # (Auto) Lymph # (Auto) [place] # (Auto) Eos # (Auto) Baso # (Auto) Neutrophils % (Manual) Band Neutrophils % Lymphocytes % (Manual) Monocytes % (Manual) Platelet Estimate Large Platelets Hypochromasia (manual) Poikilocytosis (manual Anisocytosis (manual) Sodium Potassium Chloride Carbon Dioxide Anion Gap BUN Creatinine Est GFR ( Amer) Est GFR (Non-Af Amer) POC Glucose (mg/dL) 387 H 383 H Random Glucose Calcium Phosphorus Magnesium Total Bilirubin AST ALT Alkaline Phosphatase Total Protein Albumin Globulin Albumin/Globulin Ratio Urine Color Yellow Urine Clarity Clear Urine pH 5.0 Ur Specific [place] 1.018 Urine Protein 1+ H Urine Glucose (UA) Normal Urine Ketones Negative Urine Blood Negative Urine Nitrate Negative Urine Bilirubin Negative Urine Urobilinogen Normal Ur Leukocyte Esterase Neg Urine WBC (Auto) 3 Urine RBC (Auto) 1 Ur Squamous Epith Cells 2 Hyaline Casts 0-2 Ur Random Creatinine Ur Random Sodium Random Vancomycin Hepatitis A IgM Ab Hep Bs Antigen Hep B Core IgM Ab Hepatitis C Antibody Mycoplasma pneumon IgM 09/05/18 09/05/18 06:48 06:48 WBC 12.8 H RBC 4.52 Hgb 9.6 L Hct 31.6 L MCV 69.9 L MCH 21.2 L MCHC 30.3 L RDW 17.4 H Plt Count 176 MPV 9.8 Neut % (Auto) 88.0 H Lymph % (Auto) 8.2 L [place] % (Auto) 3.6 Eos % (Auto) 0.1 Baso % (Auto) 0.1 Neut # (Auto) 11.3 H Lymph # (Auto) 1.1 [place] # (Auto) 0.5 Eos # (Auto) 0.0 Baso # (Auto) 0.0 Neutrophils % (Manual) 89 H Band Neutrophils % 1 Lymphocytes % (Manual) 8 L Monocytes % (Manual) 2 Platelet Estimate Normal Large Platelets Present Hypochromasia (manual) Slight Poikilocytosis (manual Slight Anisocytosis (manual) Slight Sodium 137 Potassium 4.7 Chloride 95 L Carbon Dioxide 31 H Anion Gap 15 BUN 60 H Creatinine 1.7 H Est GFR ( Amer) 37 Est GFR (Non-Af Amer) 31 POC Glucose (mg/dL) Random Glucose 374 H Calcium 7.5 L Phosphorus 4.6 H Magnesium 2.2 Total Bilirubin 0.3 AST 18 ALT 31 Alkaline Phosphatase 66 Total Protein 6.3 Albumin 3.2 L Globulin 3.1 Albumin/Globulin Ratio 1.0 Urine Color Urine Clarity Urine pH Ur Specific [place] Urine Protein Urine Glucose (UA) Urine Ketones Urine Blood Urine Nitrate Urine Bilirubin Urine Urobilinogen Ur Leukocyte Esterase Urine WBC (Auto) Urine RBC (Auto) Ur Squamous Epith Cells Hyaline Casts Ur Random Creatinine Ur Random Sodium Random Vancomycin Hepatitis A IgM Ab Hep Bs Antigen Hep B Core IgM Ab Hepatitis C Antibody Mycoplasma pneumon IgM Assessment & Plan - Assessment and Plan (Free Text) Assessment: 58 yo F with PMH of TIA, CVA 2011, Obesity, DM, HTN, HLD, and asthma admitted for sepsis 2/2 myoplasma pneumonia and subsequently developed acute renal failure s/p CT with contrast. Plan: 1. Acute renal failure - Likely 2/2 FLORINDA - Previous history of FLORINDA; would adequately ppx if any future contrast are needed - Renal function improving, Cr 1.6 today from 2.1 - Avoid nephrotoxic agents 2. Sepsis 2/2 Mycoplasma Pneumonia - CTA chest negative for PE, showed bilateral lower lobe infiltrates - Mycoplasma pneumoniae IgM positive - Cont IV abx renally dosed per ID 3. HTN - Agree with holding HCTZ and Losartan; consider restarting outpatient - BP currently normotensive 4. IDDM - Cont medical management per primary Case reviewed with attending, Dr. Kumar. Prashanth Miramontes, DO PGY2 <Tavo Kumar - Last Filed: 09/06/18 08:41> Meds - Medications Medications: Current Medications Acetaminophen (Tylenol 325mg Tab) 650 mg PO Q6 PRN PRN Reason: Fever >100.4 F Last Admin: 09/03/18 05:08 Dose: 650 mg Albuterol/Ipratropium (Duoneb 3 Mg/0.5 Mg (3 Ml) Ud) 3 ml INH RQ6 PRN PRN Reason: Shortness of Breath Last Admin: 09/05/18 13:40 Dose: 3 ml Artificial Tears (Artificial Tears) 1 ml OU BID [facility] Last Admin: 09/05/18 19:00 Dose: 1 drop Aspirin (Ecotrin) 81 mg PO DAILY [facility] Last Admin: 09/05/18 09:52 Dose: 81 mg Calcium Acetate (Phoslo) 667 mg PO BIDCC [facility] Last Admin: 09/06/18 08:10 Dose: 667 mg Dextrose (Dextrose 50% Inj) 0 ml IV STAT PRN; Protocol PRN Reason: Hypoglycemia Protocol Dextrose (Glutose 15) 0 gm PO ONCE PRN; Protocol PRN Reason: Hypoglycemia Protocol Diltiazem HCl (Cardizem Cd) 180 mg PO DAILY [facility] Last Admin: 09/05/18 09:52 Dose: 180 mg Furosemide (Lasix) 20 mg PO BID [facility] Glucagon (Glucagen Diagnostic Kit) 0 mg IM STAT PRN; Protocol PRN Reason: Hypoglycemia Protocol Guaifenesin (Mucinex La) 600 mg PO Q12 [facility] Last Admin: 09/05/18 22:30 Dose: 600 mg Heparin Sodium (Porcine) (Heparin) 5,000 units SC Q8H [facility] Last Admin: 09/06/18 05:22 Dose: 5,000 units Hydrochlorothiazide (Microzide) 12.5 mg PO DAILY [facility] Last Admin: 09/03/18 09:27 Dose: 12.5 mg Moxifloxacin HCl (Avelox Iv 400mg/250ml Ns) 400 mg in 250 mls @ 167 mls/hr IVPB Q24H [facility]; Protocol Last Admin: 09/05/18 09:52 Dose: 167 mls/hr Ceftaroline Fosamil 300 mg/ (Sodium Chloride) 100 mls @ 100 mls/hr IVPB Q12H [facility]; Protocol Last Admin: 09/05/18 22:30 Dose: 100 mls/hr Insulin Aspart (Novolog Mix 70/30 (70/30 Units/Ml)) 30 units SC ACD [facility] Last Admin: 09/05/18 17:00 Dose: 30 units Insulin Aspart (Novolog Mix 70/30 (70/30 Units/Ml)) 40 units SC ACB [facility] Last Admin: 09/06/18 08:10 Dose: 40 units Insulin Glargine (Lantus) 5 unit SC Q12 [facility] Last Admin: 09/05/18 22:29 Dose: 5 units Insulin Human Regular (Novolin R) 0 unit SC ACHS [facility]; Protocol Last Admin: 09/06/18 08:10 Dose: 10 units Losartan Potassium (Cozaar) 100 mg PO DAILY [facility] Last Admin: 09/04/18 10:40 Dose: 100 mg Methadone HCl (Methadose) 120 mg PO DAILY [facility] Stop: 09/11/18 10:01 Last Admin: 09/05/18 09:52 Dose: 120 mg Methylprednisolone (Solu-Medrol) 40 mg IVP Q8 [facility] Last Admin: 09/06/18 07:08 Dose: 40 mg Pantoprazole Sodium (Protonix Ec Tab) 40 mg PO DAILY [facility] Last Admin: 09/05/18 09:54 Dose: 40 mg Polyethylene Glycol (Miralax) 17 gm PO DAILY [facility] Stop: 09/11/18 10:01 Last Admin: 09/05/18 09:52 Dose: 17 gm Saccharomyces Boulardii (Florastor) 250 mg PO BID [facility] Last Admin: 09/05/18 19:00 Dose: 250 mg Simethicone (Mylicon Chew Tab) 80 mg PO QID [facility] Stop: 09/10/18 14:01 Last Admin: 09/05/18 22:30 Dose: 80 mg Vitamin A (Vitamin A & D Oint Ud Foilpak) 1 ea TOP BID [facility] Last Admin: 09/05/18 19:00 Dose: 1 ea Results - Vital Signs Recent Vital Signs: Last Vital Signs Temp 98.1 F 09/05/18 23:25 Pulse 85 09/06/18 05:39 Resp 20 09/05/18 23:25 BP 101/72 09/05/18 23:25 Pulse Ox 99 09/05/18 23:25 - Labs Result Diagrams: 09/06/18 06:57 09/06/18 06:57 Labs: Laboratory Results - last 24 hr 09/04/18 09/04/18 09/05/18 09:58 19:49 06:48 WBC RBC Hgb Hct MCV MCH MCHC RDW Plt Count MPV Neut % (Auto) Lymph % (Auto) [place] % (Auto) Eos % (Auto) Baso % (Auto) Neut # (Auto) Lymph # (Auto) [place] # (Auto) Eos # (Auto) Baso # (Auto) Neutrophils % (Manual) 89 H Band Neutrophils % 1 Lymphocytes % (Manual) 8 L Monocytes % (Manual) 2 Platelet Estimate Normal Large Platelets Present Hypochromasia (manual) Slight Poikilocytosis (manual Slight Anisocytosis (manual) Slight Sodium Potassium Chloride Carbon Dioxide Anion Gap BUN Creatinine Est GFR ( Amer) Est GFR (Non-Af Amer) POC Glucose (mg/dL) Random Glucose Calcium Phosphorus Magnesium Total Bilirubin AST ALT Alkaline Phosphatase Total Protein Albumin Globulin Albumin/Globulin Ratio PTH Intact Whole Molec 173 H U Random Total Protein 567 H 09/05/18 09/05/18 09/05/18 11:12 16:27 21:18 WBC RBC Hgb Hct MCV MCH MCHC RDW Plt Count MPV Neut % (Auto) Lymph % (Auto) [place] % (Auto) Eos % (Auto) Baso % (Auto) Neut # (Auto) Lymph # (Auto) [place] # (Auto) Eos # (Auto) Baso # (Auto) Neutrophils % (Manual) Band Neutrophils % Lymphocytes % (Manual) Monocytes % (Manual) Platelet Estimate Large Platelets Hypochromasia (manual) Poikilocytosis (manual Anisocytosis (manual) Sodium Potassium Chloride Carbon Dioxide Anion Gap BUN Creatinine Est GFR ( Amer) Est GFR (Non-Af Amer) POC Glucose (mg/dL) 416 H* 328 H > 500 H* Random Glucose Calcium Phosphorus Magnesium Total Bilirubin AST ALT Alkaline Phosphatase Total Protein Albumin Globulin Albumin/Globulin Ratio PTH Intact Whole Molec U Random Total Protein 09/05/18 09/06/18 09/06/18 21:20 06:57 06:57 WBC 11.7 H RBC 4.79 Hgb 10.1 L Hct 33.5 L MCV 69.9 L MCH 21.0 L MCHC 30.1 L RDW 17.8 H Plt Count 211 MPV 10.2 Neut % (Auto) 85.1 H Lymph % (Auto) 9.9 L [place] % (Auto) 4.5 Eos % (Auto) 0.0 Baso % (Auto) 0.5 Neut # (Auto) 10.0 H Lymph # (Auto) 1.2 [place] # (Auto) 0.5 Eos # (Auto) 0.0 Baso # (Auto) 0.1 Neutrophils % (Manual) Band Neutrophils % Lymphocytes % (Manual) Monocytes % (Manual) Platelet Estimate Large Platelets Hypochromasia (manual) Poikilocytosis (manual Anisocytosis (manual) Sodium 139 Potassium 4.6 Chloride 96 L Carbon Dioxide 34 H Anion Gap 13 BUN 42 H Creatinine 1.3 H Est GFR ( Amer) 51 Est GFR (Non-Af Amer) 42 POC Glucose (mg/dL) 493 H* Random Glucose 450 H* D Calcium 8.7 Phosphorus 2.9 Magnesium 2.3 Total Bilirubin 0.3 AST 16 ALT 29 Alkaline Phosphatase 83 Total Protein 7.0 Albumin 3.5 Globulin 3.5 Albumin/Globulin Ratio 1.0 PTH Intact Whole Molec U Random Total Protein Attending/Attestation - Attestation I have personally seen and examined this patient.: Yes I have fully participated in the care of the patient.: Yes I have reviewed all pertinent clinical information: Yes Notes (Text): Patient seen and examined; I agree with the resident's note as above with the following additions/edits: 58 yo F with PMH of TIA, CVA (2011), Obesity, DM, HTN, HLD, and COPD with chronic hypercapnea, on BIPAP/CPAP at home, admitted COPD exacerbation/PNA and cellulitis, nephrology being consulted for acute renal failure; TIM, likely ATN secondary to contrast nephropathy after receiving CTA to r/o PE (negative); renal function now improving; stable electrolytes; of note, patient also appeared to have episode of contrast induced nephropathy earlier this year and so is especially at risk for the same with future IV dye studies; Still with dyspnea; signs of volume excess with edematous legs and elevated JVD; likely some element of CHF exacerbation with previous echo showing preserved EF but had diastolic dysfunction and mildly elevated right sided pressure; renal failure contributing to volume excess, will benefit from gentle diuretics; Otherwise, BP has been at lower end of normal; holding losartan; Thank you for this referral, we will continue to follow.
--- NOTE | 2018-09-05 13:22 | CP.PCM.PN ---
Subjective - Date & Time of Evaluation Date of Evaluation: 09/05/18 Time of Evaluation: 13:20 - Subjective Subjective: Medicine - Dr. Cotton's Service Patient still short of breath ambulating to go to bathroom and is complaining of wheezing. She endorsed infectious disease physician visiting her last night and changing her abx. Otherwise denies chest pain, palpitations, abdominal pain. Objective - Vital Signs/Intake and Output Vital Signs (last 24 hours): Temp Pulse Resp BP Pulse Ox 98.6 F 94 H 18 125/79 96 09/05/18 07:20 09/05/18 12:00 09/05/18 07:20 09/05/18 09:51 09/05/18 07:20 Intake and Output: 09/05/18 09/05/18 06:59 18:59 Intake Total 640 Balance 640 - Medications Medications: Current Medications Acetaminophen (Tylenol 325mg Tab) 650 mg PO Q6 PRN PRN Reason: Fever >100.4 F Last Admin: 09/03/18 05:08 Dose: 650 mg Albuterol/Ipratropium (Duoneb 3 Mg/0.5 Mg (3 Ml) Ud) 3 ml INH RQ6 PRN PRN Reason: Shortness of Breath Last Admin: 09/05/18 07:30 Dose: 3 ml Aspirin (Ecotrin) 81 mg PO DAILY [facility] Last Admin: 09/05/18 09:52 Dose: 81 mg Calcium Acetate (Phoslo) 667 mg PO BIDCC [facility] Last Admin: 09/05/18 08:13 Dose: 667 mg Dextrose (Dextrose 50% Inj) 0 ml IV STAT PRN; Protocol PRN Reason: Hypoglycemia Protocol Dextrose (Glutose 15) 0 gm PO ONCE PRN; Protocol PRN Reason: Hypoglycemia Protocol Diltiazem HCl (Cardizem Cd) 180 mg PO DAILY [facility] Last Admin: 09/05/18 09:52 Dose: 180 mg Glucagon (Glucagen Diagnostic Kit) 0 mg IM STAT PRN; Protocol PRN Reason: Hypoglycemia Protocol Heparin Sodium (Porcine) (Heparin) 5,000 units SC Q8H [facility] Last Admin: 09/05/18 05:43 Dose: 5,000 units Hydrochlorothiazide (Microzide) 12.5 mg PO DAILY [facility] Last Admin: 09/03/18 09:27 Dose: 12.5 mg Dextrose (Dextrose 5% In Water 1000 Ml) 1,000 mls @ 0 mls/hr IV .Q0M PRN; Protocol PRN Reason: Hypoglycemia Protocol Moxifloxacin HCl (Avelox Iv 400mg/250ml Ns) 400 mg in 250 mls @ 167 mls/hr IVPB Q24H [facility]; Protocol Last Admin: 09/05/18 09:52 Dose: 167 mls/hr Ceftaroline Fosamil 400 mg/ (Sodium Chloride) 100 mls @ 100 mls/hr IVPB Q12H [facility]; Protocol Last Admin: 09/05/18 08:30 Dose: 100 mls/hr Insulin Aspart (Novolog Mix 70/30 (70/30 Units/Ml)) 30 units SC ACD [facility] Last Admin: 09/04/18 17:23 Dose: 30 units Insulin Aspart (Novolog Mix 70/30 (70/30 Units/Ml)) 40 units SC ACB [facility] Last Admin: 09/05/18 08:12 Dose: 40 units Insulin Glargine (Lantus) 5 unit SC Q12 [facility] Last Admin: 09/05/18 09:53 Dose: 5 units Insulin Human Regular (Novolin R) 0 unit SC ACHS [facility]; Protocol Last Admin: 09/05/18 12:16 Dose: 10 units Losartan Potassium (Cozaar) 100 mg PO DAILY [facility] Last Admin: 09/04/18 10:40 Dose: 100 mg Methadone HCl (Methadose) 120 mg PO DAILY [facility] Stop: 09/11/18 10:01 Last Admin: 09/05/18 09:52 Dose: 120 mg Methylprednisolone (Solu-Medrol) 40 mg IVP Q8 [facility] Last Admin: 09/05/18 05:43 Dose: 40 mg Pantoprazole Sodium (Protonix Ec Tab) 40 mg PO DAILY [facility] Last Admin: 09/05/18 09:54 Dose: 40 mg Polyethylene Glycol (Miralax) 17 gm PO DAILY [facility] Stop: 09/11/18 10:01 Last Admin: 09/05/18 09:52 Dose: 17 gm Saccharomyces Boulardii (Florastor) 250 mg PO BID [facility] Last Admin: 09/05/18 09:52 Dose: 250 mg Simethicone (Mylicon Chew Tab) 80 mg PO QID [facility] Stop: 09/10/18 14:01 Last Admin: 09/05/18 10:33 Dose: 80 mg - Labs Labs: 10/26/18 06:48 09/05/18 06:48 - Constitutional Appears: Well, Non-toxic - Head Exam Head Exam: ATRAUMATIC, NORMAL INSPECTION - Eye Exam Eye Exam: EOMI, Normal appearance Pupil Exam: PERRL - ENT Exam ENT Exam: Mucous Membranes Moist, Normal Exam - Neck Exam Neck Exam: Full ROM. absent: Lymphadenopathy - Respiratory Exam Respiratory Exam: Wheezes - Cardiovascular Exam Cardiovascular Exam: REGULAR RHYTHM - GI/Abdominal Exam GI & Abdominal Exam: Soft, Normal Bowel Sounds - Extremities Exam Additional comments: bilateral pitting edema tibias 1+ - Neurological Exam Neurological Exam: Alert, Awake, Oriented x3 - Psychiatric Exam Psychiatric exam: Normal Affect, Normal Mood Assessment and Plan - Assessment and Plan (Free Text) Assessment: 58 y/o female with PMHx of CVA 2011, COPD, asthma, DM, HTN, HLD, and anemia presented to the ED on 09/02 with bilateral leg pain and shortness of breath with walking minimally. PE and DVT had been r/o and now on BiPAP. 1) sepsis - fever and leukocytosis 2/2 mycoplasma PNA -Tmax 101.5, then 100.7 on 09/03, 6am shortly after first dose of zosyn. PICC inserted 09/03 -zosyn 3.375 q8h started 09/03 discontinued 09/04 and ceftaroline 400 mg started for MRSA coverage per Dr. Holliday (ID) -follow ID recs Dr. Holliday - who added moxi 400 mg q24 -florastor 250 mg PO BID -elevated procaclitonin 21.[address] Zhang (pulm), ordered new one for 09/06 to check progress of infection -legionella AB negative 09/03 -Bcx no growth after 24h 2) COPD/asthma -duonebs q6h PRN -BiPAB at night -solumedrol 40 mg IV q8h -follow Dr. Zhang recs pulm 3) TIM 2/2 FLORINDA most likely per renal -hyperphos and hypocalcemia: Phos 5.5 -> 4.6 (high) and Ca 7.8 09/03 then decreased to 7.5 (low) -PTH order pending - hypoparathyroidism possible/renal failure -phoslo 667 mg x 1 as needed -trend electrolytes 4) DM -novolog 70/30, 40 ACB and 30 ACD -lantus q12h 5units -patient on HARJINDER - losartan 100 mg daily renoprotection -f/u A1c 5) HTN -dilt 180 mg PO (home med) -losartan 100 mg daily -HCTZ 12.5 mg daily withheld given TIM 7) polysubstance use -counseling ordered -UDS positive for methadone, on methadone 120 mg maintenance (dosage confirmed by RN who called the clinic) 8) constipation -simethicone 40 mg QID PRN -miralax daily -dulcolax suppository cancelled due to possibility of increased resistance 9) URI vs. allergic rhinitis -artificial tears -vitamin A and D ointment for lips -mucinex 600mg PO BID DVT ppx: heparin 5000mg sq GI ppx: protonix 40 mg PO case discussed with Dr. Yury Diego, DO PGY-1
--- NOTE | 2018-09-05 13:52 | CP.PCM.PN ---
Subjective - Date & Time of Evaluation Date of Evaluation: 09/05/18 Time of Evaluation: 08:20 - Subjective Subjective: Patient was seen and examined at bedside, sitting comfortably in bed. Afebrile and in no acute distress. S/p PICC line yesterda 09/05. Reports SOB on exertion, improving. Admits to wheezing, cough and scratchy throat. Denies chest pain. Positive Mycoplasma pneumonia IgM - Infectious disease on case. PLAN - Continue current nebulizer therapy - Continue IV antibiotics as ID recommendations - Racemic Epi ordered. Objective - Vital Signs/Intake and Output Vital Signs (last 24 hours): Temp Pulse Resp BP Pulse Ox 98.6 F 94 H 18 125/79 96 09/05/18 07:20 09/05/18 12:00 09/05/18 07:20 09/05/18 09:51 09/05/18 07:20 Intake and Output: 09/05/18 09/05/18 06:59 18:59 Intake Total 640 Balance 640 - Medications Medications: Current Medications Acetaminophen (Tylenol 325mg Tab) 650 mg PO Q6 PRN PRN Reason: Fever >100.4 F Last Admin: 09/03/18 05:08 Dose: 650 mg Albuterol/Ipratropium (Duoneb 3 Mg/0.5 Mg (3 Ml) Ud) 3 ml INH RQ6 PRN PRN Reason: Shortness of Breath Last Admin: 09/05/18 07:30 Dose: 3 ml Aspirin (Ecotrin) 81 mg PO DAILY [facility] Last Admin: 09/05/18 09:52 Dose: 81 mg Calcium Acetate (Phoslo) 667 mg PO BIDCC [facility] Last Admin: 09/05/18 08:13 Dose: 667 mg Dextrose (Dextrose 50% Inj) 0 ml IV STAT PRN; Protocol PRN Reason: Hypoglycemia Protocol Dextrose (Glutose 15) 0 gm PO ONCE PRN; Protocol PRN Reason: Hypoglycemia Protocol Diltiazem HCl (Cardizem Cd) 180 mg PO DAILY [facility] Last Admin: 09/05/18 09:52 Dose: 180 mg Glucagon (Glucagen Diagnostic Kit) 0 mg IM STAT PRN; Protocol PRN Reason: Hypoglycemia Protocol Heparin Sodium (Porcine) (Heparin) 5,000 units SC Q8H [facility] [place] Last Admin: 09/05/18 05:43 Dose: 5,000 units Hydrochlorothiazide (Microzide) 12.5 mg PO DAILY [facility] [place] Last Admin: 09/03/18 09:27 Dose: 12.5 mg Dextrose (Dextrose 5% In Water 1000 Ml) 1,000 mls @ 0 mls/hr IV .Q0M PRN; Protocol PRN Reason: Hypoglycemia Protocol Moxifloxacin HCl (Avelox Iv 400mg/250ml Ns) 400 mg in 250 mls @ 167 mls/hr IVPB Q24H [facility]; Protocol Last Admin: 09/05/18 09:52 Dose: 167 mls/hr Ceftaroline Fosamil 300 mg/ (Sodium Chloride) 100 mls @ 100 mls/hr IVPB Q12H [facility]; Protocol Insulin Aspart (Novolog Mix 70/30 (70/30 Units/Ml)) 30 units SC ACD [facility] [place] Last Admin: 09/04/18 17:23 Dose: 30 units Insulin Aspart (Novolog Mix 70/30 (70/30 Units/Ml)) 40 units SC ACB [facility] [place] Last Admin: 09/05/18 08:12 Dose: 40 units Insulin Glargine (Lantus) 5 unit SC Q12 [facility] Last Admin: 09/05/18 09:53 Dose: 5 units Insulin Human Regular (Novolin R) 0 unit SC ACHS [facility]; Protocol Last Admin: 09/05/18 12:16 Dose: 10 units Losartan Potassium (Cozaar) 100 mg PO DAILY [facility] Last Admin: 09/04/18 10:40 Dose: 100 mg Methadone HCl (Methadose) 120 mg PO DAILY [facility] Stop: 09/11/18 10:01 Last Admin: 09/05/18 09:52 Dose: 120 mg Methylprednisolone (Solu-Medrol) 40 mg IVP Q8 [facility] Last Admin: 09/05/18 05:43 Dose: 40 mg Pantoprazole Sodium (Protonix Ec Tab) 40 mg PO DAILY [facility] Last Admin: 09/05/18 09:54 Dose: 40 mg Polyethylene Glycol (Miralax) 17 gm PO DAILY [facility] Stop: 09/11/18 10:01 Last Admin: 09/05/18 09:52 Dose: 17 gm Saccharomyces Boulardii (Florastor) 250 mg PO BID [facility] Last Admin: 09/05/18 09:52 Dose: 250 mg Simethicone (Mylicon Chew Tab) 80 mg PO QID [facility] [place] Stop: 09/10/18 14:01 Last Admin: 09/05/18 10:33 Dose: 80 mg - Labs Labs: 09/05/18 06:48 09/05/18 06:48 Assessment and Plan (1) COPD exacerbation Status: Acute (2) SANTY (obstructive sleep apnea) Status: Acute (3) Pneumonia Status: Acute
[2018-09-05] MEDS ORDERED: Pneumococcal 23-Valent Vaccine IM ONE (14:00)
[2018-09-05] MEDS ORDERED: Influenza Vaccine 60 MCG/0.5 ML SYR (3 yr & up) IM ONE (14:00)
[2018-09-05] MEDS ORDERED: Aritificial Tears (15ml) OU SCH (18:00)
[2018-09-05] MEDS: Vitamins A & D Oint UD Foilpak TOP SCH (19:00)
--- NOTE | 2018-09-05 19:56 | CP.PCM.PN ---
Subjective - Date & Time of Evaluation Date of Evaluation: 09/05/18 Time of Evaluation: 07:00 - Subjective Subjective: iv rx in progress tolerating teflaro dr Zhang on board Objective - Vital Signs/Intake and Output Vital Signs (last 24 hours): Temp Pulse Resp BP Pulse Ox 98.4 F 84 20 116/79 93 L 09/05/18 15:00 09/05/18 16:07 09/05/18 15:00 09/05/18 15:00 09/05/18 15:00 Intake and Output: 09/05/18 09/06/18 18:59 06:59 Intake Total 750 Balance 750 - Medications Medications: Current Medications Acetaminophen (Tylenol 325mg Tab) 650 mg PO Q6 PRN PRN Reason: Fever >100.4 F Last Admin: 09/03/18 05:08 Dose: 650 mg Albuterol/Ipratropium (Duoneb 3 Mg/0.5 Mg (3 Ml) Ud) 3 ml INH RQ6 PRN PRN Reason: Shortness of Breath Last Admin: 09/05/18 13:40 Dose: 3 ml Artificial Tears (Artificial Tears) 1 ml OU BID [facility] Last Admin: 09/05/18 19:00 Dose: 1 drop Aspirin (Ecotrin) 81 mg PO DAILY [facility] Last Admin: 09/05/18 09:52 Dose: 81 mg Calcium Acetate (Phoslo) 667 mg PO BIDCC [facility] Last Admin: 09/05/18 18:00 Dose: 667 mg Dextrose (Dextrose 50% Inj) 0 ml IV STAT PRN; Protocol PRN Reason: Hypoglycemia Protocol Dextrose (Glutose 15) 0 gm PO ONCE PRN; Protocol PRN Reason: Hypoglycemia Protocol Diltiazem HCl (Cardizem Cd) 180 mg PO DAILY [facility] Last Admin: 09/05/18 09:52 Dose: 180 mg Glucagon (Glucagen Diagnostic Kit) 0 mg IM STAT PRN; Protocol PRN Reason: Hypoglycemia Protocol Guaifenesin (Mucinex La) 600 mg PO Q12 [facility] Heparin Sodium (Porcine) (Heparin) 5,000 units SC Q8H [facility] Last Admin: 09/05/18 14:05 Dose: 5,000 units Hydrochlorothiazide (Microzide) 12.5 mg PO DAILY [facility] Last Admin: 09/03/18 09:27 Dose: 12.5 mg Dextrose (Dextrose 5% In Water 1000 Ml) 1,000 mls @ 0 mls/hr IV .Q0M PRN; Protocol PRN Reason: Hypoglycemia Protocol Moxifloxacin HCl (Avelox Iv 400mg/250ml Ns) 400 mg in 250 mls @ 167 mls/hr IVPB Q24H [facility]; Protocol Last Admin: 09/05/18 09:52 Dose: 167 mls/hr Ceftaroline Fosamil 300 mg/ (Sodium Chloride) 100 mls @ 100 mls/hr IVPB Q12H [facility]; Protocol Insulin Aspart (Novolog Mix 70/30 (70/30 Units/Ml)) 30 units SC ACD [facility] Last Admin: 09/05/18 17:00 Dose: 30 units Insulin Aspart (Novolog Mix 70/30 (70/30 Units/Ml)) 40 units SC ACB [facility] Last Admin: 09/05/18 08:12 Dose: 40 units Insulin Glargine (Lantus) 5 unit SC Q12 [facility] Last Admin: 09/05/18 09:53 Dose: 5 units Insulin Human Regular (Novolin R) 0 unit SC ACHS [facility]; Protocol Last Admin: 09/05/18 17:00 Dose: 6 units Losartan Potassium (Cozaar) 100 mg PO DAILY [facility] Last Admin: 09/04/18 10:40 Dose: 100 mg Methadone HCl (Methadose) 120 mg PO DAILY [facility] Stop: 09/11/18 10:01 Last Admin: 09/05/18 09:52 Dose: 120 mg Methylprednisolone (Solu-Medrol) 40 mg IVP Q8 [facility] Last Admin: 09/05/18 14:05 Dose: 40 mg Pantoprazole Sodium (Protonix Ec Tab) 40 mg PO DAILY [facility] Last Admin: 09/05/18 09:54 Dose: 40 mg Polyethylene Glycol (Miralax) 17 gm PO DAILY [facility] Stop: 09/11/18 10:01 Last Admin: 09/05/18 09:52 Dose: 17 gm Saccharomyces Boulardii (Florastor) 250 mg PO BID [facility] Last Admin: 09/05/18 19:00 Dose: 250 mg Simethicone (Mylicon Chew Tab) 80 mg PO QID [facility] Stop: 09/10/18 14:01 Last Admin: 09/05/18 19:00 Dose: 80 mg Vitamin A (Vitamin A & D Oint Ud Foilpak) 1 ea TOP BID [facility] Last Admin: 09/05/18 19:00 Dose: 1 ea - Labs Labs: 09/05/18 06:48 09/05/18 06:48 - Constitutional Appears: Non-toxic, Chronically Ill - Head Exam Head Exam: NORMOCEPHALIC - Eye Exam Eye Exam: absent: Scleral icterus - ENT Exam ENT Exam: Mucous Membranes Dry - Neck Exam Neck Exam: absent: Lymphadenopathy - Respiratory Exam Respiratory Exam: Decreased Breath Sounds - Cardiovascular Exam Cardiovascular Exam: REGULAR RHYTHM - GI/Abdominal Exam GI & Abdominal Exam: Distended, Soft - Rectal Exam Rectal Exam: Deferred - Exam Exam: NORMAL INSPECTION - Extremities Exam Extremities Exam: absent: Pedal Edema - Back Exam Back Exam: absent: CVA tenderness (L), CVA tenderness (R) - Neurological Exam Neurological Exam: Alert, Awake, CN II-XII Intact, Oriented x3 - Psychiatric Exam Psychiatric exam: Normal Mood Assessment and Plan (1) Multifocal pneumonia Status: Acute (2) TIM (acute kidney injury) Status: Acute (3) Asthma without status asthmaticus Status: Acute (4) CO2 retention Status: Acute (5) COPD exacerbation Status: Acute (6) Cellulitis Status: Acute - Assessment and Plan (Free Text) Assessment: cont iv teflaro
[2018-09-05] MEDS: guaiFENesin 600 mg ER Tab PO SCH (22:30)
[2018-09-06] MEDS: MethylPREDNISolone 40 mg Vial IVP SCH ×3 (07:08→22:15)
[2018-09-06 07:57] LABS: ALBUMIN 3.5 g/dL (3.5-5.0); CALCIUM 8.7 mg/dl (8.6-10.4)
[2018-09-06 08:00] LABS: BASO # 0.1 K/uL (0.0-0.2); BASO % 0.5 % (0.0-2.0); LYMPH # 1.2 K/uL (1.0-4.3); LYMPH % 9.9 % (20.0-40.0); MEAN CELL VOLUME 69.9 fL (81.0-99.0); MEAN CORPUSCULAR HGB CONC 30.1 g/dL (33.0-37.0); MEAN PLATELET VOLUME 10.2 fL (7.2-11.7); MONO # 0.5 K/uL (0.0-0.8); MONO % 4.5 % (0.0-10.0); NEUT % 85.1 % (50.0-75.0); NRBC % 0.1 % (0.0-2.0); PLATELET COUNT 211 K/uL (130-400); RBC 4.79 Mil/uL (3.80-5.20); RED CELL DISTRIBUTION WIDTH 17.8 % (11.5-14.5); WHITE BLOOD COUNT 11.7 K/uL (4.8-10.8)
[2018-09-06 08:03] LABS: HEMOGLOBIN 10.1 g/dL (11.0-16.0)
[2018-09-06] MEDS: (Novolog Mix 70/30) Insulin Aspart/Insulin Aspar 100 units/ml SC SCH (08:10)
[2018-09-06] MEDS: (Novolin R) Insulin Human Regular 100 units/ml vial SC SCH ×2 (08:10→12:10)
[2018-09-06] MEDS: Saccharomyces Boulardi 250 mg Cap PO SCH ×2 (09:34→19:13)
[2018-09-06] MEDS: Methadone 40 mg Tab PO SCH (09:34)
[2018-09-06] MEDS: Pantoprazole 40 mg EC Tab PO SCH (09:35)
[2018-09-06] MEDS: Simethicone 80 mg Chewtab PO SCH ×4 (09:35→22:15)
[2018-09-06] MEDS: diltiaZEM 180 mg/24 Hours CD Cap PO SCH (09:35)
[2018-09-06] MEDS: (Lantus) Insulin Glargine, Recombinant SC SCH (09:35)
[2018-09-06] MEDS: Vitamins A & D Oint UD Foilpak TOP SCH ×2 (09:35→19:13)
[2018-09-06] MEDS: Moxifloxacin IV 400mg/250ml NS 400 MG/250 ML BAG IVPB SCH (09:35)
[2018-09-06] MEDS: guaiFENesin 600 mg ER Tab PO SCH ×2 (09:35→22:15)
[2018-09-06] MEDS: POLYETHYLENE GLYCOL 3350 17 GM/Dose PACKET PO SCH (09:36)
[2018-09-06] MEDS ORDERED: Lubricant Eye Drops UD OU SCH ×3 (10:00→12:30)
--- NOTE | 2018-09-06 10:23 | CP.PCM.PN ---
Subjective - Date & Time of Evaluation Date of Evaluation: 09/06/18 Time of Evaluation: 09:15 - Subjective Subjective: Patient seen and examined Breathing better Less cough Afebrile Being treated for Mycoplasma pneumonia Objective - Vital Signs/Intake and Output Vital Signs (last 24 hours): Temp Pulse Resp BP Pulse Ox 98.8 F 71 18 167/79 H 96 09/06/18 07:00 09/06/18 07:47 09/06/18 07:00 09/06/18 09:34 09/06/18 07:00 - Medications Medications: Current Medications Acetaminophen (Tylenol 325mg Tab) 650 mg PO Q6 PRN PRN Reason: Fever >100.4 F Last Admin: 09/03/18 05:08 Dose: 650 mg Albuterol/Ipratropium (Duoneb 3 Mg/0.5 Mg (3 Ml) Ud) 3 ml INH RQ6 PRN PRN Reason: Shortness of Breath Last Admin: 09/05/18 13:40 Dose: 3 ml Artificial Tears (Refresh Opth Soln) 0 ml OU BID [facility] Aspirin (Ecotrin) 81 mg PO DAILY [facility] Last Admin: 09/06/18 09:35 Dose: 81 mg Calcium Acetate (Phoslo) 667 mg PO BIDCC [facility] Last Admin: 09/06/18 08:10 Dose: 667 mg Dextrose (Dextrose 50% Inj) 0 ml IV STAT PRN; Protocol PRN Reason: Hypoglycemia Protocol Dextrose (Glutose 15) 0 gm PO ONCE PRN; Protocol PRN Reason: Hypoglycemia Protocol Diltiazem HCl (Cardizem Cd) 180 mg PO DAILY [facility] Last Admin: 09/06/18 09:35 Dose: 180 mg Furosemide (Lasix) 20 mg PO BID [facility] Last Admin: 09/06/18 09:34 Dose: 20 mg Glucagon (Glucagen Diagnostic Kit) 0 mg IM STAT PRN; Protocol PRN Reason: Hypoglycemia Protocol Guaifenesin (Mucinex La) 600 mg PO Q12 [facility] Last Admin: 09/06/18 09:35 Dose: 600 mg Heparin Sodium (Porcine) (Heparin) 5,000 units SC Q8H [facility] Last Admin: 09/06/18 05:22 Dose: 5,000 units Hydrochlorothiazide (Microzide) 12.5 mg PO DAILY [facility] Last Admin: 09/03/18 09:27 Dose: 12.5 mg Moxifloxacin HCl (Avelox Iv 400mg/250ml Ns) 400 mg in 250 mls @ 167 mls/hr IVPB Q24H [facility]; Protocol Last Admin: 09/06/18 09:35 Dose: 167 mls/hr Ceftaroline Fosamil 300 mg/ (Sodium Chloride) 100 mls @ 100 mls/hr IVPB Q12H [facility]; Protocol Last Admin: 09/06/18 09:35 Dose: 100 mls/hr Insulin Aspart (Novolog Mix 70/30 (70/30 Units/Ml)) 30 units SC ACD [facility] Last Admin: 09/05/18 17:00 Dose: 30 units Insulin Aspart (Novolog Mix 70/30 (70/30 Units/Ml)) 40 units SC ACB [facility] Last Admin: 09/06/18 08:10 Dose: 40 units Insulin Glargine (Lantus) 5 unit SC Q12 [facility] Last Admin: 09/06/18 09:35 Dose: 5 units Insulin Human Regular (Novolin R) 0 unit SC ACHS [facility]; Protocol Last Admin: 09/06/18 08:10 Dose: 10 units Losartan Potassium (Cozaar) 100 mg PO DAILY [facility] Last Admin: 09/04/18 10:40 Dose: 100 mg Methadone HCl (Methadose) 120 mg PO DAILY [facility] Stop: 09/11/18 10:01 Last Admin: 09/06/18 09:34 Dose: 120 mg Methylprednisolone (Solu-Medrol) 40 mg IVP Q8 [facility] Last Admin: 09/06/18 07:08 Dose: 40 mg Pantoprazole Sodium (Protonix Ec Tab) 40 mg PO DAILY [facility] Last Admin: 09/06/18 09:35 Dose: 40 mg Polyethylene Glycol (Miralax) 17 gm PO DAILY [facility] Stop: 09/11/18 10:01 Last Admin: 09/06/18 09:36 Dose: Not Given Saccharomyces Boulardii (Florastor) 250 mg PO BID [facility] Last Admin: 09/06/18 09:34 Dose: 250 mg Simethicone (Mylicon Chew Tab) 80 mg PO QID [facility] Stop: 09/10/18 14:01 Last Admin: 09/06/18 09:35 Dose: 80 mg Vitamin A (Vitamin A & D Oint Ud Foilpak) 1 ea TOP BID [facility] Last Admin: 09/06/18 09:35 Dose: 1 ea - Labs Labs: 09/06/18 06:57 09/06/18 06:57 - Head Exam Head Exam: ATRAUMATIC, NORMOCEPHALIC - ENT Exam ENT Exam: Mucous Membranes Moist - Neck Exam Neck Exam: Normal Inspection - Respiratory Exam Respiratory Exam: Rales - Cardiovascular Exam Cardiovascular Exam: REGULAR RHYTHM - GI/Abdominal Exam GI & Abdominal Exam: Soft, Normal Bowel Sounds Assessment and Plan (1) Mycoplasma pneumonia Assessment & Plan: Continue Avelox Followup chest x-ray Continue nebulizer treatment Status: Acute (2) COPD exacerbation Status: Acute (3) SANTY (obstructive sleep apnea) Status: Acute
[2018-09-06 10:34] LABS: BANDS 2 % (0-2); LYMPHOCYTE 11 % (20-40); MONOCYTE 4 % (0-10); NEUTROPHIL 83 % (50-75); NUCLEATED RED BLOOD CELL 1 % (0-0); TOTAL CELLS COUNTED 100
[2018-09-06 10:35] LABS: PLATELET ESTIMATE NORMAL (NORMAL)
[2018-09-06 10:37] LABS: ANISOCYTOSIS SLIGHT; POIKILOCYTOSIS SLIGHT
[2018-09-06 10:38] LABS: BURR CELLS SLIGHT; LARGE PLATELETS PRESENT; OVALOCYTES SLIGHT; TEARDROP CELLS SLIGHT
[2018-09-06 10:39] LABS: HYPOCHROMIC SLIGHT; MICROCYTOSIS SLIGHT; POLYCHROMIC SLIGHT
[2018-09-06] MEDS ORDERED: Albuterol 0.083% Inhal Sol (2.5 mg/3 mL) UD INH PRN (11:18)
--- NOTE | 2018-09-06 11:22 | CP.PCM.PN ---
<Tatyana Cotton V - Last Filed: 09/06/18 11:19> Subjective - Date & Time of Evaluation Date of Evaluation: 09/06/18 Time of Evaluation: 11:00 - Subjective Subjective: Medical Attending Note: Patient seen and examined this morning. Patient denies fever, denies chills, reports shortness of breathe, and chest congestion, denies chest pain, denies abdominal pain, reports constipation, denies diarrhea, reports edema. Objective - Vital Signs/Intake and Output Vital Signs (last 24 hours): Temp Pulse Resp BP Pulse Ox 98.8 F 71 18 167/79 H 96 09/06/18 07:00 09/06/18 07:47 09/06/18 07:00 09/06/18 09:34 09/06/18 07:00 - Medications Medications: Current Medications Acetaminophen (Tylenol 325mg Tab) 650 mg PO Q6 PRN PRN Reason: Fever >100.4 F Last Admin: 09/03/18 05:08 Dose: 650 mg Albuterol Sulfate (Albuterol 0.083% Inhal Gay (2.5 Mg/3 Ml) Ud) 2.5 mg INH RQ2 PRN PRN Reason: Wheezing Albuterol/Ipratropium (Duoneb 3 Mg/0.5 Mg (3 Ml) Ud) 3 ml INH RQ6 [facility] Artificial Tears (Refresh Opth Soln) 0 ml OU BID [facility] Aspirin (Ecotrin) 81 mg PO DAILY [facility] Last Admin: 09/06/18 09:35 Dose: 81 mg Benzonatate (Tessalon Perles) 100 mg PO TID [facility] Calcium Acetate (Phoslo) 667 mg PO BIDCC [facility] Last Admin: 09/06/18 08:10 Dose: 667 mg Dextrose (Dextrose 50% Inj) 0 ml IV STAT PRN; Protocol PRN Reason: Hypoglycemia Protocol Dextrose (Glutose 15) 0 gm PO ONCE PRN; Protocol PRN Reason: Hypoglycemia Protocol Diltiazem HCl (Cardizem Cd) 180 mg PO DAILY [facility] Last Admin: 09/06/18 09:35 Dose: 180 mg Furosemide (Lasix) 20 mg PO BID [facility] Last Admin: 09/06/18 09:34 Dose: 20 mg Glucagon (Glucagen Diagnostic Kit) 0 mg IM STAT PRN; Protocol PRN Reason: Hypoglycemia Protocol Guaifenesin (Mucinex La) 600 mg PO Q12 [facility] Last Admin: 09/06/18 09:35 Dose: 600 mg Heparin Sodium (Porcine) (Heparin) 5,000 units SC Q8H [facility] Last Admin: 09/06/18 05:22 Dose: 5,000 units Hydrochlorothiazide (Microzide) 12.5 mg PO DAILY [facility] Last Admin: 09/03/18 09:27 Dose: 12.5 mg Moxifloxacin HCl (Avelox Iv 400mg/250ml Ns) 400 mg in 250 mls @ 167 mls/hr IVPB Q24H [facility]; Protocol Last Admin: 09/06/18 09:35 Dose: 167 mls/hr Ceftaroline Fosamil 300 mg/ (Sodium Chloride) 100 mls @ 100 mls/hr IVPB Q12H [facility]; Protocol Last Admin: 09/06/18 09:35 Dose: 100 mls/hr Insulin Aspart (Novolog Mix 70/30 (70/30 Units/Ml)) 30 units SC ACD [facility] Last Admin: 09/05/18 17:00 Dose: 30 units Insulin Aspart (Novolog Mix 70/30 (70/30 Units/Ml)) 40 units SC ACB [facility] Last Admin: 09/06/18 08:10 Dose: 40 units Insulin Glargine (Lantus) 5 unit SC Q12 [facility] Last Admin: 09/06/18 09:35 Dose: 5 units Insulin Human Regular (Novolin R) 0 unit SC ACHS [facility]; Protocol Last Admin: 09/06/18 08:10 Dose: 10 units Losartan Potassium (Cozaar) 100 mg PO DAILY [facility] Last Admin: 09/04/18 10:40 Dose: 100 mg Methadone HCl (Methadose) 120 mg PO DAILY [facility] Stop: 09/11/18 10:01 Last Admin: 09/06/18 09:34 Dose: 120 mg Methylprednisolone (Solu-Medrol) 40 mg IVP Q8 [facility] Last Admin: 09/06/18 07:08 Dose: 40 mg Pantoprazole Sodium (Protonix Ec Tab) 40 mg PO DAILY [facility] Last Admin: 09/06/18 09:35 Dose: 40 mg Saccharomyces Boulardii (Florastor) 250 mg PO BID [facility] Last Admin: 09/06/18 09:34 Dose: 250 mg Simethicone (Mylicon Chew Tab) 80 mg PO QID [facility] Stop: 09/10/18 14:01 Last Admin: 09/06/18 09:35 Dose: 80 mg Vitamin A (Vitamin A & D Oint Ud Foilpak) 1 ea TOP BID [facility] Last Admin: 09/06/18 09:35 Dose: 1 ea - Labs Labs: 09/06/18 06:57 09/06/18 06:57 - Constitutional Appears: Non-toxic, No Acute Distress - Head Exam Head Exam: NORMAL INSPECTION - Eye Exam Eye Exam: EOMI - ENT Exam ENT Exam: Mucous Membranes Moist - Respiratory Exam Respiratory Exam: Decreased Breath Sounds, Rales, NORMAL BREATHING PATTERN. absent: Rhonchi - Cardiovascular Exam Cardiovascular Exam: REGULAR RHYTHM, +S1, +S2 - GI/Abdominal Exam GI & Abdominal Exam: Soft, Normal Bowel Sounds. absent: Distended, Firm, Guarding, Rigid, Tenderness, Rebound - Extremities Exam Extremities Exam: Pedal Edema. absent: Tenderness - Neurological Exam Neurological Exam: Alert, Awake, Oriented x3 - Psychiatric Exam Psychiatric exam: Normal Affect, Normal Mood - Skin Skin Exam: Dry, Intact, Normal Color, Warm <Shira Diego - Last Filed: 09/06/18 19:23> Objective - Vital Signs/Intake and Output Vital Signs (last 24 hours): Temp Pulse Resp BP Pulse Ox 987 F H 81 20 155/91 H 98 09/06/18 15:45 09/06/18 15:45 09/06/18 15:45 09/06/18 15:45 09/06/18 15:45 - Medications Medications: Current Medications Acetaminophen (Tylenol 325mg Tab) 650 mg PO Q6 PRN PRN Reason: Fever >100.4 F Last Admin: 09/03/18 05:08 Dose: 650 mg Albuterol Sulfate (Albuterol 0.083% Inhal Gay (2.5 Mg/3 Ml) Ud) 2.5 mg INH RQ2 PRN PRN Reason: Wheezing Albuterol/Ipratropium (Duoneb 3 Mg/0.5 Mg (3 Ml) Ud) 3 ml INH RQ6 [facility] Artificial Tears (Artificial Tears Refresh Celluvisc) 0 ml OU BID [facility] Last Admin: 09/06/18 13:40 Dose: 2 drop Aspirin (Ecotrin) 81 mg PO DAILY [facility] Last Admin: 09/06/18 09:35 Dose: 81 mg Benzonatate (Tessalon Perles) 100 mg PO TID [facility] Last Admin: 09/06/18 13:41 Dose: 100 mg Bisacodyl (Dulcolax) 10 mg [place] DAILY [facility] Stop: 09/12/18 13:30 Last Admin: 09/06/18 13:41 Dose: 10 mg Calcium Acetate (Phoslo) 667 mg PO BIDCC [facility] Last Admin: 09/06/18 08:10 Dose: 667 mg Dextrose (Dextrose 50% Inj) 0 ml IV STAT PRN; Protocol PRN Reason: Hypoglycemia Protocol Dextrose (Glutose 15) 0 gm PO ONCE PRN; Protocol PRN Reason: Hypoglycemia Protocol Diltiazem HCl (Cardizem Cd) 180 mg PO DAILY [facility] Last Admin: 09/06/18 09:35 Dose: 180 mg Furosemide (Lasix) 20 mg PO BID [facility] Last Admin: 09/06/18 09:34 Dose: 20 mg Glucagon (Glucagen Diagnostic Kit) 0 mg IM STAT PRN; Protocol PRN Reason: Hypoglycemia Protocol Guaifenesin (Mucinex La) 600 mg PO Q12 [facility] Last Admin: 09/06/18 09:35 Dose: 600 mg Heparin Sodium (Porcine) (Heparin) 5,000 units SC Q8H [facility] Last Admin: 09/06/18 13:41 Dose: 5,000 units Hydrochlorothiazide (Microzide) 12.5 mg PO DAILY [facility] Last Admin: 09/03/18 09:27 Dose: 12.5 mg Moxifloxacin HCl (Avelox Iv 400mg/250ml Ns) 400 mg in 250 mls @ 167 mls/hr IVPB Q24H [facility]; Protocol Last Admin: 09/06/18 09:35 Dose: 167 mls/hr Ceftaroline Fosamil 300 mg/ (Sodium Chloride) 100 mls @ 100 mls/hr IVPB Q12H [facility]; Protocol Last Admin: 09/06/18 09:35 Dose: 100 mls/hr Insulin Aspart (Novolog) 14 unit SC AC [facility] Insulin Aspart (Novolog) 0 unit SC ACHS [facility] Insulin Glargine (Lantus) 34 unit SC HS [facility] Losartan Potassium (Cozaar) 100 mg PO DAILY [facility] Last Admin: 09/04/18 10:40 Dose: 100 mg Methadone HCl (Methadose) 120 mg PO DAILY [facility] Stop: 09/11/18 10:01 Last Admin: 09/06/18 09:34 Dose: 120 mg Methylprednisolone (Solu-Medrol) 40 mg IVP Q8 [facility] Last Admin: 09/06/18 13:41 Dose: 40 mg Pantoprazole Sodium (Protonix Ec Tab) 40 mg PO DAILY [facility] Last Admin: 09/06/18 09:35 Dose: 40 mg Saccharomyces Boulardii (Florastor) 250 mg PO BID [facility] Last Admin: 09/06/18 09:34 Dose: 250 mg Simethicone (Mylicon Chew Tab) 80 mg PO QID [facility] Stop: 09/10/18 14:01 Last Admin: 09/06/18 13:41 Dose: 80 mg Vitamin A (Vitamin A & D Oint Ud Foilpak) 1 ea TOP BID [facility] Last Admin: 09/06/18 09:35 Dose: 1 ea - Labs Labs: 09/06/18 06:57 09/06/18 06:57 Assessment and Plan - Assessment and Plan (Free Text) Assessment: 58 y/o female with PMHx of CVA 2011, COPD, asthma, DM, HTN, HLD, and anemia presented to the ED on 09/02 with bilateral leg pain and shortness of breath with walking minimally. PE and DVT had been r/o and now on BiPAP. 1) sepsis - fever and leukocytosis 2/2 mycoplasma PNA -Tmax 101.5, then 100.7 on 09/03, 6am shortly after first dose of zosyn. PICC inserted 09/03 -zosyn 3.375 q8h started 09/03 discontinued 09/04 and ceftaroline 400 mg started for MRSA coverage per Dr. Holliday (ID) -follow ID recs Dr. Holliday - who added moxi 400 mg q24 -florastor 250 mg PO BID -elevated procaclitonin 21.[address] Zhang (pulm), ordered new one for 09/06 to check progress of infection -ordered repeat procalcitonin for 09/08 -legionella AB negative 09/03 -Bcx no growth after 24h 2) COPD/asthma -duonebs q6h PRN -BiPAB at night -solumedrol 40 mg IV q8h -s/p racemic epi 2.25 x 1 09/05 -follow Dr. Zhang recs pulm 3) TIM 2/2 FLORINDA most likely per renal -hyperphos and hypocalcemia: Phos 5.5 -> 4.6 (high) and Ca 7.8 09/03 then d ecreased to 7.5 (low) -PTH order pending - hypoparathyroidism possible/renal failure -phoslo 667 mg x 1 as needed -trend electrolytes 4) DM -novolog 70/30, 40 ACB and 30 ACD -lantus q12h 5units -patient on HARJINDER - losartan 100 mg daily renoprotection 5) HTN -dilt 180 mg PO (home med) -losartan 100 mg daily -HCTZ 12.5 mg daily withheld given TIM 7) polysubstance use -counseling -UDS positive for methadone, on methadone 120 mg maintenance (dosage confirmed by RN who called the clinic) 8) constipation -simethicone 40 mg QID PRN -miralax daily -dulcolax suppository reordered 9) URI vs. allergic rhinitis -artificial tears -vitamin A and D ointment for lips -mucinex 600mg PO BID -viki harris DVT ppx: heparin 5000mg sq GI ppx: protonix 40 mg PO case discussed with Dr. Yury Diego, DO PGY-1
[2018-09-06] MEDS: CARBOXYMETHYLCELLULOSE 0.5% OU SCH ×2 (13:40→19:26)
[2018-09-06 15:47] VITALS: RESP 20
[2018-09-06] MEDS: (Novolog) Insulin Aspart, Recombinant 100 u/ml 10 ml vial SC SCH ×3 (17:30→22:40)
[2018-09-06] MEDS: Albuterol-Ipratrop 3 mg / 0.5 (3 ml) UD INH SCH (19:36)
[2018-09-06] MEDS ORDERED: (Lantus) Insulin Glargine, Recombinant SC SCH (22:00)
--- NOTE | 2018-09-06 23:45 | CP.PCM.PN ---
Subjective - Date & Time of Evaluation Date of Evaluation: 09/06/18 Time of Evaluation: 15:00 - Subjective Subjective: Patient still with sob but improved; urinating more; Objective - Vital Signs/Intake and Output Vital Signs (last 24 hours): Temp Pulse Resp BP Pulse Ox 987 F H 81 20 153/87 H 98 09/06/18 15:45 09/06/18 15:45 09/06/18 15:45 09/06/18 19:17 09/06/18 15:45 - Medications Medications: Current Medications Acetaminophen (Tylenol 325mg Tab) 650 mg PO Q6 PRN PRN Reason: Fever >100.4 F Last Admin: 09/03/18 05:08 Dose: 650 mg Albuterol Sulfate (Albuterol 0.083% Inhal Gay (2.5 Mg/3 Ml) Ud) 2.5 mg INH RQ2 PRN PRN Reason: Wheezing Albuterol/Ipratropium (Duoneb 3 Mg/0.5 Mg (3 Ml) Ud) 3 ml INH RQ6 [facility] Last Admin: 09/06/18 19:36 Dose: 3 ml Artificial Tears (Artificial Tears Refresh Celluvisc) 0 ml OU BID [facility] Last Admin: 09/06/18 19:26 Dose: 2 drop Aspirin (Ecotrin) 81 mg PO DAILY [facility] Last Admin: 09/06/18 09:35 Dose: 81 mg Benzonatate (Tessalon Perles) 100 mg PO TID [facility] Last Admin: 09/06/18 19:14 Dose: 100 mg Bisacodyl (Dulcolax) 10 mg [place] DAILY [facility] Stop: 09/12/18 13:30 Last Admin: 09/06/18 13:41 Dose: 10 mg [facility] Last Admin: 09/06/18 17:20 Dose: 667 mg Dextrose (Dextrose 50% Inj) 0 ml IV STAT PRN; Protocol PRN Reason: Hypoglycemia Protocol Dextrose (Glutose 15) 0 gm PO ONCE PRN; Protocol PRN Reason: Hypoglycemia Protocol Diltiazem HCl (Cardizem Cd) 180 mg PO DAILY [facility] Last Admin: 09/06/18 09:35 Dose: 180 mg Furosemide (Lasix) 20 mg PO BID [facility] Last Admin: 09/06/18 19:17 Dose: 20 mg Glucagon (Glucagen Diagnostic Kit) 0 mg IM STAT PRN; Protocol PRN Reason: Hypoglycemia Protocol Guaifenesin (Mucinex La) 600 mg PO Q12 [facility] Last Admin: 09/06/18 22:15 Dose: 600 mg Heparin Sodium (Porcine) (Heparin) 5,000 units SC Q8H [facility] Last Admin: 09/06/18 22:15 Dose: 5,000 units Hydrochlorothiazide (Microzide) 12.5 mg PO DAILY [facility] Last Admin: 09/03/18 09:27 Dose: 12.5 mg Moxifloxacin HCl (Avelox Iv 400mg/250ml Ns) 400 mg in 250 mls @ 167 mls/hr IVPB Q24H [facility]; Protocol Last Admin: 09/06/18 09:35 Dose: 167 mls/hr Ceftaroline Fosamil 300 mg/ (Sodium Chloride) 100 mls @ 100 mls/hr IVPB Q12H [facility]; Protocol Last Admin: 09/06/18 22:15 Dose: 100 mls/hr Insulin Aspart (Novolog) 14 unit SC AC [facility] Last Admin: 09/06/18 17:30 Dose: 14 units Insulin Aspart (Novolog) 0 unit SC ACHS [facility] Last Admin: 09/06/18 22:40 Dose: 5 units Insulin Glargine (Lantus) 34 unit SC HS [facility] Last Admin: 09/06/18 22:39 Dose: 34 units Losartan Potassium (Cozaar) 100 mg PO DAILY [facility] Last Admin: 09/04/18 10:40 Dose: 100 mg Methadone HCl (Methadose) 120 mg PO DAILY [facility] Stop: 09/11/18 10:01 Last Admin: 09/06/18 09:34 Dose: 120 mg Methylprednisolone (Solu-Medrol) 40 mg IVP Q8 [facility] Last Admin: 09/06/18 22:15 Dose: 40 mg Pantoprazole Sodium (Protonix Ec Tab) 40 mg PO DAILY [facility] Last Admin: 09/06/18 09:35 Dose: 40 mg Saccharomyces Boulardii (Florastor) 250 mg PO BID [facility] Last Admin: 09/06/18 19:13 Dose: 250 mg Simethicone (Mylicon Chew Tab) 80 mg PO QID [facility] Stop: 09/10/18 14:01 Last Admin: 09/06/18 22:15 Dose: 80 mg Vitamin A (Vitamin A & D Oint Ud Foilpak) 1 ea TOP BID [facility] Last Admin: 09/06/18 19:13 Dose: 1 ea - Labs Labs: 09/06/18 06:57 09/06/18 06:57 - Constitutional Appears: Non-toxic, No Acute Distress - Eye Exam Eye Exam: Normal appearance - Respiratory Exam Respiratory Exam: Clear to Ausculation Bilateral. absent: Respiratory Distress - Cardiovascular Exam Cardiovascular Exam: JVD, RRR, +S1, +S2 - GI/Abdominal Exam GI & Abdominal Exam: Soft. absent: Distended, Tenderness - Extremities Exam Additional comments: moderate b/l leg edema extending to upper thighs; - Neurological Exam Neurological Exam: Alert, Awake - Psychiatric Exam Psychiatric exam: Normal Mood. absent: Agitated - Skin Skin Exam: Warm. absent: Cyanosis Assessment and Plan (1) Respiratory failure Assessment & Plan: Acute on chronic hypercapneic/hypoxemic resp failure secondary to COPD exacerbation/PNA; may have component of CHF exacerbation as well (diastolic dysfunction) that was precipitated by TIM; still with volume overload on exam (edematous, elevated JVD); -continue PO lasix 20 mg bid; Status: Acute (2) TIM (acute kidney injury) Assessment & Plan: ATN secondary to contrast nephropathy, resolving; advised again that she should have adequate prophylaxis if getting any IV contrast study; Status: Acute (3) HTN (hypertension) Assessment & Plan: BP elevated, losartan had been on hold, will restart at lower dose (50 mg) since we are diuresing as well; Status: Chronic (4) CHF (congestive heart failure) Status: Acute
[2018-09-07] MEDS: Albuterol-Ipratrop 3 mg / 0.5 (3 ml) UD INH SCH ×4 (02:00→20:12)
--- NOTE | 2018-09-07 02:52 | CON ---
DATE: 09/06/2018HISTORY OF PRESENT ILLNESS: This is a 58-year-old female with known history of type 2 insulin-requiring diabetes, presenting here with pleuritic chest pain and progressive shortness of breath, and has been evaluated for the multifocal pneumonia with supervening acute exacerbation of COPD, currently on IV steroid therapy with marked hyperglycemic accelerations, and is now being referred for diabetic evaluation and management. PAST MEDICAL HISTORY: As mentioned above. History of type 2 insulin-requiring diabetes with the combination of a premixed insulin regimen at home with Novolog 70/30 given as 40 units before breakfast and 30 units before dinner, with Lantus given as 5 units at bedtime and Levemir as 24 units at bedtime. Again, the patient is not sure whether she was advised to give both insulins as noted. History of hypertension and dyslipidemia. History of a previous cerebrovascular event, a prior transient ischemic attack with no residual weakness. There is also underlying morbid obesity as noted. History of hypertension and dyslipidemia as mentioned. History of chronic asthmatic bronchitis with previous admissions for exacerbation of the same. History of polysubstance abuse with prior heroin use, currently on methadone maintenance therapy. FAMILY HISTORY: Positive for hypertension and diabetes. SOCIAL HISTORY: The patient admits to nicotine independence and is an active smoker with prior heroin abuse and currently on methadone maintenance therapy. She has a supportive family otherwise. REVIEW OF SYSTEMS: Admits to generalized body weakness with easy fatigability and tiredness and suboptimal energy level. Also admits to visual blurring with bifrontal headaches and progressive bouts of dizziness and lightheadedness, worse on the day of admission. Also admits to pleuritic chest pain with episodic precordial chest pain with progressive shortness of breath, initially on exertion and then at rest as noted. Also some productive cough, worse on the day of the admission. Her oral intake has been variable with nausea and dyspepsia and progressively worsening marked polyuria, nocturia, and polydipsia. PHYSICAL EXAMINATION: GENERAL: This is an obese female, in no apparent distress. VITAL SIGNS: Blood pressure of 150/100, pulse of 100 beats per minute and regular, temperature 98, respirations 20, height is 5 feet 1 inches, and weight is 247 pounds. HEENT: Head is normocephalic. Eyes anicteric with pink conjunctivae. Funduscopy not possible at this time. Ears, nose, and throat otherwise normal. NECK: Supple. Thyroid gland is normal sized. No carotid bruits or cervical adenopathy. CARDIOPULMONARY: Adynamic precordium. S1 and S2 are rapid and regular. LUNGS: Scattered rhonchi with bibasilar rales. ABDOMEN: Obese, soft with positive bowel sounds. EXTREMITIES: No peripheral edema. Pulses are +2 bilaterally. LABORATORY DATA: The chemistry showed a BUN of 42, sodium 139, potassium 4.6, chloride 96, CO2 of 34, glucose 450, and creatinine 1.3. Her glucose levels today and overnight have ranged from 328-493 and over 500 mg per dL. Her hemoglobin A1c is 9.3% with a calcium level of 7.8 and a PTH of 173. Her creatinine is 2.1. ASSESSMENT: This is a 58-year-old female with uncontrolled and decompensated type 2 insulin-requiring diabetes with clearly a suboptimal metabolic profile even prior to this admission and presenting here with marked hyperglycemic accelerations, also with intercurrent IV steroid therapy which has been contributed to the increase insulin resistance and further impaired glucose tolerance thereafter. Moreover, she also has underlying super morbid obesity which will contribute to the further increased insulin resistance and need for increased insulin requirements thereof. PLAN OF MANAGEMENT: We will discontinue her premixed insulin regimen for now, which could be resumed as an outpatient, but because of the marked hyperglycemic accelerations, we will switch her over to a more physiologic basal and bolus insulin drug combinations as little bit ordered today. We will start her with NovoLog given as 14 units subcu t.i.d. before meals to start today. We will also modify the coverage scale to obviate hypoglycemia, using NovoLog insulin as ordered, and detailed orders have been given. We will add basal insulin with Lantus to be given at 34 units subcu at bedtime daily to start tonight as ordered. We will obtain serial chemistries and supplement accordingly as needed. We will also titrate her dose regimen accordingly on the day-today basis to optimize metabolic control. We will follow her and advise accordingly. Tiny Camarena MD
[2018-09-07] MEDS: MethylPREDNISolone 40 mg Vial IVP SCH ×2 (05:33→21:20)
[2018-09-07] MEDS: (Novolog) Insulin Aspart, Recombinant 100 u/ml 10 ml vial SC SCH ×7 (07:25→21:20)
[2018-09-07 07:51] LABS: BASO % 0.2 % (0.0-2.0); EOS % 0.1 % (0.0-4.0); HEMOGLOBIN 10.8 g/dL (11.0-16.0); LYMPH # 2.4 K/uL (1.0-4.3); LYMPH % 17.1 % (20.0-40.0); MEAN CELL VOLUME 69.8 fL (81.0-99.0); MEAN CORPUSCULAR HEMOGLOBIN 20.9 pg (27.0-31.0); MEAN CORPUSCULAR HGB CONC 29.9 g/dL (33.0-37.0); MEAN PLATELET VOLUME 10.3 fL (7.2-11.7); MONO # 0.8 K/uL (0.0-0.8); MONO % 5.7 % (0.0-10.0); NEUT # 10.9 K/uL (1.8-7.0); NEUT % 76.9 % (50.0-75.0); NRBC % 0.1 % (0.0-2.0); RBC 5.2 Mil/uL (3.80-5.20); RED CELL DISTRIBUTION WIDTH 17.2 % (11.5-14.5); WHITE BLOOD COUNT 14.2 K/uL (4.8-10.8)
[2018-09-07 08:14] LABS: ALBUMIN 3.8 g/dL (3.5-5.0); ALT/SGPT 34 U/L (9-52); AST/SGOT 17 U/L (14-36); BLOOD UREA NITROGEN 34 mg/dL (7-17); CALCIUM 9.4 mg/dl (8.6-10.4); GFR NON-AFRICAN AMERICAN 51
[2018-09-07] MEDS: Vitamins A & D Oint UD Foilpak TOP SCH ×2 (10:00→17:30)
[2018-09-07] MEDS: CARBOXYMETHYLCELLULOSE 0.5% OU SCH ×2 (10:00→17:30)
[2018-09-07] MEDS: Moxifloxacin IV 400mg/250ml NS 400 MG/250 ML BAG IVPB SCH (10:00)
[2018-09-07] MEDS: Pantoprazole 40 mg EC Tab PO SCH (10:00)
[2018-09-07] MEDS: Saccharomyces Boulardi 250 mg Cap PO SCH ×2 (10:01→17:29)
[2018-09-07] MEDS: Methadone 40 mg Tab PO SCH (10:01)
[2018-09-07] MEDS: guaiFENesin 600 mg ER Tab PO SCH ×2 (10:01→21:13)
[2018-09-07] MEDS: diltiaZEM 180 mg/24 Hours CD Cap PO SCH (10:01)
[2018-09-07] MEDS: Simethicone 80 mg Chewtab PO SCH ×4 (10:01→21:13)
[2018-09-07] MEDS ORDERED: Metoprolol 1 mg/ml Inj IVP ONE (12:11)
--- NOTE | 2018-09-07 12:27 | CP.PCM.PN ---
Subjective - Date & Time of Evaluation Date of Evaluation: 09/07/18 Time of Evaluation: 12:27 - Subjective Subjective: Pulmonary Follow up, Covering Dr Zhang The patient was Seen/interviewed and examined by me at the bedside, Medical records reviewed and Management issues were discussed and formulated with the house staff. Events reviewed Doing well now, no new complains Clinically improving Patient awake, comfortable, NAD PMHx: DM Type II, HTN, CAD, High Cholesterol, COPD, Bronchial Asthma Surgical Hx: Neck surgery for cyst removal, Cyst removal in upper arm bilateral, Skin graft in lower extremities bilaterally, X 1, Blood transfusion. Meds: Allergies: NKDA Fam Hx: Mother - denies. Father - head aneurysm. Brother - head aneurysm. Stroke in father's side of family. Social: Lives at home with son and son's father. Not currently working, states she is "disabled". Former smoker, quit 1 year ago, previous use of 1 ppd since age 24. 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 Denies alcohol us Objective - Vital Signs/Intake and Output Vital Signs (last 24 hours): Temp Pulse Resp BP Pulse Ox 98.9 F 91 H 20 181/108 H 94 L 09/07/18 07:00 09/07/18 12:10 09/07/18 07:00 09/07/18 12:10 09/07/18 07:00 Intake and Output: 09/07/18 09/07/18 06:59 18:59 Intake Total 240 Balance 240 - Medications Medications: Current Medications Acetaminophen (Tylenol 325mg Tab) 650 mg PO Q6 PRN PRN Reason: Fever >100.4 F Last Admin: 09/03/18 05:08 Dose: 650 mg Albuterol Sulfate (Albuterol 0.083% Inhal Gay (2.5 Mg/3 Ml) Ud) 2.5 mg INH RQ2 PRN PRN Reason: Wheezing Albuterol/Ipratropium (Duoneb 3 Mg/0.5 Mg (3 Ml) Ud) 3 ml INH RQ6 [facility] Last Admin: 09/07/18 08:44 Dose: 3 ml Artificial Tears (Artificial Tears Refresh Celluvisc) 0 ml OU BID [facility] Last Admin: 09/07/18 10:00 Dose: 2 drop Aspirin (Ecotrin) 81 mg PO DAILY [facility] Last Admin: 09/07/18 10:00 Dose: 81 mg Benzonatate (Tessalon Perles) 100 mg PO TID [facility] Last Admin: 09/07/18 10:01 Dose: 100 mg Bisacodyl (Dulcolax) 10 mg CO DAILY [facility] Stop: 09/12/18 13:30 Last Admin: 09/07/18 10:01 Dose: 10 mg Dextrose (Dextrose 50% Inj) 0 ml IV STAT PRN; Protocol PRN Reason: Hypoglycemia Protocol Dextrose (Glutose 15) 0 gm PO ONCE PRN; Protocol PRN Reason: Hypoglycemia Protocol Diltiazem HCl (Cardizem Cd) 180 mg PO DAILY [facility] Last Admin: 09/07/18 10:01 Dose: 180 mg Furosemide (Lasix) 20 mg PO BID [facility] Last Admin: 09/06/18 19:17 Dose: 20 mg Furosemide (Lasix) 20 mg IVP BID [facility] Stop: 09/07/18 18:01 Last Admin: 09/07/18 10:01 Dose: 20 mg Glucagon (Glucagen Diagnostic Kit) 0 mg IM STAT PRN; Protocol PRN Reason: Hypoglycemia Protocol Guaifenesin (Mucinex La) 600 mg PO Q12 [facility] Last Admin: 09/07/18 10:01 Dose: 600 mg Heparin Sodium (Porcine) (Heparin) 5,000 units SC Q8H [facility] Last Admin: 09/07/18 05:33 Dose: 5,000 units Hydrochlorothiazide (Microzide) 12.5 mg PO DAILY [facility] Last Admin: 09/03/18 09:27 Dose: 12.5 mg Moxifloxacin HCl (Avelox Iv 400mg/250ml Ns) 400 mg in 250 mls @ 167 mls/hr IVPB Q24H [facility]; Protocol Last Admin: 09/07/18 10:00 Dose: 167 mls/hr Ceftaroline Fosamil 300 mg/ (Sodium Chloride) 100 mls @ 100 mls/hr IVPB Q12H [facility]; Protocol Last Admin: 09/07/18 10:00 Dose: 100 mls/hr Insulin Aspart (Novolog) 14 unit SC AC [facility] Last Admin: 09/07/18 12:02 Dose: 14 units Insulin Aspart (Novolog) 0 unit SC ACHS [facility] Last Admin: 09/07/18 12:09 Dose: 5 units Insulin Glargine (Lantus) 34 unit SC HS [facility] Last Admin: 09/06/18 22:39 Dose: 34 units Losartan Potassium (Cozaar) 50 mg PO DAILY [facility] Last Admin: 09/07/18 10:04 Dose: 50 mg Methadone HCl (Methadose) 120 mg PO DAILY [facility] Stop: 09/11/18 10:01 Last Admin: 09/07/18 10:01 Dose: 120 mg Methylprednisolone (Solu-Medrol) 40 mg IVP Q12 [facility] Pantoprazole Sodium (Protonix Ec Tab) 40 mg PO DAILY [facility] Last Admin: 09/07/18 10:00 Dose: 40 mg Saccharomyces Boulardii (Florastor) 250 mg PO BID [facility] Last Admin: 09/07/18 10:01 Dose: 250 mg Simethicone (Mylicon Chew Tab) 80 mg PO QID [facility] Stop: 09/10/18 14:01 Last Admin: 09/07/18 10:01 Dose: 80 mg Vitamin A (Vitamin A & D Oint Ud Foilpak) 1 ea TOP BID [facility] Last Admin: 09/07/18 10:00 Dose: 1 ea - Labs Labs: 09/07/18 07:35 09/07/18 07:35 - Constitutional Appears: Well, Non-toxic - Head Exam Head Exam: ATRAUMATIC, NORMAL INSPECTION, NORMOCEPHALIC - Eye Exam Eye Exam: EOMI. absent: Conjunctival injection - ENT Exam ENT Exam: Mucous Membranes Dry - Neck Exam Neck Exam: Full ROM, Normal Inspection. absent: Lymphadenopathy, Meningismus, Tenderness, Thyromegaly - Respiratory Exam Respiratory Exam: Decreased Breath Sounds. absent: Accessory Muscle Use, Chest Wall Tenderness, Prolonged Expiratory Phase, Rales, Rhonchi, Wheezes, Respiratory Distress - GI/Abdominal Exam GI & Abdominal Exam: Distended, Soft, Normal Bowel Sounds. absent: Firm, Guarding, Rigid - Extremities Exam Extremities Exam: Full ROM. absent: Calf Tenderness - Back Exam Back Exam: absent: CVA tenderness (L), CVA tenderness (R) - Neurological Exam Neurological Exam: Alert, Awake, CN II-XII Intact, Normal Gait, Oriented x3. absent: Altered, Motor Sensory Deficit Assessment and Plan (1) Multifocal pneumonia Status: Acute (2) Mycoplasma pneumonia Status: Acute (3) COPD exacerbation Status: Acute (4) SANTY (obstructive sleep apnea) Status: Acute - Assessment and Plan (Free Text) Assessment: Continue Avelox x 7 days Continue nebulizer treatment. Followup chest x-ray Supplemental Oxygen keep SaO2 >92%, Weight loss through diet and exercise regimen. Continue CPAP with heated humidification full face mask Full PFTs and sleep study outpatient
--- NOTE | 2018-09-07 16:54 | CP.PCM.PN ---
Subjective - Date & Time of Evaluation Date of Evaluation: 09/07/18 Time of Evaluation: 08:00 - Subjective Subjective: less sob no fever renal function improved Objective - Vital Signs/Intake and Output Vital Signs (last 24 hours): Temp Pulse Resp BP Pulse Ox 98.2 F 81 20 154/95 H 96 09/07/18 15:15 09/07/18 15:15 09/07/18 15:15 09/07/18 15:15 09/07/18 15:15 Intake and Output: 09/07/18 09/07/18 06:59 18:59 Intake Total 240 Balance 240 - Medications Medications: Current Medications Acetaminophen (Tylenol 325mg Tab) 650 mg PO Q6 PRN PRN Reason: Fever >100.4 F Last Admin: 09/03/18 05:08 Dose: 650 mg Albuterol Sulfate (Albuterol 0.083% Inhal Gay (2.5 Mg/3 Ml) Ud) 2.5 mg INH RQ2 PRN PRN Reason: Wheezing Albuterol/Ipratropium (Duoneb 3 Mg/0.5 Mg (3 Ml) Ud) 3 ml INH RQ6 [facility] Last Admin: 09/07/18 13:00 Dose: 3 ml Artificial Tears (Artificial Tears Refresh Celluvisc) 0 ml OU BID [facility] Last Admin: 09/07/18 10:00 Dose: 2 drop Aspirin (Ecotrin) 81 mg PO DAILY [facility] Last Admin: 09/07/18 10:00 Dose: 81 mg Benzonatate (Tessalon Perles) 100 mg PO TID [facility] Last Admin: 09/07/18 13:32 Dose: 100 mg Bisacodyl (Dulcolax) 10 mg [place] DAILY [facility] Stop: 09/12/18 13:30 Last Admin: 09/07/18 15:20 Dose: Not Given Dextrose (Dextrose 50% Inj) 0 ml IV STAT PRN; Protocol PRN Reason: Hypoglycemia Protocol Dextrose (Glutose 15) 0 gm PO ONCE PRN; Protocol PRN Reason: Hypoglycemia Protocol Diltiazem HCl (Cardizem Cd) 180 mg PO DAILY [facility] Last Admin: 09/07/18 10:01 Dose: 180 mg Furosemide (Lasix) 20 mg PO BID [facility] Last Admin: 09/06/18 19:17 Dose: 20 mg Furosemide (Lasix) 20 mg IVP BID [facility] Stop: 09/07/18 18:01 Last Admin: 09/07/18 10:01 Dose: 20 mg Glucagon (Glucagen Diagnostic Kit) 0 mg IM STAT PRN; Protocol PRN Reason: Hypoglycemia Protocol Guaifenesin (Mucinex La) 600 mg PO Q12 [facility] Last Admin: 09/07/18 10:01 Dose: 600 mg Heparin Sodium (Porcine) (Heparin) 5,000 units SC Q8H [facility] Last Admin: 09/07/18 13:32 Dose: 5,000 units Hydrochlorothiazide (Microzide) 12.5 mg PO DAILY [facility] Last Admin: 09/03/18 09:27 Dose: 12.5 mg Moxifloxacin HCl (Avelox Iv 400mg/250ml Ns) 400 mg in 250 mls @ 167 mls/hr IVPB Q24H [facility]; Protocol Last Admin: 09/07/18 10:00 Dose: 167 mls/hr Ceftaroline Fosamil 400 mg/ (Sodium Chloride) 100 mls @ 100 mls/hr IVPB Q12H [facility]; Protocol Insulin Aspart (Novolog) 0 unit SC ACHS [facility] Last Admin: 09/07/18 12:09 Dose: 5 units Insulin Aspart (Novolog) 18 unit SC AC [facility] Insulin Glargine (Lantus) 44 unit SC HS [facility] Losartan Potassium (Cozaar) 50 mg PO DAILY [facility] Last Admin: 09/07/18 10:04 Dose: 50 mg Methadone HCl (Methadose) 120 mg PO DAILY [facility] Stop: 09/11/18 10:01 Last Admin: 09/07/18 10:01 Dose: 120 mg Methylprednisolone (Solu-Medrol) 40 mg IVP Q12 [facility] Pantoprazole Sodium (Protonix Ec Tab) 40 mg PO DAILY [facility] Last Admin: 09/07/18 10:00 Dose: 40 mg Saccharomyces Boulardii (Florastor) 250 mg PO BID [facility] Last Admin: 09/07/18 10:01 Dose: 250 mg Simethicone (Mylicon Chew Tab) 80 mg PO QID [facility] Stop: 09/10/18 14:01 Last Admin: 09/07/18 13:32 Dose: 80 mg Vitamin A (Vitamin A & D Oint Ud Foilpak) 1 ea TOP BID [facility] Last Admin: 09/07/18 10:00 Dose: 1 ea - Labs Labs: 09/07/18 07:35 09/07/18 07:35 - Constitutional Appears: Non-toxic, Chronically Ill - Head Exam Head Exam: NORMOCEPHALIC - Eye Exam Eye Exam: absent: Scleral icterus - ENT Exam ENT Exam: Mucous Membranes Dry - Neck Exam Neck Exam: absent: Lymphadenopathy - Respiratory Exam Respiratory Exam: Decreased Breath Sounds - Cardiovascular Exam Cardiovascular Exam: Clicks - GI/Abdominal Exam GI & Abdominal Exam: Distended - Rectal Exam Rectal Exam: Deferred - Extremities Exam Extremities Exam: Pedal Edema - Back Exam Back Exam: absent: CVA tenderness (L), CVA tenderness (R) Assessment and Plan (1) Multifocal pneumonia Status: Acute (2) TIM (acute kidney injury) Status: Acute (3) Asthma without status asthmaticus Status: Acute (4) CO2 retention Status: Acute (5) COPD exacerbation Status: Acute (6) Cellulitis Status: Acute
--- NOTE | 2018-09-07 20:15 | CP.PCM.PN ---
Subjective - Date & Time of Evaluation Date of Evaluation: 09/07/18 Time of Evaluation: 20:12 - Subjective Subjective: BP reached 186/100 at 10am; IV lopressor 5 mg given. Pt asymptomatic. Objective - Vital Signs/Intake and Output Vital Signs (last 24 hours): Temp Pulse Resp BP Pulse Ox 98.2 F 81 20 148/80 96 09/07/18 15:15 09/07/18 15:15 09/07/18 15:15 09/07/18 17:33 09/07/18 15:15 - Medications Medications: Current Medications Acetaminophen (Tylenol 325mg Tab) 650 mg PO Q6 PRN PRN Reason: Fever >100.4 F Last Admin: 09/03/18 05:08 Dose: 650 mg Albuterol Sulfate (Albuterol 0.083% Inhal Gay (2.5 Mg/3 Ml) Ud) 2.5 mg INH RQ2 PRN PRN Reason: Wheezing Albuterol/Ipratropium (Duoneb 3 Mg/0.5 Mg (3 Ml) Ud) 3 ml INH RQ6 [facility] Last Admin: 09/07/18 20:12 Dose: 3 ml Artificial Tears (Artificial Tears Refresh Celluvisc) 0 ml OU BID [facility] Last Admin: 09/07/18 17:30 Dose: 2 drop Aspirin (Ecotrin) 81 mg PO DAILY [facility] Last Admin: 09/07/18 10:00 Dose: 81 mg Benzonatate (Tessalon Perles) 100 mg PO TID [facility] Last Admin: 09/07/18 17:30 Dose: 100 mg Bisacodyl (Dulcolax) 10 mg [place] DAILY [facility] Stop: 09/12/18 13:30 Last Admin: 09/07/18 15:20 Dose: Not Given Dextrose (Dextrose 50% Inj) 0 ml IV STAT PRN; Protocol PRN Reason: Hypoglycemia Protocol Dextrose (Glutose 15) 0 gm PO ONCE PRN; Protocol PRN Reason: Hypoglycemia Protocol Diltiazem HCl (Cardizem Cd) 180 mg PO DAILY [facility] Last Admin: 09/07/18 10:01 Dose: 180 mg Furosemide (Lasix) 20 mg PO BID [facility] Last Admin: 09/06/18 19:17 Dose: 20 mg Glucagon (Glucagen Diagnostic Kit) 0 mg IM STAT PRN; Protocol PRN Reason: Hypoglycemia Protocol Guaifenesin (Mucinex La) 600 mg PO Q12 [facility] Last Admin: 09/07/18 10:01 Dose: 600 mg Heparin Sodium (Porcine) (Heparin) 5,000 units SC Q8H [facility] Last Admin: 09/07/18 13:32 Dose: 5,000 units Hydrochlorothiazide (Microzide) 12.5 mg PO DAILY [facility] Last Admin: 09/03/18 09:27 Dose: 12.5 mg Moxifloxacin HCl (Avelox Iv 400mg/250ml Ns) 400 mg in 250 mls @ 167 mls/hr IVPB Q24H [facility]; Protocol Last Admin: 09/07/18 10:00 Dose: 167 mls/hr Ceftaroline Fosamil 400 mg/ (Sodium Chloride) 100 mls @ 100 mls/hr IVPB Q12H [facility]; Protocol Insulin Aspart (Novolog) 0 unit SC ACHS [facility] Last Admin: 09/07/18 17:30 Dose: 5 units Insulin Aspart (Novolog) 18 unit SC AC [facility] Last Admin: 09/07/18 17:32 Dose: 18 units Insulin Glargine (Lantus) 44 unit SC HS [facility] Losartan Potassium (Cozaar) 50 mg PO DAILY [facility] Last Admin: 09/07/18 10:04 Dose: 50 mg Methadone HCl (Methadose) 120 mg PO DAILY [facility] Stop: 09/11/18 10:01 Last Admin: 09/07/18 10:01 Dose: 120 mg Methylprednisolone (Solu-Medrol) 40 mg IVP Q12 [facility] Pantoprazole Sodium (Protonix Ec Tab) 40 mg PO DAILY [facility] Last Admin: 09/07/18 10:00 Dose: 40 mg Saccharomyces Boulardii (Florastor) 250 mg PO BID [facility] Last Admin: 09/07/18 17:29 Dose: 250 mg Simethicone (Mylicon Chew Tab) 80 mg PO QID [facility] Stop: 09/10/18 14:01 Last Admin: 09/07/18 17:30 Dose: 80 mg Vitamin A (Vitamin A & D Oint Ud Foilpak) 1 ea TOP BID [facility] Last Admin: 09/07/18 17:30 Dose: 1 ea - Labs Labs: 09/07/18 07:35 09/07/18 07:35 - Constitutional Appears: Well - Head Exam Head Exam: ATRAUMATIC, NORMAL INSPECTION - Eye Exam Eye Exam: EOMI, Normal appearance - Neck Exam Neck Exam: Normal Inspection - Respiratory Exam Respiratory Exam: Clear to Ausculation Bilateral, NORMAL BREATHING PATTERN Additional comments: faint lower lobe crackles - Cardiovascular Exam Cardiovascular Exam: REGULAR RHYTHM - GI/Abdominal Exam GI & Abdominal Exam: Soft, Normal Bowel Sounds - Neurological Exam Neurological Exam: Alert, Awake, Normal Gait, Oriented x3 Assessment and Plan - Assessment and Plan (Free Text) Assessment: 58 y/o f with mycoplasma PNA, COPD/ ASTHMA, DM, HTN being hospitalized initially for LE pain now being actively treated for m. pneumoniae and controlling her COPD/Asthma. 1) mycoplasma PNA -Tmax 101.5, then 100.7 on 09/03, 6am shortly after first dose of zosyn. PICC inserted 09/03 -zosyn 3.375 q8h started 09/03 discontinued 09/04 and ceftaroline 400 mg started for MRSA coverage per Dr. Holliday (ID) -follow ID recs Dr. Holliday - who added moxi 400 mg q24 09/04 -florastor 250 mg PO BID -procalcitonin downtrending; ordered repeat procalcitonin for 09/08 -legionella AB negative 09/03 -Bcx no growth 2) COPD/asthma -duonebs q6h PRN -BiPAB at night -solumedrol 40 mg IV q8h -s/p racemic epi 2.25 x 1 09/05 -follow Dr. Zhang recs pulm 3) TIM 2/2 FLORINDA most likely per renal - resolving, electrolyte abnormalities -hyperphos and hypocalcemia trend -PTH high at 173 (normal range 14-64). Hyperparathyroid workup needed outpatient -phoslo 667 mg x 1 as needed -trend electrolytes 4) DM -novolog 70/30, 40 ACB and 30 ACD -lantus q12h 5units -patient on HARJINDER - losartan 100 mg daily renoprotection 5) HTN -dilt 180 mg PO (home med) -losartan 100 mg daily -HCTZ 12.5 mg daily withheld given TIM 7) polysubstance use -counseling -UDS positive for methadone, on methadone 120 mg maintenance (dosage confirmed by RN who called the clinic) 8) constipation -simethicone 40 mg QID PRN -miralax daily -dulcolax suppository reordered; pt requests RN to insert 9) URI vs. allergic rhinitis -artificial tears -vitamin A and D ointment for lips -mucinex 600mg PO BID -tessalon kimberly DVT ppx: heparin 5000mg sq GI ppx: protonix 40 mg PO case discussed with Dr. Yury Diego, DO PGY-1
[2018-09-07] MEDS ORDERED: (Lantus) Insulin Glargine, Recombinant SC SCH (22:00)
--- NOTE | 2018-09-08 00:42 | CP.PCM.PCO ---
Addendum entered and electronically signed by Kain Cordova 09/08/18 07:02: Received page at approx 6Am for chest pain. Patient stated she had 15 minutes of chest pain following walking from the bathroom to the chair. Pain was crushing chest pain that involved her left arm. Patient stated she had SOB. At time of examination, patient was sitting in bed comfortably, in no pain. Patient stated he just happened that one time. No nausea, vomiting, SOB. EKG & trops ordered X1. Signed off to day team to follow up. Addendum entered and electronically signed by Kain Cordova 09/08/18 02:49: House Doctor note: Paged for hypertension in upper 160s/ 170s w/ HR in mid to upper 50s. Patient seen and examined at bedside. Patient lying in bed in no acute distress. Patient denies chest pain, SOB (currently on BIPAP), headaches, vision changes. Physical examination S1, S2, no wheezes in B/L lungs. No IV hydralazine available. Do to HR, no IVP of beta blockers. 1 X PO hydralazine 10 mg ordered. Vitals rechecked, now in 140s. Will sign off to day team. (Recently patients lasix and HCTZ held 2/2 to TIM) Original Note:
[2018-09-08] MEDS: Albuterol-Ipratrop 3 mg / 0.5 (3 ml) UD INH SCH ×4 (01:25→20:16)
[2018-09-08] MEDS: (Novolog) Insulin Aspart, Recombinant 100 u/ml 10 ml vial SC SCH ×7 (06:54→22:20)
[2018-09-08 07:29] LABS: LYMPH # 2.2 K/uL (1.0-4.3); NRBC % 0.3 % (0.0-2.0)
[2018-09-08 08:01] LABS: BASO % 0.2 % (0.0-2.0); EOS % 0.1 % (0.0-4.0); HEMOGLOBIN 11.3 g/dL (11.0-16.0); LYMPH % 19.8 % (20.0-40.0); MEAN CELL VOLUME 69.2 fL (81.0-99.0); MEAN CORPUSCULAR HGB CONC 30.3 g/dL (33.0-37.0); MEAN PLATELET VOLUME 9.6 fL (7.2-11.7); MONO # 0.5 K/uL (0.0-0.8); MONO % 4.9 % (0.0-10.0); NEUT # 8.2 K/uL (1.8-7.0); RBC 5.36 Mil/uL (3.80-5.20); RED CELL DISTRIBUTION WIDTH 17.4 % (11.5-14.5); WHITE BLOOD COUNT 10.9 K/uL (4.8-10.8)
--- NOTE | 2018-09-08 08:14 | PN ---
DATE: 09/07/2018 ENDOCRINOLOGY FOLLOWUP NOTE LOCATION: Room 663. SUBJECTIVE: This is a 58-year-old female with recent uncontrolled type 2 insulin-requiring diabetes, presenting here with acute exacerbation with COPD with concomitant multifocal pneumonia and currently receiving IV antibiotic management with concomitant IV steroid therapy as given with expected marked hyperglycemic accelerations as noted. LABORATORY DATA: Her glucose levels overnight have ranged from 293 to 493 mg/dL. Her chemistry showed a BUN of 34, sodium 139, potassium 4.7, chloride 92, CO2 of 37, glucose 293, and creatinine 1.1. ASSESSMENT: This is a 58-year-old female with uncontrolled and decompensated type 2 insulin-requiring diabetes, presented here with marked hyperglycemic accelerations and concomitant smaller hyperglycemic state as noted. As mentioned above, she also presented with acute exacerbation of chronic obstructive pulmonary disease with multifocal pneumonia, which will contribute to increased insulin resistance and further impaired glucose tolerance thereof. PLAN OF MANAGEMENT: We will modify once again her basal and bolus insulin regimen to optimize metabolic control. We will increase the NovoLog to 18 units subcutaneously t.i.d. before meals to start today as ordered. We will increase the basal insulin with Lantus to be given at much higher dose of 44 units subcutaneously at bedtime daily to start tonight. We will also increase the prandial insulin with NovoLog to be increased to 18 units subcutaneously t.i.d. before meals again to start at dinner time today as ordered. We will titrate incrementally as indicated to optimize metabolic control. We will obtain serial obtain serial chemistries and supplement accordingly as needed. We will follow with you. Tiny Camarena MD
[2018-09-08 08:18] LABS: ALB/GLOB RATIO 1.1 (1.0-2.1); ALBUMIN 3.7 g/dL (3.5-5.0); ALT/SGPT 33 U/L (9-52); AST/SGOT 19 U/L (14-36); BLOOD UREA NITROGEN 38 mg/dL (7-17); CALCIUM 9.2 mg/dl (8.6-10.4); GFR NON-AFRICAN AMERICAN 46
[2018-09-08 08:24] LABS: CK-MB 2.35 ng/mL (0.0-3.38)
--- NOTE | 2018-09-08 08:25 | CARD ---
APPROVED REPORT Date of service: 09/03/2018 EKG Measurement Heart [id number] <Conclusion> Sinus tachycardia Nonspecific T wave abnormality Abnormal ECG
--- NOTE | 2018-09-08 08:27 | CARD ---
APPROVED REPORT Date of service: 09/03/2018 EKG Measurement Heart [id number] <Conclusion> Normal sinus rhythm Nonspecific T wave abnormality Prolonged QT Abnormal ECG
[2018-09-08] MEDS: Saccharomyces Boulardi 250 mg Cap PO SCH ×2 (09:10→18:06)
[2018-09-08] MEDS: guaiFENesin 600 mg ER Tab PO SCH ×2 (09:10→22:20)
[2018-09-08] MEDS: Pantoprazole 40 mg EC Tab PO SCH (09:11)
[2018-09-08] MEDS: Simethicone 80 mg Chewtab PO SCH ×4 (09:11→22:20)
[2018-09-08] MEDS: CARBOXYMETHYLCELLULOSE 0.5% OU SCH ×2 (09:11→18:07)
[2018-09-08] MEDS: Methadone 40 mg Tab PO SCH (09:11)
[2018-09-08] MEDS: Vitamins A & D Oint UD Foilpak TOP SCH ×2 (09:11→18:07)
[2018-09-08] MEDS: MethylPREDNISolone 40 mg Vial IVP SCH ×2 (09:15→22:20)
[2018-09-08] MEDS: diltiaZEM 180 mg/24 Hours CD Cap PO SCH (10:00)
[2018-09-08] MEDS: Moxifloxacin IV 400mg/250ml NS 400 MG/250 ML BAG IVPB SCH (10:00)
--- NOTE | 2018-09-08 10:42 | CP.PCM.PN ---
<Shira Diego - Last Filed: 09/08/18 13:52> Subjective - Date & Time of Evaluation Date of Evaluation: 09/08/18 Time of Evaluation: 10:42 - Subjective Subjective: Patient reported to have HTN 160s-170s SBP overnight. Hydralazine 10 mg PO given and brought it down to 140s. Patient denies headache. Chest pain episode for 15 mins last night as well beforehand while she was going to the bathroom. It resolved spontaneously. ROMIs orddered and were negative. Of note, patient also reported breaking out in hives after taking hydralazine. Her lips and eyes have been itching as well. SOB and cough improving. Objective - Vital Signs/Intake and Output Vital Signs (last 24 hours): Temp Pulse Resp BP Pulse Ox 98.4 F 94 H 20 160/90 H 93 L 09/08/18 07:00 09/08/18 07:00 09/08/18 07:00 09/08/18 09:10 09/08/18 07:00 Intake and Output: 09/08/18 09/08/18 06:59 18:59 Intake Total 118 Balance 118 - Medications Medications: Current Medications Acetaminophen (Tylenol 325mg Tab) 650 mg PO Q6 PRN PRN Reason: Fever >100.4 F Last Admin: 09/03/18 05:08 Dose: 650 mg Albuterol Sulfate (Albuterol 0.083% Inhal Gay (2.5 Mg/3 Ml) Ud) 2.5 mg INH RQ2 PRN PRN Reason: Wheezing Albuterol/Ipratropium (Duoneb 3 Mg/0.5 Mg (3 Ml) Ud) 3 ml INH RQ6 [facility] Last Admin: 09/08/18 01:25 Dose: 3 ml Artificial Tears (Artificial Tears Refresh Celluvisc) 0 ml OU BID [facility] Last Admin: 09/08/18 09:11 Dose: 2 drop Aspirin (Ecotrin) 81 mg PO DAILY [facility] Last Admin: 09/08/18 09:10 Dose: 81 mg Benzonatate (Tessalon Perles) 100 mg PO TID [facility] Last Admin: 09/08/18 09:10 Dose: 100 mg Bisacodyl (Dulcolax) 10 mg [place] DAILY [facility] Stop: 09/12/18 13:30 Last Admin: 09/08/18 09:19 Dose: Not Given Dextrose (Dextrose 50% Inj) 0 ml IV STAT PRN; Protocol PRN Reason: Hypoglycemia Protocol Dextrose (Glutose 15) 0 gm PO ONCE PRN; Protocol PRN Reason: Hypoglycemia Protocol Diltiazem HCl (Cardizem Cd) 180 mg PO DAILY [facility] Last Admin: 09/08/18 10:00 Dose: 180 mg Furosemide (Lasix) 20 mg PO BID [facility] Last Admin: 09/08/18 09:10 Dose: 20 mg Glucagon (Glucagen Diagnostic Kit) 0 mg IM STAT PRN; Protocol PRN Reason: Hypoglycemia Protocol Guaifenesin (Mucinex La) 600 mg PO Q12 [facility] Last Admin: 09/08/18 09:10 Dose: 600 mg Heparin Sodium (Porcine) (Heparin) 5,000 units SC Q8H [facility] Last Admin: 09/08/18 05:38 Dose: 5,000 units Hydrochlorothiazide (Microzide) 12.5 mg PO DAILY [facility] Last Admin: 09/03/18 09:27 Dose: 12.5 mg Moxifloxacin HCl (Avelox Iv 400mg/250ml Ns) 400 mg in 250 mls @ 167 mls/hr IVPB Q24H [facility]; Protocol Last Admin: 09/08/18 10:00 Dose: 167 mls/hr Ceftaroline Fosamil 400 mg/ (Sodium Chloride) 100 mls @ 100 mls/hr IVPB Q12H [facility]; Protocol Last Admin: 09/08/18 08:41 Dose: 100 mls/hr Insulin Aspart (Novolog) 0 unit SC ACHS [facility] Last Admin: 09/08/18 06:54 Dose: 6 units Insulin Aspart (Novolog) 18 unit SC AC [facility] Last Admin: 09/08/18 06:55 Dose: Not Given Insulin Glargine (Lantus) 44 unit SC HS [facility] Last Admin: 09/07/18 21:19 Dose: 44 units Losartan Potassium (Cozaar) 50 mg PO DAILY [facility] Last Admin: 09/08/18 09:11 Dose: 50 mg Methadone HCl (Methadose) 120 mg PO DAILY [facility] Stop: 09/11/18 10:01 Last Admin: 09/08/18 09:11 Dose: 120 mg Methylprednisolone (Solu-Medrol) 40 mg IVP Q12 [facility] Last Admin: 09/08/18 09:15 Dose: 40 mg Pantoprazole Sodium (Protonix Ec Tab) 40 mg PO DAILY [facility] Last Admin: 09/08/18 09:11 Dose: 40 mg Saccharomyces Boulardii (Florastor) 250 mg PO BID [facility] Last Admin: 09/08/18 09:10 Dose: 250 mg Simethicone (Mylicon Chew Tab) 80 mg PO QID [facility] Stop: 09/10/18 14:01 Last Admin: 09/08/18 09:11 Dose: 80 mg Vitamin A (Vitamin A & D Oint Ud Foilpak) 1 ea TOP BID [facility] Last Admin: 09/08/18 09:11 Dose: 1 ea - Labs Labs: 09/08/18 06:58 09/08/18 06:58 - Head Exam Head Exam: ATRAUMATIC, NORMAL INSPECTION - Eye Exam Eye Exam: EOMI, Normal appearance - ENT Exam ENT Exam: Mucous Membranes Moist, Normal Exam - Neck Exam Neck Exam: Normal Inspection. absent: Lymphadenopathy - Respiratory Exam Respiratory Exam: Clear to Ausculation Bilateral, NORMAL BREATHING PATTERN - Cardiovascular Exam Cardiovascular Exam: REGULAR RHYTHM - GI/Abdominal Exam GI & Abdominal Exam: Soft, Normal Bowel Sounds - Extremities Exam Additional comments: 1+ pitting edema bilaterally distal to knees - Neurological Exam Neurological Exam: Alert, Awake, Oriented x3 - Psychiatric Exam Psychiatric exam: Normal Affect, Normal Mood - Skin Skin Exam: Dry Additional comments: raised erythematous maculopapular faint rash on mandibular surface Assessment and Plan - Assessment and Plan (Free Text) Assessment: 58 y/o f with mycoplasma PNA, COPD/ ASTHMA, DM, HTN being hospitalized initially for LE pain now being actively treated for m. pneumoniae and controlling her COPD/Asthma. mycoplasma PNA -Tmax 101.5, then 100.7 on 09/03, 6am shortly after first dose of zosyn. PICC inserted 09/03 -zosyn 3.375 q8h started 09/03 discontinued 09/04 and ceftaroline 400 mg started for MRSA coverage per Dr. Holliday (ID) -follow ID recs Dr. Holliday - who added moxi 400 mg q24 09/04 -florastor 250 mg PO BID -procalcitonin downtrending; ordered repeat procalcitonin for today -legionella AB negative 09/03 -Bcx no growth COPD/asthma -duonebs q6h PRN -BiPAB at night -solumedrol 40 mg IV q8h -> taper to [address] Zhang -s/p racemic epi 2.25 x 1 09/05 -mucinex 600mg PO BID -viki harris -follow Dr. Vicente pinedo pulconchis dermatitis/atopy -patient's rash and itchy mouth/eyes could possibly be reaction to hydralazine x 1 last night -d/c hydralazine for now -provided benadryl 20 mg PO x 1 DM -read 464 before breakfast 09/08, RN adjusted to appropriate insulin dose. Pending accuchecks later -novolog 70/30, 40 ACB and 30 ACD -lantus q12h 5units -patient on HARJINDER - losartan 100 mg daily renoprotection -decreased today on 09/08 solumedrol to 20 mg IV BID TIM 2/2 FLORINDA most likely per renal - resolving, electrolyte abnormalities -hyperphos and hypocalcemia trend -PTH high at 173 (normal range 14-64). Hyperparathyroid workup needed outpatient -phoslo 667 mg x 1 as needed -trend electrolytes HTN -dilt 180 mg PO (home med) -losartan 100 mg daily -per nephro Dr. Kumar, patient can resume her irbesartan 300 mg (home med) in lieu of losartan and lasix 20 mg (the latter as renal function improved 2/2 FLORINDA) polysubstance use -counseling -UDS positive for methadone, on methadone 120 mg maintenance (dosage confirmed by RN who called the clinic) constipation -simethicone 40 mg QID PRN -miralax daily -dulcolax suppository reordered; pt requests RN to insert DVT ppx: heparin 5000mg sq GI ppx: protonix 40 mg PO dispo: d/c home with physical therapy services, HTN control, glucose control case discussed with Dr. Hany Diego, DO PGY-1 <Janie Leach - Last Filed: 09/15/18 09:36> Objective - Vital Signs/Intake and Output Vital Signs (last 24 hours): Temp Pulse Resp BP Pulse Ox 98.2 F 77 20 126/81 95 09/09/18 15:00 09/09/18 16:08 09/09/18 15:00 09/09/18 17:49 09/09/18 15:00 - Labs Labs: 09/09/18 07:46 09/09/18 07:46 Attending/Attestation - Attestation I have personally seen and examined this patient.: Yes I have fully participated in the care of the patient.: Yes I have reviewed all pertinent clinical information, including history, physical exam and plan: Yes Notes (Text): Seen and examined with my resident Patient denies chest pain,mild sob and cough continue antibiotics Spoke to DR Zhang. we will taper steroid I agree with the resident's documentation
--- NOTE | 2018-09-08 12:45 | CARD ---
APPROVED REPORT Date of service: 09/08/2018 EKG Measurement Heart [id number] <Conclusion> Normal sinus rhythm Normal ECG
--- NOTE | 2018-09-08 16:17 | CP.PCM.PN ---
Subjective - Date & Time of Evaluation Date of Evaluation: 09/08/18 Time of Evaluation: 11:00 - Subjective Subjective: Patient seen and examined at bedside. Patient was hypertensive, and experienced an episode of chest pain overnight. She states that she currently feels better, and denies any chest pain. Patient complains of dry mouth and throat, cough, and constipation. Denies any fevers, chest pain, shortness of breath, sputum production. Patient states that she uses BiPAP at night, and is tolerating well. States her DuoNeb treatments are helping. Plan: Decrease Solumedrol to 20mg Q12H. Objective - Vital Signs/Intake and Output Vital Signs (last 24 hours): Temp Pulse Resp BP Pulse Ox 98.0 F 100 H 20 176/85 H 95 09/08/18 15:00 09/08/18 16:00 09/08/18 15:00 09/08/18 15:00 09/08/18 15:00 Intake and Output: 09/08/18 09/08/18 06:59 18:59 Intake Total 118 Balance 118 - Medications Medications: Current Medications Acetaminophen (Tylenol 325mg Tab) 650 mg PO Q6 PRN PRN Reason: Fever >100.4 F Last Admin: 09/03/18 05:08 Dose: 650 mg Albuterol Sulfate (Albuterol 0.083% Inhal Gay (2.5 Mg/3 Ml) Ud) 2.5 mg INH RQ2 PRN PRN Reason: Wheezing Last Admin: 09/08/18 12:00 Dose: 2.5 mg Albuterol/Ipratropium (Duoneb 3 Mg/0.5 Mg (3 Ml) Ud) 3 ml INH RQ6 [facility] Last Admin: 09/08/18 13:45 Dose: 3 ml Artificial Tears (Artificial Tears Refresh Celluvisc) 0 ml OU BID [facility] Last Admin: 09/08/18 09:11 Dose: 2 drop Aspirin (Ecotrin) 81 mg PO DAILY [facility] Last Admin: 09/08/18 09:10 Dose: 81 mg Benzonatate (Tessalon Perles) 100 mg PO TID [facility] Last Admin: 09/08/18 13:09 Dose: 100 mg Bisacodyl (Dulcolax) 10 mg [place] DAILY [facility] Stop: 09/12/18 13:30 Last Admin: 09/08/18 09:19 Dose: Not Given Dextrose (Dextrose 50% Inj) 0 ml IV STAT PRN; Protocol PRN Reason: Hypoglycemia Protocol Dextrose (Glutose 15) 0 gm PO ONCE PRN; Protocol PRN Reason: Hypoglycemia Protocol Diltiazem HCl (Cardizem Cd) 180 mg PO DAILY [facility] Last Admin: 09/08/18 10:00 Dose: 180 mg Furosemide (Lasix) 20 mg PO BID [facility] Last Admin: 09/08/18 09:10 Dose: 20 mg Glucagon (Glucagen Diagnostic Kit) 0 mg IM STAT PRN; Protocol PRN Reason: Hypoglycemia Protocol Guaifenesin (Mucinex La) 600 mg PO Q12 [facility] Last Admin: 09/08/18 09:10 Dose: 600 mg Heparin Sodium (Porcine) (Heparin) 5,000 units SC Q8H [facility] Last Admin: 09/08/18 12:15 Dose: 5,000 units Hydrochlorothiazide (Microzide) 12.5 mg PO DAILY [facility] Last Admin: 09/03/18 09:27 Dose: 12.5 mg Moxifloxacin HCl (Avelox Iv 400mg/250ml Ns) 400 mg in 250 mls @ 167 mls/hr IVPB Q24H [facility]; Protocol Last Admin: 09/08/18 10:00 Dose: 167 mls/hr Ceftaroline Fosamil 400 mg/ (Sodium Chloride) 100 mls @ 100 mls/hr IVPB Q12H [facility]; Protocol Last Admin: 09/08/18 08:41 Dose: 100 mls/hr Insulin Aspart (Novolog) 0 unit SC ACHS [facility] Last Admin: 09/08/18 12:15 Dose: 6 units Insulin Aspart (Novolog) 30 unit SC AC [facility] Insulin Glargine (Lantus) 60 unit SC HS [facility] Losartan Potassium (Cozaar) 50 mg PO DAILY [facility] Last Admin: 09/08/18 09:11 Dose: 50 mg Losartan Potassium (Cozaar) 100 mg PO DAILY [facility] Stop: 09/15/18 10:01 Methadone HCl (Methadose) 120 mg PO DAILY [facility] Stop: 09/11/18 10:01 Last Admin: 09/08/18 09:11 Dose: 120 mg Methylprednisolone (Solu-Medrol) 20 mg IVP Q12 [facility] Pantoprazole Sodium (Protonix Ec Tab) 40 mg PO DAILY [facility] Last Admin: 10/29/18 09:11 Dose: 40 mg Saccharomyces Boulardii (Florastor) 250 mg PO BID [facility] Last Admin: 09/08/18 09:10 Dose: 250 mg Simethicone (Mylicon Chew Tab) 80 mg PO QID [facility] Stop: 09/10/18 14:01 Last Admin: 09/08/18 13:09 Dose: 80 mg Vitamin A (Vitamin A & D Oint Ud Foilpak) 1 ea TOP BID [facility] Last Admin: 09/08/18 09:11 Dose: 1 ea - Labs Labs: 09/08/18 06:58 09/08/18 06:58 Assessment and Plan (1) Mycoplasma pneumonia Status: Acute (2) COPD exacerbation Status: Acute (3) SANTY (obstructive sleep apnea) Status: Acute
[2018-09-08] MEDS ORDERED: (Lantus) Insulin Glargine, Recombinant SC SCH (22:00)
[2018-09-09] MEDS: Albuterol-Ipratrop 3 mg / 0.5 (3 ml) UD INH SCH ×3 (01:40→13:20)
--- NOTE | 2018-09-09 02:18 | PN ---
DATE: 09/08/2018 LOCATION: Room 663. SUBJECTIVE: This is a 58-year-old female with multifocal pneumonia and also supervening acute exacerbation of COPD, currently on IV steroid therapy and is now being followed closely for metabolic management. Her glycemic levels are fluctuating as noted overnight and have ranged from 396 to 427 and 452 mg/dL. LABORATORY DATA: Her chemistry today showed a BUN of 38, sodium 136, potassium 4.7, chloride 88, CO2 of 39, glucose 464 and creatinine 1.2. PLAN: So at this time we will modify once again her basal and bolus insulin regimen and increase the Lantus to 60 units subcu at bedtime daily, to start tonight. We will also increase the prandial insulin with NovoLog to be given as 30 units subcu t.i.d. before meals, to start today. Her IV steroids are ongoing and being tapered down as noted, and we would expect transient hyperglycemic accelerations with increased insulin resistance incurred from the IV steroids thereof. We will obtain serial chemistries and supplement accordingly as needed. We will follow. Tiny Camarena MD
--- NOTE | 2018-09-09 04:33 | CP.PCM.PN ---
Subjective - Date & Time of Evaluation Date of Evaluation: 09/08/18 Time of Evaluation: 13:00 - Subjective Subjective: Patient reports breathing improved; urinating well though not as much as 2 days ago; Objective - Vital Signs/Intake and Output Vital Signs (last 24 hours): Temp Pulse Resp BP Pulse Ox 98.2 F 90 20 136/84 98 09/08/18 23:05 09/09/18 01:00 09/08/18 23:05 09/08/18 23:05 09/08/18 23:05 - Medications Medications: Current Medications Acetaminophen (Tylenol 325mg Tab) 650 mg PO Q6 PRN PRN Reason: Fever >100.4 F Last Admin: 09/03/18 05:08 Dose: 650 mg Albuterol Sulfate (Albuterol 0.083% Inhal Gay (2.5 Mg/3 Ml) Ud) 2.5 mg INH RQ2 PRN PRN Reason: Wheezing Last Admin: 09/08/18 12:00 Dose: 2.5 mg Albuterol/Ipratropium (Duoneb 3 Mg/0.5 Mg (3 Ml) Ud) 3 ml INH RQ6 [facility] Last Admin: 09/09/18 01:40 Dose: 3 ml Artificial Tears (Artificial Tears Refresh Celluvisc) 0 ml OU BID [facility] Last Admin: 09/08/18 18:07 Dose: 2 drop Aspirin (Ecotrin) 81 mg PO DAILY [facility] Last Admin: 09/08/18 09:10 Dose: 81 mg Benzonatate (Tessalon Perles) 100 mg PO TID [facility] Last Admin: 09/08/18 18:06 Dose: 100 mg Bisacodyl (Dulcolax) 10 mg [place] DAILY [facility] Stop: 09/12/18 13:30 Last Admin: 09/08/18 09:19 Dose: Not Given Dextrose (Dextrose 50% Inj) 0 ml IV STAT PRN; Protocol PRN Reason: Hypoglycemia Protocol Dextrose (Glutose 15) 0 gm PO ONCE PRN; Protocol PRN Reason: Hypoglycemia Protocol Diltiazem HCl (Cardizem Cd) 180 mg PO DAILY [facility] Last Admin: 09/08/18 10:00 Dose: 180 mg Furosemide (Lasix) 20 mg PO BID [facility] Last Admin: 09/08/18 18:06 Dose: 20 mg Glucagon (Glucagen Diagnostic Kit) 0 mg IM STAT PRN; Protocol PRN Reason: Hypoglycemia Protocol Guaifenesin (Mucinex La) 600 mg PO Q12 [facility] Last Admin: 09/08/18 22:20 Dose: 600 mg Heparin Sodium (Porcine) (Heparin) 5,000 units SC Q8H [facility] Last Admin: 09/08/18 22:20 Dose: 5,000 units Hydrochlorothiazide (Microzide) 12.5 mg PO DAILY [facility] Last Admin: 09/03/18 09:27 Dose: 12.5 mg Moxifloxacin HCl (Avelox Iv 400mg/250ml Ns) 400 mg in 250 mls @ 167 mls/hr IVPB Q24H [facility]; Protocol Last Admin: 09/08/18 10:00 Dose: 167 mls/hr Ceftaroline Fosamil 400 mg/ (Sodium Chloride) 100 mls @ 100 mls/hr IVPB Q12H [facility]; Protocol Last Admin: 09/08/18 22:20 Dose: 100 mls/hr Insulin Aspart (Novolog) 0 unit SC ACHS [facility] Last Admin: 09/08/18 22:20 Dose: 4 units Insulin Aspart (Novolog) 30 unit SC AC [facility] Last Admin: 09/08/18 18:08 Dose: 30 u Insulin Glargine (Lantus) 60 unit SC HS [facility] Last Admin: 09/08/18 22:20 Dose: 60 units Losartan Potassium (Cozaar) 50 mg PO DAILY [facility] Last Admin: 09/08/18 09:11 Dose: 50 mg Losartan Potassium (Cozaar) 100 mg PO DAILY [facility] Stop: 09/15/18 10:01 Methadone HCl (Methadose) 120 mg PO DAILY [facility] Stop: 09/11/18 10:01 Last Admin: 09/08/18 09:11 Dose: 120 mg Methylprednisolone (Solu-Medrol) 20 mg IVP Q12 [facility] Last Admin: 09/08/18 22:20 Dose: 20 mg Pantoprazole Sodium (Protonix Ec Tab) 40 mg PO DAILY [facility] Last Admin: 09/08/18 09:11 Dose: 40 mg Saccharomyces Boulardii (Florastor) 250 mg PO BID [facility] Last Admin: 09/08/18 18:06 Dose: 250 mg Simethicone (Mylicon Chew Tab) 80 mg PO QID [facility] Stop: 09/10/18 14:01 Last Admin: 09/08/18 22:20 Dose: 80 mg Vitamin A (Vitamin A & D Oint Ud Foilpak) 1 ea TOP BID [facility] Last Admin: 09/08/18 18:07 Dose: 1 ea - Labs Labs: 09/08/18 06:58 09/08/18 06:58 - Constitutional Appears: Non-toxic, No Acute Distress - Eye Exam Eye Exam: Normal appearance - Respiratory Exam Respiratory Exam: Clear to Ausculation Bilateral. absent: Respiratory Distress - Cardiovascular Exam Cardiovascular Exam: RRR, +S1, +S2 - GI/Abdominal Exam GI & Abdominal Exam: Soft. absent: Distended, Tenderness - Extremities Exam Additional comments: mild lower leg edema (improved); - Neurological Exam Neurological Exam: Alert, Awake - Psychiatric Exam Psychiatric exam: Normal Mood. absent: Agitated - Skin Skin Exam: Warm. absent: Cyanosis Assessment and Plan (1) Respiratory failure Assessment & Plan: Acute on chronic hypoxemic/hypercapneic resp failure secondary to PNA/COPD exacerbation, possible (diastolic) CHF exacerbation in the setting of TIM; overall improved; recommend to continue PO lasix 20 mg bid, can d/c home on once daily dosing; Status: Acute (2) TIM (acute kidney injury) Assessment & Plan: ATN from contrast injury, resolving; stable volume and electrolyte status; continue to avoid nephrotoxic agents; Status: Acute (3) HTN (hypertension) Assessment & Plan: BP elevated; was on max dose irbesartan at home, can increase losartan to 100 mg while here; Status: Chronic (4) CHF (congestive heart failure) Status: Acute
[2018-09-09 08:00] LABS: MEAN CORPUSCULAR HEMOGLOBIN 21.2 pg (27.0-31.0); MONO # 1.1 K/uL (0.0-0.8); MONO % 9.1 % (0.0-10.0); RBC 5.19 Mil/uL (3.80-5.20)
[2018-09-09 08:07] LABS: BASO % 0.2 % (0.0-2.0); LYMPH # 2.3 K/uL (1.0-4.3); LYMPH % 18.7 % (20.0-40.0); MEAN CELL VOLUME 68.9 fL (81.0-99.0); MEAN CORPUSCULAR HGB CONC 30.7 g/dL (33.0-37.0); MEAN PLATELET VOLUME 10.2 fL (7.2-11.7); NRBC % 0.2 % (0.0-2.0); RED CELL DISTRIBUTION WIDTH 17.4 % (11.5-14.5); WHITE BLOOD COUNT 12.5 K/uL (4.8-10.8)
[2018-09-09] MEDS: (Novolog) Insulin Aspart, Recombinant 100 u/ml 10 ml vial SC SCH ×6 (08:19→17:50)
[2018-09-09 08:28] LABS: ALB/GLOB RATIO 1.1 (1.0-2.1); ALBUMIN 3.5 g/dL (3.5-5.0); ALT/SGPT 29 U/L (9-52); AST/SGOT 25 U/L (14-36); BLOOD UREA NITROGEN 39 mg/dL (7-17); CALCIUM 9.3 mg/dl (8.6-10.4); GFR NON-AFRICAN AMERICAN 51
[2018-09-09] MEDS: Vitamins A & D Oint UD Foilpak TOP SCH ×2 (09:32→17:50)
[2018-09-09] MEDS: Methadone 40 mg Tab PO SCH (09:32)
[2018-09-09] MEDS: guaiFENesin 600 mg ER Tab PO SCH (09:33)
[2018-09-09] MEDS: MethylPREDNISolone 40 mg Vial IVP SCH (09:33)
[2018-09-09] MEDS: Simethicone 80 mg Chewtab PO SCH ×3 (09:33→17:49)
[2018-09-09] MEDS: Saccharomyces Boulardi 250 mg Cap PO SCH ×2 (09:33→17:50)
[2018-09-09] MEDS: Pantoprazole 40 mg EC Tab PO SCH (09:33)
[2018-09-09] MEDS: diltiaZEM 180 mg/24 Hours CD Cap PO SCH (09:33)
[2018-09-09] MEDS: CARBOXYMETHYLCELLULOSE 0.5% OU SCH ×2 (09:47→17:53)
--- NOTE | 2018-09-09 09:48 | CP.PCM.PN ---
Subjective - Date & Time of Evaluation Date of Evaluation: 09/09/18 Time of Evaluation: 09:41 - Subjective Subjective: Nephrology Consult Note for Dr. Kumar Patient seen and examined at bedside. No acute overnight events. Patient denies CP, SOB, n/v/d, abdominal pain, fever, chills. Objective - Vital Signs/Intake and Output Vital Signs (last 24 hours): Temp Pulse Resp BP Pulse Ox 98.5 F 80 20 145/88 94 L 09/09/18 07:15 09/09/18 07:15 09/09/18 07:15 09/09/18 09:35 09/09/18 07:15 - Medications Medications: Current Medications Acetaminophen (Tylenol 325mg Tab) 650 mg PO Q6 PRN PRN Reason: Fever >100.4 F Last Admin: 09/03/18 05:08 Dose: 650 mg Albuterol Sulfate (Albuterol 0.083% Inhal Gay (2.5 Mg/3 Ml) Ud) 2.5 mg INH RQ2 PRN PRN Reason: Wheezing Last Admin: 09/08/18 12:00 Dose: 2.5 mg Albuterol/Ipratropium (Duoneb 3 Mg/0.5 Mg (3 Ml) Ud) 3 ml INH RQ6 [facility] Last Admin: 09/09/18 01:40 Dose: 3 ml Artificial Tears (Artificial Tears Refresh Celluvisc) 0 ml OU BID [facility] Last Admin: 09/08/18 18:07 Dose: 2 drop Aspirin (Ecotrin) 81 mg PO DAILY [facility] Last Admin: 09/09/18 09:33 Dose: 81 mg Benzonatate (Tessalon Perles) 100 mg PO TID [facility] Last Admin: 09/09/18 09:33 Dose: 100 mg Bisacodyl (Dulcolax) 10 mg GA DAILY [facility] Stop: 09/12/18 13:30 Last Admin: 09/09/18 09:41 Dose: Not Given Dextrose (Dextrose 50% Inj) 0 ml IV STAT PRN; Protocol PRN Reason: Hypoglycemia Protocol Dextrose (Glutose 15) 0 gm PO ONCE PRN; Protocol PRN Reason: Hypoglycemia Protocol Diltiazem HCl (Cardizem Cd) 180 mg PO DAILY [facility] Last Admin: 09/09/18 09:33 Dose: 180 mg Furosemide (Lasix) 20 mg PO BID [facility] Last Admin: 09/09/18 09:35 Dose: 20 mg Glucagon (Glucagen Diagnostic Kit) 0 mg IM STAT PRN; Protocol PRN Reason: Hypoglycemia Protocol Guaifenesin (Mucinex La) 600 mg PO Q12 [facility] Last Admin: 09/09/18 09:33 Dose: 600 mg Heparin Sodium (Porcine) (Heparin) 5,000 units SC Q8H [facility] Last Admin: 09/09/18 05:49 Dose: 5,000 units Hydrochlorothiazide (Microzide) 12.5 mg PO DAILY [facility] Last Admin: 09/03/18 09:27 Dose: 12.5 mg Moxifloxacin HCl (Avelox Iv 400mg/250ml Ns) 400 mg in 250 mls @ 167 mls/hr IVPB Q24H [facility]; Protocol Last Admin: 09/08/18 10:00 Dose: 167 mls/hr Ceftaroline Fosamil 400 mg/ (Sodium Chloride) 100 mls @ 100 mls/hr IVPB Q12H [facility]; Protocol Last Admin: 09/09/18 08:31 Dose: 100 mls/hr Insulin Aspart (Novolog) 0 unit SC ACHS [facility] Last Admin: 09/09/18 08:19 Dose: 4 units Insulin Aspart (Novolog) 30 unit SC AC [facility] Last Admin: 09/09/18 08:19 Dose: 30 u Insulin Glargine (Lantus) 60 unit SC HS [facility] Last Admin: 09/08/18 22:20 Dose: 60 units Losartan Potassium (Cozaar) 100 mg PO DAILY [facility] Stop: 09/15/18 10:01 Last Admin: 09/09/18 09:33 Dose: 100 mg Methadone HCl (Methadose) 120 mg PO DAILY [facility] Stop: 09/12/18 10:01 Last Admin: 09/09/18 09:32 Dose: 120 mg Methylprednisolone (Solu-Medrol) 20 mg IVP Q12 [facility] Last Admin: 09/09/18 09:33 Dose: 20 mg Pantoprazole Sodium (Protonix Ec Tab) 40 mg PO DAILY [facility] Last Admin: 09/09/18 09:33 Dose: 40 mg Saccharomyces Boulardii (Florastor) 250 mg PO BID [facility] Last Admin: 09/09/18 09:33 Dose: 250 mg Simethicone (Mylicon Chew Tab) 80 mg PO QID [facility] Stop: 09/10/18 14:01 Last Admin: 09/09/18 09:33 Dose: 80 mg Vitamin A (Vitamin A & D Oint Ud Foilpak) 1 ea TOP BID [facility] Last Admin: 09/09/18 09:32 Dose: 1 ea - Labs Labs: 09/09/18 07:46 09/09/18 07:46 - Constitutional Appears: No Acute Distress - Head Exam Head Exam: NORMAL INSPECTION - Eye Exam Eye Exam: Normal appearance - ENT Exam ENT Exam: Mucous Membranes Moist, Normal Exam - Respiratory Exam Respiratory Exam: Wheezes. absent: Decreased Breath Sounds, Rales, Rhonchi, Respiratory Distress - Cardiovascular Exam Cardiovascular Exam: RRR, +S1, +S2. absent: Gallop, Rubs, Murmur - GI/Abdominal Exam GI & Abdominal Exam: Soft. absent: Distended, Guarding, Tenderness, Rebound - Extremities Exam Extremities Exam: Pedal Edema (1+) - Neurological Exam Neurological Exam: Alert, Awake, Oriented x3 - Psychiatric Exam Psychiatric exam: Normal Affect, Normal Mood - Skin Skin Exam: Dry, Intact, Normal Color, Warm Assessment and Plan - Assessment and Plan (Free Text) Assessment: 58 yo F with PMH of TIA, CVA 2011, Obesity, DM, HTN, HLD, and asthma admitted for sepsis 2/2 myoplasma pneumonia and subsequently developed acute renal failure s/p CT with contrast. Plan: 1. Acute kidney injury - Likely 2/2 FLORINDA - Previous history of FLORINDA; would adequately ppx if any future contrast are needed - Renal function improving - Avoid nephrotoxic agents 2. Sepsis 2/2 Mycoplasma Pneumonia - Acute on chronic hypoxemic/hypercapneic resp failure - CTA chest negative for PE, showed bilateral lower lobe infiltrates - Mycoplasma pneumoniae IgM positive - Cont IV abx renally dosed per ID 3. HTN - Cont Losartan 100 mg daily - Resume HCTZ on discharge 4. CHF - Recommend continuing PO lasix 20 mg bid, can d/c home on once daily dosing Case reviewed with attending, Dr. Kumar. Prashanth Miramontes DO PGY2
[2018-09-09] MEDS: Moxifloxacin IV 400mg/250ml NS 400 MG/250 ML BAG IVPB SCH (09:49)
--- NOTE | 2018-09-09 13:46 | CP.PCM.PN ---
Subjective - Date & Time of Evaluation Date of Evaluation: 09/09/18 Time of Evaluation: 13:35 - Subjective Subjective: Patient had a BM before she was seen and examined this morning. She states she is still wheezing. Otherwise, patient not in any pain. Objective - Vital Signs/Intake and Output Vital Signs (last 24 hours): Temp Pulse Resp BP Pulse Ox 98.5 F 80 20 145/88 94 L 09/09/18 07:15 09/09/18 07:15 09/09/18 07:15 09/09/18 09:35 09/09/18 07:15 - Medications Medications: Current Medications Acetaminophen (Tylenol 325mg Tab) 650 mg PO Q6 PRN PRN Reason: Fever >100.4 F Last Admin: 09/03/18 05:08 Dose: 650 mg Albuterol Sulfate (Albuterol 0.083% Inhal Gay (2.5 Mg/3 Ml) Ud) 2.5 mg INH RQ2 PRN PRN Reason: Wheezing Last Admin: 09/08/18 12:00 Dose: 2.5 mg Albuterol/Ipratropium (Duoneb 3 Mg/0.5 Mg (3 Ml) Ud) 3 ml INH RQ6 [facility] Last Admin: 09/09/18 07:40 Dose: 3 ml Artificial Tears (Artificial Tears Refresh Celluvisc) 0 ml OU BID [facility] Last Admin: 09/09/18 09:47 Dose: 1 drop Aspirin (Ecotrin) 81 mg PO DAILY [facility] Last Admin: 09/09/18 09:33 Dose: 81 mg Benzonatate (Tessalon Perles) 100 mg PO TID [facility] Last Admin: 09/09/18 09:33 Dose: 100 mg Bisacodyl (Dulcolax) 10 mg MD DAILY [facility] Stop: 09/12/18 13:30 Last Admin: 09/09/18 09:41 Dose: Not Given Dextrose (Dextrose 50% Inj) 0 ml IV STAT PRN; Protocol PRN Reason: Hypoglycemia Protocol Dextrose (Glutose 15) 0 gm PO ONCE PRN; Protocol PRN Reason: Hypoglycemia Protocol Diltiazem HCl (Cardizem Cd) 180 mg PO DAILY [facility] Last Admin: 09/09/18 09:33 Dose: 180 mg Fluticasone/Vilanterol (Breo Ellipta 100-25 Mcg Inh) 1 puff INH RQD [facility] Stop: 09/18/18 08:01 Furosemide (Lasix) 20 mg PO BID [facility] Last Admin: 09/09/18 09:35 Dose: 20 mg Glucagon (Glucagen Diagnostic Kit) 0 mg IM STAT PRN; Protocol PRN Reason: Hypoglycemia Protocol Guaifenesin (Mucinex La) 600 mg PO Q12 [facility] Last Admin: 09/09/18 09:33 Dose: 600 mg Hydrochlorothiazide (Microzide) 12.5 mg PO DAILY [facility] Last Admin: 09/03/18 09:27 Dose: 12.5 mg Insulin Aspart (Novolog) 0 unit SC ACHS [facility] Last Admin: 09/09/18 12:28 Dose: Not Given Insulin Aspart (Novolog) 30 unit SC AC [facility] Last Admin: 09/09/18 12:39 Dose: 30 u Insulin Glargine (Lantus) 60 unit SC HS [facility] Last Admin: 09/08/18 22:20 Dose: 60 units Losartan Potassium (Cozaar) 100 mg PO DAILY [facility] Stop: 09/15/18 10:01 Last Admin: 09/09/18 09:33 Dose: 100 mg Moxifloxacin HCl (Avelox) 400 mg PO DAILY [facility]; Protocol Pantoprazole Sodium (Protonix Ec Tab) 40 mg PO DAILY [facility] Last Admin: 09/09/18 09:33 Dose: 40 mg Prednisone (Prednisone Tab) 20 mg PO BID [facility] Saccharomyces Boulardii (Florastor) 250 mg PO BID [facility] Last Admin: 09/09/18 09:33 Dose: 250 mg Simethicone (Mylicon Chew Tab) 80 mg PO QID [facility] Stop: 09/10/18 14:01 Last Admin: 09/09/18 09:33 Dose: 80 mg Tiotropium [place] (Spiriva) 18 mcg INH RQ24 [facility] Stop: 09/18/18 08:01 Tiotropium [place] (Spiriva Inhalation Handihaler Device) 1 inhaler INH ONCE ONE Stop: 09/09/18 13:26 Vitamin A (Vitamin A & D Oint Ud Foilpak) 1 ea TOP BID [facility] Last Admin: 09/09/18 09:32 Dose: 1 ea - Labs Labs: 09/09/18 07:46 09/09/18 07:46 Assessment and Plan - Assessment and Plan (Free Text) Assessment: 58 y/o f with mycoplasma PNA, COPD/Asthma, DM, HTN being hospitalized initially for LE pain now being actively treated for m. pneumoniae and controlling her COPD/Asthma. mycoplasma PNA -Tmax 101.5, then 100.7 on 09/03, 6am shortly after first dose of zosyn. PICC inserted 09/03 -Spoke to Dr. Holliday - discontinue ceftaroline 400 mg and transition moxifloxacin 400 mg IV to PO x 5 days -florastor 250 mg PO BID -procalcitonin downtrending -legionella AB negative 09/03 -Bcx no growth COPD/asthma -duonebs q6h PRN -BiPAB at night -solumedrol 20 mg IV q12 transition to 20 mg PO -added spiriva 18 mcg (tiotropium) -Phamacy without advair so added breo per their recommendations (fluticasone/vilanterol) -s/p racemic epi 2.25 x 1 09/05 -mucinex 600mg PO BID -viki harris -follow Dr. Vicente stringer DM -BG was 400s >24h ago, now 200s/300s after insulin adjustment by Dr. Camarena (endo) -novolog 30 U TID before meals -lantus q12h 5 units changed to 60 units sq qhs -patient on HARJINDER - losartan 100 mg daily renoprotection -decreased today on 09/08 solumedrol to 20 mg IV BID TIM 2/2 FLORINDA most likely per renal - resolving, electrolyte abnormalities -hyperphos and hypocalcemia trend -PTH high at 173 (normal range 14-64). Hyperparathyroid workup needed outpatient -phoslo 667 mg x 1 as needed -trend electrolytes -Dr. Kumar following (nephro) HTN -BP range currently 136-146/84-90 (>24 h ago, up to 180s/100s and s/p hydralazine 10 mg PO x 1; now more controlled) -dilt 180 mg PO (home med) -losartan 100 mg daily (increased on 09/08) -per nephro Dr. Kumar, patient can resume her lasix 20 mg (the latter as renal function improved 2/2 FLORINDA) polysubstance use -counseling -UDS positive for methadone, on methadone 120 mg maintenance (dosage confirmed by RN who called the clinic) -f/u with methadone clinic for possible tapering constipation -simethicone 40 mg QID PRN -miralax daily -dulcolax suppository reordered; pt requests RN to insert -resumed colace 100 mg BID DVT ppx: heparin 5000mg sq GI ppx: protonix 40 mg PO dispo: d/c home with physical therapy services; HTN and glucose better controlled. d/c with new meds spiriva and advair. case discussed with Dr. Gissel Diego, DO PGY-1
[2018-09-09 16:02] VITALS: BP 126/81; TEMP 98.2; O2SAT 95
--- NOTE | 2018-09-09 16:02 | CP.PCM.DIS ---
Provider - Provider Date of Admission: 09/02/18 22:30 Attending physician: Gabriele Florian MD Time Spent in preparation of Discharge (in minutes): 45 Hospital Course - Lab Results Lab Results: Micro Results 09/02/18 23:00 Blood-Venous Blood Culture - Final NO GROWTH AFTER 5 DAYS 09/02/18 23:00 Blood-Venous Gram Stain - Final TEST NOT PERFORMED 09/02/18 22:32 Blood-Venous Blood Culture - Final NO GROWTH AFTER 5 DAYS 09/02/18 22:32 Blood-Venous Gram Stain - Final TEST NOT PERFORMED Most Recent Lab Values WBC 12.5 K/uL (4.8-10.8) H 09/09/18 07:46 RBC 5.19 Mil/uL (3.80-5.20) 09/09/18 07:46 Hgb 11.0 g/dL (11.0-16.0) 09/09/18 07:46 Hct 35.8 % (34.0-47.0) 09/09/18 07:46 MCV 68.9 fL (81.0-99.0) L 09/09/18 07:46 MCH 21.2 pg (27.0-31.0) L 09/09/18 07:46 MCHC 30.7 g/dL (33.0-37.0) L 09/09/18 07:46 RDW 17.4 % (11.5-14.5) H 09/09/18 07:46 Plt Count 252 K/uL (130-400) 09/09/18 07:46 MPV 10.2 fL (7.2-11.7) 09/09/18 07:46 Neut % (Auto) 72.0 % (50.0-75.0) 09/09/18 07:46 Lymph % (Auto) 18.7 % (20.0-40.0) L 09/09/18 07:46 [place] % (Auto) 9.1 % (0.0-10.0) 09/09/18 07:46 Eos % (Auto) 0.0 % (0.0-4.0) 09/09/18 07:46 Baso % (Auto) 0.2 % (0.0-2.0) 09/09/18 07:46 Neut # (Auto) 9.0 K/uL (1.8-7.0) H 09/09/18 07:46 Lymph # (Auto) 2.3 K/uL (1.0-4.3) 09/09/18 07:46 [place] # (Auto) 1.1 K/uL (0.0-0.8) H 09/09/18 07:46 Eos # (Auto) 0.0 K/uL (0.0-0.7) 09/09/18 07:46 Baso # (Auto) 0.0 K/uL (0.0-0.2) 09/09/18 07:46 Neutrophils % (Manual) 83 % (50-75) H 09/06/18 06:57 Band Neutrophils % 2 % (0-2) 09/06/18 06:57 Lymphocytes % (Manual) 11 % (20-40) L 09/06/18 06:57 Monocytes % (Manual) 4 % (0-10) 09/06/18 06:57 Nucleated RBC % 1 % (0-0) H 09/06/18 06:57 Platelet Estimate Normal (NORMAL) 09/06/18 06:57 Large Platelets Present 09/06/18 06:57 Polychromasia Slight 09/06/18 06:57 Hypochromasia (manual) Slight 09/06/18 06:57 Poikilocytosis (manual Slight 09/06/18 06:57 Basophilic Stippling Slight 09/06/18 06:57 Anisocytosis (manual) Slight 09/06/18 06:57 Microcytosis (manual) Slight 09/06/18 06:57 Tear Drop Cells Slight 09/06/18 06:57 Ovalocytes Slight 09/06/18 06:57 Rogerio Cells Slight 09/06/18 06:57 Puncture Site Lr 09/03/18 09:02 pCO2 65 mm/Hg (35-45) H 09/03/18 09:02 pO2 87 mm/Hg (80-100) 09/03/18 09:02 HCO3 30.8 mmol/L (21-28) H 09/03/18 09:02 ABG pH 7.34 (7.35-7.45) L 09/03/18 09:02 ABG Total CO2 37.1 mmol/L (22-28) H 09/03/18 09:02 ABG O2 Saturation 97.7 % (95-98) 09/03/18 09:02 ABG Base Excess 7.6 mmol/L (-2.0-3.0) H 09/03/18 09:02 ABG Hemoglobin 10.7 g/dL (11.7-17.4) L 09/03/18 09:02 ABG Carboxyhemoglobin 2.1 % (0.5-1.5) H 09/03/18 09:02 POC ABG HHb (Measured) 2.2 % (0.0-5.0) 09/03/18 09:02 ABG Methemoglobin 1.0 % (0.0-3.0) 09/03/18 09:02 Arik Test Pos 09/03/18 09:02 A-a O2 Difference 117.0 mm/Hg 09/03/18 09:02 Respiratory Index 1.3 09/03/18 09:02 Hgb O2 Saturation 94.7 % (95.0-98.0) L 09/03/18 09:02 Vent Mode Bipap 09/03/18 09:02 FiO2 40.0 % 09/03/18 09:02 Inspiratory BiPAP 12 09/03/18 09:02 Expiratory BiPAP 5 09/03/18 09:02 Sodium 133 mmol/L (132-148) 09/09/18 07:46 Potassium 4.9 mmol/L (3.6-5.2) 09/09/18 07:46 Chloride 88 mmol/L (98-107) L 09/09/18 07:46 Carbon Dioxide 38 mmol/L (22-30) H 09/09/18 07:46 Anion Gap 12 (10-20) 09/09/18 07:46 BUN 39 mg/dL (7-17) H 09/09/18 07:46 Creatinine 1.1 mg/dL (0.7-1.2) 09/09/18 07:46 Est GFR ( Amer) > 60 09/09/18 07:46 Est GFR (Non-Af Amer) 51 09/09/18 07:46 POC Glucose (mg/dL) 256 mg/dL (65-110) H 09/09/18 11:18 Random Glucose 315 mg/dL (65-105) H 09/09/18 07:46 Hemoglobin A1c 9.3 % (4.2-6.5) H 09/04/18 07:49 Calcium 9.3 mg/dl (8.6-10.4) 09/09/18 07:46 Phosphorus 3.8 mg/dL (2.5-4.5) 09/08/18 06:58 Magnesium 1.8 mg/dL (1.6-2.3) 09/09/18 07:46 Total Bilirubin 0.5 mg/dL (0.2-1.3) 09/09/18 07:46 AST 25 U/L (14-36) 09/09/18 07:46 ALT 29 U/L (9-52) 09/09/18 07:46 Alkaline Phosphatase 76 U/L (38-126) 09/09/18 07:46 Total Creatine Kinase 68 U/L (30-135) 09/08/18 06:58 CK-MB (Mass) 2.35 ng/mL (0.0-3.38) 09/08/18 06:58 Troponin I < 0.0120 ng/mL (0.00-0.120) 09/08/18 06:58 NT-Pro-B Natriuret Pep 86.5 pg/mL (0-900) 09/03/18 07:44 Total Protein 6.9 g/dL (6.3-8.3) 09/09/18 07:46 Albumin 3.5 g/dL (3.5-5.0) 09/09/18 07:46 Globulin 3.3 gm/dL (2.2-3.9) 09/09/18 07:46 Albumin/Globulin Ratio 1.1 (1.0-2.1) 09/09/18 07:46 Triglycerides 115 mg/dL (0-149) D 09/04/18 07:49 Cholesterol 188 mg/dL (0-199) 09/04/18 07:49 LDL Cholesterol Direct 113 mg/dL (0-129) 09/04/18 07:49 HDL Cholesterol 41 mg/dL (30-70) 09/04/18 07:49 Procalcitonin 0.82 NG/ML (0.19-0.49) H 09/08/18 06:58 PTH Intact Whole Mole[place] 188 pg/mL (14-64) H 09/06/18 11:11 Urine Color Yellow (YELLOW) 09/04/18 19:25 Urine Clarity Clear (Clear) 09/04/18 19:25 Urine pH 5.0 (5.0-8.0) 09/04/18 19:25 Ur Specific [place] 1.018 (1.003-1.030) 09/04/18 19:25 Urine Protein 1+ mg/dL (NEGATIVE) H 09/04/18 19:25 Urine Glucose (UA) Normal mg/dL (Normal) 09/04/18 19:25 Urine Ketones Negative mg/dL (NEGATIVE) 09/04/18 19:25 Urine Blood Negative (NEGATIVE) 09/04/18 19:25 Urine Nitrate Negative (NEGATIVE) 09/04/18 19:25 Urine Bilirubin Negative (NEGATIVE) 09/04/18 19:25 Urine Urobilinogen Normal mg/dL (0.2-1.0) 09/04/18 19:25 Ur Leukocyte Esterase Neg Jean/uL (Negative) 09/04/18 19:25 Urine WBC (Auto) 3 /hpf (0-5) 09/04/18 19:25 Urine RBC (Auto) 1 /hpf (0-3) 09/04/18 19:25 Ur Squamous Epith Cells 2 /hpf (0-5) 09/04/18 19:25 Hyaline Casts 0-2 /lpf (0-2) 09/04/18 19:25 Ur Random Creatinine 114.2 mg/dL 09/04/18 19:25 U Random Total Protein 567 mg/g creat (21-161) H 09/04/18 19:49 Ur Random Sodium 21 mmol/L 09/04/18 19:25 Random Vancomycin < 5.0 ug/mL 09/04/18 19:21 Urine Opiates Screen Negative (NEGATIVE) 09/03/18 15:27 Urine Methadone Screen Positive (NEGATIVE) H 09/03/18 15:27 Ur Barbiturates Screen Negative (NEGATIVE) 09/03/18 15:27 Ur Phencyclidine Scrn Negative (NEGATIVE) 09/03/18 15:27 Ur Amphetamines Screen Negative (NEGATIVE) 09/03/18 15:27 U Benzodiazepines Scrn Negative (NEGATIVE) 09/03/18 15:27 U Oth Cocaine Metabols Negative (NEGATIVE) 09/03/18 15:27 U Cannabinoids Screen Negative (NEGATIVE) 09/03/18 15:27 Hepatitis A IgM Ab Negative (NEGATIVE) 09/04/18 07:49 Hep Bs Antigen Negative (NEGATIVE) 09/04/18 07:49 Hep B Core IgM Ab Negative (NEGATIVE) 09/04/18 07:49 Hepatitis C Antibody Negative (NEGATIVE) 09/04/18 07:49 HIV 1&2 Antibody Screen Negative (NEGATIVE) 09/04/18 07:49 Ur L.pneumophila Ag Negative (NEGATIVE) 09/03/18 21:41 Mycoplasma pneumon IgM Positive (NEGATIVE) H 09/04/18 07:49 - Hospital Course Hospital Course: Patient is to be discharged home. Patient is to take the following medications: -Aspirin 81 mg - take one tablet by mouth daily -diltiazem HCl 180 mg - take one tablet by mouth daily -breo ellipta 100-25 mcg INH - inhale one puff by mouth daily -furosemide 20 mg - take one tablet by mouth daily -hydralazine 10 mg - take one tablet by mouth daily -novolog 30 units subcutaneously before meals three times a day -lantus 60 units subcutaneously before bedtime -losartan 100 mg tab - take one tablet by mouth daily -moxifloxacin 400 mg tab - take one tablet by mouth daily for 5 days -spiriva 18 mcg cap - inhale one puff by mouth daily -continue with home methadone 120 mg by mouth Patient is to follow up with: -Your primary care physician, Dr. Carr within one week of discharge -Dr. Zhang (pulmonology) -Dr. Kumar (nephrology) -Dr. Camarena (endocrinology) -follow up in the methadone clinic If chest pain, shortness of breath, or leg pain returns, seek medical attention immediately. All instructions explained to the patient and she agrees. - Date & Time of H&P Date of H&P: 09/09/18 Time of H&P: 19:27 Discharge Exam - Head Exam Head Exam: NORMAL INSPECTION - Eye Exam Eye Exam: EOMI, Normal appearance - Respiratory Exam Respiratory Exam: Wheezes, NORMAL BREATHING PATTERN - Cardiovascular Exam Cardiovascular Exam: REGULAR RHYTHM - Neurological Exam Neurological exam: Alert, Normal Gait, Oriented x3 - Psychiatric Exam Psychiatric exam: Normal Affect, Normal Mood - Skin Skin Exam: Dry, Intact, Normal Color, Warm Discharge Plan - Discharge Medications Prescriptions: Aspirin [Ecotrin] 81 mg PO DAILY #30 tabec Diltiazem HCl [Diltiazem 24Hr Cd] 180 mg PO DAILY #30 cap.er.24h Fluticasone/Vilanterol 100/25 [Breo Ellipta 100-25 MCG INH] 1 puff INH RQD #30 puff Furosemide [Lasix] 20 mg PO BID #60 tab hydrALAZINE [Apresoline] 10 mg PO DAILY #30 tab Insulin Aspart, Recombinant [Novolog] 30 unit SC AC 30 Days unit Insulin Glargine, Recombina [Lantus] 60 unit SC HS 30 Days unit Losartan [Cozaar] 100 mg PO DAILY #30 tab Moxifloxacin [Avelox] 400 mg PO DAILY #5 tab Tiotropium [Spiriva] 18 mcg INH RQ24 #30 cap - Follow Up Plan Condition: GUARDED Disposition: HOME/ ROUTINE Instructions: Heart Healthy Diet, Heart Failure, Adult (DC), Moxifloxacin (Systemic), Pneumonia, Adult (DC) Additional Instructions: Patient is to be discharged home. Patient is to take the following medications: -Aspirin 81 mg - take one tablet by mouth daily -diltiazem HCl 180 mg - take one tablet by mouth daily -breo ellipta 100-25 mcg INH - inhale one puff by mouth daily -furosemide 20 mg - take one tablet by mouth daily -hydralazine 10 mg - take one tablet by mouth daily -novolog 30 units subcutaneously before meals three times a day -lantus 60 units subcutaneously before bedtime -losartan 100 mg tab - take one tablet by mouth daily -moxifloxacin 400 mg tab - take one tablet by mouth daily for 5 days -spiriva 18 mcg cap - inhale one puff by mouth daily -continue with home methadone 120 mg by mouth Patient is to follow up with: -Your primary care physician, Dr. Carr within one week of discharge -Dr. Zhagn (pulmonology) -Dr. Kumar (nephrology) -Dr. Camarena (endocrinology) -follow up in the methadone clinic If chest pain, shortness of breath, or leg pain returns, seek medical attention immediately. All instructions explained to the patient and she agrees. Referrals: Kartik Carr DO [Doctor Osteopathy] - Martín Zhang MD [Staff Provider] - Tiny Camarena MD [Medical Doctor] - Tavo Kumar MD [Staff Provider] -
[2018-09-09 16:09] VITALS: PULSE 77
--- NOTE | 2018-09-09 16:43 | CP.PCM.PN ---
Subjective - Date & Time of Evaluation Date of Evaluation: 09/09/18 Time of Evaluation: 12:20 - Subjective Subjective: Patient seen and examined at bedside. Patient states that she feels much better today. Patient admits to mild shortness of breath, but states that she has been using BiPAP at night and NC during the day which improves her symptoms. Also complains of mild cough with phlegm production. Patient states that her symptoms of dry throat have improved a lot since yesterday. Objective - Vital Signs/Intake and Output Vital Signs (last 24 hours): Temp Pulse Resp BP Pulse Ox 98.2 F 77 20 126/81 95 09/09/18 15:00 09/09/18 16:08 09/09/18 15:00 09/09/18 15:00 09/09/18 15:00 - Medications Medications: Current Medications Acetaminophen (Tylenol 325mg Tab) 650 mg PO Q6 PRN PRN Reason: Fever >100.4 F Last Admin: 09/03/18 05:08 Dose: 650 mg Albuterol Sulfate (Albuterol 0.083% Inhal Gay (2.5 Mg/3 Ml) Ud) 2.5 mg INH RQ2 PRN PRN Reason: Wheezing Last Admin: 09/08/18 12:00 Dose: 2.5 mg Albuterol/Ipratropium (Duoneb 3 Mg/0.5 Mg (3 Ml) Ud) 3 ml INH RQ6 VIOLA Last Admin: 09/09/18 13:20 Dose: 3 ml Artificial Tears (Artificial Tears Refresh Celluvisc) 0 ml OU BID VIOLA Last Admin: 09/09/18 09:47 Dose: 1 drop Aspirin (Ecotrin) 81 mg PO DAILY VIOLA Last Admin: 09/09/18 09:33 Dose: 81 mg Benzonatate (Tessalon Perles) 100 mg PO TID VIOLA Last Admin: 09/09/18 14:45 Dose: 100 mg Bisacodyl (Dulcolax) 10 mg NM DAILY [facility] Stop: 09/12/18 13:30 Last Admin: 09/09/18 09:41 Dose: Not Given Dextrose (Dextrose 50% Inj) 0 ml IV STAT PRN; Protocol PRN Reason: Hypoglycemia Protocol Dextrose (Glutose 15) 0 gm PO ONCE PRN; Protocol PRN Reason: Hypoglycemia Protocol Diltiazem HCl (Cardizem Cd) 180 mg PO DAILY [facility] Last Admin: 09/09/18 09:33 Dose: 180 mg Docusate Sodium (Colace) 100 mg PO BID VIOLA Stop: 09/14/18 18:01 Fluticasone/Vilanterol (Breo Ellipta 100-25 Mcg Inh) 1 puff INH RQD VIOLA Stop: 09/18/18 08:01 Furosemide (Lasix) 20 mg PO BID VIOLA Last Admin: 09/09/18 09:35 Dose: 20 mg Glucagon (Glucagen Diagnostic Kit) 0 mg IM STAT PRN; Protocol PRN Reason: Hypoglycemia Protocol Guaifenesin (Mucinex La) 600 mg PO Q12 [facility] Last Admin: 09/09/18 09:33 Dose: 600 mg Hydrochlorothiazide (Microzide) 12.5 mg PO DAILY [facility] Last Admin: 09/03/18 09:27 Dose: 12.5 mg Insulin Aspart (Novolog) 0 unit SC ACHS [facility] Last Admin: 09/09/18 16:33 Dose: Not Given Insulin Aspart (Novolog) 30 unit SC AC VIOLA Last Admin: 09/09/18 12:39 Dose: 30 u Insulin Glargine (Lantus) 60 unit SC HS [facility] Last Admin: 09/08/18 22:20 Dose: 60 units Losartan Potassium (Cozaar) 100 mg PO DAILY [facility] Stop: 09/15/18 10:01 Last Admin: 09/09/18 09:33 Dose: 100 mg Moxifloxacin HCl (Avelox) 400 mg PO DAILY [facility]; Protocol Pantoprazole Sodium (Protonix Ec Tab) 40 mg PO DAILY [facility] Last Admin: 09/09/18 09:33 Dose: 40 mg Prednisone (Prednisone Tab) 20 mg PO BID [facility] Saccharomyces Boulardii (Florastor) 250 mg PO BID [facility] Last Admin: 09/09/18 09:33 Dose: 250 mg Simethicone (Mylicon Chew Tab) 80 mg PO QID [facility] Stop: 09/10/18 14:01 Last Admin: 09/09/18 14:45 Dose: 80 mg Tiotropium [place] (Spiriva) 18 mcg INH RQ24 [facility] Stop: 09/18/18 08:01 Vitamin A (Vitamin A & D Oint Ud Foilpak) 1 ea TOP BID VIOLA Last Admin: 09/09/18 09:32 Dose: 1 ea - Labs Labs: 09/09/18 07:46 10/30/18 07:46 Assessment and Plan (1) Mycoplasma pneumonia Status: Acute (2) COPD exacerbation Status: Acute (3) SANTY (obstructive sleep apnea) Status: Acute
[2018-09-10] MEDS ORDERED: Fluticasone-Vilanterol 100/25mcg Diskus INH SCH (08:00)
[2018-09-10] MEDS ORDERED: Tiotropium 18 mcg Cap For Inhalation INH SCH (08:00)
--- NOTE | 2018-09-10 11:03 | PN ---
DMELOIATE: 09/09/2018 LOCATION: Room 663. SUBJECTIVE: This is a 68-year-old female with recent uncontrolled type 2 insulin-requiring diabetes, presenting here with acute exacerbation of COPD with a concomitant multifocal pneumonia and receiving IV antibiotic management, and is also being followed closely for metabolic management. Her glycemic levels are fluctuating, but improved and the glucose levels have ranged from 208 to 256 and 323 mg/dL. Her chemistries show a BUN of 39, sodium 133, potassium 4.9, chloride 88, CO2 38, and glucose 316, with creatinine of 1.1. ASSESSMENT AND PLAN: So at this time, we will modify once again her basal and bolus insulin regimen and increase the Lantus to 60 units subcutaneous at bedtime daily to start tonight. We will also increase her NovoLog to 30 units subcutaneous t.i.d. before meals to start today as ordered. We will obtain serial chemistries and supplement accordingly as needed. We will follow. Tiny Camarena MD
== END 2018-09-09 18:24 | disposition home or self-care (01) | DRG 584 ==
LOC: C.ER 17:05 → C.9E 22:30 → C.6T 23:08
PROVIDERS: ADMIT Family Medicine; ATTEND Family Medicine
PROC: 5A09557 Assistance with Respiratory Ventilation, Greater than 96 Consecutive Hours, Continuous Positive Airway Pressure (ICD-10-PCS; principal; 2018-09-02)
PROC: 02HV33Z Insertion of Infusion Device into Superior Vena Cava, Percutaneous Approach (ICD-10-PCS; 2018-09-03)
DX: A41.9 Sepsis, unspecified organism (principal); J96.21 Acute and chronic respiratory failure with hypoxia; N17.0 Acute kidney failure with tubular necrosis; I50.33 Acute on chronic diastolic (congestive) heart failure; J15.7 Pneumonia due to Mycoplasma pneumoniae; J96.22 Acute and chronic respiratory failure with hypercapnia; E87.2 Acidosis; F11.20 Opioid dependence, uncomplicated; I11.0 Hypertensive heart disease with heart failure; J44.0 Chronic obstructive pulmonary disease with (acute) lower respiratory infection; J98.11 Atelectasis; L03.116 Cellulitis of left lower limb; L03.115 Cellulitis of right lower limb; E10.65 Type 1 diabetes mellitus with hyperglycemia; E20.9 Hypoparathyroidism, unspecified; J44.1 Chronic obstructive pulmonary disease with (acute) exacerbation; I69.354 Hemiplegia and hemiparesis following cerebral infarction affecting left non-dominant side; K59.00 Constipation, unspecified; R79.1 Abnormal coagulation profile; N14.1 Nephropathy induced by other drugs, medicaments and biological substances; Z68.43 Body mass index [BMI] 50.0-59.9, adult; I25.10 Atherosclerotic heart disease of native coronary artery without angina pectoris; E83.39 Other disorders of phosphorus metabolism; E83.51 Hypocalcemia; T50.8X5A Adverse effect of diagnostic agents, initial encounter; Y95 Nosocomial condition; F17.200 Nicotine dependence, unspecified, uncomplicated; E66.01 Morbid (severe) obesity due to excess calories; E78.5 Hyperlipidemia, unspecified; E78.00 Pure hypercholesterolemia, unspecified; G47.33 Obstructive sleep apnea (adult) (pediatric); L30.9 Dermatitis, unspecified; Z79.82 Long term (current) use of aspirin; Z79.4 Long term (current) use of insulin; Z79.899 Other long term (current) drug therapy; Z82.3 Family history of stroke; Z99.81 Dependence on supplemental oxygen